=== PATIENT | female | born 1960 | race Caucasian/White ===

== ENCOUNTER 2016-06-18 14:47 | Inpatient (IN) ==
--- NOTE | 2016-06-18 15:17 | Emergency Department Note ---
Disposition Clinical Impression: Foot ulcer due to secondary DM, Hyperglycemia, Sepsis, Bandemia, Hypoxia, Dyspnea, Microcytic anemia Disposition: Admitted As Inpatient Condition: Fair General Adult HPI - General Chief complaint: ED Shortness of Breath/Dyspnea Stated complaint: JESSIE Time Seen by Provider: 06/18/16 15:01 Source: patient, family Limitations: physical limitation - History of Present Illness Pain Scale: 10 - Related Data Home Medications Medication Instructions Recorded Confirmed Insulin Glargine,Hum.rec.anlog 10/15/14 10/15/14 [Lantus Solostar] Insulin Glargine,Hum.rec.anlog 90 10/15/14 10/15/14 [Lantus Solostar] Medroxyprogesterone Acetate 10/15/14 10/15/14 [Depo-Provera] NovoLOG 10/15/14 10/15/14 Omeprazole [Prilosec] 10/15/14 10/15/14 Oxycodone HCl 5 mg PO 10/15/14 10/15/14 Sertraline [Zoloft] 100 mg PO DAILY 10/15/14 10/15/14 Allergies Allergy/AdvReac Type Severity Reaction Status Date / Time No Known Allergies Allergy Verified 06/18/16 14:55 Past Medical History - Past Medical History Medical history: Reports: diabetes, GERD, hyperlipidemia Surgical history: Reports: cholecystectomy Psychiatric history: Reports: anxiety [employer] history: Reports: no [employer] history - Social History Smoking Status: Never smoker Smokeless Tobacco Status: No Alcohol use: Reports: none Drug use: Reports: unknown Physical Exam - General Limitations: physical limitation General appearance: alert, in no apparent distress Course Vital Signs Temperature 98.0 F 06/18/16 14:55 Pulse Rate 111 06/18/16 14:55 Respiratory Rate 22 06/18/16 14:55 Blood Pressure 105/57 06/18/16 14:55 O2 Sat by Pulse Oximetry 94 06/18/16 14:55 Temperature 98.4 F 06/19/16 03:51 Pulse Rate 100 06/19/16 03:51 Respiratory Rate 16 06/19/16 03:51 Blood Pressure 99/54 06/19/16 03:51 O2 Sat by Pulse Oximetry 96 06/19/16 03:51 Oxygen Delivery Oxygen Delivery Room Air Medical Decision Making - Lab Data Result diagrams: 06/19/16 03:33 04/09/17 03:33 Lab Results 06/18/16 06/18/16 06/18/16 Range/Units 15:47 15:47 15:47 WBC 11.1 (4.3-11.1) K/mcL RBC 4.27 (3.82-4.97) M/mcL Hgb 10.3 L (11.5-15.4) g/dL Hct 33.4 L (35.3-44.9) % MCV 78.2 L (83.0-100.0) fL MCH 24.1 L (28.0-33.3) pg MCHC 30.8 L (31.6-35.5) g/dL RDW 15.9 H (11.5-14.5) % Plt Count 148 (140-400) K/mcL MPV 10.2 (9.4-12.4) fL Seg Neutrophils % 70.0 % Band Neutrophils % 20.0 H (0-4) % Lymphocytes % 2.0 % Monocytes % 6.0 % Metamyelocytes % 2.0 H (0) % Neutrophils # 10.0 H (1.6-8.9) K/mcL Lymphocytes # 0.2 L (0.6-4.6) K/mcL Monocytes # 0.7 (0.0-1.3) K/mcL Platelet Estimate Normal (Normal) Polychromasia 1+ A (Not Present) D-Dimer 6782 H (0-500) ng/mLFEU VBG pH (7.32-7.42) pH Units VBG pCO2 (41-51) mmHg VBG pO2 (25-40) mmHg VBG HCO3 (21-27) mEq/L Sodium 129 L (136-145) mEq/L Potassium 4.2 (3.5-4.5) mEq/L Chloride 94 L (98-109) mEq/L Carbon Dioxide 21 (19-29) mEq/L BUN 19 (7-20) mg/dL Creatinine 0.85 (0.57-1.11) mg/dL Est GFR ( Amer) > 60 (> 60) Est GFR (Non-Af Amer) > 60 (> 60) BUN/Creatinine Ratio 22 (6-26) Glucose 451 H (70-99) mg/dL Calculated Osmolality 290 (280-300) Lactic Acid (0.5-2.2) mmol/L Calcium 8.8 (8.6-10.8) mg/dL Total Bilirubin 1.3 H (0.2-1.2) mg/dL Direct Bilirubin 0.6 H (0.0-0.5) mg/dL Indirect Bilirubin 0.7 (0.0-1.2) mg/dL AST 9 (5-34) Units/L ALT 8 (0-55) Units/L Alkaline Phosphatase 86 (38-126) Units/L Troponin I (0-0.03) ng/mL B-Natriuretic Peptide (0-100) pg/mL Serum Total Protein 6.2 (6.0-8.3) g/dL Albumin 2.3 L (3.5-5.0) g/dL Globulin 3.9 H (2.4-3.5) g/dL Albumin/Globulin Ratio 0.6 L (1.1-2.2) Beta-Hydroxybutyric Acd > 2.00 H (0.02-0.27) mmol/L Urine Color (Yellow) Urine Clarity (Clear) Urine pH (5.0-8.0) pH Units Ur Specific [place] (1.010-1.025) Urine Protein (Neg-Trace) mg/dL Urine Glucose (UA) (Normal) mg/dL Urine Ketones (Negative) mg/dL Urine Blood (Negative) Urine Nitrite (Negative) Urine Bilirubin (Negative) Urine Urobilinogen (Normal) mg/dL Ur Leukocyte Esterase (Negative) Urine Microscopic RBC (0-3) per hpf Urine Microscopic WBC (0-3) per hpf Ur Squamous Epith Cells (None-Few) per lpf Urine Bacteria (None-Few) per hpf Hyaline Casts (None-Few) per lpf Ur Culture Indicated? (NO) 06/18/16 06/18/16 06/18/16 Range/Units 15:47 15:47 16:53 WBC (4.3-11.1) K/mcL RBC (3.82-4.97) M/mcL Hgb (11.5-15.4) g/dL Hct (35.3-44.9) % MCV (83.0-100.0) fL MCH (28.0-33.3) pg MCHC (31.6-35.5) g/dL RDW (11.5-14.5) % Plt Count (140-400) K/mcL MPV (9.4-12.4) fL Seg Neutrophils % % Band Neutrophils % (0-4) % Lymphocytes % % Monocytes % % Metamyelocytes % (0) % Neutrophils # (1.6-8.9) K/mcL Lymphocytes # (0.6-4.6) K/mcL Monocytes # (0.0-1.3) K/mcL Platelet Estimate (Normal) Polychromasia (Not Present) D-Dimer (0-500) ng/mLFEU VBG pH (7.32-7.42) pH Units VBG pCO2 (41-51) mmHg VBG pO2 (25-40) mmHg VBG HCO3 (21-27) mEq/L Sodium (136-145) mEq/L Potassium (3.5-4.5) mEq/L Chloride (98-109) mEq/L Carbon Dioxide (19-29) mEq/L BUN (7-20) mg/dL Creatinine (0.57-1.11) mg/dL Est GFR ( Amer) (> 60) Est GFR (Non-Af Amer) (> 60) BUN/Creatinine Ratio (6-26) Glucose (70-99) mg/dL Calculated Osmolality (280-300) Lactic Acid (0.5-2.2) mmol/L Calcium (8.6-10.8) mg/dL Total Bilirubin (0.2-1.2) mg/dL Direct Bilirubin (0.0-0.5) mg/dL Indirect Bilirubin (0.0-1.2) mg/dL AST (5-34) Units/L ALT (0-55) Units/L Alkaline Phosphatase (38-126) Units/L Troponin I 0.01 (0-0.03) ng/mL B-Natriuretic Peptide 193 H (0-100) pg/mL Serum Total Protein (6.0-8.3) g/dL Albumin (3.5-5.0) g/dL Globulin (2.4-3.5) g/dL Albumin/Globulin Ratio (1.1-2.2) Beta-Hydroxybutyric Acd (0.02-0.27) mmol/L Urine Color Yellow (Yellow) Urine Clarity Cloudy A (Clear) Urine pH 6.0 (5.0-8.0) pH Units Ur Specific [place] > 1.030 H (1.010-1.025) Urine Protein 30 H (Neg-Trace) mg/dL Urine Glucose (UA) >=1000 H (Normal) mg/dL Urine Ketones 40 H (Negative) mg/dL Urine Blood Trace H (Negative) Urine Nitrite Negative (Negative) Urine Bilirubin Moderate H (Negative) Urine Urobilinogen Normal (Normal) mg/dL Ur Leukocyte Esterase Negative (Negative) Urine Microscopic RBC 0-3 (0-3) per hpf Urine Microscopic WBC 15-30 H (0-3) per hpf Ur Squamous Epith Cells Many H (None-Few) per lpf Urine Bacteria Many H (None-Few) per hpf Hyaline Casts None Seen (None-Few) per lpf Ur Culture Indicated? YES A (NO) 06/18/16 06/18/16 Range/Units 17:53 17:53 WBC (4.3-11.1) K/mcL RBC (3.82-4.97) M/mcL Hgb (11.5-15.4) g/dL Hct (35.3-44.9) % MCV (83.0-100.0) fL MCH (28.0-33.3) pg MCHC (31.6-35.5) g/dL RDW (11.5-14.5) % Plt Count (140-400) K/mcL MPV (9.4-12.4) fL Seg Neutrophils % % Band Neutrophils % (0-4) % Lymphocytes % % Monocytes % % Metamyelocytes % (0) % Neutrophils # (1.6-8.9) K/mcL Lymphocytes # (0.6-4.6) K/mcL Monocytes # (0.0-1.3) K/mcL Platelet Estimate (Normal) Polychromasia (Not Present) D-Dimer (0-500) ng/mLFEU VBG pH 7.45 H (7.32-7.42) pH Units VBG pCO2 33 L (41-51) mmHg VBG pO2 89 H (25-40) mmHg VBG HCO3 22.9 (21-27) mEq/L Sodium (136-145) mEq/L Potassium (3.5-4.5) mEq/L Chloride (98-109) mEq/L Carbon Dioxide (19-29) mEq/L BUN (7-20) mg/dL Creatinine (0.57-1.11) mg/dL Est GFR ( Amer) (> 60) Est GFR (Non-Af Amer) (> 60) BUN/Creatinine Ratio (6-26) Glucose (70-99) mg/dL Calculated Osmolality (280-300) Lactic Acid 1.1 (0.5-2.2) mmol/L Calcium (8.6-10.8) mg/dL Total Bilirubin (0.2-1.2) mg/dL Direct Bilirubin (0.0-0.5) mg/dL Indirect Bilirubin (0.0-1.2) mg/dL AST (5-34) Units/L ALT (0-55) Units/L Alkaline Phosphatase (38-126) Units/L Troponin I (0-0.03) ng/mL B-Natriuretic Peptide (0-100) pg/mL Serum Total Protein (6.0-8.3) g/dL Albumin (3.5-5.0) g/dL Globulin (2.4-3.5) g/dL Albumin/Globulin Ratio (1.1-2.2) Beta-Hydroxybutyric Acd (0.02-0.27) mmol/L Urine Color (Yellow) Urine Clarity (Clear) Urine pH (5.0-8.0) pH Units Ur Specific [place] (1.010-1.025) Urine Protein (Neg-Trace) mg/dL Urine Glucose (UA) (Normal) mg/dL Urine Ketones (Negative) mg/dL Urine Blood (Negative) Urine Nitrite (Negative) Urine Bilirubin (Negative) Urine Urobilinogen (Normal) mg/dL Ur Leukocyte Esterase (Negative) Urine Microscopic RBC (0-3) per hpf Urine Microscopic WBC (0-3) per hpf Ur Squamous Epith Cells (None-Few) per lpf Urine Bacteria (None-Few) per hpf Hyaline Casts (None-Few) per lpf Ur Culture Indicated? (NO) Critical Care Time Critical Care Time: Yes Total Critical Care Time: 30 Attestation: SIRS criteria with sepsis protocol followed. IV fluids not given per weight based sepsis protocol due to chest x-ray findings and peripheral edema. Patient is not hypotensive. Broad spectrum antibiotics initiated Attestation Statement - Attestation Attestation: I examined this patient and my medical decision-making was reviewed with the IV TECHNICIAN/PA/Advanced Practice Nurse/Resident Physician. I agree with the documented findings, disposition and treatment plan as described except to the extent set forth below. Face to face time provided She presents with exertional dyspnea over the past several days. She recent saw her primary care provider who prescribed a diuretic. The patient voluntarily stopped taking it. On exam she is mildly tachypneic, tachycardic, hypoxic there is no evidence of increased work of breathing. She is smiling. The plan of care and management was discussed by me with the resident physician . 17:06: Patient has a left shift (bandemia). Etiology of infection in completely certain. She has a left diabetic foot ulcer. She is hyperglycemic. She has a macrocytic anemia. We will follow the sepsis protocol without getting the 30 mL per KG fluid bolus due to her peripheral edema and recent need for Lasix and chest x-ray findings suggestive of some congestive failure. She is not hypotensive.
--- NOTE | 2016-06-18 15:21 | Emergency Department Note ---
Disposition Clinical Impression: Foot ulcer due to secondary DM, Hyperglycemia, Bandemia, Hypoxia, Microcytic anemia Sepsis Qualifiers: Sepsis type: sepsis due to unspecified organism Qualified Code(s): A41.9 - Sepsis, unspecified organism Dyspnea Qualifiers: Dyspnea type: unspecified Qualified Code(s): R06.00 - Dyspnea, unspecified Disposition: Admitted As Inpatient Condition: Fair Referrals: Almas Ac DO [Primary Care Provider] - Forms: ED Satisfaction Letter Time of Disposition: 17:56 SOB HPI - General Chief Complaint: ED Shortness of Breath/Dyspnea Stated Complaint: JESSIE Time Seen by Provider: 06/18/16 15:01 Source: patient, family Mode of arrival: ambulatory Limitations: physical limitation Nursing Notes Reviewed: Yes Vital Signs Reviewed: Yes - History of Present Illness 55-year-old female history of insulin-dependent diabetes mellitus and liver hemangioma presents to the ED for difficulty breathing. This is been ongoing over the past 5 days. She reports noticing this on Monday while she is going to her family physicians office Dr. Almas Ac. As she was walking from her car into the office building she fell short of breath. She denies any chest pain, diaphoresis, nausea or vomiting. She was seen evaluated by her primary care physician and given diuretics. She voluntarily discontinued them on she was urinating more than usual and had 2 episodes of urinary functional incontinence due to her weakness and delay making it to the restroom. Denies any recent illness, fever, cough, chest pain. Denies any history of blood clots, recent long-distance travel, active cancer, hospitalization or major surgery. 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 Lenz for foot ulcers. History of cholecystectomy. She is a former smoker. Pt Subjective Complaint: shortness of breath - Related Data Home Medications Medication Instructions Recorded Confirmed Insulin Glargine,Hum.rec.anlog 10/15/14 10/15/14 [Lantus Solostar] Insulin Glargine,Hum.rec.anlog 90 10/15/14 10/15/14 [Lantus Solostar] Medroxyprogesterone Acetate 10/15/14 10/15/14 [Depo-Provera] NovoLOG 10/15/14 10/15/14 Omeprazole [Prilosec] 10/15/14 10/15/14 Oxycodone HCl 5 mg PO 10/15/14 10/15/14 Sertraline [Zoloft] 100 mg PO DAILY 10/15/14 10/15/14 Allergies Allergy/AdvReac Type Severity Reaction Status Date / Time No Known Allergies Allergy Verified 06/18/16 14:55 All systems ED: reviewed and negative except as stated. Constitutional: Denies: fever, chills Cardiovascular: Reports: dyspnea on exertion. Denies: chest pain Respiratory: Reports: dyspnea. Denies: cough, wheezes Gastrointestinal: Reports: vomiting. Denies: abdominal pain, nausea, diarrhea Genitourinary: Reports: frequency. Denies: urgency, dysuria, hematuria Musculoskeletal: Denies: back pain, neck pain Integumentary: Denies: rash Neurological: Denies: headache, weakness Endocrine: Reports: fatigue Past Medical History - Past Medical History Attestation: Yes The following information was validated with the patient. Source: patient Medical history: Reports: diabetes, GERD, hyperlipidemia Surgical history: Reports: cholecystectomy Psychiatric history: Reports: anxiety SCREEN MAKER history: Reports: no SCREEN MAKER history - Social History Smoking Status: Never smoker Smokeless Tobacco Status: No Alcohol use: Reports: none Drug use: Reports: unknown Physical Exam - General Limitations: physical limitation General appearance: alert, in no apparent distress - Head Head exam: atraumatic, normocephalic, normal inspection - Eye Eye exam: Present: normal appearance, PERRL, EOMI. Absent: scleral icterus - ENT ENT exam: normal exam, normal oropharynx, mucous membranes moist - Neck Neck exam: Present: normal inspection, full ROM, trachea midline - Chest Chest inspection: Present: normal inspection, symmetric chest wall rise. Absent : tenderness - Respiratory Respiratory exam: Present: normal lung sounds bilaterally, other (Low inspiratory effort, no crackles or rails). Absent: respiratory distress, wheezes - Cardiovascular Cardiovascular exam: Present: regular rate, normal rhythm, normal heart sounds - Abdominal Exam Abdominal exam: Present: soft, Non-Tender, normal bowel sounds, ascites. Absent : tenderness, distention, guarding, rebound, rigidity - Extremities Exam Extremities exam: Present: normal inspection, full ROM, normal capillary refill , pedal edema (+2). Absent: tenderness, calf tenderness - Neurological Exam Neurological exam: Present: alert, oriented X3, CN II-XII intact - Expanded Neurological Exam Patient oriented to: Present: person, place, time Speech: Present: fluid speech Cranial nerves: EOM function (II, III, IV, ): Normal, facial sensation (V): Normal, facial palsy (VII): Normal, gag reflex (IX): Normal, spinal accessory function (XI): Normal, tongue deviation (XII): Normal Cerebellar function: normal gait Motor strength - LUE: 5/5 Motor strength - RUE: 5/5 Motor strength - LLE: 5/5 Motor strength - RLE: 5/5 - Psychiatric Psychiatric exam: Present: normal affect, normal mood - Skin Skin exam: Present: warm, dry, intact, normal color Course Course Narrative: 55-year-old female presents to the ED for difficulty in breathing. She is afebrile, tachycardic, tachypneic and hypoxic. Does not appear in any respiratory distress. Speaks in full sentences. She is awake alert and oriented person place time. Heart is regular rate and rhythm. Lungs are clear auscultation bilaterally. She has +2 pitting edema bilaterally. She has an open left foot ulcer that is being addressed by her bike shop manager Dr. Lenz and recently debrided and placed on antibiotics. She has not started the antibiotics. Denies any history of cardiac ischemic disease or heart failure. We will get basic labs, troponin, BNP, CXR and EKG. She is low risk for PE and cannot be PERCed out, d-dimer ordered. Patient is in agreement with plan. - Reevaluation(s) Reevaluation #1: Patient has a bandemia along with tachycardia, SIRS criteria met. She is not hypotensive and CXR reveals moderate congestive heart failure. Due to recent treatment with Lasix for fluid overload and CXR findings will not initiate fluid resuscitation of 30 mL/kg. Unknown bandemia source possibly open wound left foot ulcer. She is hyperglycemic at 450 with false hyponatremia due to elevated glucose. 10U of regular insulin orderd. Lactate, serum ketones, VBG, and blood cultures ordered. Started on empiric broad spectrum antibiotics per sepsis order set Vanc and Zosyn. CTA pending with elevated d-dimer 6700. Will likely need admission for microcytic anemia, hyperglycemia, bandemia unknown source, SIRS, hypoxia, and dyspnea. Time: 17:03 Reevaluation #2: CT had the chest is not reveal any pulmonary embolism. There is atelectasis. Her serum ketones are elevated but she is not acidotic as her bicarb is 21. Her urine appears contaminated with many squamous cells as well as many bacteria , no leuk esterase or nitrites. Urine is cultured. Her pain is control at this moment. She is not actively nauseated or vomiting. She is has been initiated on broad spectrum antibiotics Zosyn and Vanc. Patient will be admitted for sepsis, bandemia, microcytic anemia, anemia, hyperglycemia, and foot ulcer. Time: 17:58 Reevaluation #3: Left foot x-ray shows soft tissue ulcer without evidence of osteomyelitis. Lactate 1.1. VBG shows slight alkalosis with 22 bicarb. O2 is 88. Time: 18:16 - Consultations Consultation #1: Spoke with on-call hospitalist sean Prado to admit for sepsis, bandemia, hypoxia, dyspnea, microcytic anemia, diabetic foot ulcer. No further orders at this time. Hospitalist made aware of pending lactate and left foot x-ray. History of Charcot foot and possible osteomyelitis. Time: 17:57 Vital Signs Temperature 98.0 F 06/18/16 14:55 Pulse Rate 111 06/18/16 14:55 Respiratory Rate 22 06/18/16 14:55 Blood Pressure 105/57 06/18/16 14:55 O2 Sat by Pulse Oximetry 94 06/18/16 14:55 Temperature 98.0 F 06/18/16 14:55 Pulse Rate 111 06/18/16 17:05 Respiratory Rate 20 06/18/16 17:05 Blood Pressure 102/45 06/18/16 17:05 O2 Sat by Pulse Oximetry 97 06/18/16 17:05 Oxygen Delivery Oxygen Delivery Nasal Cannula Shortness of Breath/Dyspnea - Medical Records Medical records reviewed: Yes I reviewed the patient's medical records. - Lab Data Lab results reviewed: Yes I reviewed the patient's lab results. Result diagrams: 06/18/16 15:47 06/18/16 15:47 Lab Results 06/18/16 06/18/16 06/18/16 Range/Units 15:47 15:47 15:47 WBC 11.1 (4.3-11.1) K/mcL RBC 4.27 (3.82-4.97) M/mcL Hgb 10.3 L (11.5-15.4) g/dL Hct 33.4 L (35.3-44.9) % MCV 78.2 L (83.0-100.0) fL MCH 24.1 L (28.0-33.3) pg MCHC 30.8 L (31.6-35.5) g/dL RDW 15.9 H (11.5-14.5) % Plt Count 148 (140-400) K/mcL MPV 10.2 (9.4-12.4) fL Seg Neutrophils % 70.0 % Band Neutrophils % 20.0 H (0-4) % Lymphocytes % 2.0 % Monocytes % 6.0 % Metamyelocytes % 2.0 H (0) % Neutrophils # 10.0 H (1.6-8.9) K/mcL Lymphocytes # 0.2 L (0.6-4.6) K/mcL Monocytes # 0.7 (0.0-1.3) K/mcL Platelet Estimate Normal (Normal) Polychromasia 1+ A (Not Present) D-Dimer 6782 H (0-500) ng/mLFEU VBG pH (7.32-7.42) pH Units VBG pCO2 (41-51) mmHg VBG pO2 (25-40) mmHg VBG HCO3 (21-27) mEq/L Sodium 129 L (136-145) mEq/L Potassium 4.2 (3.5-4.5) mEq/L Chloride 94 L (98-109) mEq/L Carbon Dioxide 21 (19-29) mEq/L BUN 19 (7-20) mg/dL Creatinine 0.85 (0.57-1.11) mg/dL Est GFR ( Amer) > 60 (> 60) Est GFR (Non-Af Amer) > 60 (> 60) BUN/Creatinine Ratio 22 (6-26) Glucose 451 H (70-99) mg/dL Calculated Osmolality 290 (280-300) Lactic Acid (0.5-2.2) mmol/L Calcium 8.8 (8.6-10.8) mg/dL Total Bilirubin 1.3 H (0.2-1.2) mg/dL Direct Bilirubin 0.6 H (0.0-0.5) mg/dL Indirect Bilirubin 0.7 (0.0-1.2) mg/dL AST 9 (5-34) Units/L ALT 8 (0-55) Units/L Alkaline Phosphatase 86 (38-126) Units/L Troponin I (0-0.03) ng/mL B-Natriuretic Peptide (0-100) pg/mL Serum Total Protein 6.2 (6.0-8.3) g/dL Albumin 2.3 L (3.5-5.0) g/dL Globulin 3.9 H (2.4-3.5) g/dL Albumin/Globulin Ratio 0.6 L (1.1-2.2) Beta-Hydroxybutyric Acd > 2.00 H (0.02-0.27) mmol/L Urine Color (Yellow) Urine Clarity (Clear) Urine pH (5.0-8.0) pH Units Ur Specific [place] (1.010-1.025) Urine Protein (Neg-Trace) mg/dL Urine Glucose (UA) (Normal) mg/dL Urine Ketones (Negative) mg/dL Urine Blood (Negative) Urine Nitrite (Negative) Urine Bilirubin (Negative) Urine Urobilinogen (Normal) mg/dL Ur Leukocyte Esterase (Negative) Urine Microscopic RBC (0-3) per hpf Urine Microscopic WBC (0-3) per hpf Ur Squamous Epith Cells (None-Few) per lpf Urine Bacteria (None-Few) per hpf Hyaline Casts (None-Few) per lpf Ur Culture Indicated? (NO) 06/18/16 06/18/16 06/18/16 Range/Units 15:47 15:47 16:53 WBC (4.3-11.1) K/mcL RBC (3.82-4.97) M/mcL Hgb (11.5-15.4) g/dL Hct (35.3-44.9) % MCV (83.0-100.0) fL MCH (28.0-33.3) pg MCHC (31.6-35.5) g/dL RDW (11.5-14.5) % Plt Count (140-400) K/mcL MPV (9.4-12.4) fL Seg Neutrophils % % Band Neutrophils % (0-4) % Lymphocytes % % Monocytes % % Metamyelocytes % (0) % Neutrophils # (1.6-8.9) K/mcL Lymphocytes # (0.6-4.6) K/mcL Monocytes # (0.0-1.3) K/mcL Platelet Estimate (Normal) Polychromasia (Not Present) D-Dimer (0-500) ng/mLFEU VBG pH (7.32-7.42) pH Units VBG pCO2 (41-51) mmHg VBG pO2 (25-40) mmHg VBG HCO3 (21-27) mEq/L Sodium (136-145) mEq/L Potassium (3.5-4.5) mEq/L Chloride (98-109) mEq/L Carbon Dioxide (19-29) mEq/L BUN (7-20) mg/dL Creatinine (0.57-1.11) mg/dL Est GFR ( Amer) (> 60) Est GFR (Non-Af Amer) (> 60) BUN/Creatinine Ratio (6-26) Glucose (70-99) mg/dL Calculated Osmolality (280-300) Lactic Acid (0.5-2.2) mmol/L Calcium (8.6-10.8) mg/dL Total Bilirubin (0.2-1.2) mg/dL Direct Bilirubin (0.0-0.5) mg/dL Indirect Bilirubin (0.0-1.2) mg/dL AST (5-34) Units/L ALT (0-55) Units/L Alkaline Phosphatase (38-126) Units/L Troponin I 0.01 (0-0.03) ng/mL B-Natriuretic Peptide 193 H (0-100) pg/mL Serum Total Protein (6.0-8.3) g/dL Albumin (3.5-5.0) g/dL Globulin (2.4-3.5) g/dL Albumin/Globulin Ratio (1.1-2.2) Beta-Hydroxybutyric Acd (0.02-0.27) mmol/L Urine Color Yellow (Yellow) Urine Clarity Cloudy A (Clear) Urine pH 6.0 (5.0-8.0) pH Units Ur Specific [place] > 1.030 H (1.010-1.025) Urine Protein 30 H (Neg-Trace) mg/dL Urine Glucose (UA) >=1000 H (Normal) mg/dL Urine Ketones 40 H (Negative) mg/dL Urine Blood Trace H (Negative) Urine Nitrite Negative (Negative) Urine Bilirubin Moderate H (Negative) Urine Urobilinogen Normal (Normal) mg/dL Ur Leukocyte Esterase Negative (Negative) Urine Microscopic RBC 0-3 (0-3) per hpf Urine Microscopic WBC 15-30 H (0-3) per hpf Ur Squamous Epith Cells Many H (None-Few) per lpf Urine Bacteria Many H (None-Few) per hpf Hyaline Casts None Seen (None-Few) per lpf Ur Culture Indicated? YES A (NO) 06/18/16 06/18/16 Range/Units 17:53 17:53 WBC (4.3-11.1) K/mcL RBC (3.82-4.97) M/mcL Hgb (11.5-15.4) g/dL Hct (35.3-44.9) % MCV (83.0-100.0) fL MCH (28.0-33.3) pg MCHC (31.6-35.5) g/dL RDW (11.5-14.5) % Plt Count (140-400) K/mcL MPV (9.4-12.4) fL Seg Neutrophils % % Band Neutrophils % (0-4) % Lymphocytes % % Monocytes % % Metamyelocytes % (0) % Neutrophils # (1.6-8.9) K/mcL Lymphocytes # (0.6-4.6) K/mcL Monocytes # (0.0-1.3) K/mcL Platelet Estimate (Normal) Polychromasia (Not Present) D-Dimer (0-500) ng/mLFEU VBG pH 7.45 H (7.32-7.42) pH Units VBG pCO2 33 L (41-51) mmHg VBG pO2 89 H (25-40) mmHg VBG HCO3 22.9 (21-27) mEq/L Sodium (136-145) mEq/L Potassium (3.5-4.5) mEq/L Chloride (98-109) mEq/L Carbon Dioxide (19-29) mEq/L BUN (7-20) mg/dL Creatinine (0.57-1.11) mg/dL Est GFR ( Amer) (> 60) Est GFR (Non-Af Amer) (> 60) BUN/Creatinine Ratio (6-26) Glucose (70-99) mg/dL Calculated Osmolality (280-300) Lactic Acid 1.1 (0.5-2.2) mmol/L Calcium (8.6-10.8) mg/dL Total Bilirubin (0.2-1.2) mg/dL Direct Bilirubin (0.0-0.5) mg/dL Indirect Bilirubin (0.0-1.2) mg/dL AST (5-34) Units/L ALT (0-55) Units/L Alkaline Phosphatase (38-126) Units/L Troponin I (0-0.03) ng/mL B-Natriuretic Peptide (0-100) pg/mL Serum Total Protein (6.0-8.3) g/dL Albumin (3.5-5.0) g/dL Globulin (2.4-3.5) g/dL Albumin/Globulin Ratio (1.1-2.2) Beta-Hydroxybutyric Acd (0.02-0.27) mmol/L Urine Color (Yellow) Urine Clarity (Clear) Urine pH (5.0-8.0) pH Units Ur Specific [place] (1.010-1.025) Urine Protein (Neg-Trace) mg/dL Urine Glucose (UA) (Normal) mg/dL Urine Ketones (Negative) mg/dL Urine Blood (Negative) Urine Nitrite (Negative) Urine Bilirubin (Negative) Urine Urobilinogen (Normal) mg/dL Ur Leukocyte Esterase (Negative) Urine Microscopic RBC (0-3) per hpf Urine Microscopic WBC (0-3) per hpf Ur Squamous Epith Cells (None-Few) per lpf Urine Bacteria (None-Few) per hpf Hyaline Casts (None-Few) per lpf Ur Culture Indicated? (NO) - Radiology Data Radiology results reviewed: Yes I reviewed the patient's radiology results. Foot X-Ray 06/18/16 17:32 IMPRESSION: 1. Soft tissue ulcer involving the plantar aspect of the foot at the level of the metatarsophalangeal joint. 2. No radiographic evidence for osteomyelitis. D/ / Ruslan Cardenas MD / Ruslan Cardenas MD Interpreting Provider: Ruslan Cardenas MD Chest X-Ray 06/18/16 15:19 IMPRESSION: Findings suggestive of mild congestive heart failure. Atelectasis or infiltrate cannot be excluded in the lung bases. Follow up to resolution is suggested. D/ / 06/18/2016 16:21:52 Amaris Hickman MD / shankar Interpreting Provider: Amaris Hickman MD Chest CTA 06/18/16 16:06 IMPRESSION: 1. No evidence of pulmonary embolism. 2. Small bilateral pleural effusions. Patchy bibasilar airspace opacities are present, which are favored to represent compressive atelectasis although a component of pneumonia cannot be entirely excluded radiographically. 3. Coronary atherosclerosis. 4. Partially visualized 9.1 x 15.2 cm mass within the right hepatic lobe, which contains fat, soft tissue, and calcifications. The differential includes hepatic adenoma, teratoma, angiomyolipoma, and hepatocellular carcinoma. A small amount of ascites is seen in the upper abdomen. Further evaluation with liver mass protocol CT is recommended. D/ : / 06/18/2016 17:39:54 Diego Romero MD / Albertina Carroll Interpreting Provider: Diego Romero MD - EKG Data EKG attestation: Yes I reviewed and interpreted this EKG. EKG results narrative: EKG performed 1530 sinus tachycardia 111 bpm, good R-R wave progression, mobile axis, there is moderate ST depressions in lateral leads <0.05, T-wave inversion in lead III seen on prior EKG. Intervals are within normal limits NV interval 134 QRS 93 QT QTC 325 391. Compared to old EKG performed 09/10/2014 shows consistent findings normal sinus rhythm with T wave inversion in lead III. No acute ischemic changes.
[2016-06-18] MEDS ORDERED: *HR* Morphine 2 MG/ML SYRINGE IV ONE (15:32)
[2016-06-18] MEDS ORDERED: Ondansetron 4 MG/2 ML VIAL IV ONE (15:32)
[2016-06-18 15:55] LABS: Hematocrit 33.4 % (35.3-44.9); Hemoglobin 10.3 g/dL (11.5-15.4); Mean Corpuscular HGB Conc 30.8 g/dL (31.6-35.5); Mean Corpuscular Hemoglobin 24.1 pg (28.0-33.3); Mean Corpuscular Volume 78.2 fL (83.0-100.0); Mean Platelet Volume 10.2 fL (9.4-12.4); Monocytes # 0.7 K/mcL (0.0-1.3); Platelet Count 148 K/mcL (140-400); Red Blood Count 4.27 M/mcL (3.82-4.97); Red Cell Distribution Width 15.9 % (11.5-14.5)
[2016-06-18 16:11] LABS: Alanine Aminotransferase 8 Units/L (0-55); Albumin 2.3 g/dL (3.5-5.0); Albumin/Globulin Ratio 0.6 (1.1-2.2); Alkaline Phosphatase 86 Units/L (38-126); Aspartate Amino Transferase 9 Units/L (5-34); BUN/Creatinine Ratio 22 (6-26); Bilirubin,Direct 0.6 mg/dL (0.0-0.5); Bilirubin,Indirect 0.7 mg/dL (0.0-1.2); Bilirubin,Total 1.3 mg/dL (0.2-1.2); Blood Urea Nitrogen 19 mg/dL (7-20); Calcium 8.8 mg/dL (8.6-10.8); Carbon Dioxide 21 mEq/L (19-29); Chloride 94 mEq/L (98-109); Globulin 3.9 g/dL (2.4-3.5); Glucose 451 mg/dL (70-99); Osmolality,Calculated 290 (280-300); Potassium 4.2 mEq/L (3.5-4.5); Sodium 129 mEq/L (136-145); Total Protein 6.2 g/dL (6.0-8.3); eGFR For African Americans > 60 (> 60); eGFR For Non-African Americans > 60 (> 60)
[2016-06-18 16:28] LABS: Lymphocytes # 0.2 K/mcL (0.6-4.6)
[2016-06-18 16:29] LABS: Platelet Estimate Normal (Normal); Polychromasia 1+ (Not Present)
[2016-06-18] MEDS ORDERED: Insulin Regular, Human 100 UNIT/ML SQ ONE (16:54)
[2016-06-18] MEDS ORDERED: Piperacillin/Tazobactam 3.375 GM in D5% in Water (Mini-Bag+) 100 ML IVPB ONE (17:06)
[2016-06-18] MEDS ORDERED: Vancomycin 1,250 MG in D5% in Water 250 ML IVPB ONE (17:06)
[2016-06-18 17:07] LABS: Bilirubin,Urine Moderate (Negative); Blood,Urine Trace (Negative); Clarity,Urine Cloudy (Clear); Color,Urine Yellow (Yellow); Glucose,Urine (UA) >=1000 mg/dL (Normal); Ketones,Urine 40 mg/dL (Negative); Leukocyte Esterase,Urine Negative (Negative); Nitrite,Urine Negative (Negative); Protein,Urine 30 mg/dL (Neg-Trace); Specific Gravity,Urine > 1.030 (1.010-1.025); Urobilinogen,Urine Normal (Normal)
[2016-06-18 17:10] LABS: Bacteria,Urine Many per hpf (None-Few); Hyaline Casts,Urine None Seen per lpf (None-Few); Squamous Epithelial Cell,Urine Many per lpf (None-Few); WBC,Urine 15-30 per hpf (0-3)
[2016-06-18 17:20] LABS: RBC,Urine 0-3 per hpf (0-3)
[2016-06-18 17:21] LABS: Beta-Hydroxybutyric Acid > 2.00 mmol/L (0.02-0.27)
[2016-06-18 18:01] LABS: VBG HCO3 22.9 mEq/L (21-27); VBG PH 7.45 pH Units (7.32-7.42)
[2016-06-18] MEDS ORDERED: Acetaminophen 325 MG TABLET PO PRN (20:14)
[2016-06-18] MEDS ORDERED: *HR* Morphine 2 MG/ML SYRINGE IVP PRN (20:14)
[2016-06-18] MEDS ORDERED: Naloxone 0.4 MG/ML INJ IVP PRN (20:14)
[2016-06-18] MEDS ORDERED: Ondansetron 4 MG/2 ML VIAL IVP PRN (20:14)
[2016-06-18] MEDS ORDERED: *HR* Dextrose 50 % in Water (Syg) 50 ML SYRINGE IVP PRN (20:29)
[2016-06-18] MEDS ORDERED: Dextrose Gel 15 GM PO PRN ×2 (20:29)
[2016-06-18] MEDS ORDERED: D5% in Water 1,000 ML IVC PRN (20:29)
--- NOTE | 2016-06-18 20:48 | Internal Med History&Physical ---
Date of Encounter: 06/18/16 Time of Encounter: 19:50 Assessment and Plan (1) Sepsis Current visit: Yes Status: Acute 1. I suspect foot ulcers are the source. 2. Will Bolus with IVF and continue MIV. 3. Blood cultures have been drawn. Foot/wound cultures reviewed (Group B Strep and MSSA) and will cater antibiotics to organisms identified. 4. Will monitor hemodynamics and treat accordingly. Qualifiers: Sepsis type: methicillin susceptible Staphylococcus aureus Qualified Code(s ): A41.01 - Sepsis due to Methicillin susceptible Staphylococcus aureus (2) Diabetic foot ulcer Current visit: Yes Status: Chronic 1. I reviewed wound culture results. 2. I consulted Dr. Lenz. 3. Antibiotics catered to organisms. Qualifiers: Diabetic foot ulcer location: midfoot Diabetes mellitus type: type 1 Laterality: unspecified laterality Non-pressure ulcer stage: limited to breakdown of skin Qualified Code(s): E10.621 - Type 1 diabetes mellitus with foot ulcer; L97.401 - Non-pressure chronic ulcer of unspecified heel and midfoot limited to breakdown of skin (3) Exertional dyspnea Current visit: Yes Status: Acute 1. Will cycle troponins and EKGs. 2. Will order ECHO to evaluate LVEF. 3. Clinically, I do not feel she is in CHF. Rather, I suspect she is septic, and I will treat accordingly and monitor closely. 4. Exertional dyspnea may be an anginal equivalent. (4) Hemangioma of liver Current visit: Yes Status: Chronic 1. Patient follows with Dr. Ch at [facility]. 2. Outpatient follow-up recommended. (5) Insulin dependent diabetes mellitus Current visit: Yes Status: Chronic 1. Will schedule basal insulin and add SSI. 2. Monitor glucose and adjust accordingly. 3. Check A1C and consult life skills educator. (6) DVT prophylaxis Current visit: Yes Status: Acute 1. Heparin SQ. Internal Medicine - H&P: HPI Chief complaint: foot infection; dyspnea on exertion Admitted From: Emergency Dept Plans for Post Hospital Care: Home History of present illness: Ms. Anthony Cook is a 55 year old female who presented to the ER [facility] with a several day history of fevers, chills, exertional dyspnea, and worsening pain in her feet. She also complains of increased swelling. Her family doctor placed her on Lasix, but she stopped it after a few days. She also had an antibiotic prescription from Dr. Lenz, but she has not taken the antibiotics just yet. She had a wound culture growing out group B streptococcus and Staph Aureus also. Over the last 24 hours, her symptoms progressively worsened point where she fell she needed to go to the emergency department. She therefore came to the ER where she was diagnosed with sepsis. Blood cultures were drawn and and antibiotics were initiated. She did not receive any fluid boluses, however, because of concerns for CHF. Upon my assessment of the patient, she appears to be intravascularly dry and she has dry mucous membranes. She does have some generalized edema, but I do not feel she is in CHF. Furthermore, she does not give any history of heart disease or CHF. I am more concerned about sepsis and will treat her as such along with a fluid bolus. She does complain of exertional dyspnea which may be an anginal equivalent. She has no chest pain. Her glucose control has been poor and averaging about 300-400. I called Dr. Lenz and ask him to see her in consultation. X-rays were done of the feet which did not reveal any bone involvement. Past Med Surg Social Fam HX - Past Medical History Attestation: Yes The following information was validated with the patient. Source: patient, old records reviewed Medical history: diabetes, GERD, hyperlipidemia, other (hemangioma of liver -- follows with Dr. Ch at [facility]) Psychiatric history: anxiety - Past Surgical History Surgical History: cholecystectomy, orthopedic, other (wound/foot surgery) - Social History Smoking Status: Never smoker Smokeless Tobacco Status: No Alcohol use: none Drug use: unknown Current living situation: Home, With Family Activity Level: Independent ambulation Recent Out of Country Travel Within the Last 8 Weeks: No - Family History Mother Living Status: Hx Family Endocrine Disorder: Yes Father Living Status: Hx Family Endocrine Disorder: Yes Internal Medicine - H&P: Meds Insulin Glargine,Hum.rec.anlog [Lantus Solostar] 10/15/14 [History] Insulin Glargine,Hum.rec.anlog [Lantus Solostar] 90 10/15/14 [History] Medroxyprogesterone Acetate [Depo-Provera] 10/15/14 [History] NovoLOG 10/15/14 [History] Omeprazole [Prilosec] 10/15/14 [History] Oxycodone HCl 5 mg PO 10/15/14 [History] Sertraline [Zoloft] 100 mg PO DAILY 10/15/14 [History] Allergies No Known Allergies Allergy (Verified 06/18/16 14:55) - Constitutional Constitutional: chills, fatigue, fever(s) - EENT Eyes: no blurry vision, no change in vision Ears: no ear pain, no tinnitus Nose, mouth and throat: no nasal congestion, no sinus pain, no sinus pressure, no sore throat - Cardiovascular Cardiovascular ROS IM: dyspnea, dyspnea on exertion, edema, no chest pain, no lightheadedness, no orthopnea, no palpitations, no paroxysmal nocturnal dyspnea , no syncope - Respiratory Respiratory: dyspnea, no cough, no hemoptysis, no wheezing, no chest congestion , no excessive phlegm production - Gastrointestinal Gastrointestinal: bloating, diarrhea, nausea, vomiting, no abdominal pain, no hematemesis, no hematochezia, no melena - Genitourinary Genitourinary: no dysuria, no flank pain, no hematuria - Musculoskeletal Musculoskeletal ROS IM: arthralgias (feet), deformity (left hand - congenital), no back pain - Integumentary Integumentary IM: skin ulcer (feet -- diabetic), no rash, no jaundice - Neurological Neurological ROS: no dizziness, no focal weakness, no frequent falls, no headache(s) - Psychiatric Psychiatric: no anxiety, no depression - Endocrine Endocrine IM: polydipsia, polyuria, no cold intolerance, no heat intolerance, no polyphagia - Hematologic/Lymphatic Hematologic/Lymphatic: no easy bruising, no lymphadenopathy - Allergic/Immunologic Allergic/Immunologic: no wheezing, no GI upset with certain foods - Constitutional Vitals: Temp Pulse Resp BP Pulse Ox 99.6 F 107 18 98/55 95 06/18/16 20:19 06/18/16 20:19 06/18/16 20:19 06/18/16 20:19 06/18/16 20:19 General appearance: Present: cooperative, mild distress, A&O X 3, pleasant, answers questions appropriately Exam: looks dry; dry mucous membranes; + skin tenting - Head Head exam: Present: atraumatic, normal inspection - Expanded Head Exam Head exam expanded: Absent: abrasion, contusion, general tenderness - Eye Eye exam: Present: EOMI, normal appearance, PERRL. Absent: scleral icterus Pupils: Present: normal accommodation Additional comments: eyes sunken - ENT ENT exam: Present: mucous membranes dry, normal exam, normal oropharynx - Neck Neck exam general surgery: Present: full ROM, supple. Absent: lymphadenopathy, tenderness, nuchal rigidity, thyromegaly - Expanded Neck Exam Neck exam: Absent: carotid bruit - Respiratory Respiratory exam: Present: CTAB. Absent: accessory muscle use, chest wall tenderness, rales, respiratory distress, rhonchi, wheezes - Cardiovascular Cardiovascular exam: Present: RRR, +S1, +S2, tachycardia. Absent: diastolic murmur, JVD, systolic murmur - GI/Abdominal GI/Abdominal exam: Present: distended, hepatomegaly, soft, no peritoneal signs. Absent: guarding, rebound, splenomegaly, tenderness - Extremities Exam Extremities exam: Present: full ROM, tenderness (feet), warm. Absent: calf tenderness, joint swelling Additional comments: ulcer noted on plantar aspect of left foot; ulcer on dorsum of right foot with serous drainage - Back Exam Back exam: Absent: CVA tenderness (L), CVA tenderness (R) - Neurological Exam Neurological exam: Present: alert, CN II-XII intact, motor sensory deficit ( decreased sensation in feet consistent with neuropathy), oriented X3 - Psychiatric Psychiatric exam: Present: normal affect, normal mood - Skin Skin exam: Present: dry, warm. Absent: rash Internal Med - H&P Results - Labs CBC & Chem 7: 06/18/16 15:47 06/18/16 15:47 - EKG Data -: EKG Interpreted by Myself EKG shows normal: sinus rhythm - EKG Data EKG comments: 06/18/16 21:44 Subtle lateral wall ischemia with ST-T depression - Diagnostic Studies Chest x-ray Status: image reviewed by me (Subtle pleural effusion; no appreciable infiltrate ; compared to chest CT as well)
[2016-06-18] MEDS ORDERED: Vancomycin (wt based) 1,000 MG VIAL IVPB SCH (21:00)
[2016-06-18 21:15] LABS: INR 1.5; Prothrombin Time 16.2 Seconds (9.4-12.1)
[2016-06-18 21:18] LABS: Activated Partial Thrombo Time 23.5 Seconds (26.0-36.0)
[2016-06-18] MEDS: 0.9 % Sodium Chloride 1,000 ML IVC SCH ×2 (22:08→23:50)
[2016-06-18] MEDS: 0.9 % Sodium Chloride w KCl 20 MEQ/1,000 ML MLS IVC SCH (22:10)
[2016-06-18] MEDS: *HR* Heparin 5,000 UNIT/ML VIAL SQ SCH (22:10)
[2016-06-18] MEDS: Insulin DETEMIR 100 UNIT/ML X5UNITS SQ SCH (22:10)
[2016-06-18] MEDS ORDERED: 0.9 % Sodium Chloride 1,000 ML ONE (23:48)
[2016-06-19 01:14] LABS: Hemoglobin A1C 12.6 %
[2016-06-19 04:49] LABS: Hematocrit 31.8 % (35.3-44.9); Hemoglobin 9.6 g/dL (11.5-15.4); Mean Corpuscular HGB Conc 30.2 g/dL (31.6-35.5); Mean Corpuscular Hemoglobin 23.8 pg (28.0-33.3); Mean Corpuscular Volume 78.9 fL (83.0-100.0); Monocytes # 0.6 K/mcL (0.0-1.3); Nucleated Red Blood Cells 0.2 /100 WBC (0); Platelet Count 142 K/mcL (140-400); Red Blood Count 4.03 M/mcL (3.82-4.97); Red Cell Distribution Width 16.2 % (11.5-14.5)
[2016-06-19 05:09] LABS: Albumin/Globulin Ratio 0.5 (1.1-2.2); Alkaline Phosphatase 77 Units/L (38-126); Aspartate Amino Transferase 11 Units/L (5-34); BUN/Creatinine Ratio 24 (6-26); Bilirubin,Total 0.9 mg/dL (0.2-1.2); Blood Urea Nitrogen 15 mg/dL (7-20); Calcium 8.4 mg/dL (8.6-10.8); Carbon Dioxide 23 mEq/L (19-29); Chloride 99 mEq/L (98-109); Chol/HDL Ratio 13.5 (0-4.9); Cholesterol 149 mg/dL (< 200); Globulin 3.5 g/dL (2.4-3.5); Glucose 237 mg/dL (70-99); HDL Cholesterol 11 mg/dL (40-59); LDL Cholesterol,Calculated 83 mg/dL (0-99); Magnesium 1.6 mg/dL (1.6-2.6); Osmolality,Calculated 283 (280-300); Potassium 3.8 mEq/L (3.5-4.5); Sodium 132 mEq/L (136-145); Total Protein 5.4 g/dL (6.0-8.3); Triglycerides 274 mg/dL (< 150); eGFR For African Americans > 60 (> 60); eGFR For Non-African Americans > 60 (> 60)
[2016-06-19 05:15] LABS: Alanine Aminotransferase < 6 Units/L (0-55); Albumin 1.9 g/dL (3.5-5.0)
[2016-06-19 05:28] LABS: Band Neutrophils % 23.6 % (0-4); Lymphocytes # 0.8 K/mcL (0.6-4.6); Lymphocytes % 9.1 %; Monocytes % 7.3 %; Platelet Estimate Normal (Normal); Reactive Lymphocytes Present (Not Present)
[2016-06-19] MEDS: 0.9 % Sodium Chloride w KCl 20 MEQ/1,000 ML MLS IVC SCH (06:25)
[2016-06-19] MEDS: *HR* Heparin 5,000 UNIT/ML VIAL SQ SCH ×3 (06:26→21:37)
[2016-06-19] MEDS: Insulin DETEMIR 100 UNIT/ML X5UNITS SQ SCH ×2 (08:49→21:32)
[2016-06-19] MEDS: Insulin LISPRO 300 UNITS/3 ML VIAL SQ SCH ×3 (08:49→16:59)
[2016-06-19] MEDS: Vancomycin 1,250 MG in D5% in Water 250 ML IVPB SCH ×2 (08:50→20:11)
[2016-06-19] MEDS: *HR* OxyCODONE/APAP 5/325 TABLET PO PRN ×3 (08:50→21:37)
--- NOTE | 2016-06-19 08:53 | Internal Med Progress Note ---
Date of Encounter: 06/19/16 Time of Encounter: 08:48 - Assessment and plan (1) Exertional dyspnea Current Visit: Yes Status: Acute Assessment and plan: CTA chest showed no e/o PE but possible Pneumonia; continue IV antibiotics and f /up blood cultures. F/up Echocardiogram to r/o- CHF as a cause for dyspnea; continue supplemental O2 and supportive care; (2) Sepsis Current Visit: Yes Status: Acute Assessment and plan: likely due to right leg cellulitis and left diabetic foot ulcer and Pneumonia; f /up blood and wound cultures and continue IV Vancomycin and Zosyn for now; wound cultures as outpatient from 06/14/16 grow MSSA and GBS; Qualifiers: Sepsis type: methicillin susceptible Staphylococcus aureus Qualified Code(s ): A41.01 - Sepsis due to Methicillin susceptible Staphylococcus aureus (3) Microcytic anemia Current Visit: Yes Status: Chronic (4) Diabetic foot ulcer Current Visit: Yes Status: Chronic Assessment and plan: Podiatry on board, recommend local wound care, special fit boots and pressure relief in B/L feet; right foot bulla has been drained with serosanguineous fluid ; f/up repeat wound cultures and continue IV antibiotics as above; Qualifiers: Diabetic foot ulcer location: unspecified part of foot Diabetes mellitus type: type 2 Laterality: left Non-pressure ulcer stage: limited to breakdown of skin Qualified Code(s): E11.621 - Type 2 diabetes mellitus with foot ulcer; L97.521 - Non-pressure chronic ulcer of other part of left foot limited to breakdown of skin (5) Hemangioma of liver Current Visit: Yes Status: Chronic (6) Insulin dependent diabetes mellitus Current Visit: Yes Status: Chronic Assessment and plan: HbA1C noted to be 12.6% but blood sugars in the hospital have been well- controlled and low normal; questionable compliance; will decrease dose of basal insulin and continue Accucheck blood glucose monitoring with basal bolus insulin regimen; diabetic diet; - Subjective Interval history: Reports pain in bilateral feet. Continues to have some exertional dyspnea. No chest pain, vomiting or diarrhea, does report nausea. - Constitutional Vitals: Temp Pulse Resp BP Pulse Ox 98.4 F 104 15 102/62 95 06/19/16 07:33 06/19/16 07:33 06/19/16 07:33 06/19/16 07:33 06/19/16 07:33 General appearance: Present: cooperative, A&O X 3, answers questions appropriately - Respiratory Respiratory exam: Present: rales (Bibasilar inspiratory crackles). Absent: accessory muscle use, rhonchi, wheezes - Cardiovascular Cardiovascular exam: Present: RRR, +S1, +S2. Absent: diastolic murmur, gallop, rubs, systolic murmur - GI/Abdominal GI/Abdominal exam: Present: normal bowel sounds, soft, no peritoneal signs. Absent: distended, tenderness - Extremities Exam Extremities exam: Present: pedal edema (2+ pitting B/L edema), warm, radial pulses palpable and symetrical. Absent: calf tenderness, cyanotic Additional comments: Right leg and foot with diffuse edema, warmth, tenderness with 2 blisters on right foot-dorsum and dorsolateral area Left plantar foot, under great toe- 3*4cm ulcer with yellowish exudate Internal Medicine: Result - Labs CBC & Chem 7: 06/23/16 05:20 06/23/16 04:43 Labs: Short CBC 06/19/16 Range/Units 03:33 WBC 8.4 (4.3-11.1) K/mcL Hgb 9.6 L (11.5-15.4) g/dL Hct 31.8 L (35.3-44.9) % Plt Count 142 (140-400) K/mcL Neutrophils # 7.0 (1.6-8.9) K/mcL BMP 06/19/16 03:33 Sodium 132 L Potassium 3.8 Chloride 99 Carbon Dioxide 23 BUN 15 Creatinine 0.63 Glucose 237 H Calcium 8.4 L Cardiac Enzymes 06/18/16 06/19/16 Range/Units 21:00 03:33 Troponin I 0.02 0.02 (0-0.03) ng/mL Liver Function 06/19/16 Range/Units 03:33 Total Bilirubin 0.9 (0.2-1.2) mg/dL AST 11 (5-34) Units/L ALT < 6 (0-55) Units/L Alkaline Phosphatase 77 (38-126) Units/L Albumin 1.9 L (3.5-5.0) g/dL - ABG Interpretation ABG results: PT/INR, D-dimer PT 16.2 Seconds (9.4-12.1) H 06/18/16 21:00 D-Dimer 6782 ng/mLFEU (0-500) H 06/18/16 15:47 Consult Discharge Plan - Plan Referrals: Almas Ac DO [Primary Care Provider] - 06/27/16 3:00 pm (Please follow up as schedule...)
[2016-06-19] MEDS: Piperacillin/Tazobactam 3.375 GM in D5% in Water (Mini-Bag+) 100 ML IVPB SCH ×2 (10:26→17:24)
--- NOTE | 2016-06-19 16:49 | ECHO - Doppler Report ---
Echocardiogram Name: Maggie Cook Date of Study: 06/19/2016 Date: 1960 Ht: 70.0 in Medical Record#: [id number] Age: 55 Wt: 175.0 lb Gender: Female BSA: 1.97 Order #: [id number] Location: [facility] Room #: 2A22 Reading Physician: Jam Gomez DO, NAM HUNTER Bi Lead: Melody Kowalski RDCS Ordering Physician: Antonio Eaton MD Primary Physician: Almas Ac DO Indications: Dyspnea on exertion Impressions: LVEF 55-60%. Normal LV chamber size, wall thickness and function. Moderate left ventricular diastolic dysfunction. Normal right ventricular structure and function. No significant valvular dysfunction. No evidence of pulmonary hypertension. Left Ventricular Wall Motion: Rest Echo Findings All wall segments showed normal motion. Findings: Study Quality * Technically adequate exam. ECG Findings * Sinus rhythm with PACs. Left Ventricle * LVEF 55-60%. * Normal LV chamber size, wall thickness and function. * Moderate left ventricular diastolic dysfunction. Right Ventricle * Normal right ventricular structure and function. Left Atrium * Moderately dilated left atrium. Right Atrium * Mildly dilated right atrium. Interatrial Septum * Interatrial septum not well evaluated. Aortic Valve * Trileaflet aortic valve with normal function. * No aortic regurgitation. * No aortic stenosis. Mitral Valve * Mildly thickened mitral valve leaflets. * Trace mitral regurgitation. * No mitral stenosis. Tricuspid Valve * Normal tricuspid valve structure and function. * Trace tricuspid regurgitation. * No evidence of pulmonary hypertension. Pulmonic Valve * Normal pulmonic valve structure and function. * No pulmonic regurgitation. Aorta * Normally sized aortic root. Pericardium * There is a trivial pericardial effusion present. IVC * Normal IVC dimensions and inspiratory collapse. Pulmonary Artery * Normal visualized portions of the main pulmonary artery. History Diabetes Hypercholesteremia Family History of CAD Measurements: BP: 99/ 54 2D Normal Values RVIDd: 3.40 cm <2.7 cm IVSd: 1.00 cm 0.6 - 1.0 cm LVIDd: 4.70 cm 3.7 - 5.6 cm LVPWd: 1.00 cm 0.6 - 1.1 cm LVIDs: 3.10 cm 1.5 - 3.6 cm AO: 2.60 cm < 4.0 cm LA: 4.20 cm 2.0 - 4.0cm %FS: 34.00 cm >25 % LVOT Diam: 2.00 cm LA volume: 69 Mitral Valve Peak E:1.01 m/sec Peak A:.76 m/sec E/A Ratio:1.3 Peak E' Lat Fuentes:9.07 cm/s Peak E' Med Fuentes:9.07 cm/s E/E' Lat Ratio:11.1 E/E' Med Ratio:11.1 Tricuspid Valve TV Regurg Peak Grad: 28.00mmHg TV Regurg Peak Fuentes: 2.64m/sec Updated by Jam Gomez DO, FACFelipa, NAM, ERICK on 06/19/2016 4:44:31 PM electronically signed on 06/19/2016 4:45:22 PM with status of Final Wall Motion Pascal: 1=Normal, 2=Hypokinesis, 3=Akinesis, 4=Dyskinesis, 5=Aneurysmal, 6=Hyperkinetic, X=Not Visualized (Blank)=Missing
--- NOTE | 2016-06-19 18:01 | Podiatry Consult Note ---
Date of Encounter: 06/19/16 Time of Encounter: 17:58 Assessment and Plan (1) Skin bulla Current visit: Yes Status: Acute Assessment: #1 bulla 2 right dorsal foot without, purulence or exudate. No penetration of the dermis. #2 edema graded 2/4 of the right lower extremity from toes to tibia #3 no clinical evidence to suggest we have neck and infection/abscess of the right foot because of the lack of skin compromise other than the bulla Plan: #1 spontaneous opening of the dorsal bulla with roof intact #2 bulla lateral aspect right foot with puncture aspiration/drainage with only serosanguineous drainage/exudate. #3 orders for local wound care. (2) Foot ulcer Current visit: No Status: Acute Assessment: #1 diabetic foot ulcer Reyna grade 2 without purulence cellulitis lymphangitis #2 multiple comorbidities as outlined in history Plan: #1 orders for local wound care #2 agree with present antibiotic therapy #3 will likely need a diabetic cast boot for the right foot #4 patient has custom inlays and shoes pending this coming Monday #5 we will follow during his hospitalization and closely post discharge Qualifiers: Laterality: left Non-pressure ulcer stage: with fat layer exposed Qualified Code(s): L97.522 - Non-pressure chronic ulcer of other part of left foot with fat layer exposed History of Present Illness Chief complaint: Diabetic foot ulcer left. Blistering superficial ulcer right foot HPI: Ms. Anthony Cook is a 55 year old female , who is seen by me approximately 5 days ago in clinic at which time she had a ongoing ulceration on the plantar aspect of her left foot. The wound was gently debrided of all nonviable tissue it was full-thickness at that time with no evidence of cellulitis lymphangitis tunneling sinus tract or undermining. No clinical evidence of infection. Regardless the wound was gently debrided irrigated properly with saline and cultures were taken for surveillance purposes. The patient was placed on empiric antibiotics because of her diabetes of unknown control and the resistance of the wound to heal. 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 Patient had no edema of either foot/leg that time. Patient was continue local wound care daily. She now presents with likely sepsis significant edema of the right lower extremity that presented over the last several days with significant edema which in turn likely cause the blistering on the dorsal aspect of her right foot. Left foot is unchanged. Past Med Surg Social Fam HX - Past Medical History Medical history: diabetes, GERD, hyperlipidemia Psychiatric history: anxiety - Past Surgical History Surgical History: cholecystectomy - Social History Smoking Status: Never smoker Smokeless Tobacco Status: No Alcohol use: none Drug use: unknown - Family History Mother Living Status: Age at : 71 Cause of : dementia Hx Family Cardiac Disorders: Yes Hx Family Respiratory Disorders: No Hx Family Cancer: Yes Hx Family GI Disorders: No Hx Family Genitourinary Disorders: No Hx Family Endocrine Disorder: No Hx Family Musculoskeletal Disorders: No Hx Family Neuromuscular Disorders: No Hx Family Neurologic Disorders: No Hx Family HEENT Disorders: No Hx Family Autoimmune Disorders: No Hx Family Reproductive Disorders: No Hx Family Psychosocial Disorders: No Hx Family Medical Disorders: Yes Father Living Status: Hx Family Endocrine Disorder: Yes Medications and Allergies Insulin ASPART [NovoLOG] 20 - 45 unit SQ TIDWM 10/15/14 [History] Medroxyprogesterone Acetate [Depo-Provera] 150 mg IJ [id number] 10/15/14 [History] Sertraline [Zoloft] 100 mg PO DAILY 10/15/14 [History] Doxycycline Hyclate [Vibramycin] 100 mg PO BID 06/19/16 [History] Furosemide [Lasix] 20 mg PO DAILY 06/19/16 [History] Omeprazole [PriLOSEC] 20 mg PO DAILY 06/19/16 [History] Oxycodone HCl/Acetaminophen [Percocet 5-325 mg Tablet] 1 each PO Q8H PRN [History] Allergies No Known Allergies Allergy (Verified 06/18/16 14:55) All Systems Reviewed: A 10-system review of systems was performed and is negative for pertinent findings except as documented above in the HPI. Physical Exam - Constitutional Vitals: Temp Pulse Resp BP Pulse Ox 98.4 F 94 16 92/53 91 06/19/16 16:01 06/19/16 16:01 06/19/16 16:01 06/19/16 16:01 06/19/16 16:01 - Expanded Lower Extremities Exam Neuro vascular tendon exam: Present: abnormal 2-point discrimination, decreased fine/light touch, sensory deficit - Skin Additional comments: We appreciate to large bulla on the dorsal/lateral, spect of her right foot and the, gross edema of the right lower extremity from the base of the toes to the tibial tubercle. Appreciate cellulitis of the right lower extremity as well. We have an ulceration of the plantar aspect of left first metatarsophalangeal joint measuring approximately 1.8 cm x 1.8 cm x 0.4 cm. Again no evidence of sinus tract, tunneling, or undermining. There is no evidence of odor fluctuance necrosis or ascending cellulitis or lymphangitis of the left foot. - Ankle & Foot Exam: Vascular exam pedal pulses are palpable left foot because of lack of edema. Pulses of the right foot are not really palpable secondary to the gross edema. Results - Labs Result Diagrams: 06/19/16 03:33 06/19/16 03:33 Labs: Abnormal lab results Hgb 9.6 g/dL (11.5-15.4) L 06/19/16 03:33 Hct 31.8 % (35.3-44.9) L 06/19/16 03:33 MCV 78.9 fL (83.0-100.0) L 06/19/16 03:33 MCH 23.8 pg (28.0-33.3) L 06/19/16 03:33 MCHC 30.2 g/dL (31.6-35.5) L 06/19/16 03:33 RDW 16.2 % (11.5-14.5) H 06/19/16 03:33 Band Neutrophils % 23.6 % (0-4) H 06/19/16 03:33 Metamyelocytes % 2.0 % (0) H 06/18/16 15:47 Nucleated RBCs/100 WBC 0.2 /100 WBC (0) H 06/19/16 03:33 Reactive Lymphocytes Present (Not Present) A 06/19/16 03:33 Polychromasia 1+ (Not Present) A 06/18/16 15:47 PT 16.2 Seconds (9.4-12.1) H 06/18/16 21:00 APTT 23.5 Seconds (26.0-36.0) L 06/18/16 21:00 D-Dimer 6782 ng/mLFEU (0-500) H 06/18/16 15:47 VBG pH 7.45 pH Units (7.32-7.42) H 06/18/16 17:53 VBG pCO2 33 mmHg (41-51) L 06/18/16 17:53 VBG pO2 89 mmHg (25-40) H 06/18/16 17:53 Sodium 132 mEq/L (136-145) L 06/19/16 03:33 Glucose 237 mg/dL (70-99) H 06/19/16 03:33 Hemoglobin A1c 12.6 % (-5.6) H 06/18/16 21:00 Calcium 8.4 mg/dL (8.6-10.8) L 06/19/16 03:33 Direct Bilirubin 0.6 mg/dL (0.0-0.5) H 06/18/16 15:47 B-Natriuretic Peptide 193 pg/mL (0-100) H 06/18/16 15:47 Serum Total Protein 5.4 g/dL (6.0-8.3) L 06/19/16 03:33 Albumin 1.9 g/dL (3.5-5.0) L 06/19/16 03:33 Albumin/Globulin Ratio 0.5 (1.1-2.2) L 06/19/16 03:33 Triglycerides 274 mg/dL (< 150) H 06/19/16 03:33 VLDL Cholesterol, Calc 55 mg/dL (< 31) H 06/19/16 03:33 HDL Cholesterol 11 mg/dL (40-59) L 06/19/16 03:33 Cholesterol/HDL Ratio 13.5 (0-4.9) H 06/19/16 03:33 Beta-Hydroxybutyric Acd > 2.00 mmol/L (0.02-0.27) H 06/18/16 15:47 Urine Clarity Cloudy (Clear) A 06/18/16 16:53 Ur Specific [place] > 1.030 (1.010-1.025) H 06/18/16 16:53 Urine Protein 30 mg/dL (Neg-Trace) H 06/18/16 16:53 Urine Glucose (UA) >=1000 mg/dL (Normal) H 06/18/16 16:53 Urine Ketones 40 mg/dL (Negative) H 06/18/16 16:53 Urine Blood Trace (Negative) H 06/18/16 16:53 Urine Bilirubin Moderate (Negative) H 06/18/16 16:53 Urine Microscopic WBC 15-30 per hpf (0-3) H 06/18/16 16:53 Ur Squamous Epith Cells Many per lpf (None-Few) H 06/18/16 16:53 Urine Bacteria Many per hpf (None-Few) H 06/18/16 16:53 Ur Culture Indicated? YES (NO) A 06/18/16 16:53 H & H 06/19/16 Range/Units 03:33 Hgb 9.6 L (11.5-15.4) g/dL Hct 31.8 L (35.3-44.9) % All other labs normal. Consult Discharge Plan - Plan Referrals: Almas Ac DO [Primary Care Provider] -
[2016-06-20] MEDS: Piperacillin/Tazobactam 3.375 GM in D5% in Water (Mini-Bag+) 100 ML IVPB SCH ×4 (00:18→23:32)
[2016-06-20] MEDS: *HR* Heparin 5,000 UNIT/ML VIAL SQ SCH ×3 (05:43→21:43)
[2016-06-20] MEDS: *HR* OxyCODONE/APAP 5/325 TABLET PO PRN ×4 (05:49→23:31)
[2016-06-20 05:52] LABS: Hematocrit 30.5 % (35.3-44.9); Hemoglobin 9.4 g/dL (11.5-15.4); Mean Corpuscular HGB Conc 30.8 g/dL (31.6-35.5); Mean Corpuscular Hemoglobin 24.3 pg (28.0-33.3); Mean Corpuscular Volume 78.8 fL (83.0-100.0); Mean Platelet Volume 10.6 fL (9.4-12.4); Platelet Count 141 K/mcL (140-400); Red Blood Count 3.87 M/mcL (3.82-4.97); Red Cell Distribution Width 16.4 % (11.5-14.5)
[2016-06-20 06:22] LABS: Lymphocytes # 1.3 K/mcL (0.6-4.6); Monocytes # 0.9 K/mcL (0.0-1.3); Neutrophils # 8.6 K/mcL (1.6-8.9); Platelet Estimate Normal (Normal)
[2016-06-20] MEDS: Insulin LISPRO 300 UNITS/3 ML VIAL SQ SCH ×4 (07:48→21:43)
[2016-06-20] MEDS: Vancomycin 1,250 MG in D5% in Water 250 ML IVPB SCH ×2 (08:05→19:28)
[2016-06-20] MEDS: Insulin DETEMIR 100 UNIT/ML X5UNITS SQ SCH (09:03)
--- NOTE | 2016-06-20 09:15 | Electrocardiograph Report ---
[address] [place], [place] [address] Test Date: 2016-06-18 Pat Name: Maggie Cook Department: 102 Room: 2A22 Gender: F Tin Assorter: : 1960 Requested By: Wes Madera Order Number: [id number] Reading MD: Satya Katz MD Measurements Intervals [place] Rate: 111 P: 47 CA: 134 QRS: 67 QRSD: 93 T: -19 QT: 325 QTc: 391 Interpretive Statements SINUS TACHYCARDIA Electronically Signed On 06-20-2016 9:13:39 EDT by Satya Katz MD
--- NOTE | 2016-06-20 11:55 | Internal Med Progress Note ---
Date of Encounter: 06/20/16 Time of Encounter: 11:52 - Assessment and plan (1) Exertional dyspnea Current Visit: Yes Status: Acute Assessment and plan: suspected Pneumonia per imaging studies; continue IV antibiotics, blood cultures so far negative; Echocardiogram shows preserved EF, moderate LV diastolic dysfunction; (2) Cellulitis Current Visit: Yes Status: Acute Assessment and plan: right lower extremity secondary to diabetic foot; normal WBC count with persistent bandemia; Podiatry on board- recommend local wound care along with special fit boots to avoid pressure ulcers. Continue IV antibiotics and lower extremity elevation and supportive care; pain control with PO Percocet; Outpatient wound culture grows MSSA and GBS; current wound gram stain shows GPC ; Qualifiers: Site of cellulitis: extremity Site of cellulitis of extremity: lower extremity Laterality: right Qualified Code(s): L03.115 - Cellulitis of right lower limb (3) Sepsis Current Visit: Yes Status: Acute Assessment and plan: bandemia with source of infection; plan as above; Qualifiers: Sepsis type: methicillin susceptible Staphylococcus aureus Qualified Code(s ): A41.01 - Sepsis due to Methicillin susceptible Staphylococcus aureus (4) Diabetic foot ulcer Current Visit: Yes Status: Chronic Qualifiers: Diabetic foot ulcer location: unspecified part of foot Diabetes mellitus type: type 2 Laterality: left Non-pressure ulcer stage: limited to breakdown of skin Qualified Code(s): E11.621 - Type 2 diabetes mellitus with foot ulcer; L97.521 - Non-pressure chronic ulcer of other part of left foot limited to breakdown of skin (5) Microcytic anemia Current Visit: Yes Status: Chronic (6) Hemangioma of liver Current Visit: Yes Status: Chronic (7) Insulin dependent diabetes mellitus Current Visit: Yes Status: Chronic Assessment and plan: noted to have low normal blood sugars with intermittent hyperglycemia; will start low dose basal insulin along with sliding scale insulin; diabetic diet; JbA1C is elevated s/o- uncontrolled DM; manager parking consult appreciated; - Subjective Interval history: Feels a lot better today. Improving pain in right foot. Seen by podiatry, on local wound care right now; - Constitutional Vitals: Temp Pulse Resp BP Pulse Ox 97.8 F 73 16 96/58 92 06/20/16 11:37 06/20/16 11:37 06/20/16 11:37 06/20/16 11:37 06/20/16 11:37 General appearance: Present: cooperative, A&O X 3, answers questions appropriately - Respiratory Respiratory exam: Present: CTAB. Absent: accessory muscle use, rales, rhonchi, wheezes - Cardiovascular Cardiovascular exam: Present: RRR, +S1, +S2. Absent: diastolic murmur, gallop, rubs, systolic murmur - Extremities Exam Extremities exam: Present: pedal edema, warm, radial pulses palpable and symetrical. Absent: calf tenderness, cyanotic Additional comments: Right lower extremity-improvement in diffuse edema and erythema but persistent warmth and some tenderness in right leg and foot. Feeble distal pedal pulses. Bulla over dorsal foot spontaneously ruptured, bulla on the lateral foot has been drained yesterday with serous sanguineous fluid, nonpurulent. Left foot plantar ulcer is dry with no foul-smelling discharge. Internal Medicine: Result - Labs CBC & Chem 7: 06/26/16 05:12 06/26/16 05:12 Labs: Short CBC 06/20/16 Range/Units 05:37 WBC 10.7 (4.3-11.1) K/mcL Hgb 9.4 L (11.5-15.4) g/dL Hct 30.5 L (35.3-44.9) % Plt Count 141 (140-400) K/mcL Neutrophils # 8.6 (1.6-8.9) K/mcL - ABG Interpretation ABG results: PT/INR, D-dimer PT 16.2 Seconds (9.4-12.1) H 06/18/16 21:00 D-Dimer 6782 ng/mLFEU (0-500) H 06/18/16 15:47 Consult Discharge Plan - Plan Referrals: Almas Ac DO [Primary Care Provider] - 06/27/16 3:00 pm (Please follow up as schedule...)
[2016-06-20] MEDS: Furosemide 20 MG TABLET PO SCH (12:11)
[2016-06-20] MEDS ORDERED: *HR* OxyCODONE/APAP 5/325 TABLET PO PRN (13:40)
--- NOTE | 2016-06-20 16:22 | Podiatry Progress Note ---
Date of Encounter: 06/20/16 Time of Encounter: 11:00 - Assessment and Plan (1) Foot ulcer due to secondary DM Current Visit: Yes Status: Acute No evidence of bacterial infection to ulceration of left foot. Continue wound care as ordered. Patient has custom inlays and shoes coming Monday. (2) Skin bulla Current Visit: Yes Status: Acute Continue wound care as ordered. Bracing to fit patient with diabetic cast boot to right foot. Agree with present antibiotic therapy Will continue to follow patient closely and upon discharge. Subjective Interval history: Patient is lying in bed with dressing intact to both feet. Moderate amount of serous drainage observed to dressing of right foot. Patient has custom inlays and shoes coming this Monday. Patient will need a diabetic cast boot for the right foot. No c/o fever, chills, cp, sob. Objective - Vital Signs Vital Signs: Vital Signs Temp Pulse Resp BP Pulse Ox 06/20/16 11:37 97.8 F 73 16 96/58 92 06/20/16 07:45 97.9 F 95 17 93/53 96 06/20/16 04:41 98.3 F 106 16 104/55 93 06/19/16 23:31 98.3 F 98 18 100/59 95 06/19/16 19:56 98.2 F 98 18 99/58 94 Intake and Output 06/20/16 06/20/16 06/20/16 07:59 15:59 23:59 Intake Total 100 / 100 350 / 350 Output Total 500 / 500 Balance 100 / 100 -150 / -150 Intake: IV Fluids 100 / 100 350 / 350 Zosyn 3.375 GM In 100 / 100 100 / 100 Dextrose 5% (Minibag+) 100 ML 100 ML @ 25 mls/hr IVPB Q8HR [facility] Rx#: [id number] Vancocin 1,250 MG In 250 / 250 Dextrose 5% 250 ML @ 166. 667 mls/hr IVPB Q12H [facility] Rx#:[id number] Output: Urine 500 / 500 Other: Weight 79.3 kg Blood Glucose* 71 117 Patient Weight 06/20/16 23:59 Weight 79.3 kg - Exam Exam: General appearance: alert awake oriented X 3. Calm and pleasant, no acute distress.. Vascular: Pedal pulses +1/4 DP/PT left, unable to palpate pulses of right foot secondary to edema, Edema graded at 1+/4 left, 2+/4 right, Skin Temperature warm , No calf pain with manual compression. capillary refill time is immediate to digits. 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 Integument: Two bulla to dorsum of right foot, spontanous rupture to proximal lesion, serous drainage observed to distal lesion with cellulitis. Partial thickness ulceration to the left foot at sub #1 metatarsal head left foot measuring 1.8 cm in length x 1.8 cm in width x 0.4 cm in depth. base of wound with 80% granulation tissue and 20% fibrous tissue, no bone, no odor, no pus, no periwound erytehma, no ascending cellulitis. - Lab Result Diagrams: 06/20/16 05:37 06/19/16 03:33 Labs: Abnormal lab results Hgb 9.4 g/dL (11.5-15.4) L 06/20/16 05:37 Hct 30.5 % (35.3-44.9) L 06/20/16 05:37 MCV 78.8 fL (83.0-100.0) L 06/20/16 05:37 MCH 24.3 pg (28.0-33.3) L 06/20/16 05:37 MCHC 30.8 g/dL (31.6-35.5) L 06/20/16 05:37 RDW 16.4 % (11.5-14.5) H 06/20/16 05:37 Band Neutrophils % 46.0 % (0-4) H 06/20/16 05:37 Metamyelocytes % 2.0 % (0) H 06/18/16 15:47 Nucleated RBCs/100 WBC 0.2 /100 WBC (0) H 06/19/16 03:33 Reactive Lymphocytes Present (Not Present) A 06/19/16 03:33 Polychromasia 1+ (Not Present) A 06/18/16 15:47 PT 16.2 Seconds (9.4-12.1) H 06/18/16 21:00 APTT 23.5 Seconds (26.0-36.0) L 06/18/16 21:00 D-Dimer 6782 ng/mLFEU (0-500) H 06/18/16 15:47 VBG pH 7.45 pH Units (7.32-7.42) H 06/18/16 17:53 VBG pCO2 33 mmHg (41-51) L 06/18/16 17:53 VBG pO2 89 mmHg (25-40) H 06/18/16 17:53 Sodium 132 mEq/L (136-145) L 06/19/16 03:33 Glucose 237 mg/dL (70-99) H 06/19/16 03:33 Hemoglobin A1c 12.6 % (-5.6) H 06/18/16 21:00 Calcium 8.4 mg/dL (8.6-10.8) L 06/19/16 03:33 Direct Bilirubin 0.6 mg/dL (0.0-0.5) H 06/18/16 15:47 B-Natriuretic Peptide 193 pg/mL (0-100) H 06/18/16 15:47 Serum Total Protein 5.4 g/dL (6.0-8.3) L 06/19/16 03:33 Albumin 1.9 g/dL (3.5-5.0) L 06/19/16 03:33 Albumin/Globulin Ratio 0.5 (1.1-2.2) L 06/19/16 03:33 Triglycerides 274 mg/dL (< 150) H 06/19/16 03:33 VLDL Cholesterol, Calc 55 mg/dL (< 31) H 06/19/16 03:33 HDL Cholesterol 11 mg/dL (40-59) L 06/19/16 03:33 Cholesterol/HDL Ratio 13.5 (0-4.9) H 06/19/16 03:33 Beta-Hydroxybutyric Acd > 2.00 mmol/L (0.02-0.27) H 06/18/16 15:47 Urine Clarity Cloudy (Clear) A 06/18/16 16:53 Ur Specific [place] > 1.030 (1.010-1.025) H 06/18/16 16:53 Urine Protein 30 mg/dL (Neg-Trace) H 06/18/16 16:53 Urine Glucose (UA) >=1000 mg/dL (Normal) H 06/18/16 16:53 Urine Ketones 40 mg/dL (Negative) H 06/18/16 16:53 Urine Blood Trace (Negative) H 06/18/16 16:53 Urine Bilirubin Moderate (Negative) H 06/18/16 16:53 Urine Microscopic WBC 15-30 per hpf (0-3) H 06/18/16 16:53 Ur Squamous Epith Cells Many per lpf (None-Few) H 06/18/16 16:53 Urine Bacteria Many per hpf (None-Few) H 06/18/16 16:53 Ur Culture Indicated? YES (NO) A 06/18/16 16:53 Vancomycin Trough 8.4 mcg/mL (10-20) L 06/20/16 05:37 Microbiology, Last 48 Hours 06/19/16 10:30 Wound Culture - Preliminary Left Foot Gram Positive Cocci Consult Discharge Plan - Plan Referrals: Almas Ac DO [Primary Care Provider] - 06/27/16 3:00 pm (Please follow up as schedule...)
[2016-06-20] MEDS ORDERED: Insulin DETEMIR 100 UNIT/ML X5UNITS SQ SCH (21:00)
[2016-06-21 04:42] LABS: Hematocrit 28.3 % (35.3-44.9); Hemoglobin 8.6 g/dL (11.5-15.4); Mean Corpuscular HGB Conc 30.4 g/dL (31.6-35.5); Mean Corpuscular Hemoglobin 23.8 pg (28.0-33.3); Mean Corpuscular Volume 78.4 fL (83.0-100.0); Mean Platelet Volume 10.6 fL (9.4-12.4); Platelet Count 167 K/mcL (140-400); Red Blood Count 3.61 M/mcL (3.82-4.97); Red Cell Distribution Width 16.6 % (11.5-14.5)
[2016-06-21 05:25] LABS: Eosinophils # 0.2 K/mcL (0.0-0.6); Lymphocytes # 1.9 K/mcL (0.6-4.6); Monocytes # 0.5 K/mcL (0.0-1.3); Neutrophils # 9.4 K/mcL (1.6-8.9); Platelet Estimate Normal (Normal)
[2016-06-21] MEDS: Vancomycin 1,250 MG in D5% in Water 250 ML IVPB SCH (06:29)
[2016-06-21] MEDS: *HR* Heparin 5,000 UNIT/ML VIAL SQ SCH ×3 (06:30→22:00)
[2016-06-21] MEDS: Furosemide 20 MG TABLET PO SCH (07:29)
[2016-06-21] MEDS: Insulin LISPRO 300 UNITS/3 ML VIAL SQ SCH ×4 (07:30→20:51)
[2016-06-21] MEDS: Piperacillin/Tazobactam 3.375 GM in D5% in Water (Mini-Bag+) 100 ML IVPB SCH (07:30)
[2016-06-21] MEDS ORDERED: Aminoglycoside Consult 1 EACH MC ONE (09:36)
[2016-06-21] MEDS ORDERED: Insulin DETEMIR 100 UNIT/ML X5UNITS SQ ONE (13:00)
[2016-06-21] MEDS: ceFAZolin 1,000 MG in D5% in Water (Mini-Bag+) 100 ML IVPB SCH ×2 (15:15→23:42)
--- NOTE | 2016-06-21 15:37 | Podiatry Progress Note ---
Date of Encounter: 06/21/16 Time of Encounter: 15:00 - Assessment and Plan (1) Foot ulcer due to secondary DM Current Visit: Yes Status: Acute Ulceration to left foot is healing with 80% granulation tissue to the wound bed. Wound cultures isolated Staph Aureus. No evidence of bacterial infection to ulceration of left foot. Continue wound care as ordered. Patient has custom inlays and shoes coming Monday. (2) Skin bulla Current Visit: Yes Status: Acute Right foot is mottled to the plantar aspect with dusky discoloration to the distal aspect of toe #4 right foot. JULIANA and TCPOs levels ordered. Consulted Vascular and spoke with Dr. Keating. Continue wound care as ordered to right foot. Continue use of diabetic cast boot. Agree with present antibiotic therapy Will continue to follow patient closely and upon discharge. Plan of care discussed with Dr. Lenz and agreeable. Subjective Interval history: Patient is lying in bed with dressing intact to both feet. Moderate amount of serous drainage observed to dressing of right foot. Patient has custom inlays and shoes coming this Monday. Patient was fitted for a diabetic cast boot of the right foot yesterday. Patient states her are feeling better. No c/o fever, chills, cp, overnight. Objective - Vital Signs Vital Signs: Vital Signs Temp Pulse Resp BP Pulse Ox 06/21/16 10:31 98.3 F 90 16 107/61 94 06/21/16 10:24 91 06/21/16 06:31 98.9 F 72 18 153/72 95 06/21/16 03:57 98.6 F 92 18 112/64 92 06/21/16 00:28 97.9 F 95 18 105/60 92 06/20/16 20:35 98.2 F 100 18 111/62 92 Intake and Output 06/20/16 06/21/16 06/21/16 23:59 07:59 15:59 Intake Total 350 / 350 100 / 100 470 / 470 Output Total 300 / 300 Balance 50 / 50 100 / 100 470 / 470 Intake: IV Fluids 350 / 350 100 / 100 350 / 350 Zosyn 3.375 GM In 100 / 100 100 / 100 100 / 100 Dextrose 5% (Minibag+) 100 ML 100 ML @ 25 mls/hr IVPB Q8HR [facility] Rx#: [id number] Vancocin 1,250 MG In 250 / 250 250 / 250 Dextrose 5% 250 ML @ 166. 667 mls/hr IVPB Q12H [facility] Rx#:[id number] Oral 120 / 120 Output: Urine 300 / 300 Other: Meal Breakfast Percent of Meal Consumed 25% Weight 90.322 kg Blood Glucose* 320 347 338 Patient Weight 06/21/16 23:59 Weight 90.322 kg - Exam Exam: General appearance: alert awake oriented X 3. Calm and pleasant, no acute distress.. Vascular: Pedal pulses +1/4 DP/PT left, +1/4 PT of right foot, unable to palpate DP secondary to edema, Edema graded at 1+/4 left, 2+/4 right, Skin Temperature warm, No calf pain with manual compression. capillary refill time is immediate to digits #1 through #5 left foot. Pallor to toes #2 through #4 right foot, mottled skin to plantar aspect of right foot. Dusky discoloration to the distal aspect of toe #4 right foot. Neurologic: Sensation diminished with light touch to both feet Musculoskeletal: Right foot: Stage II Eicholz Charcot arthropathy of the midfoot. Integument: Bulla to dorsum of right foot, spontanous rupture to proximal lesion, serous drainage observed to distal lesion with cellulitis. Partial thickness ulceration to the left foot at sub #1 metatarsal head left foot measuring 1.8 cm in length x 1.8 cm in width x 0.4 cm in depth. base of wound with 80% granulation tissue and 20% fibrous tissue, no bone, no odor, no pus, no periwound erytehma, no ascending cellulitis. Surrounding tissue is macerated. - Lab Result Diagrams: 06/21/16 03:52 06/19/16 03:33 Labs: Abnormal lab results WBC 12.1 K/mcL (4.3-11.1) H 06/21/16 03:52 RBC 3.61 M/mcL (3.82-4.97) L 06/21/16 03:52 Hgb 8.6 g/dL (11.5-15.4) L 06/21/16 03:52 Hct 28.3 % (35.3-44.9) L 06/21/16 03:52 MCV 78.4 fL (83.0-100.0) L 06/21/16 03:52 MCH 23.8 pg (28.0-33.3) L 06/21/16 03:52 MCHC 30.4 g/dL (31.6-35.5) L 06/21/16 03:52 RDW 16.6 % (11.5-14.5) H 06/21/16 03:52 Band Neutrophils % 10.0 % (0-4) H 06/21/16 03:52 Metamyelocytes % 2.0 % (0) H 06/18/16 15:47 Neutrophils # 9.4 K/mcL (1.6-8.9) H 06/21/16 03:52 Nucleated RBCs/100 WBC 0.2 /100 WBC (0) H 06/19/16 03:33 Reactive Lymphocytes Present (Not Present) A 06/19/16 03:33 Polychromasia 1+ (Not Present) A 06/18/16 15:47 PT 16.2 Seconds (9.4-12.1) H 06/18/16 21:00 APTT 23.5 Seconds (26.0-36.0) L 06/18/16 21:00 D-Dimer 6782 ng/mLFEU (0-500) H 06/18/16 15:47 VBG pH 7.45 pH Units (7.32-7.42) H 06/18/16 17:53 VBG pCO2 33 mmHg (41-51) L 06/18/16 17:53 VBG pO2 89 mmHg (25-40) H 06/18/16 17:53 Sodium 132 mEq/L (136-145) L 06/19/16 03:33 Glucose 237 mg/dL (70-99) H 06/19/16 03:33 POC Glucose 320 (58-89) H 06/20/16 20:41 Hemoglobin A1c 12.6 % (-5.6) H 06/18/16 21:00 Calcium 8.4 mg/dL (8.6-10.8) L 06/19/16 03:33 Direct Bilirubin 0.6 mg/dL (0.0-0.5) H 06/18/16 15:47 B-Natriuretic Peptide 193 pg/mL (0-100) H 06/18/16 15:47 Serum Total Protein 5.4 g/dL (6.0-8.3) L 06/19/16 03:33 Albumin 1.9 g/dL (3.5-5.0) L 06/19/16 03:33 Albumin/Globulin Ratio 0.5 (1.1-2.2) L 06/19/16 03:33 Triglycerides 274 mg/dL (< 150) H 06/19/16 03:33 VLDL Cholesterol, Calc 55 mg/dL (< 31) H 06/19/16 03:33 HDL Cholesterol 11 mg/dL (40-59) L 06/19/16 03:33 Cholesterol/HDL Ratio 13.5 (0-4.9) H 06/19/16 03:33 Beta-Hydroxybutyric Acd > 2.00 mmol/L (0.02-0.27) H 06/18/16 15:47 Urine Clarity Cloudy (Clear) A 06/18/16 16:53 Ur Specific [place] > 1.030 (1.010-1.025) H 06/18/16 16:53 Urine Protein 30 mg/dL (Neg-Trace) H 06/18/16 16:53 Urine Glucose (UA) >=1000 mg/dL (Normal) H 06/18/16 16:53 Urine Ketones 40 mg/dL (Negative) H 06/18/16 16:53 Urine Blood Trace (Negative) H 06/18/16 16:53 Urine Bilirubin Moderate (Negative) H 06/18/16 16:53 Urine Microscopic WBC 15-30 per hpf (0-3) H 06/18/16 16:53 Ur Squamous Epith Cells Many per lpf (None-Few) H 06/18/16 16:53 Urine Bacteria Many per hpf (None-Few) H 06/18/16 16:53 Ur Culture Indicated? YES (NO) A 06/18/16 16:53 Vancomycin Trough 8.4 mcg/mL (10-20) L 06/20/16 05:37 Microbiology, Last 48 Hours 06/19/16 10:30 Wound Culture - Final Left Foot Staphylococcus aureus Consult Discharge Plan - Plan Referrals: Almas Ac DO [Primary Care Provider] - 06/27/16 3:00 pm (Please follow up as schedule...)
--- NOTE | 2016-06-21 16:36 | Internal Med Progress Note ---
<AllenKiana Thaisotilio Robison - Last Filed: 06/21/16 17:38> Date of Encounter: 06/21/16 Time of Encounter: 12:45 - Assessment and plan (1) Sepsis Current Visit: Yes Status: Acute Assessment and plan: Patient with foot ulcer which cultured Staph aureus that is sensitive to Anceph UTI with urine culture positive for Klebsiella ozaenae that is pansensitive WBC 12.1 today, increased from 10.7 yesterday Will discontinue Zosyn and Vancomycin today Start Anceph today (day#1) Qualifiers: Sepsis type: methicillin susceptible Staphylococcus aureus Qualified Code(s ): A41.01 - Sepsis due to Methicillin susceptible Staphylococcus aureus (2) Cellulitis Current Visit: Yes Status: Acute Assessment and plan: Plan as above Qualifiers: Qualified Code(s): L03.115 - Cellulitis of right lower limb (3) Foot ulcer due to secondary DM Current Visit: Yes Status: Acute Assessment and plan: Continue wound care instructions per podiatry We appreciate recommendations (4) Microcytic anemia Current Visit: Yes Status: Acute Assessment and plan: Iron profile and ferritin, pending (5) Exertional dyspnea Current Visit: Yes Status: Acute Assessment and plan: ECHO demonstrated LVEF 55-60%, normal LV systolic and diastolic function, normal RV function, normal valvular function, no pulmonary HTN Patient not complaining of dyspnea at this time O2 requirement 2L Continue to monitor (6) Insulin dependent diabetes mellitus Current Visit: Yes Status: Chronic Assessment and plan: Levemir 30u BID low-dose SS ACHS (7) Hemangioma of liver Current Visit: Yes Status: Chronic Assessment and plan: CTA demonstrated partially visualized mass in liver 9.1x15.2cm containing fat, calcium, and soft tissue Small amount of ascites was visualized in upper abdomen (8) Hypomagnesemia Current Visit: Yes Status: Acute Assessment and plan: Repleted Continue to monitor (9) DVT prophylaxis Current Visit: Yes Status: Acute Assessment and plan: Heparin SQ - Time Spent With Patient 25 - 35 minutes (25 minutes including time with patient and coordinating care) - Subjective Interval history: Patient states that foot wound is much better today. She continues to complain of pain, but pain is decreased from initial presentation. Swelling in right foot decreased since initial presentation to hospital. Patient admits abdominal distension, which is a chronic problem for her due to the presence of a liver hemangioma. She denies dyspnea, chest pain, abdominal pain. Patient is afebrile and normotensive. - Constitutional Vitals: Temp Pulse Resp BP Pulse Ox 97.8 F 88 18 122/72 97 06/21/16 16:33 06/21/16 16:33 06/21/16 16:33 06/21/16 16:33 06/21/16 16:33 General appearance: Present: cooperative, A&O X 3, answers questions appropriately - Head Head exam: Present: atraumatic, normocephalic - Eye Eye exam: Present: PERRL, conjuntiva pink, sclera anicteric Pupils: Present: PERRL - Neck Neck exam general surgery: Present: supple, trachea midline. Absent: lymphadenopathy - Respiratory Respiratory exam: Present: CTAB. Absent: accessory muscle use, rales, rhonchi, wheezes - Cardiovascular Cardiovascular exam: Present: RRR, +S1, +S2. Absent: diastolic murmur, gallop, rubs, systolic murmur - GI/Abdominal GI/Abdominal exam: Present: distended, firm, hepatomegaly, normal bowel sounds. Absent: tenderness - Extremities Exam Extremities exam: Present: warm, radial pulses palpable and symetrical. Absent : calf tenderness, cyanotic, pedal edema Additional comments: Right foot clean, dry, and intact dressing in place Left foot with dressing in place Left hand with deformity - Neurological Exam Neurological exam: Present: CN II-XII intact, oriented X3, no focal deficits. Absent: pronater drift, facial droop, speech deficit - Skin Skin exam: Present: dry, intact Internal Medicine: Result - Labs CBC & Chem 7: 06/21/16 03:52 06/19/16 03:33 Labs: Short CBC 06/21/16 Range/Units 03:52 WBC 12.1 H (4.3-11.1) K/mcL Hgb 8.6 L (11.5-15.4) g/dL Hct 28.3 L (35.3-44.9) % Plt Count 167 (140-400) K/mcL Neutrophils # 9.4 H (1.6-8.9) K/mcL - ABG Interpretation ABG results: PT/INR, D-dimer PT 16.2 Seconds (9.4-12.1) H 06/18/16 21:00 D-Dimer 6782 ng/mLFEU (0-500) H 06/18/16 15:47 - Impressions Chest X-Ray 06/18/16 15:19 IMPRESSION: Findings suggestive of mild congestive heart failure. Atelectasis or infiltrate cannot be excluded in the lung bases. Follow up to resolution is suggested. D/ / 06/18/2016 16:21:52 Amaris Hickman MD / shankar Interpreting Provider: Amaris Hickman MD Chest CTA 06/18/16 16:06 IMPRESSION: 1. No evidence of pulmonary embolism. 2. Small bilateral pleural effusions. Patchy bibasilar airspace opacities are present, which are favored to represent compressive atelectasis although a component of pneumonia cannot be entirely excluded radiographically. 3. Coronary atherosclerosis. 4. Partially visualized 9.1 x 15.2 cm mass within the right hepatic lobe, which contains fat, soft tissue, and calcifications. The differential includes hepatic adenoma, teratoma, angiomyolipoma, and hepatocellular carcinoma. A small amount of ascites is seen in the upper abdomen. Further evaluation with liver mass protocol CT is recommended. D/ / 06/18/2016 17:39:54 Diego Romero MD / Albertina Carroll Interpreting Provider: Diego Romero MD Foot X-Ray 06/18/16 17:32 IMPRESSION: 1. Soft tissue ulcer involving the plantar aspect of the foot at the level of the metatarsophalangeal joint. 2. No radiographic evidence for osteomyelitis. D/ / Ruslan Cardenas MD / Ruslan Cardenas MD Interpreting Provider: Ruslan Cardenas MD Consult Discharge Plan - Plan Referrals: Almas Ac DO [Primary Care Provider] - 06/27/16 3:00 pm (Please follow up as schedule...) <Dilshad Kelly - Last Filed: 06/22/16 08:19> Date of Encounter: 06/22/16 - Constitutional Vitals: Temp Pulse Resp BP Pulse Ox 97.7 F 88 18 99/58 96 06/22/16 07:20 06/22/16 07:20 06/22/16 07:20 06/22/16 07:20 06/22/16 07:20 Internal Medicine: Result - Labs CBC & Chem 7: 06/22/16 03:34 06/22/16 03:34 Labs: Short CBC 06/22/16 Range/Units 03:34 WBC 14.3 H (4.3-11.1) K/mcL Hgb 8.6 L (11.5-15.4) g/dL Hct 28.2 L (35.3-44.9) % Plt Count 205 (140-400) K/mcL Neutrophils # 11.7 H (1.6-8.9) K/mcL BMP 06/22/16 03:34 Sodium 133 L Potassium 3.5 Chloride 101 Carbon Dioxide 23 BUN 22 H Creatinine 1.89 H Glucose 141 H Calcium 8.6 - ABG Interpretation ABG results: PT/INR, D-dimer PT 16.2 Seconds (9.4-12.1) H 06/18/16 21:00 D-Dimer 6782 ng/mLFEU (0-500) H 06/18/16 15:47 - Attending Attestation I examined this patient and my medical decision-making was reviewed with the LICENSED BONDSMAN/PA/Advanced Practice Nurse/Resident Physician. I agree with the documented findings, disposition and treatment plan as described except to the extent set forth below. Follow vascular surgery input. BMP and CBC requested.
--- NOTE | 2016-06-21 18:14 | Vascular/Endovasc Consult Note ---
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 Unfortunately the noninvasive testing has not yet been accomplished. I will check back tomorrow once these results are available. I discussed with the patient and her the importance of the vascular status and that further testing may be necessary pending the results of the noninvasive testing. - History of Present Illness Consult date: 06/21/16 Requesting physician: Stone Lenz Consult reason: Ischemic right foot Chief complaint: Patient was admitted for shortness of breath and increasing foot pain History of present illness: Ms. Anthony Cook is a 55 year old female With a long history of diabetes and podiatric concerns. The patient has a known Charcot joint of the right ankle. The patient had been under care by an outside hedis specialist with exacerbation of the right foot symptoms. She eventually transferred her care to Dr. Lenz. She was admitted a few days ago because of significant dyspnea and fevers as well as increasing pain in her feet. The patient denies any previous history of lower extremity arterial disease. She does not recall ever having previous noninvasive vascular testing. She does recall that both her father and her brother had lower extremity vascular disease and that her brother required bilateral lower extremity amputations. In addition the patient has a long history of diabetes and there is a strong history of diabetes in her patient's family. In addition the patient has a left for ulcer which is undergoing treatment though is relatively asymptomatic at this time. Of note the patient has a liver hemangioma. This is being followed every 2 years via the general surgeons at [facility]. At the time of this dictation the noninvasive studies that have been ordered have not yet been performed. 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.) - Social History Smoking Status: Never smoker Smokeless Tobacco Status: No Alcohol use: none Drug use: unknown - Family History Mother Living Status: Age at : 71 Cause of : dementia Hx Family Cardiac Disorders: Yes Hx Family Respiratory Disorders: No Hx Family Cancer: Yes Hx Family GI Disorders: No Hx Family Genitourinary Disorders: No Hx Family Endocrine Disorder: No Hx Family Musculoskeletal Disorders: No Hx Family Neuromuscular Disorders: No Hx Family Neurologic Disorders: No Hx Family HEENT Disorders: No Hx Family Autoimmune Disorders: No Hx Family Reproductive Disorders: No Hx Family Psychosocial Disorders: No Hx Family Medical Disorders: Yes Father Living Status: Hx Family Endocrine Disorder: Yes Medications and Allergies Insulin ASPART [NovoLOG] 20 - 45 unit SQ TIDWM 10/15/14 [History] Medroxyprogesterone Acetate [Depo-Provera] 150 mg IJ [id number] 10/15/14 [History] Sertraline [Zoloft] 100 mg PO DAILY 10/15/14 [History] Doxycycline Hyclate [Vibramycin] 100 mg PO BID 06/19/16 [History] Furosemide [Lasix] 20 mg PO DAILY 06/19/16 [History] Omeprazole [PriLOSEC] 20 mg PO DAILY 06/19/16 [History] Oxycodone HCl/Acetaminophen [Percocet 5-325 mg Tablet] 1 each PO Q8H PRN [History] Allergies No Known Allergies Allergy (Verified 06/18/16 14:55) All Systems Review: A 10-system review of systems was performed and is negative for pertinent findings except as documented above in the HPI. Exam Vital Signs, Last 4 Hours Temp Pulse Resp BP Pulse Ox 06/21/16 16:33 97.8 F 88 18 122/72 97 General: Present: Conversant, No Apparent Distress, Other (The patient is an ill -appearing white female. She has a very protuberant abdomen and muscle wasting of the face and neck. She has a icteric discoloration of her skin.) HEENT: Present: Atraumatic, Trachea midline Neck: Absent: JVD, Left Carotid bruit, Right Carotid bruit, Midline deformity, Tracheal deviation Cardiac: Present: Reg Rate and Rhythm, Normal S1 and S2 Lungs: Present: Normal Breath Sounds Neuro: Present: Alert and responsive Abdomen: Present: Soft, Hepatosplenomegaly, Other (Significant distention of abdomen. There are no abdominal bruits or venous call us over the liver.) Vascular: Present: Pulse, absent (Unable to palpate pulses at the right foot.), Pulse, normal (The patient has normal pulses in the left lower extremity. The patient has a palpable femoral and popliteal pulse on the right.), Color/ Temperature (The right toes are cold to the touch with a purplish waxy appearance involving all 5 toes. There is edema all the right calf. There is increased temperature and tenderness on manipulation of the calf.) Skin: Present: No rashes noted on visualized skin Consult Discharge Plan - Plan Referrals: Almas Ac DO [Primary Care Provider] - 06/27/16 3:00 pm (Please follow up as schedule...)
[2016-06-21] MEDS: Magnesium Oxide 400 MG TABLET PO SCH (20:24)
[2016-06-21] MEDS: *HR* OxyCODONE/APAP 5/325 TABLET PO PRN (20:24)
[2016-06-21] MEDS ORDERED: Saliva Stimulant 100ml BOTTLE PO PRN (20:45)
[2016-06-21] MEDS: Insulin DETEMIR 100 UNIT/ML X5UNITS SQ SCH (20:51)
[2016-06-22 04:51] LABS: Basophils % 0.1 %; Eosinophils # 0.1 K/mcL (0.0-0.6); Hematocrit 28.2 % (35.3-44.9); Hemoglobin 8.6 g/dL (11.5-15.4); Immature Granulocytes % 1.5 % (0-4); Lymphocytes # 1.5 K/mcL (0.6-4.6); Lymphocytes % 10.3 %; Mean Corpuscular HGB Conc 30.5 g/dL (31.6-35.5); Mean Corpuscular Hemoglobin 24.3 pg (28.0-33.3); Mean Corpuscular Volume 79.7 fL (83.0-100.0); Mean Platelet Volume 10.8 fL (9.4-12.4); Monocytes # 0.8 K/mcL (0.0-1.3); Monocytes % 5.7 %; Neutrophils # 11.7 K/mcL (1.6-8.9); Platelet Count 205 K/mcL (140-400); Red Blood Count 3.54 M/mcL (3.82-4.97); Red Cell Distribution Width 16.8 % (11.5-14.5); Segmented Neutrophils % 81.4 %
[2016-06-22 05:31] LABS: Calcium 8.6 mg/dL (8.6-10.8); Magnesium 1.8 mg/dL (1.6-2.6); Potassium 3.5 mEq/L (3.5-4.5)
[2016-06-22] MEDS: *HR* Heparin 5,000 UNIT/ML VIAL SQ SCH ×3 (06:02→23:55)
--- NOTE | 2016-06-22 06:55 | Arterial Study Report ---
LE Arterial Physiologic Study Patient Name:Maggie Miller Order Number:[id number] Procedure Date:06/21/2016 Date:1960ge:55 yrs Gender:Female Lt BP:117 / mmHg Rt.BP:123 / mmHgHeart Rate: Location:[facility] Room #: 2A22 Broadcast Operations Manager:Adriana Prakash Referring MD:Brandon Ramachandran MD professor of radiology:DO Luz Land MD:Heladio Howard MD Primary Indications:Mottled skin to right foot Impressions: The right JULIANA is normal. Right JULIANA 1.06. The left JULIANA is normal. Left JULIANA: 1.12. Recommendations: After imaging the patient returned to their room. Preliminary given to Dr Keating on 06/21/2016 at 18:55. Test completed on 06/21/2016 at 6:30:00 pm. Findings LE Arterial Physiologic Exam: Segmental Pressures: Right: The right posterior tibial pressure is 130 mmHg with an index of 1.06. The right dorsalis pedis pressure is 113 mmHg with an index of 0.92. Left: The left posterior tibial pressure is 138 mmHg with an index of 1.12. The left dorsalis pedis pressure is 133 mmHg with an index of 1.08. PVR: Right: The PVR waveforms are mildly diminished in the right ankle. Left: The PVR waveforms are normal in the left ankle. Prior Study: No prior study available for comparison. Segmental Pressures Side Location Pressure Index Result Right Posterior Tibial 130 1.06 Right Dorsalis Pedis 113 0.92 Left Posterior Tibial 138 1.12 Left Dorsalis Pedis 133 1.08 Ankle Brachial Index Right Systolic Diastolic JULIANA Brachial 123 1.06 Dorsalis Pedis 113 0.92 Posterior Tibial 130 1.06 Left Systolic Diastolic JULIANA Brachial 117 1.12 Dorsalis Pedis 133 1.08 Posterior Tibial 138 1.12 TCPO2 Right Left Proximal Thigh Mid Thigh Above Knee Below Knee Mid Calf Ankle 20 30 Foot 25 36 Updated by Heladio Howard MD on 06/22/2016 6:51:07 AM with Status of Final electronically signed on 06/22/2016 6:52:00 AM with status of Final
--- NOTE | 2016-06-22 06:59 | Arterial Study Report ---
LE Arterial Physiologic Study Patient Name:Maggie Miller Order Number:[id number] Procedure Date:06/21/2016 Date:1960ge:55 yrs Gender:Female Location:[facility] Room #: 2A22 Beef Specialist:Adriana Lewis MD:Brandon Ramachandran MD audio experience expert:DO Luz Land MD:Heladio Howard MD Primary Indications:mottled skin to right foot Impressions: The right lower extremity TCPO2 levels may not be consistent with healing. The left lower extremity TCPO2 levels are consistent with healing. Recommendations: After imaging the patient returned to their room. Vascular preliminary results given to Dr Keating on 06/21/2016 at 19:15. Test completed on 06/21/2016 at 7:10:00 pm. Findings Prior Study: No prior study available for comparison. TCPO2 Right Left Proximal Thigh Mid Thigh Above Knee Below Knee Mid Calf Ankle 20 30 Foot 25 36 Updated by Heladio Howard MD on 06/22/2016 6:53:50 AM with Status of Final electronically signed on 06/22/2016 6:54:23 AM with status of Final
[2016-06-22] MEDS: Insulin LISPRO 300 UNITS/3 ML VIAL SQ SCH ×4 (07:33→22:38)
[2016-06-22] MEDS: *HR* OxyCODONE/APAP 5/325 TABLET PO PRN ×3 (07:44→22:37)
[2016-06-22] MEDS: Magnesium Oxide 400 MG TABLET PO SCH ×2 (07:45→22:36)
[2016-06-22] MEDS: Insulin DETEMIR 100 UNIT/ML X5UNITS SQ SCH ×2 (07:45→22:36)
[2016-06-22] MEDS: Furosemide 20 MG TABLET PO SCH (07:45)
[2016-06-22] MEDS: ceFAZolin 1,000 MG in D5% in Water (Mini-Bag+) 100 ML IVPB SCH ×2 (07:45→17:32)
--- NOTE | 2016-06-22 08:38 | Vascular/Endovas Progress Note ---
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 Unfortunately the noninvasive testing has not yet been accomplished. I will check back tomorrow once these results are available. I discussed with the patient and her the importance of the vascular status and that further testing may be necessary pending the results of the noninvasive testing. Patient's physical status has not changed overnight. Therefore despite the noninvasive results which do not correlate with the patient's physical exam I will obtain a CT angiogram . - Subjective Interval history: The patient is a 55-year-old white female who was seen in consultation last night for color and skin and temperature changes to right foot. Patient has history of Charcot joint. Noninvasive testing was performed yesterday after my visit with the patient. This shows relatively normal ankle-brachial index in moderately diminished TC PO2 on the right. However this does not correlate with the physical findings. Vital Signs, Last 4 Hours Temp Pulse Resp BP Pulse Ox 06/22/16 07:20 97.7 F 88 18 99/58 96 06/22/16 04:53 98.2 F 89 18 108/56 97 - Physical Examination General: Present: Conversant, No Apparent Distress Abdomen: Present: Hepatosplenomegaly Skin: Present: Other (Right forefoot remains mottled and discolored and cool to cold. It demonstrates a significant difference in regards to color and temperature compared to the left foot.) Results 06/22/16 03:34 06/22/16 03:34 Lab Results, Last 24 hours 06/22/16 06/22/16 03:34 03:34 WBC 14.3 H Hgb 8.6 L Hct 28.2 L Plt Count 205 Sodium 133 L Potassium 3.5 Chloride 101 Carbon Dioxide 23 BUN 22 H Creatinine 1.89 H Glucose 141 H Calcium 8.6 Magnesium 1.8 - Imaging / Other Tests Non Invasive Vascular Testing: report reviewed Consult Discharge Plan - Plan Referrals: Almas Ac DO [Primary Care Provider] - 06/27/16 3:00 pm (Please follow up as schedule...)
[2016-06-22] MEDS: *HR* Acetylcysteine 20% 600 MG/3 ML ORAL SYRINGE PO SCH ×2 (09:44→22:37)
[2016-06-22] MEDS: 0.9 % Sodium Chloride 1,000 ML IVC SCH (11:38)
--- NOTE | 2016-06-22 12:17 | Podiatry Progress Note ---
Date of Encounter: 06/22/16 Time of Encounter: 11:30 - Assessment and Plan (1) Foot ulcer due to secondary DM Current Visit: Yes Status: Acute Ulceration to left foot is healing with 80% granulation tissue to the wound bed. WBC increased to 14.3, a febrile, will order MRI of left foot with out contrast for chronic ulceration. Wound cultures isolated Staph Aureus. No evidence of bacterial infection to ulceration of left foot. Continue wound care as ordered. Patient has custom inlays and shoes coming Monday. (2) Skin bulla Current Visit: Yes Status: Acute Right foot is mottled to the plantar aspect with dusky discoloration to the distal aspect of toe #4 right foot. Increased swelling noted today with fluctuance to the midfoot, concern for collectible fluid/ abscess. WBC increased to 14.3. MRI of the right foot and ankle ordered today. JULIANA and TCPO2 levels completed, ABIs were with in normal limits. TCPO2 level was moderately diminished on the right. Dr. Keating following patient. Patient just returned from CTA of the abdomen, pelvis and BLE. Continue wound care as ordered to right foot. Agree with present antibiotic therapy Will continue to follow patient closely and upon discharge. Plan of care discussed with Dr. Lenz and agreeable. Subjective Interval history: Patient is lying in bed with dressing intact to both feet. Moderate amount of serous drainage observed to dressing of right foot. Vascular was consulted yesterday due to discoloration of toes and mottled skin to the plantar aspect of the right foot. Patient was evaluated by Dr. Keating last night and this morning. Patient just returned from CT. Patient will be scheduled for an angiogram with Dr. Keating. Patient states her feet feeling better today. No c/ o fever, chills, cp, overnight. Objective - Vital Signs Vital Signs: Vital Signs Temp Pulse Resp BP Pulse Ox 06/22/16 11:33 97.9 F 88 17 99/57 96 06/22/16 07:20 97.7 F 88 18 99/58 96 06/22/16 04:53 98.2 F 89 18 108/56 97 06/22/16 00:51 97.9 F 89 19 101/56 97 06/21/16 20:54 97.9 F 90 18 112/66 96 06/21/16 16:33 97.8 F 88 18 122/72 97 Intake and Output 06/21/16 06/22/16 06/22/16 23:59 07:59 15:59 Intake Total 220 / 220 100 / 100 100 / 100 Output Total 150 / 150 800 / 800 Balance 70 / 70 -700 / -700 100 / 100 Intake: IV Fluids 100 / 100 100 / 100 100 / 100 Ancef 1,000 MG In 100 / 100 100 / 100 100 / 100 Dextrose 5% (Minibag+) 100 ML 100 ML @ 200 mls/ hr IVPB Q8HR [facility] Rx#: [id number] Oral 120 / 120 Output: Urine 150 / 150 800 / 800 Other: Meal Dinner Breakfast Percent of Meal Consumed 10% 0% Stool Size Moderate Stool Consistency loose Stool Color Brown # Voids 1 # Bowel Movements 1 Weight 90.41 kg Blood Glucose* 163 109 108 Patient Weight 06/22/16 23:59 Weight 90.41 kg - Exam Exam: General appearance: alert awake oriented X 3. Calm and pleasant, no acute distress.. Vascular: Pedal pulses +1/4 DP/PT left, +1/4 PT of right foot, unable to palpate DP secondary to edema, Edema graded at 1+/4 left, 2+/4 right, Skin Temperature warm, No calf pain with manual compression. capillary refill time is immediate to digits #1 through #5 left foot. Pallor to toes #2 through #4 right foot, mottled skin to plantar aspect of right foot. Dusky discoloration to the distal aspect of toe #4 right foot. Neurologic: Sensation diminished with light touch to both feet Musculoskeletal: Right foot: Stage II Eicholz Charcot arthropathy of the midfoot. Integument: Bulla to dorsum of right foot, spontanous rupture to proximal lesion, serous drainage observed to distal lesion with cellulitis. Right foot is gobally erythemtous and edematous. Fluctuance to dorsal medial aspect of right foot extending to the plantar aspect with a white lesion to the plantar aspect concerning for an abscess. Ascending cellulitis to RLE. Partial thickness ulceration to the left foot at sub #1 metatarsal head left foot measuring 1.8 cm in length x 1.8 cm in width x 0.4 cm in depth. base of wound with 80% granulation tissue and 20% fibrous tissue, no bone, no odor, no pus, no periwound erytehma, no ascending cellulitis. Surrounding tissue is macerated. - Lab Result Diagrams: 06/22/16 03:34 06/22/16 03:34 Labs: Abnormal lab results WBC 14.3 K/mcL (4.3-11.1) H 06/22/16 03:34 RBC 3.54 M/mcL (3.82-4.97) L 06/22/16 03:34 Hgb 8.6 g/dL (11.5-15.4) L 06/22/16 03:34 Hct 28.2 % (35.3-44.9) L 06/22/16 03:34 MCV 79.7 fL (83.0-100.0) L 06/22/16 03:34 MCH 24.3 pg (28.0-33.3) L 06/22/16 03:34 MCHC 30.5 g/dL (31.6-35.5) L 06/22/16 03:34 RDW 16.8 % (11.5-14.5) H 06/22/16 03:34 Band Neutrophils % 10.0 % (0-4) H 06/21/16 03:52 Metamyelocytes % 2.0 % (0) H 06/18/16 15:47 Neutrophils # 11.7 K/mcL (1.6-8.9) H 06/22/16 03:34 Nucleated RBCs/100 WBC 0.2 /100 WBC (0) H 06/19/16 03:33 Reactive Lymphocytes Present (Not Present) A 06/19/16 03:33 Polychromasia 1+ (Not Present) A 06/18/16 15:47 PT 16.2 Seconds (9.4-12.1) H 06/18/16 21:00 APTT 23.5 Seconds (26.0-36.0) L 06/18/16 21:00 D-Dimer 6782 ng/mLFEU (0-500) H 06/18/16 15:47 VBG pH 7.45 pH Units (7.32-7.42) H 06/18/16 17:53 VBG pCO2 33 mmHg (41-51) L 06/18/16 17:53 VBG pO2 89 mmHg (25-40) H 06/18/16 17:53 Sodium 133 mEq/L (136-145) L 06/22/16 03:34 BUN 22 mg/dL (7-20) H 06/22/16 03:34 Creatinine 1.89 mg/dL (0.57-1.11) H 06/22/16 03:34 Est GFR ( Amer) 34 (> 60) L 06/22/16 03:34 Est GFR (Non-Af Amer) 28 (> 60) L 06/22/16 03:34 Glucose 141 mg/dL (70-99) H 06/22/16 03:34 POC Glucose 108 (58-89) H 06/22/16 11:32 Hemoglobin A1c 12.6 % (-5.6) H 06/18/16 21:00 Iron 9 mcg/dL (50-170) L 06/22/16 03:34 % Saturation 6 % (15-50) L 06/22/16 03:34 Transferrin 111 mg/dL (180-382) L 06/22/16 03:34 Ferritin 1620 ng/ml (5-204) H 06/22/16 03:34 Direct Bilirubin 0.6 mg/dL (0.0-0.5) H 06/18/16 15:47 B-Natriuretic Peptide 193 pg/mL (0-100) H 06/18/16 15:47 Serum Total Protein 5.4 g/dL (6.0-8.3) L 06/19/16 03:33 Albumin 1.9 g/dL (3.5-5.0) L 06/19/16 03:33 Albumin/Globulin Ratio 0.5 (1.1-2.2) L 06/19/16 03:33 Triglycerides 274 mg/dL (< 150) H 06/19/16 03:33 VLDL Cholesterol, Calc 55 mg/dL (< 31) H 06/19/16 03:33 HDL Cholesterol 11 mg/dL (40-59) L 06/19/16 03:33 Cholesterol/HDL Ratio 13.5 (0-4.9) H 06/19/16 03:33 Beta-Hydroxybutyric Acd > 2.00 mmol/L (0.02-0.27) H 06/18/16 15:47 Urine Clarity Cloudy (Clear) A 06/18/16 16:53 Ur Specific [place] > 1.030 (1.010-1.025) H 06/18/16 16:53 Urine Protein 30 mg/dL (Neg-Trace) H 06/18/16 16:53 Urine Glucose (UA) >=1000 mg/dL (Normal) H 06/18/16 16:53 Urine Ketones 40 mg/dL (Negative) H 06/18/16 16:53 Urine Blood Trace (Negative) H 06/18/16 16:53 Urine Bilirubin Moderate (Negative) H 06/18/16 16:53 Urine Microscopic WBC 15-30 per hpf (0-3) H 06/18/16 16:53 Ur Squamous Epith Cells Many per lpf (None-Few) H 06/18/16 16:53 Urine Bacteria Many per hpf (None-Few) H 06/18/16 16:53 Ur Culture Indicated? YES (NO) A 06/18/16 16:53 Vancomycin Trough 8.4 mcg/mL (10-20) L 06/20/16 05:37 Microbiology, Last 48 Hours 06/19/16 10:30 Wound Culture - Final Left Foot Staphylococcus aureus Consult Discharge Plan - Plan Referrals: Almas Ac DO [Primary Care Provider] - 06/27/16 3:00 pm (Please follow up as schedule...)
--- NOTE | 2016-06-22 16:12 | Internal Med Progress Note ---
<AllenKiana Hernandezotilio Robison - Last Filed: 06/22/16 16:10> Date of Encounter: 06/22/16 Time of Encounter: 14:30 - Assessment and plan (1) Sepsis Current Visit: Yes Status: Acute Assessment and plan: Patient with foot ulcer which cultured Staph aureus that is sensitive to Anceph UTI with urine culture positive for Klebsiella ozaenae that is pansensitive WBC 14.3 today, increased from 12.1 yesterday Continue Anceph today (day#2) Patient being followed by podiatry for the bilateral wounds, we appreciate recommendations MRI right foot and ankle, pending Patient being followed by vascular surgery, we appreciate recommendations JULIANA relatively normal Diminished TC PO2 on right foot Will plan to discharge home with oral antibiotics Qualifiers: Sepsis type: methicillin susceptible Staphylococcus aureus Qualified Code(s ): A41.01 - Sepsis due to Methicillin susceptible Staphylococcus aureus (2) Cellulitis Current Visit: Yes Status: Acute Assessment and plan: Plan as above Qualifiers: Qualified Code(s): L03.115 - Cellulitis of right lower limb (3) Foot ulcer due to secondary DM Current Visit: Yes Status: Acute Assessment and plan: Continue wound care instructions per podiatry We appreciate recommendations (4) Microcytic anemia Current Visit: Yes Status: Acute Assessment and plan: Iron, percent saturation, and transferrin low Ferritin high, however may be elevated in the setting of sepsis due to diabetic ulcer Polychromasia present High RDW These studies are suggestive of anemia of chronic disease (5) Exertional dyspnea Current Visit: Yes Status: Acute Assessment and plan: ECHO demonstrated LVEF 55-60%, normal LV systolic and diastolic function, normal RV function, normal valvular function, no pulmonary HTN Patient not complaining of dyspnea at this time O2 requirement 2L Continue to monitor (6) Insulin dependent diabetes mellitus Current Visit: Yes Status: Chronic Assessment and plan: Levemir 30u BID low-dose SS ACHS (7) Hemangioma of liver Current Visit: Yes Status: Chronic Assessment and plan: CTA demonstrated partially visualized mass in liver 9.1x15.2cm containing fat, calcium, and soft tissue CTA abdomen demonstrated ascites Patient states that she follows with Dr. Ch at [facility] and has repeat imaging every 2 years to monitor (8) Hypomagnesemia Current Visit: Yes Status: Acute Assessment and plan: Repleted Continue to monitor (9) DVT prophylaxis Current Visit: Yes Status: Acute Assessment and plan: Heparin SQ - Subjective Interval history: Patient states that right foot wound is much better today. She continues to complain of right foot pain rated 7/10, but pain is decreased from initial presentation. Swelling in right foot/leg continues to improve. - Constitutional Vitals: Temp Pulse Resp BP Pulse Ox 97.9 F 88 17 99/57 96 06/22/16 11:33 06/22/16 11:33 06/22/16 11:33 06/22/16 11:33 06/22/16 11:33 General appearance: Present: cooperative, A&O X 3, answers questions appropriately - Head Head exam: Present: atraumatic, normocephalic - Eye Eye exam: Present: PERRL, sclera anicteric Pupils: Present: PERRL - Neck Neck exam general surgery: Present: supple, trachea midline. Absent: lymphadenopathy - Respiratory Respiratory exam: Present: CTAB. Absent: accessory muscle use, rales, rhonchi, wheezes - Cardiovascular Cardiovascular exam: Present: RRR, +S1, +S2. Absent: diastolic murmur, gallop, rubs, systolic murmur - GI/Abdominal GI/Abdominal exam: Present: distended, firm, normal bowel sounds, no peritoneal signs. Absent: tenderness - Extremities Exam Extremities exam: Present: cyanotic (cyanosis present to digits of right foot), pedal edema (2+ pitting edema and erythema to right lower extremity to level of knee increased from yesterday), warm, radial pulses palpable and symetrical. Absent: calf tenderness Additional comments: Right foot clean, dry, and intact dressing in place Left foot with ulcer to plantar surface Left hand with deformity - Neurological Exam Neurological exam: Present: CN II-XII intact, oriented X3, no focal deficits. Absent: pronater drift, facial droop, speech deficit - Skin Skin exam: Present: dry, intact Internal Medicine: Result - Labs CBC & Chem 7: 06/22/16 03:34 06/22/16 03:34 Labs: Short CBC 06/22/16 Range/Units 03:34 WBC 14.3 H (4.3-11.1) K/mcL Hgb 8.6 L (11.5-15.4) g/dL Hct 28.2 L (35.3-44.9) % Plt Count 205 (140-400) K/mcL Neutrophils # 11.7 H (1.6-8.9) K/mcL BMP 06/22/16 03:34 Sodium 133 L Potassium 3.5 Chloride 101 Carbon Dioxide 23 BUN 22 H Creatinine 1.89 H Glucose 141 H Calcium 8.6 - ABG Interpretation ABG results: PT/INR, D-dimer PT 16.2 Seconds (9.4-12.1) H 06/18/16 21:00 D-Dimer 6782 ng/mLFEU (0-500) H 06/18/16 15:47 - Impressions Impressions Aorta w/Runoff CTA 06/22/16 10:30 IMPRESSION: 1. No significant stenosis involving the aortoiliac system. 2. Moderate diffuse atherosclerotic disease involving the superficial femoral and popliteal arteries but no significant stenosis. 3. 2 vessel runoff as discussed above bilaterally. 4. Bilateral pleural effusions with lower lobe atelectasis. 5. Large mixed density mass in the right lobe of the liver with calcifications and fatty elements. Differential diagnosis does include teratoma, hepatocellular carcinoma, adenoma or liposarcoma. I would recommend MRI for further evaluation. 6. Ascites. D/ / Ruslan Cardenas MD / Ruslan Cardenas MD Interpreting Provider: Ruslan Cardenas MD Consult Discharge Plan - Plan Referrals: Almas Ac DO [Primary Care Provider] - 06/27/16 3:00 pm (Please follow up as schedule...) <Dilshad Kelly - Last Filed: 06/22/16 18:20> Date of Encounter: 06/22/16 - Constitutional Vitals: Temp Pulse Resp BP Pulse Ox 98.3 F 95 17 112/66 97 06/22/16 17:35 06/22/16 17:35 06/22/16 17:35 06/22/16 17:35 06/22/16 17:35 Internal Medicine: Result - Labs CBC & Chem 7: 06/22/16 03:34 06/22/16 03:34 Labs: Short CBC 06/22/16 Range/Units 03:34 WBC 14.3 H (4.3-11.1) K/mcL Hgb 8.6 L (11.5-15.4) g/dL Hct 28.2 L (35.3-44.9) % Plt Count 205 (140-400) K/mcL Neutrophils # 11.7 H (1.6-8.9) K/mcL BMP 06/22/16 03:34 Sodium 133 L Potassium 3.5 Chloride 101 Carbon Dioxide 23 BUN 22 H Creatinine 1.89 H Glucose 141 H Calcium 8.6 - ABG Interpretation ABG results: PT/INR, D-dimer PT 16.2 Seconds (9.4-12.1) H 06/18/16 21:00 D-Dimer 6782 ng/mLFEU (0-500) H 06/18/16 15:47 - Impressions Impressions Aorta w/Runoff CTA 06/22/16 10:30 IMPRESSION: 1. No significant stenosis involving the aortoiliac system. 2. Moderate diffuse atherosclerotic disease involving the superficial femoral and popliteal arteries but no significant stenosis. 3. 2 vessel runoff as discussed above bilaterally. 4. Bilateral pleural effusions with lower lobe atelectasis. 5. Large mixed density mass in the right lobe of the liver with calcifications and fatty elements. Differential diagnosis does include teratoma, hepatocellular carcinoma, adenoma or liposarcoma. I would recommend MRI for further evaluation. 6. Ascites. D/ / Ruslan Cradenas MD / Ruslan Cardenas MD Interpreting Provider: Ruslan Cardenas MD Ankle MRI 06/22/16 12:07 IMPRESSION: 1. Severe chronic midfoot destructive changes with widening of the Lisfranc joint space and overall disorganization compatible with Charcot arthropathy. Given the large midfoot joint effusions and clinical history of ulcerations which are not well visualized superimposed osteomyelitis is also suspected. This most likely involves the navicular, cuboid, cuneiform bones, and 2nd through metatarsals. The 1st metatarsal, talar head, and distal calcaneus may also be involved. 2. Plantar midfoot soft tissue fluid collection measuring approximately 2.4 x 1.1 x 3 cm contacting the plantar surface of the cuboid and likely communicating with the large midfoot joint effusions. 3. Fluid collections encasing the 1st through 5th metatarsal shafts most severely affecting the 3rd and 4th metatarsals. 4. Extensive soft tissue edema compatible with cellulitis. Multiple dorsal forefoot skin blisters. No well-defined soft tissue ulceration identified. 5. Chronic destructive changes of the 5th metatarsal head and 5th MTP degenerative changes. This may represent chronic septic arthritis/osteomyelitis. 6. Moderate to severe anterior tibial and extensor digitorum longus tenosynovitis in the midfoot. Mild posterior tibial and peroneal tenosynovitis. D/ / Jam Brunner MD / Jam Brunner MD Interpreting Provider: Jam Brunner MD Foot MRI 06/22/16 12:07 IMPRESSION: 1. Quality of the images degraded by patient motion artifact but the study remains grossly diagnostic. 2. No evidence of osteomyelitis. 3. Soft tissue ulceration plantar to the 1st MTP joint. Forefoot subcutaneous edema compatible cellulitis versus lymphedema. No drainable fluid collection. 4. Mild 1st MTP degenerative changes. D/ / Jam Brunner MD / Jam Brunner MD Interpreting Provider: Jam Brunner MD Foot MRI 06/22/16 12:07 IMPRESSION: 1. Severe chronic midfoot destructive changes with widening of the Lisfranc joint space and overall disorganization compatible with Charcot arthropathy. Given the large midfoot joint effusions and clinical history of ulcerations which are not well visualized superimposed osteomyelitis is also suspected. This most likely involves the navicular, cuboid, cuneiform bones, and 2nd through metatarsals. The 1st metatarsal, talar head, and distal calcaneus may also be involved. 2. Plantar midfoot soft tissue fluid collection measuring approximately 2.4 x 1.1 x 3 cm contacting the plantar surface of the cuboid and likely communicating with the large midfoot joint effusions. 3. Fluid collections encasing the 1st through 5th metatarsal shafts most severely affecting the 3rd and 4th metatarsals. 4. Extensive soft tissue edema compatible with cellulitis. Multiple dorsal forefoot skin blisters. No well-defined soft tissue ulceration identified. 5. Chronic destructive changes of the 5th metatarsal head and 5th MTP degenerative changes. This may represent chronic septic arthritis/osteomyelitis. 6. Moderate to severe anterior tibial and extensor digitorum longus tenosynovitis in the midfoot. Mild posterior tibial and peroneal tenosynovitis. D/ / Jam Brunner MD / Jam Brunner MD Interpreting Provider: Jam Brunner MD - Attending Attestation I examined this patient and my medical decision-making was reviewed with the CUSTOMER EXPERIENCE LEADER/PA/Advanced Practice Nurse/Resident Physician. I agree with the documented findings, disposition and treatment plan as described except to the extent set forth below. Acute kidney injury. Avoid nephrotoxic agents.
[2016-06-23] MEDS: ceFAZolin 1,000 MG in D5% in Water (Mini-Bag+) 100 ML IVPB SCH ×2 (03:41→09:56)
[2016-06-23] MEDS: 0.9 % Sodium Chloride 1,000 ML IVC SCH ×2 (03:42→22:00)
[2016-06-23 05:37] LABS: Hematocrit 29.3 % (35.3-44.9); Hemoglobin 8.7 g/dL (11.5-15.4); Mean Corpuscular HGB Conc 29.7 g/dL (31.6-35.5); Mean Corpuscular Hemoglobin 23.6 pg (28.0-33.3); Mean Corpuscular Volume 79.6 fL (83.0-100.0); Mean Platelet Volume 9.9 fL (9.4-12.4); Monocytes # 1.1 K/mcL (0.0-1.3); Platelet Count 267 K/mcL (140-400); Red Blood Count 3.68 M/mcL (3.82-4.97); Red Cell Distribution Width 16.8 % (11.5-14.5)
[2016-06-23 06:08] LABS: Calcium 8.9 mg/dL (8.6-10.8); Potassium 3.1 mEq/L (3.5-4.5)
[2016-06-23] MEDS: *HR* Heparin 5,000 UNIT/ML VIAL SQ SCH ×3 (06:12→22:02)
[2016-06-23 06:23] LABS: Anisocytosis 1+ (Not Present); Basophils # 0.3 K/mcL (0.0-0.2); Large Platelets Present (Not Present); Lymphocytes # 0.3 K/mcL (0.6-4.6); Microcytosis Present (Not Present); Neutrophils # 11.7 K/mcL (1.6-8.9); Platelet Estimate Normal (Normal); Polychromasia 1+ (Not Present)
[2016-06-23] MEDS: *HR* OxyCODONE/APAP 5/325 TABLET PO PRN ×3 (06:28→22:21)
[2016-06-23] MEDS: Magnesium Oxide 400 MG TABLET PO SCH (09:54)
[2016-06-23] MEDS: Insulin LISPRO 300 UNITS/3 ML VIAL SQ SCH ×3 (09:55→23:19)
[2016-06-23 11:49] LABS: Creatinine,Urine 35 mg/dL; Microalbum/Creatinine Ratio,Ur 80 (0-30); Microalbumin,Urine 28 mg/L
[2016-06-23] MEDS: *HR* Acetylcysteine 20% 600 MG/3 ML ORAL SYRINGE PO SCH ×2 (12:02→22:01)
--- NOTE | 2016-06-23 12:17 | Vascular/[facility] Progress Note ---
Date of Encounter: 06/23/16 Time of Encounter: 08:15 - Assessment and plan (1) PAD (peripheral artery disease) Current Visit: Yes Status: Chronic The patient had a CT angiogram performed yesterday. I reviewed these images and reviewed the results with the patient. They demonstrate mild superficial femoral and popliteal artery disease. The patient has 2 vessel runoff to the legs and ankle. The anatomy of the vessels in the feet are poorly visualized which is common with CT angiograms. The important point hetre is that there is no obvious obstructing, dissecting, or aneurysmal lesion of the right lower extremity. Therefore there is not a surgical approach to be utilized to reverse the ischemia of the right forefoot. 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 I marked the areas of discoloration and ischemia of the forefoot so that any improvement or further deterioration can be observed. I will be out of town until Monday of next week and I will speak with Dr. Lenz about these vascular findings today. The possibility of amputation was discussed with the patient and her sister today. - Subjective Interval history: The patient has had no complaints overnight. She states that she is able to sleep well. - Physical Examination General: Present: Conversant, No Apparent Distress HEENT: Present: Atraumatic Vascular: Present: Color/Temperature (The patient's right forefoot and toes remain cold and mottled. There is minimal capillary refill. Blebs are present on the dorsum of the foot. The right heel and ankle area are warm to hot to the touch with excellent capillary refill. She has a Charcot deformity of the right ankle. The right calf is warm to touch and mildly edematous) Results 06/23/16 05:20 06/23/16 04:43 Lab Results, Last 24 hours 06/23/16 06/23/16 04:43 05:20 WBC 13.3 H Hgb 8.7 L Hct 29.3 L Plt Count 267 Sodium 136 Potassium 3.1 L Chloride 103 Carbon Dioxide 20 BUN 25 H Creatinine 2.15 H Glucose 59 L Calcium 8.9 Magnesium 2.0 Consult Discharge Plan - Plan Referrals: Almas Ac DO [Primary Care Provider] - 06/27/16 3:00 pm (Please follow up as schedule...)
[2016-06-23] MEDS ORDERED: 0.9 % Sodium Chloride 1,000 ML IVC SCH (12:30)
--- NOTE | 2016-06-23 13:28 | Podiatry Progress Note ---
Date of Encounter: 06/23/16 Time of Encounter: 11:30 - Assessment and Plan (1) Foot ulcer due to secondary DM Current Visit: Yes Status: Acute Ulceration to left foot is healing with 80% granulation tissue to the wound bed. WBC increased to 14.3, a febrile, will order MRI of left foot with out contrast for chronic ulceration. Wound cultures isolated Staph Aureus. No evidence of bacterial infection to ulceration of left foot. Continue wound care as ordered. Patient has custom inlays and shoes coming Monday. (2) Skin bulla Current Visit: Yes Status: Acute Regression in clinical appearance of right foot. Right foot is mottled to the plantar aspect with dusky discoloration to toes #1 through #5 and the plantar aspect ascending to the midfoot. Toes #1 through #5 are cool. Increased swelling, new bullous lesions to the dorsum of the right foot. WBC: 13.3 Dr. Lenz evaluated patient and plans to take patient to OR today. MRI of the right foot, ankle and left foot completed yesterday. Dr. Lenz reviewed MRI of both feet and right ankle. Left foot MRI: negative for abscess or osteomyelitis. Right foot MRI: Plantar midfoot soft tissue fluid collection measuring approximately 2.4 x 1.1 x 3 cm contacting the plantar surface of the cuboid and likely communicating with the large midfoot joint effusions. Fluid collections encasing the 1st through 5th metatarsal shafts most severely affecting the 3rd and 4th metatarsals. After Dr. Lenz reviewed imaging, no osteomyelitis. Charcot arthropathy of the right foot. JULIANA and TCPO2 levels completed, ABIs were with in normal limits. TCPO2 level was moderately diminished on the right. Evaluated by Vascular. CT angiogram performed on 06/22/16: Mild superficial femoral and popliteal artery disease. Per Dr. Keating no obvious obstructing, dissecting, or aneurysmal lesion of the right lower extremity. Continue wound care as ordered to right foot. Will continue to follow patient closely and upon discharge. Subjective Interval history: Patient is lying in bed with dressing intact to both feet. Moderate amount of serous drainage observed to dressing of right foot. Vascular was consulted yesterday due to discoloration of toes and mottled skin to the plantar aspect of the right foot. Patient had a CT angiogram that demonstrated mild superficial femoral and popliteal artery disease. Patient states no change in her pain overnight and she states her feet are feeling better. Patient had an MRI of the right ankle, right foot and left foot yesterday. Increased swelling noted today with new bullous lesions to the dorsum of the right foot today. No c/o fever, chills, cp, overnight. Objective - Vital Signs Vital Signs: Vital Signs Temp Pulse Resp BP Pulse Ox 06/23/16 12:17 98.1 F 90 18 149/72 98 06/23/16 07:02 97.5 F L 84 18 102/61 97 06/23/16 04:55 97.9 F 84 18 115/64 97 06/23/16 01:11 97.9 F 85 18 104/57 97 06/22/16 20:12 98.0 F 90 18 121/66 98 06/22/16 17:35 98.3 F 95 17 112/66 97 Intake and Output 06/22/16 06/23/16 06/23/16 23:59 07:59 15:59 Intake Total 370 / 370 1300 / 1300 800 / 800 Output Total 600 / 600 1400 / 1400 Balance -230 / -230 1300 / 1300 -600 / -600 Intake: IV Fluids 100 / 100 1300 / 1300 200 / 200 0.9 % Sodium Chloride 1, 1200 / 1200 000 ML @ 75 mls/hr IVC . [id number] JULIEN Rx#: [id number] Ancef 1,000 MG In 100 / 100 100 / 100 100 / 100 Dextrose 5% (Minibag+) 100 ML 100 ML @ 200 mls/ hr IVPB Q8HR JULIEN Rx#: [id number] Potassium Chloride 10 mEq 100 / 100 /100mL 10 meq In 100 ml @ 100 mls/hr IVPB Q1H JULIEN Rx#:[id number] Oral 270 / 270 600 / 600 Output: Urine 600 / 600 900 / 900 Catheter 500 / 500 Other: # Voids 1 Weight 90.4 kg Blood Glucose* 110 81 75 Patient Weight 06/23/16 23:59 Weight 90.4 kg - Exam Exam: General appearance: alert awake oriented X 3. Calm and pleasant, no acute distress.. Vascular: Pedal pulses +1/4 DP/PT left, +1/4 PT of right foot, unable to palpate DP secondary to edema, Edema graded at 1+/4 left, 3+/4 right, Toes #1 through #5 right are cool and dusky, No calf pain with manual compression. capillary refill time is immediate to digits #1 through #5 left foot. Pallor to toes #1 through #5 right foot, mottled skin to plantar aspect of right foot ascending to midfoot. Neurologic: Sensation diminished with light touch to both feet Musculoskeletal: Right foot: Stage II Eicholz Charcot arthropathy of the midfoot. Integument: Scattered Bulla to dorsum of right foot, spontanous rupture to proximal lesion, serous drainage observed to distal lesion with cellulitis. Right foot is gobally erythemtous and edematous. Fluctuance to dorsal medial aspect of right foot extending to the plantar aspect with a white lesion to the plantar aspect. Ascending cellulitis to RLE. Partial thickness ulceration to the left foot at sub #1 metatarsal head left foot measuring 1.8 cm in length x 1.8 cm in width x 0.4 cm in depth. base of wound with 80% granulation tissue and 20% fibrous tissue, no bone, no odor, no pus, no periwound erytehma, no ascending cellulitis. Surrounding tissue is macerated. - Lab Result Diagrams: 06/23/16 05:20 06/23/16 04:43 Labs: Abnormal lab results WBC 13.3 K/mcL (4.3-11.1) H 06/23/16 05:20 RBC 3.68 M/mcL (3.82-4.97) L 06/23/16 05:20 Hgb 8.7 g/dL (11.5-15.4) L 06/23/16 05:20 Hct 29.3 % (35.3-44.9) L 06/23/16 05:20 MCV 79.6 fL (83.0-100.0) L 06/23/16 05:20 MCH 23.6 pg (28.0-33.3) L 06/23/16 05:20 MCHC 29.7 g/dL (31.6-35.5) L 06/23/16 05:20 RDW 16.8 % (11.5-14.5) H 06/23/16 05:20 Metamyelocytes % 2.0 % (0) H 06/18/16 15:47 Neutrophils # 11.7 K/mcL (1.6-8.9) H 06/23/16 05:20 Lymphocytes # 0.3 K/mcL (0.6-4.6) L 06/23/16 05:20 Basophils # 0.3 K/mcL (0.0-0.2) H 06/23/16 05:20 Nucleated RBCs/100 WBC 0.2 /100 WBC (0) H 06/19/16 03:33 Reactive Lymphocytes Present (Not Present) A 06/19/16 03:33 Large Platelets Present (Not Present) A 06/23/16 05:20 Polychromasia 1+ (Not Present) A 06/23/16 05:20 Anisocytosis 1+ (Not Present) A 06/23/16 05:20 Microcytosis Present (Not Present) A 06/23/16 05:20 PT 16.2 Seconds (9.4-12.1) H 06/18/16 21:00 APTT 23.5 Seconds (26.0-36.0) L 06/18/16 21:00 D-Dimer 6782 ng/mLFEU (0-500) H 06/18/16 15:47 VBG pH 7.45 pH Units (7.32-7.42) H 06/18/16 17:53 VBG pCO2 33 mmHg (41-51) L 06/18/16 17:53 VBG pO2 89 mmHg (25-40) H 06/18/16 17:53 Potassium 3.1 mEq/L (3.5-4.5) L 06/23/16 04:43 BUN 25 mg/dL (7-20) H 06/23/16 04:43 Creatinine 2.15 mg/dL (0.57-1.11) H 06/23/16 04:43 Est GFR ( Amer) 29 (> 60) L 06/23/16 04:43 Est GFR (Non-Af Amer) 24 (> 60) L 06/23/16 04:43 Glucose 59 mg/dL (70-99) L 06/23/16 04:43 POC Glucose 110 (58-89) H 06/22/16 21:24 Hemoglobin A1c 12.6 % (-5.6) H 06/18/16 21:00 Iron 9 mcg/dL (50-170) L 06/22/16 03:34 % Saturation 6 % (15-50) L 06/22/16 03:34 Transferrin 111 mg/dL (180-382) L 06/22/16 03:34 Ferritin 1620 ng/ml (5-204) H 06/22/16 03:34 Direct Bilirubin 0.6 mg/dL (0.0-0.5) H 06/18/16 15:47 B-Natriuretic Peptide 193 pg/mL (0-100) H 06/18/16 15:47 Serum Total Protein 5.4 g/dL (6.0-8.3) L 06/19/16 03:33 Albumin 1.9 g/dL (3.5-5.0) L 06/19/16 03:33 Albumin/Globulin Ratio 0.5 (1.1-2.2) L 06/19/16 03:33 Triglycerides 274 mg/dL (< 150) H 06/19/16 03:33 VLDL Cholesterol, Calc 55 mg/dL (< 31) H 06/19/16 03:33 HDL Cholesterol 11 mg/dL (40-59) L 06/19/16 03:33 Cholesterol/HDL Ratio 13.5 (0-4.9) H 06/19/16 03:33 Beta-Hydroxybutyric Acd > 2.00 mmol/L (0.02-0.27) H 06/18/16 15:47 Urine Clarity Cloudy (Clear) A 06/18/16 16:53 Ur Specific Rawlings > 1.030 (1.010-1.025) H 06/18/16 16:53 Urine Protein 30 mg/dL (Neg-Trace) H 06/18/16 16:53 Urine Glucose (UA) >=1000 mg/dL (Normal) H 06/18/16 16:53 Urine Ketones 40 mg/dL (Negative) H 06/18/16 16:53 Urine Blood Trace (Negative) H 06/18/16 16:53 Urine Bilirubin Moderate (Negative) H 06/18/16 16:53 Urine Microscopic WBC 15-30 per hpf (0-3) H 06/18/16 16:53 Ur Eosinophil Smear 4 % (None Seen) H 06/23/16 11:37 Ur Squamous Epith Cells Many per lpf (None-Few) H 06/18/16 16:53 Urine Bacteria Many per hpf (None-Few) H 06/18/16 16:53 Ur Culture Indicated? YES (NO) A 06/18/16 16:53 Microalb/Creat Ratio 80 (0-30) H 06/23/16 11:37 Vancomycin Trough 8.4 mcg/mL (10-20) L 06/20/16 05:37 Consult Discharge Plan - Plan Referrals: Almas Ac DO [Primary Care Provider] - 06/27/16 3:00 pm (Please follow up as schedule...)
--- NOTE | 2016-06-23 15:29 | Anesthesia Evaluation PreOp ---
Date of Encounter: 06/23/16 Time of Encounter: 15:27 - Past History Planned Operation: I&D R-foot Cardiac History: CHF (mild CHF), HTN (maintained on Lasix), Hyperlipidemia, Other (ECHO - LVEF 55-60% LV nl size, function, moderate LV diastolic dysfx. NO evidence of PulmHTn) Pulmonary History: Denies Any Significant HX MANAGER ASSET History: Other (Anxiety/Depression maintained on Zoloft) Other Medical History: Hepatic (Liver Hemangioma followed C2pluup by [facility]. Denies Hepatitis but does have large abdomen c/w Ascites), Diabetes Type II (Uncontrolled DM, HbA1c = 12.6/avg glucose = 315. Maintained on Insulin), GERD (maintained on Prilosec) Anesthesia History: No Prior Anesthetic Complications, Past Anesthesia (Melani, Amputations L-index & ring fingers) Alcohol Use: none Drug use: unknown Medications and Allergies Insulin ASPART [NovoLOG] 20 - 45 unit SQ TIDWM 10/15/14 [History] Medroxyprogesterone Acetate [Depo-Provera] 150 mg IJ [id number] 10/15/14 [History] Sertraline [Zoloft] 100 mg PO DAILY 10/15/14 [History] Doxycycline Hyclate [Vibramycin] 100 mg PO BID 06/19/16 [History] Furosemide [Lasix] 20 mg PO DAILY 06/19/16 [History] Omeprazole [PriLOSEC] 20 mg PO DAILY 06/19/16 [History] Oxycodone HCl/Acetaminophen [Percocet 5-325 mg Tablet] 1 each PO Q8H PRN [History] Allergies No Known Allergies Allergy (Verified 06/18/16 14:55) - Meds/Allergy Pre-op Review Medications Reviewed: Yes Allergies Reviewed: Yes Beta Blockers on Current Med List: No Anesthesia Results - Labs 06/23/16 05:20 06/23/16 04:43 Laboratory Results WBC 13.3 K/mcL (4.3-11.1) H 06/23/16 05:20 RBC 3.68 M/mcL (3.82-4.97) L 06/23/16 05:20 Hgb 8.7 g/dL (11.5-15.4) L 06/23/16 05:20 Hct 29.3 % (35.3-44.9) L 06/23/16 05:20 MCV 79.6 fL (83.0-100.0) L 06/23/16 05:20 MCH 23.6 pg (28.0-33.3) L 06/23/16 05:20 MCHC 29.7 g/dL (31.6-35.5) L 06/23/16 05:20 RDW 16.8 % (11.5-14.5) H 06/23/16 05:20 Plt Count 267 K/mcL (140-400) 06/23/16 05:20 MPV 9.9 fL (9.4-12.4) 06/23/16 05:20 Immature Gran % 1.5 % (0-4) 06/22/16 03:34 Seg Neutrophils % 86.0 % 06/23/16 05:20 Band Neutrophils % 2.0 % (0-4) 06/23/16 05:20 Lymphocytes % 2.0 % 06/23/16 05:20 Monocytes % 8.0 % 06/23/16 05:20 Eosinophils % 1.0 % 06/22/16 03:34 Basophils % 2.0 % 06/23/16 05:20 Metamyelocytes % 2.0 % (0) H 06/18/16 15:47 Neutrophils # 11.7 K/mcL (1.6-8.9) H 06/23/16 05:20 Lymphocytes # 0.3 K/mcL (0.6-4.6) L 06/23/16 05:20 Monocytes # 1.1 K/mcL (0.0-1.3) 06/23/16 05:20 Eosinophils # 0.1 K/mcL (0.0-0.6) 06/22/16 03:34 Basophils # 0.3 K/mcL (0.0-0.2) H 06/23/16 05:20 Nucleated RBCs/100 WBC 0.2 /100 WBC (0) H 06/19/16 03:33 Reactive Lymphocytes Present (Not Present) A 06/19/16 03:33 Platelet Estimate Normal (Normal) 06/23/16 05:20 Large Platelets Present (Not Present) A 06/23/16 05:20 Polychromasia 1+ (Not Present) A 06/23/16 05:20 Anisocytosis 1+ (Not Present) A 06/23/16 05:20 Microcytosis Present (Not Present) A 06/23/16 05:20 ESR 62 mm/hr (0-15) H 06/23/16 13:48 PT 16.2 Seconds (9.4-12.1) H 06/18/16 21:00 INR 1.5 06/18/16 21:00 APTT 23.5 Seconds (26.0-36.0) L 06/18/16 21:00 D-Dimer 6782 ng/mLFEU (0-500) H 06/18/16 15:47 VBG pH 7.45 pH Units (7.32-7.42) H 06/18/16 17:53 VBG pCO2 33 mmHg (41-51) L 06/18/16 17:53 VBG pO2 89 mmHg (25-40) H 06/18/16 17:53 VBG HCO3 22.9 mEq/L (21-27) 06/18/16 17:53 Sodium 136 mEq/L (136-145) 06/23/16 04:43 Potassium 3.1 mEq/L (3.5-4.5) L 06/23/16 04:43 Chloride 103 mEq/L (98-109) 06/23/16 04:43 Carbon Dioxide 20 mEq/L (19-29) 06/23/16 04:43 BUN 25 mg/dL (7-20) H 06/23/16 04:43 Creatinine 2.15 mg/dL (0.57-1.11) H 06/23/16 04:43 Est GFR ( Amer) 29 (> 60) L 06/23/16 04:43 Est GFR (Non-Af Amer) 24 (> 60) L 06/23/16 04:43 BUN/Creatinine Ratio 12 (6-26) 06/23/16 04:43 Glucose 59 mg/dL (70-99) L 06/23/16 04:43 POC Glucose 110 (58-89) H 06/22/16 21:24 Est Mean Plasma Glucose 315 mg/dl 06/18/16 21:00 Hemoglobin A1c 12.6 % (-5.6) H 06/18/16 21:00 Serum Osmolality 288 mOsm/kg (280-300) 06/23/16 08:46 Calculated Osmolality 284 (280-300) 06/23/16 04:43 Lactic Acid 1.2 mmol/L (0.5-2.2) 06/18/16 21:00 Calcium 8.9 mg/dL (8.6-10.8) 06/23/16 04:43 Magnesium 2.0 mg/dL (1.6-2.6) 06/23/16 04:43 Iron 9 mcg/dL (50-170) L 06/22/16 03:34 % Saturation 6 % (15-50) L 06/22/16 03:34 Transferrin 111 mg/dL (180-382) L 06/22/16 03:34 Ferritin 1620 ng/ml (5-204) H 06/22/16 03:34 Total Bilirubin 0.9 mg/dL (0.2-1.2) 06/19/16 03:33 Direct Bilirubin 0.6 mg/dL (0.0-0.5) H 06/18/16 15:47 Indirect Bilirubin 0.7 mg/dL (0.0-1.2) 06/18/16 15:47 AST 11 Units/L (5-34) 06/19/16 03:33 ALT < 6 Units/L (0-55) 06/19/16 03:33 Alkaline Phosphatase 77 Units/L (38-126) 06/19/16 03:33 Creatine Kinase 14 Units/L (29-168) L 06/23/16 13:48 Troponin I 0.02 ng/mL (0-0.03) 06/19/16 03:33 C-Reactive Protein 184 mg/L (Less than 5) H 06/23/16 13:48 B-Natriuretic Peptide 193 pg/mL (0-100) H 06/18/16 15:47 Serum Total Protein 5.4 g/dL (6.0-8.3) L 06/19/16 03:33 Albumin 1.9 g/dL (3.5-5.0) L 06/19/16 03:33 Globulin 3.5 g/dL (2.4-3.5) 06/19/16 03:33 Albumin/Globulin Ratio 0.5 (1.1-2.2) L 06/19/16 03:33 Triglycerides 274 mg/dL (< 150) H 06/19/16 03:33 Cholesterol 149 mg/dL (< 200) 06/19/16 03:33 LDL Cholesterol, Calc 83 mg/dL (0-99) 06/19/16 03:33 VLDL Cholesterol, Calc 55 mg/dL (< 31) H 06/19/16 03:33 HDL Cholesterol 11 mg/dL (40-59) L 06/19/16 03:33 Cholesterol/HDL Ratio 13.5 (0-4.9) H 06/19/16 03:33 Beta-Hydroxybutyric Acd > 2.00 mmol/L (0.02-0.27) H 06/18/16 15:47 Urine Color Yellow (Yellow) 06/18/16 16:53 Urine Clarity Cloudy (Clear) A 06/18/16 16:53 Urine pH 6.0 pH Units (5.0-8.0) 06/18/16 16:53 Ur Specific [place] > 1.030 (1.010-1.025) H 06/18/16 16:53 Urine Protein 30 mg/dL (Neg-Trace) H 06/18/16 16:53 Urine Glucose (UA) >=1000 mg/dL (Normal) H 06/18/16 16:53 Urine Ketones 40 mg/dL (Negative) H 06/18/16 16:53 Urine Blood Trace (Negative) H 06/18/16 16:53 Urine Nitrite Negative (Negative) 06/18/16 16:53 Urine Bilirubin Moderate (Negative) H 06/18/16 16:53 Urine Urobilinogen Normal mg/dL (Normal) 06/18/16 16:53 Ur Leukocyte Esterase Negative (Negative) 06/18/16 16:53 Urine Microscopic RBC 0-3 per hpf (0-3) 06/18/16 16:53 Urine Microscopic WBC 15-30 per hpf (0-3) H 06/18/16 16:53 Ur Eosinophil Smear 4 % (None Seen) H 06/23/16 11:37 Ur Squamous Epith Cells Many per lpf (None-Few) H 06/18/16 16:53 Urine Bacteria Many per hpf (None-Few) H 06/18/16 16:53 Hyaline Casts None Seen per lpf (None-Few) 06/18/16 16:53 Ur Culture Indicated? YES (NO) A 06/18/16 16:53 Urine Creatinine 35 mg/dL 06/23/16 11:37 Urine Microalbumin 28 mg/L 06/23/16 11:37 Microalb/Creat Ratio 80 (0-30) H 06/23/16 11:37 Vancomycin Trough 8.4 mcg/mL (10-20) L 06/20/16 05:37 Impressions Chest X-Ray 06/18/16 15:19 IMPRESSION: Findings suggestive of mild congestive heart failure. Atelectasis or infiltrate cannot be excluded in the lung bases. Follow up to resolution is suggested. D/ / 06/18/2016 16:21:52 Amaris Hickman MD / shankar Interpreting Provider: Amaris Hickman MD Chest CTA 06/18/16 16:06 IMPRESSION: 1. No evidence of pulmonary embolism. 2. Small bilateral pleural effusions. Patchy bibasilar airspace opacities are present, which are favored to represent compressive atelectasis although a component of pneumonia cannot be entirely excluded radiographically. 3. Coronary atherosclerosis. 4. Partially visualized 9.1 x 15.2 cm mass within the right hepatic lobe, which contains fat, soft tissue, and calcifications. The differential includes hepatic adenoma, teratoma, angiomyolipoma, and hepatocellular carcinoma. A small amount of ascites is seen in the upper abdomen. Further evaluation with liver mass protocol CT is recommended. D/ / 06/18/2016 17:39:54 Diego Romero MD / Albertina Carroll Interpreting Provider: Diego Romero MD Foot X-Ray 06/18/16 17:32 IMPRESSION: 1. Soft tissue ulcer involving the plantar aspect of the foot at the level of the metatarsophalangeal joint. 2. No radiographic evidence for osteomyelitis. D/ / Ruslan Cardenas MD / Ruslan Cardenas MD Interpreting Provider: Ruslan Cardenas MD Aorta w/Runoff CTA 06/22/16 10:30 IMPRESSION: 1. No significant stenosis involving the aortoiliac system. 2. Moderate diffuse atherosclerotic disease involving the superficial femoral and popliteal arteries but no significant stenosis. 3. 2 vessel runoff as discussed above bilaterally. 4. Bilateral pleural effusions with lower lobe atelectasis. 5. Large mixed density mass in the right lobe of the liver with calcifications and fatty elements. Differential diagnosis does include teratoma, hepatocellular carcinoma, adenoma or liposarcoma. I would recommend MRI for further evaluation. 6. Ascites. D/ / Ruslan Cardenas MD / Ruslan Cardenas MD Interpreting Provider: Ruslan Cardenas MD Ankle MRI 06/22/16 12:07 IMPRESSION: 1. Severe chronic midfoot destructive changes with widening of the Lisfranc joint space and overall disorganization compatible with Charcot arthropathy. Given the large midfoot joint effusions and clinical history of ulcerations which are not well visualized superimposed osteomyelitis is also suspected. This most likely involves the navicular, cuboid, cuneiform bones, and 2nd through metatarsals. The 1st metatarsal, talar head, and distal calcaneus may also be involved. 2. Plantar midfoot soft tissue fluid collection measuring approximately 2.4 x 1.1 x 3 cm contacting the plantar surface of the cuboid and likely communicating with the large midfoot joint effusions. 3. Fluid collections encasing the 1st through 5th metatarsal shafts most severely affecting the 3rd and 4th metatarsals. 4. Extensive soft tissue edema compatible with cellulitis. Multiple dorsal forefoot skin blisters. No well-defined soft tissue ulceration identified. 5. Chronic destructive changes of the 5th metatarsal head and 5th MTP degenerative changes. This may represent chronic septic arthritis/osteomyelitis. 6. Moderate to severe anterior tibial and extensor digitorum longus tenosynovitis in the midfoot. Mild posterior tibial and peroneal tenosynovitis. D/ / Jam Brunner MD / Jam Brunner MD Interpreting Provider: Jam Brunner MD Foot MRI 06/22/16 12:07 IMPRESSION: 1. Quality of the images degraded by patient motion artifact but the study remains grossly diagnostic. 2. No evidence of osteomyelitis. 3. Soft tissue ulceration plantar to the 1st MTP joint. Forefoot subcutaneous edema compatible cellulitis versus lymphedema. No drainable fluid collection. 4. Mild 1st MTP degenerative changes. D/ / Jam Brunner MD / Jam Brunner MD Interpreting Provider: Jam Brunner MD - Imaging EKG: image reviewed (111bpm STach) Anesthesia Exam Vital Signs Temp Pulse Resp BP Pulse Ox 06/23/16 12:17 98.1 F 90 18 149/72 98 06/23/16 07:02 97.5 F L 84 18 102/61 97 06/23/16 04:55 97.9 F 84 18 115/64 97 06/23/16 01:11 97.9 F 85 18 104/57 97 06/22/16 20:12 98.0 F 90 18 121/66 98 06/22/16 17:35 98.3 F 95 17 112/66 97 Intake and Output 06/22/16 06/23/16 06/23/16 23:59 07:59 15:59 Intake Total 370 / 370 1300 / 1300 800 / 800 Output Total 600 / 600 1650 / 1650 Balance -230 / -230 1300 / 1300 -850 / -850 Intake: IV Fluids 100 / 100 1300 / 1300 200 / 200 0.9 % Sodium Chloride 1, 1200 / 1200 000 ML @ 75 mls/hr IVC . [id number] JULIEN Rx#: [id number] Ancef 1,000 MG In 100 / 100 100 / 100 100 / 100 Dextrose 5% (Minibag+) 100 ML 100 ML @ 200 mls/ hr IVPB Q8HR JULIEN Rx#: [id number] Potassium Chloride 10 mEq 100 / 100 /100mL 10 meq In 100 ml @ 100 mls/hr IVPB Q1H JULIEN Rx#:[id number] Oral 270 / 270 600 / 600 Output: Urine 600 / 600 1150 / 1150 Catheter 500 / 500 Other: Stool Size Moderate Stool Consistency loose Stool Color Brown # Voids 1 # Bowel Movements 1 Weight 90.4 kg Blood Glucose* 110 81 75 Patient Weight 06/23/16 23:59 Weight 90.4 kg - HEENT Pupil (Motor): Pupils equal, EOMI Mallampati: II Teeth: Poor dentition Oral Opening: Greater than 3 - MANAGER ASSET LOC: Oriented MANAGER ASSET Motor: Normal RUE, Normal LUE, Normal LLE, Normal Face, Deficit RLE MANAGER ASSET Sensory: Normal: RUE, LUE, LLE, Face, Deficit: RLE - Cardiac Rhythm: Regular (+ gallop?) Murmur: None - Pulmonary Breath Sounds: bilateral Clear Respiratory Effort: Symmetrical Anesthesia Assess/Plan ASA Score: 3 (Uncontrolled DM, PVDz, HTN, Chol, CHF, Liver Hemangioma) Modified Cori Scale for Level of Consciousness: Cooperative, oriented, and tranquil Anesthetic Plan: General Monitoring Plan: Standard Monitors Recovery Plan: PACU Anes Supervising Prov Stmt: Pt seen/evaluated, R&B discussed, questions answered and consent obtained. Jean Carlos Mcclure MD
--- NOTE | 2016-06-23 15:32 | Internal Med Progress Note ---
<AllenKiana Thaisotilio Robison - Last Filed: 06/23/16 15:23> Date of Encounter: 06/23/16 Time of Encounter: 11:05 - Assessment and plan (1) Sepsis Current Visit: Yes Status: Acute Assessment and plan: Patient with foot ulcer which cultured Staph aureus that is sensitive to Anceph UTI with urine culture positive for Klebsiella ozaenae that is pansensitive WBC 14.3 today, increased from 12.1 yesterday Continue Anceph today (day#2) Patient being followed by podiatry for the bilateral wounds, we appreciate recommendations MRI right foot and ankle, pending Patient being followed by vascular surgery, we appreciate recommendations JULIANA relatively normal Diminished TC PO2 on right foot Will plan to discharge home with oral antibiotics 06/23/16 WBC 13.3 today with worsening of right foot swelling today concerning for compartment syndrome MRI of right foot suggests osteomyelitis Previously, left foot culture revealed Staph aureus However, right culture was not collected Given progression of disease, we will restart Vanc and Zosyn to expand antibiotic coverage Discontinue Aneph Dr. Lenz plans to take patient to surgery this afternoon for debridement Qualifiers: Sepsis type: methicillin susceptible Staphylococcus aureus Qualified Code(s ): A41.01 - Sepsis due to Methicillin susceptible Staphylococcus aureus (2) Cellulitis Current Visit: Yes Status: Acute Assessment and plan: Plan as above Qualifiers: Qualified Code(s): L03.115 - Cellulitis of right lower limb (3) Foot ulcer due to secondary DM Current Visit: Yes Status: Acute Assessment and plan: Continue wound care instructions per podiatry We appreciate recommendations (4) Microcytic anemia Current Visit: Yes Status: Acute Assessment and plan: Iron, percent saturation, and transferrin low Ferritin high, however may be elevated in the setting of sepsis due to diabetic ulcer Polychromasia present High RDW These studies are suggestive of anemia of chronic disease (5) Exertional dyspnea Current Visit: Yes Status: Acute Assessment and plan: ECHO demonstrated LVEF 55-60%, normal LV systolic and diastolic function, normal RV function, normal valvular function, no pulmonary HTN Patient not complaining of dyspnea at this time O2 requirement 2L Continue to monitor (6) Insulin dependent diabetes mellitus Current Visit: Yes Status: Chronic Assessment and plan: Levemir 30u BID low-dose SS ACHS (7) Hemangioma of liver Current Visit: Yes Status: Chronic Assessment and plan: CTA demonstrated partially visualized mass in liver 9.1x15.2cm containing fat, calcium, and soft tissue CTA abdomen demonstrated ascites Patient states that she follows with Dr. Ch at [facility] and has repeat imaging every 2 years to monitor (8) Hypomagnesemia Current Visit: Yes Status: Acute Assessment and plan: Repleted Continue to monitor (9) DVT prophylaxis Current Visit: Yes Status: Acute Assessment and plan: Heparin SQ - Time Spent With Patient 25 - 35 minutes (25 minutes including time with patient and coordinating care) - Subjective Interval history: Right right foot and leg have increased swelling today. Patient continues to have right foot pain. She is being evaluated by Dr. Lenz for Osteomyelitis. MRI of Right foot demonstrates large midfoot joint effusions and suspected osteomyelitis of navicular, cuboid, cuneiforms, and metatarsals. MRI also demonstrates soft tissue fluid collection in plantar midfoot and soft tissue edema compatible with cellulitis. - Constitutional Vitals: Temp Pulse Resp BP Pulse Ox 98.1 F 90 18 149/72 98 06/23/16 12:17 06/23/16 12:17 06/23/16 12:17 06/23/16 12:06/23/16 12:17 General appearance: Present: cooperative, A&O X 3, answers questions appropriately - Head Head exam: Present: atraumatic, normocephalic - Eye Eye exam: Present: PERRL, conjuntiva pink, sclera anicteric Pupils: Present: PERRL - Neck Neck exam general surgery: Present: supple, trachea midline. Absent: lymphadenopathy - Respiratory Respiratory exam: Present: CTAB. Absent: accessory muscle use, rales, rhonchi, wheezes - Cardiovascular Cardiovascular exam: Present: RRR, +S1, +S2. Absent: diastolic murmur, gallop, rubs, systolic murmur - GI/Abdominal GI/Abdominal exam: Present: distended (grossly distended), no peritoneal signs. Absent: normal bowel sounds (hyperresonant bowel sounds), tenderness - Extremities Exam Extremities exam: Present: cyanotic (Right foot with dusky-blue cast, bullae, erythema, and 2+ pitting edema), joint swelling (R foot), pedal edema (2+ pitting edema to right lower extremity and foot to level of the knee. this is worsened from yesterday. right thigh with trace non-pitting edema from level of knee to thigh. left leg and foot without pitting edema), warm, radial pulses palpable and symetrical. Absent: calf tenderness - Neurological Exam Neurological exam: Present: CN II-XII intact, oriented X3, no focal deficits. Absent: facial droop, speech deficit - Skin Skin exam: Present: dry, intact Internal Medicine: Result - Labs CBC & Chem 7: 06/23/16 05:20 06/23/16 04:43 Labs: Short CBC 06/23/16 Range/Units 05:20 WBC 13.3 H (4.3-11.1) K/mcL Hgb 8.7 L (11.5-15.4) g/dL Hct 29.3 L (35.3-44.9) % Plt Count 267 (140-400) K/mcL Neutrophils # 11.7 H (1.6-8.9) K/mcL BMP 06/23/16 04:43 Sodium 136 Potassium 3.1 L Chloride 103 Carbon Dioxide 20 BUN 25 H Creatinine 2.15 H Glucose 59 L Calcium 8.9 - ABG Interpretation ABG results: PT/INR, D-dimer PT 16.2 Seconds (9.4-12.1) H 06/18/16 21:00 D-Dimer 6782 ng/mLFEU (0-500) H 06/18/16 15:47 - Impressions Impressions Ankle MRI 06/22/16 12:07 IMPRESSION: 1. Severe chronic midfoot destructive changes with widening of the Lisfranc joint space and overall disorganization compatible with Charcot arthropathy. Given the large midfoot joint effusions and clinical history of ulcerations which are not well visualized superimposed osteomyelitis is also suspected. This most likely involves the navicular, cuboid, cuneiform bones, and 2nd through metatarsals. The 1st metatarsal, talar head, and distal calcaneus may also be involved. 2. Plantar midfoot soft tissue fluid collection measuring approximately 2.4 x 1.1 x 3 cm contacting the plantar surface of the cuboid and likely communicating with the large midfoot joint effusions. 3. Fluid collections encasing the 1st through 5th metatarsal shafts most severely affecting the 3rd and 4th metatarsals. 4. Extensive soft tissue edema compatible with cellulitis. Multiple dorsal forefoot skin blisters. No well-defined soft tissue ulceration identified. 5. Chronic destructive changes of the 5th metatarsal head and 5th MTP degenerative changes. This may represent chronic septic arthritis/osteomyelitis. 6. Moderate to severe anterior tibial and extensor digitorum longus tenosynovitis in the midfoot. Mild posterior tibial and peroneal tenosynovitis. D/ / Jam Brunner MD / Jam Brunner MD Interpreting Provider: Jam Brunner MD Foot MRI 06/22/16 12:07 IMPRESSION: 1. Quality of the images degraded by patient motion artifact but the study remains grossly diagnostic. 2. No evidence of osteomyelitis. 3. Soft tissue ulceration plantar to the 1st MTP joint. Forefoot subcutaneous edema compatible cellulitis versus lymphedema. No drainable fluid collection. 4. Mild 1st MTP degenerative changes. D/ / Jam Brunner MD / Jam Brunner MD Interpreting Provider: Jam Brunner MD Foot MRI 06/22/16 12:07 IMPRESSION: 1. Severe chronic midfoot destructive changes with widening of the Lisfranc joint space and overall disorganization compatible with Charcot arthropathy. Given the large midfoot joint effusions and clinical history of ulcerations which are not well visualized superimposed osteomyelitis is also suspected. This most likely involves the navicular, cuboid, cuneiform bones, and 2nd through metatarsals. The 1st metatarsal, talar head, and distal calcaneus may also be involved. 2. Plantar midfoot soft tissue fluid collection measuring approximately 2.4 x 1.1 x 3 cm contacting the plantar surface of the cuboid and likely communicating with the large midfoot joint effusions. 3. Fluid collections encasing the 1st through 5th metatarsal shafts most severely affecting the 3rd and 4th metatarsals. 4. Extensive soft tissue edema compatible with cellulitis. Multiple dorsal forefoot skin blisters. No well-defined soft tissue ulceration identified. 5. Chronic destructive changes of the 5th metatarsal head and 5th MTP degenerative changes. This may represent chronic septic arthritis/osteomyelitis. 6. Moderate to severe anterior tibial and extensor digitorum longus tenosynovitis in the midfoot. Mild posterior tibial and peroneal tenosynovitis. D/ / Jam Brunner MD / Jam Brunner MD Interpreting Provider: Jam Brunner MD Consult Discharge Plan - Plan Referrals: Almas Ac DO [Primary Care Provider] - 06/27/16 3:00 pm (Please follow up as schedule...) <Dilshad Kelly - Last Filed: 06/23/16 18:17> Date of Encounter: 06/23/16 - Constitutional Vitals: Temp Pulse Resp BP Pulse Ox 98.3 F 85 20 115/60 98 06/23/16 17:45 06/23/16 18:05 06/23/16 18:05 06/23/16 18:05 06/23/16 18:05 Internal Medicine: Result - Labs CBC & Chem 7: 06/23/16 05:20 06/23/16 04:43 Labs: Short CBC 06/23/16 Range/Units 05:20 WBC 13.3 H (4.3-11.1) K/mcL Hgb 8.7 L (11.5-15.4) g/dL Hct 29.3 L (35.3-44.9) % Plt Count 267 (140-400) K/mcL Neutrophils # 11.7 H (1.6-8.9) K/mcL BMP 06/23/16 04:43 Sodium 136 Potassium 3.1 L Chloride 103 Carbon Dioxide 20 BUN 25 H Creatinine 2.15 H Glucose 59 L Calcium 8.9 - ABG Interpretation ABG results: PT/INR, D-dimer PT 16.2 Seconds (9.4-12.1) H 06/18/16 21:00 D-Dimer 6782 ng/mLFEU (0-500) H 06/18/16 15:47 - Attending Attestation I examined this patient and my medical decision-making was reviewed with the INTAKE NURSE/PA/Advanced Practice Nurse/Resident Physician. I agree with the documented findings, disposition and treatment plan as described except to the extent set forth below. Agree with Dr. Villa, OM will go to OR today. Broad spectrum antibiotics. JULISSA, will give iv fluids.
[2016-06-23] MEDS ORDERED: Bupivacaine/Clonidine Syringe 1 EACH SYRINGE ONE (15:40)
[2016-06-23] MEDS ORDERED: Piperacillin/Tazobactam 3.375 GM in D5% in Water (Mini-Bag+) 100 ML IVPB SCH (16:00)
[2016-06-23] MEDS ORDERED: Vancomycin 1,000 MG in D5% in Water 250 ML IVPB ONE ×2 (16:04→19:01)
[2016-06-23] MEDS ORDERED: Famotidine 20 MG/2 ML VIAL ONE (16:08)
[2016-06-23] MEDS ORDERED: Metoclopramide 10 MG/2 ML VIAL ONE (16:08)
[2016-06-23] MEDS ORDERED: Propofol 500 MG/50 ML INFUS..BTL ONE (16:14)
[2016-06-23] MEDS ORDERED: Ondansetron 4 MG/2 ML VIAL IVP ONE ×2 (16:55→19:01)
[2016-06-23] MEDS ORDERED: *HR* HYDROmorphone (PF) 1 MG/ML SYRINGE IVP PRN ×2 (16:55→19:01)
[2016-06-23] MEDS ORDERED: Vancomycin 1 EACH in D5% in Water 250 ML IVPB PRN ×2 (17:00→19:01)
--- NOTE | 2016-06-23 17:15 | Orthopedic Operative Note ---
Date of procedure: 06/23/16 Pre-op diagnosis: Infection abscess right foot, multiple areas Post-op diagnosis: other (Osteomyelitis right midfoot) Procedure: 06/23/16 17:13 #1 incision and drainage of multiple areas #2 incision ball cortex for osteomyelitis cultures taken tissue and bone Implants: None Complications: None Anesthesia: MAC Local Anesthetics: Other (No local anesthetic used because the patient's profound loss of protective sensation) Surgeon: Stone Lenz Estimated blood loss (cc): 20 (20 mL of purulent exudate) Tourniquet Time (Minutes): 0 Specimen: Swab cultures 4. 2 of the medial foot 2 of the lateral foot, bone culture Condition: stable Disposition: PACU Procedure in Detail: 06/23/16 17:15 Details in summary of procedure: Patient was brought to the surgical suite. A sign in procedure was performed. Patient remained on transport bed. Patient was then placed properly safely securely on the bed and the right foot and leg was elevated on a foam block. No tourniquet was used. Monitored anesthesia care was begun the patient was then sedated. No anesthesia/local infiltration nerve block was performed because the patient's profound loss of protective sensation. Examining the foot appreciated a completely modeled discolored dusky forefoot and plantar forefoot as far proximal as the midfoot. We see 2 fluctuant areas on the dorsomedial and dorsolateral aspect of the right foot medial wound measured approximately 5 cm long 4 cm wide. Incision was made within the apex of the fluctuance immediate purulent exudate with a foul fetid odor was expressed and cultured immediately. Approximately 10 mL was expressed at minimum. The necrotic tissue was carefully debrided down to the anterior tibial tendon which was exposed to the abscess. We could readily palpate the first metatarsocuneiform joint without difficulty. There was palpated and visualized. All necrotic tissue was debrided thoroughly irrigated with saline. A lateral sinus tract was noted to track toward the fourth metatarsal cuneiform joint. Next area of fluctuance was on the lateral aspect of the foot overlying the fifth metatarsal incision was made over the apex of the fluctuance and was lengthened to 6 cm in length proximal 1 cm with it to track proximally and laterally and medially. Approximately 10 mL of purulent drainage was expressed from the lateral aspect of the foot and palpation of the tarsometatarsal joints was easily accessed with free palpable portions of bone fragments within the proximal portion of the wound. One was grasped with a hemostat and sent for culture. That wound too was also thoroughly debrided surgically as well as irrigated with copious amounts of sterile saline. The next area of fluctuance was on the dorsal aspect of the third metatarsal where a 5 cm incision was placed approximately 2 cm wide after debridement it too had approximately 3-5 mL of purulent drainage which was expressed as well there is no tracking or cyst tunneling with that particular abscess in the dorsal aspect. It too was sterilely debrided as well as irrigated. We also noted areas of abscess on the plantar aspect of the first metatarsocuneiform joint midfoot and over the lateral aspect of the base of the third metatarsal approximately 27 m in length 1 cm with open sinus tract down to the fascia and approximately 1-2 mL of purulent drainage was expressed from these areas as well. After thorough irrigation skin prep was applied to all areas of the dorsal and plantar foot wound VAC was applied to the 3 incisions on the dorsal aspect of the foot and dry sterile dressings were then applied to the plantar aspect as well as 4 x 4's and Kerlix to anchor the wound VAC was noted to function properly. Patient tolerated the procedure and was sent to PACU in good condition with vital signs stable cultures were taken of the dorsal and medial wounds aerobic and anaerobic as well as bone culture from the lateral incisional wound. After thorough investigation and in my estimation this foot is not salvageable the patient would best be served with a likely below-knee amputation given her comorbidities present infection it is fulminant nature and complete involvement of the midfoot including the osseous structures complicated by her Charcot arthropathy. This procedure is to prevent sepsis.
[2016-06-23] MEDS ORDERED: *HR* Dextrose 50 % in Water (Syg) 50 ML SYRINGE IVP PRN ×2 (17:23→19:01)
--- NOTE | 2016-06-23 18:13 | Anesthesia Evaluation Post Op ---
Date of Encounter: 06/23/16 Time of Encounter: 18:12 - Vital Signs Vital Signs: Vital Signs/O2 Sat, Most Current Temp Pulse Resp BP Pulse Ox 98.3 F 85 20 115/60 98 06/23/16 17:45 06/23/16 18:05 06/23/16 18:05 06/23/16 18:05 06/23/16 18:05 - Lungs Lungs: Clear Ascult./Percussion - Airway Airway: Non-obstructed - Cardiovascular Regular Rate - Mental Status Mental Status: Asleep with brisk response to light stimulation - Pain Pain Scale: 0 Pain Scale used: Numeric (1 - 10) - Nausea Vomiting Nausea Vomiting: Not Present - Hydration Hydration: Ice chips, Has not voided - Discharge PostOp Status: Transfer Patient to floor
[2016-06-23] MEDS ORDERED: Naloxone 0.4 MG/ML INJ IVP PRN (19:01)
[2016-06-23] MEDS ORDERED: Dextrose Gel 15 GM PO PRN ×2 (19:01)
[2016-06-23] MEDS ORDERED: Ondansetron 4 MG/2 ML VIAL IVP PRN (19:01)
[2016-06-23] MEDS ORDERED: Saliva Stimulant 100ml BOTTLE PO PRN (19:01)
[2016-06-23] MEDS ORDERED: D5% in Water 1,000 ML IVC PRN (19:01)
[2016-06-23 20:48] LABS: Chloride,Urine 60 mEq/L
[2016-06-23] MEDS ORDERED: Insulin DETEMIR 100 UNIT/ML X5UNITS SQ SCH (21:00)
[2016-06-24] MEDS ORDERED: Piperacillin/Tazobactam 3.375 GM in D5% in Water (Mini-Bag+) 100 ML IVPB SCH
[2016-06-24] MEDS: *HR* OxyCODONE/APAP 5/325 TABLET PO PRN ×3 (03:31→23:15)
[2016-06-24] MEDS: *HR* Heparin 5,000 UNIT/ML VIAL SQ SCH ×3 (06:00→21:34)
[2016-06-24 06:29] LABS: Basophils % 0.2 %; Eosinophils # 0.2 K/mcL (0.0-0.6); Eosinophils % 1.2 %; Hematocrit 27.9 % (35.3-44.9); Hemoglobin 8.3 g/dL (11.5-15.4); Immature Granulocytes % 4.8 % (0-4); Lymphocytes # 1.6 K/mcL (0.6-4.6); Mean Corpuscular HGB Conc 29.7 g/dL (31.6-35.5); Mean Corpuscular Volume 80.6 fL (83.0-100.0); Monocytes # 1.1 K/mcL (0.0-1.3); Monocytes % 8.7 %; Neutrophils # 8.7 K/mcL (1.6-8.9); Platelet Count 305 K/mcL (140-400); Red Blood Count 3.46 M/mcL (3.82-4.97); Red Cell Distribution Width 17.1 % (11.5-14.5); Segmented Neutrophils % 72.1 %
[2016-06-24 06:46] LABS: Calcium 8.7 mg/dL (8.6-10.8)
[2016-06-24 06:55] LABS: Creatine Kinase 7 Units/L (29-168)
[2016-06-24 06:59] LABS: C-Reactive Protein 215 mg/L (Less than 5)
[2016-06-24] MEDS: Insulin LISPRO 300 UNITS/3 ML VIAL SQ SCH ×4 (08:06→21:36)
[2016-06-24] MEDS: 0.9 % Sodium Chloride 1,000 ML IVC SCH ×3 (08:08→23:25)
[2016-06-24] MEDS ORDERED: Vancomycin 500 MG in D5% in Water (Mini-Bag+) 100 ML IVPB ONE ×2 (09:00→18:00)
--- NOTE | 2016-06-24 10:08 | Nephrology Consult Note ---
Date of Encounter: 06/24/16 Time of Encounter: 09:55 Assessment and Plan (1) Acute kidney injury Current Visit: Yes Status: Acute Patient developed an JULISSA shortly after admission at [facility]. She presented with normal kidney function with no know history of kidney disease. Her kidney function remained normal for the first couple days, but she was found to have an JULISSA with check of blood chemistry on 06/22/16. This was watched for 2 days where her SCr went from 1.89 -> 2.15 -> 1.87. During her admission there have been several factors that have contributed to her JULISSA. She received IV contrast dye for a CTA on 06/18/16 and again on 06/22/16. She has been on vancomycin during her hospitalization for suspected osteomyelitis. She also has been septic during her admission with occasion SBP in the 90s and extensive edema that could be causing some 3rd spacing of intravascular volume. Her renal function is seemingly rebounding currently with continued fluid repletion. With the improvement seen, her JULISSA could be due to the CT contrast and not necessarily the vancomycin, but will follow renal function Continue IVF, continue to monitor volume status in order to avoid fluid overload Will obtain renal U/S Can continue Vancomycin for now given improvement seen in patient renal functions can consider changing vancomycin to linezolid Continue to watch renal function for further improvement Avoid nephrotoxic agents if possible (2) Cellulitis Current Visit: Yes Status: Acute Patient being treated for cellulitis and suspected osteomyelitis with Zosyn and Vancomycin. Patient had received both Vanco and Zosyn on 06/18-06/19, but it had been stopped before being resumed again on 06/22. Plan as above Qualifiers: Site of cellulitis: extremity Site of cellulitis of extremity: lower extremity Laterality: right Qualified Code(s): L03.115 - Cellulitis of right lower limb (3) Microcytic anemia Current Visit: Yes Status: Chronic Due to iron deficiency Continue to monitor with daily CBC Care per primary team (4) Insulin dependent diabetes mellitus Current Visit: Yes Status: Chronic Blood glucose control per primary team (5) Hemangioma of liver Current Visit: Yes Status: Chronic Chronic issue for which she follows up at [facility] periodically History of Present Illness - Reason for Consult Consult date: 06/24/16 Acute Kidney Injury Requesting physician: Kiana Villa - Chief Complaint Right foot wound - History of Present Illness Mrs. Anthony Cook is a 55 year old woman with prior medical history of DM II, GERD, hld, and a hepatic hemangioma who presented to [facility] on 06/18/16 due to several days of fever, chills, exertional dyspnea, and worsening foot pain. She was found to be septic from a suspected source from her chronic diabetic foot ulcers. She was admitted and had been receiving antibiotics because of her infection. After acute respiratory pathology was ruled out she was seen by podiatry for further care of her right foot ulcers. During this time, she was evaluated by Vascular surgery because of the concerns for lower extremity ischemia. Though she was found to have adequate blood flow to her extremity, her problems persisted and she underwent a foot MRI to further evaluate. This showed Charcot arthropathy, ulcerations, and was suspicious for osteomyelitis. She was taken by podiatry for debridement and biopsy of her right foot, from which we are waiting for culture results. She had initially received Zosyn and Vancomycin for the first 2 days she was here, but this was replaced with Unasyn after initial culture suggested sensitivity to this antibiotic. Unfortunately, after osteomyelitis was suspected she was started on the vancomycin and zosyn. There were no blood chemistry results for a couple days, and when rechecked her renal function had worsened. This was found after she had undergone [address] scans and had received several days of vancomycin. On top of this she also has been septic with evidence of fluid in the intravascular space suggesting third spacing. All of these could be contributory to her JULISSA. She appears comfortable when seen. She denies any problems with shortness of breath, urinating, back pain, dysuruia, hematuria, chest pain, or diarrhea. She does report that she has had continued pain in her right foot however. 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.) - Social History Smoking Status: Never smoker Smokeless Tobacco Status: No Alcohol use: none Drug use: unknown - Family History Mother Living Status: Age at : 71 Cause of : dementia Hx Family Cardiac Disorders: Yes Hx Family Respiratory Disorders: No Hx Family Cancer: Yes Hx Family GI Disorders: No Hx Family Genitourinary Disorders: No Hx Family Endocrine Disorder: No Hx Family Musculoskeletal Disorders: No Hx Family Neuromuscular Disorders: No Hx Family Neurologic Disorders: No Hx Family HEENT Disorders: No Hx Family Autoimmune Disorders: No Hx Family Reproductive Disorders: No Hx Family Psychosocial Disorders: No Hx Family Medical Disorders: Yes Father Living Status: Hx Family Endocrine Disorder: Yes Medications and Allergies Insulin ASPART [NovoLOG] 20 - 45 unit SQ TIDWM 10/15/14 [History] Medroxyprogesterone Acetate [Depo-Provera] 150 mg IJ [id number] 10/15/14 [History] Sertraline [Zoloft] 100 mg PO DAILY 10/15/14 [History] Doxycycline Hyclate [Vibramycin] 100 mg PO BID 06/19/16 [History] Furosemide [Lasix] 20 mg PO DAILY 06/19/16 [History] Omeprazole [PriLOSEC] 20 mg PO DAILY 06/19/16 [History] Oxycodone HCl/Acetaminophen [Percocet 5-325 mg Tablet] 1 each PO Q8H PRN [History] Allergies No Known Allergies Allergy (Verified 06/18/16 14:55) Review of Systems Constitutional: no chills, no excessive sweating, no fatigue, no fever(s), no weakness, no weight loss Nose, mouth and throat: no dizziness, no headache(s) Cardiovascular: pedal edema, no chest pain, no dyspnea, no dyspnea on exertion, no edema, no palpitations Respiratory: no cough, no dyspnea Gastrointestinal: no abdominal pain, no change in bowel habits, no hematemesis, no hematochezia, no melena, no nausea, no vomiting Musculoskeletal: numbness, tingling, other (pain in her r foot), no muscle weakness Integumentary: erythema, non-healing lesions, rash, skin ulcer, sores, wounds, no pruritus Neurological: numbness, tingling, no headache(s), no weakness Psychiatric: no confusion, no depression Exam - Vital Signs Vital signs: Initial Vital Signs Temp Pulse Resp BP Pulse Ox 98.0 F 111 22 105/57 94 06/18/16 14:55 06/18/16 14:55 06/18/16 14:55 06/18/16 14:55 06/18/16 14:55 Vital Signs - Last 8 Hours Temp Pulse Resp BP Pulse Ox 06/24/16 07:22 97.7 F 82 14 121/67 97 06/24/16 04:00 98.2 F 82 18 108/60 99 Intake and Output 06/23/16 06/24/16 06/24/16 23:59 07:59 15:59 Intake Total 250 / 250 1100 / 1100 600 / 600 Output Total 220 / 220 60 / 60 150 / 150 Balance 30 / 30 1040 / 1040 450 / 450 Intake: IV Fluids 250 / 250 1100 / 1100 0.9 % Sodium Chloride 1, 1000 / 1000 000 ML @ 125 mls/hr IVC . Q8H [facility] Rx#:[id number] Zosyn 3.375 GM In 100 / 100 Dextrose 5% (Minibag+) 100 ML 100 ML @ 25 mls/hr IVPB Q12H [facility] Rx#: [id number] Vancocin 1,000 MG In 250 / 250 Dextrose 5% 250 ML @ 167 mls/hr IVPB ONCE ONE Rx#: [id number] Oral 0 / 0 600 / 600 Output: Urine 200 / 200 150 / 150 Estimated Blood Loss 20 / 20 Wound Drainage 60 / 60 Right Foot 60 / 60 Other: Meal Breakfast Percent of Meal Consumed 100% Weight 90 kg Blood Glucose* 75 204 Patient Weight 06/24/16 23:59 Weight 90 kg - General Appearance General appearance: well-developed, well-nourished, appears started age EENT: ATNC, PERRL, mucous membranes dry, hearing intact, vision intact Neck: no JVD, supple Respiratory: no kyphosis, rales (b/l L>R) Cardiology: no murmurs, no rub, no gallops, edema (1+ pitted edema present in b/ l LE to patient waist), regular rate, regular rhythm, normal S1, normal S2 Gastrointestinal: normoactive bowel sounds, no tenderness, no guarding, no organomegaly, no masses, obese, distended Neurologic: no focal deficit, no asterixis, alert and oriented x3 Musculoskeletal: deformities, erythema, cyanosis, no clubbing Additional Comments: Patient has had 3 fingers of L hand surgically removed R foot appears cyanotic and cold bandage over wounds in place in right and left LE Psychiatric: mood/affect appropriate, cooperative Results - Lab Results 06/24/16 06:07 06/24/16 06:07 Most recent lab results Calcium 8.7 mg/dL (8.6-10.8) 06/24/16 06:07 Magnesium 1.9 mg/dL (1.6-2.6) 06/24/16 06:07 Urine Creatinine 35 mg/dL 06/23/16 11:37 Consult Discharge Plan - Plan Referrals: Almas Ac DO [Primary Care Provider] - 06/27/16 3:00 pm (Please follow up as schedule...)
[2016-06-24] MEDS: *HR* Acetylcysteine 20% 600 MG/3 ML ORAL SYRINGE PO SCH (11:31)
[2016-06-24] MEDS: Piperacillin/Tazobactam 3.375 GM in D5% in Water (Mini-Bag+) 100 ML IVPB SCH ×3 (11:38→23:15)
--- NOTE | 2016-06-24 11:47 | Internal Med Progress Note ---
<AllenKianacathy Robison - Last Filed: 06/24/16 13:01> Date of Encounter: 06/24/16 Time of Encounter: 10:30 - Assessment and plan (1) Sepsis Current Visit: Yes Status: Acute Assessment and plan: 06/22/16 Patient with foot ulcer which cultured Staph aureus that is sensitive to Anceph UTI with urine culture positive for Klebsiella ozaenae that is pansensitive WBC 14.3 today, increased from 12.1 yesterday Continue Anceph today (day#2) Patient being followed by podiatry for the bilateral wounds, we appreciate recommendations MRI right foot and ankle, pending Patient being followed by vascular surgery, we appreciate recommendations JULIANA relatively normal Diminished TC PO2 on right foot Will plan to discharge home with oral antibiotics 06/23/16 WBC 13.3 today with worsening of right foot swelling today concerning for compartment syndrome MRI of right foot suggests osteomyelitis Previously, left foot culture revealed Staph aureus However, right culture was not collected Given progression of disease, we will restart Vanc and Zosyn to expand antibiotic coverage Discontinue Aneph Dr. Lenz plans to take patient to surgery this afternoon for debridement 06/24/16 Patient is s/p day#1 incision and drainage of right foot with cultures per Dr. Delfin Lenz believes foot is not salvageable and recommends below knee amputation WBC 12.1 today, trending down Surgical biopsies cultures of bone and tissue are pending Continue Vanc (day# ) and Zosyn (day# ) Qualifiers: Sepsis type: methicillin susceptible Staphylococcus aureus Qualified Code(s ): A41.01 - Sepsis due to Methicillin susceptible Staphylococcus aureus (2) Cellulitis Current Visit: Yes Status: Acute Assessment and plan: Plan as above Qualifiers: Site of cellulitis: extremity Site of cellulitis of extremity: lower extremity Laterality: right Qualified Code(s): L03.115 - Cellulitis of right lower limb (3) Foot ulcer due to secondary DM Current Visit: Yes Status: Chronic Assessment and plan: Continue wound care instructions per podiatry We appreciate recommendations (4) Acute kidney injury Current Visit: Yes Status: Acute Assessment and plan: Cr 1.87 today, down from 2.15 yesterday Suspect injury is secondary to sepsis, vancomycin, and contrast-induced nephropathy Nephrology consult in place Appreciate recommendations (5) Microcytic anemia Current Visit: Yes Status: Chronic Assessment and plan: Iron, percent saturation, and transferrin low Ferritin high, however may be elevated in the setting of sepsis due to diabetic ulcer Polychromasia present High RDW These studies are suggestive of anemia of chronic disease (6) Exertional dyspnea Current Visit: Yes Status: Acute Assessment and plan: CTA chest showed no PE However, CT did demonstrate bilateral pleural effusions, with patchy bibasilar airspace opacities Suspect dyspnea likely secondary to sepsis CHF cannot be excluded Continue supplemental O2 and supportive care (7) Insulin dependent diabetes mellitus Current Visit: Yes Status: Chronic Assessment and plan: HbA1C noted to be 12.6% Levemir 30u BID low-dose SS ACHS Diabetic diet (8) Hemangioma of liver Current Visit: Yes Status: Chronic Assessment and plan: CTA demonstrated partially visualized mass in liver 9.1x15.2cm containing fat, calcium, and soft tissue CTA abdomen demonstrated ascites Patient states that she follows with Dr. Ch at [facility] and has repeat imaging every 2 years to monitor (9) Hypomagnesemia Current Visit: Yes Status: Resolved Assessment and plan: Repleted Continue to monitor (10) DVT prophylaxis Current Visit: Yes Status: Acute Assessment and plan: Heparin SQ - Time Spent With Patient 25 - 35 minutes (30 minutes including time with patient and time coordinating care) - Subjective Interval history: Patient is s/p day #1 incision and drainage of multiple sites to right foot with incision of ball cortex for cultures of tissue and bone per Dr. Lenz. Patient states that right foot and leg have decreased swelling and pain today. Dr. Lenz recommends below the knee amputation due to foot not being salvageable. Patient adamant that she does not want to loose her foot. - Constitutional Vitals: Temp Pulse Resp BP Pulse Ox 97.7 F 82 14 121/67 97 06/24/16 07:22 06/24/16 07:22 06/24/16 07:22 06/24/16 07:22 06/24/16 07:22 General appearance: Present: cooperative, A&O X 3, answers questions appropriately - Head Head exam: Present: atraumatic, normocephalic - Eye Eye exam: Present: PERRL, conjuntiva pink, sclera anicteric Pupils: Present: PERRL - Neck Neck exam general surgery: Present: supple, trachea midline. Absent: lymphadenopathy - Respiratory Respiratory exam: Present: rales (bilateral). Absent: accessory muscle use, rhonchi, wheezes - Cardiovascular Cardiovascular exam: Present: RRR, +S1, +S2. Absent: diastolic murmur, gallop, rubs, systolic murmur - GI/Abdominal GI/Abdominal exam: Present: distended, firm, normal bowel sounds, soft Additional comments: No TTP. No fluid wave appreciated. However, dullness to percussion. No caput medusae. - Extremities Exam Extremities exam: Present: cyanotic (Right foot), pedal edema, warm, radial pulses palpable and symetrical. Absent: calf tenderness Additional comments: Right foot with dusky-blue cast, cold to touch, erythema Right lower leg 2+ pitting edema to level of right knee, edema improved from yesterday Right upper leg with 1+ pitting edema from level of knee to thigh Left lower leg 1+ pitting edema to level of knee Left upper leg with 1+ pitting edema from level of knee to thigh - Neurological Exam Neurological exam: Present: CN II-XII intact, oriented X3, no focal deficits. Absent: facial droop, speech deficit - Skin Skin exam: Present: dry, intact Internal Medicine: Result - Labs CBC & Chem 7: 06/24/16 06:07 06/24/16 06:07 Labs: Short CBC 06/24/16 Range/Units 06:07 WBC 12.1 H (4.3-11.1) K/mcL Hgb 8.3 L (11.5-15.4) g/dL Hct 27.9 L (35.3-44.9) % Plt Count 305 (140-400) K/mcL Neutrophils # 8.7 (1.6-8.9) K/mcL BMP 06/24/16 06:07 Sodium 135 L Potassium 4.0 Chloride 104 Carbon Dioxide 23 BUN 23 H Creatinine 1.87 H Glucose 177 H Calcium 8.7 - ABG Interpretation ABG results: PT/INR, D-dimer PT 16.2 Seconds (9.4-12.1) H 06/18/16 21:00 D-Dimer 6782 ng/mLFEU (0-500) H 06/18/16 15:47 - Impressions Chest X-Ray 06/18/16 15:19 IMPRESSION: Findings suggestive of mild congestive heart failure. Atelectasis or infiltrate cannot be excluded in the lung bases. Follow up to resolution is suggested. D/ / 06/18/2016 16:21:52 Amaris Hickman MD / shankar Interpreting Provider: Amaris Hickman MD Chest CTA 06/18/16 16:06 IMPRESSION: 1. No evidence of pulmonary embolism. 2. Small bilateral pleural effusions. Patchy bibasilar airspace opacities are present, which are favored to represent compressive atelectasis although a component of pneumonia cannot be entirely excluded radiographically. 3. Coronary atherosclerosis. 4. Partially visualized 9.1 x 15.2 cm mass within the right hepatic lobe, which contains fat, soft tissue, and calcifications. The differential includes hepatic adenoma, teratoma, angiomyolipoma, and hepatocellular carcinoma. A small amount of ascites is seen in the upper abdomen. Further evaluation with liver mass protocol CT is recommended. D/ / 06/18/2016 17:39:54 Diego Romero MD / Albertina Carroll Interpreting Provider: Diego Romero MD Foot X-Ray 06/18/16 17:32 IMPRESSION: 1. Soft tissue ulcer involving the plantar aspect of the foot at the level of the metatarsophalangeal joint. 2. No radiographic evidence for osteomyelitis. D/ / Ruslan Cardenas MD / Ruslan Cardenas MD Interpreting Provider: Ruslan Cardenas MD Aorta w/Runoff CTA 06/22/16 10:30 IMPRESSION: 1. No significant stenosis involving the aortoiliac system. 2. Moderate diffuse atherosclerotic disease involving the superficial femoral and popliteal arteries but no significant stenosis. 3. 2 vessel runoff as discussed above bilaterally. 4. Bilateral pleural effusions with lower lobe atelectasis. 5. Large mixed density mass in the right lobe of the liver with calcifications and fatty elements. Differential diagnosis does include teratoma, hepatocellular carcinoma, adenoma or liposarcoma. I would recommend MRI for further evaluation. 6. Ascites. D/ / Ruslan Cardenas MD / Ruslan Cardenas MD Interpreting Provider: Ruslan Cardenas MD Ankle MRI 06/22/16 12:07 IMPRESSION: 1. Severe chronic midfoot destructive changes with widening of the Lisfranc joint space and overall disorganization compatible with Charcot arthropathy. Given the large midfoot joint effusions and clinical history of ulcerations which are not well visualized superimposed osteomyelitis is also suspected. This most likely involves the navicular, cuboid, cuneiform bones, and 2nd through metatarsals. The 1st metatarsal, talar head, and distal calcaneus may also be involved. 2. Plantar midfoot soft tissue fluid collection measuring approximately 2.4 x 1.1 x 3 cm contacting the plantar surface of the cuboid and likely communicating with the large midfoot joint effusions. 3. Fluid collections encasing the 1st through 5th metatarsal shafts most severely affecting the 3rd and 4th metatarsals. 4. Extensive soft tissue edema compatible with cellulitis. Multiple dorsal forefoot skin blisters. No well-defined soft tissue ulceration identified. 5. Chronic destructive changes of the 5th metatarsal head and 5th MTP degenerative changes. This may represent chronic septic arthritis/osteomyelitis. 6. Moderate to severe anterior tibial and extensor digitorum longus tenosynovitis in the midfoot. Mild posterior tibial and peroneal tenosynovitis. D/ / Jam Brunner MD / Jam Brunner MD Interpreting Provider: Jam Brunner MD Foot MRI 06/22/16 12:07 IMPRESSION: 1. Quality of the images degraded by patient motion artifact but the study remains grossly diagnostic. 2. No evidence of osteomyelitis. 3. Soft tissue ulceration plantar to the 1st MTP joint. Forefoot subcutaneous edema compatible cellulitis versus lymphedema. No drainable fluid collection. 4. Mild 1st MTP degenerative changes. D/ / Jam Brunner MD / aJm Brunner MD Interpreting Provider: Jam Brunner MD Consult Discharge Plan - Plan Referrals: Almas Ac DO [Primary Care Provider] - 06/27/16 3:00 pm (Please follow up as schedule...) <Dilshad Kelly - Last Filed: 06/24/16 17:54> Date of Encounter: 06/24/16 - Constitutional Vitals: Temp Pulse Resp BP Pulse Ox 97.9 F 85 14 121/65 98 06/24/16 15:17 06/24/16 15:17 06/24/16 15:17 06/24/16 15:17 06/24/16 15:17 Internal Medicine: Result - Labs CBC & Chem 7: 06/24/16 06:07 06/24/16 06:07 Labs: Short CBC 06/24/16 Range/Units 06:07 WBC 12.1 H (4.3-11.1) K/mcL Hgb 8.3 L (11.5-15.4) g/dL Hct 27.9 L (35.3-44.9) % Plt Count 305 (140-400) K/mcL Neutrophils # 8.7 (1.6-8.9) K/mcL BMP 06/24/16 06:07 Sodium 135 L Potassium 4.0 Chloride 104 Carbon Dioxide 23 BUN 23 H Creatinine 1.87 H Glucose 177 H Calcium 8.7 - ABG Interpretation ABG results: PT/INR, D-dimer PT 16.2 Seconds (9.4-12.1) H 06/18/16 21:00 D-Dimer 6782 ng/mLFEU (0-500) H 06/18/16 15:47 - Attending Attestation I examined this patient and my medical decision-making was reviewed with the NURSE PRACTITIONER HOME ASSESSMENTS/PA/Advanced Practice Nurse/Resident Physician. I agree with the documented findings, disposition and treatment plan as described except to the extent set forth below. IV antibiotics, ID eval, pdiatry input. D/W patient.
--- NOTE | 2016-06-24 11:50 | Infectious Disease Consult ---
Date of Encounter: 06/24/16 Time of Encounter: 11:45 Assessment and Plan (1) Sepsis Status: Acute Assessment and plan: The patient initially had tachycardia, tachypnea, and bandemia. She subsequently developed leukocytosis with neutrophilic predominance. Likely secondary to right foot infection. Improved. Tachycardia, tachypnea, and bandemia have resolved. WBC is trending down, 12.1 today with normal differential. Blood cultures drawn 06/18/16 are negative x 2 sets. Qualifiers: Sepsis type: methicillin susceptible Staphylococcus aureus Qualified Code(s ): A41.01 - Sepsis due to Methicillin susceptible Staphylococcus aureus (2) Right foot infection Status: Acute Assessment and plan: Causative organism unclear. Intra-operative bone and tissue cultures are pending. MRI of the right foot and ankle showed findings consistent with Charcot arthropathy, possible OM, and fluid collections in the soft tissue of the plantar midfoot and encasing the 1st-5th metatarsal shafts. Status post I & D of multiple areas of the right foot and incision of ball cortex 06/23/[address] Lenz. Operative report reviewed. No evidence of bone abnormality, but infection quite extensive. According to the operative note, she may eventually require amputation of the foot. ESR and CRP elevated, 62 and 184 respectively. Etiology unclear as there were no ulcers noted to the foot except for the superficial bullous lesions. Continue wound care as outlined by the Podiatry team. Continue Vancomycin IV. Pharmacy to dose. Goal trough approximately 15. Most recent VT 20.8. Continue Zosyn 3.375 grams IV Q8H. Will de-escalate based on cultures. Duration of treatment depends on the clinical picture. The patient will likely require IV antibiotics after discharge. Monitor renal function and for drug toxicity and dose-adjust antibiotics. Consult social work associate for discharge planning. (3) Cellulitis Status: Acute Assessment and plan: Location: Right foot and lower extremity. Improved. Causative organism unclear. Continue antibiotics as outlined above. Qualifiers: Site of cellulitis: unspecified site Qualified Code(s): L03.90 - Cellulitis , unspecified (4) Acute kidney injury Status: Acute Assessment and plan: Likely multifactorial --> nephrotoxic agents + CT contrast +/- underlying diabetic nephropathy. Serum creatinine peaked at 2.15. Improved to 1.87 today. Nephrology consulted. Await their recommendations. Dose-adjust antibiotics based on creatinine clearance. Avoid nephrotoxins as much as possible. (5) Skin bulla Status: Acute Assessment and plan: Etiology unclear. Status post puncture aspiration at the bedside 06/19/[address] Lenz. Status post OR I & D 06/22/16. Wound care as outlined by the primary team. (6) Exertional dyspnea Status: Acute Assessment and plan: Likely secondary to sepsis, but the patient's CXR did show mild CHF. Additionally, the CT of the chest revealed small bilateral pleural effusions. Appears improved. Patient denies shortness of breath at this time. Currently on RA. Management per the primary team. (7) Foot ulcer due to secondary DM Status: Chronic Assessment and plan: Location: Plantar aspect of the left foot overlying the 1st MTP joint. Wound culture obtained - + MSSA --> the wound does not appear clinically infected. Likely a contaminant from the skin. The patient is already on antibiotics for the right foot infection, which will cover the MSSA in the event that this is a true infection. Continue wound care as outlined by the podiatry team. (8) Hemangioma of liver Status: Chronic Assessment and plan: Follows with general surgery at [facility]. (9) PAD (peripheral artery disease) Status: Chronic Assessment and plan: Vascular surgery team consulted. JULIANA normal bilaterally. Right TCPO2 diminished. CTA Aorta with runoff showed moderate diffuse artherosclerotic disease of the SFA and popliteal arteries. No surgical intervention required at this time. Likely contributing to the duskiness of the patient's foot and will likely impair the patient's ability to clear the foot infection and heal the wounds. (10) Charcot's arthropathy Status: Chronic (11) Insulin dependent diabetes mellitus Status: Chronic Assessment and plan: Uncontrolled. HgA1C 12.6. Recommend aggressive glucose monitoring and control to promote wound healing and prevent re-infection. Infectious Disease HPI - Data of Consult Patient: new to practice Consult date: 06/24/16 Requesting Physician: Dilshad Kelly Primary Care Provider: Almas Ac - Consult Narrative Reason for consult: Right foot infection History of present illness: Ms. Anthony Cook is a 55 year old female with a past medical history of uncontrolled diabetes, GERD, hyperlipidemia, liver hemangioma for which she follows at [facility], right ankle Charcot arthropathy, and anxiety. The patient was admitted to the hospital June 18 for sepsis and shortness of breath. We are consulted June 24 for further recommendations regarding her right foot infection. Briefly, the patient's a 55-year-old female with past medical history as stated above. The patient was originally admitted to the hospital when she came to the emergency department complaining of a 5 day history of shortness of breath. Upon arrival, patient was afebrile, but she was tachycardic and tachypneic. Her white blood cell count was normal, but she did have a left shift. Laboratory studies were significant for an elevated glucose as well as elevated D dimer at 6000. Urinalysis was obtained and was positive for pyuria, but also had many epithelial cells. Chest x-ray was completed that showed findings significant for mild CHF. CTA of the chest showed small bilateral pleural effusions and the right liver hemangioma. A left foot x-ray was completed that showed a soft tissue ulcer on the plantar aspect at the MTP joint, but no osteomyelitis. Blood cultures were obtained 2 sets and came back negative. Antibiotics were initiated in the emergency department including vancomycin and Zosyn. The patient was admitted for further evaluation and treatment. Since admission, the podiatry service has been consulted. They obtained a culture from the left foot wound that grew out MSSA, although the wound does not appear grossly infected. It was also noted that the patient had severe swelling of the right lower extremity and bullous lesions noted to the right dorsal foot. Dr. Lenz performed a puncture aspiration/drainage of the bullous lesion to the lateral aspect and got a small amount of serosanguineous drainage. No culture was obtained on this fluid. As the patient remained in hospital, there was noted to be increasing duskiness that started with the toe and slowly progressed to the plantar and dorsal aspects of the forefoot. Vascular surgery was consulted. TCPO was moderately diminished on the RLE. ABIs were normal. MRI of the right foot and ankle showed findings consistent with Charcot arthropathy as well as large midfoot joint effusions that were questionable for an underlying osteomyelitis. There was also a soft tissue fluid collection in the plantar aspect of the midfoot that communicated with a large mid joint effusions. There are also fluid collections encasing the first through fifth metatarsal shafts, most severely affecting the third and fourth metatarsals. There is also noted to be extensive soft tissue edema compatible cellulitis and multiple dorsal forefoot skin blisters. Additionally, there are chronic destructive changes to the fifth metatarsal head and fifth MTP degenerative changes, possibly representing chronic septic arthritis/osteomyelitis. MRI of the left foot was also completed that was essentially negative for any acute findings including osteo-myelitis or abscess. The patient was taken to the operating room yesterday by Dr. Lenz and underwent an I&D of multiple areas of the right foot and incision of the cortex for osteomyelitis. Tissue and bone was sent for culture currently pending. Review of the patient's labs revealed that the patient's white blood cell count did go up to 14,000, but has improved to 12.1 today. Her bandemia has resolved. Patient reports that she feels better and there is less pain in the foot. The patient was noted to have an acute kidney injury and nephrology is been consulted. Currently, the patient is on IV vancomycin and Zosyn. We've been asked to evaluate and make further recommendations. During my exam today, the patient endorses a history as stated above. She denies any fevers or rigors, but does report some chills prior to admission. She denies any headache or neck pain or dizziness. She had a congestion, earache , or sore throat. She denies any chest pain, did report some shortness of breath , worse with exertion. She denied any cough. She denies having any nausea, vomiting, or constipation. She does report some diarrhea prior to admission. She stated that she has chronic intermittent pain in both feet, but the right foot pain had gotten a lot worse. She reported that there are severe swelling and redness that went up to the middle of her adorno and calf. 10 point review of systems complete and is otherwise negative except as mentioned above. CC: Dilshad Kelly Past Med Surg Social Fam HX - Past Medical History Attestation: Yes The following information was validated with the patient. 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.) - Social History Smoking Status: Never smoker Smokeless Tobacco Status: No Alcohol use: none Drug use: unknown Occupational status: disabled Current living situation: Home, With Family Activity Level: Independent ambulation Recent Out of Country Travel Within the Last 8 Weeks: No Exposure or Possible Exposure to Illness During Travel: No - Family History Mother Living Status: Age at : 71 Cause of : dementia Hx Family Cardiac Disorders: Yes Hx Family Respiratory Disorders: No Hx Family Cancer: Yes Hx Family GI Disorders: No Hx Family Genitourinary Disorders: No Hx Family Endocrine Disorder: No Hx Family Musculoskeletal Disorders: No Hx Family Neuromuscular Disorders: No Hx Family Neurologic Disorders: No Hx Family HEENT Disorders: No Hx Family Autoimmune Disorders: No Hx Family Reproductive Disorders: No Hx Family Psychosocial Disorders: No Hx Family Medical Disorders: Yes Father Living Status: Hx Family Endocrine Disorder: Yes Infectious Disease-CN:Meds Insulin ASPART [NovoLOG] 20 - 45 unit SQ TIDWM 10/15/14 [History] Medroxyprogesterone Acetate [Depo-Provera] 150 mg IJ [id number] 10/15/14 [History] Sertraline [Zoloft] 100 mg PO DAILY 10/15/14 [History] Doxycycline Hyclate [Vibramycin] 100 mg PO BID 06/19/16 [History] Furosemide [Lasix] 20 mg PO DAILY 06/19/16 [History] Omeprazole [PriLOSEC] 20 mg PO DAILY 06/19/16 [History] Oxycodone HCl/Acetaminophen [Percocet 5-325 mg Tablet] 1 each PO Q8H PRN [History] Allergies No Known Allergies Allergy (Verified 06/18/16 14:55) All systems: reviewed and no additional remarkable complaints except as stated Exam - Constitutional Vitals: Temp Pulse Resp BP Pulse Ox 97.7 F 82 14 121/67 97 06/24/16 07:22 06/24/16 07:22 06/24/16 07:22 06/24/16 07:22 06/24/16 07:22 General appearance: average body habitus, cooperative, no acute distress - Head Head exam: Present: atraumatic, normal inspection, normocephalic - Eye Eye exam: Present: EOMI, normal appearance, PERRL Pupils: Present: normal accommodation - ENT ENT exam: Present: mucous membranes dry - Neck Neck exam: Present: normal inspection - Respiratory Respiratory exam: Present: CTAB. Absent: rales, respiratory distress, rhonchi, wheezes - Cardiovascular Cardiovascular exam: Present: RRR, +S1, +S2 - GI/Abdominal GI/Abdominal exam: Present: distended, firm, normal bowel sounds. Absent: tenderness - Extremities Exam Extremities exam: Present: pedal edema (Trace RLE). Absent: joint swelling, tenderness Additional comments: DFU noted to the medial aspect of the plantar aspect of the left foot. No darlene purulence or foul odor noted. No erythema. Non-tender. Right foot surgical site with wound VAC intact at 125mm Hg continuous suction. Dressing intact. Small amount of serosanguinous drainage noted in the wound VAC canister. Distal forefoot at the MTP joint and spreading distally to the toes dusky and cool to touch. I & D surgical site noted to the plantar aspect of the right foot without any active drainage noted at this time. Area of duskiness previously marked and does not extend beyond previous markings. 1+ PT pulse palpable. DP non-palpable. - Neurological Exam Neurological exam: Present: alert, oriented X3, no focal deficits - Psychiatric Psychiatric exam: Present: normal affect, normal mood - Skin Skin exam: Present: dry, intact, normal color, warm Infectious Disease CN: Results - Labs CBC & Chem 7: 06/24/16 06:07 06/24/16 06:07 Cultures: Cultures 06/23/16 16:45 Surgical Biopsy Culture - Preliminary Right Foot 06/19/16 10:30 Wound Culture - Final Left Foot Staphylococcus aureus Serology: Serology 06/24/16 06/23/16 06/23/16 Range/Units 06:07 11:37 11:37 Ur Eosinophil Smear 4 H (None Seen) % Urine Creatinine 35 mg/dL Urine Microalbumin 28 mg/L Microalb/Creat Ratio 80 H (0-30) Urine Chloride mEq/L Urine Calcium mg/dL HIV Ag/Ab Combo Qual Nonreactive (Nonreactive) 06/23/16 Range/Units 08:24 Ur Eosinophil Smear (None Seen) % Urine Creatinine mg/dL Urine Microalbumin mg/L Microalb/Creat Ratio (0-30) Urine Chloride 60 mEq/L Urine Calcium < 2.0 mg/dL HIV Ag/Ab Combo Qual (Nonreactive) Consult Discharge Plan - Plan Referrals: Almas Ac DO [Primary Care Provider] - 06/27/16 3:00 pm (Please follow up as schedule...)
--- NOTE | 2016-06-24 17:00 | Podiatry Progress Note ---
Date of Encounter: 06/24/16 Time of Encounter: 12:00 - Assessment and Plan (1) Foot ulcer due to secondary DM Current Visit: Yes Status: Chronic Left foot ulceration debrided using #15 blade- patient tolerated well. No complications Tolerated well Adaptic and dry dressing reapplied. To change daily (2) Insulin dependent diabetes mellitus Current Visit: Yes Status: Chronic (3) Charcot's arthropathy Current Visit: Yes Status: Chronic (4) Right foot infection Current Visit: Yes Status: Acute s/p #1 incision and drainage of multiple areas #2 incision ball cortex for osteomyelitis cultures taken tissue and bone Toes assessed, remain cyanotic, will continue to monitor, possible BKA will be needed Wound vac intact and running without issue Patient will have powerglide placed and will need senior living antibiotic therapy Awaiting cultures to determine length and coverage Explained to patient at bedside per ID Call with any issues Wound vac will be MWF change starting this upcoming monday dry dressing change to plantar wounds daily. Subjective Interval history: Patient s/p #1 incision and drainage of multiple areas #2 incision ball cortex for osteomyelitis cultures taken tissue and bone per Dr Lenz on 06/23. Patient resting comfortably on arrival to room. States she is feeling much better today. Patient denies any pain or issues at this time. Patient denies any fevers chills or calf pain. Wound vac intact and running without issue at this time. Objective - Vital Signs Vital Signs: Vital Signs Temp Pulse Resp BP Pulse Ox 06/24/16 15:17 97.9 F 85 14 121/65 98 06/24/16 12:05 97.8 F 90 16 128/61 100 06/24/16 07:22 97.7 F 82 14 121/67 97 06/24/16 04:00 98.2 F 82 18 108/60 99 06/24/16 00:05 98.4 F 88 18 94/55 94 06/23/16 19:25 98.8 F 92 18 111/64 98 06/23/16 18:15 98.1 F 86 20 118/57 97 06/23/16 18:05 85 20 115/60 98 06/23/16 17:55 84 20 115/59 98 06/23/16 17:45 98.3 F 82 20 117/58 98 06/23/16 17:35 82 20 117/68 97 06/23/16 17:25 84 20 107/59 98 06/23/16 17:15 97.5 F L 84 20 94/51 94 Intake and Output 06/24/16 06/24/16 06/24/16 07:59 15:59 23:59 Intake Total 1100 / 1100 600 / 600 1000 / 1000 Output Total 60 / 60 350 / 350 Balance 1040 / 1040 250 / 250 1000 / 1000 Intake: IV Fluids 1100 / 1100 1000 / 1000 0.9 % Sodium Chloride 1, 1000 / 1000 1000 / 1000 000 ML @ 125 mls/hr IVC . Q8H JULIEN Rx#:[id number] Zosyn 3.375 GM In 100 / 100 Dextrose 5% (Minibag+) 100 ML 100 ML @ 25 mls/hr IVPB Q12H JULIEN Rx#: [id number] Oral 600 / 600 Output: Urine 350 / 350 Wound Drainage 60 / 60 Right Foot 60 / 60 Other: Meal Lunch Percent of Meal Consumed 100% Stool Size Small Stool Consistency loose liquid # Voids 1 Weight 90 kg Blood Glucose* 204 166 260 Patient Weight 06/24/16 23:59 Weight 90 kg - Exam Exam: General Examination: CONSTITUTIONAL: Alert, oriented, in no acute distress, non-toxic. EXTREMITIES: Cap refill immediate to left foot. No cap refill distal to midfoot area of right foot. Right foot warmth noted to MP joints of toes, toes cool to touch. Toes cyanotic. SKIN: Skin with decreased turgor, decreased subcutaneous tissue, skin thin and shiny with trophic changes associated with comorbidities as described in history.. NEUROLOGIC: Patient states she has minimal sensation with moderate touch bilaterally Right foot dressing removed, wound vac intact, skin assessed. 2 small incision areas noted to plantar aspect of foot, cleansed with saline, no issues or drainage to these areas noted at this time. Serosang drainage to wound vac cannister. Patient tolerated well. Left foot ulceration to plantar aspect of foot [id number]. Debridement of callused skin surrounding wound conducted at bedside to expose healthy tissue. Patient tolerated well. - Lab Result Diagrams: 06/24/16 06:07 06/24/16 06:07 Labs: Abnormal lab results WBC 12.1 K/mcL (4.3-11.1) H 06/24/16 06:07 RBC 3.46 M/mcL (3.82-4.97) L 06/24/16 06:07 Hgb 8.3 g/dL (11.5-15.4) L 06/24/16 06:07 Hct 27.9 % (35.3-44.9) L 06/24/16 06:07 MCV 80.6 fL (83.0-100.0) L 06/24/16 06:07 MCH 24.0 pg (28.0-33.3) L 06/24/16 06:07 MCHC 29.7 g/dL (31.6-35.5) L 06/24/16 06:07 RDW 17.1 % (11.5-14.5) H 06/24/16 06:07 Immature Gran % 4.8 % (0-4) H 06/24/16 06:07 Metamyelocytes % 2.0 % (0) H 06/18/16 15:47 Nucleated RBCs/100 WBC 0.2 /100 WBC (0) H 06/19/16 03:33 Reactive Lymphocytes Present (Not Present) A 06/19/16 03:33 Large Platelets Present (Not Present) A 06/23/16 05:20 Polychromasia 1+ (Not Present) A 06/23/16 05:20 Anisocytosis 1+ (Not Present) A 06/23/16 05:20 Microcytosis Present (Not Present) A 06/23/16 05:20 ESR 62 mm/hr (0-15) H 06/23/16 13:48 PT 16.2 Seconds (9.4-12.1) H 06/18/16 21:00 APTT 23.5 Seconds (26.0-36.0) L 06/18/16 21:00 D-Dimer 6782 ng/mLFEU (0-500) H 06/18/16 15:47 VBG pH 7.45 pH Units (7.32-7.42) H 06/18/16 17:53 VBG pCO2 33 mmHg (41-51) L 06/18/16 17:53 VBG pO2 89 mmHg (25-40) H 06/18/16 17:53 Sodium 135 mEq/L (136-145) L 06/24/16 06:07 BUN 23 mg/dL (7-20) H 06/24/16 06:07 Creatinine 1.87 mg/dL (0.57-1.11) H 06/24/16 06:07 Est GFR ( Amer) 34 (> 60) L 06/24/16 06:07 Est GFR (Non-Af Amer) 28 (> 60) L 06/24/16 06:07 Glucose 177 mg/dL (70-99) H 06/24/16 06:07 POC Glucose 260 (58-89) H 06/24/16 16:09 Hemoglobin A1c 12.6 % (-5.6) H 06/18/16 21:00 Iron 9 mcg/dL (50-170) L 06/22/16 03:34 % Saturation 6 % (15-50) L 06/22/16 03:34 Transferrin 111 mg/dL (180-382) L 06/22/16 03:34 Ferritin 1620 ng/ml (5-204) H 06/22/16 03:34 Direct Bilirubin 0.6 mg/dL (0.0-0.5) H 06/18/16 15:47 Creatine Kinase 7 Units/L (29-168) L 06/24/16 06:07 C-Reactive Protein 215 mg/L (Less than 5) H 06/24/16 06:07 B-Natriuretic Peptide 193 pg/mL (0-100) H 06/18/16 15:47 Serum Total Protein 5.4 g/dL (6.0-8.3) L 06/19/16 03:33 Albumin 1.9 g/dL (3.5-5.0) L 06/19/16 03:33 Albumin/Globulin Ratio 0.5 (1.1-2.2) L 06/19/16 03:33 Triglycerides 274 mg/dL (< 150) H 06/19/16 03:33 VLDL Cholesterol, Calc 55 mg/dL (< 31) H 06/19/16 03:33 HDL Cholesterol 11 mg/dL (40-59) L 06/19/16 03:33 Cholesterol/HDL Ratio 13.5 (0-4.9) H 06/19/16 03:33 Beta-Hydroxybutyric Acd > 2.00 mmol/L (0.02-0.27) H 06/18/16 15:47 Urine Clarity Cloudy (Clear) A 06/18/16 16:53 Ur Specific [place] > 1.030 (1.010-1.025) H 06/18/16 16:53 Urine Protein 30 mg/dL (Neg-Trace) H 06/18/16 16:53 Urine Glucose (UA) >=1000 mg/dL (Normal) H 06/18/16 16:53 Urine Ketones 40 mg/dL (Negative) H 06/18/16 16:53 Urine Blood Trace (Negative) H 06/18/16 16:53 Urine Bilirubin Moderate (Negative) H 06/18/16 16:53 Urine Microscopic WBC 15-30 per hpf (0-3) H 06/18/16 16:53 Ur Eosinophil Smear 4 % (None Seen) H 06/23/16 11:37 Ur Squamous Epith Cells Many per lpf (None-Few) H 06/18/16 16:53 Urine Bacteria Many per hpf (None-Few) H 06/18/16 16:53 Ur Culture Indicated? YES (NO) A 06/18/16 16:53 Microalb/Creat Ratio 80 (0-30) H 06/23/16 11:37 Vancomycin Trough 20.8 mcg/mL (10-20) H* 06/24/16 06:07 Microbiology, Last 48 Hours 06/23/16 16:45 Surgical Biopsy Culture - Preliminary Right Foot Consult Discharge Plan - Plan Referrals: Almas Ac DO [Primary Care Provider] - 06/27/16 3:00 pm (Please follow up as schedule...)
[2016-06-24] MEDS: Lactulose Oral Soln 20 GM/30 ML UDC PO SCH (21:34)
[2016-06-25 05:53] LABS: Hematocrit 28.6 % (35.3-44.9); Hemoglobin 8.5 g/dL (11.5-15.4); Lymphocytes # 1.6 K/mcL (0.6-4.6); Mean Corpuscular HGB Conc 29.7 g/dL (31.6-35.5); Mean Corpuscular Hemoglobin 24.4 pg (28.0-33.3); Mean Corpuscular Volume 81.9 fL (83.0-100.0); Mean Platelet Volume 9.9 fL (9.4-12.4); Monocytes # 0.7 K/mcL (0.0-1.3); Platelet Count 361 K/mcL (140-400); Red Blood Count 3.49 M/mcL (3.82-4.97); Red Cell Distribution Width 17.2 % (11.5-14.5)
[2016-06-25 06:04] LABS: Calcium 8.4 mg/dL (8.6-10.8); Potassium 4.4 mEq/L (3.5-4.5)
[2016-06-25 06:11] LABS: Eosinophils # 0.2 K/mcL (0.0-0.6); Neutrophils # 9.1 K/mcL (1.6-8.9); Platelet Estimate Normal (Normal)
[2016-06-25] MEDS: *HR* Heparin 5,000 UNIT/ML VIAL SQ SCH ×3 (06:28→21:14)
[2016-06-25] MEDS: Piperacillin/Tazobactam 3.375 GM in D5% in Water (Mini-Bag+) 100 ML IVPB SCH ×2 (08:21→16:28)
[2016-06-25] MEDS: Lactulose Oral Soln 20 GM/30 ML UDC PO SCH (08:21)
[2016-06-25] MEDS: Insulin LISPRO 300 UNITS/3 ML VIAL SQ SCH ×5 (08:23→20:57)
[2016-06-25] MEDS: *HR* OxyCODONE/APAP 5/325 TABLET PO PRN ×3 (08:29→21:14)
--- NOTE | 2016-06-25 09:44 | Nephrology Progress Note ---
Date of Encounter: 06/25/16 Time of Encounter: 09:42 - Assessment and Plan (1) Acute kidney injury Current Visit: Yes Status: Acute Multifactorial JULISSA with mild improvement in her renal function. Continue current management. No emergent need for dialysis. (2) Cellulitis Current Visit: Yes Status: Acute Continue antibiotics per primary team and ID. Qualifiers: Site of cellulitis: extremity Site of cellulitis of extremity: lower extremity Laterality: right Qualified Code(s): L03.115 - Cellulitis of right lower limb (3) Insulin dependent diabetes mellitus Current Visit: Yes Status: Chronic Per primary team. (4) Microcytic anemia Current Visit: Yes Status: Chronic Monitor for bleeding. Subjective Principal diagnosis: JULISSA Interval history: Patient asleep. Resting comfortably. Objective - Vital Signs Vital signs: Vital Signs Temp Pulse Resp BP Pulse Ox 06/25/16 07:13 98.5 F 85 17 152/70 91 06/25/16 04:00 98.1 F 84 16 117/63 93 06/24/16 23:44 98.0 F 86 16 118/68 94 06/24/16 20:23 98.1 F 90 16 119/67 91 06/24/16 15:17 97.9 F 85 14 121/65 98 06/24/16 12:05 97.8 F 90 16 128/61 100 Intake and Output 06/24/16 06/25/16 06/25/16 23:59 07:59 15:59 Intake Total 1340 / 1340 100 / 100 Output Total 650 / 650 Balance 690 / 690 100 / 100 Intake: IV Fluids 1100 / 1100 100 / 100 0.9 % Sodium Chloride 1, 1000 / 1000 000 ML @ 125 mls/hr IVC . Q8H JULIEN Rx#:[id number] Zosyn 3.375 GM In 100 / 100 100 / 100 Dextrose 5% (Minibag+) 100 ML 100 ML @ 25 mls/hr IVPB Q8HR JULIEN Rx#: [id number] Oral 240 / 240 Output: Urine 650 / 650 Other: Meal Dinner Percent of Meal Consumed 10% Stool Size Small Stool Consistency loose Stool Color Green # Bowel Movements 1 Weight 72.6 kg Blood Glucose* 217 307 Patient Weight 06/25/16 23:59 Weight 72.6 kg - General Appearance General appearance: Present: well-developed, well-nourished, chronically ill Neck: Present: supple Additional Comments: respirations are unlabored. Cardiology: Present: regular rate Additional Comments: asleep. spontaneous breathing noted. - Lab 06/25/16 05:06 06/25/16 05:06 Most recent lab results Calcium 8.4 mg/dL (8.6-10.8) L 06/25/16 05:06 Magnesium 1.9 mg/dL (1.6-2.6) 06/24/16 06:07 Urine Creatinine 35 mg/dL 06/23/16 11:37 Consult Discharge Plan - Plan Referrals: Almas Ac DO [Primary Care Provider] - 06/27/16 3:00 pm (Please follow up as schedule...)
--- NOTE | 2016-06-25 14:43 | Internal Med Progress Note ---
<Heladio Chavez - Last Filed: 06/25/16 14:41> Date of Encounter: 06/25/16 Time of Encounter: 10:35 - Assessment and plan (1) Sepsis Current Visit: Yes Status: Acute Assessment and plan: Etiology is likely secondary to the lower wound infections. Patient is status post I&D of the right foot. Toes of the foot are black. The cyanotic. Most likely she will need some form of amputation. Possibly BKA. We will defer to podiatry and infectious disease. Currently she is on vancomycin and Zosyn. Cultures of the lower extremities revealed Klebsiella, staph, and group B strep. Awaiting sensitivities. She did have a bone biopsy results which are pending. Appreciate the input of infectious disease and podiatry. (2) Osteomyelitis Current Visit: Yes Status: Acute Assessment and plan: Suspected. Awaiting biopsy of the bone. If in fact she does have osteomyelitis will possibly be able to taper antibiotics to sensitivity. (3) Diabetic foot ulcer Current Visit: Yes Status: Acute Assessment and plan: Continue wound care. Appreciate podiatry. (4) Diabetes Current Visit: Yes Status: Acute Assessment and plan: Currently she is above goal. I have increased her sliding scale to medium dose. We will continue to follow. (5) Liver mass Current Visit: Yes Status: Acute Assessment and plan: Possibly a hemangioma with review of CT of the abdomen is quite large. Takes of a significant portion of her liver. Does appear to have prominent vasculature in the diet from a CT runoff of the abdomen and pelvis. She is reportedly followed by general surgery at [facility]. However she is having significant ascites. May also possibly have concurrent cirrhosis. It may be worth having our GI specialists coming see her on Monday. Will also plan for paracentesis on Monday. If she becomes unstable or if she develops tense ascites will go ahead and get this weekend. However would like to get an INR prior to doing this procedure have ordered one for the morning. (6) Ascites Current Visit: Yes Status: Acute Assessment and plan: As stated above General plan on calculating a saag (7) Acute kidney injury Current Visit: Yes Status: Acute Assessment and plan: Multifactorial. This is a patient that has had sepsis. Also has had multiple scans with IV contrast. Additionally she has had eosinophils in the urine. Appreciate nephrology following along and will follow their recommendations. We did stop omeprazole and she had urine eosinophilia. (8) Peripheral artery disease Current Visit: Yes Status: Acute Assessment and plan: No need for surgical correction at this time she did have a normal JULIANA. 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 (11) Anemia Current Visit: Yes Status: Acute Assessment and plan: Microcytic anemia. She does have the elevated ferritin but this is likely falsely elevated in the presence of inflammation and infection. Does have a very low percent saturation. This most likely indicates iron deficiency. 10 give oral supplementation. I would not give IV iron at this time the setting of acute infection. We will also check B12 and folic acid. Hemoglobin is stable and she is asymptomatic. (12) Leukocytosis Current Visit: Yes Status: Acute Assessment and plan: Trending down. This is secondary to infection. (13) DVT prophylaxis Current Visit: Yes Status: Acute Assessment and plan: Subcutaneous heparin - Subjective Interval history: No major events overnight. Patient states that she is feeling better this AM. She denies any pain or discomfort at this time. She does admit to abdominal fullness but denies pain. She denies any breathing difficulties or chest pain. She denies any nausea vomiting or diarrhea. She has no further complaints or concerns. She does state that she was quite depressed about her medical conditions yesterday. However she states that she is in higher spirits today. - Constitutional Vitals: Temp Pulse Resp BP Pulse Ox 98.6 F 80 18 144/72 91 06/25/16 11:35 06/25/16 11:35 06/25/16 11:35 06/25/16 11:35 06/25/16 11:35 Exam: General: This is a well-developed well nourished 55-year-old female who is currently alert and orientated person place time and situation. Lying in bed appears to be comfortable in no acute distress at this time. HEENT: Head is normocephalic and atraumatic. Pupils equally round reactive to light and accommodation. Moist mucous membranes, dentition intact but poor. Neck is supple without mass or thyromegaly. There is no cervical submandibular or supraclavicular lymphadenopathy palpable on exam. Heart: Regular rate and rhythm without murmurs rubs or gallops. Lungs: Clear to auscultation bilaterally. She does have a normal effort of breathing and speaks in full sentences. Abdomen: The abdomen is obese, distended, sounds are positive in all quadrants. Her abdomen is quite protuberant. There is a fluid wave. No caput medusa. Musculoskeletal: She does have a deformity of the left hand appears to be ectrodactyly. Otherwise no acute deformities noted. Extremities: Her lower extremities are well wrapped. The right foot does have a wound VAC attached. The toes are dark purple and somewhat blackened. From medical record this appears to be unchanged from yesterday. There is no pain with palpation of the foot. Toes are warm. The leg is mildly erythematous there is some wrinkling of the skin there is no pain with palpation of the calf. The left leg is well wrapped without any shadowing. Integument: No rashes or lesions noted other than stated above. Psych: Does have somewhat of a depressed affect. She is alert and orientated. She does cooperate with history and physical. Internal Medicine: Result - Labs CBC & Chem 7: 06/25/16 05:06 06/25/16 05:06 Labs: Short CBC 06/25/16 Range/Units 05:06 WBC 11.6 H (4.3-11.1) K/mcL Hgb 8.5 L (11.5-15.4) g/dL Hct 28.6 L (35.3-44.9) % Plt Count 361 (140-400) K/mcL Neutrophils # 9.1 H (1.6-8.9) K/mcL BMP 06/25/16 05:06 Sodium 138 Potassium 4.4 Chloride 107 Carbon Dioxide 22 BUN 23 H Creatinine 1.86 H Glucose 282 H Calcium 8.4 L - ABG Interpretation ABG results: PT/INR, D-dimer PT 16.2 Seconds (9.4-12.1) H 06/18/16 21:00 D-Dimer 6782 ng/mLFEU (0-500) H 06/18/16 15:47 Consult Discharge Plan - Plan Referrals: Almas cA DO [Primary Care Provider] - 06/27/16 3:00 pm (Please follow up as schedule...) <Dilshad Kelly Last Filed: 06/25/16 17:47> Date of Encounter: 06/25/16 - Constitutional Vitals: Temp Pulse Resp BP Pulse Ox 98.1 F 82 18 156/74 91 06/25/16 16:46 06/25/16 16:46 06/25/16 16:46 06/25/16 16:46 06/25/16 16:46 Internal Medicine: Result - Labs CBC & Chem 7: 06/25/16 05:06 06/25/16 05:06 Labs: Short CBC 06/25/16 Range/Units 05:06 WBC 11.6 H (4.3-11.1) K/mcL Hgb 8.5 L (11.5-15.4) g/dL Hct 28.6 L (35.3-44.9) % Plt Count 361 (140-400) K/mcL Neutrophils # 9.1 H (1.6-8.9) K/mcL BMP 06/25/16 05:06 Sodium 138 Potassium 4.4 Chloride 107 Carbon Dioxide 22 BUN 23 H Creatinine 1.86 H Glucose 282 H Calcium 8.4 L - ABG Interpretation ABG results: PT/INR, D-dimer PT 16.2 Seconds (9.4-12.1) H 06/18/16 21:00 D-Dimer 6782 ng/mLFEU (0-500) H 06/18/16 15:47 - Attending Attestation I examined this patient and my medical decision-making was reviewed with the BODY SANDER/PA/Advanced Practice Nurse/Resident Physician. I agree with the documented findings, disposition and treatment plan as described except to the extent set forth below. IV antibiotics, POdiatry and ID following. Agree with DR. Chavez. C diff testing. Check inr.
[2016-06-25] MEDS: 0.9 % Sodium Chloride 1,000 ML IVC SCH (14:57)
[2016-06-25] MEDS ORDERED: Vancomycin 500 MG in D5% in Water (Mini-Bag+) 100 ML IVPB ONE (15:00)
[2016-06-25] MEDS: Vancomycin 500 MG in D5% in Water (Mini-Bag+) 100 ML IVPB ONE ×2 (15:15→15:20)
[2016-06-26] MEDS: Piperacillin/Tazobactam 3.375 GM in D5% in Water (Mini-Bag+) 100 ML IVPB SCH ×4 (00:35→23:41)
[2016-06-26] MEDS: *HR* OxyCODONE/APAP 5/325 TABLET PO PRN ×3 (05:39→23:42)
[2016-06-26] MEDS: *HR* Heparin 5,000 UNIT/ML VIAL SQ SCH ×3 (05:40→22:01)
[2016-06-26 05:53] LABS: Hematocrit 29.1 % (35.3-44.9); Hemoglobin 8.5 g/dL (11.5-15.4); Mean Corpuscular HGB Conc 29.2 g/dL (31.6-35.5); Mean Corpuscular Hemoglobin 24.1 pg (28.0-33.3); Mean Corpuscular Volume 82.4 fL (83.0-100.0); Mean Platelet Volume 9.8 fL (9.4-12.4); Platelet Count 385 K/mcL (140-400); Red Blood Count 3.53 M/mcL (3.82-4.97); Red Cell Distribution Width 17.2 % (11.5-14.5)
[2016-06-26 05:56] LABS: INR 1.3; Prothrombin Time 14.6 Seconds (9.4-12.1)
[2016-06-26 06:12] LABS: Albumin/Globulin Ratio 0.4 (1.1-2.2); Alkaline Phosphatase 108 Units/L (38-126); Aspartate Amino Transferase 7 Units/L (5-34); BUN/Creatinine Ratio 13 (6-26); Bilirubin,Direct 0.2 mg/dL (0.0-0.5); Bilirubin,Indirect 0.2 mg/dL (0.0-1.2); Bilirubin,Total 0.4 mg/dL (0.2-1.2); Blood Urea Nitrogen 22 mg/dL (7-20); Calcium 8.2 mg/dL (8.6-10.8); Carbon Dioxide 20 mEq/L (19-29); Chloride 107 mEq/L (98-109); Globulin 4.1 g/dL (2.4-3.5); Glucose 310 mg/dL (70-99); Osmolality,Calculated 299 (280-300); Potassium 4.4 mEq/L (3.5-4.5); Sodium 137 mEq/L (136-145); Total Protein 5.8 g/dL (6.0-8.3); eGFR For African Americans 36 (> 60); eGFR For Non-African Americans 30 (> 60)
[2016-06-26 06:19] LABS: Alanine Aminotransferase < 6 Units/L (0-55); Albumin 1.7 g/dL (3.5-5.0)
[2016-06-26 06:26] LABS: Lymphocytes # 2.6 K/mcL (0.6-4.6); Monocytes # 0.5 K/mcL (0.0-1.3); Neutrophils # 8.3 K/mcL (1.6-8.9); Platelet Estimate Normal (Normal)
[2016-06-26 06:27] LABS: Anisocytosis 1+ (Not Present)
[2016-06-26 06:39] LABS: Folate 7.7 ng/mL (7.0-31.4)
[2016-06-26] MEDS: Insulin LISPRO 300 UNITS/3 ML VIAL SQ SCH ×4 (08:08→21:30)
--- NOTE | 2016-06-26 08:17 | Internal Med Progress Note ---
<Heladio Chavez - Last Filed: 06/26/16 08:26> Date of Encounter: 06/26/16 Time of Encounter: 08:15 - Assessment and plan (1) Sepsis Current Visit: Yes Status: Acute Assessment and plan: Etiology is likely secondary to the lower wound infections. Patient is status post I&D of the right foot. Toes of the foot are black cold and cyanotic. I think she will require at least an amputation of the toes and Possibly a BKA. We will defer to podiatry. Currently she is on vancomycin and Zosyn. Cultures of the lower extremities revealed Klebsiella, staph, and group B strep. Awaiting sensitivities. She did have a bone biopsy results which are pending. currently she has a non toxic appearance and is hemodynamically stable. Appreciate the input of infectious disease and podiatry. Qualifiers: Qualified Code(s): A41.9 - Sepsis, unspecified organism (2) Osteomyelitis Current Visit: Yes Status: Suspected Assessment and plan: Suspected. Awaiting biopsy of the bone. If in fact she does have osteomyelitis will possibly be able to taper antibiotics to sensitivity. Qualifiers: Qualified Code(s): M86.9 - Osteomyelitis, unspecified (3) Diabetic foot ulcer Current Visit: Yes Status: Acute Assessment and plan: Continue wound care. Appreciate podiatry. Qualifiers: Qualified Code(s): E11.621 - Type 2 diabetes mellitus with foot ulcer; L97.509 - Non-pressure chronic ulcer of other part of unspecified foot with unspecified severity (4) Diabetes Current Visit: Yes Status: Acute Assessment and plan: Nataly needs glycemic control to help with wound healing and prevent recurring infections. . currently she is above goal. I will increase her sliding scale to high dose. May need to add some basal insulin as well. Will hold off in case she goes to surgery today or in the AM. Qualifiers: Qualified Code(s): E11.9 - Type 2 diabetes mellitus without complications (5) Liver mass Current Visit: Yes Status: Acute Assessment and plan: Possibly a hemangioma with review of CT of the abdomen is quite large. Takes of a significant portion of her liver. Does appear to have prominent vasculature when viewing the CT runoff of the abdomen and pelvis. She is reportedly followed by general surgery at [facility]. However she is having significant ascites. May also possibly have concurrent cirrhosis. It may be worth having our GI specialists coming see her on Monday. Will also plan for paracentesis tomorrow. If she becomes unstable or if she develops tense ascites will go ahead and perform today. (6) Ascites Current Visit: Yes Status: Acute Assessment and plan: As stated above We will also check a hepatitis panel. Qualifiers: Qualified Code(s): R18.8 - Other ascites (7) Acute kidney injury Current Visit: Yes Status: Acute Assessment and plan: Multifactorial. This is a patient that has had sepsis. Also has had multiple scans with IV contrast. Additionally she has had eosinophils in the urine. Appreciate nephrology following along and will follow their recommendations. We did stop omeprazole and she had urine eosinophilia. improving. (8) Peripheral artery disease Current Visit: Yes Status: Acute Assessment and plan: No need for surgical correction at this time she did have a normal JULIANA. 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 (11) Anemia Current Visit: Yes Status: Acute Assessment and plan: Microcytic anemia. She does have the elevated ferritin but this is likely falsely elevated in the presence of inflammation and infection. Does have a very low percent saturation. This most likely indicates iron deficiency. continue to give oral supplementation. I would not give IV iron at this time the setting of acute infection. B12 and folic acid pending . Hemoglobin is stable and she is asymptomatic. Qualifiers: Qualified Code(s): D64.9 - Anemia, unspecified (12) Leukocytosis Current Visit: Yes Status: Acute Assessment and plan: Trending down. This is secondary to infection. Qualifiers: Qualified Code(s): D72.829 - Elevated white blood cell count, unspecified (13) DVT prophylaxis Current Visit: Yes Status: Acute Assessment and plan: Subcutaneous heparin - Subjective Interval history: No major events overnight. She did have a dressing change this AM. She states that her pain is well controlled. she states that she is in better spirits this morning. she denies abdominal pain N/V/D but dose admit to abdominal fullness. She denies any chest pain, syncope or presyncope. She has no further complaints or concerns at this time. - Constitutional Vitals: Temp Pulse Resp BP Pulse Ox 98.1 F 85 17 125/66 95 06/26/16 06:59 06/26/16 06:59 06/26/16 06:59 06/26/16 06:59 06/26/16 06:59 General appearance: Present: cooperative, A&O X 3, answers questions appropriately - Head Head exam: Present: atraumatic, normocephalic - Eye Eye exam: Present: PERRL, conjuntiva pink, sclera anicteric Pupils: Present: PERRL - Neck Neck exam general surgery: Present: supple, trachea midline. Absent: lymphadenopathy - Respiratory Respiratory exam: Absent: accessory muscle use, rales, rhonchi, wheezes Additional comments: Mild crackles at the bases - Cardiovascular Cardiovascular exam: Present: RRR, +S1, +S2. Absent: diastolic murmur, gallop, rubs, systolic murmur - GI/Abdominal GI/Abdominal exam: Present: distended, normal bowel sounds, soft, no peritoneal signs. Absent: diminished bowel sounds, tenderness Additional comments: ascites with fluid splash present. - Extremities Exam Extremities exam: Present: pedal edema Additional comments: the feet are clean and well dressed without shadowing. She has bilateral edema. erythema of the right leg is improving. Internal Medicine: Result - Labs CBC & Chem 7: 06/26/16 05:12 06/26/16 05:12 Labs: Short CBC 06/26/16 Range/Units 05:12 WBC 11.9 H (4.3-11.1) K/mcL Hgb 8.5 L (11.5-15.4) g/dL Hct 29.1 L (35.3-44.9) % Plt Count 385 (140-400) K/mcL Neutrophils # 8.3 (1.6-8.9) K/mcL BMP 06/26/16 05:12 Sodium 137 Potassium 4.4 Chloride 107 Carbon Dioxide 20 BUN 22 H Creatinine 1.76 H Glucose 310 H Calcium 8.2 L Liver Function 06/26/16 Range/Units 05:12 Total Bilirubin 0.4 (0.2-1.2) mg/dL Direct Bilirubin 0.2 (0.0-0.5) mg/dL AST 7 (5-34) Units/L ALT < 6 (0-55) Units/L Alkaline Phosphatase 108 (38-126) Units/L Albumin 1.7 L (3.5-5.0) g/dL - ABG Interpretation ABG results: PT/INR, D-dimer PT 14.6 Seconds (9.4-12.1) H 06/26/16 05:12 D-Dimer 6782 ng/mLFEU (0-500) H 06/18/16 15:47 Consult Discharge Plan - Plan Referrals: Almas Ac DO [Primary Care Provider] - 06/27/16 3:00 pm (Please follow up as schedule...) <Dilshad Kelly - Last Filed: 06/26/16 11:05> Date of Encounter: 06/26/16 - Constitutional Vitals: Temp Pulse Resp BP Pulse Ox 98.1 F 85 17 125/66 95 06/26/16 06:59 06/26/16 06:59 06/26/16 06:59 06/26/16 06:59 06/26/16 06:59 Internal Medicine: Result - Labs CBC & Chem 7: 06/26/16 05:12 06/26/16 05:12 Labs: Short CBC 06/26/16 Range/Units 05:12 WBC 11.9 H (4.3-11.1) K/mcL Hgb 8.5 L (11.5-15.4) g/dL Hct 29.1 L (35.3-44.9) % Plt Count 385 (140-400) K/mcL Neutrophils # 8.3 (1.6-8.9) K/mcL BMP 06/26/16 05:12 Sodium 137 Potassium 4.4 Chloride 107 Carbon Dioxide 20 BUN 22 H Creatinine 1.76 H Glucose 310 H Calcium 8.2 L Liver Function 06/26/16 Range/Units 05:12 Total Bilirubin 0.4 (0.2-1.2) mg/dL Direct Bilirubin 0.2 (0.0-0.5) mg/dL AST 7 (5-34) Units/L ALT < 6 (0-55) Units/L Alkaline Phosphatase 108 (38-126) Units/L Albumin 1.7 L (3.5-5.0) g/dL - ABG Interpretation ABG results: PT/INR, D-dimer PT 14.6 Seconds (9.4-12.1) H 06/26/16 05:12 D-Dimer 6782 ng/mLFEU (0-500) H 06/18/16 15:47 - Attending Attestation I examined this patient and my medical decision-making was reviewed with the SERVICE CREW LEADER/PA/Advanced Practice Nurse/Resident Physician. I agree with the documented findings, disposition and treatment plan as described except to the extent set forth below. IV antibiotics, id and podiatry following.
--- NOTE | 2016-06-26 12:16 | Nephrology Progress Note ---
Date of Encounter: 06/26/16 Time of Encounter: 12:14 - Assessment and Plan (1) Acute kidney injury Current Visit: Yes Status: Acute Multifactorial JULISSA with mild improvement in her renal function. Continue current management. No emergent need for dialysis. I anticipate recovery. (2) Cellulitis Current Visit: Yes Status: Acute Continue antibiotics per primary team and ID. Qualifiers: Site of cellulitis: extremity Site of cellulitis of extremity: lower extremity Laterality: right Qualified Code(s): L03.115 - Cellulitis of right lower limb (3) Insulin dependent diabetes mellitus Current Visit: Yes Status: Chronic Per primary team. (4) Microcytic anemia Current Visit: Yes Status: Chronic Monitor for bleeding. Iron saturation is low, but ferritin is extremely high. Will hold off on adding iron. Subjective Principal diagnosis: JULISSA Interval history: Patient awake. No new complaints. She denies pain. Objective - Vital Signs Vital signs: Vital Signs Temp Pulse Resp BP Pulse Ox 06/26/16 06:59 98.1 F 85 17 125/66 95 06/26/16 04:17 97.9 F 87 16 127/65 98 06/26/16 00:05 98.0 F 85 16 115/61 99 06/25/16 20:47 93 06/25/16 20:22 97.9 F 87 16 114/60 93 06/25/16 16:46 98.1 F 82 18 156/74 91 Intake and Output 06/25/16 06/26/16 06/26/16 23:59 07:59 15:59 Intake Total 0 / 0 100 / 100 Output Total 60 / 60 0 / 0 Balance -60 / -60 100 / 100 Intake: IV Fluids 0 / 0 100 / 100 Zosyn 3.375 GM In 0 / 0 100 / 100 Dextrose 5% (Minibag+) 100 ML 100 ML @ 25 mls/hr IVPB Q8HR [facility] Rx#: [id number] Oral 0 / 0 0 / 0 Output: Urine 0 / 0 0 / 0 Wound Drainage 60 / 60 Right Foot 60 / 60 Other: Stool Size Small Stool Consistency loose Stool Color Brown Yellow # Voids 1 # Bowel Movements 1 # Bowel Movement Diapers 1 Weight 98.3 kg Blood Glucose* 169 311 273 Patient Weight 06/26/16 23:59 Weight 98.3 kg - General Appearance General appearance: Present: well-developed, well-nourished EENT: Present: ATNC Neck: Present: supple Cardiology: Present: edema, regular rate Gastrointestinal: Present: no tenderness Integumentary: Present: warm and dry Neurologic: Present: alert and oriented x3 Psychiatric: Present: mood/affect appropriate - Lab 06/26/16 05:12 06/26/16 05:12 Most recent lab results Calcium 8.2 mg/dL (8.6-10.8) L 06/26/16 05:12 Magnesium 1.9 mg/dL (1.6-2.6) 06/24/16 06:07 Urine Creatinine 35 mg/dL 06/23/16 11:37 Consult Discharge Plan - Plan Referrals: Almas Ac DO [Primary Care Provider] - 06/27/16 3:00 pm (Please follow up as schedule...)
[2016-06-26] MEDS ORDERED: Vancomycin 750 MG in D5% in Water 250 ML IVPB SCH (17:00)
--- NOTE | 2016-06-26 21:51 | Podiatry Progress Note ---
Date of Encounter: 06/25/16 Time of Encounter: 11:49 - Assessment and Plan (1) Foot ulcer Current Visit: No Status: Acute At this time we will continue the wound VAC. We will monitor the foot for any new changes. Qualifiers: Laterality: right Non-pressure ulcer stage: with fat layer exposed Qualified Code(s): L97.512 - Non-pressure chronic ulcer of other part of right foot with fat layer exposed Subjective Principal diagnosis: JULISSA Interval history: Patient relates little changes to her feet. Patient denies any new pedal complaints. Patient relates that overall the swelling and pain has gone down in her right foot. Objective - Vital Signs Vital Signs: Vital Signs Temp Pulse Resp BP Pulse Ox 06/26/16 18:38 98.1 F 86 18 132/61 98 06/26/16 16:21 98.2 F 88 18 124/70 96 06/26/16 06:59 98.1 F 85 17 125/66 95 06/26/16 04: 97.9 F 87 16 127/65 98 06/26/16 00:05 98.0 F 85 16 115/61 99 Intake and Output 06/26/16 06/26/16 06/26/16 07:59 15:59 23:59 Intake Total 100 / 100 100 / 100 Output Total 0 / 0 Balance 100 / 100 100 / 100 Intake: IV Fluids 100 / 100 100 / 100 Zosyn 3.375 GM In 100 / 100 100 / 100 Dextrose 5% (Minibag+) 100 ML 100 ML @ 25 mls/hr IVPB Q8HR [facility] Rx#: [id number] Oral 0 / 0 Output: Urine 0 / 0 Other: Stool Size Small Stool Consistency loose Stool Color Brown Yellow # Voids 1 # Bowel Movements 1 # Bowel Movement Diapers 1 Weight 98.3 kg Blood Glucose* 311 273 155 Patient Weight 06/26/16 23:59 Weight 98.3 kg - Exam Exam: Wound VAC is intact to the right foot. Capillary fill time intact to the left foot. No capillary fill time intact to the right foot. The right foot appears to be ischemic. No new proximally ascending erythema. Sensation decreased to bilateral lower extremities consistent with peripheral neuropathy. - Lab Result Diagrams: 06/26/16 05:12 06/26/16 05:12 Labs: Abnormal lab results WBC 11.9 K/mcL (4.3-11.1) H 06/26/16 05:12 RBC 3.53 M/mcL (3.82-4.97) L 06/26/16 05:12 Hgb 8.5 g/dL (11.5-15.4) L 06/26/16 05:12 Hct 29.1 % (35.3-44.9) L 06/26/16 05:12 MCV 82.4 fL (83.0-100.0) L 06/26/16 05:12 MCH 24.1 pg (28.0-33.3) L 06/26/16 05:12 MCHC 29.2 g/dL (31.6-35.5) L 06/26/16 05:12 RDW 17.2 % (11.5-14.5) H 06/26/16 05:12 Immature Gran % 4.8 % (0-4) H 06/24/16 06:07 Band Neutrophils % 8.0 % (0-4) H 06/25/16 05:06 Metamyelocytes % 2.0 % (0) H 06/18/16 15:47 Myelocytes % 2.0 % (0) H 06/26/16 05:12 Promyelocytes % 2.0 % (0) H 06/26/16 05:12 Nucleated RBCs/100 WBC 0.2 /100 WBC (0) H 06/19/16 03:33 Reactive Lymphocytes Present (Not Present) A 06/19/16 03:33 Large Platelets Present (Not Present) A 06/23/16 05:20 Polychromasia 1+ (Not Present) A 06/23/16 05:20 Anisocytosis 1+ (Not Present) A 06/26/16 05:12 Microcytosis Present (Not Present) A 06/23/16 05:20 ESR 62 mm/hr (0-15) H 06/23/16 13:48 PT 14.6 Seconds (9.4-12.1) H 06/26/16 05:12 APTT 23.5 Seconds (26.0-36.0) L 06/18/16 21:00 D-Dimer 6782 ng/mLFEU (0-500) H 06/18/16 15:47 VBG pH 7.45 pH Units (7.32-7.42) H 06/18/16 17:53 VBG pCO2 33 mmHg (41-51) L 06/18/16 17:53 VBG pO2 89 mmHg (25-40) H 06/18/16 17:53 BUN 22 mg/dL (7-20) H 06/26/16 05:12 Creatinine 1.76 mg/dL (0.57-1.11) H 06/26/16 05:12 Est GFR ( Amer) 36 (> 60) L 06/26/16 05:12 Est GFR (Non-Af Amer) 30 (> 60) L 06/26/16 05:12 Glucose 310 mg/dL (70-99) H 06/26/16 05:12 POC Glucose 311 (58-89) H 06/26/16 07:33 Hemoglobin A1c 12.6 % (-5.6) H 06/18/16 21:00 Calcium 8.2 mg/dL (8.6-10.8) L 06/26/16 05:12 Iron 9 mcg/dL (50-170) L 06/22/16 03:34 % Saturation 6 % (15-50) L 06/22/16 03:34 Transferrin 111 mg/dL (180-382) L 06/22/16 03:34 Ferritin 1620 ng/ml (5-204) H 06/22/16 03:34 Creatine Kinase 7 Units/L (29-168) L 06/24/16 06:07 C-Reactive Protein 215 mg/L (Less than 5) H 06/24/16 06:07 B-Natriuretic Peptide 193 pg/mL (0-100) H 06/18/16 15:47 Serum Total Protein 5.8 g/dL (6.0-8.3) L 06/26/16 05:12 Albumin 1.7 g/dL (3.5-5.0) L 06/26/16 05:12 Globulin 4.1 g/dL (2.4-3.5) H 06/26/16 05:12 Albumin/Globulin Ratio 0.4 (1.1-2.2) L 06/26/16 05:12 Triglycerides 274 mg/dL (< 150) H 06/19/16 03:33 VLDL Cholesterol, Calc 55 mg/dL (< 31) H 06/19/16 03:33 HDL Cholesterol 11 mg/dL (40-59) L 06/19/16 03:33 Cholesterol/HDL Ratio 13.5 (0-4.9) H 06/19/16 03:33 Beta-Hydroxybutyric Acd > 2.00 mmol/L (0.02-0.27) H 06/18/16 15:47 Urine Clarity Cloudy (Clear) A 06/18/16 16:53 Ur Specific [place] > 1.030 (1.010-1.025) H 06/18/16 16:53 Urine Protein 30 mg/dL (Neg-Trace) H 06/18/16 16:53 Urine Glucose (UA) >=1000 mg/dL (Normal) H 06/18/16 16:53 Urine Ketones 40 mg/dL (Negative) H 06/18/16 16:53 Urine Blood Trace (Negative) H 06/18/16 16:53 Urine Bilirubin Moderate (Negative) H 06/18/16 16:53 Urine Microscopic WBC 15-30 per hpf (0-3) H 06/18/16 16:53 Ur Eosinophil Smear 4 % (None Seen) H 06/23/16 11:37 Ur Squamous Epith Cells Many per lpf (None-Few) H 06/18/16 16:53 Urine Bacteria Many per hpf (None-Few) H 06/18/16 16:53 Ur Culture Indicated? YES (NO) A 06/18/16 16:53 Microalb/Creat Ratio 80 (0-30) H 06/23/16 11:37 Microbiology, Last 48 Hours 06/23/16 16:45 Surgical Biopsy Culture - Preliminary Right Foot 06/23/16 16:35 Wound Culture - Final Right Foot Strep agalactiae - (Group B) 06/23/16 16:40 Wound Culture - Final Right Foot Strep agalactiae - (Group B) Consult Discharge Plan - Plan Referrals: Almas Ac DO [Primary Care Provider] - 06/27/16 3:00 pm (Please follow up as schedule...)
--- NOTE | 2016-06-26 21:53 | Podiatry Progress Note ---
Date of Encounter: 06/26/16 Time of Encounter: 21:52 - Assessment and Plan (1) Foot ulcer Current Visit: No Status: Acute At this time we will continue the wound VAC. We will monitor the foot for any new changes. Monday we will consider advancing the plan as needed per Dr. Lenz /Bridget. Qualifiers: Laterality: right Non-pressure ulcer stage: with fat layer exposed Qualified Code(s): L97.512 - Non-pressure chronic ulcer of other part of right foot with fat layer exposed Subjective Principal diagnosis: JULISSA Interval history: Patient relates little changes to her feet. Patient denies any new pedal complaints. Patient relates that overall the swelling and pain has gone down in her right foot. Patient relates that she thinks her right foot may be getting better but states that it may be just decreased pain that makes her feel better. Objective - Vital Signs Vital Signs: Vital Signs Temp Pulse Resp BP Pulse Ox 06/26/16 18:38 98.1 F 86 18 132/61 98 06/26/16 16:21 98.2 F 88 18 124/70 96 06/26/16 06:59 98.1 F 85 17 125/66 95 06/26/16 04:17 97.9 F 87 16 127/65 98 06/26/16 00:05 98.0 F 85 16 115/61 99 Intake and Output 06/26/16 06/26/16 06/26/16 07:59 15:59 23:59 Intake Total 100 / 100 100 / 100 Output Total 0 / 0 Balance 100 / 100 100 / 100 Intake: IV Fluids 100 / 100 100 / 100 Zosyn 3.375 GM In 100 / 100 100 / 100 Dextrose 5% (Minibag+) 100 ML 100 ML @ 25 mls/hr IVPB Q8HR [facility] Rx#: [id number] Oral 0 / 0 Output: Urine 0 / 0 Other: Stool Size Small Stool Consistency loose Stool Color Brown Yellow # Voids 1 # Bowel Movements 1 # Bowel Movement Diapers 1 Weight 98.3 kg Blood Glucose* 311 273 155 Patient Weight 06/26/16 23:59 Weight 98.3 kg - Exam Exam: Wound VAC is still intact. No new open lesions, abrasions, or ulcerations. No approximately ascending lymphangitis or erythema. Capillary fill time not intact to the right foot. Sensations significantly diminished consistent with peripheral neuropathy. - Lab Result Diagrams: 06/26/16 05:12 06/26/16 05:12 Labs: Abnormal lab results WBC 11.9 K/mcL (4.3-11.1) H 06/26/16 05:12 RBC 3.53 M/mcL (3.82-4.97) L 06/26/16 05:12 Hgb 8.5 g/dL (11.5-15.4) L 06/26/16 05:12 Hct 29.1 % (35.3-44.9) L 06/26/16 05:12 MCV 82.4 fL (83.0-100.0) L 06/26/16 05:12 MCH 24.1 pg (28.0-33.3) L 06/26/16 05:12 MCHC 29.2 g/dL (31.6-35.5) L 06/26/16 05:12 RDW 17.2 % (11.5-14.5) H 06/26/16 05:12 Immature Gran % 4.8 % (0-4) H 06/24/16 06:07 Band Neutrophils % 8.0 % (0-4) H 06/25/16 05:06 Metamyelocytes % 2.0 % (0) H 06/18/16 15:47 Myelocytes % 2.0 % (0) H 06/26/16 05:12 Promyelocytes % 2.0 % (0) H 06/26/16 05:12 Nucleated RBCs/100 WBC 0.2 /100 WBC (0) H 06/19/16 03:33 Reactive Lymphocytes Present (Not Present) A 06/19/16 03:33 Large Platelets Present (Not Present) A 06/23/16 05:20 Polychromasia 1+ (Not Present) A 06/23/16 05:20 Anisocytosis 1+ (Not Present) A 06/26/16 05:12 Microcytosis Present (Not Present) A 06/23/16 05:20 ESR 62 mm/hr (0-15) H 06/23/16 13:48 PT 14.6 Seconds (9.4-12.1) H 06/26/16 05:12 APTT 23.5 Seconds (26.0-36.0) L 06/18/16 21:00 D-Dimer 6782 ng/mLFEU (0-500) H 06/18/16 15:47 VBG pH 7.45 pH Units (7.32-7.42) H 06/18/16 17:53 VBG pCO2 33 mmHg (41-51) L 06/18/16 17:53 VBG pO2 89 mmHg (25-40) H 06/18/16 17:53 BUN 22 mg/dL (7-20) H 06/26/16 05:12 Creatinine 1.76 mg/dL (0.57-1.11) H 06/26/16 05:12 Est GFR ( Amer) 36 (> 60) L 06/26/16 05:12 Est GFR (Non-Af Amer) 30 (> 60) L 06/26/16 05:12 Glucose 310 mg/dL (70-99) H 06/26/16 05:12 POC Glucose 311 (58-89) H 06/26/16 07:33 Hemoglobin A1c 12.6 % (-5.6) H 06/18/16 21:00 Calcium 8.2 mg/dL (8.6-10.8) L 06/26/16 05:12 Iron 9 mcg/dL (50-170) L 06/22/16 03:34 % Saturation 6 % (15-50) L 06/22/16 03:34 Transferrin 111 mg/dL (180-382) L 06/22/16 03:34 Ferritin 1620 ng/ml (5-204) H 06/22/16 03:34 Creatine Kinase 7 Units/L (29-168) L 06/24/16 06:07 C-Reactive Protein 215 mg/L (Less than 5) H 06/24/16 06:07 B-Natriuretic Peptide 193 pg/mL (0-100) H 06/18/16 15:47 Serum Total Protein 5.8 g/dL (6.0-8.3) L 06/26/16 05:12 Albumin 1.7 g/dL (3.5-5.0) L 06/26/16 05:12 Globulin 4.1 g/dL (2.4-3.5) H 06/26/16 05:12 Albumin/Globulin Ratio 0.4 (1.1-2.2) L 06/26/16 05:12 Triglycerides 274 mg/dL (< 150) H 06/19/16 03:33 VLDL Cholesterol, Calc 55 mg/dL (< 31) H 06/19/16 03:33 HDL Cholesterol 11 mg/dL (40-59) L 06/19/16 03:33 Cholesterol/HDL Ratio 13.5 (0-4.9) H 06/19/16 03:33 Beta-Hydroxybutyric Acd > 2.00 mmol/L (0.02-0.27) H 06/18/16 15:47 Urine Clarity Cloudy (Clear) A 06/18/16 16:53 Ur Specific Junction > 1.030 (1.010-1.025) H 06/18/16 16:53 Urine Protein 30 mg/dL (Neg-Trace) H 06/18/16 16:53 Urine Glucose (UA) >=1000 mg/dL (Normal) H 06/18/16 16:53 Urine Ketones 40 mg/dL (Negative) H 06/18/16 16:53 Urine Blood Trace (Negative) H 06/18/16 16:53 Urine Bilirubin Moderate (Negative) H 06/18/16 16:53 Urine Microscopic WBC 15-30 per hpf (0-3) H 06/18/16 16:53 Ur Eosinophil Smear 4 % (None Seen) H 06/23/16 11:37 Ur Squamous Epith Cells Many per lpf (None-Few) H 06/18/16 16:53 Urine Bacteria Many per hpf (None-Few) H 06/18/16 16:53 Ur Culture Indicated? YES (NO) A 06/18/16 16:53 Microalb/Creat Ratio 80 (0-30) H 06/23/16 11:37 Microbiology, Last 48 Hours 06/23/16 16:45 Surgical Biopsy Culture - Preliminary Right Foot 06/23/16 16:35 Wound Culture - Final Right Foot Strep agalactiae - (Group B) 06/23/16 16:40 Wound Culture - Final Right Foot Strep agalactiae - (Group B) Consult Discharge Plan - Plan Referrals: Almas Ac DO [Primary Care Provider] - 06/27/16 3:00 pm (Please follow up as schedule...)
[2016-06-27] MEDS: *HR* Heparin 5,000 UNIT/ML VIAL SQ SCH ×3 (05:31→20:45)
[2016-06-27] MEDS: Piperacillin/Tazobactam 3.375 GM in D5% in Water (Mini-Bag+) 100 ML IVPB SCH (07:55)
[2016-06-27] MEDS: Insulin LISPRO 300 UNITS/3 ML VIAL SQ SCH ×4 (07:56→20:46)
[2016-06-27] MEDS: *HR* OxyCODONE/APAP 5/325 TABLET PO PRN ×2 (08:01→16:30)
[2016-06-27 09:25] LABS: Hematocrit 28.3 % (35.3-44.9); Hemoglobin 8.4 g/dL (11.5-15.4); Mean Corpuscular HGB Conc 29.7 g/dL (31.6-35.5); Mean Corpuscular Hemoglobin 24.3 pg (28.0-33.3); Mean Corpuscular Volume 81.8 fL (83.0-100.0); Mean Platelet Volume 9.3 fL (9.4-12.4); Platelet Count 387 K/mcL (140-400); Red Blood Count 3.46 M/mcL (3.82-4.97); Red Cell Distribution Width 17.1 % (11.5-14.5)
[2016-06-27] MEDS ORDERED: Aminoglycoside Consult 1 EACH MC ONE (09:34)
[2016-06-27 09:40] LABS: Albumin/Globulin Ratio 0.4 (1.1-2.2); Alkaline Phosphatase 108 Units/L (38-126); Aspartate Amino Transferase 6 Units/L (5-34); BUN/Creatinine Ratio 13 (6-26); Bilirubin,Total 0.5 mg/dL (0.2-1.2); Blood Urea Nitrogen 22 mg/dL (7-20); Calcium 8.5 mg/dL (8.6-10.8); Carbon Dioxide 20 mEq/L (19-29); Chloride 108 mEq/L (98-109); Globulin 4.1 g/dL (2.4-3.5); Glucose 324 mg/dL (70-99); Osmolality,Calculated 304 (280-300); Sodium 139 mEq/L (136-145); Total Protein 5.7 g/dL (6.0-8.3); eGFR For African Americans 40 (> 60); eGFR For Non-African Americans 33 (> 60)
[2016-06-27 09:41] LABS: Alanine Aminotransferase < 6 Units/L (0-55); Albumin 1.6 g/dL (3.5-5.0); Creatine Kinase < 7 Units/L (29-168)
[2016-06-27 09:43] LABS: Anisocytosis 1+ (Not Present); Lymphocytes # 1.2 K/mcL (0.6-4.6); Monocytes # 0.3 K/mcL (0.0-1.3); Neutrophils # 10.9 K/mcL (1.6-8.9); Poikilocytosis 1+ (Not Present)
[2016-06-27 09:44] LABS: Platelet Estimate Normal (Normal)
[2016-06-27 10:18] LABS: Hepatitis A Antibody IgM Nonreactive (Nonreactive); Hepatitis B Core IgM Nonreactive (Nonreactive); Hepatitis B Surface Antigen Nonreactive (Nonreactive); Hepatitis C Virus Antibody Nonreactive (Nonreactive)
--- NOTE | 2016-06-27 10:22 | Internal Med Progress Note ---
<VillaKiana Ricki - Last Filed: 06/27/16 19:07> Date of Encounter: 06/27/16 Time of Encounter: 10:00 - Assessment and plan (1) Sepsis Current Visit: Yes Status: Acute Assessment and plan: Patient hemodynamically stable WBC plateau at 11.9 today Cultures of the right foot positive for group B strep Infectious disease discontinued vancomycin and zosyn, started Rocephin Continue Rocephin Planning below knee amputation of right foot tomorrow Qualifiers: Sepsis type: Streptococcus group B Qualified Code(s): A40.1 - Sepsis due to streptococcus, group B (2) Osteomyelitis Current Visit: Yes Status: Suspected Assessment and plan: Forefoot necrosis Toes are black, cold, and cyanotic Plan is for below knee amputation of right lower leg tomorrow Qualifiers: Qualified Code(s): M86.9 - Osteomyelitis, unspecified (3) Foot ulcer due to secondary DM Current Visit: Yes Status: Chronic Assessment and plan: Left foot ulcer Continue wound care instructions per podiatry We appreciate recommendations (4) Insulin dependent diabetes mellitus Current Visit: Yes Status: Chronic Assessment and plan: Patient requires better glycemic control to help with wound healing and recurrent infections A1C 12.5 Continue with SS-high dose correction Start 5u Levemir BID for basal insulin (5) Peripheral artery disease Current Visit: Yes Status: Acute Assessment and plan: No need for surgical correction at this time she did have a normal JULIANA. Appreciate vascular surgery (6) Hemangioma of liver Current Visit: Yes Status: Chronic Assessment and plan: CTA demonstrated partially visualized mass in liver 9.1x15.2cm containing fat, calcium, and soft tissue CT abdomen demonstrated possible hemangioma that takes up a large portion of liver Patient states that she follows with Dr. Ch at [facility] and has repeat imaging every 2 years to monitor Plan for paracentesis with studies of ascitic fluid today (7) Ascites Current Visit: Yes Status: Acute Assessment and plan: Plan as above Qualifiers: Qualified Code(s): R18.8 - Other ascites (8) Acute kidney injury Current Visit: Yes Status: Acute Assessment and plan: Improving Suspect injury is secondary to sepsis, vancomycin, and contrast-induced nephropathy Nephrology consult in place Appreciate recommendations (9) Microcytic anemia Current Visit: Yes Status: Chronic Assessment and plan: Iron, percent saturation, and transferrin low Ferritin high, however may be elevated in the setting of sepsis due to diabetic ulcer Polychromasia present High RDW Vitamin B12 and Folate are normal These studies are suggestive of anemia of chronic disease We will hold off on iron transfusion given underlying sepsis (10) Exertional dyspnea Current Visit: Yes Status: Resolved Assessment and plan: Suspected Pneumonia per imaging studies; continue IV antibiotics, blood cultures so far negative; Echocardiogram shows preserved EF, moderate LV diastolic dysfunction; (11) Hypomagnesemia Current Visit: Yes Status: Resolved Assessment and plan: Repleted Continue to monitor (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 She have very little sensation to right foot. As previously mentioned, Dr. Lenz recommends below the knee amputation due to foot not being salvageable. Patient does not want to loose her foot. - Constitutional Vitals: Temp Pulse Resp BP Pulse Ox 97.8 F 90 16 135/67 95 06/27/16 07:32 06/27/16 07:32 06/27/16 07:32 06/27/16 07:32 06/27/16 08:05 General appearance: Present: cooperative, A&O X 3, answers questions appropriately - Head Head exam: Present: atraumatic, normocephalic - Eye Eye exam: Present: EOMI, sclera anicteric - Neck Neck exam general surgery: Present: supple, trachea midline. Absent: lymphadenopathy - Respiratory Respiratory exam: Present: decreased breath sounds, CTAB. Absent: accessory muscle use, rales, rhonchi, wheezes - Cardiovascular Cardiovascular exam: Present: RRR, +S1, +S2. Absent: diastolic murmur, gallop, rubs, systolic murmur - GI/Abdominal GI/Abdominal exam: Present: distended (Grossly distended. Worsened from previous. Dullness to percussion.), normal bowel sounds, soft, no peritoneal signs. Absent: tenderness - Extremities Exam Extremities exam: Present: calf tenderness, cyanotic (right foot and toes), pedal edema (2+ pedal edema of right foot and right lower leg to level of knee, left foot and lower leg with trace pitting edema, right foot blue/black and cold to touch, patient able to move toes of right foot), warm, radial pulses palpable and symetrical - Neurological Exam Neurological exam: Present: CN II-XII intact, oriented X3, no focal deficits. Absent: facial droop, speech deficit - Skin Skin exam: Present: dry, intact Internal Medicine: Result - Labs CBC & Chem 7: 06/27/16 09:09 06/27/16 09:09 Labs: Short CBC 06/27/16 Range/Units 09:09 WBC 12.4 H (4.3-11.1) K/mcL Hgb 8.4 L (11.5-15.4) g/dL Hct 28.3 L (35.3-44.9) % Plt Count 387 (140-400) K/mcL Neutrophils # 10.9 H (1.6-8.9) K/mcL BMP 06/27/16 09:09 Sodium 139 Potassium 4.0 Chloride 108 Carbon Dioxide 20 BUN 22 H Creatinine 1.63 H Glucose 324 H Calcium 8.5 L Liver Function 06/27/16 Range/Units 09:09 Total Bilirubin 0.5 (0.2-1.2) mg/dL AST 6 (5-34) Units/L ALT < 6 (0-55) Units/L Alkaline Phosphatase 108 (38-126) Units/L Albumin 1.6 L (3.5-5.0) g/dL - ABG Interpretation ABG results: PT/INR, D-dimer PT 14.6 Seconds (9.4-12.1) H 06/26/16 05:12 D-Dimer 6782 ng/mLFEU (0-500) H 06/18/16 15:47 Consult Discharge Plan - Plan Referrals: Almas Ac DO [Primary Care Provider] - 07/08/16 1:40 pm (Please follow up as schedule...) <Dilshad Kelly - Last Filed: 06/28/16 07:54> Date of Encounter: 06/28/16 - Constitutional Vitals: Temp Pulse Resp BP Pulse Ox 98.1 F 82 17 141/66 98 06/28/16 07:47 06/28/16 07:47 06/28/16 07:47 06/28/16 07:47 06/28/16 07:47 Internal Medicine: Result - Labs CBC & Chem 7: 06/28/16 03:35 06/28/16 03:35 Labs: Short CBC 06/27/16 06/28/16 Range/Units 09:09 03:35 WBC 12.4 H 13.3 H (4.3-11.1) K/mcL Hgb 8.4 L 8.6 L (11.5-15.4) g/dL Hct 28.3 L 28.6 L (35.3-44.9) % Plt Count 387 395 (140-400) K/mcL Neutrophils # 10.9 H 9.8 H (1.6-8.9) K/mcL BMP 06/27/16 06/28/16 09:09 03:35 Sodium 139 140 Potassium 4.0 3.8 Chloride 108 109 Carbon Dioxide 20 23 BUN 22 H 19 Creatinine 1.63 H 1.26 H Glucose 324 H 177 H Calcium 8.5 L 8.6 Liver Function 06/27/16 06/28/16 Range/Units 09:09 03:35 Total Bilirubin 0.5 0.4 (0.2-1.2) mg/dL AST 6 6 (5-34) Units/L ALT < 6 < 6 (0-55) Units/L Alkaline Phosphatase 108 100 (38-126) Units/L Albumin 1.6 L 1.7 L (3.5-5.0) g/dL - ABG Interpretation ABG results: PT/INR, D-dimer PT 14.6 Seconds (9.4-12.1) H 06/26/16 05:12 D-Dimer 6782 ng/mLFEU (0-500) H 06/18/16 15:47 - Impressions Impressions Foot X-Ray 06/27/16 17:50 IMPRESSION: 1. Increase right foot soft tissue swelling with new areas of subcutaneous gas, specially at the plantar aspect, suspicious for worsening soft tissue infection. 2. Redemonstration of marked destructive and hypertrophic changes of the midfoot as above, likely sequela of both Charcot arthropathy and osteomyelitis. 3. Stable chronic osteopenia and destruction of the 5th MTP joint, likely sequela of chronic osteomyelitis. D/ / Arcadio Ortiz MD / Arcadio Ortiz MD Interpreting Provider: Arcadio Ortiz MD - Attending Attestation I examined this patient and my medical decision-making was reviewed with the [employer]/PA/Advanced Practice Nurse/Resident Physician. I agree with the documented findings, disposition and treatment plan as described except to the extent set forth below. IV antibiotics. Possible BKA. D/W patient.
--- NOTE | 2016-06-27 12:06 | Infectious Disease Progress No ---
Date of Encounter: 06/27/16 Time of Encounter: 12:04 - Assessment and Plan (1) Sepsis Current Visit: Yes Status: Acute The patient initially had tachycardia, tachypnea, and bandemia. She subsequently developed leukocytosis with neutrophilic predominance. She continues to have leukocytosis with bandemia today. Likely secondary to right foot infection. Improved. Tachycardia and tachypnea have resolved. WBC is hovering around 12, she has bandemia today. Blood cultures drawn 06/18/16 are negative x 2 sets. Qualifiers: Sepsis type: methicillin susceptible Staphylococcus aureus Qualified Code(s ): A41.01 - Sepsis due to Methicillin susceptible Staphylococcus aureus (2) Right foot infection Current Visit: Yes Status: Acute Causative organism GBS per intra-operative cultures. Bone culture was negative. MRI of the right foot and ankle showed findings consistent with Charcot arthropathy, possible OM, and fluid collections in the soft tissue of the plantar midfoot and encasing the 1st-5th metatarsal shafts. Status post I & D of multiple areas of the right foot and incision of ball cortex 06/23/[address] Lenz. Operative report reviewed. No evidence of bone abnormality, but infection quite extensive. According to the operative note, she may eventually require amputation of the foot. Given the patient's persistent leukocytosis and the duskiness/cyanosis of the toes, there may be a source control issue contributing to the patient's persistent leukocytosis and bandemia. Await podiatry recommendations. ESR and CRP elevated, 62 and 184 respectively. Etiology unclear as there were no ulcers noted to the foot except for the superficial bullous lesions. Continue wound care as outlined by the Podiatry team. Discontinue Vancomycin and Zosyn. Start Rocephin 2 grams IV daily. Duration of treatment depends on the clinical picture. The patient will likely require IV antibiotics after discharge. Monitor renal function and for drug toxicity and dose-adjust antibiotics. Consult social worker clinical for discharge planning. (3) Cellulitis Current Visit: Yes Status: Acute Location: Right foot and lower extremity. Improved. Causative organism likely GBS. Continue antibiotics as outlined above. Qualifiers: Site of cellulitis: extremity Site of cellulitis of extremity: lower extremity Laterality: right Qualified Code(s): L03.115 - Cellulitis of right lower limb (4) Acute kidney injury Current Visit: Yes Status: Acute Likely multifactorial --> nephrotoxic agents + CT contrast +/- underlying diabetic nephropathy. Serum creatinine peaked at 2.15. Improved. Nephrology consulted. Dose-adjust antibiotics based on creatinine clearance. Avoid nephrotoxins as much as possible. (5) Skin bulla Current Visit: Yes Status: Acute Etiology unclear. Status post puncture aspiration at the bedside 06/19/[address] Lenz. Status post OR I & D 06/22/16. Wound care as outlined by the primary team. (6) Exertional dyspnea Current Visit: Yes Status: Resolved Likely secondary to sepsis, but the patient's CXR did show mild CHF. Additionally, the CT of the chest revealed small bilateral pleural effusions. Appears improved. Patient denies shortness of breath at this time. Currently on RA. Management per the primary team. (7) Foot ulcer due to secondary DM Current Visit: Yes Status: Chronic Location: Plantar aspect of the left foot overlying the 1st MTP joint. Wound culture obtained - + MSSA --> the wound does not appear clinically infected. Likely a contaminant from the skin. Continue wound care as outlined by the podiatry team. (8) Hemangioma of liver Current Visit: Yes Status: Chronic Follows with general surgery at [facility]. (9) PAD (peripheral artery disease) Current Visit: Yes Status: Chronic Vascular surgery team consulted. JULIANA normal bilaterally. Right TCPO2 diminished. CTA Aorta with runoff showed moderate diffuse artherosclerotic disease of the SFA and popliteal arteries. No surgical intervention required at this time. Likely contributing to the duskiness of the patient's foot and will likely impair the patient's ability to clear the foot infection and heal the wounds. (10) Charcot's arthropathy Current Visit: Yes Status: Chronic (11) Insulin dependent diabetes mellitus Current Visit: Yes Status: Chronic Uncontrolled. HgA1C 12.6. Recommend aggressive glucose monitoring and control to promote wound healing and prevent re-infection. - Subjective Interval history: Patient seen and examined. Weekend notes reviewed. No acute events noted. Patient lying in bed. States the pain in her foot continues to improve and she thinks her foot looks a little better. Denies fevers or chills. Denies chest pain, shortness of breath, or cough. Denies nausea, vomiting, or constipation. Reports two loose stools per day. Denies abdominal pain, but states her appetite is not very good. Denies urinary complaints. Denies oral thrush or skin lesions. Awaiting further recommendations from podiatry. Infect Dis PN-Objective Data - Labs CBC & Chem 7: 06/27/16 09:09 06/27/16 09:09 Labs: Laboratory Results - last 24 hr 06/24/16 06/25/16 06/26/16 19:53 07:21 05:12 WBC RBC Hgb Hct MCV MCH MCHC RDW Plt Count MPV Seg Neutrophils % Band Neutrophils % Lymphocytes % Monocytes % Neutrophils # Lymphocytes # Monocytes # Platelet Estimate Poikilocytosis Anisocytosis Sodium Potassium Chloride Carbon Dioxide BUN Creatinine Est GFR ( Amer) Est GFR (Non-Af Amer) BUN/Creatinine Ratio Glucose POC Glucose 217 H 307 H Calculated Osmolality Calcium Total Bilirubin AST ALT Alkaline Phosphatase Creatine Kinase Serum Total Protein Albumin Globulin Albumin/Globulin Ratio Vancomycin Trough Hepatitis A IgM Ab Nonreactive Hep Bs Antigen Nonreactive Hep B Core IgM Ab Nonreactive Hepatitis C Ab Screen Nonreactive 06/26/16 06/26/16 06/26/16 11:57 12:11 16:02 WBC RBC Hgb Hct MCV MCH MCHC RDW Plt Count MPV Seg Neutrophils % Band Neutrophils % Lymphocytes % Monocytes % Neutrophils # Lymphocytes # Monocytes # Platelet Estimate Poikilocytosis Anisocytosis Sodium Potassium Chloride Carbon Dioxide BUN Creatinine Est GFR ( Amer) Est GFR (Non-Af Amer) BUN/Creatinine Ratio Glucose POC Glucose 273 H 147 H Calculated Osmolality Calcium Total Bilirubin AST ALT Alkaline Phosphatase Creatine Kinase Serum Total Protein Albumin Globulin Albumin/Globulin Ratio Vancomycin Trough 15.2 Hepatitis A IgM Ab Hep Bs Antigen Hep B Core IgM Ab Hepatitis C Ab Screen 06/26/16 06/27/16 06/27/16 20:55 09:09 09:09 WBC 12.4 H RBC 3.46 L Hgb 8.4 L Hct 28.3 L MCV 81.8 L MCH 24.3 L MCHC 29.7 L RDW 17.1 H Plt Count 387 MPV 9.3 L Seg Neutrophils % 80.0 Band Neutrophils % 8.0 H Lymphocytes % 10.0 Monocytes % 2.0 Neutrophils # 10.9 H Lymphocytes # 1.2 Monocytes # 0.3 Platelet Estimate Normal Poikilocytosis 1+ A Anisocytosis 1+ A Sodium 139 Potassium 4.0 Chloride 108 Carbon Dioxide 20 BUN 22 H Creatinine 1.63 H Est GFR ( Amer) 40 L Est GFR (Non-Af Amer) 33 L BUN/Creatinine Ratio 13 Glucose 324 H POC Glucose 155 H Calculated Osmolality 304 H Calcium 8.5 L Total Bilirubin 0.5 AST 6 ALT < 6 Alkaline Phosphatase 108 Creatine Kinase < 7 L Serum Total Protein 5.7 L Albumin 1.6 L Globulin 4.1 H Albumin/Globulin Ratio 0.4 L Vancomycin Trough Hepatitis A IgM Ab Hep Bs Antigen Hep B Core IgM Ab Hepatitis C Ab Screen Cultures: Cultures 06/23/16 16:35 Wound Culture - Preliminary Right Foot Strep agalactiae - (Group B) 06/23/16 16:35 Anaerobic Culture - Preliminary Right Foot At this time, no anaerobic growth is present. The culture will be finalized after 5 days of incubation. 06/23/16 16:45 Anaerobic Culture - Preliminary Right Foot At this time, no anaerobic growth is present. The culture will be finalized after 5 days of incubation. 06/23/16 16:40 Anaerobic Culture - Preliminary Right Foot At this time, no anaerobic growth is present. The culture will be finalized after 5 days of incubation. 06/23/16 16:45 Surgical Biopsy Culture - Final Right Foot 06/23/16 16:40 Wound Culture - Final Right Foot Strep agalactiae - (Group B) 06/19/16 10:30 Wound Culture - Final Left Foot Staphylococcus aureus Serology 06/26/16 06/26/16 06/24/16 Range/Units 05:12 00:01 06:07 Ur Eosinophil Smear (None Seen) % Urine Creatinine mg/dL Urine Microalbumin mg/L Microalb/Creat Ratio (0-30) Urine Chloride mEq/L Urine Calcium mg/dL Stl C. diff Tox B Gene Negative (Negative) Hepatitis A IgM Ab Nonreactive (Nonreactive) Hep Bs Antigen Nonreactive (Nonreactive) Hep B Core IgM Ab Nonreactive (Nonreactive) Hepatitis C Ab Screen Nonreactive (Nonreactive) HIV Ag/Ab Combo Qual Nonreactive (Nonreactive) 06/23/16 06/23/16 06/23/16 Range/Units 11:37 11:37 08:24 Ur Eosinophil Smear 4 H (None Seen) % Urine Creatinine 35 mg/dL Urine Microalbumin 28 mg/L Microalb/Creat Ratio 80 H (0-30) Urine Chloride 60 mEq/L Urine Calcium < 2.0 mg/dL Stl C. diff Tox B Gene (Negative) Hepatitis A IgM Ab (Nonreactive) Hep Bs Antigen (Nonreactive) Hep B Core IgM Ab (Nonreactive) Hepatitis C Ab Screen (Nonreactive) HIV Ag/Ab Combo Qual (Nonreactive) Exam - Constitutional Vitals: Temp Pulse Resp BP Pulse Ox 98.2 F 89 16 154/71 100 06/27/16 11:20 06/27/16 11:20 06/27/16 11:20 06/27/16 11:20 06/27/16 11:20 General appearance: average body habitus, cooperative, no acute distress - Head Head exam: Present: atraumatic, normal inspection, normocephalic - Eye Eye exam: Present: EOMI, normal appearance, PERRL Pupils: Present: normal accommodation - ENT ENT exam: Present: mucous membranes moist - Neck Neck exam: Present: normal inspection - Respiratory Respiratory exam: Present: CTAB. Absent: rales, respiratory distress, rhonchi, wheezes - Cardiovascular Cardiovascular exam: Present: RRR, +S1, +S2 - GI/Abdominal GI/Abdominal exam: Present: distended (markedly distended with fluid wave noted. ), normal bowel sounds, soft. Absent: tenderness - Extremities Exam Extremities exam: Present: pedal edema (1+ BLE). Absent: joint swelling, tenderness Additional comments: Right foot with wound VAC dressing on with overlying Kerlix dressing C/D/I. Large amount of dark sanguinous drainage noted in the wound VAC canister. Continuous suction at 125mm Hg. Right foot toes are cyanotic, dusky, and cool to touch. +M/S to toes x 5. - Neurological Exam Neurological exam: Present: alert, oriented X3, no focal deficits - Psychiatric Psychiatric exam: Present: normal affect, normal mood - Skin Skin exam: Present: dry, intact, normal color, warm Consult Discharge Plan - Plan Referrals: Almas Ac DO [Primary Care Provider] - 07/08/16 1:40 pm (Please follow up as schedule...)
[2016-06-27] MEDS: Insulin DETEMIR 100 UNIT/ML X5UNITS SQ SCH ×2 (12:35→20:45)
--- NOTE | 2016-06-27 13:20 | Nephrology Progress Note ---
<Felice Ingram - Last Filed: 06/27/16 13:59> Date of Encounter: 06/27/16 Time of Encounter: 08:30 - Assessment and Plan (1) Acute kidney injury Status: Acute Patient acute kidney injury likely multifactorial from patient sepsis at presentation, multiple contrast-enhanced imaging, and uses of potentially nephrotoxic medications (vancomycin). Patient renal function slowly improving and recommended continuing with current management. We will continue to monitor renal function Avoid nephrotoxic agents (2) Cellulitis Status: Acute Infection of right foot with potential osteomyelitis as well as left foot MSSA. Continue treatment per primary team, ID, and podiatry Qualifiers: Site of cellulitis: extremity Site of cellulitis of extremity: lower extremity Laterality: right Qualified Code(s): L03.115 - Cellulitis of right lower limb (3) Microcytic anemia Status: Chronic Patient irons saturation is low which could be contributing to her microcytic anemia. Patient ferritin is highly elevated, possibly due to being an acute phase reaction in the setting of potential osteomyelitis. We will reassess with resolution the patient infection(s) (4) Insulin dependent diabetes mellitus Status: Chronic Per primary team (5) Hemangioma of liver Status: Chronic Subjective Principal diagnosis: JULISSA Interval history: Patient comfortable at this time, does not report any pain currently. She denies nausea, abdominal pain, shortness of breath. Objective - Vital Signs Vital signs: Vital Signs Temp Pulse Resp BP Pulse Ox 06/27/16 11:20 98.2 F 89 16 154/71 100 06/27/16 08:05 95 06/27/16 07:32 97.8 F 90 16 135/67 95 06/27/16 03:28 98.3 F 90 18 136/70 98 06/26/16 23:49 98.5 F 90 18 156/72 97 06/26/16 18:38 98.1 F 86 18 132/61 98 06/26/16 16:21 98.2 F 88 18 124/70 96 Intake and Output 06/26/16 06/27/16 06/27/16 23:59 07:59 15:59 Intake Total 100 / 100 100 / 100 200 / 200 Output Total 200 / 200 0 / 0 Balance -100 / -100 100 / 100 200 / 200 Intake: IV Fluids 100 / 100 100 / 100 200 / 200 Rocephin 2,000 MG In 100 / 100 Dextrose 5% (Minibag+) 100 ML 100 ML @ 200 mls/ hr IVPB Q24H [facility] Rx#: [id number] Zosyn 3.375 GM In 100 / 100 100 / 100 100 / 100 Dextrose 5% (Minibag+) 100 ML 100 ML @ 25 mls/hr IVPB Q8HR [facility] Rx#: [id number] Oral 0 / 0 0 / 0 0 / 0 Output: Urine 200 / 200 0 / 0 Other: Stool Size Small Stool Consistency loose Stool Color Brown # Voids 1 # Bowel Movements 1 Weight 95 kg Blood Glucose* 155 341 274 Patient Weight 06/27/16 23:59 Weight 95 kg - General Appearance General appearance: Present: well-developed, well-nourished, appears started age EENT: Present: ATNC, PERRL, mucous membranes moist, hearing intact Respiratory: Present: clear. Absent: wheezing, rales, rhonchi Cardiology: Present: no murmurs (+ edema in RLE), no rub, no gallops, edema (1) , regular rate, regular rhythm, normal S1, normal S2 Gastrointestinal: Present: normoactive bowel sounds, no tenderness, no guarding , no organomegaly Integumentary: Present: no rash, cool/clammy (cool in right foot) Additional Comments: Dressing in place in bilateral feet, toes of right foot cool, cyanotic, black Neurologic: Present: no focal deficit, alert and oriented x3 Musculoskeletal: Present: deformities (Patient missing 3 digits on left hand), erythema, cyanosis, no clubbing Psychiatric: Present: mood/affect appropriate, cooperative - Lab 06/27/16 09:09 06/27/16 09:09 Most recent lab results Calcium 8.5 mg/dL (8.6-10.8) L 06/27/16 09:09 Magnesium 1.9 mg/dL (1.6-2.6) 06/24/16 06:07 Urine Creatinine 35 mg/dL 06/23/16 11:37 Consult Discharge Plan - Plan Additional Instructions: Daily dressing changes for right BKA with dry to dry dressing and Chago wrap. May use soap and water to wash and clean the right BKA. Areas to be patted dry beginning on postoperative day #5. Referrals: Almas Ac DO [Primary Care Provider] - 07/08/16 1:40 pm (Please follow up as schedule...) Stone Lenz DPM [Partnered Physician] - 07/13/16 11:30 am Florentin Keating MD [Partnered Physician] - 08/10/16 10:30 am (Follow-up with Dr. Keating for right BKA staple removal.) Prescriptions: OxyCODONE/APAP 10/325 [Percocet 10/325 MG] 1 each PO Q6HR PRN #20 tablet PRN Reason: Severe Pain (7-10) <Constantino Loera - Last Filed: 07/14/16 15:55> Date of Encounter: 06/27/16 Objective - Lab 07/04/16 04:23 06/30/16 04:24 Most recent lab results Calcium 8.3 mg/dL (8.6-10.8) L 06/30/16 04:24 Magnesium 1.6 mg/dL (1.6-2.6) 06/29/16 04:25 Urine Creatinine 56 mg/dL 06/30/16 00:05 Urine Sodium 28.0 mEq/L 06/30/16 23:50 - Attending Attestation I examined this patient and my medical decision-making was reviewed with the CERTIFIED SURGICAL FIRST ASSISTANT/PA/Advanced Practice Nurse/Resident Physician. I agree with the documented findings, disposition and treatment plan as described except to the extent set forth below. Pt seen and examined SCr slowly improving and currently at 1.63. Continue to avoid nephrotoxins if possible. Continue adequate fluid intake. No LAWYER indicated
--- NOTE | 2016-06-27 16:59 | Event Note ---
Date of Encounter: 06/27/16 Time of Encounter: 15:00 Paracentesis Date: 06/27/2016 Time: 1510 Indication: Large effusion Resident: Jim Duffy DO Attending: Dr. Kelly A time-out was completed verifying correct patient, procedure, site, positioning , and special equipment if applicable. The patients leftside was prepped and draped in a sterile manner after the appropriate infiltration level was confirmed by ultrasound. 1% lidocaine was used anesthetize the surrounding skin. A 10-blade scalpel used to make the incision. The paracentesis catheter was then threaded without difficulty. The patient had 15ml of clear yellow fluid removed with gentle aspiration. Upon further attempts to aspirate the effusion, there was no success. No further attempts were made and a consultation was placed to interventional radiology. Dr. Kelly was present for the entire procedure. Estimated Blood Loss: 0ml The patient tolerated the procedure well and there were no complications.
--- NOTE | 2016-06-27 17:55 | Podiatry Progress Note ---
Date of Encounter: 06/27/16 Time of Encounter: 17:53 - Assessment and Plan (1) Skin bulla Current Visit: Yes Status: Acute Assessment: #1 bulla 2 right dorsal foot without, purulence or exudate. No penetration of the dermis. #2 edema graded 2/4 of the right lower extremity from toes to tibia #3 no clinical evidence to suggest we have neck and infection/abscess of the right foot because of the lack of skin compromise other than the bulla Plan: #1 spontaneous opening of the dorsal bulla with roof intact #2 bulla lateral aspect right foot with puncture aspiration/drainage with only serosanguineous drainage/exudate. #3 orders for local wound care. Dictation for 06/27/2016: Assessment: #1 Postop day #4 we now visualize significant forefoot necrosis/ischemia with active infection. right foot streptococcal infection. Charcot arthropathy with osteomyelitis. #2 foot is demarcated likely unsalvageable. We will obtain an opinion from vascular surgery as to level of amputation recommended. #3 remove wound VAC today and begin saline wet-to-dry dressings on the right foot continue Santyl dressings the left foot. #4 await vascular surgery opinion and recommendations (2) Foot ulcer Current Visit: No Status: Acute Assessment: #1 diabetic foot ulcer Reyna grade 2 without purulence cellulitis lymphangitis #2 multiple comorbidities as outlined in history Plan: #1 orders for local wound care #2 agree with present antibiotic therapy #3 will likely need a diabetic cast boot for the right foot #4 patient has custom inlays and shoes pending this coming Monday #5 we will follow during his hospitalization and closely post discharge Qualifiers: Laterality: right Non-pressure ulcer stage: with fat layer exposed Qualified Code(s): L97.512 - Non-pressure chronic ulcer of other part of right foot with fat layer exposed Subjective Principal diagnosis: I&D/Right foot abscess/gangrene Interval history: Postop day #4: Patient underwent I&D with drainage of at least 30 mL of purulent exudate. Right forefoot/midfoot, cold with pregangrenous and gangrenous changes. No complaints of pain. No fever no chills no vomiting no chest pain no shortness of breath. Wound VAC intact. Left foot ulcer/wound unremarkable continues to heal, uneventfully without complication. Objective - Vital Signs Vital Signs: Vital Signs Temp Pulse Resp BP Pulse Ox 06/27/16 16:28 97.9 F 85 16 158/74 99 06/27/16 11:20 98.2 F 89 16 154/71 100 06/27/16 08:05 95 06/27/16 07:32 97.8 F 90 16 135/67 95 06/27/16 03:28 98.3 F 90 18 136/70 98 06/26/16 23:49 98.5 F 90 18 156/72 97 06/26/16 18:38 98.1 F 86 18 132/61 98 Intake and Output 06/27/16 06/27/16 06/27/16 07:59 15:59 23:59 Intake Total 100 / 100 200 / 200 0 / 0 Output Total 0 / 0 260 / 260 Balance 100 / 100 200 / 200 -260 / -260 Intake: IV Fluids 100 / 100 200 / 200 Rocephin 2,000 MG In 100 / 100 Dextrose 5% (Minibag+) 100 ML 100 ML @ 200 mls/ hr IVPB Q24H [facility] Rx#: [id number] Zosyn 3.375 GM In 100 / 100 100 / 100 Dextrose 5% (Minibag+) 100 ML 100 ML @ 25 mls/hr IVPB Q8HR [facility] Rx#: [id number] Oral 0 / 0 0 / 0 0 / 0 Output: Urine 0 / 0 0 / 0 Wound Drainage 260 / 260 Right Foot 260 / 260 Other: Stool Size Moderate Stool Consistency loose liquid Stool Color Green # Voids 1 # Bowel Movements 1 Weight 95 kg Blood Glucose* 341 274 196 Patient Weight 06/27/16 23:59 Weight 95 kg - Exam Exam: Left foot wound continues to close uneventfully with 90% granulation tissue 10% fibrin no tunneling or undermining no sinus tract no periwound erythema no cellulitis no lymphangitis noted no purulence. Incision: Present: draining, red, swollen Capillary Refill: none (Right foot) - Lab Result Diagrams: 06/27/16 09:09 06/27/16 09:09 Labs: Abnormal lab results WBC 12.4 K/mcL (4.3-11.1) H 06/27/16 09:09 RBC 3.46 M/mcL (3.82-4.97) L 06/27/16 09:09 Hgb 8.4 g/dL (11.5-15.4) L 06/27/16 09:09 Hct 28.3 % (35.3-44.9) L 06/27/16 09:09 MCV 81.8 fL (83.0-100.0) L 06/27/16 09:09 MCH 24.3 pg (28.0-33.3) L 06/27/16 09:09 MCHC 29.7 g/dL (31.6-35.5) L 06/27/16 09:09 RDW 17.1 % (11.5-14.5) H 06/27/16 09:09 MPV 9.3 fL (9.4-12.4) L 06/27/16 09:09 Immature Gran % 4.8 % (0-4) H 06/24/16 06:07 Band Neutrophils % 8.0 % (0-4) H 06/27/16 09:09 Metamyelocytes % 2.0 % (0) H 06/18/16 15:47 Myelocytes % 2.0 % (0) H 06/26/16 05:12 Promyelocytes % 2.0 % (0) H 06/26/16 05:12 Neutrophils # 10.9 K/mcL (1.6-8.9) H 06/27/16 09:09 Nucleated RBCs/100 WBC 0.2 /100 WBC (0) H 06/19/16 03:33 Reactive Lymphocytes Present (Not Present) A 06/19/16 03:33 Large Platelets Present (Not Present) A 06/23/16 05:20 Polychromasia 1+ (Not Present) A 06/23/16 05:20 Poikilocytosis 1+ (Not Present) A 06/27/16 09:09 Anisocytosis 1+ (Not Present) A 06/27/16 09:09 Microcytosis Present (Not Present) A 06/23/16 05:20 ESR 62 mm/hr (0-15) H 06/23/16 13:48 PT 14.6 Seconds (9.4-12.1) H 06/26/16 05:12 APTT 23.5 Seconds (26.0-36.0) L 06/18/16 21:00 D-Dimer 6782 ng/mLFEU (0-500) H 06/18/16 15:47 VBG pH 7.45 pH Units (7.32-7.42) H 06/18/16 17:53 VBG pCO2 33 mmHg (41-51) L 06/18/16 17:53 VBG pO2 89 mmHg (25-40) H 06/18/16 17:53 BUN 22 mg/dL (7-20) H 06/27/16 09:09 Creatinine 1.63 mg/dL (0.57-1.11) H 06/27/16 09:09 Est GFR ( Amer) 40 (> 60) L 06/27/16 09:09 Est GFR (Non-Af Amer) 33 (> 60) L 06/27/16 09:09 Glucose 324 mg/dL (70-99) H 06/27/16 09:09 POC Glucose 155 (58-89) H 06/26/16 20:55 Hemoglobin A1c 12.6 % (-5.6) H 06/18/16 21:00 Calculated Osmolality 304 (280-300) H 06/27/16 09:09 Calcium 8.5 mg/dL (8.6-10.8) L 06/27/16 09:09 Iron 9 mcg/dL (50-170) L 06/22/16 03:34 % Saturation 6 % (15-50) L 06/22/16 03:34 Transferrin 111 mg/dL (180-382) L 06/22/16 03:34 Ferritin 1620 ng/ml (5-204) H 06/22/16 03:34 Creatine Kinase < 7 Units/L (29-168) L 06/27/16 09:09 C-Reactive Protein 215 mg/L (Less than 5) H 06/24/16 06:07 B-Natriuretic Peptide 193 pg/mL (0-100) H 06/18/16 15:47 Serum Total Protein 5.7 g/dL (6.0-8.3) L 06/27/16 09:09 Albumin 1.6 g/dL (3.5-5.0) L 06/27/16 09:09 Globulin 4.1 g/dL (2.4-3.5) H 06/27/16 09:09 Albumin/Globulin Ratio 0.4 (1.1-2.2) L 06/27/16 09:09 Triglycerides 274 mg/dL (< 150) H 06/19/16 03:33 VLDL Cholesterol, Calc 55 mg/dL (< 31) H 06/19/16 03:33 HDL Cholesterol 11 mg/dL (40-59) L 06/19/16 03:33 Cholesterol/HDL Ratio 13.5 (0-4.9) H 06/19/16 03:33 Beta-Hydroxybutyric Acd > 2.00 mmol/L (0.02-0.27) H 06/18/16 15:47 Urine Clarity Cloudy (Clear) A 06/18/16 16:53 Ur Specific Regina > 1.030 (1.010-1.025) H 06/18/16 16:53 Urine Protein 30 mg/dL (Neg-Trace) H 06/18/16 16:53 Urine Glucose (UA) >=1000 mg/dL (Normal) H 06/18/16 16:53 Urine Ketones 40 mg/dL (Negative) H 06/18/16 16:53 Urine Blood Trace (Negative) H 06/18/16 16:53 Urine Bilirubin Moderate (Negative) H 06/18/16 16:53 Urine Microscopic WBC 15-30 per hpf (0-3) H 06/18/16 16:53 Ur Eosinophil Smear 4 % (None Seen) H 06/23/16 11:37 Ur Squamous Epith Cells Many per lpf (None-Few) H 06/18/16 16:53 Urine Bacteria Many per hpf (None-Few) H 06/18/16 16:53 Ur Culture Indicated? YES (NO) A 06/18/16 16:53 Microalb/Creat Ratio 80 (0-30) H 06/23/16 11:37 Microbiology, Last 48 Hours 06/23/16 16:35 Wound Culture - Preliminary Right Foot Strep agalactiae - (Group B) 06/23/16 16:35 Anaerobic Culture - Preliminary Right Foot At this time, no anaerobic growth is present. The culture will be finalized after 5 days of incubation. 06/23/16 16:45 Anaerobic Culture - Preliminary Right Foot At this time, no anaerobic growth is present. The culture will be finalized after 5 days of incubation. 06/23/16 16:40 Anaerobic Culture - Preliminary Right Foot At this time, no anaerobic growth is present. The culture will be finalized after 5 days of incubation. 06/23/16 16:45 Surgical Biopsy Culture - Final Right Foot Consult Discharge Plan - Plan Referrals: Almas Ac DO [Primary Care Provider] - 07/08/16 1:40 pm (Please follow up as schedule...)
--- NOTE | 2016-06-27 19:06 | Internal Med Progress Note ---
Date of Encounter: 06/27/16 - Assessment and plan (1) Sepsis Current Visit: Yes Status: Acute Qualifiers: Sepsis type: methicillin susceptible Staphylococcus aureus Qualified Code(s ): A41.01 - Sepsis due to Methicillin susceptible Staphylococcus aureus (2) Cellulitis Current Visit: Yes Status: Acute Qualifiers: Site of cellulitis: extremity Site of cellulitis of extremity: lower extremity Laterality: right Qualified Code(s): L03.115 - Cellulitis of right lower limb (3) Foot ulcer due to secondary DM Current Visit: Yes Status: Chronic (4) Acute kidney injury Current Visit: Yes Status: Acute (5) Microcytic anemia Current Visit: Yes Status: Chronic (6) Exertional dyspnea Current Visit: Yes Status: Resolved (7) Insulin dependent diabetes mellitus Current Visit: Yes Status: Chronic (8) Hemangioma of liver Current Visit: Yes Status: Chronic (9) Hypomagnesemia Current Visit: Yes Status: Resolved (10) DVT prophylaxis Current Visit: Yes Status: Acute - Subjective Interval history: Patient is s/p day #1 incision and drainage of multiple sites to right foot with incision of ball cortex for cultures of tissue and bone per Dr. Lenz. Patient states that right foot and leg have decreased swelling and pain today. Dr. Lenz recommends below the knee amputation due to foot not being salvageable. Patient adamant that she does not want to loose her foot. - Constitutional Vitals: Temp Pulse Resp BP Pulse Ox 97.9 F 85 16 158/74 99 06/27/16 16:28 06/27/16 16:28 06/27/16 16:28 06/27/16 16:28 06/27/16 16:28 General appearance: Present: cooperative, A&O X 3, answers questions appropriately Internal Medicine: Result - Labs CBC & Chem 7: 06/27/16 09:09 06/27/16 09:09 Labs: Short CBC 06/27/16 Range/Units 09:09 WBC 12.4 H (4.3-11.1) K/mcL Hgb 8.4 L (11.5-15.4) g/dL Hct 28.3 L (35.3-44.9) % Plt Count 387 (140-400) K/mcL Neutrophils # 10.9 H (1.6-8.9) K/mcL BMP 06/27/16 09:09 Sodium 139 Potassium 4.0 Chloride 108 Carbon Dioxide 20 BUN 22 H Creatinine 1.63 H Glucose 324 H Calcium 8.5 L Liver Function 06/27/16 Range/Units 09:09 Total Bilirubin 0.5 (0.2-1.2) mg/dL AST 6 (5-34) Units/L ALT < 6 (0-55) Units/L Alkaline Phosphatase 108 (38-126) Units/L Albumin 1.6 L (3.5-5.0) g/dL - ABG Interpretation ABG results: PT/INR, D-dimer PT 14.6 Seconds (9.4-12.1) H 06/26/16 05:12 D-Dimer 6782 ng/mLFEU (0-500) H 06/18/16 15:47 Consult Discharge Plan - Plan Referrals: Almas Ac DO [Primary Care Provider] - 07/08/16 1:40 pm (Please follow up as schedule...)
[2016-06-28 04:04] LABS: Hematocrit 28.6 % (35.3-44.9); Hemoglobin 8.6 g/dL (11.5-15.4); Mean Corpuscular HGB Conc 30.1 g/dL (31.6-35.5); Mean Corpuscular Hemoglobin 24.3 pg (28.0-33.3); Mean Corpuscular Volume 80.8 fL (83.0-100.0); Mean Platelet Volume 9.4 fL (9.4-12.4); Platelet Count 395 K/mcL (140-400); Red Blood Count 3.54 M/mcL (3.82-4.97); Red Cell Distribution Width 17.1 % (11.5-14.5)
[2016-06-28 04:20] LABS: Albumin/Globulin Ratio 0.4 (1.1-2.2); Alkaline Phosphatase 100 Units/L (38-126); Aspartate Amino Transferase 6 Units/L (5-34); BUN/Creatinine Ratio 15 (6-26); Bilirubin,Total 0.4 mg/dL (0.2-1.2); Blood Urea Nitrogen 19 mg/dL (7-20); Calcium 8.6 mg/dL (8.6-10.8); Carbon Dioxide 23 mEq/L (19-29); Chloride 109 mEq/L (98-109); Globulin 4.1 g/dL (2.4-3.5); Glucose 177 mg/dL (70-99); Magnesium 1.6 mg/dL (1.6-2.6); Osmolality,Calculated 297 (280-300); Potassium 3.8 mEq/L (3.5-4.5); Sodium 140 mEq/L (136-145); Total Protein 5.8 g/dL (6.0-8.3); eGFR For African Americans 54 (> 60); eGFR For Non-African Americans 44 (> 60)
[2016-06-28 04:21] LABS: Alanine Aminotransferase < 6 Units/L (0-55); Albumin 1.7 g/dL (3.5-5.0)
[2016-06-28 04:44] LABS: Eosinophils # 0.3 K/mcL (0.0-0.6); Lymphocytes # 2.4 K/mcL (0.6-4.6); Monocytes # 0.8 K/mcL (0.0-1.3); Neutrophils # 9.8 K/mcL (1.6-8.9)
[2016-06-28] MEDS: *HR* OxyCODONE/APAP 5/325 TABLET PO PRN ×2 (04:44→19:43)
[2016-06-28] MEDS: *HR* Heparin 5,000 UNIT/ML VIAL SQ SCH ×3 (04:44→23:41)
[2016-06-28 04:45] LABS: Anisocytosis 1+ (Not Present); Large Platelets Present (Not Present); Platelet Estimate Normal (Normal); Toxic Granulation Present (Not Present)
[2016-06-28] MEDS: Insulin LISPRO 300 UNITS/3 ML VIAL SQ SCH ×5 (08:31→16:09)
[2016-06-28] MEDS: Insulin DETEMIR 100 UNIT/ML X5UNITS SQ SCH ×2 (08:31→21:02)
--- NOTE | 2016-06-28 10:08 | Internal Med Progress Note ---
Date of Encounter: 06/28/16 Time of Encounter: 10:08 - Assessment and plan (1) Sepsis Current Visit: Yes Status: Acute Assessment and plan: Secondary to infected right foot ulcer, with gangrene and OM Causative organism GBS per intra-operative cultures. Bone culture was negative. MRI of the right foot and ankle showed findings consistent with Charcot arthropathy, possible OM, and fluid collections in the soft tissue of the plantar midfoot and encasing the 1st-5th metatarsal shafts. Status post I & D of multiple areas of the right foot and incision of ball cortex 06/23/[address] Lenz. Operative report reviewed. No evidence of bone abnormality, but infection quite extensive. Patient may require BKA Leukocytosis remains persistent Foot xray from 06/27 noted for persistent gangrene ESR and CRP elevated, 62 and 184 respectively. Continue Rocephin 2 grams IV daily for now. Blood cultures drawn 06/18/16 are negative x 2 sets. Follow left foot cultures final report Rest of management per podiatry ID eval appreciated Qualifiers: Sepsis type: Streptococcus group B Qualified Code(s): A40.1 - Sepsis due to streptococcus, group B (2) Diabetic foot ulcer Current Visit: Yes Status: Chronic Assessment and plan: Podiatry on board, recommend local wound care, special fit boots and pressure relief in B/L feet; right foot bulla has been drained with serosanguineous fluid ; f/up repeat wound cultures and continue IV antibiotics as above; Qualifiers: Diabetic foot ulcer location: unspecified part of foot Diabetes mellitus type: type 2 Laterality: left Non-pressure ulcer stage: limited to breakdown of skin Qualified Code(s): E11.621 - Type 2 diabetes mellitus with foot ulcer; L97.521 - Non-pressure chronic ulcer of other part of left foot limited to breakdown of skin (3) Hemangioma of liver Current Visit: Yes Status: Chronic Assessment and plan: CTA demonstrated partially visualized mass in liver 9.1x15.2cm containing fat, calcium, and soft tissue CT abdomen demonstrated possible hemangioma that takes up a large portion of liver Patient states that she follows with Dr. Ch at [facility] and has repeat imaging every 2 years to monitor s/p 2.6 L fluid removed by IR Continue to monitor (4) Insulin dependent diabetes mellitus Current Visit: Yes Status: Chronic Assessment and plan: A1C 12.5 Increase levemir, added prandial insulin, continue correctional dose ADA diet Continue to monitor FS (5) Cellulitis Current Visit: Yes Status: Acute Assessment and plan: As in sepsis Qualifiers: Site of cellulitis: extremity Site of cellulitis of extremity: lower extremity Laterality: right Qualified Code(s): L03.115 - Cellulitis of right lower limb (6) Hypomagnesemia Current Visit: Yes Status: Resolved Assessment and plan: Repleted Continue to monitor (7) PAD (peripheral artery disease) Current Visit: Yes Status: Chronic Assessment and plan: Follow vascular (8) Charcot's arthropathy Current Visit: Yes Status: Chronic (9) Acute kidney injury Current Visit: Yes Status: Acute Assessment and plan: Improving Suspect injury is secondary to sepsis, vancomycin, and contrast-induced nephropathy Nephrology consult in place Appreciate recommendations (10) Osteomyelitis Current Visit: Yes Status: Suspected Assessment and plan: Forefoot necrosis Toes are black, cold, and cyanotic Plan is for below knee amputation of right lower leg eventually by podiatry Follow recommendations Qualifiers: Qualified Code(s): M86.9 - Osteomyelitis, unspecified (11) Anemia Current Visit: Yes Status: Acute Assessment and plan: Anemia of chronic disease and superimposed iron deficiency Vit B12 and folate WNL Qualifiers: Anemia type: unspecified type Qualified Code(s): D64.9 - Anemia, unspecified - Subjective Interval history: Patient seen at bedside She is being managed for sepsis secondary to Right foot gangrene and osteomyelitis, L infected wound, Vancomycin and contrast induced JULISSA, Infected LE ulcers and R foot gangrene, hepatic hemangioma with cirrhosis She denies new complains Foot Xray done yesterday shows gas gangrene, charcot arthropathy and OM Creatinine is improving Leukocytosis is persistent Microbiology with Strep agalactiae in right foot wound, MSSA in left foot wound and Klebsiella ozaenae in the urine She has been afebrile since admission - Constitutional Vitals: Temp Pulse Resp BP Pulse Ox 98.1 F 82 17 141/66 100 06/28/16 07:47 06/28/16 07:47 06/28/16 07:47 06/28/16 07:47 06/28/16 08:35 General appearance: Present: cooperative, A&O X 3, pleasant, no acute distress, answers questions appropriately Exam: Chronically ill-looking, pale, not in distress - Head Head exam: Present: atraumatic - Eye Eye exam: Present: sclera anicteric - Neck Neck exam general surgery: Present: supple, trachea midline. Absent: lymphadenopathy - Respiratory Respiratory exam: Present: CTAB. Absent: accessory muscle use, rales, rhonchi, wheezes - Cardiovascular Cardiovascular exam: Present: RRR, +S1, +S2. Absent: diastolic murmur, gallop, rubs, systolic murmur - GI/Abdominal GI/Abdominal exam: Present: distended, normal bowel sounds, soft, no peritoneal signs. Absent: tenderness - Extremities Exam Additional comments: Left foot plantar surface wound dressing clean, wound is punched out with purulent discharge Right foot is cyanotic and black, cold, wound dressing intact, not removed She has bilateral pitting pedal edema, Right leg is warm and not tender - Neurological Exam Neurological exam: Present: alert, CN II-XII intact, oriented X3, no focal deficits. Absent: pronater drift, facial droop, speech deficit - Skin Skin exam: Present: dry, intact, pallor Internal Medicine: Result - Labs CBC & Chem 7: 06/28/16 03:35 06/28/16 03:35 Labs: Short CBC 06/28/16 Range/Units 03:35 WBC 13.3 H (4.3-11.1) K/mcL Hgb 8.6 L (11.5-15.4) g/dL Hct 28.6 L (35.3-44.9) % Plt Count 395 (140-400) K/mcL Neutrophils # 9.8 H (1.6-8.9) K/mcL BMP 06/28/16 03:35 Sodium 140 Potassium 3.8 Chloride 109 Carbon Dioxide 23 BUN 19 Creatinine 1.26 H Glucose 177 H Calcium 8.6 Liver Function 06/28/16 Range/Units 03:35 Total Bilirubin 0.4 (0.2-1.2) mg/dL AST 6 (5-34) Units/L ALT < 6 (0-55) Units/L Alkaline Phosphatase 100 (38-126) Units/L Albumin 1.7 L (3.5-5.0) g/dL - ABG Interpretation ABG results: PT/INR, D-dimer PT 14.6 Seconds (9.4-12.1) H 04/16/17 05:12 D-Dimer 6782 ng/mLFEU (0-500) H 06/18/16 15:47 - Impressions Impressions Foot X-Ray 06/27/16 17:50 IMPRESSION: 1. Increase right foot soft tissue swelling with new areas of subcutaneous gas, specially at the plantar aspect, suspicious for worsening soft tissue infection. 2. Redemonstration of marked destructive and hypertrophic changes of the midfoot as above, likely sequela of both Charcot arthropathy and osteomyelitis. 3. Stable chronic osteopenia and destruction of the 5th MTP joint, likely sequela of chronic osteomyelitis. D/ / Arcadio Ortiz MD / Arcadio Ortiz MD Interpreting Provider: Arcadio Ortiz MD Consult Discharge Plan - Plan Referrals: Almas Ac DO [Primary Care Provider] - 07/08/16 1:40 pm (Please follow up as schedule...)
[2016-06-28] MEDS ORDERED: Insulin DETEMIR 100 UNIT/ML X5UNITS SQ SCH (10:36)
--- NOTE | 2016-06-28 13:00 | Infectious Disease Progress No ---
Date of Encounter: 06/28/16 Time of Encounter: 12:56 - Assessment and Plan (1) Sepsis Current Visit: Yes Status: Acute The patient initially had tachycardia, tachypnea, and bandemia. She subsequently developed leukocytosis with neutrophilic predominance. She continues to have leukocytosis. Likely secondary to right foot infection. Improved. Tachycardia and tachypnea have resolved. WBC is hovering around 12. Blood cultures drawn 06/18/16 are negative x 2 sets. Qualifiers: Sepsis type: Streptococcus group B Qualified Code(s): A40.1 - Sepsis due to streptococcus, group B (2) Right foot infection Current Visit: Yes Status: Acute Causative organism GBS per intra-operative cultures. Bone culture was negative. MRI of the right foot and ankle showed findings consistent with Charcot arthropathy, possible OM, and fluid collections in the soft tissue of the plantar midfoot and encasing the 1st-5th metatarsal shafts. Status post I & D of multiple areas of the right foot and incision of ball cortex 06/23/[address] Lenz. Operative report reviewed. No evidence of bone abnormality, but infection quite extensive. According to the operative note, she may eventually require amputation of the foot. Given the patient's persistent leukocytosis and the duskiness/cyanosis of the toes, there may be a source control issue contributing to the patient's persistent leukocytosis. Repeat x-ray showed gas in the soft tissue. Not sure if this is from the previous surgical procedure or not. CK level normal. Await podiatry recommendations. ESR and CRP elevated, 62 and 184 respectively. Etiology unclear as there were no ulcers noted to the foot except for the superficial bullous lesions. Continue wound care as outlined by the Podiatry team. Continue Rocephin 2 grams IV daily for now. Duration of treatment depends on the clinical picture. The patient will likely require IV antibiotics after discharge if the foot is saved. Monitor renal function and for drug toxicity and dose-adjust antibiotics. Case management following. Discussed with Amaris Nurse Range Mechanic. (3) Cellulitis Current Visit: Yes Status: Acute Location: Right foot and lower extremity. Improved. Causative organism likely GBS. Continue antibiotics as outlined above. Qualifiers: Site of cellulitis: extremity Site of cellulitis of extremity: lower extremity Laterality: right Qualified Code(s): L03.115 - Cellulitis of right lower limb (4) Acute kidney injury Current Visit: Yes Status: Acute Likely multifactorial --> nephrotoxic agents + CT contrast +/- underlying diabetic nephropathy. Serum creatinine peaked at 2.15. Improved. Nephrology consulted. Dose-adjust antibiotics based on creatinine clearance. Avoid nephrotoxins as much as possible. (5) Skin bulla Current Visit: Yes Status: Acute Etiology unclear. Status post puncture aspiration at the bedside 06/19/[address] Lenz. Status post OR I & D 06/22/16. Wound care as outlined by the primary team. (6) Exertional dyspnea Current Visit: Yes Status: Resolved Likely secondary to sepsis, but the patient's CXR did show mild CHF. Additionally, the CT of the chest revealed small bilateral pleural effusions. Appears improved. Patient denies shortness of breath at this time. Currently on RA. Management per the primary team. (7) Foot ulcer due to secondary DM Current Visit: Yes Status: Chronic Location: Plantar aspect of the left foot overlying the 1st MTP joint. Wound culture obtained - + MSSA --> the wound does not appear clinically infected. Likely a contaminant from the skin. Continue wound care as outlined by the podiatry team. (8) Hemangioma of liver Current Visit: Yes Status: Chronic Follows with general surgery at [facility]. (9) PAD (peripheral artery disease) Current Visit: Yes Status: Chronic Vascular surgery team consulted. JULIANA normal bilaterally. Right TCPO2 diminished. CTA Aorta with runoff showed moderate diffuse artherosclerotic disease of the SFA and popliteal arteries. No surgical intervention required at this time. Likely contributing to the duskiness of the patient's foot and will likely impair the patient's ability to clear the foot infection and heal the wounds. (10) Charcot's arthropathy Current Visit: Yes Status: Chronic (11) Insulin dependent diabetes mellitus Current Visit: Yes Status: Chronic Uncontrolled. HgA1C 12.6. Recommend aggressive glucose monitoring and control to promote wound healing and prevent re-infection. (12) Ascites Current Visit: Yes Status: Acute Status post attempted bedside paracentesis by the hospitalist team. Approx 15ml of fluid removed. IR consulted for possible repeat paracentesis. Management per the primary team. Qualifiers: Ascites type: other type Qualified Code(s): R18.8 - Other ascites - Subjective Interval history: Patient seen and examined. No acute events noted overnight. Patient lying in bed with family at bedside. States the pain in her foot continues to improve and she thinks her foot looks a little better today. Denies fevers or chills. Denies chest pain, shortness of breath, or cough. Denies nausea, vomiting, or constipation. States the diarrhea is better and reports no BMs today. Denies abdominal pain, but states her appetite is not very good. She is currently NPO. Denies urinary complaints. Denies oral thrush or skin lesions. Awaiting further recommendations from podiatry and vascular. Infect Dis PN-Objective Data - Labs CBC & Chem 7: 06/28/16 03:35 06/28/16 03:35 Labs: Laboratory Results - last 24 hr 06/27/16 06/28/16 06/28/16 20:41 03:35 03:35 WBC 13.3 H RBC 3.54 L Hgb 8.6 L Hct 28.6 L MCV 80.8 L MCH 24.3 L MCHC 30.1 L RDW 17.1 H Plt Count 395 MPV 9.4 Seg Neutrophils % 74.0 Lymphocytes % 18.0 Monocytes % 6.0 Eosinophils % 2.0 Neutrophils # 9.8 H Lymphocytes # 2.4 Monocytes # 0.8 Eosinophils # 0.3 Toxic Granulation Present A Platelet Estimate Normal Large Platelets Present A Anisocytosis 1+ A Sodium 140 Potassium 3.8 Chloride 109 Carbon Dioxide 23 BUN 19 Creatinine 1.26 H Est GFR ( Amer) 54 L Est GFR (Non-Af Amer) 44 L BUN/Creatinine Ratio 15 Glucose 177 H POC Glucose 212 H Calculated Osmolality 297 Calcium 8.6 Magnesium 1.6 Total Bilirubin 0.4 AST 6 ALT < 6 Alkaline Phosphatase 100 Serum Total Protein 5.8 L Albumin 1.7 L Globulin 4.1 H Albumin/Globulin Ratio 0.4 L 06/28/16 07:36 WBC RBC Hgb Hct MCV MCH MCHC RDW Plt Count MPV Seg Neutrophils % Lymphocytes % Monocytes % Eosinophils % Neutrophils # Lymphocytes # Monocytes # Eosinophils # Toxic Granulation Platelet Estimate Large Platelets Anisocytosis Sodium Potassium Chloride Carbon Dioxide BUN Creatinine Est GFR ( Amer) Est GFR (Non-Af Amer) BUN/Creatinine Ratio Glucose POC Glucose 217 H Calculated Osmolality Calcium Magnesium Total Bilirubin AST ALT Alkaline Phosphatase Serum Total Protein Albumin Globulin Albumin/Globulin Ratio Cultures: Cultures 06/23/16 16:35 Anaerobic Culture - Final Right Foot No anaerobes were recovered. 06/23/16 16:45 Anaerobic Culture - Final Right Foot No anaerobes were recovered. 06/23/16 16:40 Anaerobic Culture - Final Right Foot No anaerobes were recovered. 06/23/16 16:35 Wound Culture - Preliminary Right Foot Strep agalactiae - (Group B) 06/23/16 16:45 Surgical Biopsy Culture - Final Right Foot 06/23/16 16:40 Wound Culture - Final Right Foot Strep agalactiae - (Group B) 06/19/16 10:30 Wound Culture - Final Left Foot Staphylococcus aureus Serology 06/26/16 06/26/16 06/24/16 Range/Units 05:12 00:01 06:07 Ur Eosinophil Smear (None Seen) % Urine Creatinine mg/dL Urine Microalbumin mg/L Microalb/Creat Ratio (0-30) Urine Chloride mEq/L Urine Calcium mg/dL Stl C. diff Tox B Gene Negative (Negative) Hepatitis A IgM Ab Nonreactive (Nonreactive) Hep Bs Antigen Nonreactive (Nonreactive) Hep B Core IgM Ab Nonreactive (Nonreactive) Hepatitis C Ab Screen Nonreactive (Nonreactive) HIV Ag/Ab Combo Qual Nonreactive (Nonreactive) 06/23/16 06/23/16 06/23/16 Range/Units 11:37 11:37 08:24 Ur Eosinophil Smear 4 H (None Seen) % Urine Creatinine 35 mg/dL Urine Microalbumin 28 mg/L Microalb/Creat Ratio 80 H (0-30) Urine Chloride 60 mEq/L Urine Calcium < 2.0 mg/dL Stl C. diff Tox B Gene (Negative) Hepatitis A IgM Ab (Nonreactive) Hep Bs Antigen (Nonreactive) Hep B Core IgM Ab (Nonreactive) Hepatitis C Ab Screen (Nonreactive) HIV Ag/Ab Combo Qual (Nonreactive) - Impressions Impressions Foot X-Ray 06/27/16 17:50 IMPRESSION: 1. Increase right foot soft tissue swelling with new areas of subcutaneous gas, specially at the plantar aspect, suspicious for worsening soft tissue infection. 2. Redemonstration of marked destructive and hypertrophic changes of the midfoot as above, likely sequela of both Charcot arthropathy and osteomyelitis. 3. Stable chronic osteopenia and destruction of the 5th MTP joint, likely sequela of chronic osteomyelitis. D/ / Arcadio Otriz MD / Arcadio Ortiz MD Interpreting Provider: Arcadio Ortiz MD Exam - Constitutional Vitals: Temp Pulse Resp BP Pulse Ox 98.1 F 82 17 141/66 100 06/28/16 07:47 06/28/16 07:47 06/28/16 07:47 06/28/16 07:47 06/28/16 08:35 General appearance: average body habitus, cooperative, no acute distress - Head Head exam: Present: atraumatic, normal inspection, normocephalic - Eye Eye exam: Present: EOMI, normal appearance, PERRL Pupils: Present: normal accommodation - ENT ENT exam: Present: mucous membranes moist - Neck Neck exam: Present: normal inspection - Respiratory Respiratory exam: Present: CTAB. Absent: rales, respiratory distress, rhonchi, wheezes - Cardiovascular Cardiovascular exam: Present: RRR, +S1, +S2 - GI/Abdominal GI/Abdominal exam: Present: distended, firm, normal bowel sounds. Absent: tenderness - Extremities Exam Extremities exam: Present: pedal edema (1+ BLE), tenderness (Right foot) Additional comments: Right foot remains cool and cyanotic to the toes and forefoot. Wound vac has been removed and wet to dry dressing in place with a moderate amount of sero- sanguinous drainage noted. No foul odor noted. Erythema noted to the lower portion of the RLE extending up to the mid-calf/adorno, but improved since yesterday. - Neurological Exam Neurological exam: Present: alert, oriented X3, no focal deficits - Psychiatric Psychiatric exam: Present: normal affect, normal mood - Skin Skin exam: Present: dry, intact, normal color, warm Consult Discharge Plan - Plan Referrals: Almas Ac DO [Primary Care Provider] - 07/08/16 1:40 pm (Please follow up as schedule...)
--- NOTE | 2016-06-28 13:11 | Nephrology Progress Note ---
<Felice Ingram - Last Filed: 06/28/16 13:35> Date of Encounter: 06/28/16 Time of Encounter: 08:25 - Assessment and Plan (1) Acute kidney injury Status: Acute Patient acute kidney injury likely multifactorial from patient sepsis at presentation, multiple contrast-enhanced imaging, and uses of potentially nephrotoxic medications (vancomycin). Patient renal function slowly improving and recommended continuing with current management. Culture results show Streptococcus, patient started on ceftriaxone and vancomycin was stopped. Improvement patient acute kidney injury seen, current serum creatinine of 1.26 with estimated GFR 44. Patient normal at baseline. We will continue to monitor renal function Avoid nephrotoxic agents (2) Cellulitis Status: Acute Right foot wound culture shows Streptococcus agalactiae. Patient started on ceftriaxone with discontinuation of vancomycin. Continue treatment per primary team, ID, and podiatry Qualifiers: Site of cellulitis: extremity Site of cellulitis of extremity: lower extremity Laterality: right Qualified Code(s): L03.115 - Cellulitis of right lower limb (3) Microcytic anemia Status: Chronic Patient irons saturation is low which could be contributing to her microcytic anemia. Patient ferritin is highly elevated, possibly due to being an acute phase reaction in the setting of potential osteomyelitis. We will reassess with resolution the patient infection(s) (4) Insulin dependent diabetes mellitus Status: Chronic Per primary team (5) Hemangioma of liver Status: Chronic Subjective Principal diagnosis: I&D/Right foot abscess/gangrene Interval history: Patient comfortable at this time, does not report any pain currently. She states the right foot is numb, is breathing well without problem. Objective - Vital Signs Vital signs: Vital Signs Temp Pulse Resp BP Pulse Ox 06/28/16 08:35 100 06/28/16 07:47 98.1 F 82 17 141/66 98 06/28/16 04:39 97.9 F 84 18 148/70 100 06/28/16 00:23 97.8 F 84 18 146/65 100 06/27/16 19:24 98.4 F 86 18 138/68 100 06/27/16 16:28 97.9 F 85 16 158/74 99 Intake and Output 06/27/16 06/28/16 06/28/16 23:59 07:59 15:59 Intake Total 120 / 120 Output Total 260 / 260 Balance -140 / -140 Intake: Oral 120 / 120 Output: Urine 0 / 0 Wound Drainage 260 / 260 Right Foot 260 / 260 Other: Meal Dinner Percent of Meal Consumed 75% # Voids 1 Weight 93 kg Blood Glucose* 212 217 152 Patient Weight 06/28/16 23:59 Weight 93 kg - General Appearance Exam: General: Cooperative, pleasant, no acute distress, alert and oriented 3, answers questions appropriately Head: Normocephalic, atraumatic Eye: Conjunctiva pink, sclera anicteric, EOMI Neck: Supple, trachea midline Respiratory: No accessory muscle usage, clear to auscultation bilaterally, no wheezes/rhonchi/rales appreciated Cardiovascular: Regular rate and rhythm, S1 and S2 present, no murmurs/rubs/ gallops/clicks appreciated GI/abdominal: distended, nontender, soft, normal bowel sounds, no peritoneal signs Extremities: No calf tenderness, right foot cyanosis and necrosis, right foot cool, right calf warm to touch with erythema, +1 pitting edema on right foot, also present right foot, no palpable pulse in left foot Neurological: Alert and oriented 3, no facial droop, no focal deficits Skin: Dry, intact - Lab 06/28/16 03:35 06/28/16 03:35 Most recent lab results Calcium 8.6 mg/dL (8.6-10.8) 06/28/16 03:35 Magnesium 1.6 mg/dL (1.6-2.6) 06/28/16 03:35 Urine Creatinine 35 mg/dL 06/23/16 11:37 Consult Discharge Plan - Plan Additional Instructions: Daily dressing changes for right BKA with dry to dry dressing and Chago wrap. May use soap and water to wash and clean the right BKA. Areas to be patted dry beginning on postoperative day #5. Referrals: Almas Ac DO [Primary Care Provider] - 07/08/16 1:40 pm (Please follow up as schedule...) Stone Lenz DPM [Partnered Physician] - 07/13/16 11:30 am Florentin Keating MD [Partnered Physician] - 08/10/16 10:30 am (Follow-up with Dr. Keating for right BKA staple removal.) Prescriptions: OxyCODONE/APAP 10/325 [Percocet 10/325 MG] 1 each PO Q6HR PRN #20 tablet PRN Reason: Severe Pain (7-10) <Constantino Loera - Last Filed: 07/14/16 15:56> Date of Encounter: 06/28/16 Objective - Lab 07/04/16 04:23 06/30/16 04:24 Most recent lab results Calcium 8.3 mg/dL (8.6-10.8) L 06/30/16 04:24 Magnesium 1.6 mg/dL (1.6-2.6) 06/29/16 04:25 Urine Creatinine 56 mg/dL 06/30/16 00:05 Urine Sodium 28.0 mEq/L 06/30/16 23:50 - Attending Attestation I examined this patient and my medical decision-making was reviewed with the NURSING HOME AIDE/PA/Advanced Practice Nurse/Resident Physician. I agree with the documented findings, disposition and treatment plan as described except to the extent set forth below. Pt seen and examined with SCr almost back to normal at 1.26, GFR 44. Continue to monitor and avoid nephrotoxins.
--- NOTE | 2016-06-28 15:22 | IR Procedure Note ---
Date of procedure: 06/28/16 Consent Obtained: Verbal consent, Written consent Timeout: Correct patient and procedure verified, Correct site verified, Time out performed, Skin prep completed Local anesthetic: Lidocaine 1% Indications: ascites Procedure Performed: paracentesis Site/Technique: RLQ Results/Findings: 2.6 L aspirated Estimated blood loss (cc): 1 Complications: None; Tolerated procedure well Post Procedure Treatment Plan: usual care
--- NOTE | 2016-06-28 18:41 | Vascular/[facility] Progress Note ---
Date of Encounter: 06/28/16 Time of Encounter: 18:38 - Assessment and plan (1) PAD (peripheral artery disease) Current Visit: Yes Status: Chronic Progressive ischemia of right foot in light of infection and Charcot joint. I agree with Dr. Lenz's assessment that this is not a salvageable foot and ankle. The patient requires a right below the knee amputation. We will make plans for the right [id number] amputation for . This plan was discussed with the patient and her sisters. - Subjective Interval history: Since I last seen the patient this past she went on to have a formal I& D of the right ankle. This demonstrated gross pus. She also has had progressive ischemic changes of the right toes and forefoot. Because of her Charcot joint and progressive ischemia with infection mask her surgery is asked to see the patient again for amputation. Vital Signs, Last 4 Hours Temp Pulse Resp BP Pulse Ox 06/28/16 15:49 97.7 F 84 17 137/61 91 - Physical Examination General: Present: Conversant, No Apparent Distress HEENT: Present: Atraumatic Vascular: Present: Color/Temperature (Right forefoot and toes are cold to the touch. There is fixed mottling with necrotic tissue present. The right calf is soft and nontender.) Results 06/28/16 03:35 06/28/16 03:35 Lab Results, Last 24 hours 06/28/16 06/28/16 03:35 03:35 WBC 13.3 H Hgb 8.6 L Hct 28.6 L Plt Count 395 Sodium 140 Potassium 3.8 Chloride 109 Carbon Dioxide 23 BUN 19 Creatinine 1.26 H Glucose 177 H Calcium 8.6 Magnesium 1.6 Total Bilirubin 0.4 AST 6 ALT < 6 Alkaline Phosphatase 100 Consult Discharge Plan - Plan Referrals: Almas Ac DO [Primary Care Provider] - 07/08/16 1:40 pm (Please follow up as schedule...)
[2016-06-29] MEDS: Insulin LISPRO 300 UNITS/3 ML VIAL SQ SCH ×8 (01:21→21:20)
[2016-06-29 05:17] LABS: Basophils % 0.2 %; Eosinophils # 0.1 K/mcL (0.0-0.6); Eosinophils % 0.8 %; Hematocrit 29.1 % (35.3-44.9); Hemoglobin 8.6 g/dL (11.5-15.4); Immature Granulocytes % 3.9 % (0-4); Lymphocytes # 1.6 K/mcL (0.6-4.6); Lymphocytes % 13.7 %; Mean Corpuscular HGB Conc 29.6 g/dL (31.6-35.5); Mean Corpuscular Hemoglobin 23.7 pg (28.0-33.3); Mean Corpuscular Volume 80.2 fL (83.0-100.0); Mean Platelet Volume 9.1 fL (9.4-12.4); Monocytes # 0.6 K/mcL (0.0-1.3); Monocytes % 4.8 %; Neutrophils # 9.1 K/mcL (1.6-8.9); Platelet Count 372 K/mcL (140-400); Red Blood Count 3.63 M/mcL (3.82-4.97); Red Cell Distribution Width 16.8 % (11.5-14.5); Segmented Neutrophils % 76.6 %
[2016-06-29 05:32] LABS: Albumin/Globulin Ratio 0.4 (1.1-2.2); Alkaline Phosphatase 92 Units/L (38-126); Aspartate Amino Transferase 7 Units/L (5-34); BUN/Creatinine Ratio 16 (6-26); Bilirubin,Total 0.4 mg/dL (0.2-1.2); Blood Urea Nitrogen 17 mg/dL (7-20); Calcium 8.4 mg/dL (8.6-10.8); Carbon Dioxide 25 mEq/L (19-29); Chloride 109 mEq/L (98-109); Globulin 3.9 g/dL (2.4-3.5); Glucose 175 mg/dL (70-99); Magnesium 1.6 mg/dL (1.6-2.6); Osmolality,Calculated 296 (280-300); Potassium 3.7 mEq/L (3.5-4.5); Sodium 140 mEq/L (136-145); Total Protein 5.6 g/dL (6.0-8.3); eGFR For African Americans > 60 (> 60); eGFR For Non-African Americans 52 (> 60)
[2016-06-29 05:33] LABS: Alanine Aminotransferase < 6 Units/L (0-55); Albumin 1.7 g/dL (3.5-5.0)
[2016-06-29] MEDS: *HR* Heparin 5,000 UNIT/ML VIAL SQ SCH ×3 (06:26→21:18)
[2016-06-29] MEDS: Insulin DETEMIR 100 UNIT/ML X5UNITS SQ SCH ×2 (08:17→21:18)
[2016-06-29] MEDS: *HR* OxyCODONE/APAP 5/325 TABLET PO PRN ×2 (08:21→21:17)
--- NOTE | 2016-06-29 08:30 | Nephrology Progress Note ---
<Felice Ingram - Last Filed: 06/29/16 08:37> Date of Encounter: 06/29/16 Time of Encounter: 08:10 - Assessment and Plan (1) Acute kidney injury Status: Acute Patient acute kidney injury likely multifactorial from patient sepsis at presentation, multiple contrast-enhanced imaging, and uses of potentially nephrotoxic medications (vancomycin). Patient renal function slowly improving and recommended continuing with current management. Culture results show Streptococcus, patient started on ceftriaxone and vancomycin was stopped. Improvement patient acute kidney injury seen, current serum creatinine of 1.09 with estimated GFR 52. Continued improvement in patient kidney function seen. Patient normal at baseline. We will continue to monitor renal function Avoid nephrotoxic agents (2) Cellulitis Status: Acute Right foot wound culture shows Streptococcus agalactiae. Patient started on ceftriaxone with discontinuation of vancomycin. Continue treatment per primary team, ID, and podiatry Qualifiers: Site of cellulitis: extremity Site of cellulitis of extremity: lower extremity Laterality: right Qualified Code(s): L03.115 - Cellulitis of right lower limb (3) Microcytic anemia Status: Chronic Patient irons saturation is low which could be contributing to her microcytic anemia. Patient ferritin is highly elevated, possibly due to being an acute phase reaction in the setting of potential osteomyelitis. We will reassess with resolution the patient infection(s) (4) Insulin dependent diabetes mellitus Status: Chronic Per primary team (5) Hemangioma of liver Status: Chronic Subjective Principal diagnosis: I&D/Right foot abscess/gangrene Interval history: Patient has no concerns/complaints today. She states that she feels her foot is improving. She does have some continued discomfort in her right lower extremity. She feels improvement in her abdomen after her paracentesis yesterday. Objective - Vital Signs Vital signs: Vital Signs Temp Pulse Resp BP Pulse Ox 06/29/16 07:35 97.8 F 84 17 151/74 98 06/29/16 05:28 97.7 F 83 154/75 06/28/16 23:35 97.9 F 82 18 151/72 98 06/28/16 19:43 98.6 F 92 18 158/69 94 06/28/16 15:49 97.7 F 84 17 137/61 91 06/28/16 08:35 100 Intake and Output 04/18/17 04/19/17 04/19/17 23:59 07:59 15:59 Intake Total 0 / 0 Output Total 400 / 400 Balance -400 / -400 Intake: Oral 0 / 0 Output: Urine 400 / 400 Other: Stool Size Moderate Stool Consistency loose Stool Color Green # Bowel Movements 1 Weight 93 kg Blood Glucose* 180 Patient Weight 06/29/16 23:59 Weight 93 kg - General Appearance Exam: General: Cooperative, pleasant, no acute distress, alert and oriented 3, answers questions appropriately Head: Normocephalic, atraumatic Eye: Conjunctiva pink, sclera anicteric Neck: Supple, trachea midline Respiratory: No accessory muscle usage, clear to auscultation bilaterally, no wheezes/rhonchi/rales appreciated Cardiovascular: Regular rate and rhythm, S1 and S2 present, no murmurs/rubs/ gallops/clicks appreciated GI/abdominal: Distended, nontender, soft, normal bowel sounds, no peritoneal signs Extremities: No calf tenderness, right foot cyanosis and necrosis, erythema up to midcalf on right leg, warmth on palpation to right knee, warm, pulses present in left foot, no pulse palpable on right foot, 1+ pedal edema bilaterally, 2 fingers on left hand Neurological: Alert and oriented 3, no facial droop, no focal deficits Skin: Dry, intact, normal color - Lab 06/29/16 04:25 06/29/16 04:25 Most recent lab results Calcium 8.4 mg/dL (8.6-10.8) L 06/29/16 04:25 Magnesium 1.6 mg/dL (1.6-2.6) 06/29/16 04:25 Urine Creatinine 35 mg/dL 06/23/16 11:37 Consult Discharge Plan - Plan Additional Instructions: Daily dressing changes for right BKA with dry to dry dressing and Chago wrap. May use soap and water to wash and clean the right BKA. Areas to be patted dry beginning on postoperative day #5. Referrals: Almas Ac DO [Primary Care Provider] - 07/08/16 1:40 pm (Please follow up as schedule...) Stone Lenz DPM [Partnered Physician] - 07/13/16 11:30 am Florentin Keating MD [Partnered Physician] - 08/10/16 10:30 am (Follow-up with Dr. Keating for right BKA staple removal.) Prescriptions: OxyCODONE/APAP 10/325 [Percocet 10/325 MG] 1 each PO Q6HR PRN #20 tablet PRN Reason: Severe Pain (7-10) <Constantino Loera Dipti - Last Filed: 07/14/16 15:58> Date of Encounter: 06/29/16 Objective - Lab 07/04/16 04:23 06/30/16 04:24 Most recent lab results Calcium 8.3 mg/dL (8.6-10.8) L 06/30/16 04:24 Magnesium 1.6 mg/dL (1.6-2.6) 06/29/16 04:25 Urine Creatinine 56 mg/dL 06/30/16 00:05 Urine Sodium 28.0 mEq/L 06/30/16 23:50 - Attending Attestation I examined this patient and my medical decision-making was reviewed with the IRRIGATION SYSTEM OPERATOR/PA/Advanced Practice Nurse/Resident Physician. I agree with the documented findings, disposition and treatment plan as described except to the extent set forth below. Pt seen and examined with SCr at 1.09, GFR 52 which is almost normal. Will sign off, please reconsult prn. Continue to avoid nephrotoxins if possible.
--- NOTE | 2016-06-29 10:35 | Internal Med Progress Note ---
Date of Encounter: 06/29/16 Time of Encounter: 10:33 - Assessment and plan (1) Sepsis Current Visit: Yes Status: Acute Assessment and plan: Secondary to infected right foot ulcer, with gangrene and OM Causative organism Strep.agalctiae R foot, Left foot MSSA, UTI Klebisiella ozae MRI of the right foot and ankle showed findings consistent with Charcot arthropathy, possible OM, and fluid collections in the soft tissue of the plantar midfoot and encasing the 1st-5th metatarsal shafts. Status post I & D of multiple areas of the right foot and incision of ball cortex 06/23/[address] Lenz. Operative report reviewed. No evidence of bone abnormality, but infection quite extensive. Leukocytosis slightly improved today Foot xray from 06/27 noted for persistent gangrene/OM ESR and CRP elevated, 62 and 184 respectively. Continue Rocephin 2 grams IV daily for now. Blood cultures drawn 06/18/16 are negative x 2 sets. ID eval appreciated vascular eval appreciated, for BKA a.m Patient will need PT/OT eval afterwards and will possibly need in-patient rehab Qualifiers: Sepsis type: Streptococcus group B Qualified Code(s): A40.1 - Sepsis due to streptococcus, group B (2) Diabetic foot ulcer Current Visit: Yes Status: Chronic Assessment and plan: As above Qualifiers: Diabetic foot ulcer location: unspecified part of foot Diabetes mellitus type: type 2 Laterality: left Non-pressure ulcer stage: limited to breakdown of skin Qualified Code(s): E11.621 - Type 2 diabetes mellitus with foot ulcer; L97.521 - Non-pressure chronic ulcer of other part of left foot limited to breakdown of skin (3) Hemangioma of liver Current Visit: Yes Status: Chronic Assessment and plan: CT abdomen demonstrated possible hemangioma that takes up a large portion of liver Patient states that she follows with Dr. Ch at [facility] and has repeat imaging every 2 years to monitor s/p 2.6 L ascitic fluid removed by IR Continue to monitor (4) Insulin dependent diabetes mellitus Current Visit: Yes Status: Chronic Assessment and plan: A1C 12.5, FS improving on current regimen Continue levemir, prandial insulin, continue correctional dose ADA diet Continue to monitor FS (5) Cellulitis Current Visit: Yes Status: Acute Assessment and plan: As in sepsis Qualifiers: Site of cellulitis: extremity Site of cellulitis of extremity: lower extremity Laterality: right Qualified Code(s): L03.115 - Cellulitis of right lower limb (6) Hypomagnesemia Current Visit: Yes Status: Resolved Assessment and plan: Repleted Continue to monitor (7) PAD (peripheral artery disease) Current Visit: Yes Status: Chronic Assessment and plan: Vascular eval noted and appreciated (8) Charcot's arthropathy Current Visit: Yes Status: Chronic (9) Acute kidney injury Current Visit: Yes Status: Acute Assessment and plan: Resolved Suspect injury is secondary to sepsis, vancomycin, and contrast-induced nephropathy Nephrology following (10) Osteomyelitis Current Visit: Yes Status: Suspected Assessment and plan: Forefoot necrosis Toes are black, cold, and cyanotic Plan is for below knee amputation of right lower leg a.m Qualifiers: Osteomyelitis type: chronic multifocal Osteomyelitis location: foot Laterality: right Qualified Code(s): M86.371 - Chronic multifocal osteomyelitis, right ankle and foot (11) Anemia Current Visit: Yes Status: Chronic Assessment and plan: Anemia of chronic disease and superimposed iron deficiency Vit B12 and folate WNL Hb us stable, continue to monitor Qualifiers: Anemia type: unspecified type Qualified Code(s): D64.9 - Anemia, unspecified - Subjective Interval history: Patient seen at bedside She is being managed for sepsis secondary to Right foot gangrene and osteomyelitis, L infected wound, Vancomycin and contrast induced JULISSA, Infected LE ulcers and R foot gangrene, hepatic hemangioma with cirrhosis Foot Xray done 06/27 shows gas gangrene, charcot arthropathy and OM Creatinine is improving vascular consult noted, agree with plan Scheduled for BKA 06/30 Leukocytosis is stable at 11 Microbiology with Strep agalactiae in right foot wound, MSSA in left foot wound and Klebsiella ozaenae in the urine, gilliam sensitive She has been afebrile since admission She denies new complains She is sad about the loss of her right leg, but she denies being depressed, she denies suicidal ideation - Constitutional Vitals: Temp Pulse Resp BP Pulse Ox 97.8 F 84 17 151/74 98 06/29/16 07:35 06/29/16 07:35 06/29/16 07:35 06/29/16 07:35 06/29/16 08:30 General appearance: Present: cooperative, A&O X 3, pleasant, no acute distress, answers questions appropriately Exam: Chronically ill-looking, pale, not in distress - Head Head exam: Present: atraumatic, normocephalic - Eye Eye exam: Present: PERRL, conjuntiva pink, sclera anicteric Pupils: Present: PERRL - Neck Neck exam general surgery: Present: supple, trachea midline. Absent: lymphadenopathy - Respiratory Respiratory exam: Present: CTAB. Absent: accessory muscle use, rales, rhonchi, wheezes - Cardiovascular Cardiovascular exam: Present: RRR, +S1, +S2. Absent: diastolic murmur, gallop, rubs, systolic murmur - GI/Abdominal GI/Abdominal exam: Present: normal bowel sounds, soft, no peritoneal signs. Absent: distended, tenderness - Extremities Exam Additional comments: Left foot plantar surface wound dressing clean, wound is punched out with purulent discharge Right foot is cyanotic and black, cold, wound dressing intact, not removed She has bilateral pitting pedal edema, Right leg is warm and not tender - Neurological Exam Neurological exam: Present: alert, CN II-XII intact, oriented X3, no focal deficits. Absent: pronater drift, facial droop, speech deficit - Skin Skin exam: Present: dry, intact Internal Medicine: Result - Labs CBC & Chem 7: 06/29/16 04:25 06/29/16 04:25 Labs: Short CBC 06/29/16 Range/Units 04:25 WBC 11.8 H (4.3-11.1) K/mcL Hgb 8.6 L (11.5-15.4) g/dL Hct 29.1 L (35.3-44.9) % Plt Count 372 (140-400) K/mcL Neutrophils # 9.1 H (1.6-8.9) K/mcL BMP 06/29/16 04:25 Sodium 140 Potassium 3.7 Chloride 109 Carbon Dioxide 25 BUN 17 Creatinine 1.09 Glucose 175 H Calcium 8.4 L Liver Function 06/29/16 Range/Units 04:25 Total Bilirubin 0.4 (0.2-1.2) mg/dL AST 7 (5-34) Units/L ALT < 6 (0-55) Units/L Alkaline Phosphatase 92 (38-126) Units/L Albumin 1.7 L (3.5-5.0) g/dL - ABG Interpretation ABG results: PT/INR, D-dimer PT 14.6 Seconds (9.4-12.1) H 06/26/16 05:12 D-Dimer 6782 ng/mLFEU (0-500) H 06/18/16 15:47 - Impressions Impressions Paracentesis Ultrasound 06/28/16 00:00 IMPRESSION: Successful ultrasound guided paracentesis. D/ / Diego Romero MD / Diego Romero MD Interpreting Provider: Diego Romero MD Consult Discharge Plan - Plan Referrals: Almas Ac DO [Primary Care Provider] - 07/08/16 1:40 pm (Please follow up as schedule...)
--- NOTE | 2016-06-29 13:37 | Infectious Disease Progress No ---
Date of Encounter: 06/29/16 Time of Encounter: 13:34 - Assessment and Plan (1) Sepsis Current Visit: Yes Status: Acute The patient initially had tachycardia, tachypnea, and bandemia. She subsequently developed leukocytosis with neutrophilic predominance. She continues to have leukocytosis, but it is better today. Likely secondary to right foot infection. Improved. Tachycardia and tachypnea have resolved. WBC is hovering around 12. Blood cultures drawn 06/18/16 are negative x 2 sets. Qualifiers: Sepsis type: Streptococcus group B Qualified Code(s): A40.1 - Sepsis due to streptococcus, group B (2) Right foot infection Current Visit: Yes Status: Acute Causative organism GBS per intra-operative cultures. Bone culture was negative. MRI of the right foot and ankle showed findings consistent with Charcot arthropathy, possible OM, and fluid collections in the soft tissue of the plantar midfoot and encasing the 1st-5th metatarsal shafts. Status post I & D of multiple areas of the right foot and incision of ball cortex 06/23/[address] Lenz. Operative report reviewed. No evidence of bone abnormality, but infection quite extensive. Given the patient's persistent leukocytosis and the duskiness/cyanosis of the toes, there may be a source control issue contributing to the patient's persistent leukocytosis. Repeat x-ray showed gas in the soft tissue. Not sure if this is from the previous surgical procedure or not. CK level normal. ESR and CRP elevated, 62 and 184 respectively. Etiology unclear as there were no ulcers noted to the foot except for the superficial bullous lesions. Podiatry and vascular have opted to proceed with right BKA tomorrow morning. Continue wound care as outlined by the Podiatry team. Continue Rocephin 2 grams IV daily for now. Will continue antibiotics for 24 hours post-op, then discontinue. Monitor renal function and for drug toxicity and dose-adjust antibiotics. (3) Cellulitis Current Visit: Yes Status: Acute Location: Right foot and lower extremity. Improved. Causative organism likely GBS. Continue antibiotics as outlined above. Qualifiers: Site of cellulitis: extremity Site of cellulitis of extremity: lower extremity Laterality: right Qualified Code(s): L03.115 - Cellulitis of right lower limb (4) Acute kidney injury Current Visit: Yes Status: Acute Likely multifactorial --> nephrotoxic agents + CT contrast +/- underlying diabetic nephropathy. Serum creatinine peaked at 2.15. Improved. Nephrology consulted. Dose-adjust antibiotics based on creatinine clearance. Avoid nephrotoxins as much as possible. (5) Skin bulla Current Visit: Yes Status: Acute Etiology unclear. Status post puncture aspiration at the bedside 06/19/[address] Lenz. Status post OR I & D 06/22/16. Wound care as outlined by the primary team. (6) Exertional dyspnea Current Visit: Yes Status: Resolved Likely secondary to sepsis, but the patient's CXR did show mild CHF. Additionally, the CT of the chest revealed small bilateral pleural effusions. Resolved. Management per the primary team. (7) Foot ulcer due to secondary DM Current Visit: Yes Status: Chronic Location: Plantar aspect of the left foot overlying the 1st MTP joint. Wound culture obtained - + MSSA --> the wound does not appear clinically infected. Likely a contaminant from the skin. Continue wound care as outlined by the podiatry team. (8) Hemangioma of liver Current Visit: Yes Status: Chronic Follows with general surgery at [facility]. (9) PAD (peripheral artery disease) Current Visit: Yes Status: Chronic Vascular surgery team consulted. JULIANA normal bilaterally. Right TCPO2 diminished. (10) Charcot's arthropathy Current Visit: Yes Status: Chronic (11) Insulin dependent diabetes mellitus Current Visit: Yes Status: Chronic Uncontrolled. HgA1C 12.6. Recommend aggressive glucose monitoring and control to promote wound healing and prevent re-infection. (12) Ascites Current Visit: Yes Status: Acute Status post attempted bedside paracentesis by the hospitalist team. Approx 15ml of fluid removed. IR consulted for possible repeat paracentesis. Status post CT guided paracentesis by Interventional Radiology. 2.5 liters removed. Management per the primary team. Qualifiers: Ascites type: other type Qualified Code(s): R18.8 - Other ascites - Subjective Interval history: Patient seen and examined. No acute events noted overnight. Patient lying in bed. Denies pain in her foot at this time and states she was told that they are planning to amputate the foot tomorrow morning. Denies fevers or chills. Denies chest pain, shortness of breath, or cough. Denies nausea, vomiting, or constipation. States the diarrhea is better and reports a loose BM this morning. Denies abdominal pain and states her appetite is better. Denies urinary complaints. Denies oral thrush or skin lesions. Infect Dis PN-Objective Data - Labs CBC & Chem 7: 06/29/16 04:25 06/29/16 04:25 Labs: Laboratory Results - last 24 hr 06/27/16 06/27/16 06/27/16 07:34 11:19 16:31 WBC RBC Hgb Hct MCV MCH MCHC RDW Plt Count MPV Immature Gran % Seg Neutrophils % Lymphocytes % Monocytes % Eosinophils % Basophils % Neutrophils # Lymphocytes # Monocytes # Eosinophils # Basophils # Sodium Potassium Chloride Carbon Dioxide BUN Creatinine Est GFR ( Amer) Est GFR (Non-Af Amer) BUN/Creatinine Ratio Glucose POC Glucose 341 H 274 H 196 H Calculated Osmolality Calcium Magnesium Total Bilirubin AST ALT Alkaline Phosphatase Serum Total Protein Albumin Globulin Albumin/Globulin Ratio Blood Type Antibody Screen 06/28/16 06/28/16 06/28/16 11:14 16:07 21:01 WBC RBC Hgb Hct MCV MCH MCHC RDW Plt Count MPV Immature Gran % Seg Neutrophils % Lymphocytes % Monocytes % Eosinophils % Basophils % Neutrophils # Lymphocytes # Monocytes # Eosinophils # Basophils # Sodium Potassium Chloride Carbon Dioxide BUN Creatinine Est GFR ( Amer) Est GFR (Non-Af Amer) BUN/Creatinine Ratio Glucose POC Glucose 152 H 69 180 H Calculated Osmolality Calcium Magnesium Total Bilirubin AST ALT Alkaline Phosphatase Serum Total Protein Albumin Globulin Albumin/Globulin Ratio Blood Type Antibody Screen 06/29/16 06/29/16 06/29/16 04:25 04:25 08:15 WBC 11.8 H RBC 3.63 L Hgb 8.6 L Hct 29.1 L MCV 80.2 L MCH 23.7 L MCHC 29.6 L RDW 16.8 H Plt Count 372 MPV 9.1 L Immature Gran % 3.9 Seg Neutrophils % 76.6 Lymphocytes % 13.7 Monocytes % 4.8 Eosinophils % 0.8 Basophils % 0.2 Neutrophils # 9.1 H Lymphocytes # 1.6 Monocytes # 0.6 Eosinophils # 0.1 Basophils # 0.0 Sodium 140 Potassium 3.7 Chloride 109 Carbon Dioxide 25 BUN 17 Creatinine 1.09 Est GFR ( Amer) > 60 Est GFR (Non-Af Amer) 52 L BUN/Creatinine Ratio 16 Glucose 175 H POC Glucose 228 H Calculated Osmolality 296 Calcium 8.4 L Magnesium 1.6 Total Bilirubin 0.4 AST 7 ALT < 6 Alkaline Phosphatase 92 Serum Total Protein 5.6 L Albumin 1.7 L Globulin 3.9 H Albumin/Globulin Ratio 0.4 L Blood Type Antibody Screen 06/29/16 09:08 WBC RBC Hgb Hct MCV MCH MCHC RDW Plt Count MPV Immature Gran % Seg Neutrophils % Lymphocytes % Monocytes % Eosinophils % Basophils % Neutrophils # Lymphocytes # Monocytes # Eosinophils # Basophils # Sodium Potassium Chloride Carbon Dioxide BUN Creatinine Est GFR ( Amer) Est GFR (Non-Af Amer) BUN/Creatinine Ratio Glucose POC Glucose Calculated Osmolality Calcium Magnesium Total Bilirubin AST ALT Alkaline Phosphatase Serum Total Protein Albumin Globulin Albumin/Globulin Ratio Blood Type A NEGATIVE Antibody Screen NEGATIVE Cultures: Cultures 06/23/16 16:35 Wound Culture - Final Right Foot Strep agalactiae - (Group B) Strep agalactiae - (Group B)#2 06/23/16 16:35 Anaerobic Culture - Final Right Foot No anaerobes were recovered. 06/23/16 16:45 Anaerobic Culture - Final Right Foot No anaerobes were recovered. 06/23/16 16:40 Anaerobic Culture - Final Right Foot No anaerobes were recovered. 06/23/16 16:45 Surgical Biopsy Culture - Final Right Foot 06/23/16 16:40 Wound Culture - Final Right Foot Strep agalactiae - (Group B) 06/19/16 10:30 Wound Culture - Final Left Foot Staphylococcus aureus Serology 06/26/16 06/26/16 06/24/16 Range/Units 05:12 00:01 06:07 Ur Eosinophil Smear (None Seen) % Urine Creatinine mg/dL Urine Microalbumin mg/L Microalb/Creat Ratio (0-30) Urine Chloride mEq/L Urine Calcium mg/dL Stl C. diff Tox B Gene Negative (Negative) Hepatitis A IgM Ab Nonreactive (Nonreactive) Hep Bs Antigen Nonreactive (Nonreactive) Hep B Core IgM Ab Nonreactive (Nonreactive) Hepatitis C Ab Screen Nonreactive (Nonreactive) HIV Ag/Ab Combo Qual Nonreactive (Nonreactive) 06/23/16 06/23/16 06/23/16 Range/Units 11:37 11:37 08:24 Ur Eosinophil Smear 4 H (None Seen) % Urine Creatinine 35 mg/dL Urine Microalbumin 28 mg/L Microalb/Creat Ratio 80 H (0-30) Urine Chloride 60 mEq/L Urine Calcium < 2.0 mg/dL Stl C. diff Tox B Gene (Negative) Hepatitis A IgM Ab (Nonreactive) Hep Bs Antigen (Nonreactive) Hep B Core IgM Ab (Nonreactive) Hepatitis C Ab Screen (Nonreactive) HIV Ag/Ab Combo Qual (Nonreactive) - Impressions Impressions Paracentesis Ultrasound 06/28/16 00:00 IMPRESSION: Successful ultrasound guided paracentesis. D/ / Diego Romero MD / Diego Romero MD Interpreting Provider: Diego Romero MD Exam - Constitutional Vitals: Temp Pulse Resp BP Pulse Ox 98.2 F 84 18 148/69 98 06/29/16 11:47 06/29/16 11:47 06/29/16 11:47 06/29/16 11:47 06/29/16 11:47 General appearance: average body habitus, cooperative, no acute distress - Head Head exam: Present: atraumatic, normal inspection, normocephalic - Eye Eye exam: Present: EOMI, normal appearance, PERRL Pupils: Present: normal accommodation - ENT ENT exam: Present: mucous membranes moist - Neck Neck exam: Present: normal inspection - Respiratory Respiratory exam: Present: CTAB. Absent: rales, respiratory distress, rhonchi, wheezes - Cardiovascular Cardiovascular exam: Present: RRR, +S1, +S2 - GI/Abdominal GI/Abdominal exam: Present: distended (improved), normal bowel sounds, soft. Absent: tenderness Additional comments: Dressings to the bilateral lower quadrants are C/D/I. - Extremities Exam Extremities exam: Present: pedal edema (1+ BLE). Absent: joint swelling, tenderness Additional comments: Right foot dressing C/D/I without odor. Toes remain dusky and cyanotic. No tenderness noted on exam. Dressing to the left foot remains C/D/I. - Neurological Exam Neurological exam: Present: alert, oriented X3, no focal deficits - Psychiatric Psychiatric exam: Present: normal affect, normal mood - Skin Skin exam: Present: dry, intact, normal color, warm Consult Discharge Plan - Plan Referrals: Almas Ac DO [Primary Care Provider] - 07/08/16 1:40 pm (Please follow up as schedule...)
--- NOTE | 2016-06-29 23:53 | Anesthesia Evaluation PreOp ---
Date of Encounter: 06/29/16 Time of Encounter: 19:00 - Past History Planned Operation: Below Knee Amputation Cardiac History: CHF (hx mild), HTN, Hyperlipidemia, Other (Chronic Anemia superimposed over Iron Def Anemia, PAD) Pulmonary History: Denies Any Significant HX RECREATIONAL RESORT MANAGER History: Denies Any Significant HX Other Medical History: Hepatic (Hemangioma Liver), Diabetes Type I (Poorly Controlled), GERD, Other (Charcot's Arthropathy...Depression/Anxiety) Anesthesia History: No Prior Anesthetic Complications : No Alcohol Use: none Drug use: unknown Medications and Allergies Insulin ASPART [NovoLOG] 20 - 45 unit SQ TIDWM 10/15/14 [History] Medroxyprogesterone Acetate [Depo-Provera] 150 mg IJ [id number] 10/15/14 [History] Sertraline [Zoloft] 100 mg PO DAILY 10/15/14 [History] Doxycycline Hyclate [Vibramycin] 100 mg PO BID 06/19/16 [History] Furosemide [Lasix] 20 mg PO DAILY 06/19/16 [History] Omeprazole [PriLOSEC] 20 mg PO DAILY 06/19/16 [History] Oxycodone HCl/Acetaminophen [Percocet 5-325 mg Tablet] 1 each PO Q8H PRN [History] Allergies No Known Allergies Allergy (Verified 06/18/16 14:55) - Meds/Allergy Pre-op Review Medications Reviewed: Yes Allergies Reviewed: Yes Beta Blockers on Current Med List: No Anesthesia Results - Labs 06/29/16 04:25 06/29/16 04:25 Laboratory Tests 06/18/16 06/26/16 06/29/16 21:00 05:12 04:25 Hgb 8.6 L Hct 29.1 L Plt Count 372 PT 14.6 H INR 1.3 APTT 23.5 L Sodium Potassium BUN Creatinine 06/29/16 04:25 Hgb Hct Plt Count PT INR APTT Sodium 140 Potassium 3.7 BUN 17 Creatinine 1.09 - Imaging EKG: report reviewed (Sinus Tachycardia) Additional studies: LVEF 55-60%, mod diastolic dysfunction Anesthesia Exam Vital Signs/O2 Sat/Glucose, Most Current Temp Pulse Resp BP Pulse Ox 06/29/16 20:26 98.2 F 87 16 153/64 97 Height: 5'10 Weight: 205 lbs NPO (# of Hours): MN Pain Scale: 3 - HEENT Pupil (Motor): Pupils equal, EOMI Mallampati: III Teeth: Normal Oral Opening: Less than or equal to 3 - RECREATIONAL RESORT MANAGER LOC: Oriented RECREATIONAL RESORT MANAGER Motor: Normal RUE, Normal RLE, Normal LLE, Normal Face, Deficit LUE ( Charcot Arthropathy hands) RECREATIONAL RESORT MANAGER Sensory: Normal: RUE, RLE, LLE, Face, Deficit: LUE - Cardiac Rhythm: Regular Murmur: None JVD: No Carotid Bruit: No - Pulmonary Breath Sounds: bilateral Clear Respiratory Effort: Symmetrical Anesthesia Assess/Plan ASA Score: 3 (HTN DM Anemia PAD) Modified Chambers Scale for Level of Consciousness: Cooperative, oriented, and tranquil Anesthetic Plan: General Monitoring Plan: Standard Monitors Recovery Plan: PACU (Discussed GA, agrees to proceed)
[2016-06-30 05:33] LABS: Basophils % 0.3 %; Eosinophils # 0.1 K/mcL (0.0-0.6); Eosinophils % 0.9 %; Hematocrit 29.2 % (35.3-44.9); Hemoglobin 8.6 g/dL (11.5-15.4); Immature Granulocytes % 4.5 % (0-4); Lymphocytes # 1.8 K/mcL (0.6-4.6); Lymphocytes % 16.7 %; Mean Corpuscular HGB Conc 29.5 g/dL (31.6-35.5); Mean Corpuscular Hemoglobin 23.6 pg (28.0-33.3); Mean Corpuscular Volume 80.2 fL (83.0-100.0); Mean Platelet Volume 9.4 fL (9.4-12.4); Monocytes # 0.6 K/mcL (0.0-1.3); Monocytes % 5.3 %; Neutrophils # 7.8 K/mcL (1.6-8.9); Platelet Count 326 K/mcL (140-400); Red Blood Count 3.64 M/mcL (3.82-4.97); Red Cell Distribution Width 16.9 % (11.5-14.5); Segmented Neutrophils % 72.3 %
[2016-06-30] MEDS: *HR* Heparin 5,000 UNIT/ML VIAL SQ SCH ×2 (05:37→15:24)
[2016-06-30 05:51] LABS: Albumin/Globulin Ratio 0.4 (1.1-2.2); Alkaline Phosphatase 86 Units/L (38-126); Aspartate Amino Transferase 7 Units/L (5-34); BUN/Creatinine Ratio 14 (6-26); Bilirubin,Total 0.4 mg/dL (0.2-1.2); Blood Urea Nitrogen 14 mg/dL (7-20); Calcium 8.3 mg/dL (8.6-10.8); Carbon Dioxide 25 mEq/L (19-29); Chloride 108 mEq/L (98-109); Globulin 3.8 g/dL (2.4-3.5); Glucose 145 mg/dL (70-99); Osmolality,Calculated 293 (280-300); Potassium 3.6 mEq/L (3.5-4.5); Sodium 140 mEq/L (136-145); Total Protein 5.5 g/dL (6.0-8.3); eGFR For African Americans > 60 (> 60); eGFR For Non-African Americans 60 (> 60)
[2016-06-30 05:52] LABS: Alanine Aminotransferase < 6 Units/L (0-55); Albumin 1.7 g/dL (3.5-5.0)
[2016-06-30] MEDS: Insulin LISPRO 300 UNITS/3 ML VIAL SQ SCH ×7 (08:08→20:51)
[2016-06-30] MEDS: Insulin DETEMIR 100 UNIT/ML X5UNITS SQ SCH ×2 (08:11→20:51)
[2016-06-30] MEDS ORDERED: Insulin DETEMIR 100 UNIT/ML X5UNITS SQ ONE (08:12)
--- NOTE | 2016-06-30 08:54 | Infectious Disease Progress No ---
Date of Encounter: 06/30/16 Time of Encounter: 08:50 - Assessment and Plan (1) Sepsis Current Visit: Yes Status: Acute The patient initially had tachycardia, tachypnea, and bandemia. She subsequently developed leukocytosis with neutrophilic predominance. Likely secondary to right foot infection. Improved. Tachycardia and tachypnea have resolved. WBC has normalized. Blood cultures drawn 06/18/16 are negative x 2 sets. Qualifiers: Sepsis type: Streptococcus group B Qualified Code(s): A40.1 - Sepsis due to streptococcus, group B (2) Right foot infection Current Visit: Yes Status: Acute Causative organism GBS per intra-operative cultures. Bone culture was negative. MRI of the right foot and ankle showed findings consistent with Charcot arthropathy, possible OM, and fluid collections in the soft tissue of the plantar midfoot and encasing the 1st-5th metatarsal shafts. Status post I & D of multiple areas of the right foot and incision of ball cortex 06/23/[address] Lenz. Operative report reviewed. No evidence of bone abnormality, but infection quite extensive. Repeat x-ray showed gas in the soft tissue. Not sure if this is from the previous surgical procedure or not. CK level normal. ESR and CRP elevated, 62 and 184 respectively. Etiology unclear as there were no ulcers noted to the foot except for the superficial bullous lesions. Podiatry and vascular have opted to proceed with right BKA this morning. Continue wound care as outlined by the Podiatry team. Continue Rocephin 2 grams IV daily for now. Will continue antibiotics for 24 hours post-op, then discontinue. Monitor renal function and for drug toxicity and dose-adjust antibiotics. (3) Cellulitis Current Visit: Yes Status: Acute Location: Right foot and lower extremity. Improved. Causative organism likely GBS. Continue antibiotics as outlined above. Qualifiers: Site of cellulitis: extremity Site of cellulitis of extremity: lower extremity Laterality: right Qualified Code(s): L03.115 - Cellulitis of right lower limb (4) Acute kidney injury Current Visit: Yes Status: Resolved Likely multifactorial --> nephrotoxic agents + CT contrast Serum creatinine peaked at 2.15. Resolved. Nephrology consulted. Dose-adjust antibiotics based on creatinine clearance. Avoid nephrotoxins as much as possible. (5) Skin bulla Current Visit: Yes Status: Acute Etiology unclear. Status post puncture aspiration at the bedside 06/19/[address] Lenz. Status post OR I & D 06/22/16. Wound care as outlined by the primary team. (6) Exertional dyspnea Current Visit: Yes Status: Resolved Likely secondary to sepsis, but the patient's CXR did show mild CHF. Additionally, the CT of the chest revealed small bilateral pleural effusions. Resolved. Management per the primary team. (7) Foot ulcer due to secondary DM Current Visit: Yes Status: Chronic Location: Plantar aspect of the left foot overlying the 1st MTP joint. Wound culture obtained - + MSSA --> the wound does not appear clinically infected. Likely a contaminant from the skin. Continue wound care as outlined by the podiatry team. (8) Hemangioma of liver Current Visit: Yes Status: Chronic Follows with general surgery at [facility]. (9) PAD (peripheral artery disease) Current Visit: Yes Status: Chronic Vascular surgery team consulted. JULIANA normal bilaterally. Right TCPO2 diminished. (10) Charcot's arthropathy Current Visit: Yes Status: Chronic (11) Insulin dependent diabetes mellitus Current Visit: Yes Status: Chronic Uncontrolled. HgA1C 12.6. Recommend aggressive glucose monitoring and control to promote wound healing and prevent re-infection. (12) Ascites Current Visit: Yes Status: Acute Status post attempted bedside paracentesis by the hospitalist team. Approx 15ml of fluid removed. IR consulted for possible repeat paracentesis. Status post CT guided paracentesis by Interventional Radiology. 2.5 liters removed. Management per the primary team. Qualifiers: Ascites type: other type Qualified Code(s): R18.8 - Other ascites - Subjective Interval history: Patient seen and examined. No acute events noted overnight. Patient lying in bed with her at the bedside. Denies pain in her foot at this time. States she was able to get a good amount of sleep last night. Denies fevers or chills. Denies chest pain, shortness of breath, or cough. Denies nausea, vomiting, or constipation. States the diarrhea is better and reports one loose BM yesterday. Denies abdominal pain and states her appetite is better. She is currently NPO for her surgery today. Denies urinary complaints. Denies oral thrush or skin lesions. Infect Dis PN-Objective Data - Labs CBC & Chem 7: 06/30/16 04:24 06/30/16 04:24 Labs: Laboratory Results - last 24 hr 06/29/16 06/29/16 06/29/16 09:08 11:47 15:30 WBC RBC Hgb Hct MCV MCH MCHC RDW Plt Count MPV Immature Gran % Seg Neutrophils % Lymphocytes % Monocytes % Eosinophils % Basophils % Neutrophils # Lymphocytes # Monocytes # Eosinophils # Basophils # Sodium Potassium Chloride Carbon Dioxide BUN Creatinine Est GFR ( Amer) Est GFR (Non-Af Amer) BUN/Creatinine Ratio Glucose POC Glucose 102 H 197 H Calculated Osmolality Calcium Total Bilirubin AST ALT Alkaline Phosphatase Serum Total Protein Albumin Globulin Albumin/Globulin Ratio Urine Creatinine Blood Type A NEGATIVE Antibody Screen NEGATIVE 06/29/16 06/30/16 06/30/16 20:15 00:05 04:24 WBC 10.8 RBC 3.64 L Hgb 8.6 L Hct 29.2 L MCV 80.2 L MCH 23.6 L MCHC 29.5 L RDW 16.9 H Plt Count 326 MPV 9.4 Immature Gran % 4.5 H Seg Neutrophils % 72.3 Lymphocytes % 16.7 Monocytes % 5.3 Eosinophils % 0.9 Basophils % 0.3 Neutrophils # 7.8 Lymphocytes # 1.8 Monocytes # 0.6 Eosinophils # 0.1 Basophils # 0.0 Sodium Potassium Chloride Carbon Dioxide BUN Creatinine Est GFR ( Amer) Est GFR (Non-Af Amer) BUN/Creatinine Ratio Glucose POC Glucose 170 H Calculated Osmolality Calcium Total Bilirubin AST ALT Alkaline Phosphatase Serum Total Protein Albumin Globulin Albumin/Globulin Ratio Urine Creatinine 56 Blood Type Antibody Screen 06/30/16 06/30/16 04:24 08:00 WBC RBC Hgb Hct MCV MCH MCHC RDW Plt Count MPV Immature Gran % Seg Neutrophils % Lymphocytes % Monocytes % Eosinophils % Basophils % Neutrophils # Lymphocytes # Monocytes # Eosinophils # Basophils # Sodium 140 Potassium 3.6 Chloride 108 Carbon Dioxide 25 BUN 14 Creatinine 0.97 Est GFR ( Amer) > 60 Est GFR (Non-Af Amer) 60 BUN/Creatinine Ratio 14 Glucose 145 H POC Glucose 208 H Calculated Osmolality 293 Calcium 8.3 L Total Bilirubin 0.4 AST 7 ALT < 6 Alkaline Phosphatase 86 Serum Total Protein 5.5 L Albumin 1.7 L Globulin 3.8 H Albumin/Globulin Ratio 0.4 L Urine Creatinine Blood Type Antibody Screen Cultures: Cultures 06/23/16 16:35 Wound Culture - Final Right Foot Strep agalactiae - (Group B) Strep agalactiae - (Group B)#2 06/23/16 16:35 Anaerobic Culture - Final Right Foot No anaerobes were recovered. 06/23/16 16:45 Anaerobic Culture - Final Right Foot No anaerobes were recovered. 06/23/16 16:40 Anaerobic Culture - Final Right Foot No anaerobes were recovered. 06/23/16 16:45 Surgical Biopsy Culture - Final Right Foot 06/23/16 16:40 Wound Culture - Final Right Foot Strep agalactiae - (Group B) 06/19/16 10:30 Wound Culture - Final Left Foot Staphylococcus aureus Serology 06/30/16 06/26/16 06/26/16 Range/Units 00:05 05:12 00:01 Ur Eosinophil Smear (None Seen) % Urine Creatinine 56 mg/dL Urine Microalbumin mg/L Microalb/Creat Ratio (0-30) Urine Chloride mEq/L Urine Calcium mg/dL Stl C. diff Tox B Gene Negative (Negative) Hepatitis A IgM Ab Nonreactive (Nonreactive) Hep Bs Antigen Nonreactive (Nonreactive) Hep B Core IgM Ab Nonreactive (Nonreactive) Hepatitis C Ab Screen Nonreactive (Nonreactive) HIV Ag/Ab Combo Qual (Nonreactive) 06/24/16 06/23/16 06/23/16 Range/Units 06:07 11:37 11:37 Ur Eosinophil Smear 4 H (None Seen) % Urine Creatinine 35 mg/dL Urine Microalbumin 28 mg/L Microalb/Creat Ratio 80 H (0-30) Urine Chloride mEq/L Urine Calcium mg/dL Stl C. diff Tox B Gene (Negative) Hepatitis A IgM Ab (Nonreactive) Hep Bs Antigen (Nonreactive) Hep B Core IgM Ab (Nonreactive) Hepatitis C Ab Screen (Nonreactive) HIV Ag/Ab Combo Qual Nonreactive (Nonreactive) 06/23/16 Range/Units 08:24 Ur Eosinophil Smear (None Seen) % Urine Creatinine mg/dL Urine Microalbumin mg/L Microalb/Creat Ratio (0-30) Urine Chloride 60 mEq/L Urine Calcium < 2.0 mg/dL Stl C. diff Tox B Gene (Negative) Hepatitis A IgM Ab (Nonreactive) Hep Bs Antigen (Nonreactive) Hep B Core IgM Ab (Nonreactive) Hepatitis C Ab Screen (Nonreactive) HIV Ag/Ab Combo Qual (Nonreactive) Exam - Constitutional Vitals: Temp Pulse Resp BP Pulse Ox 98.0 F 84 16 154/73 98 06/30/16 08:01 06/30/16 08:01 06/30/16 08:01 06/30/16 08:01 06/30/16 08:01 General appearance: average body habitus, cooperative, no acute distress - Head Head exam: Present: atraumatic, normal inspection, normocephalic - Eye Eye exam: Present: EOMI, normal appearance, PERRL Pupils: Present: normal accommodation - ENT ENT exam: Present: mucous membranes moist - Neck Neck exam: Present: normal inspection - Respiratory Respiratory exam: Present: CTAB. Absent: rales, respiratory distress, rhonchi, wheezes - Cardiovascular Cardiovascular exam: Present: RRR, +S1, +S2 - GI/Abdominal GI/Abdominal exam: Present: distended, normal bowel sounds, soft. Absent: tenderness - Extremities Exam Extremities exam: Present: pedal edema (1+ BLE). Absent: joint swelling, tenderness Additional comments: Right foot guaze dressing with small amount of ser-sanguinous drainage noted on the plantar aspect. Toes remain dusky and cyanotic, although appear somewhat improved to the 3rd, 4th, and 5th toes. Left foot without erythema or edema. DFU to the plantar-medial aspect with wound bed moist and light yellow/white. No purulent drainage or foul odor noted. - Neurological Exam Neurological exam: Present: alert, oriented X3, no focal deficits - Psychiatric Psychiatric exam: Present: normal affect, normal mood - Skin Skin exam: Present: dry, intact, normal color, warm Consult Discharge Plan - Plan Referrals: Almas Ac DO [Primary Care Provider] - 07/08/16 1:40 pm (Please follow up as schedule...)
[2016-06-30] MEDS ORDERED: amLODIPine 5 MG TABLET PO SCH (09:00)
--- NOTE | 2016-06-30 09:02 | Vascular/Endovas Progress Note ---
Date of Encounter: 06/29/16 Time of Encounter: 08:30 - Assessment and plan (1) PAD (peripheral artery disease) Current Visit: Yes Status: Chronic Progressive ischemia of right foot in light of infection and Charcot joint. I agree with Dr. Lenz's assessment that this is not a salvageable foot and ankle. The patient requires a right below the knee amputation. We will make plans for the right [id number] amputation for . This plan was discussed with the patient and her sisters. Progressive ischemia of right forefoot and toes. Plan right below the knee amputation tomorrow. Potential risks and benefits as well as Paced and alternatives were discussed with the patient. She agrees to proceed. - Subjective Interval history: Since I last seen the patient this past she went on to have a formal I& D of the right ankle. This demonstrated gross pus. She also has had progressive ischemic changes of the right toes and forefoot. Because of her Charcot joint and progressive ischemia with infection mask her surgery is asked to see the patient again for amputation. Vital Signs, Last 4 Hours Temp Pulse Resp BP Pulse Ox 06/30/16 08:01 98.0 F 84 16 154/73 98 - Physical Examination General: Present: Conversant, No Apparent Distress Vascular: Present: Pulse, absent, Color/Temperature (The patient has a purple to black-colored right forefoot and all 5 toes. The toes and forefoot are cold.) Results 06/30/16 04:24 06/30/16 04:24 Lab Results, Last 24 hours 06/30/16 06/30/16 04:24 04:24 WBC 10.8 Hgb 8.6 L Hct 29.2 L Plt Count 326 Sodium 140 Potassium 3.6 Chloride 108 Carbon Dioxide 25 BUN 14 Creatinine 0.97 Glucose 145 H Calcium 8.3 L Total Bilirubin 0.4 AST 7 ALT < 6 Alkaline Phosphatase 86 Consult Discharge Plan - Plan Referrals: Almas Ac DO [Primary Care Provider] - 07/08/16 1:40 pm (Please follow up as schedule...)
--- NOTE | 2016-06-30 09:59 | Internal Med Progress Note ---
Date of Encounter: 06/30/16 Time of Encounter: 09:57 - Assessment and plan (1) Sepsis Current Visit: Yes Status: Acute Assessment and plan: Secondary to infected right foot ulcer, with gangrene and OM Causative organism Strep.agalctiae R foot, Left foot MSSA, UTI Klebisiella ozae MRI of the right foot and ankle showed findings consistent with Charcot arthropathy, possible OM, and fluid collections in the soft tissue of the plantar midfoot and encasing the 1st-5th metatarsal shafts. Status post I & D of multiple areas of the right foot and incision of ball cortex 06/23/[address] Lenz. Operative report reviewed. No evidence of bone abnormality, but infection quite extensive. Leukocytosis resolved Foot xray from 06/27 noted for persistent gangrene/OM ESR and CRP elevated, 62 and 184 respectively. Continue Rocephin 2 grams IV daily for now. Blood cultures drawn 06/18/16 are negative x 2 sets. ID eval appreciated For BKA today, and PT/OT eval a.m Qualifiers: Sepsis type: Streptococcus group B Qualified Code(s): A40.1 - Sepsis due to streptococcus, group B (2) Diabetic foot ulcer Current Visit: Yes Status: Chronic Assessment and plan: As above Qualifiers: Diabetic foot ulcer location: unspecified part of foot Diabetes mellitus type: type 2 Laterality: left Non-pressure ulcer stage: limited to breakdown of skin Qualified Code(s): E11.621 - Type 2 diabetes mellitus with foot ulcer; L97.521 - Non-pressure chronic ulcer of other part of left foot limited to breakdown of skin (3) Hemangioma of liver Current Visit: Yes Status: Chronic Assessment and plan: CT abdomen demonstrated possible hemangioma that takes up a large portion of liver Patient states that she follows with Dr. Ch at [facility] and has repeat imaging every 2 years to monitor s/p 2.6 L ascitic fluid removed by IR Continue to monitor (4) Insulin dependent diabetes mellitus Current Visit: Yes Status: Chronic Assessment and plan: A1C 12.5, FS improving on current regimen Continue levemir, prandial insulin, continue correctional dose ADA diet Continue to monitor FS (5) Cellulitis Current Visit: Yes Status: Acute Assessment and plan: As in sepsis Qualifiers: Site of cellulitis: extremity Site of cellulitis of extremity: lower extremity Laterality: right Qualified Code(s): L03.115 - Cellulitis of right lower limb (6) Hypomagnesemia Current Visit: Yes Status: Resolved Assessment and plan: Repleted Continue to monitor (7) PAD (peripheral artery disease) Current Visit: Yes Status: Chronic Assessment and plan: Vascular eval noted and appreciated (8) Charcot's arthropathy Current Visit: Yes Status: Chronic (9) Acute kidney injury Current Visit: Yes Status: Resolved Assessment and plan: Resolved Suspect injury is secondary to sepsis, vancomycin, and contrast-induced nephropathy (10) Osteomyelitis Current Visit: Yes Status: Suspected Assessment and plan: Forefoot necrosis Toes are black, cold, and cyanotic Plan is for below knee amputation of right lower leg a.m Qualifiers: Osteomyelitis type: chronic multifocal Osteomyelitis location: foot Laterality: right Qualified Code(s): M86.371 - Chronic multifocal osteomyelitis, right ankle and foot (11) Anemia Current Visit: Yes Status: Chronic Assessment and plan: Anemia of chronic disease and superimposed iron deficiency Vit B12 and folate WNL Hb is stable, continue to monitor Qualifiers: Anemia type: unspecified type Qualified Code(s): D64.9 - Anemia, unspecified (12) Hypertension Current Visit: Yes Status: Chronic Assessment and plan: Newly diagnosed as BP is persistently high in this admission Start on Norvasc 5mg daily Qualifiers: Hypertension type: essential hypertension Qualified Code(s): I10 - Essential (primary) hypertension - Subjective Interval history: Patient seen at bedside with spouse She is being managed for sepsis secondary to Right foot gangrene and osteomyelitis, L infected wound, Vancomycin and contrast induced JULISSA, Infected LE ulcers and R foot gangrene, hepatic hemangioma with cirrhosis Foot Xray done 06/27 shows gas gangrene, charcot arthropathy and OM Creatinine is improving vascular consult noted, agree with plan Scheduled for BKA today BP noted to be persistently high Leukocytosis has resolved Microbiology with Strep agalactiae in right foot wound, MSSA in left foot wound and Klebsiella ozaenae in the urine, gilliam sensitive She has been afebrile since admission She denies new complains and looking forward to her surgery patient is high risk today because she is going for an elective major surgery - Constitutional Vitals: Temp Pulse Resp BP Pulse Ox 98.0 F 84 16 154/73 98 06/30/16 08:01 06/30/16 08:01 06/30/16 08:01 06/30/16 08:01 06/30/16 08:01 General appearance: Present: cooperative, A&O X 3, pleasant, no acute distress, answers questions appropriately Exam: Chronically ill-looking - Head Head exam: Present: atraumatic, normocephalic - Eye Eye exam: Present: PERRL, conjuntiva pink, sclera anicteric Pupils: Present: PERRL - Neck Neck exam general surgery: Present: supple, trachea midline. Absent: lymphadenopathy - Respiratory Respiratory exam: Present: CTAB. Absent: accessory muscle use, rales, rhonchi, wheezes - Cardiovascular Cardiovascular exam: Present: RRR, +S1, +S2. Absent: diastolic murmur, gallop, rubs, systolic murmur - GI/Abdominal GI/Abdominal exam: Present: distended, normal bowel sounds, soft, no peritoneal signs. Absent: tenderness - Extremities Exam Extremities exam: Present: cyanotic, mottling. Absent: pedal edema Additional comments: Left foot plantar surface wound dressing clean, wound is punched out with purulent discharge Right foot is cyanotic and black, cold, wound dressing intact, not removed She has bilateral pitting pedal edema, Right leg is warm and not tender - Neurological Exam Neurological exam: Present: alert, CN II-XII intact, oriented X3, no focal deficits. Absent: pronater drift, facial droop, speech deficit - Skin Skin exam: Present: dry, intact Internal Medicine: Result - Labs CBC & Chem 7: 06/30/16 04:24 06/30/16 04:24 Labs: Short CBC 06/30/16 Range/Units 04:24 WBC 10.8 (4.3-11.1) K/mcL Hgb 8.6 L (11.5-15.4) g/dL Hct 29.2 L (35.3-44.9) % Plt Count 326 (140-400) K/mcL Neutrophils # 7.8 (1.6-8.9) K/mcL BMP 06/30/16 04:24 Sodium 140 Potassium 3.6 Chloride 108 Carbon Dioxide 25 BUN 14 Creatinine 0.97 Glucose 145 H Calcium 8.3 L Liver Function 06/30/16 Range/Units 04:24 Total Bilirubin 0.4 (0.2-1.2) mg/dL AST 7 (5-34) Units/L ALT < 6 (0-55) Units/L Alkaline Phosphatase 86 (38-126) Units/L Albumin 1.7 L (3.5-5.0) g/dL - ABG Interpretation ABG results: PT/INR, D-dimer PT 14.6 Seconds (9.4-12.1) H 06/26/16 05:12 D-Dimer 6782 ng/mLFEU (0-500) H 06/18/16 15:47 Consult Discharge Plan - Plan Referrals: Almas Ac DO [Primary Care Provider] - 07/08/16 1:40 pm (Please follow up as schedule...) Florentin Keating MD [Partnered Physician] - 07/18/16 10:30 am
[2016-06-30] MEDS ORDERED: ceFAZolin 2,000 MG in D5% in Water 100 ML IVPB ONE (10:30)
[2016-06-30] MEDS ORDERED: *HR* FentaNYL (PF) 100 MCG/2 ML VIAL ONE (10:33)
[2016-06-30] MEDS ORDERED: *HR* Midazolam HCl 2 MG/2 ML VIAL ONE (10:33)
[2016-06-30] MEDS ORDERED: *HR* Propofol 200 MG/20 ML VIAL IVP ONE (10:33)
[2016-06-30] MEDS ORDERED: *HR* Phenylephrine 10 MG/ML VIAL ONE (11:21)
[2016-06-30] MEDS ORDERED: *HR* Succinylcholine 200 MG/10 ML VIAL IVP ONE (11:25)
[2016-06-30] MEDS ORDERED: Dexamethasone 4 MG/ML VIAL ONE (11:28)
[2016-06-30] MEDS ORDERED: Ondansetron 4 MG/2 ML VIAL ONE (11:28)
[2016-06-30] MEDS ORDERED: Ondansetron 4 MG/2 ML VIAL IVP PRN (12:02)
[2016-06-30] MEDS ORDERED: *HR* HYDROmorphone 2 MG/ML SYRINGE ONE (13:27)
--- NOTE | 2016-06-30 13:35 | Operative Note ---
Date of procedure: 06/30/16 Pre-op diagnosis: ischemic/infected right foot Post-op diagnosis: same Procedure: right BKA Complications: none Anesthesia: ZAYDAA Surgeon: Florentin Keating Estimated blood loss (cc): 400 Specimen: right BKA Condition: stable Disposition: PACU Procedure in Detail: Dulce Maria Cook is a 55-year-old white female who was originally seen in consultation last week for his coloration of the right toes and forefoot. This ischemic process progressed over the next number of days. A CT angiogram demonstrated no definitive lesion suggesting that this was an embolic event or a distal occlusive event. Revascularization was not possible. The tissue went on to become increasingly necrotic. She has a known Charcot joint. An MRI had suggested fluid accumulation and Dr. Lenz took the patient to surgery and drained out darlene pus. As the patient had a Charcot joint at the ankle and gross infection there was no feasibility for performing a forefoot amputation. Therefore the patient required an [id number] amputation and she comes to the operating room today for that process. Procedure After informed consent was obtained the patient was taken the operating room. General endotracheal anesthesia was established. The right lower extremity was sterilely prepped and draped. A timeout protocol was observed. A posterior based flap incision was then made on the right calf. Dissection was carried circumferentially down to and through the fascia. Then the individual muscle compartments were divided. There was excellent perfusion of the tissue and the muscles. The arteries were individually identified and then ligated and divided. The periosteum of the bones was then elevated. The bones were then divided. The edges of the tibia were rasped smooth. Copious amount of irrigation was used to remove any residual fragments. The area was then closed using interrupted 2-0 Vicryl suture. Nhan were used for the skin. Dry sterile dressing was then applied which was secured with Chago wraps and Kerlix rolls. The patient was extubated in the operating room and taken to the recovery room in stable condition.
[2016-06-30] MEDS: *HR* HYDROmorphone (PF) 1 MG/ML SYRINGE IVP PRN ×2 (14:01→14:09)
--- NOTE | 2016-06-30 14:38 | Anesthesia Evaluation Post Op ---
Date of Encounter: 06/30/16 Time of Encounter: 14:35 - Vital Signs Vital Signs: vss - Lungs Lungs: Clear Ascult./Percussion - Airway Airway: Non-obstructed - Cardiovascular Regular Rate, Baseline Rhythm - Mental Status Mental Status: Alert & Oriented, Answers Appropriately - Pain Pain Scale: 2 Pain Scale used: Numeric (1 - 10) - Nausea Vomiting Nausea Vomiting: Not Present - Hydration Hydration: NPO, Has not voided - Discharge PostOp Status: Transfer Patient to floor
[2016-06-30] MEDS ORDERED: *HR* Morphine 2 MG/ML SYRINGE IVP PRN (14:42)
[2016-06-30] MEDS ORDERED: *HR* OxyCODONE/APAP 10/325 TABLET PO PRN (14:55)
[2016-06-30] MEDS ORDERED: Dextrose Gel 15 GM PO PRN ×2 (14:57)
[2016-06-30] MEDS ORDERED: *HR* Dextrose 50 % in Water (Syg) 50 ML SYRINGE IVP PRN (14:57)
[2016-06-30] MEDS ORDERED: D5% in Water 1,000 ML IVC PRN (14:57)
[2016-06-30] MEDS: ceFAZolin 2,000 MG in D5% in Water 100 ML IVPB SCH ×2 (16:46→23:57)
[2016-06-30] MEDS: *HR* OxyCODONE/APAP 5/325 TABLET PO PRN ×2 (17:10→23:57)
[2016-06-30] MEDS: *HR* Morphine 2 MG/ML SYRINGE IVP PRN (20:52)
[2016-07-01 00:05] LABS: Potassium,Urine < 10.0 mEq/L
[2016-07-01 00:25] LABS: Osmolality,Urine 277 mOsm/kg (300-1090)
[2016-07-01] MEDS: *HR* Morphine 2 MG/ML SYRINGE IVP PRN ×6 (00:52→21:31)
[2016-07-01] MEDS: *HR* OxyCODONE/APAP 5/325 TABLET PO PRN ×3 (08:03→20:01)
[2016-07-01] MEDS: amLODIPine 5 MG TABLET PO SCH (08:04)
[2016-07-01] MEDS: ceFAZolin 2,000 MG in D5% in Water 100 ML IVPB SCH (08:05)
[2016-07-01] MEDS: Insulin DETEMIR 100 UNIT/ML X5UNITS SQ SCH ×2 (08:13→21:29)
[2016-07-01] MEDS: Insulin LISPRO 300 UNITS/3 ML VIAL SQ SCH ×7 (08:13→21:29)
[2016-07-01] MEDS: *HR* Heparin 5,000 UNIT/ML VIAL SQ SCH ×3 (08:14→21:31)
--- NOTE | 2016-07-01 10:35 | Vascular/Endovas Progress Note ---
Date of Encounter: 07/01/16 Time of Encounter: 08:15 - Assessment and plan (1) PAD (peripheral artery disease) Current Visit: Yes Status: Chronic Patient is status post right below the knee amputation. She is postoperative day #1. She had an uneventful night. The patient will initiate physical therapy. Dressing change will be performed over the weekend. Patient will be transferred to a rehabilitation center upon discharge from the hospital. The patient will return to see me in my clinic in 6 weeks for staple removal and evaluation for prosthetic referral. - Subjective Interval history: Patient is postoperative day #1 from a right [id number] amputation. She has no complaints. Her pain is able to be controlled with oral medication. - Physical Examination General: Present: Conversant, No Apparent Distress HEENT: Present: Atraumatic Vascular: Present: Amputation(s) (Right below the knee amputation dressing is dry and intact. There is no swelling or discomfort in the right thigh proximal to the area of surgery.) - VTE Documentation of Mechanical Device: Intermittent pneumatic compression device Results 07/01/16 08:23 06/30/16 04:24 Lab Results, Last 24 hours 07/01/16 08:23 Hgb 7.9 L Consult Discharge Plan - Plan Referrals: Almas Ac DO [Primary Care Provider] - 07/08/16 1:40 pm (Please follow up as schedule...) Florentin Keating MD [Partnered Physician] - (Follow-up with Dr. Keating in 6 weeks for right BKA staple removal.)
--- NOTE | 2016-07-01 11:22 | Infectious Disease Progress No ---
Date of Encounter: 07/01/16 Time of Encounter: 11:20 - Assessment and Plan (1) Sepsis Current Visit: Yes Status: Resolved The patient initially had tachycardia, tachypnea, and bandemia. She subsequently developed leukocytosis with neutrophilic predominance. Likely secondary to right foot infection. Improved. Tachycardia and tachypnea have resolved. WBC has normalized. Blood cultures drawn 06/18/16 are negative x 2 sets. Qualifiers: Sepsis type: Streptococcus group B Qualified Code(s): A40.1 - Sepsis due to streptococcus, group B (2) Right foot infection Current Visit: Yes Status: Acute Causative organism GBS per intra-operative cultures. Bone culture was negative. MRI of the right foot and ankle showed findings consistent with Charcot arthropathy, possible OM, and fluid collections in the soft tissue of the plantar midfoot and encasing the 1st-5th metatarsal shafts. Status post I & D of multiple areas of the right foot and incision of ball cortex 06/23/[address] Lenz. Operative report reviewed. No evidence of bone abnormality, but infection quite extensive. Repeat x-ray showed gas in the soft tissue. After collaboration with the Vascular team, it was determined that the foot was likely unsalvageable and the patient underwent a right BKA 06/30/[address] Keating. All infected tissue and bone was removed. Operative report reviewed. Etiology unclear as there were no ulcers noted to the foot except for the superficial bullous lesions. Continue wound care as outlined by the Vascular team. Patient received a dose of IV Rocephin this morning. Due to the patient having a right BKA, all infected tissue and bone has been removed. Recommend discontinuing IV antibiotics at this time. (3) Cellulitis Current Visit: Yes Status: Resolved Location: Right foot and lower extremity. Resolved. Causative organism likely GBS. Qualifiers: Site of cellulitis: extremity Site of cellulitis of extremity: lower extremity Laterality: right Qualified Code(s): L03.115 - Cellulitis of right lower limb (4) Acute kidney injury Current Visit: Yes Status: Resolved Likely multifactorial --> nephrotoxic agents + CT contrast Serum creatinine peaked at 2.15. Resolved. Nephrology consulted. Dose-adjust antibiotics based on creatinine clearance. Avoid nephrotoxins as much as possible. (5) Skin bulla Current Visit: Yes Status: Resolved . (6) Exertional dyspnea Current Visit: Yes Status: Resolved Likely secondary to sepsis, but the patient's CXR did show mild CHF. Additionally, the CT of the chest revealed small bilateral pleural effusions. Resolved. Management per the primary team. (7) Foot ulcer due to secondary DM Current Visit: Yes Status: Chronic Location: Plantar aspect of the left foot overlying the 1st MTP joint. Wound culture obtained - + MSSA --> the wound does not appear clinically infected. Likely a contaminant from the skin. Continue wound care as outlined by the podiatry team. (8) Hemangioma of liver Current Visit: Yes Status: Chronic Follows with general surgery at [facility]. (9) PAD (peripheral artery disease) Current Visit: Yes Status: Chronic Vascular surgery team consulted. JULIANA normal bilaterally. Right TCPO2 diminished. Status post right BKA 06/30/[address] Keating. (10) Charcot's arthropathy Current Visit: Yes Status: Resolved (11) Insulin dependent diabetes mellitus Current Visit: Yes Status: Chronic Uncontrolled. HgA1C 12.6. Recommend aggressive glucose monitoring and control to promote wound healing and prevent re-infection. (12) Ascites Current Visit: Yes Status: Acute Status post attempted bedside paracentesis by the hospitalist team. Approx 15ml of fluid removed. IR consulted for possible repeat paracentesis. Status post CT guided paracentesis by Interventional Radiology. 2.5 liters removed. Management per the primary team. Qualifiers: Ascites type: other type Qualified Code(s): R18.8 - Other ascites - Subjective Interval history: Patient seen and examined. No acute events noted overnight. Patient lying in bed. Status post right BKA 06/30/16. Operative note reviewed and appears that the surgery went well and as expected. Complains of pain at the surgical site at this time. Denies fevers or chills. Denies chest pain, shortness of breath, or cough. Denies nausea, vomiting, or constipation. Denies diarrhea. Denies abdominal pain and states her appetite is better. Denies urinary complaints. Denies oral thrush or skin lesions. Infect Dis PN-Objective Data - Labs CBC & Chem 7: 07/01/16 08:23 06/30/16 04:24 Labs: Laboratory Results - last 24 hr 06/30/16 06/30/16 06/30/16 13:41 14:51 14:55 Hgb POC Glucose 234 H 356 H 296 H Urine Osmolality Urine Sodium Urine Potassium Urine Phosphorus 06/30/16 06/30/16 06/30/16 16:31 20:43 23:49 Hgb POC Glucose 328 H 256 H Urine Osmolality Urine Sodium Urine Potassium Urine Phosphorus 53.3 06/30/16 07/01/16 23:50 08:23 Hgb 7.9 L POC Glucose Urine Osmolality 277 L Urine Sodium 28.0 Urine Potassium < 10.0 Urine Phosphorus Cultures: Cultures 06/23/16 16:35 Wound Culture - Final Right Foot Strep agalactiae - (Group B) Strep agalactiae - (Group B)#2 06/23/16 16:35 Anaerobic Culture - Final Right Foot No anaerobes were recovered. 06/23/16 16:45 Anaerobic Culture - Final Right Foot No anaerobes were recovered. 06/23/16 16:40 Anaerobic Culture - Final Right Foot No anaerobes were recovered. 06/23/16 16:45 Surgical Biopsy Culture - Final Right Foot 06/23/16 16:40 Wound Culture - Final Right Foot Strep agalactiae - (Group B) 06/19/16 10:30 Wound Culture - Final Left Foot Staphylococcus aureus Serology 06/30/16 06/30/16 06/30/16 Range/Units 23:50 23:49 00:05 Ur Eosinophil Smear (None Seen) % Urine Osmolality 277 L (300-1090) mOsm/kg Urine Creatinine 56 mg/dL Urine Microalbumin mg/L Microalb/Creat Ratio (0-30) Urine Sodium 28.0 mEq/L Urine Potassium < 10.0 mEq/L Urine Chloride mEq/L Urine Phosphorus 53.3 mg/dL Urine Calcium mg/dL Stl C. diff Tox B Gene (Negative) Hepatitis A IgM Ab (Nonreactive) Hep Bs Antigen (Nonreactive) Hep B Core IgM Ab (Nonreactive) Hepatitis C Ab Screen (Nonreactive) HIV Ag/Ab Combo Qual (Nonreactive) 06/26/16 06/26/16 06/24/16 Range/Units 05:12 00:01 06:07 Ur Eosinophil Smear (None Seen) % Urine Osmolality (300-1090) mOsm/kg Urine Creatinine mg/dL Urine Microalbumin mg/L Microalb/Creat Ratio (0-30) Urine Sodium mEq/L Urine Potassium mEq/L Urine Chloride mEq/L Urine Phosphorus mg/dL Urine Calcium mg/dL Stl C. diff Tox B Gene Negative (Negative) Hepatitis A IgM Ab Nonreactive (Nonreactive) Hep Bs Antigen Nonreactive (Nonreactive) Hep B Core IgM Ab Nonreactive (Nonreactive) Hepatitis C Ab Screen Nonreactive (Nonreactive) HIV Ag/Ab Combo Qual Nonreactive (Nonreactive) 06/23/16 06/23/16 06/23/16 Range/Units 11:37 11:37 08:24 Ur Eosinophil Smear 4 H (None Seen) % Urine Osmolality (300-1090) mOsm/kg Urine Creatinine 35 mg/dL Urine Microalbumin 28 mg/L Microalb/Creat Ratio 80 H (0-30) Urine Sodium mEq/L Urine Potassium mEq/L Urine Chloride 60 mEq/L Urine Phosphorus mg/dL Urine Calcium < 2.0 mg/dL Stl C. diff Tox B Gene (Negative) Hepatitis A IgM Ab (Nonreactive) Hep Bs Antigen (Nonreactive) Hep B Core IgM Ab (Nonreactive) Hepatitis C Ab Screen (Nonreactive) HIV Ag/Ab Combo Qual (Nonreactive) Exam - Constitutional Vitals: Temp Pulse Resp BP Pulse Ox 98 F 90 18 147/72 98 07/01/16 04:25 07/01/16 04:25 07/01/16 04:25 07/01/16 04:25 07/01/16 04:25 General appearance: average body habitus, cooperative, no acute distress - Head Head exam: Present: atraumatic, normal inspection, normocephalic - Eye Eye exam: Present: EOMI, normal appearance, PERRL Pupils: Present: normal accommodation - ENT ENT exam: Present: mucous membranes moist - Neck Neck exam: Present: normal inspection - Respiratory Respiratory exam: Present: CTAB. Absent: rales, respiratory distress, rhonchi, wheezes - Cardiovascular Cardiovascular exam: Present: RRR, +S1, +S2 - GI/Abdominal GI/Abdominal exam: Present: distended (improved), normal bowel sounds, soft. Absent: tenderness - Extremities Exam Extremities exam: Present: pedal edema (1+ BLE), tenderness (right BKA stump) Additional comments: Right BKA stump dressing C/D/I. - Neurological Exam Neurological exam: Present: alert, oriented X3, no focal deficits - Psychiatric Psychiatric exam: Present: normal affect, normal mood - Skin Skin exam: Present: dry, intact, normal color, warm - VTE Documentation of Mechanical Device: Intermittent pneumatic compression device Consult Discharge Plan - Plan Referrals: Almas Ac DO [Primary Care Provider] - 07/08/16 1:40 pm (Please follow up as schedule...) Florentin Keating MD [Partnered Physician] - (Follow-up with Dr. Keating in 6 weeks for right BKA staple removal.)
--- NOTE | 2016-07-01 11:40 | Internal Med Progress Note ---
Date of Encounter: 07/01/16 Time of Encounter: 11:40 - Assessment and plan (1) Sepsis Current Visit: Yes Status: Resolved Assessment and plan: Resolved Qualifiers: Sepsis type: Streptococcus group B Qualified Code(s): A40.1 - Sepsis due to streptococcus, group B (2) Diabetic foot ulcer Current Visit: Yes Status: Chronic Assessment and plan: L foot wound from MSSA, Right foot Causative organism GBS per intra-operative cultures. Bone culture was negative. MRI of the right foot and ankle showed findings consistent with Charcot arthropathy, possible OM, and fluid collections in the soft tissue of the plantar midfoot and encasing the 1st-5th metatarsal shafts. s/p BKA of right LE Continue LLE wound dressing Qualifiers: Diabetic foot ulcer location: unspecified part of foot Diabetes mellitus type: type 2 Laterality: left Non-pressure ulcer stage: limited to breakdown of skin Qualified Code(s): E11.621 - Type 2 diabetes mellitus with foot ulcer; L97.521 - Non-pressure chronic ulcer of other part of left foot limited to breakdown of skin (3) Hemangioma of liver Current Visit: Yes Status: Chronic Assessment and plan: CT abdomen demonstrated possible hemangioma that takes up a large portion of liver Patient states that she follows with Dr. Ch at [facility] and has repeat imaging every 2 years to monitor s/p 2.6 L ascitic fluid removed by IR Will request additional therapeutic drainage prior to discharge (4) Insulin dependent diabetes mellitus Current Visit: Yes Status: Chronic Assessment and plan: A1C 12.5, FS improving on current regimen Continue levemir, prandial insulin, continue correctional dose ADA diet Continue to monitor FS (5) Cellulitis Current Visit: Yes Status: Resolved Assessment and plan: As in sepsis Qualifiers: Site of cellulitis: extremity Site of cellulitis of extremity: lower extremity Laterality: right Qualified Code(s): L03.115 - Cellulitis of right lower limb (6) Hypomagnesemia Current Visit: Yes Status: Resolved Assessment and plan: Repleted Continue to monitor (7) PAD (peripheral artery disease) Current Visit: Yes Status: Chronic Assessment and plan: Vascular eval noted and appreciated (8) Charcot's arthropathy Current Visit: Yes Status: Resolved (9) Acute kidney injury Current Visit: Yes Status: Resolved Assessment and plan: Resolved Suspect injury is secondary to sepsis, vancomycin, and contrast-induced nephropathy (10) Osteomyelitis Current Visit: Yes Status: Suspected Assessment and plan: s/p R BKA, hemodynamically stable Qualifiers: Osteomyelitis type: chronic multifocal Osteomyelitis location: foot Laterality: right Qualified Code(s): M86.371 - Chronic multifocal osteomyelitis, right ankle and foot (11) Anemia Current Visit: Yes Status: Chronic Assessment and plan: Anemia of chronic disease and superimposed iron deficiency Slightly worse Hb today 7.9 due to post-surgery Vit B12 and folate WNL Type and screen is done Hemodynamically stable Continue to monitor Will transfuse prn Hb <7, or symptoms Qualifiers: Anemia type: unspecified type Qualified Code(s): D64.9 - Anemia, unspecified (12) Hypertension Current Visit: Yes Status: Chronic Assessment and plan: Continue Norvasc 5mg daily Qualifiers: Hypertension type: essential hypertension Qualified Code(s): I10 - Essential (primary) hypertension - Subjective Interval history: Patient seen at bedside She is being managed for sepsis secondary to Right foot gangrene and osteomyelitis, L infected wound, Vancomycin and contrast induced JULISSA, Infected LE ulcers and R foot gangrene, hepatic hemangioma with cirrhosis POD 1 S/P Right BKA, doing well, pain is well controlled She has received >10 days of antibiotics, will discontinue especially since the source of infection has been removed and her sepsis has resolved - Constitutional Vitals: Temp Pulse Resp BP Pulse Ox 98 F 90 18 147/72 98 07/01/16 04:25 07/01/16 04:25 07/01/16 04:25 07/01/16 04:25 07/01/16 04:25 General appearance: Present: cooperative, A&O X 3, pleasant, no acute distress, answers questions appropriately - Head Head exam: Present: atraumatic, normocephalic - Eye Eye exam: Present: PERRL, conjuntiva pink, sclera anicteric Pupils: Present: PERRL - ENT ENT exam: Present: mucous membranes moist - Neck Neck exam general surgery: Present: supple, trachea midline. Absent: lymphadenopathy - Respiratory Respiratory exam: Present: CTAB - Cardiovascular Cardiovascular exam: Present: RRR, +S1, +S2. Absent: diastolic murmur, gallop, rubs, systolic murmur - GI/Abdominal GI/Abdominal exam: Present: distended (ascites), normal bowel sounds, no peritoneal signs. Absent: mass, tenderness - Extremities Exam Additional comments: s/p R BKA, dressing clean and dry, Left plantar surface dressing clean and dry - Neurological Exam Neurological exam: Present: alert, CN II-XII intact, oriented X3, no focal deficits. Absent: pronater drift, facial droop, speech deficit - Skin Skin exam: Present: dry Internal Medicine: Result - Labs CBC & Chem 7: 07/01/16 08:23 06/30/16 04:24 Labs: Short CBC 07/01/16 Range/Units 08:23 Hgb 7.9 L (11.5-15.4) g/dL - ABG Interpretation ABG results: PT/INR, D-dimer PT 14.6 Seconds (9.4-12.1) H 06/26/16 05:12 D-Dimer 6782 ng/mLFEU (0-500) H 06/18/16 15:47 - VTE Documentation of Mechanical Device: Intermittent pneumatic compression device Consult Discharge Plan - Plan Referrals: Almas Ac DO [Primary Care Provider] - 07/08/16 1:40 pm (Please follow up as schedule...) Florentin Keating MD [Partnered Physician] - (Follow-up with Dr. Keating in 6 weeks for right BKA staple removal.)
[2016-07-02 04:52] LABS: Basophils % 0.1 %; Eosinophils # 0.1 K/mcL (0.0-0.6); Eosinophils % 1.1 %; Hematocrit 23.9 % (35.3-44.9); Hemoglobin 7.1 g/dL (11.5-15.4); Immature Granulocytes % 2.1 % (0-4); Lymphocytes # 1.8 K/mcL (0.6-4.6); Mean Corpuscular HGB Conc 29.7 g/dL (31.6-35.5); Mean Corpuscular Hemoglobin 24.2 pg (28.0-33.3); Mean Corpuscular Volume 81.6 fL (83.0-100.0); Mean Platelet Volume 9.5 fL (9.4-12.4); Monocytes # 0.4 K/mcL (0.0-1.3); Monocytes % 4.2 %; Neutrophils # 6.8 K/mcL (1.6-8.9); Platelet Count 251 K/mcL (140-400); Red Blood Count 2.93 M/mcL (3.82-4.97); Red Cell Distribution Width 17.1 % (11.5-14.5); Segmented Neutrophils % 73.5 %
[2016-07-02] MEDS: *HR* OxyCODONE/APAP 5/325 TABLET PO PRN ×3 (05:41→22:49)
[2016-07-02] MEDS: *HR* Heparin 5,000 UNIT/ML VIAL SQ SCH ×3 (05:41→22:44)
[2016-07-02] MEDS: Insulin LISPRO 300 UNITS/3 ML VIAL SQ SCH ×7 (07:55→22:47)
[2016-07-02] MEDS: Insulin DETEMIR 100 UNIT/ML X5UNITS SQ SCH ×2 (07:55→22:46)
[2016-07-02] MEDS: amLODIPine 5 MG TABLET PO SCH (07:58)
[2016-07-02] MEDS: *HR* Morphine 2 MG/ML SYRINGE IVP PRN ×2 (08:07→17:30)
--- NOTE | 2016-07-02 10:01 | Internal Med Progress Note ---
Date of Encounter: 07/02/16 Time of Encounter: 10:01 - Assessment and plan (1) Sepsis Current Visit: Yes Status: Resolved Assessment and plan: Resolved Qualifiers: Sepsis type: Streptococcus group B Qualified Code(s): A40.1 - Sepsis due to streptococcus, group B (2) Diabetic foot ulcer Current Visit: Yes Status: Chronic Assessment and plan: L foot wound from MSSA, Right foot Causative organism GBS per intra-operative cultures. Bone culture was negative. MRI of the right foot and ankle showed findings consistent with Charcot arthropathy, possible OM, and fluid collections in the soft tissue of the plantar midfoot and encasing the 1st-5th metatarsal shafts. s/p BKA of right LE Continue LLE wound dressing Qualifiers: Diabetic foot ulcer location: unspecified part of foot Diabetes mellitus type: type 2 Laterality: left Non-pressure ulcer stage: limited to breakdown of skin Qualified Code(s): E11.621 - Type 2 diabetes mellitus with foot ulcer; L97.521 - Non-pressure chronic ulcer of other part of left foot limited to breakdown of skin (3) Hemangioma of liver Current Visit: Yes Status: Chronic Assessment and plan: CT abdomen demonstrated possible hemangioma that takes up a large portion of liver Patient states that she follows with Dr. Ch at [facility] and has repeat imaging every 2 years to monitor s/p 2.6 L ascitic fluid removed by IR IR consulted for therapeutic drainage today (4) Insulin dependent diabetes mellitus Current Visit: Yes Status: Chronic Assessment and plan: A1C 12.5, FS improving on current regimen Continue levemir, prandial insulin, continue correctional dose ADA diet Continue to monitor FS (5) Cellulitis Current Visit: Yes Status: Resolved Assessment and plan: As in sepsis Qualifiers: Site of cellulitis: extremity Site of cellulitis of extremity: lower extremity Laterality: right Qualified Code(s): L03.115 - Cellulitis of right lower limb (6) Hypomagnesemia Current Visit: Yes Status: Resolved Assessment and plan: Repleted Continue to monitor (7) PAD (peripheral artery disease) Current Visit: Yes Status: Chronic Assessment and plan: Vascular eval noted and appreciated (8) Charcot's arthropathy Current Visit: Yes Status: Resolved (9) Acute kidney injury Current Visit: Yes Status: Resolved Assessment and plan: Resolved Suspect injury is secondary to sepsis, vancomycin, and contrast-induced nephropathy (10) Osteomyelitis Current Visit: Yes Status: Suspected Assessment and plan: s/p R BKA, hemodynamically stable Qualifiers: Osteomyelitis type: chronic multifocal Osteomyelitis location: foot Laterality: right Qualified Code(s): M86.371 - Chronic multifocal osteomyelitis, right ankle and foot (11) Anemia Current Visit: Yes Status: Chronic Assessment and plan: Anemia of chronic disease and superimposed iron deficiency Slightly worse Hb today 7.1 due to post-surgery Vit B12 and folate WNL Type and screen is done Transfuse with 1 unit RBC Hemodynamically stable Rpt Hb a.m Qualifiers: Anemia type: unspecified type Qualified Code(s): D64.9 - Anemia, unspecified (12) Hypertension Current Visit: Yes Status: Chronic Assessment and plan: Continue Norvasc 5mg daily Qualifiers: Hypertension type: essential hypertension Qualified Code(s): I10 - Essential (primary) hypertension - Subjective Interval history: Patient seen at bedside She is being managed for sepsis secondary to Right foot gangrene and osteomyelitis, L infected wound, Vancomycin and contrast induced JULISSA, Infected LE ulcers and R foot gangrene, hepatic hemangioma with cirrhosis POD 2 S/P Right BKA, doing well, pain is well controlled She has received >10 days of antibiotics, antibiotics discontinued especially since the source of infection has been removed and her sepsis has resolved Hemoglobin and is monitoring has again dropped to 7.1 Patient seen at bedside complains of restlessness denies dizziness she is occasionally tachycardic. Will transfuse with 1 unit RBC FS uncontrolled, will adjust insulin - Constitutional Vitals: Temp Pulse Resp BP Pulse Ox 98 F 92 16 124/59 95 07/02/16 06:57 07/02/16 06:57 07/02/16 06:57 07/02/16 06:57 07/02/16 06:57 General appearance: Present: cooperative, A&O X 3, pleasant, no acute distress, answers questions appropriately - Head Head exam: Present: atraumatic, normocephalic - Eye Eye exam: Present: PERRL, conjuntiva pink, sclera anicteric Pupils: Present: PERRL - Neck Neck exam general surgery: Present: supple, trachea midline. Absent: lymphadenopathy - Respiratory Respiratory exam: Present: CTAB. Absent: accessory muscle use, rales, rhonchi, wheezes - Cardiovascular Cardiovascular exam: Present: RRR, +S1, +S2. Absent: diastolic murmur, gallop, rubs, systolic murmur - GI/Abdominal GI/Abdominal exam: Present: distended, normal bowel sounds, soft, no peritoneal signs. Absent: tenderness - Extremities Exam Extremities exam: Present: warm, radial pulses palpable and symetrical. Absent : calf tenderness, cyanotic, pedal edema Additional comments: s/p R BKA, dressing clean and dry, Left plantar surface dressing clean and dry - Neurological Exam Neurological exam: Present: alert, CN II-XII intact, oriented X3, no focal deficits. Absent: pronater drift, facial droop, speech deficit - Skin Skin exam: Present: dry, intact Internal Medicine: Result - Labs CBC & Chem 7: 07/02/16 03:56 06/30/16 04:24 Labs: Short CBC 07/02/16 Range/Units 03:56 WBC 9.3 (4.3-11.1) K/mcL Hgb 7.1 L (11.5-15.4) g/dL Hct 23.9 L (35.3-44.9) % Plt Count 251 (140-400) K/mcL Neutrophils # 6.8 (1.6-8.9) K/mcL - ABG Interpretation ABG results: PT/INR, D-dimer PT 14.6 Seconds (9.4-12.1) H 06/26/16 05:12 D-Dimer [id number] ng/mLFEU (0-500) H 06/18/16 15:47 - VTE Documentation of Mechanical Device: Intermittent pneumatic compression device Consult Discharge Plan - Plan Referrals: Almas Ac DO [Primary Care Provider] - 07/08/16 1:40 pm (Please follow up as schedule...) Florentin Keating MD [Partnered Physician] - (Follow-up with Dr. Keating in 6 weeks for right BKA staple removal.)
[2016-07-02] MEDS ORDERED: 0.9 % Sodium Chloride 250 ML ONE (11:43)
[2016-07-03] MEDS: *HR* Morphine 2 MG/ML SYRINGE IVP PRN ×5 (02:27→22:37)
[2016-07-03 04:50] LABS: Basophils % 0.2 %; Eosinophils # 0.1 K/mcL (0.0-0.6); Eosinophils % 1.3 %; Hematocrit 26.1 % (35.3-44.9); Hemoglobin 7.9 g/dL (11.5-15.4); Immature Granulocytes % 1.7 % (0-4); Lymphocytes # 1.8 K/mcL (0.6-4.6); Lymphocytes % 21.1 %; Mean Corpuscular HGB Conc 30.3 g/dL (31.6-35.5); Mean Corpuscular Hemoglobin 24.5 pg (28.0-33.3); Mean Corpuscular Volume 80.8 fL (83.0-100.0); Mean Platelet Volume 9.4 fL (9.4-12.4); Monocytes # 0.4 K/mcL (0.0-1.3); Monocytes % 4.6 %; Neutrophils # 6.2 K/mcL (1.6-8.9); Platelet Count 251 K/mcL (140-400); Red Blood Count 3.23 M/mcL (3.82-4.97); Red Cell Distribution Width 16.6 % (11.5-14.5); Segmented Neutrophils % 71.1 %
[2016-07-03] MEDS: *HR* Heparin 5,000 UNIT/ML VIAL SQ SCH ×3 (06:51→22:53)
[2016-07-03] MEDS: Insulin DETEMIR 100 UNIT/ML X5UNITS SQ SCH ×2 (08:20→22:54)
[2016-07-03] MEDS: Insulin LISPRO 300 UNITS/3 ML VIAL SQ SCH ×7 (08:21→22:54)
[2016-07-03] MEDS: amLODIPine 5 MG TABLET PO SCH (08:21)
[2016-07-03] MEDS ORDERED: Acetaminophen 325 MG TABLET PO PRN (11:42)
--- NOTE | 2016-07-03 11:43 | Internal Med Progress Note ---
Date of Encounter: 07/03/16 Time of Encounter: 11:43 - Assessment and plan (1) Sepsis Current Visit: Yes Status: Resolved Assessment and plan: Resolved Qualifiers: Sepsis type: Streptococcus group B Qualified Code(s): A40.1 - Sepsis due to streptococcus, group B (2) Diabetic foot ulcer Current Visit: Yes Status: Chronic Assessment and plan: L foot wound from MSSA, Right foot Causative organism GBS per intra-operative cultures. Bone culture was negative. MRI of the right foot and ankle showed findings consistent with Charcot arthropathy, possible OM, and fluid collections in the soft tissue of the plantar midfoot and encasing the 1st-5th metatarsal shafts. s/p BKA of right LE. POD 3 Continue LLE wound dressing Qualifiers: Diabetic foot ulcer location: unspecified part of foot Diabetes mellitus type: type 2 Laterality: left Non-pressure ulcer stage: limited to breakdown of skin Qualified Code(s): E11.621 - Type 2 diabetes mellitus with foot ulcer; L97.521 - Non-pressure chronic ulcer of other part of left foot limited to breakdown of skin (3) Hemangioma of liver Current Visit: Yes Status: Chronic Assessment and plan: CT abdomen demonstrated possible hemangioma that takes up a large portion of liver Patient states that she follows with Dr. Ch at [facility] and has repeat imaging every 2 years to monitor s/p 2.6 L ascitic fluid removed by IR IR consulted for therapeutic drainage prior to discharge (4) Insulin dependent diabetes mellitus Current Visit: Yes Status: Chronic Assessment and plan: A1C 12.5, FS improving on current regimen Continue levemir, prandial insulin, continue correctional dose ADA diet Continue to monitor FS (5) Cellulitis Current Visit: Yes Status: Resolved Assessment and plan: As in sepsis Qualifiers: Site of cellulitis: extremity Site of cellulitis of extremity: lower extremity Laterality: right Qualified Code(s): L03.115 - Cellulitis of right lower limb (6) Hypomagnesemia Current Visit: Yes Status: Resolved Assessment and plan: Repleted Continue to monitor (7) PAD (peripheral artery disease) Current Visit: Yes Status: Chronic Assessment and plan: Vascular eval noted and appreciated (8) Charcot's arthropathy Current Visit: Yes Status: Resolved (9) Acute kidney injury Current Visit: Yes Status: Resolved Assessment and plan: Resolved Suspect injury is secondary to sepsis, vancomycin, and contrast-induced nephropathy (10) Osteomyelitis Current Visit: Yes Status: Suspected Assessment and plan: s/p R BKA, hemodynamically stable Qualifiers: Osteomyelitis type: chronic multifocal Osteomyelitis location: foot Laterality: right Qualified Code(s): M86.371 - Chronic multifocal osteomyelitis, right ankle and foot (11) Anemia Current Visit: Yes Status: Chronic Assessment and plan: Anemia of chronic disease and superimposed iron deficiency Slightly worse Hb 4.22 7.1 due to post-surgery Vit B12 and folate WNL s/p 1 unit RBC, HB 7.9 this a.m Hemodynamically stable Rpt Hb a.m Qualifiers: Anemia type: unspecified type Qualified Code(s): D64.9 - Anemia, unspecified (12) Hypertension Current Visit: Yes Status: Chronic Assessment and plan: Increase Norvasc to 10mg daily Qualifiers: Hypertension type: essential hypertension Qualified Code(s): I10 - Essential (primary) hypertension - Subjective Interval history: Patient seen at bedside She is being managed for sepsis secondary to Right foot gangrene and osteomyelitis, L infected wound, Vancomycin and contrast induced JULISSA, Infected LE ulcers and R foot gangrene, hepatic hemangioma with cirrhosis POD 3 S/P Right BKA, doing well, pain is well controlled She has received >10 days of antibiotics, antibiotics discontinued especially since the source of infection has been removed and her sepsis has resolved Hemoglobin yday 7l.1, s/p 1 unit RBC, Hb today 7.9 Patient seen at bedside denies new complains - Constitutional Vitals: Temp Pulse Resp BP Pulse Ox 98.1 F 98 16 157/72 97 07/03/16 10:37 07/03/16 10:37 07/03/16 10:37 07/03/16 10:37 07/03/16 10:37 General appearance: Present: cooperative, A&O X 3, pleasant, no acute distress, answers questions appropriately - Head Head exam: Present: atraumatic, normocephalic - Eye Eye exam: Present: PERRL, conjuntiva pink, sclera anicteric Pupils: Present: PERRL - Neck Neck exam general surgery: Present: supple, trachea midline. Absent: lymphadenopathy - Respiratory Respiratory exam: Present: CTAB. Absent: accessory muscle use, rales, rhonchi, wheezes - Cardiovascular Cardiovascular exam: Present: RRR, +S1, +S2. Absent: diastolic murmur, gallop, rubs, systolic murmur - GI/Abdominal GI/Abdominal exam: Present: distended (ascitic fluid draining and soaking dressing), normal bowel sounds, soft, no peritoneal signs. Absent: tenderness - Extremities Exam Extremities exam: Present: warm, radial pulses palpable and symetrical. Absent : calf tenderness, cyanotic, pedal edema Additional comments: s/p R BKA Wound inspected, well apposed, sutures intact, no erythema Left foot dressing clean and dry - Neurological Exam Neurological exam: Present: alert, CN II-XII intact, oriented X3, no focal deficits. Absent: pronater drift, facial droop, speech deficit - Skin Skin exam: Present: dry Internal Medicine: Result - Labs CBC & Chem 7: 07/03/16 04:34 06/30/16 04:24 Labs: Short CBC 07/03/16 Range/Units 04:34 WBC 8.7 (4.3-11.1) K/mcL Hgb 7.9 L (11.5-15.4) g/dL Hct 26.1 L (35.3-44.9) % Plt Count 251 (140-400) K/mcL Neutrophils # 6.2 (1.6-8.9) K/mcL - ABG Interpretation ABG results: PT/INR, D-dimer PT 14.6 Seconds (9.4-12.1) H 06/26/16 05:12 D-Dimer 6782 ng/mLFEU (0-500) H 06/18/16 15:47 - VTE Documentation of Mechanical Device: Intermittent pneumatic compression device Consult Discharge Plan - Plan Referrals: Almas Ac DO [Primary Care Provider] - 07/08/16 1:40 pm (Please follow up as schedule...) Florentin Keating MD [Partnered Physician] - (Follow-up with Dr. Keating in 6 weeks for right BKA staple removal.)
--- NOTE | 2016-07-03 12:21 | Vascular/Endovas Progress Note ---
Date of Encounter: 07/03/16 Time of Encounter: 12:00 - Subjective Procedure(s) Performed: Right BKA Interval history: Very little pain. No shakes,chills,or fever. I took down the dressing. The flap is perfect with very little swelling lizet intact Vital Signs, Last 4 Hours Temp Pulse Resp BP Pulse Ox 07/03/16 10:37 98.1 F 98 16 157/72 97 07/03/16 08:35 98 - Physical Examination General: Present: No Apparent Distress Cardiac: Present: Reg Rate and Rhythm, Normal S1 and S2, No Murmur Lungs: Present: Normal Breath Sounds, No Wheeze, Rales, Rhonchi Abdomen: Present: Soft, Non-tender Other: R BKA flap is perfect. Very little swelling and no drainage - VTE Documentation of Mechanical Device: Intermittent pneumatic compression device Results 07/03/16 04:34 06/30/16 04:24 Lab Results, Last 24 hours 07/03/16 04:34 WBC 8.7 Hgb 7.9 L Hct 26.1 L Plt Count 251 Consult Discharge Plan - Plan Referrals: Almas Ac DO [Primary Care Provider] - 07/08/16 1:40 pm (Please follow up as schedule...) Florentin Keating MD [Partnered Physician] - (Follow-up with Dr. Keating in 6 weeks for right BKA staple removal.)
[2016-07-04] MEDS: *HR* OxyCODONE/APAP 5/325 TABLET PO PRN ×2 (02:35→08:30)
[2016-07-04 05:18] LABS: Basophils % 0.2 %; Eosinophils # 0.1 K/mcL (0.0-0.6); Eosinophils % 1.4 %; Hematocrit 26.2 % (35.3-44.9); Hemoglobin 7.7 g/dL (11.5-15.4); Immature Granulocytes % 1.6 % (0-4); Lymphocytes # 1.8 K/mcL (0.6-4.6); Lymphocytes % 20.2 %; Mean Corpuscular HGB Conc 29.4 g/dL (31.6-35.5); Mean Corpuscular Hemoglobin 24.2 pg (28.0-33.3); Mean Corpuscular Volume 82.4 fL (83.0-100.0); Mean Platelet Volume 9.4 fL (9.4-12.4); Monocytes # 0.4 K/mcL (0.0-1.3); Monocytes % 4.4 %; Neutrophils # 6.2 K/mcL (1.6-8.9); Platelet Count 254 K/mcL (140-400); Red Blood Count 3.18 M/mcL (3.82-4.97); Red Cell Distribution Width 16.8 % (11.5-14.5); Segmented Neutrophils % 72.2 %
[2016-07-04] MEDS: *HR* Heparin 5,000 UNIT/ML VIAL SQ SCH ×2 (06:19→13:51)
[2016-07-04] MEDS: Insulin DETEMIR 100 UNIT/ML X5UNITS SQ SCH (08:24)
[2016-07-04] MEDS: Insulin LISPRO 300 UNITS/3 ML VIAL SQ SCH ×4 (08:24→11:53)
[2016-07-04] MEDS ORDERED: *HR* OxyCODONE/APAP 10/325 TABLET PO PRN ×2 (08:41→09:48)
[2016-07-04] MEDS ORDERED: amLODIPine 5 MG TABLET PO SCH (09:00)
--- NOTE | 2016-07-04 09:47 | Internal Med Progress Note ---
Date of Encounter: 07/04/16 Time of Encounter: 09:46 - Assessment and plan (1) Sepsis Current Visit: Yes Status: Resolved Qualifiers: Sepsis type: Streptococcus group B Qualified Code(s): A40.1 - Sepsis due to streptococcus, group B (2) Diabetic foot ulcer Current Visit: Yes Status: Chronic Qualifiers: Diabetic foot ulcer location: unspecified part of foot Diabetes mellitus type: type 2 Laterality: left Non-pressure ulcer stage: limited to breakdown of skin Qualified Code(s): E11.621 - Type 2 diabetes mellitus with foot ulcer; L97.521 - Non-pressure chronic ulcer of other part of left foot limited to breakdown of skin (3) Hemangioma of liver Current Visit: Yes Status: Chronic (4) Insulin dependent diabetes mellitus Current Visit: Yes Status: Chronic (5) Cellulitis Current Visit: Yes Status: Resolved Qualifiers: Site of cellulitis: extremity Site of cellulitis of extremity: lower extremity Laterality: right Qualified Code(s): L03.115 - Cellulitis of right lower limb (6) Hypomagnesemia Current Visit: Yes Status: Resolved (7) PAD (peripheral artery disease) Current Visit: Yes Status: Chronic (8) Charcot's arthropathy Current Visit: Yes Status: Resolved (9) Acute kidney injury Current Visit: Yes Status: Resolved (10) Osteomyelitis Current Visit: Yes Status: Suspected Qualifiers: Osteomyelitis type: chronic multifocal Osteomyelitis location: foot Laterality: right Qualified Code(s): M86.371 - Chronic multifocal osteomyelitis, right ankle and foot (11) Anemia Current Visit: Yes Status: Chronic Qualifiers: Anemia type: unspecified type Qualified Code(s): D64.9 - Anemia, unspecified (12) Hypertension Current Visit: Yes Status: Chronic Qualifiers: Hypertension type: essential hypertension Qualified Code(s): I10 - Essential (primary) hypertension - Subjective Interval history: Patient seen at bedside She is being managed for sepsis secondary to Right foot gangrene and osteomyelitis, L infected wound, Vancomycin and contrast induced JULISSA, Infected LE ulcers and R foot gangrene, hepatic hemangioma with cirrhosis POD 4 S/P Right BKA, doing well, pain is well controlled She has received >10 days of antibiotics, antibiotics discontinued especially since the source of infection has been removed and her sepsis has resolved HB is stable For therapeutic paracentesis today SW consulted for placement Change IV pain meds to po - Constitutional Vitals: Temp Pulse Resp BP Pulse Ox 97.8 F 90 18 151/72 96 07/04/16 07:44 07/04/16 07:44 07/04/16 07:44 07/04/16 07:44 07/04/16 08:33 General appearance: Present: cooperative, A&O X 3, pleasant, no acute distress, answers questions appropriately - Head Head exam: Present: atraumatic, normocephalic - Eye Eye exam: Present: PERRL, conjuntiva pink, sclera anicteric Pupils: Present: PERRL - Neck Neck exam general surgery: Present: supple, trachea midline. Absent: lymphadenopathy - Respiratory Respiratory exam: Present: CTAB. Absent: accessory muscle use, rales, rhonchi, wheezes - Cardiovascular Cardiovascular exam: Present: RRR, +S1, +S2. Absent: diastolic murmur, gallop, rubs, systolic murmur - GI/Abdominal GI/Abdominal exam: Present: distended, normal bowel sounds, soft, no peritoneal signs. Absent: tenderness - Extremities Exam Extremities exam: Present: warm, radial pulses palpable and symetrical. Absent : calf tenderness, cyanotic, pedal edema Additional comments: s/p R BKA Wound inspected, well apposed, sutures intact, no erythema Left foot dressing clean and dry - Neurological Exam Neurological exam: Present: alert, CN II-XII intact, oriented X3, no focal deficits. Absent: pronater drift, facial droop, speech deficit - Skin Skin exam: Present: dry, intact Internal Medicine: Result - Labs CBC & Chem 7: 07/04/16 04:23 06/30/16 04:24 Labs: Short CBC 07/04/16 Range/Units 04:23 WBC 8.7 (4.3-11.1) K/mcL Hgb 7.7 L (11.5-15.4) g/dL Hct 26.2 L (35.3-44.9) % Plt Count 254 (140-400) K/mcL Neutrophils # 6.2 (1.6-8.9) K/mcL - ABG Interpretation ABG results: PT/INR, D-dimer PT 14.6 Seconds (9.4-12.1) H 06/26/16 05:12 D-Dimer 6782 ng/mLFEU (0-500) H 06/18/16 15:47 - VTE Documentation of Mechanical Device: Intermittent pneumatic compression device Consult Discharge Plan - Plan Referrals: Almas Ac DO [Primary Care Provider] - 07/08/16 1:40 pm (Please follow up as schedule...) Florentin Keating MD [Partnered Physician] - (Follow-up with Dr. Keating in 6 weeks for right BKA staple removal.)
[2016-07-04] MEDS ORDERED: Acetaminophen 325 MG TABLET PO PRN (09:49)
--- NOTE | 2016-07-04 11:40 | Infectious Disease Progress No ---
Date of Encounter: 07/04/16 Time of Encounter: 11:38 - Assessment and Plan (1) Sepsis Current Visit: Yes Status: Resolved The patient initially had tachycardia, tachypnea, and bandemia. She subsequently developed leukocytosis with neutrophilic predominance. Likely secondary to right foot infection. Resolved. Tachycardia and tachypnea have resolved. WBC has normalized. Blood cultures drawn 06/18/16 are negative x 2 sets. Qualifiers: Sepsis type: Streptococcus group B Qualified Code(s): A40.1 - Sepsis due to streptococcus, group B (2) Right foot infection Current Visit: Yes Status: Acute Causative organism GBS per intra-operative cultures. Bone culture was negative. MRI of the right foot and ankle showed findings consistent with Charcot arthropathy, possible OM, and fluid collections in the soft tissue of the plantar midfoot and encasing the 1st-5th metatarsal shafts. Status post I & D of multiple areas of the right foot and incision of ball cortex 06/23/[address] Lenz. Operative report reviewed. No evidence of bone abnormality, but infection quite extensive. Repeat x-ray showed gas in the soft tissue. After collaboration with the Vascular team, it was determined that the foot was likely unsalvageable and the patient underwent a right BKA 06/30/[address] Keating. All infected tissue and bone was removed. Operative report reviewed. Etiology unclear as there were no ulcers noted to the foot except for the superficial bullous lesions. Continue wound care as outlined by the Vascular team. Patient has completed IV antibiotic therapy and all infected tissue has been removed. No further indication for antibiotics. No further recommendations from the ID team. Will sign off. Please re-consult if needed. (3) Cellulitis Current Visit: Yes Status: Resolved Location: Right foot and lower extremity. Resolved. Causative organism likely GBS. Qualifiers: Site of cellulitis: extremity Site of cellulitis of extremity: lower extremity Laterality: right Qualified Code(s): L03.115 - Cellulitis of right lower limb (4) Acute kidney injury Current Visit: Yes Status: Resolved Likely multifactorial --> nephrotoxic agents + CT contrast Resolved. (5) Skin bulla Current Visit: Yes Status: Resolved (6) Exertional dyspnea Current Visit: Yes Status: Resolved Likely secondary to sepsis, but the patient's CXR did show mild CHF. Additionally, the CT of the chest revealed small bilateral pleural effusions. Resolved. Management per the primary team. (7) Foot ulcer due to secondary DM Current Visit: Yes Status: Chronic Location: Plantar aspect of the left foot overlying the 1st MTP joint. Wound culture obtained - + MSSA --> the wound does not appear clinically infected. Likely a contaminant from the skin. Continue wound care as outlined by the podiatry team. (8) Hemangioma of liver Current Visit: Yes Status: Chronic Follows with general surgery at [facility]. (9) PAD (peripheral artery disease) Current Visit: Yes Status: Chronic Vascular surgery team consulted. JULIANA normal bilaterally. Right TCPO2 diminished. Status post right BKA 06/30/[address] Keating. (10) Charcot's arthropathy Current Visit: Yes Status: Resolved (11) Insulin dependent diabetes mellitus Current Visit: Yes Status: Chronic Uncontrolled. HgA1C 12.6. Recommend aggressive glucose monitoring and control to promote wound healing and prevent re-infection. (12) Ascites Current Visit: Yes Status: Acute Status post attempted bedside paracentesis by the hospitalist team. Approx 15ml of fluid removed. IR consulted for possible repeat paracentesis. Status post CT guided paracentesis by Interventional Radiology. 2.5 liters removed. Management per the primary team. Qualifiers: Ascites type: other type Qualified Code(s): R18.8 - Other ascites - Subjective Interval history: Patient seen and examined. Weekend notes reviewed. No acute events noted. Patient lying in bed with family and nursing at bedside. Status post right BKA . Operative note reviewed and appears that the surgery went well and as expected. Complains of pain at the surgical site at this time, 10/20, improved with oral pain medications. Denies fevers or chills. Denies chest pain, shortness of breath, or cough. Denies nausea, vomiting, or constipation. Denies diarrhea. Denies abdominal pain and states her appetite is better. Denies urinary complaints and has a edward catheter in place draining clear yellow urine. Denies oral thrush or skin lesions. Infect Dis PN-Objective Data - Labs CBC & Chem 7: 07/04/16 04:23 06/30/16 04:24 Labs: Laboratory Results - last 24 hr 07/03/16 07/04/16 07/04/16 16:38 04:23 07:46 WBC 8.7 RBC 3.18 L Hgb 7.7 L Hct 26.2 L MCV 82.4 L MCH 24.2 L MCHC 29.4 L RDW 16.8 H Plt Count 254 MPV 9.4 Immature Gran % 1.6 Seg Neutrophils % 72.2 Lymphocytes % 20.2 Monocytes % 4.4 Eosinophils % 1.4 Basophils % 0.2 Neutrophils # 6.2 Lymphocytes # 1.8 Monocytes # 0.4 Eosinophils # 0.1 Basophils # 0.0 POC Glucose 129 H 320 H Cultures: Cultures 06/23/16 16:35 Wound Culture - Final Right Foot Strep agalactiae - (Group B) Strep agalactiae - (Group B)#2 06/23/16 16:35 Anaerobic Culture - Final Right Foot No anaerobes were recovered. 06/23/16 16:45 Anaerobic Culture - Final Right Foot No anaerobes were recovered. 06/23/16 16:40 Anaerobic Culture - Final Right Foot No anaerobes were recovered. 06/23/16 16:45 Surgical Biopsy Culture - Final Right Foot 06/23/16 16:40 Wound Culture - Final Right Foot Strep agalactiae - (Group B) 06/19/16 10:30 Wound Culture - Final Left Foot Staphylococcus aureus Serology 06/30/16 06/30/16 06/30/16 Range/Units 23:50 23:49 00:05 Ur Eosinophil Smear (None Seen) % Urine Osmolality 277 L (300-1090) mOsm/kg Urine Creatinine 56 mg/dL Urine Microalbumin mg/L Microalb/Creat Ratio (0-30) Urine Sodium 28.0 mEq/L Urine Potassium < 10.0 mEq/L Urine Chloride mEq/L Urine Phosphorus 53.3 mg/dL Urine Calcium mg/dL Stl C. diff Tox B Gene (Negative) Hepatitis A IgM Ab (Nonreactive) Hep Bs Antigen (Nonreactive) Hep B Core IgM Ab (Nonreactive) Hepatitis C Ab Screen (Nonreactive) HIV Ag/Ab Combo Qual (Nonreactive) 06/26/16 06/26/16 06/24/16 Range/Units 05:12 00:01 06:07 Ur Eosinophil Smear (None Seen) % Urine Osmolality (300-1090) mOsm/kg Urine Creatinine mg/dL Urine Microalbumin mg/L Microalb/Creat Ratio (0-30) Urine Sodium mEq/L Urine Potassium mEq/L Urine Chloride mEq/L Urine Phosphorus mg/dL Urine Calcium mg/dL Stl C. diff Tox B Gene Negative (Negative) Hepatitis A IgM Ab Nonreactive (Nonreactive) Hep Bs Antigen Nonreactive (Nonreactive) Hep B Core IgM Ab Nonreactive (Nonreactive) Hepatitis C Ab Screen Nonreactive (Nonreactive) HIV Ag/Ab Combo Qual Nonreactive (Nonreactive) 06/23/16 06/23/16 06/23/16 Range/Units 11:37 11:37 08:24 Ur Eosinophil Smear 4 H (None Seen) % Urine Osmolality (300-1090) mOsm/kg Urine Creatinine 35 mg/dL Urine Microalbumin 28 mg/L Microalb/Creat Ratio 80 H (0-30) Urine Sodium mEq/L Urine Potassium mEq/L Urine Chloride 60 mEq/L Urine Phosphorus mg/dL Urine Calcium < 2.0 mg/dL Stl C. diff Tox B Gene (Negative) Hepatitis A IgM Ab (Nonreactive) Hep Bs Antigen (Nonreactive) Hep B Core IgM Ab (Nonreactive) Hepatitis C Ab Screen (Nonreactive) HIV Ag/Ab Combo Qual (Nonreactive) Exam - Constitutional Vitals: Temp Pulse Resp BP Pulse Ox 97.8 F 90 18 151/72 96 07/04/16 07:44 07/04/16 07:44 07/04/16 07:44 07/04/16 07:44 07/04/16 08:33 General appearance: average body habitus, cooperative, no acute distress - Head Head exam: Present: atraumatic, normal inspection, normocephalic - Eye Eye exam: Present: EOMI, normal appearance, PERRL Pupils: Present: normal accommodation - ENT ENT exam: Present: mucous membranes moist - Neck Neck exam: Present: normal inspection - Respiratory Respiratory exam: Present: CTAB. Absent: rales, respiratory distress, rhonchi, wheezes - Cardiovascular Cardiovascular exam: Present: RRR, +S1, +S2 - GI/Abdominal GI/Abdominal exam: Present: distended, normal bowel sounds, soft. Absent: tenderness Additional comments: Edward catheter noted to be draining clear yellow urine. - Extremities Exam Extremities exam: Present: pedal edema (1+ BLE), tenderness (right BKA stump) Additional comments: Right BKA stump C/D/I. Left foot dressing C/D/I. - Neurological Exam Neurological exam: Present: alert, oriented X3, no focal deficits - Psychiatric Psychiatric exam: Present: normal affect, normal mood - Skin Skin exam: Present: dry, intact, normal color, warm - VTE Documentation of Mechanical Device: Intermittent pneumatic compression device Consult Discharge Plan - Plan Referrals: Almas Ac DO [Primary Care Provider] - 07/08/16 1:40 pm (Please follow up as schedule...) Florentin Keating MD [Partnered Physician] - (Follow-up with Dr. Keating in 6 weeks for right BKA staple removal.)
[2016-07-04 11:50] VITALS: BP 139/69
--- NOTE | 2016-07-04 11:50 | IR Procedure Note ---
Date of procedure: 07/04/16 Consent Obtained: Written consent Timeout: Correct patient and procedure verified, Correct site verified, Time out performed, Skin prep completed Indications: ascites Procedure Performed: paracentesis Site/Technique: left abdomen Results/Findings: 750cc Estimated blood loss (cc): 0 Complications: None; Tolerated procedure well Post Procedure Treatment Plan: recovery
--- NOTE | 2016-07-04 12:41 | Vascular/Endovas Progress Note ---
Date of Encounter: 07/04/16 Time of Encounter: 12:15 - Assessment and plan (1) PAD (peripheral artery disease) Current Visit: Yes Status: Acute Patient is status post right below the knee amputation. She is postoperative day #4. She had an uneventful night/weekend. The patient will return to see me in my clinic in 6 weeks for staple removal and evaluation for prosthetic referral. - Subjective Interval history: Patient is postoperative day #4 from a right [id number] amputation. She has no complaints. She is status post repeat paracentesis earlier today. The patient is receiving regular physical therapy treatments and is awaiting transfer to rehabilitation facility for right BKA. Vital Signs, Last 4 Hours Temp Pulse Resp BP Pulse Ox 07/04/16 11:45 98.3 F 86 18 139/69 94 - Physical Examination General: Present: Conversant, No Apparent Distress HEENT: Present: Atraumatic Vascular: Present: Amputation(s) (Right BKA site is clean and dry. It is healing well. There is no signs of infections or hematoma or discoloration. The flaps are intact and warm.) - VTE Documentation of Mechanical Device: Intermittent pneumatic compression device Results 07/04/16 04:23 06/30/16 04:24 Lab Results, Last 24 hours 07/04/16 04:23 WBC 8.7 Hgb 7.7 L Hct 26.2 L Plt Count 254 Consult Discharge Plan - Plan Additional Instructions: Daily dressing changes for right BKA with dry to dry dressing and Chago wrap. May use soap and water to wash and clean the right BKA. Areas to be patted dry beginning on postoperative day #5. Referrals: Almas Ac DO [Primary Care Provider] - 07/08/16 1:40 pm (Please follow up as schedule...) Florentin Keating MD [Partnered Physician] - (Follow-up with Dr. Keating in 6 weeks for right BKA staple removal.)
--- NOTE | 2016-07-04 13:09 | Physician Discharge Referral ---
ExtendedCare Referral Info Transfer To: [facility] Provider in Charge: Dr. Lei Provider in Charge after Transfer: PCP Institutional Level of Care: Skilled - Diagnosis (1) Sepsis Priority: Primary Status: Resolved (2) Diabetic foot ulcer Priority: Primary Status: Chronic (3) Hemangioma of liver Priority: Secondary Status: Chronic (4) Insulin dependent diabetes mellitus Priority: Secondary Status: Chronic (5) Cellulitis Priority: Primary Status: Resolved (6) Hypomagnesemia Priority: Secondary Status: Resolved (7) PAD (peripheral artery disease) Priority: Secondary Status: Chronic (8) Charcot's arthropathy Priority: Secondary Status: Resolved (9) Acute kidney injury Priority: Primary Status: Resolved (10) Osteomyelitis Priority: Primary Status: Resolved (11) Anemia Priority: Secondary Status: Chronic (12) Hypertension Priority: Secondary Status: Chronic Prognosis: Fair Aware of Diagnosis: Patient Aware of Prognosis: Patient - Transfer Medications Home Medications: Medroxyprogesterone Acetate [Depo-Provera] 150 mg IJ [id number] 10/15/14 [History] Sertraline [Zoloft] 100 mg PO DAILY 10/15/14 [History] Furosemide [Lasix] 20 mg PO DAILY 06/19/16 [History] Omeprazole [PriLOSEC] 20 mg PO DAILY 06/19/16 [History] Acetaminophen [Tylenol] 650 mg PO Q6HR PRN #0 tablet 07/04/16 [Rx] Amlodipine [Norvasc] 10 mg PO DAILY tablet 07/04/16 [Rx] Collagenase Oint [Santyl] 1 appl TP BID tube 07/04/16 [Rx] Insulin DETEMIR [Levemir] 10 unit SQ BID [id number] 07/04/16 [Rx] Insulin LISPRO [HumaLOG] 8 units SQ TIDWM vial 07/04/16 [Rx] OxyCODONE/APAP 10/325 [Percocet 10/325 MG] 1 each PO Q6HR PRN #20 tablet [Rx] Allergies/Adverse Reactions: Allergies No Known Allergies Allergy (Verified 06/18/16 14:55) - Respiratory Orders Smoking Cessation: Smoking cessation has been advised. For more information, call the [employer] Tobacco Quit Line at 5-973-DWPP-NOW. - Advance Directives Code Status: Full Code - Mobility Orders Other (As per Physical Therapy) - Rehabiliation Orders Rehab Potential: Fair Rehab Orders: Evaluation for Physical Therapy - Treatments List/Other: Daily dressing changes for right BKA with dry to dry dressing and Chago wrap. May use soap and water to wash and clean the right BKA. Areas to be patted dry beginning on postoperative day #5. - Diet Orders No Concentrated Sweets, Cardiac CERTIFICATION: I certify that the transfer of the above named patient to an Extended Care Facility is necessary for the continuing treatment of the diagnosis listed. The above information is true and accurate reflection of patient's current condition. Confidential - Redisclosure prohibited without a patient's written consent.
[2016-07-04] MEDS ORDERED: Ascorbic Acid 500 MG TABLET PO SCH (13:15)
--- NOTE | 2016-07-04 13:17 | Discharge Summary ---
Date of Encounter: 07/04/16 Time of Encounter: 13:13 - Discharge Diagnosis (1) Sepsis Priority: Primary Status: Resolved Qualifiers: Sepsis type: Streptococcus group B Qualified Code(s): A40.1 - Sepsis due to streptococcus, group B (2) Diabetic foot ulcer Priority: Secondary Status: Chronic Qualifiers: Diabetic foot ulcer location: unspecified part of foot Diabetes mellitus type: type 2 Laterality: left Non-pressure ulcer stage: limited to breakdown of skin Qualified Code(s): E11.621 - Type 2 diabetes mellitus with foot ulcer; L97.521 - Non-pressure chronic ulcer of other part of left foot limited to breakdown of skin (3) Hemangioma of liver Priority: Secondary Status: Chronic (4) Insulin dependent diabetes mellitus Priority: Secondary Status: Chronic (5) Cellulitis Priority: Secondary Status: Resolved Qualifiers: Site of cellulitis: extremity Site of cellulitis of extremity: lower extremity Laterality: right Qualified Code(s): L03.115 - Cellulitis of right lower limb (6) Hypomagnesemia Priority: Secondary Status: Resolved (7) PAD (peripheral artery disease) Priority: Secondary Status: Chronic (8) Charcot's arthropathy Priority: Secondary Status: Resolved (9) Acute kidney injury Priority: Primary Status: Resolved (10) Osteomyelitis Priority: Primary Status: Resolved Qualifiers: Osteomyelitis type: chronic multifocal Osteomyelitis location: foot Laterality: right Qualified Code(s): M86.371 - Chronic multifocal osteomyelitis, right ankle and foot (11) Anemia Priority: Secondary Status: Chronic Qualifiers: Anemia type: unspecified type Qualified Code(s): D64.9 - Anemia, unspecified (12) Hypertension Priority: Secondary Status: Chronic Qualifiers: Hypertension type: essential hypertension Qualified Code(s): I10 - Essential (primary) hypertension - Discharge Medications Prescriptions: OxyCODONE/APAP 10/325 [Percocet 10/325 MG] 1 each PO Q6HR PRN #20 tablet PRN Reason: Severe Pain (7-10) Home Medications: Medroxyprogesterone Acetate [Depo-Provera] 150 mg IJ [id number] 10/15/14 [History] Sertraline [Zoloft] 100 mg PO DAILY 10/15/14 [History] Furosemide [Lasix] 20 mg PO DAILY 06/19/16 [History] Omeprazole [PriLOSEC] 20 mg PO DAILY 06/19/16 [History] Acetaminophen [Tylenol] 650 mg PO Q6HR PRN #0 tablet 07/04/16 [Rx] Amlodipine [Norvasc] 10 mg PO DAILY tablet 07/04/16 [Rx] Ascorbic Acid [Vitamin C] 500 mg PO DAILY tablet 07/04/16 [Rx] Collagenase Oint [Santyl] 1 appl TP BID tube 07/04/16 [Rx] Docusate [Colace] 100 mg PO BID capsule 07/04/16 [Rx] Ferrous Sulfate 325 mg PO BIDWM tablet 07/04/16 [Rx] Insulin DETEMIR [Levemir] 10 unit SQ BID [id number] 07/04/16 [Rx] Insulin LISPRO [HumaLOG] 8 units SQ TIDWM vial 07/04/16 [Rx] OxyCODONE/APAP 10/325 [Percocet 10/325 MG] 1 each PO Q6HR PRN #20 tablet [Rx] Allergies/Adverse Reactions: Allergies No Known Allergies Allergy (Verified 06/18/16 14:55) Procedures/tests Complete & Pending: Procedures Performed prior 72 hours Category Date Time Status IR paracentesis ultrasound [IR] Routine IR 07/04/16 Taken Date of admission: 06/18/16 20:15 Primary care physician: Almas Ac Consults: 06/30/16 14:42 Consult to Physical Therapy [CONS] Routine Comment: Evaluate, develop and implement POC Consult to [employer] [CONS] Routine Reason for SW Consult: post op amputation 06/30/16 19:15 Consult to Occupational Therapy [CONS] Routine Comment: Evaluate, develop and implement POC 07/02/16 09:59 Consult to Interventional Radiology [CONS] Routine Consulting Provider: Radiology Interventional Cols Reason for Consult: Therapeutic ascites drainage Call Completed: No 07/04/16 08:43 Consult to [employer] [CONS] Routine Reason for SW Consult: Inpatient rehab placement, patient is stable for discharge Discharging clinician: Wellington Lei Anticipated date of discharge: 07/04/16 - Patient Status Disposition: Transfer Inpatient Rehab Fac Condition: Fair Functional capacity at discharge: bed bound Overall status at discharge: patient is progressing back to baseline - Discharge Instructions Follow Up With: Almas Ac DO [Primary Care Provider] - 07/08/16 1:40 pm (Please follow up as schedule...) Florentin Keating MD [Partnered Physician] - (Follow-up with Dr. Keating in 6 weeks for right BKA staple removal.) Additional Instructions: Daily dressing changes for right BKA with dry to dry dressing and Chago wrap. May use soap and water to wash and clean the right BKA. Areas to be patted dry beginning on postoperative day #5. - Diet and Activity Activity: as per physical therapy Diet: diabetic diet, low fat, low cholesterol, low salt diet Interval History: Ms. Anthony Cook is a 55 year old female who [facility] with a several days history of fevers, chills, exertional dyspnea, and worsening pain in her feet. She also complained of increased swelling. Her family doctor placed her on Lasix, but she stopped it after a few days. She also had an antibiotic prescription from Dr. Lenz, but she has not taken the antibiotics just yet. She had a wound culture growing out group B streptococcus and Staph Aureus also. Over the last 24 hours, her symptoms progressively worsened point where she fell she needed to go to the emergency department. She therefore came to the ER where she was diagnosed with sepsis likely due to right leg cellulitis and left diabetic foot ulcer and Pneumonia, JULISSA and ascites. Blood cultures were drawn and and antibiotics were initiated. Labs and Imaging in this admission Leukocytosis with left shift Chronic iron deficiency anemia, baseline Hb around 8PLT WL A1C 12.6 Vit B12 and folate WNL Iron level 9 Left foot ulcer with MSSA Right foot culture with Strep agalactiae UTI with urine culture positive for Klebsiella ozaenae that is gilliam-sensitive ECHO demonstrated LVEF 55-60%, normal LV systolic and diastolic function, normal RV function, normal valvular function, no pulmonary HTN MRI of the right foot and ankle showed findings consistent with Charcot arthropathy, possible OM, and fluid collections in the soft tissue of the plantar midfoot and encasing the 1st-5th metatars[address] shafts. CT abdomen demonstrated possible hemangioma that takes up a large portion of liver Management/Recommendations She was started on antibiotics-broad spectrum which were later tailored to specific bacteria She initially received I & D of multiple areas of the right foot and incision of ball cortex 06/23/[address] Lenz. However, patient's right foot with evidence of gangrene and repeat x-ray showed gas in the soft tissue. After collaboration with the Vascular team, it was determined that the foot was likely unsalvageable and the patient underwent a right BKA 06/30/[address] Keating. All infected tissue and bone was removed. 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 Anthony Cook is a 55 year old female Time spent discussing smoking cessation with patient: 3 to 10 minutes (4 minutes spent on tobacco cessation) - Time Spent with Patient Total time spent providing and/or coordinating discharge services: Greater than 30 minutes (45 minutes spent on chart review, patient encounter, medication reconciliation and prescription and documentation, as well as co- ordination of discharge with SW) - Constitutional Vitals: Temp Pulse Resp BP Pulse Ox 98.3 F 86 18 139/69 94 07/04/16 11:45 07/04/16 11:45 07/04/16 11:45 07/04/16 11:45 07/04/16 11:45 General appearance: Present: cooperative, A&O X 3, pleasant, no acute distress, answers questions appropriately - Head Head exam: Present: atraumatic, normocephalic - Eye Eye exam: Present: PERRL, conjuntiva pink, sclera anicteric Pupils: Present: PERRL - Neck Neck exam general surgery: Present: supple, trachea midline. Absent: lymphadenopathy - Respiratory Respiratory exam: Present: CTAB. Absent: accessory muscle use, rales, rhonchi, wheezes - Cardiovascular Cardiovascular exam: Present: RRR, +S1, +S2. Absent: diastolic murmur, gallop, rubs, systolic murmur - GI/Abdominal GI/Abdominal exam: Present: distended, normal bowel sounds, soft, no peritoneal signs. Absent: tenderness - Extremities Exam Extremities exam: Present: warm, radial pulses palpable and symetrical. Absent : calf tenderness, cyanotic, pedal edema Additional comments: s/p R BKA, stump clean and dry Left foot wound on plantar surface with clean dressing - Neurological Exam Neurological exam: Present: alert, CN II-XII intact, oriented X3, no focal deficits. Absent: pronater drift, facial droop, speech deficit - Skin Skin exam: Present: dry, intact - VTE Documentation of Mechanical Device: Intermittent pneumatic compression device
--- NOTE | 2016-07-04 13:27 | Podiatry Progress Note ---
Date of Encounter: 07/05/16 Time of Encounter: 12:30 - Assessment and Plan (1) Foot ulcer due to secondary DM Status: Chronic Ulceration to left foot is healing. No evidence of bacterial infection to ulceration of left foot. Continue wound care as ordered. Patient set up for custom inlay and shoe. Patient will need to f/u with Dr. Lenz in wound care on 07/13/16. (2) Skin bulla Status: Resolved S/p right BKA by Dr. Keating on 06/30/16. Dressing dry and intact. Subjective Principal diagnosis: I&D/Right foot abscess/gangrene Interval history: Patient is sitting up in bed with dressing intact to left foot and right stump. Patient is s/p Right BKA by Dr. Keating on 06/30/16. Patient states she thinks she is going to an ECF tomorrow. Patient states no pain to left foot. No c/o fever, chills, cp, overnight. Objective - Vital Signs Vital Signs: Vital Signs Temp Pulse Resp BP Pulse Ox 07/04/16 11:45 98.3 F 86 18 139/69 94 07/04/16 08:33 96 07/04/16 07:44 97.8 F 90 18 151/72 90 07/04/16 04:15 97.6 F 79 16 129/62 95 07/03/16 22:40 98.5 F 87 16 152/65 97 07/03/16 15:16 98.2 F 87 16 129/58 97 Intake and Output 07/03/16 07/04/16 07/04/16 23:59 07:59 15:59 Intake Total 240 / 240 240 / 240 720 / 720 Output Total 475 / 475 1400 / 1400 600 / 600 Balance -235 / -235 -1160 / -1160 120 / 120 Intake: Oral 240 / 240 240 / 240 720 / 720 Output: Peracentesis 100 / 100 Catheter 475 / 475 1300 / 1300 600 / 600 Other: Meal Dinner Lunch Percent of Meal Consumed 95% 100% Weight 89.3 kg Blood Glucose* 267 320 228 Patient Weight 07/04/16 23:59 Weight 89.3 kg - Exam Exam: General appearance: alert awake oriented X 3. Calm and pleasant, no acute distress.. Vascular: Pedal pulses +1/4 DP/PT left,Edema graded at 1+/4 left, No calf pain with manual compression. capillary refill time is immediate to digits #1 through #5 left foot. Neurologic: Sensation diminished with light touch to both feet Musculoskeletal: s/p right BKA. Integument: Partial thickness ulceration to the left foot at sub #1 metatarsal head left foot measuring 1 cm in length x 1 cm in width x 0.4 cm in depth. base of wound with 80% granulation tissue and 20% fibrous tissue, no bone, no odor, no pus, no periwound erytehma, no ascending cellulitis. - Lab Result Diagrams: 07/04/16 04:23 06/30/16 04:24 Labs: Abnormal lab results RBC 3.18 M/mcL (3.82-4.97) L 07/04/16 04:23 Hgb 7.7 g/dL (11.5-15.4) L 07/04/16 04:23 Hct 26.2 % (35.3-44.9) L 07/04/16 04:23 MCV 82.4 fL (83.0-100.0) L 07/04/16 04:23 MCH 24.2 pg (28.0-33.3) L 07/04/16 04:23 MCHC 29.4 g/dL (31.6-35.5) L 07/04/16 04:23 RDW 16.8 % (11.5-14.5) H 07/04/16 04:23 Band Neutrophils % 8.0 % (0-4) H 06/27/16 09:09 Metamyelocytes % 2.0 % (0) H 06/18/16 15:47 Myelocytes % 2.0 % (0) H 06/26/16 05:12 Promyelocytes % 2.0 % (0) H 06/26/16 05:12 Nucleated RBCs/100 WBC 0.2 /100 WBC (0) H 06/19/16 03:33 Reactive Lymphocytes Present (Not Present) A 06/19/16 03:33 Toxic Granulation Present (Not Present) A 06/28/16 03:35 Large Platelets Present (Not Present) A 06/28/16 03:35 Polychromasia 1+ (Not Present) A 06/23/16 05:20 Poikilocytosis 1+ (Not Present) A 06/27/16 09:09 Anisocytosis 1+ (Not Present) A 06/28/16 03:35 Microcytosis Present (Not Present) A 06/23/16 05:20 ESR 62 mm/hr (0-15) H 06/23/16 13:48 PT 14.6 Seconds (9.4-12.1) H 06/26/16 05:12 APTT 23.5 Seconds (26.0-36.0) L 06/18/16 21:00 D-Dimer 6782 ng/mLFEU (0-500) H 06/18/16 15:47 VBG pH 7.45 pH Units (7.32-7.42) H 06/18/16 17:53 VBG pCO2 33 mmHg (41-51) L 06/18/16 17:53 VBG pO2 89 mmHg (25-40) H 06/18/16 17:53 Glucose 145 mg/dL (70-99) H 06/30/16 04:24 POC Glucose 228 (58-89) H 07/04/16 11:47 Hemoglobin A1c 12.6 % (-5.6) H 06/18/16 21:00 Calcium 8.3 mg/dL (8.6-10.8) L 06/30/16 04:24 Iron 9 mcg/dL (50-170) L 06/22/16 03:34 % Saturation 6 % (15-50) L 06/22/16 03:34 Transferrin 111 mg/dL (180-382) L 06/22/16 03:34 Ferritin 1620 ng/ml (5-204) H 06/22/16 03:34 Creatine Kinase < 7 Units/L (29-168) L 06/27/16 09:09 C-Reactive Protein 215 mg/L (Less than 5) H 06/24/16 06:07 B-Natriuretic Peptide 193 pg/mL (0-100) H 06/18/16 15:47 Serum Total Protein 5.5 g/dL (6.0-8.3) L 06/30/16 04:24 Albumin 1.7 g/dL (3.5-5.0) L 06/30/16 04:24 Globulin 3.8 g/dL (2.4-3.5) H 06/30/16 04:24 Albumin/Globulin Ratio 0.4 (1.1-2.2) L 06/30/16 04:24 Triglycerides 274 mg/dL (< 150) H 06/19/16 03:33 VLDL Cholesterol, Calc 55 mg/dL (< 31) H 06/19/16 03:33 HDL Cholesterol 11 mg/dL (40-59) L 06/19/16 03:33 Cholesterol/HDL Ratio 13.5 (0-4.9) H 06/19/16 03:33 Beta-Hydroxybutyric Acd > 2.00 mmol/L (0.02-0.27) H 06/18/16 15:47 Urine Clarity Cloudy (Clear) A 06/18/16 16:53 Ur Specific [place] > 1.030 (1.010-1.025) H 06/18/16 16:53 Urine Protein 30 mg/dL (Neg-Trace) H 06/18/16 16:53 Urine Glucose (UA) >=1000 mg/dL (Normal) H 06/18/16 16:53 Urine Ketones 40 mg/dL (Negative) H 06/18/16 16:53 Urine Blood Trace (Negative) H 06/18/16 16:53 Urine Bilirubin Moderate (Negative) H 06/18/16 16:53 Urine Microscopic WBC 15-30 per hpf (0-3) H 06/18/16 16:53 Ur Eosinophil Smear 4 % (None Seen) H 06/23/16 11:37 Ur Squamous Epith Cells Many per lpf (None-Few) H 06/18/16 16:53 Urine Bacteria Many per hpf (None-Few) H 06/18/16 16:53 Ur Culture Indicated? YES (NO) A 06/18/16 16:53 Urine Osmolality 277 mOsm/kg (300-1090) L 06/30/16 23:50 Microalb/Creat Ratio 80 (0-30) H 06/23/16 11:37 - VTE Documentation of Mechanical Device: Intermittent pneumatic compression device Consult Discharge Plan - Plan Additional Instructions: Daily dressing changes for right BKA with dry to dry dressing and Chago wrap. May use soap and water to wash and clean the right BKA. Areas to be patted dry beginning on postoperative day #5. Referrals: Almas Ac DO [Primary Care Provider] - 07/08/16 1:40 pm (Please follow up as schedule...) Stone Lenz DPM [Partnered Physician] - 07/13/16 11:30 am Florentin Keating MD [Partnered Physician] - 08/10/16 10:30 am (Follow-up with Dr. Keating for right BKA staple removal.) Prescriptions: OxyCODONE/APAP 10/325 [Percocet 10/325 MG] 1 each PO Q6HR PRN #20 tablet PRN Reason: Severe Pain (7-10)
[2016-07-04] MEDS ORDERED: dimenhyDRINATE 50 MG TABLET PO ONE (16:00)
== END 2016-07-04 16:33 | DRG 853 ==
LOC: EMEROO 14:47 → 2ANU 14:47 → SUATTDRO 20:15
PROVIDERS: ADMIT Nurse Practitioner Family; ATTEND Internal Medicine

== ENCOUNTER 2016-07-25 20:46 | Inpatient (IN) ==
[2016-07-25] MEDS ORDERED: *HR* Dextrose 50 % in Water (Syg) 50 ML SYRINGE IVP ONE (20:57)
[2016-07-25] MEDS ORDERED: D5% in 0.45% NACL 1,000 ML IVC SCH (21:00)
--- NOTE | 2016-07-25 21:00 | Emergency Department Note ---
Disposition Clinical Impression: C. difficile colitis, Hypothermia, Sepsis, Diabetes mellitus, Hypokalemia, Diabetes, Hypoglycemia, Altered mental status, Abnormal urinalysis, Diabetic foot ulcer, Recent surgical procedure on lower extremity Disposition: Admitted As Inpatient Referrals: NO,PCP [Primary Care Provider] - Forms: ED Satisfaction Letter General Adult HPI - General Chief complaint: ED Altered Mental Status Stated complaint: AMS/Weakness Time Seen by Provider: 07/25/16 20:55 - History of Present Illness HPI Narrative: 55-year-old female reports emergency department via EMS. She was doing well about 4 PM per family members, however they noticed some garbled speech, EMS arrived and noticed the patient's blood sugar was in the 40s, they gave her some by mouth glucose. They rechecked her sugar and route and it was 56. There is no history of lateralizing defect, no numbness or weakness of the arms or legs or facial drooping. There is no history of headache neck stiffness or rash no fever chest pain shortness of breath or abdominal pain. 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 The patient is known to be diabetic. There is no history of vomiting, the patient has had consistent nonbloody diarrhea over the last several days. There is no history of fall or trauma. The patient is able to answer questions and describes no other acute complaints or concerns. - Related Data Home Medications Medication Instructions Recorded Confirmed Medroxyprogesterone Acetate 150 mg IJ [id number] 10/15/14 07/04/16 [Depo-Provera] Sertraline [Zoloft] 100 mg PO DAILY 10/15/14 07/04/16 Omeprazole [PriLOSEC] 20 mg PO DAILY 06/19/16 07/04/16 Previous Rx's Medication Instructions Recorded Acetaminophen [Tylenol] 650 mg PO Q6HR PRN #0 tablet 07/04/16 Collagenase Oint [Santyl] 1 appl TP BID tube 07/04/16 Docusate [Colace] 100 mg PO BID capsule 07/04/16 Insulin DETEMIR [Levemir] 10 unit SQ BID [id number] 07/04/16 Insulin LISPRO [HumaLOG] 8 units SQ TIDWM vial 07/04/16 OxyCODONE/APAP 10/325 [Percocet 1 each PO Q6HR PRN #20 tablet 07/04/16 10/325 MG] Ascorbic Acid [Vitamin C] 500 mg PO DAILY #30 tablet 07/20/16 Bumetanide [Bumex] 2 mg PO DAILY #60 tablet 07/20/16 Ferrous Sulfate 325 mg PO DAILY #30 tablet 07/20/16 Magnesium Oxide [Mag-Ox] 400 mg PO DAILY #30 tablet 07/20/16 Potassium Chloride 20 meq PO DAILY #30 tab.er.prt 07/20/16 Spironolactone [Aldactone] 12.5 mg PO DAILY #15 tablet 07/20/16 Allergies Allergy/AdvReac Type Severity Reaction Status Date / Time No Known Allergies Allergy Verified 06/18/16 14:55 All systems ED: reviewed and negative except as stated. 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 Absent : tenderness - Respiratory Respiratory exam: Present: normal lung sounds bilaterally. Absent: respiratory distress, wheezes, accessory muscle use, prolonged expiratory phase - Cardiovascular Cardiovascular exam: Present: regular rate, normal rhythm, normal heart sounds - Abdominal Exam Abdominal exam: Present: soft, Non-Tender, normal bowel sounds. 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 All 4 chambers are warm and well perfused without cyanosis. Full range of motion of the wrist elbow shoulders hips and knees and left ankle. There is no evidence of acute neurovascular or neuromuscular compromise.). Absent: tenderness, pedal edema, joint swelling, calf tenderness - Back Exam Back exam: Present: normal inspection, full ROM. Absent: tenderness, CVA tenderness (R), CVA tenderness (L), vertebral tenderness - Neurological Exam Neurological exam: Present: alert, oriented X3, CN II-XII intact. Absent: motor sensory deficit - Psychiatric Psychiatric exam: Present: normal affect, normal mood - Skin Skin exam: Present: warm, dry, intact, normal color. Absent: rash, cyanosis, diaphoresis, erythema, pallor, mottled Course Vital Signs Temperature 93.3 F L 07/25/16 20:49 Pulse Rate 103 07/25/16 20:49 Respiratory Rate 20 07/25/16 20:49 Blood Pressure 127/104 07/25/16 20:49 O2 Sat by Pulse Oximetry 100 07/25/16 20:49 Temperature 98.6 F 07/25/16 23:36 Pulse Rate 93 07/25/16 23:15 Respiratory Rate 18 07/25/16 23:15 Blood Pressure 103/53 07/25/16 23:15 O2 Sat by Pulse Oximetry 96 07/25/16 23:15 Oxygen Delivery Oxygen Delivery Room Air Medical Decision Making - [facility] Narrative Medical decision making narrative: The patient's testing is suggestive of C. difficile colitis. She was initially hypothermic and hypoglycemic. She was given an amp of D50 and her blood glucose went into the 200 range and she became much more alert. IV fluid was given. Flagyl IV and Vanco by mouth. Blood cultures were sent. Urinalysis abnormal but not suggestive of serious infection. Chest x-ray negative. CT head negative. No lateralizing defects noted. The patient appears to be stabilizing with the temperature of 98.6 after warming blanket and infusion of warm fluids. She is alert and oriented. Based on her hypoglycemia, marked leukocytosis in association with positive C. difficile colitis hyperthermia apparent sepsis comorbidities including diabetes and recent leg surgery, I thought the patient should be admitted to the hospital. I discussed the case with the hospitalist who has accepted the patient to their care. - Lab Data Lab results reviewed: Yes I reviewed the patient's lab results. Result diagrams: 07/25/16 21:10 07/25/16 21:10 Lab Results 07/25/16 07/25/16 07/25/16 Range/Units 21:10 21:10 21:10 WBC 27.1 H (4.3-11.1) K/mcL RBC 4.88 (3.82-4.97) M/mcL Hgb 11.9 (11.5-15.4) g/dL Hct 38.4 (35.3-44.9) % MCV 78.7 L (83.0-100.0) fL MCH 24.4 L (28.0-33.3) pg MCHC 31.0 L (31.6-35.5) g/dL RDW 16.7 H (11.5-14.5) % Plt Count 377 (140-400) K/mcL MPV 9.5 (9.4-12.4) fL Seg Neutrophils % 76.0 % Band Neutrophils % 6.0 H (0-4) % Lymphocytes % 12.0 % Monocytes % 6.0 % Neutrophils # 22.2 H (1.6-8.9) K/mcL Lymphocytes # 3.3 (0.6-4.6) K/mcL Monocytes # 1.6 H (0.0-1.3) K/mcL Platelet Estimate Normal (Normal) PT 13.0 H (9.4-12.1) Seconds INR 1.2 APTT 29.3 (26.0-36.0) Seconds Sodium 141 (136-145) mEq/L Potassium 3.1 L (3.5-4.5) mEq/L Chloride 106 (98-109) mEq/L Carbon Dioxide 23 (19-29) mEq/L BUN 17 (7-20) mg/dL Creatinine 0.65 (0.57-1.11) mg/dL Est GFR ( Amer) > 60 (> 60) Est GFR (Non-Af Amer) > 60 (> 60) BUN/Creatinine Ratio 26 (6-26) Glucose 64 L (70-99) mg/dL POC Glucose (58-89) Calculated Osmolality 292 (280-300) Lactic Acid (0.5-2.2) mmol/L Calcium 9.6 (8.6-10.8) mg/dL Total Bilirubin 0.6 (0.2-1.2) mg/dL Direct Bilirubin 0.3 (0.0-0.5) mg/dL Indirect Bilirubin 0.3 (0.0-1.2) mg/dL AST 12 (5-34) Units/L ALT 8 (0-55) Units/L Alkaline Phosphatase 154 H (38-126) Units/L Troponin I (0-0.03) ng/mL C-Reactive Protein 82 H (Less than 5) mg/L Serum Total Protein 8.0 (6.0-8.3) g/dL Albumin 3.2 L (3.5-5.0) g/dL Globulin 4.8 H (2.4-3.5) g/dL Albumin/Globulin Ratio 0.7 L (1.1-2.2) Urine Color (Yellow) Urine Clarity (Clear) Urine pH (5.0-8.0) pH Units Ur Specific [place] (1.010-1.025) Urine Protein (Neg-Trace) mg/dL Urine Glucose (UA) (Normal) mg/dL Urine Ketones (Negative) mg/dL Urine Blood (Negative) Urine Nitrite (Negative) Urine Bilirubin (Negative) Urine Urobilinogen (Normal) mg/dL Ur Leukocyte Esterase (Negative) Urine Microscopic RBC Urine Microscopic WBC (0-3) per hpf Ur Squamous Epith Cells (None-Few) per lpf Urine Bacteria (None-Few) per hpf Hyaline Casts (None-Few) per lpf Urine Yeast (None Seen) per hpf Ur Culture Indicated? (NO) Stl C. diff Tox B Gene (Negative) Urine Opiates Screen (Xftkhq=629) ng/mL Ur Barbiturates Screen (Yrxcao=517) ng/mL Ur Phencyclidine Scrn (Cutoff=25) ng/mL Ur Amphetamines Screen (Bzyidx=6248) ng/mL U Benzodiazepines Scrn (Ohzetq=978) ng/mL Urine Cocaine Screen (Cutoff= 300) ng/mL U Marijuana (THC) Screen (Cutoff = 50) ng/mL 07/25/16 07/25/16 07/25/16 Range/Units 21:10 21:10 21:43 WBC (4.3-11.1) K/mcL RBC (3.82-4.97) M/mcL Hgb (11.5-15.4) g/dL Hct (35.3-44.9) % MCV (83.0-100.0) fL MCH (28.0-33.3) pg MCHC (31.6-35.5) g/dL RDW (11.5-14.5) % Plt Count (140-400) K/mcL MPV (9.4-12.4) fL Seg Neutrophils % % Band Neutrophils % (0-4) % Lymphocytes % % Monocytes % % Neutrophils # (1.6-8.9) K/mcL Lymphocytes # (0.6-4.6) K/mcL Monocytes # (0.0-1.3) K/mcL Platelet Estimate (Normal) PT (9.4-12.1) Seconds INR APTT (26.0-36.0) Seconds Sodium (136-145) mEq/L Potassium (3.5-4.5) mEq/L Chloride (98-109) mEq/L Carbon Dioxide (19-29) mEq/L BUN (7-20) mg/dL Creatinine (0.57-1.11) mg/dL Est GFR ( Amer) (> 60) Est GFR (Non-Af Amer) (> 60) BUN/Creatinine Ratio (6-26) Glucose (70-99) mg/dL POC Glucose (58-89) Calculated Osmolality (280-300) Lactic Acid 0.9 (0.5-2.2) mmol/L Calcium (8.6-10.8) mg/dL Total Bilirubin (0.2-1.2) mg/dL Direct Bilirubin (0.0-0.5) mg/dL Indirect Bilirubin (0.0-1.2) mg/dL AST (5-34) Units/L ALT (0-55) Units/L Alkaline Phosphatase (38-126) Units/L Troponin I 0.01 (0-0.03) ng/mL C-Reactive Protein (Less than 5) mg/L Serum Total Protein (6.0-8.3) g/dL Albumin (3.5-5.0) g/dL Globulin (2.4-3.5) g/dL Albumin/Globulin Ratio (1.1-2.2) Urine Color Yellow (Yellow) Urine Clarity Cloudy A (Clear) Urine pH 6.0 (5.0-8.0) pH Units Ur Specific [place] 1.018 (1.010-1.025) Urine Protein 30 H (Neg-Trace) mg/dL Urine Glucose (UA) Normal (Normal) mg/dL Urine Ketones Negative (Negative) mg/dL Urine Blood Negative (Negative) Urine Nitrite Negative (Negative) Urine Bilirubin Negative (Negative) Urine Urobilinogen Normal (Normal) mg/dL Ur Leukocyte Esterase Small H (Negative) Urine Microscopic RBC Test Not Performed Urine Microscopic WBC 5-15 H (0-3) per hpf Ur Squamous Epith Cells Many H (None-Few) per lpf Urine Bacteria None Seen (None-Few) per hpf Hyaline Casts Few (None-Few) per lpf Urine Yeast Many H (None Seen) per hpf Ur Culture Indicated? YES A (NO) Stl C. diff Tox B Gene (Negative) Urine Opiates Screen (Bgsvbb=328) ng/mL Ur Barbiturates Screen (Jbppyz=365) ng/mL Ur Phencyclidine Scrn (Cutoff=25) ng/mL Ur Amphetamines Screen (Kqsqez=7057) ng/mL U Benzodiazepines Scrn (Mszgrc=273) ng/mL Urine Cocaine Screen (Cutoff= 300) ng/mL U Marijuana (THC) Screen (Cutoff = 50) ng/mL 07/25/16 07/25/16 07/25/16 Range/Units 21:56 22:17 22:46 WBC (4.3-11.1) K/mcL RBC (3.82-4.97) M/mcL Hgb (11.5-15.4) g/dL Hct (35.3-44.9) % MCV (83.0-100.0) fL MCH (28.0-33.3) pg MCHC (31.6-35.5) g/dL RDW (11.5-14.5) % Plt Count (140-400) K/mcL MPV (9.4-12.4) fL Seg Neutrophils % % Band Neutrophils % (0-4) % Lymphocytes % % Monocytes % % Neutrophils # (1.6-8.9) K/mcL Lymphocytes # (0.6-4.6) K/mcL Monocytes # (0.0-1.3) K/mcL Platelet Estimate (Normal) PT (9.4-12.1) Seconds INR APTT (26.0-36.0) Seconds Sodium (136-145) mEq/L Potassium (3.5-4.5) mEq/L Chloride (98-109) mEq/L Carbon Dioxide (19-29) mEq/L BUN (7-20) mg/dL Creatinine (0.57-1.11) mg/dL Est GFR ( Amer) (> 60) Est GFR (Non-Af Amer) (> 60) BUN/Creatinine Ratio (6-26) Glucose (70-99) mg/dL POC Glucose 208 H (58-89) Calculated Osmolality (280-300) Lactic Acid (0.5-2.2) mmol/L Calcium (8.6-10.8) mg/dL Total Bilirubin (0.2-1.2) mg/dL Direct Bilirubin (0.0-0.5) mg/dL Indirect Bilirubin (0.0-1.2) mg/dL AST (5-34) Units/L ALT (0-55) Units/L Alkaline Phosphatase (38-126) Units/L Troponin I (0-0.03) ng/mL C-Reactive Protein (Less than 5) mg/L Serum Total Protein (6.0-8.3) g/dL Albumin (3.5-5.0) g/dL Globulin (2.4-3.5) g/dL Albumin/Globulin Ratio (1.1-2.2) Urine Color (Yellow) Urine Clarity (Clear) Urine pH (5.0-8.0) pH Units Ur Specific [place] (1.010-1.025) Urine Protein (Neg-Trace) mg/dL Urine Glucose (UA) (Normal) mg/dL Urine Ketones (Negative) mg/dL Urine Blood (Negative) Urine Nitrite (Negative) Urine Bilirubin (Negative) Urine Urobilinogen (Normal) mg/dL Ur Leukocyte Esterase (Negative) Urine Microscopic RBC Urine Microscopic WBC (0-3) per hpf Ur Squamous Epith Cells (None-Few) per lpf Urine Bacteria (None-Few) per hpf Hyaline Casts (None-Few) per lpf Urine Yeast (None Seen) per hpf Ur Culture Indicated? (NO) Stl C. diff Tox B Gene Positive (Negative) Urine Opiates Screen Negative (Wndlem=701) ng/mL Ur Barbiturates Screen Negative (Xgopsh=179) ng/mL Ur Phencyclidine Scrn Negative (Cutoff=25) ng/mL Ur Amphetamines Screen Negative (Cpczpn=6636) ng/mL U Benzodiazepines Scrn Negative (Oseegx=235) ng/mL Urine Cocaine Screen Negative (Cutoff= 300) ng/mL U Marijuana (THC) Screen Negative (Cutoff = 50) ng/mL - Radiology Data Radiology results reviewed: Yes I reviewed the patient's radiology results.
[2016-07-25 21:21] LABS: Hematocrit 38.4 % (35.3-44.9); Hemoglobin 11.9 g/dL (11.5-15.4); Mean Corpuscular Hemoglobin 24.4 pg (28.0-33.3); Mean Corpuscular Volume 78.7 fL (83.0-100.0); Mean Platelet Volume 9.5 fL (9.4-12.4); Platelet Count 377 K/mcL (140-400); Red Blood Count 4.88 M/mcL (3.82-4.97); Red Cell Distribution Width 16.7 % (11.5-14.5)
[2016-07-25 21:26] LABS: INR 1.2
[2016-07-25 21:29] LABS: Activated Partial Thrombo Time 29.3 Seconds (26.0-36.0)
[2016-07-25 21:35] LABS: Alanine Aminotransferase 8 Units/L (0-55); Albumin 3.2 g/dL (3.5-5.0); Albumin/Globulin Ratio 0.7 (1.1-2.2); Alkaline Phosphatase 154 Units/L (38-126); Aspartate Amino Transferase 12 Units/L (5-34); BUN/Creatinine Ratio 26 (6-26); Bilirubin,Direct 0.3 mg/dL (0.0-0.5); Bilirubin,Indirect 0.3 mg/dL (0.0-1.2); Bilirubin,Total 0.6 mg/dL (0.2-1.2); Blood Urea Nitrogen 17 mg/dL (7-20); C-Reactive Protein 82 mg/L (Less than 5); Calcium 9.6 mg/dL (8.6-10.8); Carbon Dioxide 23 mEq/L (19-29); Chloride 106 mEq/L (98-109); Globulin 4.8 g/dL (2.4-3.5); Glucose 64 mg/dL (70-99); Osmolality,Calculated 292 (280-300); Potassium 3.1 mEq/L (3.5-4.5); Sodium 141 mEq/L (136-145); eGFR For African Americans > 60 (> 60); eGFR For Non-African Americans > 60 (> 60)
[2016-07-25 21:55] LABS: Lymphocytes # 3.3 K/mcL (0.6-4.6); Monocytes # 1.6 K/mcL (0.0-1.3); Neutrophils # 22.2 K/mcL (1.6-8.9); Platelet Estimate Normal (Normal)
[2016-07-25] MEDS ORDERED: 0.9 % Sodium Chloride 1,000 ML IVC ONE (22:01)
[2016-07-25 22:03] LABS: Bilirubin,Urine Negative (Negative); Blood,Urine Negative (Negative); Clarity,Urine Cloudy (Clear); Color,Urine Yellow (Yellow); Glucose,Urine (UA) Normal (Normal); Ketones,Urine Negative (Negative); Leukocyte Esterase,Urine Small (Negative); Nitrite,Urine Negative (Negative); Protein,Urine 30 mg/dL (Neg-Trace); Specific Gravity,Urine 1.018 (1.010-1.025); Urobilinogen,Urine Normal (Normal)
[2016-07-25 22:05] LABS: Bacteria,Urine None Seen per hpf (None-Few); Hyaline Casts,Urine Few per lpf (None-Few); Squamous Epithelial Cell,Urine Many per lpf (None-Few)
[2016-07-25 22:08] LABS: Amphetamine Screen,Urine Negative ng/mL (Cutoff=1000); Barbiturate Screen,Urine Negative ng/mL (Cutoff=200); Benzodiazepines Screen,Urine Negative ng/mL (Cutoff=200); Cannabinoid Screen,Urine Negative ng/mL (Cutoff = 50); Cocaine Screen,Urine Negative ng/mL (Cutoff= 300); Opiate Screen,Urine Negative ng/mL (Cutoff=300); Phencyclidine Screen,Urine Negative ng/mL (Cutoff=25)
[2016-07-25 22:15] LABS: Yeast,Urine Many per hpf (None Seen)
[2016-07-25] MEDS ORDERED: MetroNIDAZOLE 500 MG/100 ML 500 MG/100 ML BAG IVPB ONE (23:22)
[2016-07-25] MEDS ORDERED: Vancomycin Oral Soln 250 MG/2.5 ML UDC PO ONE (23:35)
[2016-07-26] MEDS ORDERED: Naloxone 0.4 MG/ML INJ IVP PRN (01:55)
[2016-07-26] MEDS ORDERED: 0.9 % Sodium Chloride 1,000 ML IVC SCH (02:00)
--- NOTE | 2016-07-26 02:01 | Internal Med History&Physical ---
Date of Encounter: 07/26/16 Time of Encounter: 01:30 Assessment and Plan (1) C. difficile diarrhea Current visit: Yes Status: Acute Pt was recently initiated with the prior spectrum antibiotics. Pt is started on probiotics and metronidazole. If not improving, consider adding oral vancomycin (2) Atrial fibrillation Current visit: Yes Status: Acute Possibly paroxysmal. EKG showed atrial fibrillation but the metal mockup maker showed sinus rhythm. Echocardiogram in 06/2016 showed LVEF of 55-605 and moderate diastolic dysfunction. CHADS2 score of 2 and CHADS VASc socre of 3. Consider cardiology consult and check TSH. Qualifiers: Atrial fibrillation type: paroxysmal Qualified Code(s): I48.0 - Paroxysmal atrial fibrillation (3) Diabetes mellitus Current visit: Yes Status: Chronic Start sliding scale insulin Qualifiers: Diabetes mellitus type: type 2 Diabetes mellitus complication status: with neurologic complications Diabetes mellitus complication detail: with unspecified neuropathy Diabetes mellitus senior living insulin use: with manager terminal use Qualified Code(s): E11.40 - Type 2 diabetes mellitus with diabetic neuropathy, unspecified; Z79.4 - intermediate (current) use of insulin (4) Hypoglycemia Current visit: Yes Status: Acute Monitor and start sliding scale insulin (5) Hypothermia Current visit: Yes Status: Acute Likely due to infection / sepsis. Improved. Check TSH Qualifiers: Encounter type: initial encounter Qualified Code(s): T68.XXXA - Hypothermia , initial encounter (6) Sepsis Current visit: Yes Status: Acute Likely due to c diff infection. Continue metronidazole and IV fluids. Lactic acid is 0.9. Qualifiers: Sepsis type: sepsis due to unspecified organism Qualified Code(s): A41.9 - Sepsis, unspecified organism (7) Abnormal urinalysis Current visit: Yes Status: Acute Urine culture pending. Hold antibiotics until cultures are available, (avoid broad spectrum / emperic antibiotics, due to c diff infection) Internal Medicine - H&P: HPI Chief complaint: Diarrhea Admitted From: Emergency Dept Plans for Post Hospital Care: Home History of present illness: Ms. Anthony Cook is a 55 year old female With Past medical history significant for diabetes mellitus, peripheral neuropathy, hypertension, hemangioma of liver. She was admitted to this hospital in June 2016, with sepsis, diabetic foot ulcer, pneumonia, UTI and was treated with broad-spectrum antibiotics. She had right BKA and was discharged to SNF. She reports multiple episodes of diarrhea started over a week ago while she was in the longterm and continued after discharge. She reports watery diarrhea about once every hour. She denies hematochezia, abdominal pain, nausea, vomiting, fever, chills, chest pain, shortness of breath. She has good apetite. She apparently was hypoglycemic just prior to this presentation and was confused. When EMS evaluate her, Blood glucose was apparently in the 40s. She was given D5W in the ER. Workup in the ER showed that her stool was positive for c.diff. she was given metronidazole and oral vancomycin. She is admitted to the hospitalist service for further management. Past Med Surg Social Fam HX - Past Medical History Medical history: diabetes, GERD, hyperlipidemia Psychiatric history: anxiety, depression - Past Surgical History Surgical History: cholecystectomy, other - Social History Smoking Status: Former smoker Smokeless Tobacco Status: No Alcohol use: none Drug use: unknown - Family History Mother Living Status: Hx Family Cardiac Disorders: Yes Hx Family Respiratory Disorders: No Hx Family Cancer: Yes Hx Family GI Disorders: No Hx Family Endocrine Disorder: No Hx Family Neuromuscular Disorders: No Hx Family Neurologic Disorders: No Hx Family HEENT Disorders: No Hx Family Autoimmune Disorders: No Father Living Status: Hx Family Endocrine Disorder: Yes Internal Medicine - H&P: Meds Medroxyprogesterone Acetate [Depo-Provera] 150 mg IJ [id number] 10/15/14 [History] Sertraline [Zoloft] 100 mg PO DAILY 10/15/14 [History] Omeprazole [PriLOSEC] 20 mg PO DAILY 06/19/16 [History] Acetaminophen [Tylenol] 650 mg PO Q6HR PRN #0 tablet 07/04/16 [Rx] Collagenase Oint [Santyl] 1 appl TP BID tube 07/04/16 [Rx] Docusate [Colace] 100 mg PO BID capsule 07/04/16 [Rx] Insulin DETEMIR [Levemir] 10 unit SQ BID [id number] 07/04/16 [Rx] Insulin LISPRO [HumaLOG] 8 units SQ TIDWM vial 07/04/16 [Rx] OxyCODONE/APAP 10/325 [Percocet 10/325 MG] 1 each PO Q6HR PRN #20 tablet [Rx] Ascorbic Acid [Vitamin C] 500 mg PO DAILY #30 tablet 07/20/16 [Rx] Bumetanide [Bumex] 2 mg PO DAILY #60 tablet 07/20/16 [Rx] Ferrous Sulfate 325 mg PO DAILY #30 tablet 07/20/16 [Rx] Magnesium Oxide [Mag-Ox] 400 mg PO DAILY #30 tablet 07/20/16 [Rx] Potassium Chloride 20 meq PO DAILY #30 tab.er.prt 07/20/16 [Rx] Spironolactone [Aldactone] 12.5 mg PO DAILY #15 tablet 07/20/16 [Rx] Allergies No Known Allergies Allergy (Verified 06/18/16 14:55) All Systems PM: A 10-system review of systems was performed and is negative for pertinent findings except as documented above in the HPI. - Constitutional Vitals: Temp Pulse Resp BP Pulse Ox 98.9 F 97 17 111/52 98 07/26/16 00:53 07/26/16 00:53 07/26/16 00:53 07/26/16 00:53 07/26/16 00:53 Exam: General: Not in acute distress at the time of my evaluation HEENT: Oral mucosa is dry. No conjunctival palor or scleral icterus Neck: No obvious neck swellings Lungs: Clear to auscultation Cardiac: Regular rate and rhythm. No significant murmurs Abdomen: Soft, non tender. Bowel sounds present Genitourinary: Woodson catheter Neurological: Alert and oriented. No gross localizing deficits Psych: Not aggressive or agitated Extremities: no significant leg edema Skin: No generalized rash Internal Med - H&P Results - Labs CBC & Chem 7: 07/26/16 03:32 07/25/16 21:10 - EKG Data -: EKG Interpreted by Myself - EKG Data EKG comments: Atrial fibrillation with heart rate of 102, QTC of 443 ms. However the metal mockup maker showed sinus rhythm. 07/26/16 08:05 07/26/16 08:06 - Impressions ITS Impressions Chest X-Ray 07/25/16 20:56 IMPRESSION: No acute cardiopulmonary disease. D/ / Bebeto Byrnes MD / Bebeto Byrnes MD Interpreting Provider: Bebeto Byrnes MD Head CT 07/25/16 20:56 IMPRESSION: No acute intracranial abnormality. D/ / Heladio Back MD / Heladio Back MD Interpreting Provider: Heladio Back MD
[2016-07-26] MEDS: *HR* OxyCODONE/APAP 10/325 TABLET PO PRN ×3 (04:03→20:26)
[2016-07-26 05:00] LABS: Basophils # 0.1 K/mcL (0.0-0.2); Basophils % 0.3 %; Eosinophils # 0.1 K/mcL (0.0-0.6); Eosinophils % 0.5 %; Hematocrit 32.4 % (35.3-44.9); Hemoglobin 9.7 g/dL (11.5-15.4); Immature Platelets 5.7 % (1.1-6.1); Lymphocytes # 2.5 K/mcL (0.6-4.6); Lymphocytes % 12.2 %; Magnesium 1.7 mg/dL (1.6-2.6); Mean Corpuscular HGB Conc 29.9 g/dL (31.6-35.5); Mean Corpuscular Hemoglobin 24.1 pg (28.0-33.3); Mean Corpuscular Volume 80.4 fL (83.0-100.0); Mean Platelet Volume 10.8 fL (9.4-12.4); Monocytes # 1.3 K/mcL (0.0-1.3); Monocytes % 6.6 %; Neutrophils # 15.7 K/mcL (1.6-8.9); Phosphorous 2.8 mg/dL (2.3-4.7); Platelet Count 292 K/mcL (140-400); Red Blood Count 4.03 M/mcL (3.82-4.97); Red Cell Distribution Width 16.8 % (11.5-14.5); Segmented Neutrophils % 77.4 %
[2016-07-26 05:18] LABS: Platelet Estimate Normal (Normal)
[2016-07-26] MEDS: *HR* Enoxaparin 40 MG/0.4 ML SYRINGE SQ SCH (06:29)
[2016-07-26] MEDS ORDERED: *HR* Dextrose 50 % in Water (Syg) 50 ML SYRINGE IVP PRN (06:43)
[2016-07-26] MEDS ORDERED: D5% in Water 1,000 ML IVC PRN (06:43)
[2016-07-26] MEDS ORDERED: Dextrose Gel 15 GM PO PRN ×2 (06:43)
[2016-07-26] MEDS ORDERED: MetroNIDAZOLE 500 MG/100 ML 500 MG/100 ML BAG IVPB SCH (08:00)
[2016-07-26] MEDS ORDERED: D5% in 0.45% NACL 1,000 ML IVC SCH (08:30)
[2016-07-26] MEDS: Insulin LISPRO 300 UNITS/3 ML VIAL SQ SCH ×4 (09:40→21:49)
[2016-07-26] MEDS: Lactobacillus 1 EACH CAP.SPRINK PO SCH ×2 (09:54→20:26)
[2016-07-26] MEDS: Vancomycin Oral Soln 250 MG/2.5 ML UDC PO SCH ×4 (09:54→20:26)
[2016-07-26 14:03] LABS: Acinetobacter baumannii by PCR Not Detected (Not Detect); Candida albicans by PCR Not Detected (Not Detect); Candida glabrata by PCR Not Detected (Not Detect); Candida krusei by PCR Not Detected (Not Detect); Candida parapsilosis by PCR Not Detected (Not Detect); Candida tropicalis by PCR Not Detected (Not Detect); Enterococcus by PCR ***DETECTED*** (Not Detect); Escherichia coli by PCR Not Detected (Not Detect); Klebsiella oxytoca by PCR Not Detected (Not Detect); Klebsiella pneumoniae by PCR Not Detected (Not Detect); Pseudomonas aeruginosa by PCR Not Detected (Not Detect); Serratia marcescens by PCR Not Detected (Not Detect); Staphylococcus aureus by PCR Not Detected (Not Detect); Streptococcus agalactiae(B)PCR Not Detected (Not Detect); Streptococcus by PCR Not Detected (Not Detect); Streptococcus pneumoniae PCR Not Detected (Not Detect); Streptococcus pyogenes (A) PCR Not Detected (Not Detect); blaKPC Carbapenem-Resist Gene Not Detected (Not Detect); mecA Methicillin-Resist Gene Not Detected (Not Detect); vanA/B Vancomycin-Resist Genes Not Detected (Not Detect)
[2016-07-26 15:15] LABS: Acinetobacter baumannii by PCR Not Detected (Not Detect); Candida albicans by PCR Not Detected (Not Detect); Candida glabrata by PCR Not Detected (Not Detect); Candida krusei by PCR Not Detected (Not Detect); Candida parapsilosis by PCR Not Detected (Not Detect); Candida tropicalis by PCR Not Detected (Not Detect); Enterococcus by PCR Not Detected (Not Detect); Escherichia coli by PCR Not Detected (Not Detect); Klebsiella oxytoca by PCR Not Detected (Not Detect); Klebsiella pneumoniae by PCR Not Detected (Not Detect); Pseudomonas aeruginosa by PCR Not Detected (Not Detect); Serratia marcescens by PCR Not Detected (Not Detect); Staphylococcus aureus by PCR ***DETECTED*** (Not Detect); Streptococcus agalactiae(B)PCR Not Detected (Not Detect); Streptococcus by PCR Not Detected (Not Detect); Streptococcus pneumoniae PCR Not Detected (Not Detect); Streptococcus pyogenes (A) PCR Not Detected (Not Detect); blaKPC Carbapenem-Resist Gene Not Detected (Not Detect); mecA Methicillin-Resist Gene ***DETECTED*** (Not Detect); vanA/B Vancomycin-Resist Genes Not Detected (Not Detect)
--- NOTE | 2016-07-26 15:36 | Infectious Disease Consult ---
Date of Encounter: 07/26/16 Time of Encounter: 15:34 Assessment and Plan (1) MRSA bacteremia Status: Acute Assessment and plan: source not clear I was concerned that the patient's source is the stump of the stump appears to be clean. Patient has no central lines. no endocarditis stigmata on the exam. Will need an echocardiogram prior to discharge.At this point the MRSA bacteremia appears to be non-complicated Repeat blood cultures 2 and 48 hours Start vancomycin with goal vancomycin trough 15-20 Monitor labs and for drug toxicity Discussed with Dr. Broussard, microbiology, and Abel from pharmacy (2) C. difficile colitis Status: Acute Assessment and plan: likely to recent antibiotics use. Patient started on oral vancomycin agree with current regimen Aggressive hydration (3) Diabetes mellitus Status: Chronic Qualifiers: Diabetes mellitus type: type 2 Diabetes mellitus complication status: with neurologic complications Diabetes mellitus complication detail: with unspecified neuropathy Diabetes mellitus assisted insulin use: with assisted use Qualified Code(s): E11.40 - Type 2 diabetes mellitus with diabetic neuropathy, unspecified; Z79.4 - halfway (current) use of insulin (4) Recent surgical procedure on lower extremity Status: Acute (5) C. difficile diarrhea Status: Acute (6) Sepsis Status: Acute Qualifiers: Sepsis type: methicillin susceptible Staphylococcus aureus Qualified Code(s ): A41.01 - Sepsis due to Methicillin susceptible Staphylococcus aureus Infectious Disease HPI - Data of Consult Patient: known to practice within the last 3 years Consult date: 07/26/16 Requesting Physician: Sarahy Singh Primary Care Provider: Almas Ac - Consult Narrative Reason for consult: sepsis History of present illness: Ms. Anthony Cook is a 55 year old female Was admitted back in June to [facility] with sepsis and diabetic foot ulcer pneumonia and UTI. Patient was evaluated and had an amputation below knee of the right lower extremity. Patient comes back today with severe diarrhea that started about a week ago and has been getting progressively worse. Patient denies any fevers or chills at home denies any nausea or vomiting. Patient states that he is having 6-10 bowel movements are watery at home. Patient denies any severe abdominal pain. Since admission, patient has been afebrile with a MAXIMUM TEMPERATURE of 99.4. Patient was tachycardic with a heart rate of 103. Her presenting lab revealed WBC of 27,000 with neutrophilic predominance of 76% with bands of 6%. Patients chemistry also revealed significant dehydration. Ill pus was elevated at 154. A urine culture was obtained and revealed some proteinuria small leukocyte esterase and WBC of 5-15 with many squamous epithelial cells suggesting contaminated specimen. C. difficile was checked and the patient came back positive. Cultures were obtained on 07/25/16 and the culture was positive for enterococcus species which does not appear to be VRE. Repeat culture was done 15 minutes later which was caught for gram-positive cocci on the culture and a PCR pickling grader MRSA. I spoke with microbiology and confirmed the findings. Patient denies any headache no neck stiffness no back pain no visual changes no rash. On further questioning patient has no hardware and interbody no pacemaker no nails are place or screws were anything to that extent. Patient tells me that her stump wound has healed beautifully and there is no dehiscence no drainage no erythema or no pain. CC: Sarahy Singh Past Med Surg Social Fam HX - Past Medical History Medical history: diabetes, GERD, hyperlipidemia Psychiatric history: anxiety, depression - Past Surgical History Surgical History: cholecystectomy, other - Social History Smoking Status: Former smoker Smokeless Tobacco Status: No Alcohol use: none Drug use: unknown - Family History Mother Living Status: Hx Family Cardiac Disorders: Yes Hx Family Respiratory Disorders: No Hx Family Cancer: Yes Hx Family GI Disorders: No Hx Family Endocrine Disorder: No Hx Family Neuromuscular Disorders: No Hx Family Neurologic Disorders: No Hx Family HEENT Disorders: No Hx Family Autoimmune Disorders: No Father Living Status: Hx Family Endocrine Disorder: Yes Infectious Disease-CN:Meds Medroxyprogesterone Acetate [Depo-Provera] 150 mg IJ [id number] 10/15/14 [History] Sertraline [Zoloft] 100 mg PO DAILY 10/15/14 [History] Omeprazole [PriLOSEC] 20 mg PO DAILY 06/19/16 [History] Acetaminophen [Tylenol] 650 mg PO Q6HR PRN #0 tablet 07/04/16 [Rx] Docusate [Colace] 100 mg PO BID capsule 07/04/16 [Rx] Insulin DETEMIR [Levemir] 10 unit SQ BID [id number] 07/04/16 [Rx] Insulin LISPRO [HumaLOG] 8 units SQ TIDWM vial 07/04/16 [Rx] Ascorbic Acid [Vitamin C] 500 mg PO DAILY #30 tablet 07/20/16 [Rx] Bumetanide [Bumex] 2 mg PO DAILY #60 tablet 07/20/16 [Rx] Ferrous Sulfate 325 mg PO DAILY #30 tablet 07/20/16 [Rx] Magnesium Oxide [Mag-Ox] 400 mg PO DAILY #30 tablet 07/20/16 [Rx] Potassium Chloride 20 meq PO DAILY #30 tab.er.prt 07/20/16 [Rx] Spironolactone [Aldactone] 12.5 mg PO DAILY #15 tablet 07/20/16 [Rx] Oxycodone HCl/Acetaminophen [Percocet 5-325 mg Tablet] 1 each PO Q6H PRN [History] Allergies No Known Allergies Allergy (Verified 07/26/16 10:32) Review of systems: 10 point review of systems done, negative other for what is mentioned in history of present illness. Exam - Constitutional Vitals: Temp Pulse Resp BP Pulse Ox 98.0 F 88 18 93/48 95 07/26/16 11:47 07/26/16 12:01 07/26/16 11:47 07/26/16 11:47 07/26/16 11:47 General appearance: disheveled, no acute distress, no febrile - Head Head exam: Present: atraumatic, normocephalic - Eye Eye exam: Present: EOMI, PERRL, sclera anicteric Additional comments: no conjunctival hemorrhage - Neck Neck exam: Present: full ROM. Absent: meningismus - Respiratory Respiratory exam: Present: CTAB. Absent: stridor, wheezes - Cardiovascular Cardiovascular exam: Present: RRR, +S1, +S2 Additional comments: no murmur audible - GI/Abdominal GI/Abdominal exam: Present: hyperactive bowel sounds, soft, tenderness - Extremities Exam Additional comments: left hand congenital deformity Right below knee amputation with clean stump no signs of wound infection - Back Exam Back exam: Present: normal inspection. Absent: CVA tenderness (L), CVA tenderness (R), vertebral tenderness - Neurological Exam Neurological exam: Present: alert, oriented X3, no focal deficits - Psychiatric Psychiatric exam: Present: normal affect, normal mood - Skin Additional comments: no rash, no endocarditis stigmata Infectious Disease CN: Results - Labs CBC & Chem 7: 07/26/16 03:32 07/25/16 21:10 Consult Discharge Plan - Plan Referrals: Almas Ac DO [Primary Care Provider] -
[2016-07-26] MEDS: Vancomycin 1,250 MG in D5% in Water 250 ML IVPB SCH (16:19)
[2016-07-27] MEDS: Vancomycin 1,250 MG in D5% in Water 250 ML IVPB SCH ×2 (03:42→17:48)
[2016-07-27 04:40] LABS: BUN/Creatinine Ratio 13 (6-26); Blood Urea Nitrogen 8 mg/dL (7-20); Calcium 8.4 mg/dL (8.6-10.8); Carbon Dioxide 21 mEq/L (19-29); Chloride 111 mEq/L (98-109); Glucose 191 mg/dL (70-99); Hematocrit 30.1 % (35.3-44.9); Hemoglobin 9.2 g/dL (11.5-15.4); Magnesium 1.6 mg/dL (1.6-2.6); Mean Corpuscular HGB Conc 30.6 g/dL (31.6-35.5); Mean Corpuscular Hemoglobin 24.1 pg (28.0-33.3); Mean Corpuscular Volume 78.8 fL (83.0-100.0); Mean Platelet Volume 10.2 fL (9.4-12.4); Osmolality,Calculated 293 (280-300); Platelet Count 269 K/mcL (140-400); Potassium 3.2 mEq/L (3.5-4.5); Red Blood Count 3.82 M/mcL (3.82-4.97); Red Cell Distribution Width 16.8 % (11.5-14.5); Sodium 140 mEq/L (136-145); eGFR For African Americans > 60 (> 60); eGFR For Non-African Americans > 60 (> 60)
[2016-07-27 05:27] LABS: Eosinophils # 0.4 K/mcL (0.0-0.6); Lymphocytes # 4.4 K/mcL (0.6-4.6); Monocytes # 0.5 K/mcL (0.0-1.3); Neutrophils # 7.5 K/mcL (1.6-8.9); Platelet Estimate Normal (Normal)
[2016-07-27] MEDS: *HR* Enoxaparin 40 MG/0.4 ML SYRINGE SQ SCH (06:35)
[2016-07-27] MEDS: Vancomycin Oral Soln 250 MG/2.5 ML UDC PO SCH ×3 (08:20→17:53)
[2016-07-27] MEDS: Lactobacillus 1 EACH CAP.SPRINK PO SCH ×2 (08:20→21:40)
[2016-07-27] MEDS: *HR* OxyCODONE/APAP 10/325 TABLET PO PRN ×2 (08:23→17:52)
[2016-07-27] MEDS: Insulin LISPRO 300 UNITS/3 ML VIAL SQ SCH ×4 (08:27→21:45)
--- NOTE | 2016-07-27 13:54 | Infectious Disease Progress No ---
Date of Encounter: 07/27/16 Time of Encounter: 13:53 - Assessment and Plan (1) Sepsis Current Visit: Yes Status: Acute The patient had hypothermia, tachycardia, and leukocytosis with bandemia on admission. Likely secondary to bacteremia and C. diff colitis. Improved. Tachycardia and hypothermia have resolved. WBC is trending down. Blood cultures drawn 07/25/16 are positive: 1 set positive for MRSA and 1 set is positive for Enterococcus, final ID and sensitivity are pending. Qualifiers: Sepsis type: methicillin susceptible Staphylococcus aureus Qualified Code(s ): A41.01 - Sepsis due to Methicillin susceptible Staphylococcus aureus (2) Bacteremia Current Visit: Yes Status: Acute Causative organism MRSA and Enterococcus species, final ID and sensitivity are pending. Uncomplicated. Blood cultures drawn 07/25/16 are positive: 1 set for MRSA and 1 set for Enterococcus species. Source unclear. No endocarditis stigmata noted on exam. The patient does not have any chronic indwelling lines or edward. The patient's right BKA surgical wound does not appear infected. The patient has one minor Modified King's Criteria. Get TTE. If negative, will likely need REBEKAH. Continue Vancomycin IV. Pharmacy to dose. Goal trough approximately 15. Repeat blood cultures x 2 sets in the AM. Duration of treatment depends on the clinical picture. Monitor renal function and dose-adjust antibiotics. (3) C. difficile diarrhea Current Visit: Yes Status: Acute Likely secondary to recent antibiotics use vs. picked up during recent ECF stay. Clinically, the patient appears improved. The patient reports 1 loose stool early this morning, but none since. Mild/Moderate. Continue oral vancomycin, but change dose to 125mg PO QID. Maintain contact/C. diff precautions. Duration of treatment depends on the clinical picture, but would recommend continuing at least 5-7 days past when antibiotics are discontinued. (4) Altered mental status Current Visit: Yes Status: Resolved Likely secondary to hypoglycemia and sepsis. Resolved. Qualifiers: Altered mental status type: unspecified Qualified Code(s): R41.82 - Altered mental status, unspecified (5) Hypokalemia Current Visit: No Status: Acute Likely secondary to GI loss. Management per the primary team. (6) Complete below knee amputation of right lower extremity Current Visit: No Status: Resolved Status post right BKA 06/30/[address] Keating. Clinically, the stump does not appear infected. Continue wound care as outline by the vascular team. Qualifiers: Encounter type: initial encounter Qualified Code(s): S88.111A - Complete traumatic amputation at level between knee and ankle, right lower leg, initial encounter (7) Diabetes mellitus Current Visit: Yes Status: Chronic Recommend aggressive glucose control and monitoring to promote wound healing and prevent re-infection. Management per the primary team. 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 No acute events noted overnight. Patient sitting up on the side the bed. She states she feels better today. States she's not had a bowel movement since early this morning. She denies any fevers or chills or rigors. She denies chest pain or shortness of breath. She denies any nausea, vomiting, or constipation. She denies any abdominal pain and states her appetite is okay. She does report that her blood sugars have been labile. She denies any oral thrush or skin lesions. She states that she is having some family pain from her prior right BKA. She states the wound looks good and there is been no drainage or redness at the surgical site. Infect Dis PN-Objective Data - Labs CBC & Chem 7: 07/28/16 03:58 07/28/16 03:58 Labs: Laboratory Results - last 24 hr 07/26/16 07/26/16 07/26/16 07:42 07:45 08:32 WBC RBC Hgb Hct MCV MCH MCHC RDW Plt Count MPV Seg Neutrophils % Band Neutrophils % Lymphocytes % Monocytes % Eosinophils % Metamyelocytes % Myelocytes % Neutrophils # Lymphocytes # Monocytes # Eosinophils # Platelet Estimate Sodium Potassium Chloride Carbon Dioxide BUN Creatinine Est GFR ( Amer) Est GFR (Non-Af Amer) BUN/Creatinine Ratio Glucose POC Glucose 45 L* 43 L* 51 L Calculated Osmolality Calcium Magnesium TSH 07/26/16 07/26/16 07/26/16 10:38 11:41 16:14 WBC RBC Hgb Hct MCV MCH MCHC RDW Plt Count MPV Seg Neutrophils % Band Neutrophils % Lymphocytes % Monocytes % Eosinophils % Metamyelocytes % Myelocytes % Neutrophils # Lymphocytes # Monocytes # Eosinophils # Platelet Estimate Sodium Potassium Chloride Carbon Dioxide BUN Creatinine Est GFR ( Amer) Est GFR (Non-Af Amer) BUN/Creatinine Ratio Glucose POC Glucose 241 H 245 H 343 H Calculated Osmolality Calcium Magnesium TSH 07/26/16 07/27/16 07/27/16 21:24 03:31 03:31 WBC 13.2 H RBC 3.82 Hgb 9.2 L Hct 30.1 L MCV 78.8 L MCH 24.1 L MCHC 30.6 L RDW 16.8 H Plt Count 269 MPV 10.2 Seg Neutrophils % 48.0 Band Neutrophils % 9.0 H Lymphocytes % 33.0 Monocytes % 4.0 Eosinophils % 3.0 Metamyelocytes % 1.0 H Myelocytes % 2.0 H Neutrophils # 7.5 Lymphocytes # 4.4 Monocytes # 0.5 Eosinophils # 0.4 Platelet Estimate Normal Sodium 140 Potassium 3.2 L Chloride 111 H Carbon Dioxide 21 BUN 8 Creatinine 0.61 Est GFR ( Amer) > 60 Est GFR (Non-Af Amer) > 60 BUN/Creatinine Ratio 13 Glucose 191 H POC Glucose 203 H Calculated Osmolality 293 Calcium 8.4 L Magnesium 1.6 TSH 07/27/16 03:31 WBC RBC Hgb Hct MCV MCH MCHC RDW Plt Count MPV Seg Neutrophils % Band Neutrophils % Lymphocytes % Monocytes % Eosinophils % Metamyelocytes % Myelocytes % Neutrophils # Lymphocytes # Monocytes # Eosinophils # Platelet Estimate Sodium Potassium Chloride Carbon Dioxide BUN Creatinine Est GFR ( Amer) Est GFR (Non-Af Amer) BUN/Creatinine Ratio Glucose POC Glucose Calculated Osmolality Calcium Magnesium TSH 2.122 Cultures: Cultures 07/25/16 21:43 Urine Culture - Final Urine,Clean Catch No pathogens isolated. 07/25/16 21:10 Blood Culture - Preliminary Peripheral Venipuncture Gram Positive Cocci 07/25/16 21:19 Blood Culture - Preliminary Peripheral Venipuncture Gram Positive Cocci Exam - Constitutional Vitals: Temp Pulse Resp BP Pulse Ox 98.2 F 85 18 127/63 97 07/27/16 12:01 07/27/16 12:01 07/27/16 12:01 07/27/16 12:01 07/27/16 12:01 General appearance: average body habitus, cooperative, no acute distress - Head Head exam: Present: atraumatic, normal inspection, normocephalic - Eye Eye exam: Present: EOMI, normal appearance, PERRL Pupils: Present: normal accommodation Additional comments: No subconjunctival hemorrhage noted. - ENT ENT exam: Present: mucous membranes moist - Neck Neck exam: Present: normal inspection - Respiratory Respiratory exam: Present: CTAB. Absent: rales, respiratory distress, rhonchi, wheezes - Cardiovascular Cardiovascular exam: Present: RRR, +S1, +S2 - GI/Abdominal GI/Abdominal exam: Present: normal bowel sounds, soft. Absent: distended, tenderness - Extremities Exam Extremities exam: Absent: joint swelling, pedal edema, tenderness Additional comments: Right BKA site dressing clean, dry, and intact. No surrounding erythema or tenderness noted. No endocarditis stigmata noted. - Back Exam Back exam: Present: normal inspection. Absent: paraspinal tenderness, vertebral tenderness - Neurological Exam Neurological exam: Present: alert, oriented X3, no focal deficits - Psychiatric Psychiatric exam: Present: normal affect, normal mood - Skin Skin exam: Present: dry, intact, normal color, warm Consult Discharge Plan - Plan Referrals: Almas Ac DO [Primary Care Provider] - (PATIENT IS FROM [facility], NO PCP APPOINTMENT NEEDED) - Attending Attestation I examined this patient and my medical decision-making was reviewed with the LAUNDRY MACHINE OPERATOR/PA/Advanced Practice Nurse/Resident Physician. I agree with the documented findings, disposition and treatment plan as described except to the extent set forth below.
--- NOTE | 2016-07-27 16:48 | Internal Med Progress Note ---
Date of Encounter: 07/27/16 Time of Encounter: 09:30 - Assessment and plan (1) Sepsis Current Visit: Yes Status: Acute Assessment and plan: Secondary to GPC bacteremia and C. difficile colitis. Patient did not present with IV lines. Anterior source of bacteremia. Could be secondary to left foot ulcer. 07/25: Blood cultures growing GPC 2/2 bottles. Urine culture negative. Chest x-rays showed no acute process. Appreciate ID team input. Continue IV vancomycin and oral vancomycin. Repeat blood cultures. Follow up final results of blood cultures. Qualifiers: Sepsis type: methicillin susceptible Staphylococcus aureus Qualified Code(s ): A41.01 - Sepsis due to Methicillin susceptible Staphylococcus aureus (2) Bacteremia Current Visit: Yes Status: Acute Assessment and plan: GPC bacteremia. Plan as above. (3) C. difficile colitis Current Visit: Yes Status: Acute Assessment and plan: Secondary to recent use of antibiotics. Continue oral vancomycin. Slowly improving. Patient reports less bowel movement today. (4) Diabetes mellitus Current Visit: Yes Status: Chronic Assessment and plan: Fasting glucose is 307. Patient takes 10 units of Levemir twice a day. Will resume home dose of Levemir. Continue insulin sliding scale and diabetic diet. Qualifiers: Diabetes mellitus type: type 2 Diabetes mellitus complication status: with neurologic complications Diabetes mellitus complication detail: with unspecified neuropathy Diabetes mellitus detention insulin use: with detention use Qualified Code(s): E11.40 - Type 2 diabetes mellitus with diabetic neuropathy, unspecified; Z79.4 - jail (current) use of insulin (5) Diabetic foot ulcer Current Visit: Yes Status: Acute Assessment and plan: Wound care consult. Qualifiers: Diabetic foot ulcer location: midfoot Diabetes mellitus type: type 2 Laterality: left Non-pressure ulcer stage: limited to breakdown of skin Qualified Code(s): E11.621 - Type 2 diabetes mellitus with foot ulcer; L97.421 - Non-pressure chronic ulcer of left heel and midfoot limited to breakdown of skin (6) Hypertension Current Visit: No Status: Chronic Assessment and plan: well controlled BP. Qualifiers: Hypertension type: essential hypertension Qualified Code(s): I10 - Essential (primary) hypertension (7) Hemangioma of liver Current Visit: No Status: Chronic (8) Peripheral artery disease Current Visit: No Status: Chronic - Subjective Interval history: Patient reports to lose bowel movements this morning. No abdominal pain. - Constitutional Vitals: Temp Pulse Resp BP Pulse Ox 98 F 83 18 119/62 97 07/27/16 15:00 07/27/16 15:00 07/27/16 15:00 07/27/16 15:00 07/27/16 15:00 General appearance: Present: cooperative, A&O X 3, pleasant, no acute distress, answers questions appropriately - Neck Neck exam general surgery: Present: supple, trachea midline. Absent: lymphadenopathy - Respiratory Respiratory exam: Present: CTAB - Cardiovascular Cardiovascular exam: Present: RRR - GI/Abdominal GI/Abdominal exam: Present: normal bowel sounds, soft. Absent: distended, tenderness - Extremities Exam Additional comments: Right below amputation, stump has no signs of infection. Left hand: Patient has amputation of 3 fingers. - Neurological Exam Neurological exam: Present: alert, oriented X3, no focal deficits, strengths equal and symetr throughout. Absent: facial droop, speech deficit - Skin Skin exam: Absent: rash Internal Medicine: Result - Labs CBC & Chem 7: 07/27/16 03:31 07/27/16 03:31 Labs: Short CBC 07/27/16 Range/Units 03:31 WBC 13.2 H (4.3-11.1) K/mcL Hgb 9.2 L (11.5-15.4) g/dL Hct 30.1 L (35.3-44.9) % Plt Count 269 (140-400) K/mcL Neutrophils # 7.5 (1.6-8.9) K/mcL BMP 07/27/16 03:31 Sodium 140 Potassium 3.2 L Chloride 111 H Carbon Dioxide 21 BUN 8 Creatinine 0.61 Glucose 191 H Calcium 8.4 L - ABG Interpretation ABG results: PT/INR, D-dimer PT 13.0 Seconds (9.4-12.1) H 07/25/16 21:10 Consult Discharge Plan - Plan Referrals: Almas Ac DO [Primary Care Provider] - (PATIENT IS FROM [facility], NO PCP APPOINTMENT NEEDED)
[2016-07-27] MEDS ORDERED: Insulin DETEMIR 100 UNIT/ML X5UNITS SQ SCH (17:00)
[2016-07-27] MEDS: Insulin DETEMIR 100 UNIT/ML X5UNITS SQ SCH (22:51)
[2016-07-28 04:18] LABS: Basophils # 0.1 K/mcL (0.0-0.2); Basophils % 0.6 %; Eosinophils # 0.2 K/mcL (0.0-0.6); Eosinophils % 1.6 %; Hematocrit 30.1 % (35.3-44.9); Hemoglobin 9.2 g/dL (11.5-15.4); Immature Granulocytes % 8.2 % (0-4); Lymphocytes % 26.8 %; Mean Corpuscular HGB Conc 30.6 g/dL (31.6-35.5); Mean Corpuscular Volume 78.4 fL (83.0-100.0); Mean Platelet Volume 9.7 fL (9.4-12.4); Monocytes # 0.7 K/mcL (0.0-1.3); Neutrophils # 6.3 K/mcL (1.6-8.9); Platelet Count 206 K/mcL (140-400); Red Blood Count 3.84 M/mcL (3.82-4.97); Red Cell Distribution Width 16.6 % (11.5-14.5); Segmented Neutrophils % 56.8 %
[2016-07-28] MEDS: Vancomycin 1,250 MG in D5% in Water 250 ML IVPB SCH ×2 (05:34→16:26)
[2016-07-28] MEDS: *HR* OxyCODONE/APAP 10/325 TABLET PO PRN ×3 (05:36→23:43)
[2016-07-28] MEDS: *HR* Enoxaparin 40 MG/0.4 ML SYRINGE SQ SCH (05:36)
[2016-07-28 05:39] LABS: BUN/Creatinine Ratio 11 (6-26); Blood Urea Nitrogen 8 mg/dL (7-20); Calcium 8.5 mg/dL (8.6-10.8); Carbon Dioxide 20 mEq/L (19-29); Chloride 108 mEq/L (98-109); Glucose 334 mg/dL (70-99); Magnesium 1.8 mg/dL (1.6-2.6); Osmolality,Calculated 297 (280-300); Potassium 3.5 mEq/L (3.5-4.5); Sodium 138 mEq/L (136-145); eGFR For African Americans > 60 (> 60); eGFR For Non-African Americans > 60 (> 60)
[2016-07-28] MEDS: Vancomycin Oral Soln 250 MG/2.5 ML UDC PO SCH ×5 (05:46→20:03)
[2016-07-28 06:15] LABS: Platelet Estimate Normal (Normal)
[2016-07-28] MEDS: Insulin LISPRO 300 UNITS/3 ML VIAL SQ SCH ×4 (08:09→21:40)
[2016-07-28] MEDS: Insulin DETEMIR 100 UNIT/ML X5UNITS SQ SCH ×3 (08:09→20:03)
[2016-07-28] MEDS: Lactobacillus 1 EACH CAP.SPRINK PO SCH ×2 (08:09→20:02)
--- NOTE | 2016-07-28 10:36 | Infectious Disease Progress No ---
Date of Encounter: 07/28/16 Time of Encounter: 10:34 - Assessment and Plan (1) Sepsis Current Visit: Yes Status: Acute The patient had hypothermia, tachycardia, and leukocytosis with bandemia on admission. Likely secondary to bacteremia and C. diff colitis. Improved. Tachycardia and hypothermia have resolved. WBC has normalized. Blood cultures drawn 07/25/16 are positive: 1 set positive for mecA gene Staph aureus that the oxacillin sensitive and 1 set is positive for Enterococcus, final ID and sensitivity are pending. Qualifiers: Sepsis type: methicillin susceptible Staphylococcus aureus Qualified Code(s ): A41.01 - Sepsis due to Methicillin susceptible Staphylococcus aureus (2) Bacteremia Current Visit: Yes Status: Acute Causative organism MRSA and Enterococcus species, final ID and sensitivity are pending. Uncomplicated. Blood cultures drawn 07/25/16 are positive: 1 set for mecA gene Staph aureus that is oxacillin sensitive and 1 set for Enterococcus species. Source unclear. No endocarditis stigmata noted on exam. The patient does not have any chronic indwelling lines or edward. The patient's right BKA surgical wound does not appear infected. The patient has one minor Modified King's Criteria. Get TTE (patient said this was done last night, but no reading is available). If negative, will likely need REBEKAH. Continue Vancomycin IV. Pharmacy to dose. Goal trough approximately 15. Repeat blood cultures x 2 sets drawn this morning are pending. Duration of treatment depends on the clinical picture. Monitor renal function and dose-adjust antibiotics. (3) C. difficile diarrhea Current Visit: Yes Status: Acute Likely secondary to recent antibiotics use vs. picked up during recent ECF stay. Clinically, the patient appears improved. She states her stools are still loose , but are less frequent. Mild/Moderate. Continue oral vancomycin 125mg PO QID. Maintain contact/C. diff precautions. Duration of treatment depends on the clinical picture, but would recommend continuing at least 5-7 days past when antibiotics are discontinued. (4) Altered mental status Current Visit: Yes Status: Resolved Likely secondary to hypoglycemia and sepsis. Resolved. Qualifiers: Altered mental status type: unspecified Qualified Code(s): R41.82 - Altered mental status, unspecified (5) Hypokalemia Current Visit: No Status: Acute Likely secondary to GI loss. Management per the primary team. (6) Complete below knee amputation of right lower extremity Current Visit: No Status: Resolved Status post right BKA 06/30/[address] Keating. Clinically, the stump does not appear infected. Continue wound care as outline by the vascular team. Qualifiers: Encounter type: initial encounter Qualified Code(s): S88.111A - Complete traumatic amputation at level between knee and ankle, right lower leg, initial encounter (7) Diabetes mellitus Current Visit: Yes Status: Chronic Recommend aggressive glucose control and monitoring to promote wound healing and prevent re-infection. Management per the primary team. 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 No acute events noted overnight. Patient lying in bed during exam. She states she feels better today. States she's not had a bowel movement since early this morning. She denies any fevers or chills or rigors. She denies chest pain or shortness of breath. She denies any nausea, vomiting, or constipation. She denies any abdominal pain and states her appetite is okay. She denies any oral thrush or skin lesions. She states that she is having some phantom limb pain from her prior right BKA. She states the wound looks good and there is been no drainage or redness at the surgical site. She reports she is still having loose stools, but they are less frequent and she has not had a BM today. Infect Dis PN-Objective Data - Labs CBC & Chem 7: 07/28/16 03:58 07/28/16 03:58 Labs: Laboratory Results - last 24 hr 07/27/16 07/27/16 07/27/16 07:48 11:52 16:51 WBC RBC Hgb Hct MCV MCH MCHC RDW Plt Count MPV Immature Gran % Seg Neutrophils % Lymphocytes % Monocytes % Eosinophils % Basophils % Neutrophils # Lymphocytes # Monocytes # Eosinophils # Basophils # Platelet Estimate Sodium Potassium Chloride Carbon Dioxide BUN Creatinine Est GFR ( Amer) Est GFR (Non-Af Amer) BUN/Creatinine Ratio Glucose POC Glucose 307 H 286 H 339 H Calculated Osmolality Calcium Phosphorus Magnesium Vancomycin Trough 07/27/16 07/28/16 07/28/16 20:34 03:58 03:58 WBC 11.1 RBC 3.84 Hgb 9.2 L Hct 30.1 L MCV 78.4 L MCH 24.0 L MCHC 30.6 L RDW 16.6 H Plt Count 206 MPV 9.7 Immature Gran % 8.2 H Seg Neutrophils % 56.8 Lymphocytes % 26.8 Monocytes % 6.0 Eosinophils % 1.6 Basophils % 0.6 Neutrophils # 6.3 Lymphocytes # 3.0 Monocytes # 0.7 Eosinophils # 0.2 Basophils # 0.1 Platelet Estimate Normal Sodium Potassium Chloride Carbon Dioxide BUN Creatinine Est GFR ( Amer) Est GFR (Non-Af Amer) BUN/Creatinine Ratio Glucose POC Glucose 378 H Calculated Osmolality Calcium Phosphorus Magnesium Vancomycin Trough 18.7 07/28/16 03:58 WBC RBC Hgb Hct MCV MCH MCHC RDW Plt Count MPV Immature Gran % Seg Neutrophils % Lymphocytes % Monocytes % Eosinophils % Basophils % Neutrophils # Lymphocytes # Monocytes # Eosinophils # Basophils # Platelet Estimate Sodium 138 Potassium 3.5 Chloride 108 Carbon Dioxide 20 BUN 8 Creatinine 0.74 Est GFR ( Amer) > 60 Est GFR (Non-Af Amer) > 60 BUN/Creatinine Ratio 11 Glucose 334 H POC Glucose Calculated Osmolality 297 Calcium 8.5 L Phosphorus 3.0 Magnesium 1.8 Vancomycin Trough Exam - Constitutional Vitals: Temp Pulse Resp BP Pulse Ox 97.8 F 79 15 122/80 94 07/28/16 07:47 07/28/16 07:47 07/28/16 07:47 07/28/16 07:47 07/28/16 07:47 General appearance: average body habitus, cooperative, no acute distress - Head Head exam: Present: atraumatic, normal inspection, normocephalic - Eye Eye exam: Present: EOMI, normal appearance, PERRL Pupils: Present: normal accommodation Additional comments: No subconjunctival hemorrhage noted. - ENT ENT exam: Present: mucous membranes moist - Neck Neck exam: Present: normal inspection - Respiratory Respiratory exam: Present: CTAB. Absent: rales, respiratory distress, rhonchi, wheezes - Cardiovascular Cardiovascular exam: Present: RRR, +S1, +S2 - GI/Abdominal GI/Abdominal exam: Present: normal bowel sounds, soft. Absent: distended, tenderness - Extremities Exam Extremities exam: Present: normal inspection. Absent: joint swelling, pedal edema, tenderness Additional comments: Right BKA stump dressing C/D/I. No erythema or edema noted. No endocarditis stigmata noted. - Back Exam Back exam: Present: normal inspection. Absent: paraspinal tenderness, vertebral tenderness - Neurological Exam Neurological exam: Present: alert, oriented X3, no focal deficits - Psychiatric Psychiatric exam: Present: normal affect, normal mood - Skin Skin exam: Present: dry, intact, normal color, warm Consult Discharge Plan - Plan Referrals: Almas Ac DO [Primary Care Provider] - (PATIENT IS FROM [facility], [facility], NO PCP APPOINTMENT NEEDED) - Attending Attestation I examined this patient and my medical decision-making was reviewed with the PORCELAIN WAXER/PA/Advanced Practice Nurse/Resident Physician. I agree with the documented findings, disposition and treatment plan as described except to the extent set forth below.
--- NOTE | 2016-07-28 10:58 | ECHO - Doppler Report ---
Echocardiogram Name: Maggie Cook Date of Study: 07/27/2016 Date: 1960 Ht: 70.0 in Medical Record#: [id number] Age: 55 Wt: 148.0 lb Gender: Female BSA: 1.84 Order #: [id number] Location: [facility] Room #: [id number] Reading Physician: Janee Quesada DO Dispersion Mixer: Adriana Prakash Ordering Physician: Sarahy Singh MD Primary Physician: Almas Ac DO Indications: gpc Bacteremia, suspected MRSA Impressions: LVEF 55%. Normal left ventricular size and systolic function. Normal right ventricular size and function. Mild mitral regurgitation. Mild tricuspid regurgitation. Probable borderline pulmonary hypertension. TR gradient 32 mmHg. IVC not well visualized to estimate RVSP. No evidence for valve vegetation on this study. Left Ventricular Wall Motion: Rest Echo Findings All wall segments showed normal motion. Findings: Study Quality * Technically adequate exam. ECG Findings * Normal sinus rhythm. Left Ventricle * Normal LV chamber size, wall thickness and function. * Indeterminate diastolic function. * LVEF 55%. Aorta * Normally sized aortic root. Mitral Valve * Normal mitral valve structure. * No mitral stenosis. * Mild mitral regurgitation. Aortic Valve * Aortic valve not well visualized. * No aortic stenosis. * Trace aortic regurgitation. Tricuspid Valve * Normal tricuspid valve structure. * Mild tricuspid regurgitation. Pulmonic Valve * Pulmonic valve is not well visualized. * No pulmonic stenosis. * No pulmonic regurgitation. Pulmonary Artery * Pulmonary artery not well visualized. Right Ventricle * Normal right ventricular structure and function. Right Atrium * Normal right atrial size. Pericardium * There is no pericardial effusion present. Left Atrium * Moderately dilated left atrium. Interatrial Septum * No evidence of PFO by color Doppler. IVC * The IVC is not well evaluated. History Diabetes Family History of CAD 06/19/2016 a Previous Echo was performed. Measurements: BP: 119/ 62 2D Normal Values RVIDd: 3.10 cm <2.7 cm IVSd: .90 cm 0.6 - 1.0 cm LVIDd: 4.90 cm 3.7 - 5.6 cm LVPWd: .90 cm 0.6 - 1.1 cm LVIDs: 3.40 cm 1.5 - 3.6 cm AO: 2.40 cm < 4.0 cm LA: 4.30 cm 2.0 - 4.0cm %FS: 30.60 cm >25 % LA volume: 82 Mitral Valve Peak E:.97 m/sec Peak A:.66 m/sec E/A Ratio:1.5 Tricuspid Valve TV Regurg Peak Grad: 32.00mmHg TV Regurg Peak Fuentes: 2.82m/sec Updated by Janee Quesada on 07/28/2016 10:54:19 AM electronically signed on 07/28/2016 10:54:58 AM with status of Final Wall Motion Pascal: 1=Normal, 2=Hypokinesis, 3=Akinesis, 4=Dyskinesis, 5=Aneurysmal, 6=Hyperkinetic, X=Not Visualized (Blank)=Missing
[2016-07-28] MEDS ORDERED: Insulin DETEMIR 100 UNIT/ML X5UNITS SQ ONE (16:11)
--- NOTE | 2016-07-28 16:22 | Internal Med Progress Note ---
Date of Encounter: 07/28/16 Time of Encounter: 13:00 - Assessment and plan (1) Sepsis Current Visit: Yes Status: Acute Assessment and plan: resolved. Secondary to MRSA/enterococcus bacteremia and C. difficile colitis. Patient did not present with IV lines. Unclear source of bacteremia. Could be secondary to left foot ulcer. 07/25: Blood cultures growing GPC 2/2 bottles. Urine culture negative. 07/28: repeat blood cultures pending results Chest x-rays showed no acute process. Appreciate ID team input. Continue IV vancomycin and oral vancomycin. Follow up final results of blood cultures. Qualifiers: Sepsis type: methicillin susceptible Staphylococcus aureus Qualified Code(s ): A41.01 - Sepsis due to Methicillin susceptible Staphylococcus aureus (2) Bacteremia Current Visit: Yes Status: Acute Assessment and plan: MRSA and enterococcus bacteremia. Plan as above. (3) C. difficile colitis Current Visit: Yes Status: Acute Assessment and plan: Secondary to recent use of antibiotics. Continue oral vancomycin. Slowly improving. Patient reports less watery bowel movement today. (4) Diabetes mellitus Current Visit: Yes Status: Chronic Assessment and plan: Fasting glucose still in the 200-300s. Patient takes 10 units of Levemir twice a day. Increase Levemir to 20 units bid. Continue insulin sliding scale and diabetic diet. Qualifiers: Diabetes mellitus type: type 2 Diabetes mellitus complication status: with neurologic complications Diabetes mellitus complication detail: with unspecified neuropathy Diabetes mellitus utility assembler insulin use: with snf use Qualified Code(s): E11.40 - Type 2 diabetes mellitus with diabetic neuropathy, unspecified; Z79.4 - continuous process coffee roaster (current) use of insulin (5) Diabetic foot ulcer Current Visit: Yes Status: Acute Assessment and plan: Wound care consult. Qualifiers: Diabetic foot ulcer location: midfoot Diabetes mellitus type: type 2 Laterality: left Non-pressure ulcer stage: limited to breakdown of skin Qualified Code(s): E11.621 - Type 2 diabetes mellitus with foot ulcer; L97.421 - Non-pressure chronic ulcer of left heel and midfoot limited to breakdown of skin (6) Hypertension Current Visit: No Status: Chronic Assessment and plan: well controlled BP. Holding home dose of aldactone and Bumex. Qualifiers: Hypertension type: essential hypertension Qualified Code(s): I10 - Essential (primary) hypertension (7) Hemangioma of liver Current Visit: No Status: Chronic (8) Peripheral artery disease Current Visit: No Status: Chronic - Subjective Interval history: Patient reports improvement of her symptoms, she denies any abdominal pain. Her bowel movements are becoming less watery. - Constitutional Vitals: Temp Pulse Resp BP Pulse Ox 97.9 F 79 15 124/57 94 07/28/16 11:32 07/28/16 11:32 07/28/16 11:32 07/28/16 11:32 07/28/16 11:32 General appearance: Present: cooperative, A&O X 3, pleasant, no acute distress, answers questions appropriately - Neck Neck exam general surgery: Present: supple, trachea midline. Absent: lymphadenopathy - Respiratory Respiratory exam: Present: CTAB - Cardiovascular Cardiovascular exam: Present: RRR - GI/Abdominal GI/Abdominal exam: Present: normal bowel sounds, soft. Absent: distended, tenderness - Extremities Exam Extremities exam: Absent: pedal edema - Back Exam Back exam: Absent: CVA tenderness (L), CVA tenderness (R) - Neurological Exam Neurological exam: Present: alert, oriented X3, no focal deficits, strengths equal and symetr throughout. Absent: facial droop, speech deficit - Skin Skin exam: Absent: rash Internal Medicine: Result - Labs CBC & Chem 7: 07/28/16 03:58 07/28/16 03:58 Labs: Short CBC 07/28/16 Range/Units 03:58 WBC 11.1 (4.3-11.1) K/mcL Hgb 9.2 L (11.5-15.4) g/dL Hct 30.1 L (35.3-44.9) % Plt Count 206 (140-400) K/mcL Neutrophils # 6.3 (1.6-8.9) K/mcL BMP 07/28/16 03:58 Sodium 138 Potassium 3.5 Chloride 108 Carbon Dioxide 20 BUN 8 Creatinine 0.74 Glucose 334 H Calcium 8.5 L - ABG Interpretation ABG results: PT/INR, D-dimer PT 13.0 Seconds (9.4-12.1) H 07/25/16 21:10 Consult Discharge Plan - Plan Referrals: Almas Ac DO [Primary Care Provider] - (PATIENT IS FROM [facility], NO PCP APPOINTMENT NEEDED)
[2016-07-29 05:07] LABS: Basophils # 0.1 K/mcL (0.0-0.2); Basophils % 0.6 %; Eosinophils # 0.2 K/mcL (0.0-0.6); Eosinophils % 1.8 %; Hematocrit 28.1 % (35.3-44.9); Hemoglobin 8.7 g/dL (11.5-15.4); Immature Granulocytes % 11.1 % (0-4); Lymphocytes # 3.2 K/mcL (0.6-4.6); Lymphocytes % 25.7 %; Mean Corpuscular Hemoglobin 24.4 pg (28.0-33.3); Mean Corpuscular Volume 78.7 fL (83.0-100.0); Mean Platelet Volume 10.1 fL (9.4-12.4); Monocytes # 0.7 K/mcL (0.0-1.3); Monocytes % 5.4 %; Neutrophils # 6.8 K/mcL (1.6-8.9); Platelet Count 204 K/mcL (140-400); Red Blood Count 3.57 M/mcL (3.82-4.97); Red Cell Distribution Width 16.5 % (11.5-14.5); Segmented Neutrophils % 55.4 %
[2016-07-29] MEDS: Vancomycin 1,250 MG in D5% in Water 250 ML IVPB SCH ×2 (05:18→16:26)
[2016-07-29] MEDS: *HR* Enoxaparin 40 MG/0.4 ML SYRINGE SQ SCH (05:18)
[2016-07-29 05:20] LABS: BUN/Creatinine Ratio 9 (6-26); Calcium 8.4 mg/dL (8.6-10.8); Carbon Dioxide 21 mEq/L (19-29); Chloride 112 mEq/L (98-109); Glucose 108 mg/dL (70-99); Magnesium 1.5 mg/dL (1.6-2.6); Osmolality,Calculated 292 (280-300); Sodium 142 mEq/L (136-145); eGFR For African Americans > 60 (> 60); eGFR For Non-African Americans > 60 (> 60)
[2016-07-29 05:21] LABS: Blood Urea Nitrogen 5 mg/dL (7-20)
[2016-07-29 06:05] LABS: Anisocytosis 1+ (Not Present); Platelet Estimate Normal (Normal); Polychromasia 1+ (Not Present)
[2016-07-29] MEDS: *HR* OxyCODONE/APAP 10/325 TABLET PO PRN ×3 (07:55→22:53)
[2016-07-29] MEDS: Lactobacillus 1 EACH CAP.SPRINK PO SCH ×2 (07:56→21:44)
[2016-07-29] MEDS: Vancomycin Oral Soln 250 MG/2.5 ML UDC PO SCH ×4 (07:56→21:46)
[2016-07-29] MEDS: Insulin DETEMIR 100 UNIT/ML X5UNITS SQ SCH ×2 (07:56→21:45)
[2016-07-29] MEDS: Insulin LISPRO 300 UNITS/3 ML VIAL SQ SCH ×4 (07:57→21:47)
[2016-07-29] MEDS ORDERED: Potassium Chloride 40 MEQ, Lidocaine 1% 2 ML in D5% in Water 500 ML IVPB ONE (11:03)
[2016-07-29] MEDS ORDERED: Magnesium Sulfate 1 GM in D5% in Water 100 ML IVPB ONE (11:03)
[2016-07-29] MEDS ORDERED: Lidocaine -MPF 1% 5 ML AMPUL INFILT ONE (12:55)
--- NOTE | 2016-07-29 18:21 | Internal Med Progress Note ---
Date of Encounter: 07/29/16 Time of Encounter: 11:00 - Assessment and plan (1) Sepsis Current Visit: Yes Status: Acute Assessment and plan: resolved. Secondary to MRSA/enterococcus bacteremia and C. difficile colitis. Patient did not present with IV lines. Unclear source of bacteremia. Could be secondary to left foot ulcer. 07/25: Blood cultures growing GPC 2/2 bottles. Urine culture negative. 07/28: repeat blood cultures are negative so far. Chest x-rays showed no acute process. Appreciate ID team input. Continue IV vancomycin and oral vancomycin. Follow up final results of blood cultures. Qualifiers: Sepsis type: methicillin susceptible Staphylococcus aureus Qualified Code(s ): A41.01 - Sepsis due to Methicillin susceptible Staphylococcus aureus (2) Bacteremia Current Visit: Yes Status: Acute Assessment and plan: MRSA and enterococcus bacteremia. Plan as above. (3) C. difficile colitis Current Visit: Yes Status: Acute Assessment and plan: Secondary to recent use of antibiotics. Continue oral vancomycin. Slowly improving. Patient reports bowel movements almost back to normal. (4) Diabetes mellitus Current Visit: Yes Status: Chronic Assessment and plan: Fasting glucose still in the 200-300s. Patient takes 10 units of Levemir twice a day. fasting 1119. Levemir to 20 units bid. Continue insulin sliding scale and diabetic diet. Qualifiers: Diabetes mellitus type: type 2 Diabetes mellitus complication status: with neurologic complications Diabetes mellitus complication detail: with unspecified neuropathy Diabetes mellitus termite technician insulin use: with longterm use Qualified Code(s): E11.40 - Type 2 diabetes mellitus with diabetic neuropathy, unspecified; Z79.4 - superintendent terminal (current) use of insulin (5) Diabetic foot ulcer Current Visit: Yes Status: Acute Assessment and plan: Wound care consulted. 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 Holding home dose of aldactone and Bumex. Qualifiers: Hypertension type: essential hypertension Qualified Code(s): I10 - Essential (primary) hypertension (7) Hemangioma of liver Current Visit: No Status: Chronic (8) Peripheral artery disease Current Visit: No Status: Chronic - Subjective Interval history: Patient reports her bowel movements are almost back to her normal. no abdominal pain. - Constitutional Vitals: Temp Pulse Resp BP Pulse Ox 98.1 F 80 15 145/66 97 07/29/16 16:03 07/29/16 16:03 07/29/16 16:03 07/29/16 16:03 07/29/16 16:03 General appearance: Present: cooperative, A&O X 3, pleasant, no acute distress, answers questions appropriately - Respiratory Respiratory exam: Present: CTAB - Cardiovascular Cardiovascular exam: Present: RRR - GI/Abdominal GI/Abdominal exam: Present: hyperactive bowel sounds, soft. Absent: distended, tenderness - Extremities Exam Extremities exam: Absent: pedal edema Additional comments: Right below amputation, stump has no signs of infection. left hand congenital deformity - Back Exam Back exam: Absent: CVA tenderness (L), CVA tenderness (R) - Neurological Exam Neurological exam: Present: alert, oriented X3. Absent: facial droop, speech deficit - Skin Skin exam: Absent: rash Internal Medicine: Result - Labs CBC & Chem 7: 07/29/16 04:33 07/29/16 04:33 Labs: Short CBC 07/29/16 Range/Units 04:33 WBC 12.3 H (4.3-11.1) K/mcL Hgb 8.7 L (11.5-15.4) g/dL Hct 28.1 L (35.3-44.9) % Plt Count 204 (140-400) K/mcL Neutrophils # 6.8 (1.6-8.9) K/mcL BMP 07/29/16 04:33 Sodium 142 Potassium 3.0 L Chloride 112 H Carbon Dioxide 21 BUN 5 L Creatinine 0.54 L Glucose 108 H Calcium 8.4 L - ABG Interpretation ABG results: PT/INR, D-dimer PT 13.0 Seconds (9.4-12.1) H 07/25/16 21:10 Consult Discharge Plan - Plan Instructions: Vancomycin (Injection), Atrial Fibrillation (DC), Acute Kidney Injury (DC), Acute Kidney Injury (GEN), Diabetes Mellitus Type 2 in Adults (DC) , Peripheral Vascular Disorders (DC), Sepsis (DC), Clostridium Difficile Infection (DC), Chronic Hypertension (DC), Anemia (GEN), Acute Kidney Injury, Software Maintenance Engineer (GEN) Referrals: Almas Ac DO [Primary Care Provider] - (PATIENT IS FROM [facility], NO PCP APPOINTMENT NEEDED) Prescriptions: Vancomycin [Vancocin] 1,250 mg IV Q12HR #35 vial
[2016-07-30] MEDS: Vancomycin 1,250 MG in D5% in Water 250 ML IVPB SCH ×2 (04:40→16:30)
[2016-07-30 04:56] LABS: Eosinophils # 0.2 K/mcL (0.0-0.6); Hemoglobin 8.3 g/dL (11.5-15.4); Mean Corpuscular HGB Conc 30.7 g/dL (31.6-35.5); Mean Corpuscular Hemoglobin 24.3 pg (28.0-33.3); Mean Corpuscular Volume 78.9 fL (83.0-100.0); Mean Platelet Volume 9.7 fL (9.4-12.4); Platelet Count 160 K/mcL (140-400); Red Blood Count 3.42 M/mcL (3.82-4.97); Red Cell Distribution Width 16.4 % (11.5-14.5)
[2016-07-30 05:01] LABS: BUN/Creatinine Ratio 9 (6-26); Calcium 8.5 mg/dL (8.6-10.8); Carbon Dioxide 25 mEq/L (19-29); Chloride 109 mEq/L (98-109); Glucose 207 mg/dL (70-99); Magnesium 1.5 mg/dL (1.6-2.6); Osmolality,Calculated 293 (280-300); Potassium 3.6 mEq/L (3.5-4.5); Sodium 140 mEq/L (136-145); eGFR For African Americans > 60 (> 60); eGFR For Non-African Americans > 60 (> 60)
[2016-07-30 05:02] LABS: Blood Urea Nitrogen 5 mg/dL (7-20)
[2016-07-30 05:32] LABS: Large Platelets Present (Not Present); Lymphocytes # 3.8 K/mcL (0.6-4.6); Monocytes # 0.4 K/mcL (0.0-1.3); Neutrophils # 5.6 K/mcL (1.6-8.9); Platelet Estimate Normal (Normal)
[2016-07-30 05:33] LABS: Reactive Lymphocytes Present (Not Present)
[2016-07-30] MEDS: *HR* OxyCODONE/APAP 10/325 TABLET PO PRN ×3 (06:35→21:38)
[2016-07-30] MEDS: *HR* Enoxaparin 40 MG/0.4 ML SYRINGE SQ SCH (06:35)
[2016-07-30] MEDS: Lactobacillus 1 EACH CAP.SPRINK PO SCH ×2 (09:35→21:39)
[2016-07-30] MEDS: Magnesium Oxide 400 MG TABLET PO SCH ×2 (09:35→21:39)
[2016-07-30] MEDS: Insulin LISPRO 300 UNITS/3 ML VIAL SQ SCH ×4 (09:35→21:37)
[2016-07-30] MEDS: Vancomycin Oral Soln 250 MG/2.5 ML UDC PO SCH ×4 (09:40→21:39)
[2016-07-30] MEDS: Insulin DETEMIR 100 UNIT/ML X5UNITS SQ SCH ×2 (11:30→21:38)
--- NOTE | 2016-07-30 11:50 | Internal Med Progress Note ---
Date of Encounter: 07/30/16 Time of Encounter: 10:30 - Assessment and plan (1) Sepsis Current Visit: Yes Status: Acute Assessment and plan: resolved. Secondary to MRSA/enterococcus bacteremia and C. difficile colitis. Patient did not present with IV lines. Unclear source of bacteremia. Could be secondary to left foot ulcer. 07/25: Blood cultures growing MRSA on bottle and pansensitive Enterococus faecalis the other bottle. Urine culture negative. 07/28: repeat blood cultures are negative so far. Chest x-rays showed no acute process. Appreciate ID team input. Continue IV vancomycin and oral vancomycin. human services professional helping with medications for discharge. patient will need IV vancomycin 1250 mg bid for a total of 14 days (stop date August 11) Qualifiers: Sepsis type: methicillin susceptible Staphylococcus aureus Qualified Code(s ): A41.01 - Sepsis due to Methicillin susceptible Staphylococcus aureus (2) Bacteremia Current Visit: Yes Status: Acute Assessment and plan: MRSA and pansensitive enterococcus faecalis bacteremia. Plan as above. (3) C. difficile colitis Current Visit: Yes Status: Acute Assessment and plan: Secondary to recent use of antibiotics. improved. Continue oral vancomycin. Patient reports bowel movements are back to normal. (4) Diabetes mellitus Current Visit: Yes Status: Chronic Assessment and plan: Fasting glucose still in the 200-300s. Patient takes 10 units of Levemir twice a day. fasting 168. Continue Levemir 20 units bid, insulin sliding scale and diabetic diet. Qualifiers: Diabetes mellitus type: type 2 Diabetes mellitus complication status: with neurologic complications Diabetes mellitus complication detail: with unspecified neuropathy Diabetes mellitus terminal manager insulin use: with prison use Qualified Code(s): E11.40 - Type 2 diabetes mellitus with diabetic neuropathy, unspecified; Z79.4 - alf (current) use of insulin (5) Diabetic foot ulcer Current Visit: Yes Status: Acute Assessment and plan: Wound care consulted. 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 Holding home dose of aldactone and Bumex. Qualifiers: Hypertension type: essential hypertension Qualified Code(s): I10 - Essential (primary) hypertension (7) Hemangioma of liver Current Visit: No Status: Chronic (8) Peripheral artery disease Current Visit: No Status: Chronic - Subjective Interval history: Patient reports her bowel movements are back to her normal. no abdominal pain. - Constitutional Vitals: Temp Pulse Resp BP Pulse Ox 97.8 F 86 18 148/67 96 07/30/16 08:20 07/30/16 08:20 07/30/16 08:20 07/30/16 08:20 07/30/16 08:20 General appearance: Present: cooperative, A&O X 3, pleasant, no acute distress, answers questions appropriately - Neck Neck exam general surgery: Present: supple, trachea midline. Absent: lymphadenopathy - Respiratory Respiratory exam: Present: CTAB - Cardiovascular Cardiovascular exam: Present: RRR - GI/Abdominal GI/Abdominal exam: Present: normal bowel sounds, soft. Absent: tenderness - Extremities Exam Additional comments: Right below amputation, stump has no signs of infection. left hand congenital deformity - Back Exam Back exam: Absent: CVA tenderness (L), CVA tenderness (R) - Neurological Exam Neurological exam: Present: alert, oriented X3, no focal deficits, strengths equal and symetr throughout. Absent: facial droop, speech deficit - Skin Skin exam: Absent: intact (there is a small ulcer at her left heel with no signs of infection.) Internal Medicine: Result - Labs CBC & Chem 7: 07/30/16 04:38 07/30/16 04:38 Labs: Short CBC 07/30/16 Range/Units 04:38 WBC 10.0 (4.3-11.1) K/mcL Hgb 8.3 L (11.5-15.4) g/dL Hct 27.0 L (35.3-44.9) % Plt Count 160 (140-400) K/mcL Neutrophils # 5.6 (1.6-8.9) K/mcL BMP 07/30/16 04:38 Sodium 140 Potassium 3.6 Chloride 109 Carbon Dioxide 25 BUN 5 L Creatinine 0.58 Glucose 207 H Calcium 8.5 L - ABG Interpretation ABG results: PT/INR, D-dimer PT 13.0 Seconds (9.4-12.1) H 07/25/16 21:10 Consult Discharge Plan - Plan Instructions: Vancomycin (Injection), Atrial Fibrillation (DC), Acute Kidney Injury (DC), Acute Kidney Injury (GEN), Diabetes Mellitus Type 2 in Adults (DC) , Peripheral Vascular Disorders (DC), Sepsis (DC), Clostridium Difficile Infection (DC), Chronic Hypertension (DC), Anemia (GEN), Acute Kidney Injury, 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
[2016-07-31] MEDS: Vancomycin 1,250 MG in D5% in Water 250 ML IVPB SCH ×2 (04:57→17:34)
[2016-07-31] MEDS: *HR* OxyCODONE/APAP 10/325 TABLET PO PRN ×3 (04:57→22:53)
[2016-07-31] MEDS: *HR* Enoxaparin 40 MG/0.4 ML SYRINGE SQ SCH (04:58)
[2016-07-31 05:11] LABS: Eosinophils # 0.2 K/mcL (0.0-0.6); Hematocrit 26.6 % (35.3-44.9); Hemoglobin 8.3 g/dL (11.5-15.4); Mean Corpuscular HGB Conc 31.2 g/dL (31.6-35.5); Mean Corpuscular Hemoglobin 24.7 pg (28.0-33.3); Mean Corpuscular Volume 79.2 fL (83.0-100.0); Mean Platelet Volume 10.3 fL (9.4-12.4); Platelet Count 159 K/mcL (140-400); Red Blood Count 3.36 M/mcL (3.82-4.97); Red Cell Distribution Width 16.7 % (11.5-14.5)
[2016-07-31 05:23] LABS: BUN/Creatinine Ratio 10 (6-26); Blood Urea Nitrogen 7 mg/dL (7-20); Calcium 8.5 mg/dL (8.6-10.8); Carbon Dioxide 27 mEq/L (19-29); Chloride 106 mEq/L (98-109); Glucose 317 mg/dL (70-99); Magnesium 1.6 mg/dL (1.6-2.6); Osmolality,Calculated 300 (280-300); Potassium 3.5 mEq/L (3.5-4.5); Sodium 140 mEq/L (136-145); eGFR For African Americans > 60 (> 60); eGFR For Non-African Americans > 60 (> 60)
[2016-07-31 05:41] LABS: Lymphocytes # 1.6 K/mcL (0.6-4.6); Monocytes # 0.4 K/mcL (0.0-1.3); Neutrophils # 7.1 K/mcL (1.6-8.9)
[2016-07-31 05:42] LABS: Platelet Estimate Normal (Normal)
[2016-07-31 05:43] LABS: Anisocytosis 1+ (Not Present)
[2016-07-31] MEDS: Vancomycin Oral Soln 250 MG/2.5 ML UDC PO SCH ×4 (09:08→22:10)
[2016-07-31] MEDS: Lactobacillus 1 EACH CAP.SPRINK PO SCH ×2 (09:09→22:10)
[2016-07-31] MEDS: Magnesium Oxide 400 MG TABLET PO SCH ×2 (09:09→22:10)
[2016-07-31] MEDS: Insulin LISPRO 300 UNITS/3 ML VIAL SQ SCH ×4 (09:09→22:17)
[2016-07-31] MEDS: Insulin DETEMIR 100 UNIT/ML X5UNITS SQ SCH ×2 (09:09→22:17)
--- NOTE | 2016-07-31 15:58 | Internal Med Progress Note ---
Date of Encounter: 07/31/16 Time of Encounter: 10:00 - Assessment and plan (1) Sepsis Current Visit: Yes Status: Acute Assessment and plan: resolved. Secondary to MRSA/enterococcus bacteremia and C. difficile colitis. Patient did not present with IV lines. Unclear source of bacteremia. Point of entry could be left foot ulcer. Qualifiers: Sepsis type: methicillin susceptible Staphylococcus aureus Qualified Code(s ): A41.01 - Sepsis due to Methicillin susceptible Staphylococcus aureus (2) Bacteremia Current Visit: Yes Status: Acute Assessment and plan: MRSA and pansensitive enterococcus faecalis bacteremia. 07/25: Blood cultures growing MRSA on bottle and pansensitive Enterococus faecalis the other bottle. Urine culture negative. 07/28: repeat blood cultures are negative so far. Chest x-rays showed no acute process. Appreciate ID team input. slowly improving. Continue IV vancomycin. access services librarian helping with medications for discharge. patient will need IV vancomycin 1250 mg bid for a total of 14 days (stop date August 11). (3) C. difficile colitis Current Visit: Yes Status: Acute Assessment and plan: Secondary to recent use of antibiotics. Improved. Continue oral Vancomycin. (4) Diabetes mellitus Current Visit: Yes Status: Chronic Assessment and plan: Fasting glucose still in the 200-300s. Patient takes 10 units of Levemir twice a day. accuchecks in the 300s likely due to dietary indiscretion. Continue Levemir 20 units bid, insulin sliding scale and diabetic diet. Qualifiers: Diabetes mellitus type: type 2 Diabetes mellitus complication status: with neurologic complications Diabetes mellitus complication detail: with unspecified neuropathy Diabetes mellitus fdc insulin use: with fdc use Qualified Code(s): E11.40 - Type 2 diabetes mellitus with diabetic neuropathy, unspecified; Z79.4 - long-term (current) use of insulin (5) Diabetic foot ulcer Current Visit: Yes Status: Acute Assessment and plan: Wound care consulted. 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 Holding home dose of aldactone and Bumex. Qualifiers: Hypertension type: essential hypertension Qualified Code(s): I10 - Essential (primary) hypertension (7) Hemangioma of liver Current Visit: No Status: Chronic (8) Peripheral artery disease Current Visit: No Status: Chronic - Subjective Interval history: Patient has no abdominal pain and no diarrhea. - Constitutional Vitals: Temp Pulse Resp BP Pulse Ox 97.6 F 94 16 124/72 95 07/31/16 07:59 07/31/16 07:59 07/31/16 07:59 07/31/16 07:59 07/31/16 07:59 General appearance: Present: cooperative, A&O X 3, pleasant, no acute distress, answers questions appropriately - Respiratory Respiratory exam: Present: CTAB - Cardiovascular Cardiovascular exam: Present: RRR - GI/Abdominal GI/Abdominal exam: Present: normal bowel sounds, soft. Absent: distended, tenderness - Extremities Exam Additional comments: R BKA - Back Exam Back exam: Absent: CVA tenderness (L), CVA tenderness (R) - Neurological Exam Neurological exam: Present: alert, oriented X3, no focal deficits, strengths equal and symetr throughout. Absent: facial droop, speech deficit - Skin Skin exam: Absent: rash Internal Medicine: Result - Labs CBC & Chem 7: 07/31/16 04:59 07/31/16 04:59 Labs: Short CBC 07/31/16 Range/Units 04:59 WBC 9.9 (4.3-11.1) K/mcL Hgb 8.3 L (11.5-15.4) g/dL Hct 26.6 L (35.3-44.9) % Plt Count 159 (140-400) K/mcL Neutrophils # 7.1 (1.6-8.9) K/mcL BMP 07/31/16 04:59 Sodium 140 Potassium 3.5 Chloride 106 Carbon Dioxide 27 BUN 7 Creatinine 0.68 Glucose 317 H Calcium 8.5 L - ABG Interpretation ABG results: PT/INR, D-dimer PT 13.0 Seconds (9.4-12.1) H 07/25/16 21:10 Consult Discharge Plan - Plan Instructions: Vancomycin (Injection), Atrial Fibrillation (DC), Acute Kidney Injury (DC), Acute Kidney Injury (GEN), Diabetes Mellitus Type 2 in Adults (DC) , Peripheral Vascular Disorders (DC), Sepsis (DC), Clostridium Difficile Infection (DC), Chronic Hypertension (DC), Anemia (GEN), Acute Kidney Injury, 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
[2016-08-01] MEDS: *HR* Enoxaparin 40 MG/0.4 ML SYRINGE SQ SCH (04:28)
[2016-08-01] MEDS: Vancomycin 1,250 MG in D5% in Water 250 ML IVPB SCH ×2 (04:28→16:03)
[2016-08-01 04:52] LABS: Hematocrit 26.4 % (35.3-44.9); Hemoglobin 8.2 g/dL (11.5-15.4); Mean Corpuscular HGB Conc 31.1 g/dL (31.6-35.5); Mean Corpuscular Hemoglobin 24.5 pg (28.0-33.3); Mean Corpuscular Volume 78.8 fL (83.0-100.0); Mean Platelet Volume 10.4 fL (9.4-12.4); Platelet Count 162 K/mcL (140-400); Red Blood Count 3.35 M/mcL (3.82-4.97); Red Cell Distribution Width 16.4 % (11.5-14.5)
[2016-08-01 04:56] LABS: BUN/Creatinine Ratio 15 (6-26); Blood Urea Nitrogen 9 mg/dL (7-20); Calcium 8.8 mg/dL (8.6-10.8); Carbon Dioxide 29 mEq/L (19-29); Chloride 103 mEq/L (98-109); Glucose 244 mg/dL (70-99); Osmolality,Calculated 293 (280-300); Potassium 3.6 mEq/L (3.5-4.5); Sodium 138 mEq/L (136-145); eGFR For African Americans > 60 (> 60); eGFR For Non-African Americans > 60 (> 60)
[2016-08-01] MEDS: *HR* OxyCODONE/APAP 10/325 TABLET PO PRN ×2 (04:56→12:14)
[2016-08-01 05:51] LABS: Eosinophils # 0.4 K/mcL (0.0-0.6); Lymphocytes # 3.1 K/mcL (0.6-4.6); Monocytes # 0.4 K/mcL (0.0-1.3); Platelet Estimate Normal (Normal)
[2016-08-01] MEDS: Vancomycin Oral Soln 250 MG/2.5 ML UDC PO SCH ×3 (09:30→16:03)
[2016-08-01] MEDS: Insulin LISPRO 300 UNITS/3 ML VIAL SQ SCH ×3 (09:30→16:21)
[2016-08-01] MEDS: Magnesium Oxide 400 MG TABLET PO SCH (09:30)
[2016-08-01] MEDS: Lactobacillus 1 EACH CAP.SPRINK PO SCH (09:30)
[2016-08-01] MEDS: Insulin DETEMIR 100 UNIT/ML X5UNITS SQ SCH (09:30)
--- NOTE | 2016-08-01 13:05 | Infectious Disease Progress No ---
Date of Encounter: 08/01/16 Time of Encounter: 13:03 - Assessment and Plan (1) Sepsis Current Visit: Yes Status: Acute The patient had hypothermia, tachycardia, and leukocytosis with bandemia on admission. Likely secondary to bacteremia and C. diff colitis. Resolved.9Tachycardia and hypothermia have resolved. WBC has normalized. Blood cultures drawn 07/25/16 are positive: 1 set positive for mecA gene Staph aureus that the oxacillin sensitive and 1 set is positive for Enterococcus faecalis, ampicillin and vanc sensitive. Repeat blood cultures drawn 07/28/16 x 2 sets are NGTD. Qualifiers: Sepsis type: methicillin susceptible Staphylococcus aureus Qualified Code(s ): A41.01 - Sepsis due to Methicillin susceptible Staphylococcus aureus (2) Bacteremia Current Visit: Yes Status: Acute Causative organism MRSA and Enterococcus faecalis. Blood cultures drawn 07/25/16 are positive: 1 set for mecA gene Staph aureus that is oxacillin sensitive and 1 set for Enterococcus faecalis. Source unclear. E. faecalis source ? GI d/t the patient's C. diff. No endocarditis stigmata noted on exam. The patient does not have any chronic indwelling lines or edward. The patient's right BKA surgical wound does not appear infected. The patient has one minor Modified King's Criteria. TTE negative for vegetations. Recommend REBEKAH to rule out IE. Continue Vancomycin IV. Pharmacy to dose. Goal trough approximately 15. Repeat blood cultures x 2 sets drawn 07/28/16 are NGTD. Duration of treatment depends on the clinical picture, but likely 2 weeks from the first set of negative blood cultures if REBEKAH negative. Monitor renal function and dose-adjust antibiotics. Social work consulted and following. Notes reviewed. (3) C. difficile diarrhea Current Visit: Yes Status: Acute Likely secondary to recent antibiotics use vs. picked up during recent ECF stay. Clinically, the patient appears markedly improved. Mild/Moderate. Continue oral vancomycin 125mg PO QID. Maintain contact/C. diff precautions. Duration of treatment depends on the clinical picture, but would recommend continuing at least 5-7 days past when antibiotics are discontinued. (4) Altered mental status Current Visit: Yes Status: Resolved Likely secondary to hypoglycemia and sepsis. Resolved. Qualifiers: Altered mental status type: unspecified Qualified Code(s): R41.82 - Altered mental status, unspecified (5) Hypokalemia Current Visit: No Status: Acute Likely secondary to GI loss. Management per the primary team. (6) Complete below knee amputation of right lower extremity Current Visit: No Status: Resolved Status post right BKA 06/30/[address] Keating. Clinically, the stump does not appear infected. Continue wound care as outline by the vascular team. Qualifiers: Encounter type: initial encounter Qualified Code(s): S88.111A - Complete traumatic amputation at level between knee and ankle, right lower leg, initial encounter (7) Diabetes mellitus Current Visit: Yes Status: Chronic Recommend aggressive glucose control and monitoring to promote wound healing and prevent re-infection. Management per the primary team. 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 We can noted to reviewed. No acute events noted overnight. Patient lying in bed during exam. She states she feels much better today. States her stools are still loose, but appear back to baseline. She reports one loose stool yesterday and none so far today. She denies any fevers or chills or rigors. She denies chest pain or shortness of breath. She denies any nausea, vomiting, or constipation. She denies any abdominal pain and states her appetite is okay. She denies any oral thrush or skin lesions. She states that she is having some phantom limb pain from her prior right BKA and left lower extremity pain that is chronic. She states the right BKA wound looks good and there is been no drainage or redness at the surgical site. Infect Dis PN-Objective Data - Labs CBC & Chem 7: 08/01/16 04:20 08/01/16 04:20 Labs: Laboratory Results - last 24 hr 07/31/16 07/31/16 07/31/16 07:56 11:21 15:12 WBC RBC Hgb Hct MCV MCH MCHC RDW Plt Count MPV Seg Neutrophils % Band Neutrophils % Lymphocytes % Monocytes % Eosinophils % Neutrophils # Lymphocytes # Monocytes # Eosinophils # Platelet Estimate Sodium Potassium Chloride Carbon Dioxide BUN Creatinine Est GFR ( Amer) Est GFR (Non-Af Amer) BUN/Creatinine Ratio Glucose POC Glucose 303 H 250 H Calculated Osmolality Calcium Vancomycin Trough 15.8 07/31/16 07/31/16 08/01/16 16:58 20:24 04:20 WBC 11.0 RBC 3.35 L Hgb 8.2 L Hct 26.4 L MCV 78.8 L MCH 24.5 L MCHC 31.1 L RDW 16.4 H Plt Count 162 MPV 10.4 Seg Neutrophils % 60.0 Band Neutrophils % 4.0 Lymphocytes % 28.0 Monocytes % 4.0 Eosinophils % 4.0 Neutrophils # 7.0 Lymphocytes # 3.1 Monocytes # 0.4 Eosinophils # 0.4 Platelet Estimate Normal Sodium Potassium Chloride Carbon Dioxide BUN Creatinine Est GFR ( Amer) Est GFR (Non-Af Amer) BUN/Creatinine Ratio Glucose POC Glucose 201 H 320 H Calculated Osmolality Calcium Vancomycin Trough 08/01/16 08/01/16 04:20 07:47 WBC RBC Hgb Hct MCV MCH MCHC RDW Plt Count MPV Seg Neutrophils % Band Neutrophils % Lymphocytes % Monocytes % Eosinophils % Neutrophils # Lymphocytes # Monocytes # Eosinophils # Platelet Estimate Sodium 138 Potassium 3.6 Chloride 103 Carbon Dioxide 29 BUN 9 Creatinine 0.60 Est GFR ( Amer) > 60 Est GFR (Non-Af Amer) > 60 BUN/Creatinine Ratio 15 Glucose 244 H POC Glucose 249 H Calculated Osmolality 293 Calcium 8.8 Vancomycin Trough Cultures: Cultures 07/28/16 11:34 Blood Culture - Preliminary Peripheral Venipuncture No growth. 07/28/16 03:58 Blood Culture - Preliminary Peripheral Venipuncture No growth. Exam - Constitutional Vitals: Temp Pulse Resp BP Pulse Ox 98.1 F 80 18 142/68 98 08/01/16 11:28 08/01/16 11:28 08/01/16 11:28 08/01/16 11:28 08/01/16 11:28 General appearance: average body habitus, cooperative, no acute distress - Head Head exam: Present: atraumatic, normal inspection, normocephalic - Eye Eye exam: Present: EOMI, normal appearance, PERRL Pupils: Present: normal accommodation Additional comments: No subsequent conjunctival hemorrhage noted. - ENT ENT exam: Present: mucous membranes moist - Neck Neck exam: Present: normal inspection - Respiratory Respiratory exam: Present: CTAB. Absent: rales, respiratory distress, rhonchi, wheezes - Cardiovascular Cardiovascular exam: Present: RRR, +S1, +S2 - GI/Abdominal GI/Abdominal exam: Present: normal bowel sounds, soft. Absent: distended, tenderness - Extremities Exam Extremities exam: Absent: joint swelling, pedal edema, tenderness Additional comments: Right BKA stump dressing clean, dry, and intact. Dressing noted to the medial aspect of the left first metatarsal head is clean, dry, and intact as well. No endocarditis stigmata noted. - Back Exam Back exam: Present: normal inspection. Absent: paraspinal tenderness, vertebral tenderness - Neurological Exam Neurological exam: Present: alert, oriented X3, no focal deficits - Psychiatric Psychiatric exam: Present: normal affect, normal mood - Skin Skin exam: Present: dry, intact, normal color, warm Consult Discharge Plan - Plan Instructions: Vancomycin (Injection), Atrial Fibrillation (DC), Acute Kidney Injury (DC), Acute Kidney Injury (GEN), Diabetes Mellitus Type 2 in Adults (DC) , Peripheral Vascular Disorders (DC), Sepsis (DC), Clostridium Difficile Infection (DC), Chronic Hypertension (DC), Anemia (GEN), Acute Kidney Injury, 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 I agree with the documented findings, disposition and treatment plan as described except to the extent set forth below.
[2016-08-01 16:29] VITALS: BP 129/64
--- NOTE | 2016-08-01 16:43 | Discharge Summary ---
Date of Encounter: 08/01/16 Time of Encounter: 16:41 - Discharge Diagnosis (1) Sepsis Priority: Primary Status: Acute Qualifiers: Sepsis type: methicillin susceptible Staphylococcus aureus Qualified Code(s ): A41.01 - Sepsis due to Methicillin susceptible Staphylococcus aureus (2) Bacteremia Priority: Primary Status: Acute (3) C. difficile colitis Priority: Primary Status: Acute (4) Diabetes mellitus Priority: Primary Status: Chronic Qualifiers: Diabetes mellitus type: type 2 Diabetes mellitus complication status: with neurologic complications Diabetes mellitus complication detail: with unspecified neuropathy Diabetes mellitus assisted insulin use: with long term care administrator use Qualified Code(s): E11.40 - Type 2 diabetes mellitus with diabetic neuropathy, unspecified; Z79.4 - keno terminal operator (current) use of insulin (5) Diabetic foot ulcer Priority: Primary Status: Chronic Qualifiers: Diabetic foot ulcer location: midfoot Diabetes mellitus type: type 2 Laterality: left Non-pressure ulcer stage: limited to breakdown of skin Qualified Code(s): E11.621 - Type 2 diabetes mellitus with foot ulcer; L97.421 - Non-pressure chronic ulcer of left heel and midfoot limited to breakdown of skin (6) Hypertension Priority: Secondary Status: Chronic Qualifiers: Hypertension type: essential hypertension Qualified Code(s): I10 - Essential (primary) hypertension (7) Hemangioma of liver Priority: Secondary Status: Chronic (8) Peripheral artery disease Priority: Secondary Status: Chronic - Discharge Medications Prescriptions: Vancomycin [Vancocin] 1,250 mg IV Q12HR #35 vial OxyCODONE/APAP 10/325 [Percocet 10/325 MG] 1 each PO TID PRN #20 tablet PRN Reason: Severe Pain (7-10) Home Medications: Medroxyprogesterone Acetate [Depo-Provera] 150 mg IJ [id number] 10/15/14 [History] Sertraline [Zoloft] 100 mg PO DAILY 10/15/14 [History] Omeprazole [PriLOSEC] 20 mg PO DAILY 06/19/16 [History] Acetaminophen [Tylenol] 650 mg PO Q6HR PRN #0 tablet 07/04/16 [Rx] Docusate [Colace] 100 mg PO BID capsule 07/04/16 [Rx] Insulin LISPRO [HumaLOG] 8 units SQ TIDWM vial 07/04/16 [Rx] Ascorbic Acid [Vitamin C] 500 mg PO DAILY #30 tablet 07/20/16 [Rx] Ferrous Sulfate 325 mg PO DAILY #30 tablet 07/20/16 [Rx] Spironolactone [Aldactone] 12.5 mg PO DAILY #15 tablet 07/20/16 [Rx] Vancomycin [Vancocin] 1,250 mg IV Q12HR #35 vial 07/29/16 [Rx] Collagenase Oint [Santyl] 1 appl TP DAILY tube 08/01/16 [Rx] Insulin DETEMIR [Levemir] 20 unit SQ BID #0 [id number] 08/01/16 [Rx] Lactobacillus [Culturelle] 1 each PO BID cap.sprink 08/01/16 [Rx] Magnesium Oxide [Mag-Ox] 400 mg PO BIDWM #30 tablet 08/01/16 [Rx] OxyCODONE/APAP 10/325 [Percocet 10/325 MG] 1 each PO TID PRN #20 tablet [Rx] Vancomycin Oral Soln [Vancocin] 125 mg PO QID #0 udc 08/01/16 [Rx] Allergies/Adverse Reactions: Allergies No Known Allergies Allergy (Verified 07/26/16 10:32) Date of admission: 07/26/16 01:55 Primary care physician: Almas Ac Consults: 07/26/16 15:07 Consult to Infectious Diseases [CONS] Routine Consulting Provider: Infect[facility] [place] Reason for Consult: Blood Cultures Call Completed: Yes 07/27/16 09:13 Consult to Wound Care [CONS] Routine Reason for Consult: decubitus ulcer Call Completed: No 07/29/16 12:53 Consult to Invasive Line Access Team [CONS] Routine Reason for Consult: home atb Line Type: PICC 07/29/16 12:55 Consult to Invasive Line Access Team [CONS] Routine Reason for Consult: Picc Line Insertion Line Type: PICC 07/29/16 13:58 Consult to Obstetrics Tech [CONS] Routine Reason for SW Consult: IV antibiotics for 2 weeks. Vancomycin - Patient Status Disposition: Transfer SNF Condition: Good Functional capacity at discharge: wheelchair bound Overall status at discharge: patient is progressing back to baseline - Ambulatory Orders Ambulatory Orders: EV REBEKAH transesophageal echo Time Frame: 1 Week, Facility: 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 Appt needs to be made after REBEKAH scheduled so Infectious disease has results before f/u appt.) - Diet and Activity Activity: as per physical therapy, resume usual activities as tolerated Diet: diabetic diet Interval History: Patient has no complains. no diarrhea. she is eating well. Hospital course: Ms. Anthony Cook is a 55 year old female with past medical history of DM, diabetic foot ulcer, and R BKA who presented with diarrhea. C diff test was positive and she was started on oral Vancomycin. Also, Blood cultures grew MRSA and sensitive enterococcus. She received IV Vancomycin with negative repeat blood cultures. Her diarrhea resolved and she remained hemodynamically stable. Her levemir was adjusted for her glucose levels. PLAN: REBEKAH in 1 week. follow up in the ID clinic in 2 weeks. continue IV vancomycin until August 11 and oral vancomycin until August 18. - Time Spent with Patient Total time spent providing and/or coordinating discharge services: - Constitutional Vitals: Temp Pulse Resp BP Pulse Ox 97.6 F 83 17 129/64 97 08/01/16 16:27 08/01/16 16:27 08/01/16 16:27 08/01/16 16:27 08/01/16 16:27 General appearance: Present: cooperative, A&O X 3, pleasant, no acute distress, answers questions appropriately - Respiratory Respiratory exam: Present: CTAB - Cardiovascular Cardiovascular exam: Present: RRR - GI/Abdominal GI/Abdominal exam: Present: normal bowel sounds, soft. Absent: distended, tenderness - Neurological Exam Neurological exam: Present: alert, oriented X3, no focal deficits. Absent: facial droop, speech deficit - Skin Skin exam: Absent: rash
--- NOTE | 2016-08-01 16:51 | Physician Discharge Referral ---
ExtendedCare Referral Info Transfer To: [facility] Provider in Charge: MANAS Provider in Charge after Transfer: PCP Institutional Level of Care: Skilled - Diagnosis (1) Sepsis Status: Acute (2) Bacteremia Status: Acute (3) C. difficile colitis Status: Acute (4) Diabetes mellitus Status: Chronic (5) Diabetic foot ulcer Status: Acute (6) Hypertension Status: Chronic (7) Hemangioma of liver Status: Chronic (8) Peripheral artery disease Status: Chronic - Transfer Medications Prescriptions: Vancomycin [Vancocin] 1,250 mg IV Q12HR #35 vial OxyCODONE/APAP 10/325 [Percocet 10/325 MG] 1 each PO TID PRN #20 tablet PRN Reason: Severe Pain (7-10) Home Medications: Medroxyprogesterone Acetate [Depo-Provera] 150 mg IJ [id number] 10/15/14 [History] Sertraline [Zoloft] 100 mg PO DAILY 10/15/14 [History] Omeprazole [PriLOSEC] 20 mg PO DAILY 06/19/16 [History] Acetaminophen [Tylenol] 650 mg PO Q6HR PRN #0 tablet 07/04/16 [Rx] Docusate [Colace] 100 mg PO BID capsule 07/04/16 [Rx] Insulin LISPRO [HumaLOG] 8 units SQ TIDWM vial 07/04/16 [Rx] Ascorbic Acid [Vitamin C] 500 mg PO DAILY #30 tablet 07/20/16 [Rx] Ferrous Sulfate 325 mg PO DAILY #30 tablet 07/20/16 [Rx] Spironolactone [Aldactone] 12.5 mg PO DAILY #15 tablet 07/20/16 [Rx] Vancomycin [Vancocin] 1,250 mg IV Q12HR #35 vial 07/29/16 [Rx] Collagenase Oint [Santyl] 1 appl TP DAILY tube 08/01/16 [Rx] Insulin DETEMIR [Levemir] 20 unit SQ BID #0 [id number] 08/01/16 [Rx] Lactobacillus [Culturelle] 1 each PO BID cap.sprink 08/01/16 [Rx] Magnesium Oxide [Mag-Ox] 400 mg PO BIDWM #30 tablet 08/01/16 [Rx] OxyCODONE/APAP 10/325 [Percocet 10/325 MG] 1 each PO TID PRN #20 tablet [Rx] Vancomycin Oral Soln [Vancocin] 125 mg PO QID #0 udc 08/01/16 [Rx] Allergies/Adverse Reactions: Allergies No Known Allergies Allergy (Verified 07/26/16 10:32) - Respiratory Orders Smoking Cessation: Smoking cessation has been advised. For more information, call the [place] Tobacco Quit Line at 8-429-PIFK-NOW. - Lab Orders Lab Orders: Other (include drug levels w/frequency) (MAGNESIUM AND POTASSIUM ON 08/05/16) - Advance Directives Code Status: Full Code - Mobility Orders Chair - Rehabiliation Orders Rehab Potential: Fair Rehab Orders: Evaluation for Physical Therapy, Evaluation for Occupational Therapy - Treatments List/Other: WOUND CARE CONSULT. LEFT HEEL ULCER: cleanse with soap and water, covered with adaptic gauze and a DSD. apply santyl daily. - Diet Orders No Concentrated Sweets CERTIFICATION: I certify that the transfer of the above named patient to an Extended Care Facility is necessary for the continuing treatment of the diagnosis listed. The above information is true and accurate reflection of patient's current condition. Confidential - Redisclosure prohibited without a patient's written consent.
[2016-08-01] MEDS ORDERED: Aminoglycoside Consult 1 EACH MC ONE (19:29)
== END 2016-08-01 19:30 | DRG 872 ==
LOC: 2NNU 20:46 → EMEROO 20:46 → 2NNU 07-26 00:31 → 2NENU 07-27 14:45
PROVIDERS: ADMIT Pediatrics; ATTEND Internal Medicine

== ENCOUNTER 2017-08-03 16:44 | Inpatient (IN) ==
[2017-08-03 17:31] LABS: Basophils # 0.1 K/mcL (0.0-0.2); Basophils % 0.4 %; Eosinophils # 0.2 K/mcL (0.0-0.6); Eosinophils % 1.3 %; Hematocrit 38.9 % (35.3-44.9); Hemoglobin 11.9 g/dL (11.5-15.4); Immature Granulocytes % 1.4 % (0-4); Lymphocytes # 2.4 K/mcL (0.6-4.6); Lymphocytes % 20.8 %; Mean Corpuscular HGB Conc 30.6 g/dL (31.6-35.5); Mean Corpuscular Hemoglobin 23.9 pg (28.0-33.3); Mean Corpuscular Volume 78.3 fL (83.0-100.0); Mean Platelet Volume 10.1 fL (9.4-12.4); Monocytes # 0.7 K/mcL (0.0-1.3); Monocytes % 6.4 %; Neutrophils # 7.9 K/mcL (1.6-8.9); Platelet Count 298 K/mcL (140-400); Red Blood Count 4.97 M/mcL (3.82-4.97); Red Cell Distribution Width 15.3 % (11.5-14.5); Segmented Neutrophils % 69.7 %
[2017-08-03 18:01] LABS: Troponin I 0.03 ng/mL (< 0.04)
[2017-08-03 18:04] LABS: Alanine Aminotransferase 7 Units/L (7-52); Albumin 3.7 g/dL (3.5-5.7); Albumin/Globulin Ratio 1.4 (1.1-2.2); Alkaline Phosphatase 100 Units/L (34-104); Amylase 15 Units/L (29-103); Aspartate Amino Transferase 8 Units/L (13-39); BUN/Creatinine Ratio 40 (6-26); Bilirubin,Total 0.6 mg/dL (0.3-1.0); Blood Urea Nitrogen 21 mg/dL (6-20); Carbon Dioxide 25 mEq/L (23-29); Chloride 107 mEq/L (98-107); Globulin 2.6 g/dL (2.4-3.5); Glucose 140 mg/dL (70-105); Lipase < 3 Units/L (11-82); Osmolality,Calculated 297 (280-300); Potassium 4.1 mEq/L (3.5-5.1); Sodium 141 mEq/L (136-145); Total Protein 6.3 g/dL (6.4-8.9); eGFR For African Americans > 60 (> 60); eGFR For Non-African Americans > 60 (> 60)
[2017-08-03] MEDS ORDERED: Isovue-370 500 ML INFUS..BTL IV ONE (19:15)
[2017-08-03 19:43] LABS: INR 1.3; Prothrombin Time 14.6 Seconds (9.4-12.1)
[2017-08-03 20:13] LABS: Clarity,Urine Clear (Clear); Color,Urine Yellow (Yellow); Glucose,Urine (UA) Normal (Normal)
[2017-08-03 20:14] LABS: Bilirubin,Urine Negative (Negative); Blood,Urine Negative (Negative); Ketones,Urine Negative (Negative); Leukocyte Esterase,Urine Negative (Negative); Nitrite,Urine Negative (Negative); Protein,Urine Trace mg/dL (Neg-Trace); Urobilinogen,Urine Normal (Normal)
--- NOTE | 2017-08-03 20:33 | Emergency Department Note ---
Disposition Clinical Impression: Ascites Qualifiers: Ascites type: other type Qualified Code(s): R18.8 - Other ascites Disposition: Admitted As Inpatient Referrals: Almas Ac DO [Primary Care Provider] - General Adult HPI - General Chief complaint: ED Shortness of Breath/Dyspnea Stated complaint: "fluid retention", JESSIE Time Seen by Provider: 08/03/17 18:55 Source: patient Limitations: no limitations - History of Present Illness Pain Scale: 10 - Related Data Home Medications Medication Instructions Recorded Confirmed Medroxyprogesterone Acetate 150 mg IJ [id number] 10/15/14 07/26/16 [Depo-Provera] Sertraline [Zoloft] 100 mg PO DAILY 10/15/14 07/26/16 Omeprazole [PriLOSEC] 20 mg PO DAILY 06/19/16 07/26/16 Previous Rx's Medication Instructions Recorded Acetaminophen [Tylenol] 650 mg PO Q6HR PRN #0 tablet 07/04/16 Docusate [Colace] 100 mg PO BID capsule 07/04/16 Insulin LISPRO [HumaLOG] 8 units SQ TIDWM vial 07/04/16 Ascorbic Acid [Vitamin C] 500 mg PO DAILY #30 tablet 07/20/16 Ferrous Sulfate 325 mg PO DAILY #30 tablet 07/20/16 Spironolactone [Aldactone] 12.5 mg PO DAILY #15 tablet 07/20/16 Vancomycin [Vancocin] 1,250 mg IV Q12HR #35 vial 07/29/16 Collagenase Oint [Santyl] 1 appl TP DAILY tube 08/01/16 Insulin DETEMIR [Levemir] 20 unit SQ BID #0 [id number] 08/01/16 Lactobacillus [Culturelle] 1 each PO BID cap.sprink 08/01/16 Magnesium Oxide [Mag-Ox] 400 mg PO BIDWM #30 tablet 08/01/16 OxyCODONE/APAP 10/325 [Percocet 1 each PO TID PRN #20 tablet 08/01/16 10/325 MG] Vancomycin Oral Soln [Vancocin] 125 mg PO QID #0 udc 08/01/16 Allergies Allergy/AdvReac Type Severity Reaction Status Date / Time No Known Allergies Allergy Verified 08/03/17 16:55 Past Medical History - Past Medical History Medical history: Reports: diabetes, GERD, hyperlipidemia Surgical history: Reports: cholecystectomy, other Psychiatric history: Reports: anxiety, depression 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 HEALTH 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: Reports: no BEHAVIORAL HEALTH 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 - Social History Smoking Status: Former smoker Smokeless Tobacco Status: No Alcohol use: Reports: none Drug use: Reports: none Physical Exam - General Limitations: no limitations General appearance: alert Course Vital Signs Temperature 98.2 F 08/03/17 16:55 Pulse Rate 95 08/03/17 16:55 Respiratory Rate 20 08/03/17 16:55 Blood Pressure 146/84 08/03/17 16:55 O2 Sat by Pulse Oximetry 92 08/03/17 16:55 Temperature 98.2 F 08/03/17 16:55 Pulse Rate 96 08/03/17 19:36 Respiratory Rate 18 08/03/17 19:36 Blood Pressure 151/83 08/03/17 19:36 O2 Sat by Pulse Oximetry 91 08/03/17 19:36 Oxygen Delivery Oxygen Delivery Room Air Medical Decision Making - Lab Data Result diagrams: 08/03/17 17:09 08/03/17 17:09 Lab Results 08/03/17 08/03/17 08/03/17 Range/Units 17:09 17:09 17:10 WBC 11.3 H (4.3-11.1) K/mcL RBC 4.97 (3.82-4.97) M/mcL Hgb 11.9 (11.5-15.4) g/dL Hct 38.9 (35.3-44.9) % MCV 78.3 L (83.0-100.0) fL MCH 23.9 L (28.0-33.3) pg MCHC 30.6 L (31.6-35.5) g/dL RDW 15.3 H (11.5-14.5) % Plt Count 298 (140-400) K/mcL MPV 10.1 (9.4-12.4) fL Immature Gran % 1.4 (0-4) % Seg Neutrophils % 69.7 % Lymphocytes % 20.8 % Monocytes % 6.4 % Eosinophils % 1.3 % Basophils % 0.4 % Neutrophils # 7.9 (1.6-8.9) K/mcL Lymphocytes # 2.4 (0.6-4.6) K/mcL Monocytes # 0.7 (0.0-1.3) K/mcL Eosinophils # 0.2 (0.0-0.6) K/mcL Basophils # 0.1 (0.0-0.2) K/mcL PT 14.6 H (9.4-12.1) Seconds INR 1.3 Sodium 141 (136-145) mEq/L Potassium 4.1 (3.5-5.1) mEq/L Chloride 107 (98-107) mEq/L Carbon Dioxide 25 (23-29) mEq/L BUN 21 H (6-20) mg/dL Creatinine 0.52 L (0.60-1.20) mg/dL Est GFR ( Amer) > 60 (> 60) Est GFR (Non-Af Amer) > 60 (> 60) BUN/Creatinine Ratio 40 H (6-26) Glucose 140 H (70-105) mg/dL Calculated Osmolality 297 (280-300) Calcium 9.0 (8.6-10.3) mg/dL Total Bilirubin 0.6 (0.3-1.0) mg/dL AST 8 L (13-39) Units/L ALT 7 (7-52) Units/L Alkaline Phosphatase 100 (34-104) Units/L Troponin I 0.03 (< 0.04) ng/mL B-Natriuretic Peptide (Less than 100) pg/mL Serum Total Protein 6.3 L (6.4-8.9) g/dL Albumin 3.7 (3.5-5.7) g/dL Globulin 2.6 (2.4-3.5) g/dL Albumin/Globulin Ratio 1.4 (1.1-2.2) Amylase 15 L (29-103) Units/L Lipase < 3 L (11-82) Units/L Urine Color (Yellow) Urine Clarity (Clear) Urine pH (5.0-8.0) pH Units Ur Specific Gore (1.010-1.025) Urine Protein (Neg-Trace) mg/dL Urine Glucose (UA) (Normal) mg/dL Urine Ketones (Negative) mg/dL Urine Blood (Negative) Urine Nitrite (Negative) Urine Bilirubin (Negative) Urine Urobilinogen (Normal) mg/dL Ur Leukocyte Esterase (Negative) Ur Culture Indicated? (NO) 08/03/17 08/03/17 Range/Units 18:56 19:24 WBC (4.3-11.1) K/mcL RBC (3.82-4.97) M/mcL Hgb (11.5-15.4) g/dL Hct (35.3-44.9) % MCV (83.0-100.0) fL MCH (28.0-33.3) pg MCHC (31.6-35.5) g/dL RDW (11.5-14.5) % Plt Count (140-400) K/mcL MPV (9.4-12.4) fL Immature Gran % (0-4) % Seg Neutrophils % % Lymphocytes % % Monocytes % % Eosinophils % % Basophils % % Neutrophils # (1.6-8.9) K/mcL Lymphocytes # (0.6-4.6) K/mcL Monocytes # (0.0-1.3) K/mcL Eosinophils # (0.0-0.6) K/mcL Basophils # (0.0-0.2) K/mcL PT (9.4-12.1) Seconds INR Sodium (136-145) mEq/L Potassium (3.5-5.1) mEq/L Chloride (98-107) mEq/L Carbon Dioxide (23-29) mEq/L BUN (6-20) mg/dL Creatinine (0.60-1.20) mg/dL Est GFR ( Amer) (> 60) Est GFR (Non-Af Amer) (> 60) BUN/Creatinine Ratio (6-26) Glucose (70-105) mg/dL Calculated Osmolality (280-300) Calcium (8.6-10.3) mg/dL Total Bilirubin (0.3-1.0) mg/dL AST (13-39) Units/L ALT (7-52) Units/L Alkaline Phosphatase (34-104) Units/L Troponin I (< 0.04) ng/mL B-Natriuretic Peptide 312 H (Less than 100) pg/mL Serum Total Protein (6.4-8.9) g/dL Albumin (3.5-5.7) g/dL Globulin (2.4-3.5) g/dL Albumin/Globulin Ratio (1.1-2.2) Amylase (29-103) Units/L Lipase (11-82) Units/L Urine Color Yellow (Yellow) Urine Clarity Clear (Clear) Urine pH 6.0 (5.0-8.0) pH Units Ur Specific Gore 1.020 (1.010-1.025) Urine Protein Trace (Neg-Trace) mg/dL Urine Glucose (UA) Normal (Normal) mg/dL Urine Ketones Negative (Negative) mg/dL Urine Blood Negative (Negative) Urine Nitrite Negative (Negative) Urine Bilirubin Negative (Negative) Urine Urobilinogen Normal (Normal) mg/dL Ur Leukocyte Esterase Negative (Negative) Ur Culture Indicated? NO (NO) Attestation Statement - Attestation Attestation: I examined this patient and my medical decision-making was reviewed with the Resident Physician. I agree with the documented findings, disposition and treatment plan as described except to the extent set forth below. 56 year old do presents to the ED with complaints of fluid retention and difficiulty in breathing. It appears she has new pleural effusion and chronic abdominal ascitse and woudl likley benefit form thoracocentesis and paracentesis. WE valente ladmit to medicine.
--- NOTE | 2017-08-03 20:35 | Emergency Department Note ---
Disposition Clinical Impression: Pleural effusion Ascitic fluid Qualifiers: Ascites type: other type Qualified Code(s): R18.8 - Other ascites Disposition: Admitted As Inpatient Condition: Good Referrals: Almas Ac DO [Primary Care Provider] - Forms: ED Satisfaction Letter General Adult HPI - General Chief complaint: ED Shortness of Breath/Dyspnea Stated complaint: "fluid retention", JESSIE Time Seen by Provider: 08/03/17 18:55 Source: patient Limitations: no limitations Nursing Notes Reviewed: Yes Vital Signs Reviewed: Yes - History of Present Illness HPI Narrative: Patient presents today for evaluation of shortness of breath and increased swelling. She states that been going on for approximately 1 week. She has a history of a hemangioma within the liver. She said that this is large and has been monitored every couple of years at [facility]. She states no history of hepatitis or alcohol abuse. No history of liver failure. She states that she was admitted in June of last year for an amputation of the leg and subsequently developed ascites fluid that required paracentesis. Patient has otherwise not required any paracentesis is not had any fluid buildup since then. She states that the swelling has gotten to the point that she has had some shortness of breath. Patient does not have abdominal pain or tenderness at this point. Pain Scale: 10 - Related Data Home Medications Medication Instructions Recorded Confirmed Sertraline [Zoloft] 100 mg PO DAILY 10/15/14 08/03/17 Omeprazole [PriLOSEC] 20 mg PO DAILY 06/19/16 08/03/17 Insulin Aspart Prot/Insuln Asp 80 unit SQ BID 08/03/17 08/03/17 [Novolog Mix 70-30 Vial] OxyCODONE/APAP 5/325 [Percocet 1 tab PO TID 08/03/17 08/03/17 5/325 MG] Allergies Allergy/AdvReac Type Severity Reaction Status Date / Time No Known Allergies Allergy Verified 08/03/17 21:31 Review of Systems: CONSTITUTIONAL: No weight loss, fever, chills, weakness or fatigue. HEENT: Eyes: No visual changes. Ears, Nose, Throat: No hearing loss, difficulty talking or unable to swallow. SKIN: No rash or itching. CARDIOVASCULAR: No chest pain, chest pressure or chest discomfort. No palpitations or edema. RESPIRATORY: Shortness of breath. GASTROINTESTINAL: Abdominal swelling No anorexia, nausea, vomiting or diarrhea. No abdominal pain or blood. GENITOURINARY: No burning on urination or hematuria. NEUROLOGICAL: No headache, dizziness, syncope, paralysis, ataxia, numbness or tingling in the extremities. No change in bowel or bladder control. MUSCULOSKELETAL: No muscle pain, back pain, joint pain or stiffness. Past Medical History - Past Medical History Medical history: Reports: diabetes, GERD, hyperlipidemia Surgical history: Reports: cholecystectomy, other Psychiatric history: Reports: anxiety, depression [employer]PER[employer] history: Reports: no [employer] SUPER[employer]OR history - Social History Smoking Status: Former smoker Smokeless Tobacco Status: No Alcohol use: Reports: none Drug use: Reports: none Physical Exam General: Well appearing, nontoxic, no acute distress Head: Normocephalic Atraumatic Eyes: PERRL, EOMI ENT: Airway patent, no stridor Neck: supple, no meningismus Chest: Rales to the bases bilaterally Cardiac: Regular rate and rhythm, no murmurs, rubs or gallops Abdomen: Distention with fluid wave and bedside ultrasound showing some ascites fluid soft, nontender, no guarding, rebound, or tenderness to percussion Musculoskeletal: Calves symmetric, nontender, no palpable cord Skin: No rash, normal skin tone Neuro: Alert and Oriented to person, place, and time; No focal deficit, CN 2-12 symmetric and intact - General Limitations: no limitations General appearance: alert Course - Reevaluation(s) Reevaluation #1: Patient will receive CT scan to further evaluate liver. Liver with hemangioma ascites fluid. Patient has pleural effusion which she has never had in the past. Patient be given Lasix and admitted for further workup. Patient resting in bed. Patient did have a nasal cannula placed on her by the nurse. Patient not in respiratory distress. - Consultations Consultation #1: Discussed with hospitalist. Patient accepted for admission. Vital Signs Temperature 98.2 F 08/03/17 16:55 Pulse Rate 95 08/03/17 16:55 Respiratory Rate 20 08/03/17 16:55 Blood Pressure 146/84 08/03/17 16:55 O2 Sat by Pulse Oximetry 92 08/03/17 16:55 Temperature 98.2 F 08/03/17 16:55 Pulse Rate 92 08/03/17 21:38 Respiratory Rate 20 08/03/17 21:38 Blood Pressure 134/62 08/03/17 21:38 O2 Sat by Pulse Oximetry 96 08/03/17 21:38 Oxygen Delivery Oxygen Delivery Nasal Cannula Medical Decision Making - Medical Records Medical records reviewed: Yes I reviewed the patient's medical records. - Lab Data Lab results reviewed: Yes I reviewed the patient's lab results. Result diagrams: 08/03/17 17:09 08/03/17 17:09 Lab Results 08/03/17 08/03/17 08/03/17 Range/Units 17:09 17:09 17:10 WBC 11.3 H (4.3-11.1) K/mcL RBC 4.97 (3.82-4.97) M/mcL Hgb 11.9 (11.5-15.4) g/dL Hct 38.9 (35.3-44.9) % MCV 78.3 L (83.0-100.0) fL MCH 23.9 L (28.0-33.3) pg MCHC 30.6 L (31.6-35.5) g/dL RDW 15.3 H (11.5-14.5) % Plt Count 298 (140-400) K/mcL MPV 10.1 (9.4-12.4) fL Immature Gran % 1.4 (0-4) % Seg Neutrophils % 69.7 % Lymphocytes % 20.8 % Monocytes % 6.4 % Eosinophils % 1.3 % Basophils % 0.4 % Neutrophils # 7.9 (1.6-8.9) K/mcL Lymphocytes # 2.4 (0.6-4.6) K/mcL Monocytes # 0.7 (0.0-1.3) K/mcL Eosinophils # 0.2 (0.0-0.6) K/mcL Basophils # 0.1 (0.0-0.2) K/mcL PT 14.6 H (9.4-12.1) Seconds INR 1.3 Sodium 141 (136-145) mEq/L Potassium 4.1 (3.5-5.1) mEq/L Chloride 107 (98-107) mEq/L Carbon Dioxide 25 (23-29) mEq/L BUN 21 H (6-20) mg/dL Creatinine 0.52 L (0.60-1.20) mg/dL Est GFR ( Amer) > 60 (> 60) Est GFR (Non-Af Amer) > 60 (> 60) BUN/Creatinine Ratio 40 H (6-26) Glucose 140 H (70-105) mg/dL Calculated Osmolality 297 (280-300) Calcium 9.0 (8.6-10.3) mg/dL Total Bilirubin 0.6 (0.3-1.0) mg/dL AST 8 L (13-39) Units/L ALT 7 (7-52) Units/L Alkaline Phosphatase 100 (34-104) Units/L Troponin I 0.03 (< 0.04) ng/mL B-Natriuretic Peptide (Less than 100) pg/mL Serum Total Protein 6.3 L (6.4-8.9) g/dL Albumin 3.7 (3.5-5.7) g/dL Globulin 2.6 (2.4-3.5) g/dL Albumin/Globulin Ratio 1.4 (1.1-2.2) Amylase 15 L (29-103) Units/L Lipase < 3 L (11-82) Units/L Urine Color (Yellow) Urine Clarity (Clear) Urine pH (5.0-8.0) pH Units Ur Specific [place] (1.010-1.025) Urine Protein (Neg-Trace) mg/dL Urine Glucose (UA) (Normal) mg/dL Urine Ketones (Negative) mg/dL Urine Blood (Negative) Urine Nitrite (Negative) Urine Bilirubin (Negative) Urine Urobilinogen (Normal) mg/dL Ur Leukocyte Esterase (Negative) Ur Culture Indicated? (NO) 08/03/17 08/03/17 Range/Units 18:56 19:24 WBC (4.3-11.1) K/mcL RBC (3.82-4.97) M/mcL Hgb (11.5-15.4) g/dL Hct (35.3-44.9) % MCV (83.0-100.0) fL MCH (28.0-33.3) pg MCHC (31.6-35.5) g/dL RDW (11.5-14.5) % Plt Count (140-400) K/mcL MPV (9.4-12.4) fL Immature Gran % (0-4) % Seg Neutrophils % % Lymphocytes % % Monocytes % % Eosinophils % % Basophils % % Neutrophils # (1.6-8.9) K/mcL Lymphocytes # (0.6-4.6) K/mcL Monocytes # (0.0-1.3) K/mcL Eosinophils # (0.0-0.6) K/mcL Basophils # (0.0-0.2) K/mcL PT (9.4-12.1) Seconds INR Sodium (136-145) mEq/L Potassium (3.5-5.1) mEq/L Chloride (98-107) mEq/L Carbon Dioxide (23-29) mEq/L BUN (6-20) mg/dL Creatinine (0.60-1.20) mg/dL Est GFR ( Amer) (> 60) Est GFR (Non-Af Amer) (> 60) BUN/Creatinine Ratio (6-26) Glucose (70-105) mg/dL Calculated Osmolality (280-300) Calcium (8.6-10.3) mg/dL Total Bilirubin (0.3-1.0) mg/dL AST (13-39) Units/L ALT (7-52) Units/L Alkaline Phosphatase (34-104) Units/L Troponin I (< 0.04) ng/mL B-Natriuretic Peptide 312 H (Less than 100) pg/mL Serum Total Protein (6.4-8.9) g/dL Albumin (3.5-5.7) g/dL Globulin (2.4-3.5) g/dL Albumin/Globulin Ratio (1.1-2.2) Amylase (29-103) Units/L Lipase (11-82) Units/L Urine Color Yellow (Yellow) Urine Clarity Clear (Clear) Urine pH 6.0 (5.0-8.0) pH Units Ur Specific [place] 1.020 (1.010-1.025) Urine Protein Trace (Neg-Trace) mg/dL Urine Glucose (UA) Normal (Normal) mg/dL Urine Ketones Negative (Negative) mg/dL Urine Blood Negative (Negative) Urine Nitrite Negative (Negative) Urine Bilirubin Negative (Negative) Urine Urobilinogen Normal (Normal) mg/dL Ur Leukocyte Esterase Negative (Negative) Ur Culture Indicated? NO (NO) - Radiology Data Radiology results reviewed: Yes I reviewed the patient's radiology results. - EKG Data EKG #1 EKG attestation: Yes I reviewed and interpreted this EKG. EKG results narrative: EKG shows sinus rhythm with ventricular rate of 96. SD interval 150. QRS 93. QTC was 02. No significant ST elevation or depression.
[2017-08-03] MEDS ORDERED: Furosemide 20 MG/2 ML VIAL IVP ONE (21:07)
[2017-08-03] MEDS ORDERED: *HR* OxyCODONE Immed Rel 5 MG TABLET PO ONE (21:15)
[2017-08-03] MEDS ORDERED: Acetaminophen 325 MG TABLET PO PRN (22:30)
[2017-08-03] MEDS ORDERED: Naloxone 0.4 MG/ML INJ IVP PRN (22:30)
[2017-08-03] MEDS ORDERED: Dextrose Gel 15 GM/37.5 ML TUBE PO PRN ×2 (22:33)
[2017-08-03] MEDS ORDERED: *HR* Dextrose 50 % in Water (Syg) 50 ML SYRINGE IVP PRN (22:33)
[2017-08-03] MEDS ORDERED: D5% in Water 1,000 ML IVC PRN (22:33)
--- NOTE | 2017-08-03 22:58 | Internal Med History&Physical ---
<AbbottTito - Last Filed: 08/03/17 23:11> Date of Encounter: 08/03/17 Time of Encounter: 22:00 Internal Medicine - H&P: HPI Chief complaint: SOB Admitted From: Long-term Nursing Facility Plans for Post Hospital Care: Home History of present illness: Ms. Anthony Cook is a 56 year old female PMHx microcytic anemia, C. 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 She informs that fluid accumulation has been ocurring for the last 6 months, but she is currently not on lasix. SOB and swelling has been worsening for the last week and she finally decided to go to ED. Patient reports history of hemangioma in the liver and that she is following up with [facility] since her discharge. She denied [place], vision changes, CP, palpitaitons, abdominal pain, cough, sputum production, f/c/n/v/diarrhea/constipation. Confirms no known allergies. She is compliant with medications. Denies history of liver failure, hepatitis, alcohol abuse. She had similar episode of SOB and swelling last year s/p right DKA 2/2 gangrene. No further acute complaints. Past Med Surg Social Fam HX - Past Medical History Medical history: diabetes, GERD, hyperlipidemia Psychiatric history: anxiety, depression - Past Surgical History Surgical History: cholecystectomy, other - Social History Smoking Status: Former smoker Smokeless Tobacco Status: No Alcohol use: none Drug use: none - Family History Mother Living Status: Hx Family Cardiac Disorders: Yes Hx Family Respiratory Disorders: No Hx Family Cancer: Yes Hx Family GI Disorders: No Hx Family Endocrine Disorder: No Hx Family Neuromuscular Disorders: No Hx Family Neurologic Disorders: No Hx Family HEENT Disorders: No Hx Family Autoimmune Disorders: No Father Living Status: Hx Family Endocrine Disorder: Yes Internal Medicine - H&P: Meds Sertraline [Zoloft] 100 mg PO DAILY 10/15/14 [History] Omeprazole [PriLOSEC] 20 mg PO DAILY 06/19/16 [History] Insulin Aspart Prot/Insuln Asp [Novolog Mix 70-30 Vial] 80 unit SQ BID 08/03/17 [History] OxyCODONE/APAP 5/325 [Percocet 5/325 MG] 1 tab PO TID 08/03/17 [History] 3 Allergy/AdvReac Type Severity Reaction Status Date / Time No Known Allergies Allergy Verified 08/03/17 21:31 All Systems PM: A 10-system review of systems was performed and is negative for pertinent findings except as documented above in the HPI. - Constitutional Constitutional: no chills, no fever(s), no night sweats - EENT Eyes: no change in vision, no discharge, no pain, no photophobia Ears: no ear discharge, no ear pain, no tinnitus Nose, mouth and throat: no dysphagia, no nasal discharge, no neck pain, no sore throat - Cardiovascular Cardiovascular ROS IM: no chest pain, no diaphoresis, no dyspnea, no lightheadedness, no palpitations, no syncope - Respiratory Respiratory: dyspnea, no cough, no wheezing, no excessive phlegm production - Gastrointestinal Gastrointestinal: no abdominal pain, no diarrhea, no hematemesis, no hematochezia, no melena, no nausea, no vomiting Additional comments: Abdominal distention - Genitourinary Genitourinary: no change in urinary stream, no dysuria, no flank pain, no hematuria - Musculoskeletal Musculoskeletal ROS IM: no numbness, no tingling - Integumentary Integumentary IM: no rash, no unusual bruising - Neurological Neurological ROS: no confusion, no convulsions, no focal weakness, no numbness, no tingling, no tremor(s) - Hematologic/Lymphatic Hematologic/Lymphatic: no easy bruising - Constitutional Vitals: Temp Pulse Resp BP Pulse Ox 98.2 F 92 20 134/62 96 08/03/17 16:55 08/03/17 21:38 08/03/17 21:38 08/03/17 21:38 08/03/17 21:38 General appearance: Present: A&O X 3, no acute distress, answers questions appropriately - Head Head exam: Present: atraumatic, normocephalic - Eye Eye exam: Present: normal appearance, conjuntiva pink, sclera anicteric - Neck Neck exam general surgery: Present: supple, trachea midline. Absent: lymphadenopathy - Respiratory Respiratory exam: Present: CTAB. Absent: accessory muscle use, rales, rhonchi, wheezes - Cardiovascular Cardiovascular exam: Present: RRR, +S1, +S2. Absent: diastolic murmur, gallop, rubs, systolic murmur - GI/Abdominal GI/Abdominal exam: Present: normal bowel sounds, soft, no peritoneal signs. Absent: distended, tenderness - Extremities Exam Extremities exam: Present: warm, radial pulses palpable and symmetrical. Absent : calf tenderness, cyanotic, pedal edema Additional comments: left upper extremity disfigurement. RIght BKA noted. No signs of infection. - Neurological Exam Neurological exam: Present: alert, oriented X3, no focal deficits, strengths equal and symetr throughout. Absent: pronater drift, facial droop, speech deficit - Skin Skin exam: Present: dry, intact Internal Med - H&P Results - Labs CBC & Chem 7: 08/03/17 17:09 08/03/17 17:09 Labs: Short CBC 08/03/17 Range/Units 17:09 WBC 11.3 H (4.3-11.1) K/mcL Hgb 11.9 (11.5-15.4) g/dL Hct 38.9 (35.3-44.9) % Plt Count 298 (140-400) K/mcL Neutrophils # 7.9 (1.6-8.9) K/mcL BMP 08/03/17 17:09 Sodium 141 Potassium 4.1 Chloride 107 Carbon Dioxide 25 BUN 21 H Creatinine 0.52 L Glucose 140 H Calcium 9.0 Cardiac Enzymes 08/03/17 Range/Units 17:09 Troponin I 0.03 (< 0.04) ng/mL Liver Function 08/03/17 Range/Units 17:09 Total Bilirubin 0.6 (0.3-1.0) mg/dL AST 8 L (13-39) Units/L ALT 7 (7-52) Units/L Alkaline Phosphatase 100 (34-104) Units/L Albumin 3.7 (3.5-5.7) g/dL Urine 08/03/17 Range/Units 19:24 Urine Color Yellow (Yellow) Urine Clarity Clear (Clear) Urine pH 6.0 (5.0-8.0) pH Units Ur Specific [place] 1.020 (1.010-1.025) Urine Protein Trace (Neg-Trace) mg/dL Urine Glucose (UA) Normal (Normal) mg/dL - Impressions ITS Impressions Chest X-Ray 08/03/17 16:58 IMPRESSION: Large right and small left pleural effusions. Right basilar opacities favored to reflect atelectasis although superimposed infectious airspace disease could be present in the appropriate clinical context. D/ / Arcadio Love / Arcadio Love Interpreting Provider: Arcadio Love Abdomen/Pelvis CT 08/03/17 19:15 IMPRESSION: 1. Moderate-sized right pleural with right lower lobe atelectasis. 2. Moderate amount of simple ascites in the abdomen and pelvis. 3. Indeterminate right hepatic lobe 15 cm mass with areas of fat and calcifications. Patient reports a history of a hemangioma although the CT findings are not definitive. Unless the patient has a definitive history or previous workup of the lesion, nonemergent MRI could be used to fully characterize. Malignant etiologies are not excluded. 4. No other acute abnormality in the abdomen or pelvis. D/ / 08/03/2017 20:40:49 Fred Matthews MD / shankar Interpreting Provider: Fred Matthews MD - Assessment and plan (1) Ascites Current Visit: Yes Status: Acute Assessment and plan: Patient with worsening SOB for the last week and fluid overload. CXR = BL pleural effusions CT abd/ Pelvis = moderate-sized right pleura, moderate amount of ascites, right hepatic lobe with 15cm mass with fat/calcifications. Last echo 07/2016 EF 55%, mild MR/TR, borderline PHTN, no valve vegetation, normal wall segment abnormalities. BMP = 312, repeat echocardiogram IR consulted for diagnostic paracentesis, thoracentesis. Recommendations appreciated. Keep patient NPO after midnight. Continue lasix 40 mg daily. Qualifiers: Ascites type: other type Qualified Code(s): R18.8 - Other ascites (2) Dyspnea Current Visit: No Status: Acute Assessment and plan: likely secondary to fluid overload. treat per above. Qualifiers: Dyspnea type: unspecified Qualified Code(s): R06.00 - Dyspnea, unspecified (3) Pleural effusion Current Visit: Yes Status: Acute Assessment and plan: IR consulted for possible diagnostic thoracentesis tomorrow. (4) History of Clostridium difficile colitis Current Visit: Yes Status: Acute Assessment and plan: contact precautions (5) Hemangioma of liver Current Visit: No Status: Chronic Assessment and plan: Patient states that she has history of hemangioma of liver and following up with [facility]. AFT pending. No further acute intervention at this time. Consider MRI if AFP abnormal (6) Insulin dependent diabetes mellitus Current Visit: No Status: Chronic Assessment and plan: NPO after midnight Low dose SSI (7) Recent surgical procedure on lower extremity Current Visit: No Status: Acute Assessment and plan: history of Right BKA in 06/2016. No signs of infection or bleed. (8) DVT prophylaxis Current Visit: Yes Status: Acute Assessment and plan: subq Hep - Time Spent With Patient Total time spent is greater than 50% in coordination of care (as documented) at patient's floor/unit and/or counseling patient: Greater than 35 minutes <Tiffany Han - Last Filed: 08/04/17 03:12> Date of Encounter: 08/04/17 Internal Medicine - H&P: HPI History of present illness: Ms. Atnhony Cook is a 56 year old female All Systems PM: A 10-system review of systems was performed and is negative for pertinent findings except as documented above in the HPI. - Constitutional Vitals: Temp Pulse Resp BP Pulse Ox 97.6 F 98 18 151/71 93 08/03/17 22:52 08/03/17 22:52 08/03/17 22:52 08/03/17 22:52 08/03/17 22:52 Internal Med - H&P Results - Labs CBC & Chem 7: 08/03/17 17:09 08/03/17 17:09 - Attending Attestation I have seen and examined this patient independently. I have discussed with resident physician Dr. Abbott regarding the management plan. Agree with the documentation. Patient presented with shortness of breath and pleural infusion and ascites. Etiology is undetermined. Patient feels better after Lasix. Need to rule out CHF. Will order echo and continue Lasix. Consult IR for diagnostic and therapeutic paracentesis and thoracentesis. Patient was found a tumor on CT Abd , she reports history of hemangioma. Her CTA of lung on 06/18/[address] on 06/27/16 also showed similar lesion on liver. Will hold further testing at this point and let patient follow-up as outpatient with her [facility] physician. - Assessment and plan (1) Dyspnea Current Visit: No Status: Acute Qualifiers: Dyspnea type: unspecified Qualified Code(s): R06.00 - Dyspnea, unspecified (2) Hemangioma of liver Current Visit: No Status: Chronic (3) Insulin dependent diabetes mellitus Current Visit: No Status: Chronic (4) Ascites Current Visit: Yes Status: Acute Qualifiers: Ascites type: other type Qualified Code(s): R18.8 - Other ascites (5) Recent surgical procedure on lower extremity Current Visit: No Status: Acute (6) Pleural effusion Current Visit: Yes Status: Acute (7) History of Clostridium difficile colitis Current Visit: Yes Status: Acute (8) DVT prophylaxis Current Visit: Yes Status: Acute - Time Spent With Patient Total time spent is greater than 50% in coordination of care (as documented) at patient's floor/unit and/or counseling patient:
[2017-08-04] MEDS ORDERED: *HR* Heparin 5,000 UNIT/ML VIAL SQ SCH (06:00)
[2017-08-04 06:23] LABS: Basophils % 0.3 %; Eosinophils # 0.2 K/mcL (0.0-0.6); Eosinophils % 1.7 %; Hematocrit 36.5 % (35.3-44.9); Hemoglobin 11.1 g/dL (11.5-15.4); Lymphocytes # 2.5 K/mcL (0.6-4.6); Lymphocytes % 24.5 %; Mean Corpuscular HGB Conc 30.4 g/dL (31.6-35.5); Mean Corpuscular Hemoglobin 23.6 pg (28.0-33.3); Mean Corpuscular Volume 77.5 fL (83.0-100.0); Mean Platelet Volume 10.6 fL (9.4-12.4); Monocytes # 0.8 K/mcL (0.0-1.3); Monocytes % 7.5 %; Neutrophils # 6.7 K/mcL (1.6-8.9); Platelet Count 297 K/mcL (140-400); Red Blood Count 4.71 M/mcL (3.82-4.97); Red Cell Distribution Width 15.1 % (11.5-14.5)
[2017-08-04 06:35] LABS: Lactate Dehydrogenase 132 Units/L (140-271)
[2017-08-04 06:37] LABS: Alanine Aminotransferase 7 Units/L (7-52); Albumin 3.8 g/dL (3.5-5.7); Albumin/Globulin Ratio 1.6 (1.1-2.2); Alkaline Phosphatase 98 Units/L (34-104); Aspartate Amino Transferase 9 Units/L (13-39); BUN/Creatinine Ratio 49 (6-26); Bilirubin,Total 0.7 mg/dL (0.3-1.0); Blood Urea Nitrogen 18 mg/dL (6-20); Carbon Dioxide 27 mEq/L (23-29); Chloride 105 mEq/L (98-107); Globulin 2.4 g/dL (2.4-3.5); Glucose 79 mg/dL (70-105); Osmolality,Calculated 289 (280-300); Potassium 3.6 mEq/L (3.5-5.1); Sodium 139 mEq/L (136-145); Total Protein 6.2 g/dL (6.4-8.9); eGFR For African Americans > 60 (> 60); eGFR For Non-African Americans > 60 (> 60)
[2017-08-04] MEDS ORDERED: *HR* OxyCODONE/APAP 5/325 TABLET PO SCH (09:00)
[2017-08-04] MEDS ORDERED: Furosemide 40 MG TABLET PO SCH (09:00)
[2017-08-04] MEDS ORDERED: Insulin DETEMIR 100 UNIT/ML X5UNITS SQ SCH (09:00)
--- NOTE | 2017-08-04 09:15 | Internal Med Progress Note ---
<Sergei Garcia - Last Filed: 08/04/17 13:23> Date of Encounter: 08/04/17 Time of Encounter: 10:20 - Assessment and plan (1) Ascites Current Visit: Yes Status: Acute Assessment and plan: Patient with worsening SOB for the last week and fluid overload. CXR = BL pleural effusions CT abd/ Pelvis = moderate-sized right pleura, moderate amount of ascites, right hepatic lobe with 15cm mass with fat/calcifications. Last echo 07/2016 EF 55%, mild MR/TR, borderline PHTN, no valve vegetation, normal wall segment abnormalities. BNP = 312, repeat echocardiogram We will attempt thoracentesis and paracentesis as permitted by patient Increase lasix to 20mg IVP BID Qualifiers: Ascites type: other type Qualified Code(s): R18.8 - Other ascites (2) Dyspnea Current Visit: Yes Status: Acute Assessment and plan: likely secondary to fluid overload. treat per above. Qualifiers: Dyspnea type: unspecified Qualified Code(s): R06.00 - Dyspnea, unspecified (3) Hemangioma of liver Current Visit: No Status: Chronic Assessment and plan: Patient states that she has history of hemangioma of liver and following up with [facility]. AFT pending. No further acute intervention at this time. Consider MRI if AFP abnormal (4) Insulin dependent diabetes mellitus Current Visit: No Status: Chronic Assessment and plan: Low dose SSI (5) Pleural effusion Current Visit: Yes Status: Acute Assessment and plan: B/L Pleural effusions on CXR, consitent with clinical findings We will consider thoracentesis today Continue aggressive diuresis (6) History of Clostridium difficile colitis Current Visit: Yes Status: Acute Assessment and plan: contact precautions (7) DVT prophylaxis Current Visit: Yes Status: Acute Assessment and plan: subq Hep - Time Spent With Patient Total time spent is greater than 50% in coordination of care (as documented) at patient's floor/unit and/or counseling patient: - Subjective Interval history: The patient seen and examined at bedside. She has no acute complaints this morning, says that she is feeling significantly better than she was previously. - Constitutional Vitals: Temp Pulse Resp BP Pulse Ox 97.9 F 86 18 130/70 96 08/04/17 07:19 08/04/17 07:19 08/04/17 07:19 08/04/17 07:19 08/04/17 07:19 General appearance: Present: A&O X 3, no acute distress, answers questions appropriately Exam: Gen.: Vitals noted. No acute distress. HEENT: Normocephalic, atraumatic Neck: Supple. No adenopathy. Cardiac: RRR, no murmur, +S1/S2 Pulmonary: Diminished b/l with rales Abdomen: soft, nontender, BS noted, no guarding MSK: ROM intact, no joint swelling noted Extremities: L. upper hand first and 5th phalanges present. R leg s/p BKA, L LE 2+ edema, nontender calf, darkened skin suggestive of chronic vascular disease. Neuro: A&Ox3, moves all extremities, no focal deficits Psych: Appropriate mood and behavior Internal Medicine: Result - Labs CBC & Chem 7: 08/04/17 05:27 08/04/17 05:27 Labs: Short CBC 08/04/17 Range/Units 05:27 WBC 10.3 (4.3-11.1) K/mcL Hgb 11.1 L (11.5-15.4) g/dL Hct 36.5 (35.3-44.9) % Plt Count 297 (140-400) K/mcL Neutrophils # 6.7 (1.6-8.9) K/mcL BMP 08/04/17 05:27 Sodium 139 Potassium 3.6 Chloride 105 Carbon Dioxide 27 BUN 18 Creatinine 0.37 L Glucose 79 Calcium 9.0 Liver Function 08/04/17 Range/Units 05:27 Total Bilirubin 0.7 (0.3-1.0) mg/dL AST 9 L (13-39) Units/L ALT 7 (7-52) Units/L Alkaline Phosphatase 98 (34-104) Units/L Albumin 3.8 (3.5-5.7) g/dL - ABG Interpretation ABG results: PT/INR, D-dimer PT 14.6 Seconds (9.4-12.1) H 08/03/17 17:10 Consult Discharge Plan - Plan Referrals: Almas Ac DO [Primary Care Provider] - <Alphonso Manuel H - Last Filed: 08/04/17 13:41> Date of Encounter: 08/04/17 - Assessment and plan (1) Dyspnea Current Visit: Yes Status: Acute Qualifiers: Dyspnea type: unspecified Qualified Code(s): R06.00 - Dyspnea, unspecified (2) Hemangioma of liver Current Visit: No Status: Chronic (3) Insulin dependent diabetes mellitus Current Visit: No Status: Chronic (4) Ascites Current Visit: Yes Status: Acute Qualifiers: Ascites type: other type Qualified Code(s): R18.8 - Other ascites (5) Pleural effusion Current Visit: Yes Status: Acute (6) History of Clostridium difficile colitis Current Visit: Yes Status: Acute (7) DVT prophylaxis Current Visit: Yes Status: Acute - Time Spent With Patient Total time spent is greater than 50% in coordination of care (as documented) at patient's floor/unit and/or counseling patient: - Constitutional Vitals: Temp Pulse Resp BP Pulse Ox 97.6 F 91 18 138/71 93 08/04/17 10:40 08/04/17 10:40 08/04/17 10:40 08/04/17 10:40 08/04/17 11:29 Internal Medicine: Result - Labs CBC & Chem 7: 08/04/17 05:27 08/04/17 05:27 Labs: Short CBC 08/04/17 Range/Units 05:27 WBC 10.3 (4.3-11.1) K/mcL Hgb 11.1 L (11.5-15.4) g/dL Hct 36.5 (35.3-44.9) % Plt Count 297 (140-400) K/mcL Neutrophils # 6.7 (1.6-8.9) K/mcL BMP 08/04/17 05:27 Sodium 139 Potassium 3.6 Chloride 105 Carbon Dioxide 27 BUN 18 Creatinine 0.37 L Glucose 79 Calcium 9.0 Liver Function 08/04/17 Range/Units 05:27 Total Bilirubin 0.7 (0.3-1.0) mg/dL AST 9 L (13-39) Units/L ALT 7 (7-52) Units/L Alkaline Phosphatase 98 (34-104) Units/L Albumin 3.8 (3.5-5.7) g/dL - ABG Interpretation ABG results: PT/INR, D-dimer PT 14.6 Seconds (9.4-12.1) H 08/03/17 17:10 - Attending Attestation Moderate to large sized right pleural effusion causing respiratory distress along with ascites Consider thoracenteses, not able to perform paracenteses due to risk of perforation Continue Lasix IV I examined this patient and my medical decision-making was reviewed with the Resident Physician. I agree with the documented findings, disposition and treatment plan as described except to the extent set forth below.
[2017-08-04 09:26] LABS: % Iron Saturation 6 % (15-50); Ferritin 118 ng/ml (10-120); Iron 19 mcg/dL (50-170); Transferrin 215 mg/dL (203-362)
[2017-08-04] MEDS: Insulin LISPRO 300 UNITS/3 ML VIAL SQ SCH ×4 (10:22→22:15)
[2017-08-04] MEDS: Furosemide 20 MG/2 ML VIAL IVP SCH ×2 (10:24→16:52)
[2017-08-04] MEDS: Ondansetron 4 MG/2 ML VIAL IVP PRN (11:17)
--- NOTE | 2017-08-04 16:04 | Procedure Note ---
Date of procedure: 08/04/17 Pre-op diagnosis: Pleural effusion Post-op diagnosis: same Procedure: Date: 08/04/17 Time: 1520 Indictation: Right pleural effusion with dyspnea Piece Worker: Sergei Garcia DO Labeler: Young Bryan DO Timeout was completed verifying correct patient, procedure, site, positioning, as special equipment if applicable. The patient's right side was prepped and draped in a sterile manner after the appropriate infiltration level was confirmed by ultrasound and marked. 1% lidocaine was used to NSI and the surrounding skin. A finder needle was then used to locate the fluid and sanguinous yellow fluid was obtained. An 11 blade scalpel was used to make the incision. The thoracentesis catheter was initially unable to be threaded. The catheter was removed, and a new kit was opened. The area was examined again under ultrasound, and was again prepped with sterile technique. The thoracentesis catheter was again inserted and advanced without difficulty into the pleural space. The patient had approximately 1300mL serous appearing fluid removed. The supervising resident, Young Bryan, was present for the entire procedure. A postprocedure chest x-ray was ordered. Estimated blood loss: Minimal. The patient tolerated the procedure well and there were no consultations. Anesthesia: local Surgeon: Sergei Garcia Was there an assistant corporation counsel present: Yes Labeler: Young Bryan Estimated blood loss (cc): 2 Specimen: Pleural fluid Pathology: other (Sent for cytology, culture and gram stain, cell count, and fluid analysis) Condition: stable Disposition: floor
[2017-08-04] MEDS: *HR* OxyCODONE/APAP 5/325 TABLET PO PRN ×2 (16:52→22:13)
[2017-08-04 17:41] LABS: RBC,Pleural Fluid 0.017 M/mcL
[2017-08-04 17:48] LABS: Lactate Dehydrogenase 134 Units/L (140-271); Total Protein 6.6 g/dL (6.4-8.9)
[2017-08-04 17:54] LABS: Glucose,Pleural Fluid 178 mg/dL (No Ref Range); Total Protein,Pleural Fluid 3.8 g/dL (No Ref Range)
[2017-08-04 18:04] LABS: Appearance of Pleural Fl Cloudy (Clear)
[2017-08-04 23:13] LABS: Lymphocytes,Pleural Fluid 38 %; Monocytes,Pleural Fluid 5 %
[2017-08-05 06:31] LABS: Basophils % 0.3 %; Eosinophils # 0.2 K/mcL (0.0-0.6); Eosinophils % 1.8 %; Hematocrit 35.2 % (35.3-44.9); Hemoglobin 10.9 g/dL (11.5-15.4); Immature Granulocytes % 0.9 % (0-4); Lymphocytes # 2.3 K/mcL (0.6-4.6); Mean Corpuscular Hemoglobin 24.3 pg (28.0-33.3); Mean Corpuscular Volume 78.4 fL (83.0-100.0); Mean Platelet Volume 10.2 fL (9.4-12.4); Monocytes # 0.6 K/mcL (0.0-1.3); Monocytes % 6.5 %; Neutrophils # 6.4 K/mcL (1.6-8.9); Platelet Count 256 K/mcL (140-400); Red Blood Count 4.49 M/mcL (3.82-4.97); Red Cell Distribution Width 14.9 % (11.5-14.5); Segmented Neutrophils % 66.5 %
[2017-08-05 06:50] LABS: Alanine Aminotransferase 7 Units/L (7-52); Albumin 3.6 g/dL (3.5-5.7); Albumin/Globulin Ratio 1.4 (1.1-2.2); Alkaline Phosphatase 101 Units/L (34-104); Aspartate Amino Transferase 7 Units/L (13-39); BUN/Creatinine Ratio 40 (6-26); Blood Urea Nitrogen 17 mg/dL (6-20); Calcium 8.6 mg/dL (8.6-10.3); Carbon Dioxide 29 mEq/L (23-29); Chloride 100 mEq/L (98-107); Globulin 2.6 g/dL (2.4-3.5); Glucose 309 mg/dL (70-105); Osmolality,Calculated 297 (280-300); Potassium 4.1 mEq/L (3.5-5.1); Sodium 137 mEq/L (136-145); Total Protein 6.2 g/dL (6.4-8.9); eGFR For African Americans > 60 (> 60); eGFR For Non-African Americans > 60 (> 60)
--- NOTE | 2017-08-05 08:19 | Electrocardiograph Report ---
[address] [address] Test Date: 2017-08-03 Pat Name: Maggie Cook Department: 102 Room: 2N3 Gender: F [employer] Tender: : 1960 Requested By: Pamela See Order Number: [id number] Reading MD: Jam Gomez Measurements Intervals [place] Rate: 96 P: 44 [place]: 150 QRS: 113 QRSD: 93 T: 12 QT: 349 QTc: 402 Interpretive Statements SINUS RHYTHM Electronically Signed On 08-05-2017 8:17:46 EDT by Jam Gomez
[2017-08-05] MEDS: Furosemide 20 MG/2 ML VIAL IVP SCH ×2 (08:58→17:05)
[2017-08-05] MEDS: Insulin LISPRO 300 UNITS/3 ML VIAL SQ SCH ×4 (08:58→20:41)
[2017-08-05] MEDS: *HR* OxyCODONE/APAP 5/325 TABLET PO PRN ×2 (09:01→20:47)
--- NOTE | 2017-08-05 10:06 | Discharge Summary ---
<Sergei Garcia - Last Filed: 08/06/17 12:53> - NOTES TO OUTPATIENT PROVIDER Notes to Outpatient Provider: The patient was admitted with fluid overload in the setting of diastolic CHF. She demonstrated fluid retention in her abdominal cavity as well as b/l pleural effusions. She did undergo thoracentesis, at which time 1.3L serous appearing fluid was drained and sent for analysis, and it showed exudative effusion. CT showed substantial pneumonia burden, and there was concern for mass. Gave patient option to stay and have further workup, but she would rather follow-up outpatient with repeat CT in 4-6wks. Several tests are not yet resulted including AFBs, cytology, TTE. May wish to request records to get these results. Orders not resulted at time of discharge: Pending orders 08/04/17 15:45 Cytology [PTH] Routine 08/04/17 16:40 Culture,Body Fluid [RM] Routine Date of Encounter: 08/06/17 Time of Encounter: 08:25 - Discharge Diagnosis (1) Congestive heart failure Priority: Primary Status: Acute Assessment and Plan: Acute on chronic diastolic congestive heart failure The patient demonstrates fluid overload on clinical exam There is evidence of ascites and pleural effusions, likely related to combined CHF and Liver disease She underwent successful thoracentesis to remove fluid, however she will need diuresis at time of discharge We will send out on daily lasix, fluid restriction Follow-up with PCP Qualifiers: Heart failure type: diastolic Heart failure chronicity: acute on chronic Qualified Code(s): I50.33 - Acute on chronic diastolic (congestive) heart failure (2) Pleural effusion Priority: Secondary Status: Acute Assessment and Plan: B/L Pleural effusions on CXR, consistent with clinical findings Underwent Right thoracentesis yesterday, no complications, removed 1.3L Fluid analysis demonstrates exudative effusion with [id number] cells with 12 neutrophils Gram stain + Culture pending. We will add AFB culture We will check CT Chest for possible mass (3) Dyspnea Priority: Secondary Status: Acute Assessment and Plan: likely secondary to fluid overload + Pneumonia . treat per above. Qualifiers: Dyspnea type: unspecified Qualified Code(s): R06.00 - Dyspnea, unspecified (4) Ascites Priority: Secondary Status: Acute Assessment and Plan: Patient with worsening SOB for the last week and fluid overload. CXR = BL pleural effusions CT abd/ Pelvis = moderate-sized right pleura, moderate amount of ascites, right hepatic lobe with 15cm mass with fat/calcifications. Last echo 07/2016 EF 55%, mild MR/TR, borderline PHTN, no valve vegetation, normal wall segment abnormalities. We will attempt thoracentesis and paracentesis as permitted by patient Increase lasix to 20mg IVP BID Update 08/06 Abdomen remains taught, however this is standard for the patient She will required continued diuresis, however she does not currently have sufficient fluid for paracentesis Qualifiers: Ascites type: other type Qualified Code(s): R18.8 - Other ascites (5) Hemangioma of liver Priority: Secondary Status: Chronic Assessment and Plan: Patient states that she has history of hemangioma of liver and following up with [facility]. (6) Insulin dependent diabetes mellitus Priority: Secondary Status: Chronic Assessment and Plan: Resume home regimen (7) Pneumonia Priority: Secondary Status: Acute Assessment and Plan: Multifocal right pneumonia demonstrated on CT Chest Blood and sputum cultures pending Gave azithromycin and Rocephin I will discharge the patient with one additional dose of Azithromycin for 3 days total, and 7 days of Cefdinir She will require 4-6wk follow-up CT, may require bronchoscopy with biopsy Qualifiers: Pneumonia type: due to unspecified organism Laterality: right Lung location: lower lobe of lung Qualified Code(s): J18.1 - Lobar pneumonia, unspecified organism Hospital course: Ms. Anthony Cook is a 56 year old female with history of anemia, c. diff, IDDM2 and recent R. BKA who presented to the ED with SOB and abdominal swelling for the past week. She says that she has had fluid accumulation for several months but it seems to be getting worse. She does not take any Lasix at home. Chest x -ray did demonstrate bilateral pleural effusions, and CT of the abdomen demonstrated ascites. She was admitted and received right-sided thoracentesis which showed exudative effusion. She did receive a CT of her chest which demonstrated a substantial right-sided pneumonia, but which was also suspicious for mass or consolidation. We offered for the patient to have pulmonary consult for bronchoscopy, and she would prefer to follow up as outpatient. For more detailed hospital course and discharge plan, please refer to individual assessments. Discharge discussed with: patient, nurse - Time Spent with Patient Total time spent providing and/or coordinating discharge services: Greater than 30 minutes - Discharge Medications Prescriptions: amLODIPine [Norvasc] 5 mg PO DAILY #30 tablet Azithromycin 250 mg PO ONCE #2 tablet Cefdinir [Omnicef] 300 mg PO BID 7 Days #14 capsule Ferrous Sulfate 325 mg PO Q2D@0800 #30 tablet Furosemide [Lasix] 10 mg PO DAILY #30 tablet Home Medications: Sertraline [Zoloft] 100 mg PO DAILY 10/15/14 [History] Omeprazole [PriLOSEC] 20 mg PO DAILY 06/19/16 [History] Insulin Aspart Prot/Insuln Asp [Novolog Mix 70-30 Vial] 80 unit SQ BID 08/03/17 [History] OxyCODONE/APAP 5/325 [Percocet 5/325 MG] 1 tab PO TID 08/03/17 [History] Azithromycin 250 mg PO ONCE #2 tablet 08/06/17 [Rx] Cefdinir [Omnicef] 300 mg PO BID 7 Days #14 capsule 08/06/17 [Rx] Ferrous Sulfate 325 mg PO Q2D@0800 #30 tablet 08/06/17 [Rx] Furosemide [Lasix] 10 mg PO DAILY #30 tablet 08/06/17 [Rx] amLODIPine [Norvasc] 5 mg PO DAILY #30 tablet 08/06/17 [Rx] Allergies/Adverse Reactions: 3 Allergy/AdvReac Type Severity Reaction Status Date / Time No Known Allergies Allergy Verified 08/03/17 21:31 Date of admission: 08/04/17 03:12 Primary care physician: Almas Ac Discharging clinician: Sergei Garcia Anticipated date of discharge: 08/05/17 - Constitutional Vitals: Temp Pulse Resp BP Pulse Ox 97.6 F 86 16 150/75 97 08/05/17 07:13 08/05/17 07:13 08/05/17 07:13 08/05/17 07:13 08/05/17 07:13 General appearance: Present: A&O X 3, no acute distress, answers questions appropriately Exam: Gen: Vitals noted. No acute distress. HEENT: Normocephalic, atraumatic Neck: Supple. No adenopathy. Cardiac: RRR, no murmur, +S1/S2 Pulmonary: Diminished b/l with rales, R>L Abdomen: soft, nontender, BS noted, no guarding MSK: ROM intact, no joint swelling noted Extremities: L. upper hand first and 5th phalanges present. R leg s/p BKA, L LE 2+ edema, nontender calf, darkened skin suggestive of chronic vascular disease. Neuro: A&Ox3, moves all extremities, no focal deficits Psych: Appropriate mood and behavior - Patient Status Disposition: Home, Self-Care Condition: Fair Functional capacity at discharge: independent ambulation Overall status at discharge: patient is back to baseline - Discharge Instructions Follow Up With: Almas Ac DO [Primary Care Provider] - Additional Instructions: Follow-up with primary care at scheduled appointment on Monday Will require follow-up Chest CT in 4-6 weeks as outpatient May benefit from outpatient bronchoscopy for biopsy if no improvement Maybe labs/tests have not yet been results. You should call [facility] in 1-2 weeks and ask records to be sent to PCP who is out of network. Continue antibiotics Azithromycin and Cefdinir as directed Continue to take 20mg Lasix PO for shortness of breath and swelling, call PCP if you're concerned about dosing questions. Return to the ED for recurrent symptoms, high fever, difficulty breathing, or chest pains. - Diet and Activity Activity: increase activity as tolerated Diet: diabetic diet, low salt diet - VTE Documentation of Mechanical Device: Intermittent pneumatic compression device <Alphonso Manuel H - Last Filed: 08/06/17 14:16> Orders not resulted at time of discharge: Pending orders 08/04/17 15:45 Cytology [PTH] Routine 08/04/17 16:40 Culture,Body Fluid [RM] Routine 08/05/17 10:12 AFB Culture, Body Fluid [TB] Stat 08/05/17 13:06 AFB Culture, Respiratory [TB] Routine Culture,Sputum with Gram Stain [RM] Routine QuantiFERON-TB Gold In-Tube Routine 08/05/17 16:16 Culture,Blood [BC] Stat 08/06/17 03:18 Procalcitonin AM 0400 Date of Encounter: 08/06/17 - Discharge Diagnosis (1) Dyspnea Status: Acute Qualifiers: Dyspnea type: unspecified Qualified Code(s): R06.00 - Dyspnea, unspecified (2) Hemangioma of liver Status: Chronic (3) Insulin dependent diabetes mellitus Status: Chronic (4) Ascites Status: Acute Qualifiers: Ascites type: other type Qualified Code(s): R18.8 - Other ascites (5) Pleural effusion Status: Acute (6) Congestive heart failure Status: Acute Qualifiers: Heart failure type: diastolic Heart failure chronicity: acute on chronic Qualified Code(s): I50.33 - Acute on chronic diastolic (congestive) heart failure (7) Pneumonia Status: Acute Qualifiers: Pneumonia type: due to unspecified organism Laterality: right Lung location: lower lobe of lung Qualified Code(s): J18.1 - Lobar pneumonia, unspecified organism Hospital course: Ms. Anthony Cook is a 56 year old female - Time Spent with Patient Total time spent providing and/or coordinating discharge services: Date of admission: 08/04/17 03:12 Primary care physician: Almas Ac Consults: 08/05/17 16:35 Consult to Pulmonology [CONS] Routine Consulting Provider: [facility] Reason for Consult: R. Pleural effusion, concern for mass Call Completed: No - Constitutional Vitals: Temp Pulse Resp BP Pulse Ox 97.6 F 78 16 130/77 97 08/06/17 07:00 08/06/17 07:00 08/06/17 07:00 08/06/17 07:00 08/06/17 07:00 - Attending Attestation Moderate to large sized right pleural effusion possibly related to Community acquired pneumonia, consider possible neoplastic etiology if opacities did not improve within the next 4-6 weeks Thoracenteses performed on 08/04/17 showed 4265 cells LDH was 84, will add serum LDH to compare cytology pending Improved on Ceftriazone and azithromycin, continue cefdinir and one more dose of azithromycin as outpatient Not able to perform paracenteses due to risk of perforation Continue Lasix 20 mg daily Correction, resume iron once infection is controlled Time spent 40 minutes Follow-up with pulmonary services within the next 7 days to consider bronchoscopy at some point versus CT scan The patient was given the option to stay another day but she prefers to go home due to a long holiday. Risks explained CT chest showed: 1. Multifocal ground-glass and masslike consolidative opacities throughout the right lung most likely represent multifocal pneumonia. However, intrapulmonary N/C is not excluded. Suggest clinical correlation, consider formal pulmonary consultation and possible bronchoscopy and biopsy to further evaluate the right lung opacities. 2. Bilateral pleural effusions with dependent consolidative opacity within bilateral lower lobes, likely passive atelectasis. 3. Stable borderline enlarged mediastinal lymphadenopathy is unchanged from multiple prior studies, and likely benign given its stability. 4. Stable large heterogeneous mass within the right hepatic lobe, similar in comparison with prior studies, possibly a hemangioma. However, further evaluation of this abnormality as advised on the study of 08/03/2017, is recommended. 5. Mild amount of upper abdominal ascites. I examined this patient and my medical decision-making was reviewed with the Resident Physician. I agree with the documented findings, disposition and treatment plan as described except to the extent set forth below.
[2017-08-05] MEDS: amLODIPine 5 MG TABLET PO SCH (12:49)
[2017-08-05] MEDS: Ondansetron 4 MG/2 ML VIAL IVP PRN ×2 (12:50→20:41)
[2017-08-05] MEDS ORDERED: cefTRIAXone 1,000 MG in 0.9 % Sodium Chloride Mini Bag 100 ML IVPB SCH (14:00)
[2017-08-05] MEDS ORDERED: Azithromycin 500 MG in D5% in Water 250 ML IVPB SCH (14:00)
--- NOTE | 2017-08-05 14:24 | Internal Med Progress Note ---
<Sergei Garcia - Last Filed: 08/05/17 14:20> Date of Encounter: 08/05/17 Time of Encounter: 09:15 - Assessment and plan (1) Congestive heart failure Current Visit: Yes Status: Acute Assessment and plan: Acute on chronic diastolic congestive heart failure The patient demonstrates fluid overload on clinical exam There is evidence of ascites and pleural effusions, likely related to combined CHF and Liver disease She underwent successful thoracentesis to remove fluid, however she will need diuresis at time of discharge Daily lasix at time of discharge Qualifiers: Heart failure type: diastolic Heart failure chronicity: acute on chronic Qualified Code(s): I50.33 - Acute on chronic diastolic (congestive) heart failure (2) Pleural effusion Current Visit: Yes Status: Acute Assessment and plan: B/L Pleural effusions on CXR, consistent with clinical findings, Secondary to CHf vs. Parapneumonic Vs. Malignancy Underwent Right thoracentesis yesterday, no complications, removed 1.3L Fluid analysis demonstrates exudative effusion with [id number] cells with 12 neutrophils Gram stain + Culture pending. We will add AFB culture We will check CT Chest for possible mass Update 08/05 Pleural fluid analysis demonstrates exudative fluid Initial culture gram stain is negative for bacteria at 24 hr AFB smear of pleural fluid and Sputum AFB pending (3) Dyspnea Current Visit: Yes Status: Acute Assessment and plan: likely secondary to fluid overload vs pneumonia . treat per above. Qualifiers: Dyspnea type: unspecified Qualified Code(s): R06.00 - Dyspnea, unspecified (4) Ascites Current Visit: Yes Status: Acute Assessment and plan: Patient with worsening SOB for the last week and fluid overload. CXR = BL pleural effusions CT abd/ Pelvis = moderate-sized right pleura, moderate amount of ascites, right hepatic lobe with 15cm mass with fat/calcifications. Last echo 07/2016 EF 55%, mild MR/TR, borderline PHTN, no valve vegetation, normal wall segment abnormalities. We will attempt thoracentesis and paracentesis as permitted by patient Increase lasix to 20mg IVP BID Update 08/05 Abdomen remains taught, however this is standard for the patient She will required continued diuresis, however she does not currently have sufficient fluid for paracentesis Qualifiers: Ascites type: other type Qualified Code(s): R18.8 - Other ascites (5) Hemangioma of liver Current Visit: No Status: Chronic Assessment and plan: Patient states that she has history of hemangioma of liver and following up with [facility]. (6) Insulin dependent diabetes mellitus Current Visit: No Status: Chronic Assessment and plan: Low dose SSI (7) History of Clostridium difficile colitis Current Visit: Yes Status: Acute Assessment and plan: contact precautions as needed Starting antibiotics, monitor for clinical status (8) Pneumonia Current Visit: Yes Status: Acute Assessment and plan: Multifocal right pneumonia demonstrated on CT Chest Blood and sputum cultures pending Start Azithromycin + Rocephin Monitor clinical status Consider pulmonology consult in the morning Qualifiers: Pneumonia type: due to unspecified organism Laterality: right Lung location: lower lobe of lung Qualified Code(s): J18.1 - Lobar pneumonia, unspecified organism - Time Spent With Patient Total time spent is greater than 50% in coordination of care (as documented) at patient's floor/unit and/or counseling patient: - Subjective Interval history: The patient seen and examined at bedside. She has no acute complaints this morning, says that she is feeling significantly better than she was previously. - Constitutional Vitals: Temp Pulse Resp BP Pulse Ox 97.6 F 86 16 150/75 97 08/05/17 07:13 08/05/17 07:13 08/05/17 07:13 08/05/17 07:13 08/05/17 07:13 General appearance: Present: A&O X 3, no acute distress, answers questions appropriately Exam: Gen: Vitals noted. No acute distress. HEENT: Normocephalic, atraumatic Neck: Supple. No adenopathy. Cardiac: RRR, no murmur, +S1/S2 Pulmonary: Diminished b/l with rales, improved from previous Abdomen: soft, nontender, BS noted, no guarding MSK: ROM intact, no joint swelling noted Extremities: L. upper hand first and 5th phalanges present. R leg s/p BKA, L LE 2+ edema, nontender calf, darkened skin suggestive of chronic vascular disease. Neuro: A&Ox3, moves all extremities, no focal deficits Psych: Appropriate mood and behavior Internal Medicine: Result - Labs CBC & Chem 7: 08/05/17 06:00 08/05/17 06:00 Labs: Short CBC 08/05/17 Range/Units 06:00 WBC 9.6 (4.3-11.1) K/mcL Hgb 10.9 L (11.5-15.4) g/dL Hct 35.2 L (35.3-44.9) % Plt Count 256 (140-400) K/mcL Neutrophils # 6.4 (1.6-8.9) K/mcL BMP 08/05/17 06:00 Sodium 137 Potassium 4.1 Chloride 100 Carbon Dioxide 29 BUN 17 Creatinine 0.43 L Glucose 309 H Calcium 8.6 Liver Function 08/05/17 Range/Units 06:00 Total Bilirubin 1.0 (0.3-1.0) mg/dL AST 7 L (13-39) Units/L ALT 7 (7-52) Units/L Alkaline Phosphatase 101 (34-104) Units/L Albumin 3.6 (3.5-5.7) g/dL - ABG Interpretation ABG results: PT/INR, D-dimer PT 14.6 Seconds (9.4-12.1) H 08/03/17 17:10 - Impressions Impressions Chest X-Ray 08/04/17 15:48 IMPRESSION: 1. Persistent though decreased small to moderate right pleural effusion status post thoracentesis. No evident right pneumothorax. 2. Decreased right basilar airspace opacity potentially representing atelectasis and/or pneumonia. 3. Minimal left basilar atelectasis. 4. Pulmonary vascular congestion and mild cardiomegaly. D/ / Sergei Bhatti MD / Sergei Bhatti MD Interpreting Provider: Sergei Bhatti MD Echocardiogram 08/04/17 23:07 Impressions: LVEF 50-55%. Normal LV chamber size, wall thickness and function. Indeterminate diastolic function. Normal right ventricular structure and function. No evidence of a PFO with agitated saline contrast. Mild tricuspid regurgitation. Moderate pulmonary hypertension. Left Ventricular Wall Motion: Rest Echo Findings All wall segments showed normal motion. Findings: Study Quality * Technically adequate exam. ECG Findings * Normal sinus rhythm. Left Ventricle * LVEF 50-55%. * Normal LV chamber size, wall thickness and function. * Indeterminate diastolic function. Right Ventricle * Normal right ventricular structure and function. Left Atrium * Mildly dilated left atrium. Right Atrium * Mildly dilated right atrium. Interatrial Septum * No evidence of a PFO with agitated saline contrast. Aortic Valve * Trileaflet aortic valve with normal function. * No aortic regurgitation. * No aortic stenosis. Mitral Valve * Normal mitral valve structure and function. * No mitral stenosis. * No mitral regurgitation. Tricuspid Valve * Normal tricuspid valve structure. * Mild tricuspid regurgitation. * Moderate pulmonary hypertension. Pulmonic Valve * Normal pulmonic valve structure and function. * Trace pulmonic regurgitation. Aorta * Normally sized aortic root. Pericardium * The pericardium appears normal. IVC * Normal IVC dimensions and inspiratory collapse. Pulmonary Artery * Normal visualized portions of the main pulmonary artery. Chest CT 08/05/17 10:26 IMPRESSION: 1. Multifocal ground-glass and masslike consolidative opacities throughout the right lung most likely represent multifocal pneumonia. However, intrapulmonary N/C is not excluded. Suggest clinical correlation, consider formal pulmonary consultation and possible bronchoscopy and biopsy to further evaluate the right lung opacities. 2. Bilateral pleural effusions with dependent consolidative opacity within bilateral lower lobes, likely passive atelectasis. 3. Stable borderline enlarged mediastinal lymphadenopathy is unchanged from multiple prior studies, and likely benign given its stability. 4. Stable large heterogeneous mass within the right hepatic lobe, similar in comparison with prior studies, possibly a hemangioma. However, further evaluation of this abnormality as advised on the study of 08/03/2017, is recommended. 5. Mild amount of upper abdominal ascites. D/ : / 08/05/2017 13:04:55 Faizan Malcolm MD / bcarter Interpreting Provider: Faizan Malcolm MD - VTE Documentation of Mechanical Device: Intermittent pneumatic compression device Consult Discharge Plan - Plan Referrals: Almas Ac DO [Primary Care Provider] - <Alphonso Manuel - Last Filed: 08/05/17 14:40> Date of Encounter: 08/05/17 - Assessment and plan (1) Dyspnea Current Visit: Yes Status: Acute Qualifiers: Dyspnea type: unspecified Qualified Code(s): R06.00 - Dyspnea, unspecified (2) Hemangioma of liver Current Visit: No Status: Chronic (3) Insulin dependent diabetes mellitus Current Visit: No Status: Chronic (4) Ascites Current Visit: Yes Status: Acute Qualifiers: Ascites type: other type Qualified Code(s): R18.8 - Other ascites (5) Pleural effusion Current Visit: Yes Status: Acute (6) History of Clostridium difficile colitis Current Visit: Yes Status: Acute (7) Congestive heart failure Current Visit: Yes Status: Acute Qualifiers: Heart failure type: diastolic Heart failure chronicity: acute on chronic Qualified Code(s): I50.33 - Acute on chronic diastolic (congestive) heart failure (8) Pneumonia Current Visit: Yes Status: Acute Qualifiers: Pneumonia type: due to unspecified organism Laterality: right Lung location: lower lobe of lung Qualified Code(s): J18.1 - Lobar pneumonia, unspecified organism - Time Spent With Patient Total time spent is greater than 50% in coordination of care (as documented) at patient's floor/unit and/or counseling patient: - Constitutional Vitals: Temp Pulse Resp BP Pulse Ox 97.6 F 86 16 150/75 97 08/05/17 07:13 08/05/17 07:13 08/05/17 07:13 08/05/17 07:13 08/05/17 07:13 Internal Medicine: Result - Labs CBC & Chem 7: 08/05/17 06:00 08/05/17 06:00 Labs: Short CBC 08/05/17 Range/Units 06:00 WBC 9.6 (4.3-11.1) K/mcL Hgb 10.9 L (11.5-15.4) g/dL Hct 35.2 L (35.3-44.9) % Plt Count 256 (140-400) K/mcL Neutrophils # 6.4 (1.6-8.9) K/mcL BMP 08/05/17 06:00 Sodium 137 Potassium 4.1 Chloride 100 Carbon Dioxide 29 BUN 17 Creatinine 0.43 L Glucose 309 H Calcium 8.6 Liver Function 08/05/17 Range/Units 06:00 Total Bilirubin 1.0 (0.3-1.0) mg/dL AST 7 L (13-39) Units/L ALT 7 (7-52) Units/L Alkaline Phosphatase 101 (34-104) Units/L Albumin 3.6 (3.5-5.7) g/dL - ABG Interpretation ABG results: PT/INR, D-dimer PT 14.6 Seconds (9.4-12.1) H 08/03/17 17:10 - Impressions Impressions Chest X-Ray 08/04/17 15:48 IMPRESSION: 1. Persistent though decreased small to moderate right pleural effusion status post thoracentesis. No evident right pneumothorax. 2. Decreased right basilar airspace opacity potentially representing atelectasis and/or pneumonia. 3. Minimal left basilar atelectasis. 4. Pulmonary vascular congestion and mild cardiomegaly. D/ / Sergei Bhatti MD / Sergei Bhatti MD Interpreting Provider: Sergei Bhatti MD Echocardiogram 08/04/17 23:07 Impressions: LVEF 50-55%. Normal LV chamber size, wall thickness and function. Indeterminate diastolic function. Normal right ventricular structure and function. No evidence of a PFO with agitated saline contrast. Mild tricuspid regurgitation. Moderate pulmonary hypertension. Left Ventricular Wall Motion: Rest Echo Findings All wall segments showed normal motion. Findings: Study Quality * Technically adequate exam. ECG Findings * Normal sinus rhythm. Left Ventricle * LVEF 50-55%. * Normal LV chamber size, wall thickness and function. * Indeterminate diastolic function. Right Ventricle * Normal right ventricular structure and function. Left Atrium * Mildly dilated left atrium. Right Atrium * Mildly dilated right atrium. Interatrial Septum * No evidence of a PFO with agitated saline contrast. Aortic Valve * Trileaflet aortic valve with normal function. * No aortic regurgitation. * No aortic stenosis. Mitral Valve * Normal mitral valve structure and function. * No mitral stenosis. * No mitral regurgitation. Tricuspid Valve * Normal tricuspid valve structure. * Mild tricuspid regurgitation. * Moderate pulmonary hypertension. Pulmonic Valve * Normal pulmonic valve structure and function. * Trace pulmonic regurgitation. Aorta * Normally sized aortic root. Pericardium * The pericardium appears normal. IVC * Normal IVC dimensions and inspiratory collapse. Pulmonary Artery * Normal visualized portions of the main pulmonary artery. Chest CT 08/05/17 10:26 IMPRESSION: 1. Multifocal ground-glass and masslike consolidative opacities throughout the right lung most likely represent multifocal pneumonia. However, intrapulmonary N/C is not excluded. Suggest clinical correlation, consider formal pulmonary consultation and possible bronchoscopy and biopsy to further evaluate the right lung opacities. 2. Bilateral pleural effusions with dependent consolidative opacity within bilateral lower lobes, likely passive atelectasis. 3. Stable borderline enlarged mediastinal lymphadenopathy is unchanged from multiple prior studies, and likely benign given its stability. 4. Stable large heterogeneous mass within the right hepatic lobe, similar in comparison with prior studies, possibly a hemangioma. However, further evaluation of this abnormality as advised on the study of 08/03/2017, is recommended. 5. Mild amount of upper abdominal ascites. D/ / 08/05/2017 13:04:55 Faizan Malcolm MD / bcarter Interpreting Provider: Faizan Malcolm MD - Attending Attestation Moderate to large sized right pleural effusion possibly related to Community acquired pneumonia, consider possible malignancy Thoracenteses performed on 08/04/17 showed 4265 cells LDH was 84, will add serum LDH to compare cytology pending Pulmonary consult Start Ceftriazone and azithromycin Not able to perform paracenteses due to risk of perforation Continue Lasix CT chest showed: 1. Multifocal ground-glass and masslike consolidative opacities throughout the right lung most likely represent multifocal pneumonia. However, intrapulmonary N/C is not excluded. Suggest clinical correlation, consider formal pulmonary consultation and possible bronchoscopy and biopsy to further evaluate the right lung opacities. 2. Bilateral pleural effusions with dependent consolidative opacity within bilateral lower lobes, likely passive atelectasis. 3. Stable borderline enlarged mediastinal lymphadenopathy is unchanged from multiple prior studies, and likely benign given its stability. 4. Stable large heterogeneous mass within the right hepatic lobe, similar in comparison with prior studies, possibly a hemangioma. However, further evaluation of this abnormality as advised on the study of 08/03/2017, is recommended. 5. Mild amount of upper abdominal ascites. I examined this patient and my medical decision-making was reviewed with the Resident Physician. I agree with the documented findings, disposition and treatment plan as described except to the extent set forth below.
[2017-08-06 04:02] LABS: Basophils % 0.2 %; Eosinophils # 0.2 K/mcL (0.0-0.6); Eosinophils % 1.5 %; Hematocrit 36.5 % (35.3-44.9); Hemoglobin 11.2 g/dL (11.5-15.4); Immature Granulocytes % 0.7 % (0-4); Lymphocytes # 2.4 K/mcL (0.6-4.6); Lymphocytes % 23.3 %; Mean Corpuscular HGB Conc 30.7 g/dL (31.6-35.5); Mean Corpuscular Hemoglobin 23.6 pg (28.0-33.3); Mean Platelet Volume 10.6 fL (9.4-12.4); Monocytes # 0.6 K/mcL (0.0-1.3); Monocytes % 5.6 %; Platelet Count 264 K/mcL (140-400); Red Blood Count 4.74 M/mcL (3.82-4.97); Red Cell Distribution Width 14.6 % (11.5-14.5); Segmented Neutrophils % 68.7 %
[2017-08-06 04:23] LABS: Alanine Aminotransferase 6 Units/L (7-52); Albumin 3.9 g/dL (3.5-5.7); Albumin/Globulin Ratio 1.6 (1.1-2.2); Alkaline Phosphatase 102 Units/L (34-104); Aspartate Amino Transferase 7 Units/L (13-39); BUN/Creatinine Ratio 39 (6-26); Bilirubin,Total 0.8 mg/dL (0.3-1.0); Blood Urea Nitrogen 20 mg/dL (6-20); Calcium 8.6 mg/dL (8.6-10.3); Carbon Dioxide 29 mEq/L (23-29); Chloride 97 mEq/L (98-107); Globulin 2.4 g/dL (2.4-3.5); Glucose 391 mg/dL (70-105); Osmolality,Calculated 297 (280-300); Potassium 4.2 mEq/L (3.5-5.1); Sodium 134 mEq/L (136-145); Total Protein 6.3 g/dL (6.4-8.9); eGFR For African Americans > 60 (> 60); eGFR For Non-African Americans > 60 (> 60)
[2017-08-06 07:35] VITALS: BP 130/77
[2017-08-06] MEDS ORDERED: Insulin LISPRO 300 UNITS/3 ML VIAL SQ SCH ×2 (07:59)
[2017-08-06] MEDS ORDERED: Insulin DETEMIR 100 UNIT/ML X5UNITS SQ ONE (08:01)
[2017-08-06] MEDS: amLODIPine 5 MG TABLET PO SCH (09:00)
[2017-08-06] MEDS: Furosemide 20 MG/2 ML VIAL IVP SCH (09:00)
[2017-08-10 00:19] LABS: QuantiFERON Mitogen minus NIL >10.00 IU/mL; QuantiFERON-TB minus NIL 0.01 IU/mL (0.00-0.34)
[2017-08-10 09:28] LABS: QuantiFERON NIL 0.02 IU/mL; QuantiFERON-TB Gold In-Tube NEGATIVE (Negative)
== END 2017-08-06 16:01 | disposition home or self-care (01) | DRG 291 ==
LOC: EMEROO 16:44 → 2NENU 16:44
PROVIDERS: ADMIT Internal Medicine; ATTEND Internal Medicine

== ENCOUNTER 2018-01-22 17:00 | Inpatient (IN) ==
[2018-01-22] MEDS ORDERED: Levofloxacin 750 MG/150 ML 750 MG/150 ML BAG IVPB ONE (18:43)
--- NOTE | 2018-01-22 18:58 | Emergency Department Note ---
Disposition Clinical Impression: Pulmonary edema Qualifiers: Chronicity: acute Qualified Code(s): J81.0 - Acute pulmonary edema Ulcer of left foot Qualifiers: Non-pressure ulcer stage: limited to breakdown of skin Qualified Code(s): L97.521 - Non-pressure chronic ulcer of other part of left foot limited to breakdown of skin Disposition: Admitted As Inpatient Condition: Fair General Adult HPI - General Chief complaint: ED Wound/Laceration Stated complaint: left foot wound Time Seen by Provider: 01/22/18 18:27 Source: patient, family Mode of arrival: private vehicle Limitations: no limitations Nursing Notes Reviewed: Yes Vital Signs Reviewed: Yes - History of Present Illness HPI Narrative: Patient with history of insulin-dependent diabetes and 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 She states that the wound on her foot is from an insert in her shoe and it has been present for several weeks. Her family convinced her to come to the ER today for evaluation. Pt Subjective Complaint: Wound on foot, fluid in lungs and abdomen, cough and ABURTO Onset (ago): week(s) (3) Location: left, lower extremity (foot) Radiation: non-radiation Pain Severity: mild Pain Scale: 2 Quality: dull Consistency: intermittent Improves with: nothing Worsens with: other (weight bearing) Associated symptoms: Reports: cough, malaise, shortness of breath (ABURTO - mild), other (ascites). Denies: confusion, chest pain, diaphoresis, fever/chills, headaches, loss of appetite, nausea/vomiting, rash, seizure, syncope, weakness - Related Data Home Medications Medication Instructions Recorded Confirmed RX: Sertraline [Zoloft] 100 mg PO DAILY 10/15/14 01/22/18 RX: Omeprazole [PriLOSEC] 20 mg PO DAILY 06/19/16 01/22/18 RX: Insulin Aspart Prot/Insuln Asp 80 unit SQ BID 08/03/17 01/22/18 [Novolog Mix 70-30 Vial] RX: OxyCODONE/APAP 5/325 [Percocet 1 tab PO TID 08/03/17 01/22/18 5/325 MG] Allergies Allergy/AdvReac Type Severity Reaction Status Date / Time No Known Allergies Allergy Verified 08/03/17 21:31 All systems ED: reviewed and negative except as stated. Review of Systems: As Per HPI Constitutional: Denies: fever, chills, weakness Cardiovascular: Reports: dyspnea on exertion, edema ("abdomen"). Denies: chest pain, palpitations, orthopnea, syncope, paroxysmal nocturnal dyspnea Respiratory: Reports: as per HPI, cough. Denies: dyspnea, wheezes, hemoptysis, stridor, sputum production Gastrointestinal: Denies: abdominal pain, nausea, vomiting, diarrhea, constipation Genitourinary: Denies: urgency, dysuria, frequency, hematuria Musculoskeletal: Denies: back pain, neck pain, joint swelling, arthralgia Integumentary: Reports: lesions (left plantar first MTP). Denies: rash Neurological: Denies: headache, weakness, numbness, paresthesias, confusion, vertigo Endocrine: Denies: fatigue Hematological/Lymphatic: Denies: easy bleeding, easy bruising, lymphadenopathy Past Medical History - Past Medical History Attestation: Yes The following information was validated with the patient. 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 Absent: scleral icterus, conjunctival injection, periorbital swelling - ENT ENT exam: mucous membranes moist - Neck Neck exam: Present: normal inspection, full ROM, trachea midline. Absent: meningismus - Chest Chest inspection: Present: normal inspection - Respiratory Respiratory exam: Present: other. Absent: respiratory distress, wheezes, stridor, accessory muscle use, prolonged expiratory phase - Expanded Respiratory Exam Location: rales: Left, Right, Upper, Lower, decreased breath sounds: Left, Right, Lower - Cardiovascular Cardiovascular exam: Present: regular rate, normal rhythm, normal heart sounds. Absent: systolic murmur, diastolic murmur - Abdominal Exam Abdominal exam: Present: soft, Non-Tender, distention, ascites. Absent: guarding, rebound, rigidity, mass, pulsatile mass - Extremities Exam Extremities exam: Present: normal inspection, tenderness, normal capillary refill. Absent: pedal edema - Expanded Lower Extremity Exam Hip/Pelvis exam: Present: full ROM Knee exam: Present: full ROM Lower leg exam: Present: normal inspection (left), Achilles tendon intact. Absent: tenderness, swelling, ecchymosis, crepitus, erythema, Homans' sign Ankle exam: Present: normal inspection, full ROM. Absent: tenderness, swelling Foot/toe exam: Present: full ROM, tenderness. Absent: swelling, ecchymosis, deformity, crepitus, erythema, calcaneal tenderness, tenderness at base of 5th metatarsal 1 - callus with possible fluid collection and central dark area Neurovascular/Tendon exam: Present: normal capillary refill, normal fine/light touch. Absent: pulse deficit, motor deficit, sensory deficit, tendon deficit, extremity cold to touch, pallor, foot drop, significant pain with passive ROM of distal joint Gait: antalgic - Back Exam Back exam: Present: normal inspection. Absent: CVA tenderness (R), CVA tenderness (L) - Neurological Exam Neurological exam: Present: alert, oriented X3, CN II-XII intact, normal gait - Psychiatric Psychiatric exam: Present: normal affect, normal mood - Skin Skin exam: Present: warm, dry, intact, normal color Course Course Narrative: Insulin dependent vasculopath with hx of CHF, pneumonia and pleural effusions (requiring thorocentesis in July), right BKA and ascites of "unknown cause" presents for eval of ABURTO and cough, increased ascites, and a wound on the left foot x several weeks. No fever, chills, nausea, vomiting, peripheral edema, hemoptysis. Patient examined, EKG, labs, xrays ordered. Vitals normal, but crackles and diminished breath sounds bilat. Concerned for pnemonia. Foot wound present for several weeks, has central dark area. Also concerned for possible wound infection. Blood cultures and Levaquin ordered. Patient's labs actually look pretty good. EKG unchanged c/w previous - no ST changes. CXR shows bilat effusions and pulmonary edema. Foot xray shows no bone involvement. Patient has no O2 requirement at this time, but has hx of pleural effusions that required removal of almost 2L of fluid about 6 months ago. Case discussed with Dr. Fairchild. He has had face to face time with the patient and agrees with the assessment. He recommends admission. Consulted with Dr. Mtz - [facility] Assistant Navigator. He will see the patient tomorrow. No intervention requested. Hospitalist has accepted the patient. Vital Signs Temperature 97.6 F 01/22/18 17:02 Pulse Rate 98 01/22/18 17:02 Respiratory Rate 15 01/22/18 17:02 Blood Pressure 158/82 01/22/18 17:02 O2 Sat by Pulse Oximetry 98 01/22/18 17:02 Temperature 98 F 01/23/18 05:23 Pulse Rate 87 01/23/18 05:23 Respiratory Rate 16 01/23/18 05:23 Blood Pressure 106/65 01/23/18 05:23 O2 Sat by Pulse Oximetry 92 01/23/18 05:23 Oxygen Delivery Oxygen Delivery Room Air Medical Decision Making - Medical Records Medical records reviewed: Yes I reviewed the patient's medical records. - Lab Data Lab results reviewed: Yes I reviewed the patient's lab results. Lab results narrative: Laboratory Last Values WBC 10.5 K/mcL (4.3-11.1) 01/22/18 19:06 RBC 6.38 M/mcL (3.82-4.97) H 01/22/18 19:06 Hgb 15.2 g/dL (11.5-15.4) 01/22/18 19:06 Hct 49.1 % (35.3-44.9) H 01/22/18 19:06 MCV 77.0 fL (83.0-100.0) L 01/22/18 19:06 MCH 23.8 pg (28.0-33.3) L 01/22/18 19:06 MCHC 31.0 g/dL (31.6-35.5) L 01/22/18 19:06 RDW 16.6 % (11.5-14.5) H 01/22/18 19:06 Plt Count 263 K/mcL (140-400) 01/22/18 19:06 MPV 9.9 fL (9.4-12.4) 01/22/18 19:06 Immature Gran % 1.1 % (0-4) 01/22/18 19:06 Seg Neutrophils % 72.6 % 01/22/18 19:06 Lymphocytes % 20.6 % 01/22/18 19:06 Monocytes % 4.4 % 01/22/18 19:06 Eosinophils % 0.9 % 01/22/18 19:06 Basophils % 0.4 % 01/22/18 19:06 Neutrophils # 7.7 K/mcL (1.6-8.9) 01/22/18 19:06 Lymphocytes # 2.2 K/mcL (0.6-4.6) 01/22/18 19:06 Monocytes # 0.5 K/mcL (0.0-1.3) 01/22/18 19:06 Eosinophils # 0.1 K/mcL (0.0-0.6) 01/22/18 19:06 Basophils # 0.0 K/mcL (0.0-0.2) 01/22/18 19:06 Sodium 134 mEq/L (136-145) L 01/22/18 19:06 Potassium 4.5 mEq/L (3.5-5.1) 01/22/18 19:06 Chloride 96 mEq/L (98-107) L 01/22/18 19:06 Carbon Dioxide 29 mEq/L (23-29) 01/22/18 19:06 BUN 20 mg/dL (6-20) 01/22/18 19:06 Creatinine 0.71 mg/dL (0.60-1.20) 01/22/18 19:06 Est GFR ( Amer) > 60 (> 60) 01/22/18 19:06 Est GFR (Non-Af Amer) > 60 (> 60) 01/22/18 19:06 BUN/Creatinine Ratio 28 (6-26) H 01/22/18 19:06 Glucose 260 mg/dL (70-105) H 01/22/18 19:06 Calculated Osmolality 290 (280-300) 01/22/18 19:06 Lactic Acid 1.2 mmol/L (0.5-2.2) 01/22/18 18:59 Calcium 10.3 mg/dL (8.6-10.3) 01/22/18 19:06 Total Bilirubin 0.7 mg/dL (0.3-1.0) 01/22/18 19:06 Direct Bilirubin 0.2 mg/dL (0.0-0.2) 01/22/18 19:06 Indirect Bilirubin 0.5 mg/dL (0.0-1.2) 01/22/18 19:06 AST 18 Units/L (13-39) 01/22/18 19:06 ALT 14 Units/L (7-52) 01/22/18 19:06 Alkaline Phosphatase 169 Units/L (34-104) H 01/22/18 19:06 B-Natriuretic Peptide 88 pg/mL (Less than 100) 01/22/18 19:06 Serum Total Protein 8.3 g/dL (6.4-8.9) 01/22/18 19:06 Albumin 4.7 g/dL (3.5-5.7) 01/22/18 19:06 Globulin 3.6 g/dL (2.4-3.5) H 01/22/18 19:06 Albumin/Globulin Ratio 1.3 (1.1-2.2) 01/22/18 19:06 Result diagrams: 01/23/18 05:40 01/22/18 19:06 Lab Results 01/22/18 01/22/18 01/22/18 Range/Units 18:59 19:06 19:06 WBC 10.5 (4.3-11.1) K/mcL RBC 6.38 H (3.82-4.97) M/mcL Hgb 15.2 (11.5-15.4) g/dL Hct 49.1 H (35.3-44.9) % MCV 77.0 L (83.0-100.0) fL MCH 23.8 L (28.0-33.3) pg MCHC 31.0 L (31.6-35.5) g/dL RDW 16.6 H (11.5-14.5) % Plt Count 263 (140-400) K/mcL MPV 9.9 (9.4-12.4) fL Immature Gran % 1.1 (0-4) % Seg Neutrophils % 72.6 % Lymphocytes % 20.6 % Monocytes % 4.4 % Eosinophils % 0.9 % Basophils % 0.4 % Neutrophils # 7.7 (1.6-8.9) K/mcL Lymphocytes # 2.2 (0.6-4.6) K/mcL Monocytes # 0.5 (0.0-1.3) K/mcL Eosinophils # 0.1 (0.0-0.6) K/mcL Basophils # 0.0 (0.0-0.2) K/mcL Sodium 134 L (136-145) mEq/L Potassium 4.5 (3.5-5.1) mEq/L Chloride 96 L (98-107) mEq/L Carbon Dioxide 29 (23-29) mEq/L BUN 20 (6-20) mg/dL Creatinine 0.71 (0.60-1.20) mg/dL Est GFR ( Amer) > 60 (> 60) Est GFR (Non-Af Amer) > 60 (> 60) BUN/Creatinine Ratio 28 H (6-26) Glucose 260 H (70-105) mg/dL Calculated Osmolality 290 (280-300) Lactic Acid 1.2 (0.5-2.2) mmol/L Calcium 10.3 (8.6-10.3) mg/dL Total Bilirubin 0.7 (0.3-1.0) mg/dL Direct Bilirubin 0.2 (0.0-0.2) mg/dL Indirect Bilirubin 0.5 (0.0-1.2) mg/dL AST 18 (13-39) Units/L ALT 14 (7-52) Units/L Alkaline Phosphatase 169 H (34-104) Units/L Troponin I < 0.03 (< 0.04) ng/mL B-Natriuretic Peptide (Less than 100) pg/mL Serum Total Protein 8.3 (6.4-8.9) g/dL Albumin 4.7 (3.5-5.7) g/dL Globulin 3.6 H (2.4-3.5) g/dL Albumin/Globulin Ratio 1.3 (1.1-2.2) 01/22/18 Range/Units 19:06 WBC (4.3-11.1) K/mcL RBC (3.82-4.97) M/mcL Hgb (11.5-15.4) g/dL Hct (35.3-44.9) % MCV (83.0-100.0) fL MCH (28.0-33.3) pg MCHC (31.6-35.5) g/dL RDW (11.5-14.5) % Plt Count (140-400) K/mcL MPV (9.4-12.4) fL Immature Gran % (0-4) % Seg Neutrophils % % Lymphocytes % % Monocytes % % Eosinophils % % Basophils % % Neutrophils # (1.6-8.9) K/mcL Lymphocytes # (0.6-4.6) K/mcL Monocytes # (0.0-1.3) K/mcL Eosinophils # (0.0-0.6) K/mcL Basophils # (0.0-0.2) K/mcL Sodium (136-145) mEq/L Potassium (3.5-5.1) mEq/L Chloride (98-107) mEq/L Carbon Dioxide (23-29) mEq/L BUN (6-20) mg/dL Creatinine (0.60-1.20) mg/dL Est GFR ( Amer) (> 60) Est GFR (Non-Af Amer) (> 60) BUN/Creatinine Ratio (6-26) Glucose (70-105) mg/dL Calculated Osmolality (280-300) Lactic Acid (0.5-2.2) mmol/L Calcium (8.6-10.3) mg/dL Total Bilirubin (0.3-1.0) mg/dL Direct Bilirubin (0.0-0.2) mg/dL Indirect Bilirubin (0.0-1.2) mg/dL AST (13-39) Units/L ALT (7-52) Units/L Alkaline Phosphatase (34-104) Units/L Troponin I (< 0.04) ng/mL B-Natriuretic Peptide 88 (Less than 100) pg/mL Serum Total Protein (6.4-8.9) g/dL Albumin (3.5-5.7) g/dL Globulin (2.4-3.5) g/dL Albumin/Globulin Ratio (1.1-2.2) - Radiology Data Radiology results reviewed: Yes I reviewed the patient's radiology results. Chest X-Ray 01/22/18 18:45 IMPRESSION: Findings suggest pulmonary edema, including bilateral pleural effusions. D/ / 01/22/2018 20:44:36 Tameka White MD / florentin Interpreting Provider: Tameka White MD Foot X-Ray 01/22/18 19:56 IMPRESSION: Soft tissue swelling and gas medial to the first MTP joint, consistent with known open wound. No radiographic evidence of osteomyelitis. D/ / 01/22/2018 20:45:49 Tameka White MD / florentin Interpreting Provider: Tameka White MD Attestation Statement - Attestation Attestation: I examined this patient and my medical decision-making was reviewed with the Resident Physician. I agree with the documented findings, disposition and treatment plan as described except to the extent set forth below. Findings consistent with lower extremity edema as well as ascites. The patient does have evidence of pleural effusions. There is also a 1 on the left foot. We will consult podiatry, antibiotics were initiated, admission for cardiac consultation and possible pulmonary consultation.
[2018-01-22 19:23] LABS: Basophils % 0.4 %; Eosinophils # 0.1 K/mcL (0.0-0.6); Eosinophils % 0.9 %; Hematocrit 49.1 % (35.3-44.9); Hemoglobin 15.2 g/dL (11.5-15.4); Immature Granulocytes % 1.1 % (0-4); Lymphocytes # 2.2 K/mcL (0.6-4.6); Lymphocytes % 20.6 %; Mean Corpuscular Hemoglobin 23.8 pg (28.0-33.3); Mean Platelet Volume 9.9 fL (9.4-12.4); Monocytes # 0.5 K/mcL (0.0-1.3); Monocytes % 4.4 %; Neutrophils # 7.7 K/mcL (1.6-8.9); Platelet Count 263 K/mcL (140-400); Red Blood Count 6.38 M/mcL (3.82-4.97); Red Cell Distribution Width 16.6 % (11.5-14.5); Segmented Neutrophils % 72.6 %
[2018-01-22 19:43] LABS: Alanine Aminotransferase 14 Units/L (7-52); Albumin 4.7 g/dL (3.5-5.7); Albumin/Globulin Ratio 1.3 (1.1-2.2); Alkaline Phosphatase 169 Units/L (34-104); Aspartate Amino Transferase 18 Units/L (13-39); BUN/Creatinine Ratio 28 (6-26); Bilirubin,Direct 0.2 mg/dL (0.0-0.2); Bilirubin,Indirect 0.5 mg/dL (0.0-1.2); Bilirubin,Total 0.7 mg/dL (0.3-1.0); Blood Urea Nitrogen 20 mg/dL (6-20); Calcium 10.3 mg/dL (8.6-10.3); Carbon Dioxide 29 mEq/L (23-29); Chloride 96 mEq/L (98-107); Globulin 3.6 g/dL (2.4-3.5); Glucose 260 mg/dL (70-105); Osmolality,Calculated 290 (280-300); Potassium 4.5 mEq/L (3.5-5.1); Sodium 134 mEq/L (136-145); Total Protein 8.3 g/dL (6.4-8.9); eGFR For Non-African Americans > 60 (> 60)
[2018-01-22 21:19] LABS: Troponin I < 0.03 ng/mL (< 0.04)
[2018-01-22] MEDS ORDERED: Furosemide 40 MG/4 ML VIAL IVP ONE (21:44)
--- NOTE | 2018-01-22 22:20 | Internal Med History&Physical ---
<Vero Tavares Jeffery - Last Filed: 01/22/18 23:32> Date of Encounter: 01/22/18 Internal Medicine - H&P: HPI History of present illness: Ms. Anthony Cook is a 57 year old female Internal Medicine - H&P: Meds Sertraline [Zoloft] 100 mg PO DAILY 10/15/14 [History] Omeprazole [PriLOSEC] 20 mg PO DAILY 06/19/16 [History] Insulin Aspart Prot/Insuln Asp [Novolog Mix 70-30 Vial] 80 unit SQ BID 08/03/17 [History] OxyCODONE/APAP 5/325 [Percocet 5/325 MG] 1 tab PO TID 08/03/17 [History] Allergy/AdvReac Type Severity Reaction Status Date / Time No Known Allergies Allergy Verified 08/03/17 21:31 All Systems PM: A 10-system review of systems was performed and is negative for pertinent findings except as documented above in the HPI. - Constitutional Vitals: Temp Pulse Resp BP Pulse Ox 98.4 F 91 16 120/65 95 01/22/18 22:43 01/22/18 22:43 01/22/18 22:43 01/22/18 22:43 01/22/18 23:02 Internal Med - H&P Results - Labs CBC & Chem 7: 01/22/18 19:06 01/22/18 19:06 Labs: Short CBC 01/22/18 Range/Units 19:06 WBC 10.5 (4.3-11.1) K/mcL Hgb 15.2 (11.5-15.4) g/dL Hct 49.1 H (35.3-44.9) % Plt Count 263 (140-400) K/mcL Neutrophils # 7.7 (1.6-8.9) K/mcL BMP 01/22/18 19:06 Sodium 134 L Potassium 4.5 Chloride 96 L Carbon Dioxide 29 BUN 20 Creatinine 0.71 Glucose 260 H Calcium 10.3 Cardiac Enzymes 01/22/18 Range/Units 19:06 Troponin I < 0.03 (< 0.04) ng/mL Liver Function 01/22/18 Range/Units 19:06 Total Bilirubin 0.7 (0.3-1.0) mg/dL Direct Bilirubin 0.2 (0.0-0.2) mg/dL AST 18 (13-39) Units/L ALT 14 (7-52) Units/L Alkaline Phosphatase 169 H (34-104) Units/L Albumin 4.7 (3.5-5.7) g/dL - Impressions ITS Impressions Chest X-Ray 01/22/18 18:45 IMPRESSION: Findings suggest pulmonary edema, including bilateral pleural effusions. D/ / 01/22/2018 20:44:36 Tameka White MD / florentin Interpreting Provider: Tameka White MD Foot X-Ray 01/22/18 19:56 IMPRESSION: Soft tissue swelling and gas medial to the first MTP joint, consistent with known open wound. No radiographic evidence of osteomyelitis. D/ /22/2018 20:45:49 Tameka White MD / florentin Interpreting Provider: Tameka White MD - Time Spent With Patient Total time spent is greater than 50% in coordination of care (as documented) at patient's floor/unit and/or counseling patient: - Attending Attestation I performed a history and physical examination of the patient and discussed her management with the resident. I reviewed the resident's note and agree with the documented findings and plan of care. 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 Patient states she checks her foot periodically and has noted a developing lesion on the plantar aspect just proximal to the big toe. She became concerned because of a previous infection involving the right lower extremity resulting in amputation. Patient otherwise denies any fever or chills. Examination of the foot does show a 1 cm x 0.5 cm callus lesion with with a central darkening area on the plantar aspect of the left foot, nonerythematous without any evidence of purulent discharge. In the ED there was some concern for shortness of breath and a chest x-ray was performed which showed bilateral effusions and pulmonary edema. Faint crackles were appreciated the bilateral bases. She was given 1 dose of Lasix in the ED. Patient denies any shortness of breath nor does she endorse any recent shortness of breath prior to arrival. Her abdomen does appear to be distended but states that she has not noticed any increase in abdominal girth. Patient does not have previous history of ascites. Plan: Podiatry has been consult and will see patient in the morning. Patient received 1 dose of levofloxacin due to concern for a pneumonia. Patient does not have any white count nor does she endorse a fever or cough. We will hold off further antibiotics for now and follow blood cultures. We will obtain echocardiogram to reassess cardiac function. We will obtain CT scan of the abdomen to evaluate for ascites. <Yogi Vuong - Last Filed: 01/23/18 02:13> Date of Encounter: 01/23/18 Time of Encounter: 22:17 Internal Medicine - H&P: HPI Chief complaint: Shortness of breath History of present illness: Ms. Anthony Cook is a 57 year old female with a PMH of DM, HLD, GERD, BKA on the right from osteomyelitis presented to [facility] ED on 01/22/18 for cough and increased abdominal fluid. Patient also complained of a foot wound that has been there for one month. Patient reported that she is concerned that she has pneumonia again. She attributes the wound on her foot from an insert in her shoe. Upon arrival to the emergency department, patients vital signs were as follows: Temperature 97.6, HR 98, RR 15, BP 158/82, O2 sat 98. CXR demonstrated findings suggestive of pulmonary edema, including bilateral pleural effusions. Foot x-ray demonstrated soft tissue swelling and gas medial to the first MTP joint consistent with known open wound. No radiographic evidence of osteomyelitis. Laboratory analysis was significant for an elevated glucose at 260, and an elevated alkaline phosphatase at 169. In the ED, patient was given a one-time dose of Levaquin. Blood cultures were ordered 2. Podiatry was consulted from the ED. Patient was seen and examined at bedside. Reports feeling well overall. Stated that the main reason she came into the hospital was because of her foot. She denies any pain, numbness, tingling, or paresthesia in her foot. Also denies fever, chills, nausea, vomiting, diarrhea, shortness of breath, chest pain, or increased sputum production. No further complaints at this time. Past Med Surg Social Fam HX - Past Medical History Medical history: diabetes, GERD, hyperlipidemia, other (BKA right due to osteomyelitis of right foot from a wound) Additional medical history: hemangioma on liver. Psychiatric history: anxiety, depression - Past Surgical History Surgical History: cholecystectomy, other Additional surgical history: Right BKA - Social History Smoking Status: Former smoker Smokeless Tobacco Status: No Alcohol use: none Drug use: none - Family History Mother Living Status: Hx Family Cardiac Disorders: Yes Hx Family Respiratory Disorders: No Hx Family Cancer: Yes Hx Family GI Disorders: No Hx Family Endocrine Disorder: No Hx Family Neuromuscular Disorders: No Hx Family Neurologic Disorders: No Hx Family HEENT Disorders: No Hx Family Autoimmune Disorders: No Father Living Status: Hx Family Endocrine Disorder: Yes All Systems PM: A 10-system review of systems was performed and is negative for pertinent findings except as documented above in the HPI. - Constitutional Constitutional: no chills, no fever(s), no night sweats - EENT Eyes: no change in vision, no discharge, no pain, no photophobia Ears: no ear discharge, no ear pain, no tinnitus Nose, mouth and throat: no dysphagia, no nasal discharge, no neck pain, no sore throat - Cardiovascular Cardiovascular ROS IM: no chest pain, no diaphoresis, no dyspnea, no lightheadedness, no palpitations, no syncope - Respiratory Respiratory: cough, dyspnea, dyspnea on exertion, no wheezing, no excessive phlegm production - Gastrointestinal Gastrointestinal: no abdominal pain, no diarrhea, no hematemesis, no hematochezia, no melena, no nausea, no vomiting - Genitourinary Genitourinary: no change in urinary stream, no dysuria, no flank pain, no hematuria - Musculoskeletal Musculoskeletal ROS IM: no numbness, no tingling - Integumentary Integumentary IM: no rash, no unusual bruising - Neurological Neurological ROS: no confusion, no convulsions, no focal weakness, no numbness, no tingling, no tremor(s) - Hematologic/Lymphatic Hematologic/Lymphatic: no easy bruising - Constitutional Vitals: Temp Pulse Resp BP Pulse Ox 97.6 F 95 18 140/70 97 01/22/18 19:30 01/22/18 21:19 01/22/18 21:19 01/22/18 21:19 01/22/18 21:19 Exam: General: A&O X3, conversant, no acute distress Head: atraumatic, normocephalic Eye: PERRL, EOMI, conjuntiva pink, sclera anicteric Neck: Supple, trachea midline; No lymphadenopathy Respiratory: Decreased breath sounds bilaterally, prolonged expiratory phase, bibasilar crackles Cardiovascular: RRR, +S1, +S2; no murmurs, rubs, gallops Abdomen: Soft, nontender, ascites Extremities: Patient has a below the knee amputation on the right; left plantar first MTP lesion Neurological: CN II-XII intact Psychiatric: Normal affect, normal mood Skin: Dry, intact Internal Med - H&P Results - Labs CBC & Chem 7: 01/22/18 19:06 01/22/18 19:06 Labs: Short CBC 01/22/18 Range/Units 19:06 WBC 10.5 (4.3-11.1) K/mcL Hgb 15.2 (11.5-15.4) g/dL Hct 49.1 H (35.3-44.9) % Plt Count 263 (140-400) K/mcL Neutrophils # 7.7 (1.6-8.9) K/mcL BMP 01/22/18 19:06 Sodium 134 L Potassium 4.5 Chloride 96 L Carbon Dioxide 29 BUN 20 Creatinine 0.71 Glucose 260 H Calcium 10.3 Cardiac Enzymes 01/22/18 Range/Units 19:06 Troponin I < 0.03 (< 0.04) ng/mL Liver Function 01/22/18 Range/Units 19:06 Total Bilirubin 0.7 (0.3-1.0) mg/dL Direct Bilirubin 0.2 (0.0-0.2) mg/dL AST 18 (13-39) Units/L ALT 14 (7-52) Units/L Alkaline Phosphatase 169 H (34-104) Units/L Albumin 4.7 (3.5-5.7) g/dL - Impressions ITS Impressions Chest X-Ray 01/22/18 18:45 IMPRESSION: Findings suggest pulmonary edema, including bilateral pleural effusions. D/ / 01/22/2018 20:44:36 Tameka White MD / florentin Interpreting Provider: Tameka White MD Foot X-Ray 01/22/18 19:56 IMPRESSION: Soft tissue swelling and gas medial to the first MTP joint, consistent with known open wound. No radiographic evidence of osteomyelitis. D/ /22/2018 20:45:49 Tameka White MD / florentin Interpreting Provider: Tameka White MD - Assessment and plan (1) Cough Current Visit: Yes Status: Acute Assessment and plan: Presented with cough x 1 month; Unknown etiology at this time; secondary to PNA versus pulmonary edema secondary to CHF - CXR demonstrated findings suggestive of pulmonary edema with bilateral pleural effusions - TTE from 08/04/17 demonstrated the following: LVEF 50-55%, normal LV chamber s ize and function, indeterminant diastolic function, mild tricuspid regurgitation, moderate pulmonary HTN - Patient was given a one-time dose of Levaquin in the ED for suspected PNA - Blood cultures pending 2 Plan: - Strep and Legionella antigen - O2 support as necessary, DuoNeb's - Repeat TTE - Low suspicion for PNA at this time; will not continue antibiotics (2) Wound of left foot Current Visit: Yes Status: Acute Assessment and plan: Patient presented with a foot wound of one month's duration - X-ray of foot demonstrates no signs of osteomyelitis - Patient does have a known history of osteomyelitis on the right with a BKA - Laboratory analysis is unremarkable - Patient attributes her wound to a heel insert in her shoe Plan: - Podiatry has been consulted, awaiting recommendations - ESR, CRP (3) Insulin dependent diabetes mellitus Current Visit: No Status: Chronic Assessment and plan: Patient has a known history of diabetes mellitus - Presented with an elevated glucose of 260 - SSI, diabetic diet (4) Ascites Current Visit: No Status: Acute Assessment and plan: Patient presented with increased abdominal swelling - Will order CT abd/pelv Qualifiers: - Time Spent With Patient Total time spent is greater than 50% in coordination of care (as documented) at patient's floor/unit and/or counseling patient: 25 - 35 minutes
[2018-01-22] MEDS ORDERED: Naloxone 0.4 MG/ML INJ IVP PRN (22:22)
[2018-01-22] MEDS ORDERED: 0.9 % Sodium Chloride 1,000 ML IVC SCH (22:30)
[2018-01-22] MEDS ORDERED: *HR* OxyCODONE/APAP 5/325 TABLET PO ONE (23:26)
[2018-01-23] MEDS ORDERED: *HR* Dextrose 50 % in Water (Syg) 50 ML SYRINGE IVP PRN ×2 (00:56→12:24)
[2018-01-23] MEDS ORDERED: D5% in Water 1,000 ML IVC PRN ×2 (00:56→12:24)
[2018-01-23] MEDS ORDERED: Dextrose Gel 15 GM/37.5 ML TUBE PO PRN ×4 (00:56→12:24)
[2018-01-23] MEDS: Ondansetron 4 MG/2 ML VIAL IVP PRN ×3 (02:42→16:10)
[2018-01-23] MEDS: *HR* Heparin 5,000 UNIT/ML VIAL SQ SCH ×3 (05:30→22:02)
[2018-01-23 05:52] LABS: Basophils % 0.4 %; Eosinophils # 0.1 K/mcL (0.0-0.6); Eosinophils % 1.3 %; Hematocrit 42.9 % (35.3-44.9); Immature Granulocytes % 0.7 % (0-4); Lymphocytes # 2.8 K/mcL (0.6-4.6); Lymphocytes % 25.5 %; Mean Corpuscular HGB Conc 31.2 g/dL (31.6-35.5); Mean Corpuscular Hemoglobin 24.1 pg (28.0-33.3); Mean Corpuscular Volume 77.3 fL (83.0-100.0); Monocytes # 0.7 K/mcL (0.0-1.3); Monocytes % 6.1 %; Neutrophils # 7.2 K/mcL (1.6-8.9); Platelet Count 222 K/mcL (140-400); Red Blood Count 5.55 M/mcL (3.82-4.97); Red Cell Distribution Width 16.5 % (11.5-14.5)
[2018-01-23 05:53] LABS: Hemoglobin 13.4 g/dL (11.5-15.4)
[2018-01-23 05:58] LABS: INR 1.3; Prothrombin Time 14.2 Seconds (9.4-12.1)
[2018-01-23 06:48] LABS: BUN/Creatinine Ratio 37 (6-26); Blood Urea Nitrogen 22 mg/dL (6-20); Calcium 9.2 mg/dL (8.6-10.3); Carbon Dioxide 24 mEq/L (23-29); Chloride 97 mEq/L (98-107); Chol/HDL Ratio 7.1 (0-4.9); Cholesterol 255 mg/dL (< 200); Glucose 383 mg/dL (70-105); HDL Cholesterol 36 mg/dL (40-59); LDL Cholesterol,Calculated 142 mg/dL (0-99); Osmolality,Calculated 295 (280-300); Potassium 5.1 mEq/L (3.5-5.1); Sodium 133 mEq/L (136-145); Triglycerides 385 mg/dL (< 150); eGFR For Non-African Americans > 60 (> 60)
[2018-01-23] MEDS: Insulin LISPRO 300 UNITS/3 ML VIAL SQ SCH ×4 (07:55→22:01)
[2018-01-23] MEDS ORDERED: *HR* OxyCODONE/APAP 5/325 TABLET PO SCH (09:00)
--- NOTE | 2018-01-23 12:21 | Internal Med Progress Note ---
Hospitalist Progress Note - Encounter Date of Encounter: 01/23/18 Time of Encounter: 08:00 - Subjective Interval History: 57 y/o F with history of ascites in the setting of a liver hemangioma which is being followed closely at [facility] who presents due to concern of a developing infection in her left foot. she has has noted a developing lesion on the plantar aspect just proximal to the big toe. she is unsure if tehre was trauma to the LLE, she denies fever, chills, N/V/D. currently tolerating diet. denies SOB, cough, Chest pain, orthopnea or PND - Exam Vitals: Temp Pulse Resp BP Pulse Ox 97.8 F 87 16 109/67 93 01/23/18 10:59 01/23/18 10:59 01/23/18 10:59 01/23/18 10:59 01/23/18 10:59 Exam: General: Patient is alert, oriented, no acute distress, Head: atraumatic, normocephalic, Eye: normal appearance, PERRL, no scleral icterus, no conjunctival injection ENT: mucous membranes moist, normal external ear exam Neck: normal inspection, trachea midline, full ROM, no carotid bruits Chest: normal inspection, symmetric chest rise Respiratory: Good respiratory effort. Bilateral breath sounds are clear without wheezing, crackles, or rhonchi. Cardiovascular: Regular rate and rhythm. s1 and s2 No clicks, rubs, gallops, or murmors. Abdomen: Bowel sounds present normoactive x-4 quadrants. Abdomen is soft, distended. no Epigastric tenderness. No guarding or rebound. No organomegaly noted, obese musculoskeletal: Spontaneously moving all extremities. has right sided BKA no edema, no calf tenderness Skin: warm, dry, intact. has 1 cm x 0.5 cm callus lesion with with a central darkening area on the plantar aspect of the left foot, nonerythematous without any evidence of purulent discharge. Neuro: Alert and oriented x4. Sensation light touch intact. Cranial nerves 2- 12 is intact. no focal deficit Psych: Patient's affect is normal - Assessment and Plan (1) Diabetic foot ulcer Current Visit: No Status: Chronic Assessment and Plan: LLE ulcer ESR 89, CRP 42 lactic acid 1.2 JULIANA A1c in AM podiatry consulted will follow recommendations MRI of the LLE as per podiatry pain control Vancomycin and Zosyn IV (2) Bilateral pleural effusion Current Visit: Yes Status: Acute Assessment and Plan: was given lasix 40 mg IV - will continue with 20mg daily Echocardiogram no WBC count or fever will hold off of Abx for now (3) IDDM (insulin dependent diabetes mellitus) Current Visit: Yes Status: Acute Assessment and Plan: starte dher on long acting insulin 12 units qhS along with high dose sliding scale strict glucose control follow A1c in AM (4) Hyperlipidemia Current Visit: Yes Status: Acute Assessment and Plan: was counseled on diet for PCP to follow lipid panel and consider starting statins. (5) DVT prophylaxis Current Visit: No Status: Acute Assessment and Plan: heparin sc - Time Spent with Patient Total time spent is greater than 50% in coordination of care (as documented) at patient's floor/unit and/or counseling patient: Internal Medicine: Result - Labs CBC & Chem 7: 01/23/18 05:40 01/23/18 05:40 Labs: Short CBC 01/22/18 01/23/18 Range/Units 19:06 05:40 WBC 10.5 10.9 (4.3-11.1) K/mcL Hgb 15.2 13.4 D (11.5-15.4) g/dL Hct 49.1 H 42.9 (35.3-44.9) % Plt Count 263 222 (140-400) K/mcL Neutrophils # 7.7 7.2 (1.6-8.9) K/mcL BMP 01/22/18 01/23/18 19:06 05:40 Sodium 134 L 133 L Potassium 4.5 5.1 Chloride 96 L 97 L Carbon Dioxide 29 24 BUN 20 22 H Creatinine 0.71 0.59 L Glucose 260 H 383 H Calcium 10.3 9.2 Cardiac Enzymes 01/22/18 Range/Units 19:06 Troponin I < 0.03 (< 0.04) ng/mL Liver Function 01/22/18 Range/Units 19:06 Total Bilirubin 0.7 (0.3-1.0) mg/dL Direct Bilirubin 0.2 (0.0-0.2) mg/dL AST 18 (13-39) Units/L ALT 14 (7-52) Units/L Alkaline Phosphatase 169 H (34-104) Units/L Albumin 4.7 (3.5-5.7) g/dL - ABG Interpretation ABG results: PT/INR, D-dimer PT 14.2 Seconds (9.4-12.1) H 01/23/18 05:40 - Impressions Impressions Chest X-Ray 01/22/18 18:45 IMPRESSION: Findings suggest pulmonary edema, including bilateral pleural effusions. D/ / 01/22/2018 20:44:36 Tameka White MD / florentin Interpreting Provider: Tameka White MD Foot X-Ray 01/22/18 19:56 IMPRESSION: Soft tissue swelling and gas medial to the first MTP joint, consistent with known open wound. No radiographic evidence of osteomyelitis. D/ : / 01/22/2018 20:45:49 Tameka White MD / florentin Interpreting Provider: Tameka White MD Abdomen/Pelvis CT 01/23/18 23:51 IMPRESSION: 1. There is trace free fluid in the pelvis. No other ascites. 2. Diverticulosis without scan evidence for diverticulitis. 3. Grossly stable heterogeneous mass in the liver. 4. Small right pleural effusion. D/ / Ronald Hearn MD / Ronald Hearn MD Interpreting Provider: Ronald Hearn MD Consult Discharge Plan - Plan Referrals: Almas Ac DO [Primary Care Provider] - (1) Diabetic foot ulcer Qualifiers: Diabetic foot ulcer location: midfoot Diabetes mellitus type: type 2 Laterality: left Non-pressure ulcer stage: limited to breakdown of skin Qualified Code(s): E11.621 - Type 2 diabetes mellitus with foot ulcer; L97.421 - Non-pressure chronic ulcer of left heel and midfoot limited to breakdown of skin (4) Hyperlipidemia Qualifiers: Hyperlipidemia type: mixed hyperlipidemia Qualified Code(s): E78.2 - Mixed hyperlipidemia
--- NOTE | 2018-01-23 14:27 | Podiatry Consult Note ---
Date of Encounter: 01/24/18 Time of Encounter: 12:00 Assessment and Plan (1) IDDM (insulin dependent diabetes mellitus) Current visit: Yes Status: Acute (2) Ulcer of left foot Current visit: Yes Status: Acute Assessment: Hyperkeratosis with associated blood filled bullous lesion noted to left foot Plan: Does not appear infectious in appearance Wound was debrided at bedside, hematoma evacuated- There is an underlying ulceration, castro stage II into the subQ tissue but without probe to bone, 0.8cmx0.5cm0.3cm, fibrous macerated tissue to base and surrounding ulceration. no drainage, no odor, no sinus tracts or undermining Cultures were obtained Minimal indication for MRI at this time as wound does not appear infected Patient will need to offload as much as possible, bulk dressing applied, weight bearing to heel, protection of foot limited related to patient having right BKA- Will need post operative shoe prior to discharge- patient states she cannot ambulate with weight of CAM or diabetic boot JULIANA's have been ordered- Xray negative for osteomyelitis Blood cultures have been obtained Patient current on vanc and zosyn WBC 10.5, ESR 89, CRP 42. Will continue to monitor betadine painted to wound and dry bulk dressing placed to wound for tonight to dry maceration- will change tomorrow - will place dressing orders based on appearance of wound. Qualifiers: Non-pressure ulcer stage: limited to breakdown of skin Qualified Code(s): L97.521 - Non-pressure chronic ulcer of other part of left foot limited to callum akdown of skin History of Present Illness HPI: Ms. Anthony Cook is a 57 year old female with a medical history of IDDM and PAD with right BKA completed on 06/30/2016 related to progressive ischemia and ulceration with charcot of the right foot. Patient presented to hospital related to ulceration of the left foot. States ulceration has been present x1 month. Denies any known drainage. Notes wound is black. Patient relates that she has had nausea x2 days and is vomiting upon entering room. Patient was admitted for evaluation of foot wound. She was also noted to have pleural effusions. WBC 10.5, ESR 89, CRP 42 xray negative for osteomyelitis. Past Med Surg Social Fam HX - Past Medical History Medical history: diabetes, GERD, hyperlipidemia, other (BKA right due to osteomyelitis of right foot from a wound) Additional medical history: hemangioma on liver. Psychiatric history: anxiety, depression - Past Surgical History Surgical History: cholecystectomy, other Additional surgical history: Right BKA - Social History Smoking Status: Former smoker Smokeless Tobacco Status: No Alcohol use: none Drug use: none - Family History Mother Living Status: Hx Family Cardiac Disorders: Yes Hx Family Respiratory Disorders: No Hx Family Cancer: Yes Hx Family GI Disorders: No Hx Family Endocrine Disorder: No Hx Family Neuromuscular Disorders: No Hx Family Neurologic Disorders: No Hx Family HEENT Disorders: No Hx Family Autoimmune Disorders: No Father Living Status: Hx Family Cardiac Disorders: Yes (MS) Hx Family Endocrine Disorder: Yes Medications and Allergies Sertraline [Zoloft] 100 mg PO DAILY 10/15/14 [History] Omeprazole [PriLOSEC] 20 mg PO DAILY 06/19/16 [History] Insulin Aspart Prot/Insuln Asp [Novolog Mix 70-30 Vial] 80 unit SQ BID 08/03/17 [History] OxyCODONE/APAP 5/325 [Percocet 5/325 MG] 1 tab PO TID PRN 08/03/17 [History] Allergy/AdvReac Type Severity Reaction Status Date / Time No Known Allergies Allergy Verified 08/03/17 21:31 All Systems Reviewed: as per HPI Physical Exam - Constitutional Vitals: Temp Pulse Resp BP Pulse Ox 97.8 F 87 16 109/67 93 01/23/18 10:59 01/23/18 10:59 01/23/18 10:59 01/23/18 10:59 01/23/18 10:59 Exam: Awake alert and oriented DP/PT pulses per signal Warm toes to tibia No edema noted Minimal sensation to light or moderate touch related to neuropathy Movement intact Cap refill <3 seconds to all toes No calf pain with manual compression There is hyperkeratosis noted sub mt head #1 left with associated sub dermal hematoma. There is associated bullous lesion extending to medial aspect of mt head and distally extending between webspaces of toes #1 and #1. There is fluctuant dark blood noted within bullous lesion. There is no associated warmth, erythema or edema. There is no noted drainage. Will debride at bedside for further assessment. Results - Labs Result Diagrams: 01/24/18 05:47 01/24/18 05:47 Labs: Abnormal lab results RBC 5.55 M/mcL (3.82-4.97) H 01/23/18 05:40 MCV 77.3 fL (83.0-100.0) L 01/23/18 05:40 MCH 24.1 pg (28.0-33.3) L 01/23/18 05:40 MCHC 31.2 g/dL (31.6-35.5) L 01/23/18 05:40 RDW 16.5 % (11.5-14.5) H 01/23/18 05:40 ESR 89 mm/hr (0-15) H 01/23/18 05:40 PT 14.2 Seconds (9.4-12.1) H 01/23/18 05:40 Sodium 133 mEq/L (136-145) L 01/23/18 05:40 Chloride 97 mEq/L (98-107) L 01/23/18 05:40 BUN 22 mg/dL (6-20) H 01/23/18 05:40 Creatinine 0.59 mg/dL (0.60-1.20) L 01/23/18 05:40 BUN/Creatinine Ratio 37 (6-26) H 01/23/18 05:40 Glucose 383 mg/dL (70-105) H 01/23/18 05:40 POC Glucose 364 mg/dL (70-99) H 01/23/18 11:29 Alkaline Phosphatase 169 Units/L (34-104) H 01/22/18 19:06 C-Reactive Protein 42 mg/L (Less than 10) H 01/23/18 05:40 Globulin 3.6 g/dL (2.4-3.5) H 01/22/18 19:06 Triglycerides 385 mg/dL (< 150) H 01/23/18 05:40 Cholesterol 255 mg/dL (< 200) H 01/23/18 05:40 LDL Cholesterol, Calc 142 mg/dL (0-99) H 01/23/18 05:40 VLDL Cholesterol, Calc 77 mg/dL (< 31) H 01/23/18 05:40 HDL Cholesterol 36 mg/dL (40-59) L 01/23/18 05:40 Cholesterol/HDL Ratio 7.1 (0-4.9) H 01/23/18 05:40 H & H 01/22/18 01/23/18 Range/Units 19:06 05:40 Hgb 15.2 13.4 D (11.5-15.4) g/dL Hct 49.1 H 42.9 (35.3-44.9) % All other labs normal. Consult Discharge Plan - Plan Referrals: Almas Ac DO [Primary Care Provider] - 01/31/18 2:00 pm (Please follow up as schedule...)
[2018-01-23] MEDS: Piperacillin/Tazobactam 3.375 GM in 0.9 % Sodium Chloride Mini Bag 100 ML IVPB SCH (16:10)
[2018-01-23] MEDS ORDERED: Perflutren Lipid Microsphere 1.3 ML in 0.9 % Sodium Chloride 8.7 ML IVP ONE (19:05)
[2018-01-23] MEDS: *HR* OxyCODONE/APAP 5/325 TABLET PO PRN (20:17)
[2018-01-23] MEDS ORDERED: Insulin LISPRO 300 UNITS/3 ML VIAL SQ SCH (21:00)
[2018-01-23] MEDS ORDERED: Insulin DETEMIR 100 UNIT/ML X5UNITS SQ SCH (21:00)
[2018-01-24] MEDS: Piperacillin/Tazobactam 3.375 GM in 0.9 % Sodium Chloride Mini Bag 100 ML IVPB SCH ×2 (01:00→07:33)
[2018-01-24 06:33] LABS: Hematocrit 42.3 % (35.3-44.9); Hemoglobin 13.1 g/dL (11.5-15.4); Mean Corpuscular Hemoglobin 24.2 pg (28.0-33.3); Mean Platelet Volume 10.7 fL (9.4-12.4); Platelet Count 198 K/mcL (140-400); Red Blood Count 5.42 M/mcL (3.82-4.97); Red Cell Distribution Width 15.9 % (11.5-14.5)
[2018-01-24 07:17] LABS: Estimated Average Glucose 301 mg/dl; Hemoglobin A1C 12.1 %
[2018-01-24] MEDS: Insulin LISPRO 300 UNITS/3 ML VIAL SQ SCH ×4 (07:32→21:14)
[2018-01-24] MEDS: *HR* Heparin 5,000 UNIT/ML VIAL SQ SCH ×3 (07:32→21:13)
[2018-01-24] MEDS: *HR* OxyCODONE/APAP 5/325 TABLET PO PRN (07:43)
[2018-01-24] MEDS: Ondansetron 4 MG/2 ML VIAL IVP PRN (07:43)
[2018-01-24 07:57] LABS: BUN/Creatinine Ratio 38 (6-26); Blood Urea Nitrogen 19 mg/dL (6-20); Calcium 8.8 mg/dL (8.6-10.3); Carbon Dioxide 26 mEq/L (23-29); Chloride 101 mEq/L (98-107); Glucose 360 mg/dL (70-105); Osmolality,Calculated 295 (280-300); Potassium 4.4 mEq/L (3.5-5.1); Sodium 134 mEq/L (136-145); eGFR For Non-African Americans > 60 (> 60)
[2018-01-24] MEDS ORDERED: Furosemide 20 MG TABLET PO PRN ×2 (09:00→12:35)
--- NOTE | 2018-01-24 12:26 | Internal Med Progress Note ---
Hospitalist Progress Note - Encounter Date of Encounter: 01/24/18 Time of Encounter: 07:45 - Subjective Interval History: 57 y/o F with history of ascites in the setting of a liver hemangioma which is being followed closely at [facility] who presents due to concern of a developing infection in her left foot. she has has noted a developing lesion on the plantar aspect just proximal to the big toe. she is unsure if tehre was trauma to the LLE, she denies fever, chills, N/V/D. currently tolerating diet. denies SOB, cough, Chest pain, orthopnea or PND - Exam Vitals: Temp Pulse Resp BP Pulse Ox 98.1 F 84 16 103/63 93 01/24/18 11:17 01/24/18 11:17 01/24/18 11:17 01/24/18 11:17 01/24/18 11:17 Exam: General: Patient is alert, oriented, no acute distress, Head: atraumatic, normocephalic, Eye: normal appearance, PERRL, no scleral icterus, no conjunctival injection ENT: mucous membranes moist, normal external ear exam Neck: normal inspection, trachea midline, full ROM, no carotid bruits Chest: normal inspection, symmetric chest rise Respiratory: Good respiratory effort. Bilateral breath sounds are clear without wheezing, crackles, or rhonchi. Cardiovascular: Regular rate and rhythm. s1 and s2 No clicks, rubs, gallops, or murmors. Abdomen: Bowel sounds present normoactive x-4 quadrants. Abdomen is soft, distended. no Epigastric tenderness. No guarding or rebound. No organomegaly noted, obese musculoskeletal: Spontaneously moving all extremities. has right sided BKA no edema, no calf tenderness Skin: warm, dry, intact. LLE is wrapped in clean dressing. Neuro: Alert and oriented x4. Sensation light touch intact. Cranial nerves 2- 12 is intact. no focal deficit Psych: Patient's affect is normal - Assessment and Plan (1) Diabetic foot ulcer Current Visit: No Status: Chronic Assessment and Plan: LLE ulcer s/p debridement on 01/23 no drainage, no odor, no sinus tracts or undermining as per podiatry wound cx in process ESR 89, CRP 42 lactic acid 1.2 JULIANA- pending A1c 01/23/18- 12.1 podiatry consulted s/p debridement at bedside holding off of MRI of the LLE as per podiatry pain control Abx discontinued as per podiatry recommendations wound care as per podiatry (2) Bilateral pleural effusion Current Visit: Yes Status: Acute Assessment and Plan: was given lasix 40 mg IV - will continue with 20mg daily Echocardiogram - LVEF 55%. Normal LV chamber size, wall thickness and systolic function. Moderately dilated right ventricle with mild hypokinesis. Persistent D-shape septum consistent with RV pressure overload, pulmonary hypertension. no WBC count or fever will hold off of Abx for now cardiology consulted will follow recommendations (3) Pulmonary hypertension Current Visit: Yes Status: Acute Assessment and Plan: seen on TTE on 01/23/18- Moderately dilated right ventricle with mild hypokines is. Persistent D-shape septum consistent with RV pressure overload, pulmonary hypertension. continue oxygen via nasal cannula Duo-nebs V/Q scan STAT based on above results will consider pulmonology consultation (4) IDDM (insulin dependent diabetes mellitus) Current Visit: Yes Status: Acute Assessment and Plan: uncontrolled A1c is 12.1 on 01/23 started her on long acting insulin 12 units qhS will increase to 25 units Qhs as glucose remains above 200 along with high dose sliding scale strict glucose control (5) Hyperlipidemia Current Visit: Yes Status: Acute Assessment and Plan: was counseled on diet for PCP to follow lipid panel will start her on statins (6) Liver mass, right lobe Current Visit: Yes Status: Acute Assessment and Plan: as per patient sh has ascites in the setting of a liver hemangioma which is being followed closely at [facility] will get records from [facility] (7) DVT prophylaxis Current Visit: No Status: Acute Assessment and Plan: heparin sc - Time Spent with Patient Total time spent is greater than 50% in coordination of care (as documented) at patient's floor/unit and/or counseling patient: Internal Medicine: Result - Labs CBC & Chem 7: 01/24/18 05:47 01/24/18 05:47 Labs: Short CBC 01/24/18 Range/Units 05:47 WBC 8.6 (4.3-11.1) K/mcL Hgb 13.1 (11.5-15.4) g/dL Hct 42.3 (35.3-44.9) % Plt Count 198 (140-400) K/mcL BMP 01/24/18 05:47 Sodium 134 L Potassium 4.4 Chloride 101 Carbon Dioxide 26 BUN 19 Creatinine 0.50 L Glucose 360 H Calcium 8.8 - ABG Interpretation ABG results: PT/INR, D-dimer PT 14.2 Seconds (9.4-12.1) H 01/23/18 05:40 - Impressions Impressions Chest X-Ray 01/22/18 18:45 IMPRESSION: Findings suggest pulmonary edema, including bilateral pleural effusions. D/ / 01/22/2018 20:44:36 Tameka White MD / florentin Interpreting Provider: Tameka White MD Foot X-Ray 01/22/18 19:56 IMPRESSION: Soft tissue swelling and gas medial to the first MTP joint, consistent with known open wound. No radiographic evidence of osteomyelitis. D/ / 01/22/2018 20:45:49 Tameka White MD / florentin Interpreting Provider: Tameka White MD Echocardiogram Limited Views 01/22/18 22:29 Impressions: LVEF 55%. Normal LV chamber size, wall thickness and systolic function. Moderately dilated right ventricle with mild hypokinesis. Persistent D-shape septum consistent with RV pressure overload, pulmonary hypertension. Left Ventricular Wall Motion: Rest Echo Findings All wall segments showed normal motion. Findings: Comments * Limited Echo. Study Quality * Technically adequate exam. ECG Findings * Normal sinus rhythm. Left Ventricle * LVEF 55%. * Normal LV chamber size, wall thickness and systolic function. * Definity echo contrast was used. Right Ventricle * Moderately dilated right ventricle. * Mild right ventricular hypokinesis. * Persistent D-shape septum consistent with RV pressure overload, pulmonary hypertension. Left Atrium * Mildly dilated left atrium. Right Atrium * Normal right atrial size. Consult Discharge Plan - Plan Referrals: lAmas Ac DO [Primary Care Provider] - 01/31/18 2:00 pm (Please follow up as schedule...) (1) Diabetic foot ulcer Qualifiers: Diabetic foot ulcer location: midfoot Diabetes mellitus type: type 2 Laterality: left Non-pressure ulcer stage: limited to breakdown of skin Qualified Code(s): E11.621 - Type 2 diabetes mellitus with foot ulcer; L97.421 - Non-pressure chronic ulcer of left heel and midfoot limited to breakdown of skin (5) Hyperlipidemia Qualifiers: Hyperlipidemia type: mixed hyperlipidemia Qualified Code(s): E78.2 - Mixed hyperlipidemia
[2018-01-24] MEDS ORDERED: Isovue-370 500 ML INFUS..BTL IV ONE (13:23)
--- NOTE | 2018-01-24 16:05 | Procedure Note ---
Date of procedure: 01/23/18 Pre-op diagnosis: hyperkeratosis with blood filled bullous lesion Post-op diagnosis: other (Reyna stage II diabetic ulceration) Procedure: Discussed debridement with patient and need to evacuate hematoma - discussed risks vs benefits and verbal consent was obtained at bedside Painted wound with betadine prior to procedure Sharp debridement was performed using #15 sterile blade at bedside to remove devitalized tissue surrounding ulceration to the plantar aspect of the left foot. a [id number] area was debrided into the subQ tissue. 3cc of bloody fluid was released from wound after debridement. There was no further bleeding or drainage noted. Cultures were obtained from drainage and sent to lab. Patient tolerated procedure well Wound was flushed with saline, painted again with betadine and dry 4x4 and kerlix was applied to wound. [id number] Anesthesia: none Surgeon: Citlali Li Was there an office manager executive assistant present: No Estimated blood loss (cc): 0 Specimen: cultures sent Pathology: none sent Condition: stable Disposition: floor
--- NOTE | 2018-01-24 16:08 | Procedure Note ---
Date of procedure: 01/24/18 Pre-op diagnosis: onychomycosis Post-op diagnosis: same Procedure: Nail debridement #1 Exam and evaluate #2 Discuss and educate on diabetic foot care and necessity for daily inspection of skin. Discuss proper footwear fit and size. #3 Debridement of nails x5 of left foot in Length, width and thickness with nail nipper to prevent ulceration or trauma to nails. Anesthesia: GETA, none Surgeon: Citlali Li Was there an talent acquisition assistant present: No Estimated blood loss (cc): 0 Specimen: none Pathology: none sent Condition: stable Disposition: floor
--- NOTE | 2018-01-24 16:11 | Podiatry Progress Note ---
Date of Encounter: 01/24/18 Time of Encounter: 12:00 - Assessment and Plan (1) IDDM (insulin dependent diabetes mellitus) Current Visit: Yes Status: Acute Discussed a1c of 12.0 Patient reports that she was not aware of glucose was so poorly controlled Patient states she does not monitor is as closely as she should Explained this placed her at a very high risk of wound healing complications States she is not on nighttime insulin and this is when her glucose spikes May need to consider addition of lantus at bedtime prior to discharge (2) Ulcer of left foot Current Visit: Yes Status: Acute Assessment: Hyperkeratosis with associated blood filled bullous lesion noted to left foot Plan: Does not appear infectious in appearance Wound was debrided at bedside yesterday, hematoma evacuated- underlying ulceration, castro stage II into the subQ tissue but without probe to bone, 0. 6cmx0.4cm0.3cm, fibrous macerated tissue to base and surrounding ulceration has improved since prior exam. no drainage, no odor, no sinus tracts or undermining Cultures were obtained and gram stain shows gram positive cocci- hospitalist services has consulted ID for further recommendations. Minimal indication for MRI at this time as wound does not appear infected Patient will need to offload as much as possible, bulk dressing applied, weight bearing to heel, protection of foot limited related to patient having right BKA- Daily dressing changes, cleanse with saline, apply adaptic, 4x4 and kerlix bulk dressing Please send patient with adaptic and kerlix prior to discharge for home changes until she is able to be seen in wound care Once discharged will need to be seen by in the wound care center- please make appointment and provide to patient prior to discharge. Will need post operative shoe prior to discharge- patient states she cannot ambulate with weight of CAM or diabetic boot JULIANA's have been ordered-have not yet returned Xray negative for osteomyelitis Blood cultures have been obtained- await results as well as wound culture results Hospitalist services restarted vanc and consulted ID WBC 8.6 today, ESR 89, CRP 42. Will continue to monitor . Qualifiers: Non-pressure ulcer stage: limited to breakdown of skin Qualified Code(s): L97.521 - Non-pressure chronic ulcer of other part of left foot limited to br eakdown of skin Subjective Interval history: Following patient in regards to a left foot wound which was noted x1 month ago. Patient reports she is feeling somewhat better today. Reports vomiting this AM and remains nauseated at times. Wound of left foot was debrided at bedside today and dressing to foot which was placed s/p procedure is cdi. Patient denies any fevers, chills, or fls. Patient denies any calf pain or sob. Objective - Vital Signs Vital Signs: Vital Signs Temp Pulse Resp BP Pulse Ox 01/24/18 15:28 97.6 F 82 16 118/67 95 01/24/18 11:17 98.1 F 84 16 103/63 93 01/24/18 07:50 94 01/24/18 07:03 97.8 F 85 16 100/66 94 01/24/18 03:58 97.8 F 85 16 127/76 92 01/23/18 23:20 98 F 83 16 110/63 93 01/23/18 19:56 97.9 F 84 16 110/63 94 Intake and Output 01/24/18 01/24/18 01/24/18 07:59 15:59 23:59 Intake Total 300 / 300 710 / 710 Balance 300 / 300 710 / 710 Intake: IV Fluids 100 / 100 350 / 350 Zosyn 3.375 GM In 0.9 % Sodium 100 / 100 100 / 100 Chloride (Mini-Bag +) 100 ML @ 25 mls/hr IVPB Q8HR JULIEN Rx#: [id number] Vancocin 1,250 MG In 0.9 % 250 / 250 Sodium Chloride 250 ML @ 166.67 mls/hr IVPB Q12H JULIEN Rx#: [id number] Oral 200 / 200 360 / 360 Other: Meal Lunch Percent of Meal Consumed 100% # Voids 1 Blood Glucose* 319 201 - Exam Exam: Awake, alert and oriented Pulses palpable DP/PT warm toes to tibia Cap refill < 3 seconds There is a healing castro stage II wound to the plantar aspect of the left foot- sub mt head #1 Maceration surrounding wound has decreased since yesterdays assessment There is no probe to bone There is no drainage, odor or surrounding edema, erythema or warmth. No appearance of infection noted at this time. - Lab Result Diagrams: 01/24/18 05:47 01/24/18 05:47 Labs: Abnormal lab results RBC 5.42 M/mcL (3.82-4.97) H 11/14/18 05:47 MCV 78.0 fL (83.0-100.0) L 01/24/18 05:47 MCH 24.2 pg (28.0-33.3) L 01/24/18 05:47 MCHC 31.0 g/dL (31.6-35.5) L 01/24/18 05:47 RDW 15.9 % (11.5-14.5) H 01/24/18 05:47 ESR 89 mm/hr (0-15) H 01/23/18 05:40 PT 14.2 Seconds (9.4-12.1) H 01/23/18 05:40 Sodium 134 mEq/L (136-145) L 01/24/18 05:47 Creatinine 0.50 mg/dL (0.60-1.20) L 01/24/18 05:47 BUN/Creatinine Ratio 38 (6-26) H 01/24/18 05:47 Glucose 360 mg/dL (70-105) H 01/24/18 05:47 POC Glucose 259 mg/dL (70-99) H 01/23/18 19:49 Hemoglobin A1c 12.1 % (-5.6) H 01/24/18 05:47 Alkaline Phosphatase 169 Units/L (34-104) H 01/22/18 19:06 C-Reactive Protein 42 mg/L (Less than 10) H 01/23/18 05:40 Globulin 3.6 g/dL (2.4-3.5) H 01/22/18 19:06 Triglycerides 385 mg/dL (< 150) H 01/23/18 05:40 Cholesterol 255 mg/dL (< 200) H 01/23/18 05:40 LDL Cholesterol, Calc 142 mg/dL (0-99) H 01/23/18 05:40 VLDL Cholesterol, Calc 77 mg/dL (< 31) H 01/23/18 05:40 HDL Cholesterol 36 mg/dL (40-59) L 01/23/18 05:40 Cholesterol/HDL Ratio 7.1 (0-4.9) H 01/23/18 05:40 Microbiology, Last 48 Hours 01/23/18 17:22 Gram Stain - Preliminary Left Foot 01/22/18 19:06 Blood Culture - Preliminary Peripheral Venipuncture Culture is incubating and being continuously monitored for growth. Final report to follow. 01/22/18 19:06 Blood Culture - Preliminary Peripheral Venipuncture Culture is incubating and being continuously monitored for growth. Final report to follow. Consult Discharge Plan - Plan Referrals: Almas Ac DO [Primary Care Provider] - 01/31/18 2:00 pm (Please follow up as schedule...)
[2018-01-24] MEDS: Ipratropium/Albuterol Neb 3 ML IH SCH ×2 (16:36→20:13)
--- NOTE | 2018-01-24 17:31 | Infectious Disease Consult ---
Date of Encounter: 01/24/18 Time of Encounter: 17:12 Assessment and Plan (1) Ulcer of left foot Status: Acute Assessment and plan: Status post debridement by podiatry service. X-ray with no obvious osteomyelitis Wound appears superficial so I am not that concerned but ESR is 85 which makes little bit anxious. Especially with the fact that the patient already has a right BKA so a deep infection on the left side could have detrimental consequences. I will discuss with podiatry to see if they would like us to do an MRI prior to discharge because it is a lot more sensitive test to rule out osteomyelitis or they are very comfortable feeling that this is just a superficial infection and no further workup is needed. Cultures are pending but Gram stain is showing also gram-positive cocci, await final cultures and susceptibilities to make further recommendations on antibiotics and duration. Monitor labs and for drug toxicity Goal vancomycin trough 10-15 Qualifiers: Non-pressure ulcer stage: limited to breakdown of skin Qualified Code(s): L97.521 - Non-pressure chronic ulcer of other part of left foot limited to breakdown of skin (2) History of MRSA infection Status: Acute (3) Diabetes mellitus type 2 in nonobese Status: Acute (4) History of Clostridium difficile colitis Status: Acute Assessment and plan: Patient tells me she always has diarrhea and she had 2 bowel movements the last 24 hours. She tells me that when she had C. difficile was severe diarrhea and so much different than her baseline. I told the patient that if she has more than 3 watery bowel movements a day we have to check her for C. difficile. Continue to monitor closely specially with history of C. difficile and is currently on antibiotics. Infectious Disease HPI - Data of Consult Consult date: 01/24/18 Requesting Physician: Danielle St MD Primary Care Provider: Almas Ac - Consult Narrative Reason for consult: "Left lower extremity ulcer status post debridement" History of present illness: Ms. Anthony Cook is a 57 year old female Patient is a 57-year-old woman who presented to [facility] on 01/22/2018 for cough, shortness of breath and increased abdominal fluid. We are consulted on 01/24/2018 for left lower extremity ulcer status post debridement. Patient tells me that she reason she came in was because she had this wound on her left foot that made her very concerned. Patient tells me she never walks barefoot and takes good care of her feet. Patient denied any fevers or chills at home. Since admission, patient has been afebrile, tachycardic and no tachypnea. Presenting labs revealed a WBC of 10.5 with 73% neutrophils and no bands. Chemistry revealed a BUN 20 creatinine 0.71 and elevated blood sugar to 260. Lactic acid within normal limits at 1.2. ESR was 89. Blood cultures obtained 2 on January 22 both no growth to date. Left foot wound culture revealing many gram-positive cocci over 25 per high power field but final cultures are pending. X-ray on 01/22/2018 revealed soft tissue swelling and gas medial to the first MTP joint, consistent with known open wound. No radiographic evidence of osteomyelitis. CT abdomen pelvis with no IV no oral contrast reviewed and showed no acute infectious process. Patient also had a CT chest which shows negative study for pulmonary embolism, moderate right pleural effusion and associated likely dependent/compressive atelectasis to right lower lobe, improved from prior CT chest on 10/17/2017. Patient was started on vancomycin and Zosyn initially and we were asked to evaluate the patient and make further recommendations. On further review of the chart, patient was seen by me in July 2016. At that time patient was diagnosed with MRSA bacteremia and Enterococcus faecalis that was ampicillin sensitive. non-complicated likely secondary to his tongue as a source was never fully identified. At that time patient also had C. difficile colitis. Patient was discharged on IV vancomycin and oral vancomycin at [facility] to treat through August 2016 but apparently patient was supposed to get a REBEKAH done as an outpatient and follow-up with us in clinic. Patient did not have the REBEKAH done and did not follow-up with us in clinic not sure how she was treated. She came in a year later in July 2014 with shortness of breath workup at that time was significant for pleural effusion was discharged home. CC: Danielle St MD Past Med Surg Social Fam HX - Past Medical History Medical history: diabetes, GERD, hyperlipidemia, other (BKA right due to osteomyelitis of right foot from a wound) Additional medical history: hemangioma on liver. Psychiatric history: anxiety, depression - Past Surgical History Surgical History: cholecystectomy, other Additional surgical history: Right BKA - Social History Smoking Status: Former smoker Smokeless Tobacco Status: No Alcohol use: none Drug use: none - Family History Father Living Status: Hx Family Cardiac Disorders: Yes ([place]) Hx Family Endocrine Disorder: Yes Mother Living Status: Hx Family Cardiac Disorders: Yes Hx Family Respiratory Disorders: No Hx Family Cancer: Yes Hx Family GI Disorders: No Hx Family Endocrine Disorder: No Hx Family Neuromuscular Disorders: No Hx Family Neurologic Disorders: No Hx Family HEENT Disorders: No Hx Family Autoimmune Disorders: No Infectious Disease-CN:Meds RX: Sertraline [Zoloft] 100 mg PO DAILY 10/15/14 [History] RX: Omeprazole [PriLOSEC] 20 mg PO DAILY 06/19/16 [History] RX: Insulin Aspart Prot/Insuln Asp [Novolog Mix 70-30 Vial] 80 unit SQ BID 08/03/17 [History] RX: OxyCODONE/APAP 5/325 [Percocet 5/325 MG] 1 tab PO TID PRN 08/03/17 [History] Allergy/AdvReac Type Severity Reaction Status Date / Time No Known Allergies Allergy Verified 08/03/17 21:31 Exam - Constitutional Vitals: Temp Pulse Resp BP Pulse Ox 97.6 F 82 16 118/67 95 01/24/18 15:28 01/24/18 15:28 01/24/18 15:28 01/24/18 15:28 01/24/18 15:28 General appearance: no acute distress, no febrile - Head Head exam: Present: atraumatic, normocephalic - Respiratory Respiratory exam: Present: CTAB. Absent: wheezes - Cardiovascular Cardiovascular exam: Present: RRR, +S1, +S2 - GI/Abdominal GI/Abdominal exam: Present: soft. Absent: tenderness - Extremities Exam Additional comments: Right BKA stump intact Left foot with a stage I or 2 ulcer debrided with no surrounding erythema or drainage. Infectious Disease CN: Results - Labs CBC & Chem 7: 01/24/18 05:47 01/24/18 05:47 Cultures: Cultures 01/23/18 17:22 Gram Stain - Preliminary Left Foot 01/22/18 19:06 Blood Culture - Preliminary Peripheral Venipuncture Culture is incubating and being continuously monitored for growth. Final report to follow. 01/22/18 19:06 Blood Culture - Preliminary Peripheral Venipuncture Culture is incubating and being continuously monitored for growth. Final report to follow. Consult Discharge Plan - Plan Referrals: Almas Ac DO [Primary Care Provider] - 01/31/18 2:00 pm (Please follow up as schedule...)
[2018-01-24] MEDS ORDERED: Ipratropium/Albuterol Neb 3 ML IH PRN (20:55)
[2018-01-24] MEDS ORDERED: Insulin DETEMIR 100 UNIT/ML X5UNITS SQ SCH (21:00)
[2018-01-25 01:06] LABS: Hematocrit 42.8 % (35.3-44.9); Hemoglobin 13.2 g/dL (11.5-15.4); Mean Corpuscular HGB Conc 30.8 g/dL (31.6-35.5); Mean Corpuscular Hemoglobin 23.9 pg (28.0-33.3); Mean Corpuscular Volume 77.4 fL (83.0-100.0); Platelet Count 193 K/mcL (140-400); Red Blood Count 5.53 M/mcL (3.82-4.97); Red Cell Distribution Width 15.7 % (11.5-14.5)
[2018-01-25 01:26] LABS: BUN/Creatinine Ratio 35 (6-26); Blood Urea Nitrogen 17 mg/dL (6-20); Calcium 8.9 mg/dL (8.6-10.3); Carbon Dioxide 25 mEq/L (23-29); Chloride 101 mEq/L (98-107); Glucose 320 mg/dL (70-105); Osmolality,Calculated 296 (280-300); Potassium 3.9 mEq/L (3.5-5.1); Sodium 136 mEq/L (136-145); eGFR For Non-African Americans > 60 (> 60)
[2018-01-25] MEDS: *HR* Heparin 5,000 UNIT/ML VIAL SQ SCH ×3 (05:50→20:26)
[2018-01-25] MEDS: Insulin LISPRO 300 UNITS/3 ML VIAL SQ SCH ×4 (08:25→20:26)
[2018-01-25] MEDS: Furosemide 20 MG TABLET PO SCH (08:25)
[2018-01-25] MEDS: Lactobacillus 1 EACH CAP.SPRINK PO SCH (08:25)
--- NOTE | 2018-01-25 10:32 | Cardiology Consult Note ---
<Eulalio Mehta - Last Filed: 01/25/18 10:23> Date of Encounter: 01/25/18 Time of Encounter: 10:23 Assessment and Plan (1) Congestive heart failure Current Visit: No Status: Acute TTE reveals EF 55%, right sided CHF, and RV pressure overload likely from PAH secondary to known liver mass. Findings reviewed with patient. Agree with diuresis. Reports no significant symptoms at this time. Can consider thoracentesis of no resolution of pleural effusion. ED CXR showed pulmonary edema. F/u chest CT shows moderate right pleural effusion with compressive atelectasis. No PE. Noted that CAD seen of CT. She is asymptomatic. Consider out-pt stress test. Low sodium diet reviewed. Out-pt f/u with [facility] for further evaluation and treatment. Qualifiers: Heart failure type: right-sided Heart failure chronicity: acute on chronic Qualified Code(s): I50.813 - Acute on chronic right heart failure (2) Liver mass, right lobe Current Visit: Yes Status: Acute Per primary team. Recommend out-pt f/u at [facility]. Discussion w patient/family: The assessment and plan as outlined above was discussed with the patient and/or family members who expressed understanding and agreement. All questions were answered. Thank you for involving us in the care of your patient. Please call with any questions. History of Present Illness Consult date: 01/25/18 Requesting physician: Danielle St Consult reason: PAH, right sided CHF Chief complaint: Foot wound History of present illness: Ms. Anthony Cook is a 57 year old female with past medical history significant for DM, RBKA, HLD, and liver hemangioma that is being followed by [facility]. She presented to ED due to concern of foot ulcer on her left foot. Denies chest pain or SOB. Denies palpitations. C/o dry cough developing in the ED. CXR was completed and she was found to have pulmonary edema and was given lasix. She denies history of CHF but was given lasix during recent hospital stay for PNA. Today she states she is feeling fine with no SOB, edema, orthopnea, or PND. TTE completed dis showed EF 55%, mod RV dilation with mild hypokenesis, D shaped septum consistent with RV pressure overload. Findings are new compared to prior echo completed 07/2016. Cardiology consulted for right sided CHF. Past Med Surg Social Fam HX - Past Medical History Medical history: diabetes, GERD, hyperlipidemia, other (BKA right due to osteomyelitis of right foot from a wound) Additional medical history: hemangioma on liver. Psychiatric history: anxiety, depression - Past Surgical History Surgical History: cholecystectomy, other Additional surgical history: Right BKA - Social History Smoking Status: Former smoker Smokeless Tobacco Status: No Alcohol use: none Drug use: none - Family History Mother Living Status: Hx Family Cardiac Disorders: Yes Hx Family Respiratory Disorders: No Hx Family Cancer: Yes Hx Family GI Disorders: No Hx Family Endocrine Disorder: No Hx Family Neuromuscular Disorders: No Hx Family Neurologic Disorders: No Hx Family HEENT Disorders: No Hx Family Autoimmune Disorders: No Father Living Status: Hx Family Cardiac Disorders: Yes ([place]) Hx Family Endocrine Disorder: Yes Medications and Allergies Sertraline [Zoloft] 100 mg PO DAILY 10/15/14 [History] Omeprazole [PriLOSEC] 20 mg PO DAILY 06/19/16 [History] Insulin Aspart Prot/Insuln Asp [Novolog Mix 70-30 Vial] 80 unit SQ BID 08/03/17 [History] OxyCODONE/APAP 5/325 [Percocet 5/325 MG] 1 tab PO TID PRN 08/03/17 [History] Allergy/AdvReac Type Severity Reaction Status Date / Time No Known Allergies Allergy Verified 08/03/17 21:31 All Systems Review: The remainder of the systems were reviewed and are negative Physical Examination Vital Signs, Last 4 Hours Temp Pulse Resp BP Pulse Ox 01/25/18 07:03 98.1 F 84 16 118/74 90 General: Conversant, No Apparent Distress HEENT: Atraumatic, Normocephaly, Mucus Membranes Moist Neck: No JVD, Normal carotid pulses Cardiac: Reg Rate and Rhythm, Normal S1 and S2, No Murmur Lungs: Normal Breath Sounds, No Wheeze, Rales, Rhonchi Neuro: Alert and responsive, No focal deficits noted Abdomen: Soft, Non-Tender, Other (large and round) Skin: No rashes noted on visualized skin Musculoskeletal: No Chest Wall Tenderness Extremities: No Clubbing, No Cyanosis, No Edema, Normal Pulses, Other (RBKA, scabbed areas LLE. Laft hand fingers amputated) Results 01/25/18 00:45 01/25/18 00:45 Lab Results 01/25/18 11 00:45 00:45 WBC 9.0 Hgb 13.2 Hct 42.8 Plt Count 193 Sodium 136 Potassium 3.9 Chloride 101 Carbon Dioxide 25 BUN 17 Creatinine 0.48 L Glucose 320 H Calcium 8.9 - Imaging and Cardiology Echo: report reviewed - EKG Interpretation EKG results cardiology: personally reviewed Consult Discharge Plan - Plan Additional Instructions: Follow up in wound clinic with Dr. Lenz. Please make appointment prior to D/C. Referrals: Almas Ac DO [Primary Care Provider] - 01/31/18 2:00 pm (Please follow up as schedule...) Stone Lenz DPM [Partnered Physician] - <Angel Elkins A - Last Filed: 01/25/18 15:27> Date of Encounter: 01/25/18 - Attending Attestation I have personally performed a face to face evaluation on this patient. I have reviewed and agree with the documented findings and care plan as documented by the MEASUREMENT SUPERINTENDENT. History and Exam by me shows: 57-year-old female with history of hepatic hemangioma followed at [facility], admitted for left foot. Osteomyelitis found to have on CTA, moderate right pleural effusion and associated likely dependent/compressive atelectasis to right lower lobe, improved from prior CT chest 10/17/2017. She denies shortness of breath at this time. Not requiring oxygen therapy. Echo shows normal EF with evidence of right ventricular pressure overload and pulmonary hypertension. Agree with diuresis with Lasix. Needs follow-up for management of pulmonary hypertension Angel Brown MD Assessment and Plan Discussion w patient/family: The assessment and plan as outlined above was discussed with the patient and/or family members who expressed understanding and agreement. All questions were answered. Thank you for involving us in the care of your patient. Please call with any questions. History of Present Illness History of present illness: Ms. Anthony Cook is a 57 year old female All Systems Review: The remainder of the systems were reviewed and are negative Results 01/25/18 00:45 01/25/18 00:45 Lab Results 01/25/18 01/25/18 00:45 00:45 WBC 9.0 Hgb 13.2 Hct 42.8 Plt Count 193 Sodium 136 Potassium 3.9 Chloride 101 Carbon Dioxide 25 BUN 17 Creatinine 0.48 L Glucose 320 H Calcium 8.9
--- NOTE | 2018-01-25 11:44 | Infectious Disease Progress No ---
Date of Encounter: 01/25/18 Time of Encounter: 09:20 - Assessment and Plan (1) Ulcer of left foot Current Visit: Yes Status: Acute - Status post debridement by podiatry service. - X-ray with no obvious osteomyelitis - Wound appears superficial so I am not that concerned but ESR is 85 which makes little bit anxious. Especially with the fact that the patient already has a right BKA so a deep infection on the left side could have detrimental consequences. - Per podiatry note, there is minimal indication for an MRI at this time as the wound did not appear infected - Cultures are pending but Gram stain is showing also gram-positive cocci, await final cultures and susceptibilities to make further recommendations on antibiotics and duration. - Monitor labs and for drug toxicity - Goal vancomycin trough 10-15 Plan - Continue vancomycin, Zosyn day #3 - Await culture results for further antibiotic recommendations Qualifiers: Non-pressure ulcer stage: limited to breakdown of skin Qualified Code(s): L97.521 - Non-pressure chronic ulcer of other part of left foot limited to breakdown of skin (2) History of MRSA infection Current Visit: Yes Status: Acute (3) Diabetes mellitus type 2 in nonobese Current Visit: Yes Status: Acute Poorly controlled with A1c of 12.1% Management per primary team and outpatient provider (4) History of Clostridium difficile colitis Current Visit: Yes Status: Chronic Patient is not complaining of diarrhea this morning Reported 2 episodes of loose bowel movements yesterday She tells me that when she had C. difficile was severe diarrhea and so much di fferent than her baseline. I told the patient that if she has more than 3 watery bowel movements a day we have to check her for C. difficile. Continue to monitor closely specially with history of C. difficile and is currently on antibiotics. - Subjective Interval history: Patient was seen and examined up and since morning. She states that overall she is feeling well without any complaints of fevers, chills, chest pain, shortness breath, nausea, vomiting. She states that her left foot wound is not painful at this time and she has not noticed any drainage. Denies any erythema in the legs or rashes. Infect Dis PN-Objective Data - Labs CBC & Chem 7: 01/25/18 00:45 01/25/18 00:45 Labs: Laboratory Results - last 24 hr 01/24/18 01/24/1818 07:00 11:16 15:26 WBC RBC Hgb Hct MCV MCH MCHC RDW Plt Count MPV Sodium Potassium Chloride Carbon Dioxide BUN Creatinine Est GFR ( Amer) Est GFR (Non-Af Amer) BUN/Creatinine Ratio Glucose POC Glucose 319 H 279 H 201 H Calculated Osmolality Calcium Vancomycin Trough 01/24/18 01/25/18 01/25/18 20:10 00:45 00:45 WBC 9.0 RBC 5.53 H Hgb 13.2 Hct 42.8 MCV 77.4 L MCH 23.9 L MCHC 30.8 L RDW 15.7 H Plt Count 193 MPV 10.0 Sodium 136 Potassium 3.9 Chloride 101 Carbon Dioxide 25 BUN 17 Creatinine 0.48 L Est GFR ( Amer) > 60 Est GFR (Non-Af Amer) > 60 BUN/Creatinine Ratio 35 H Glucose 320 H POC Glucose 311 H Calculated Osmolality 296 Calcium 8.9 Vancomycin Trough 01/25/18 00:45 WBC RBC Hgb Hct MCV MCH MCHC RDW Plt Count MPV Sodium Potassium Chloride Carbon Dioxide BUN Creatinine Est GFR ( Amer) Est GFR (Non-Af Amer) BUN/Creatinine Ratio Glucose POC Glucose Calculated Osmolality Calcium Vancomycin Trough 11 H Cultures: Cultures 01/23/18 17:22 Gram Stain - Preliminary Left Foot 01/22/18 19:06 Blood Culture - Preliminary Peripheral Venipuncture Culture is incubating and being continuously monitored for growth. Final report to follow. 01/22/18 19:06 Blood Culture - Preliminary Peripheral Venipuncture Culture is incubating and being continuously monitored for growth. Final report to follow. - Impressions Impressions Chest CTA 01/24/18 13:24 IMPRESSION: Negative study for pulmonary embolism. Moderate right pleural effusion and associated likely dependent/compressive atelectasis to right lower lobe, improved from prior CT chest 10/17/2017. Atherosclerosis to include coronary artery disease. D/ / 01/24/2018 14:20:35 Wes Francisco MD / [facility] Interpreting Provider: Wes Francisco MD Exam - Constitutional Vitals: Temp Pulse Resp BP Pulse Ox 97.7 F 85 16 122/68 92 01/25/18 11:18 01/25/18 11:18 01/25/18 11:18 01/25/18 11:18 01/25/18 11:18 Exam: Gen.: Vitals noted. No acute distress. AAOx3 HEENT: PERRL/EOMI, oropharynx clear, Normocephalic, atraumatic, MMM Cardiac: RRR, no murmur, +S1/S2 Pulmonary: CTA bilaterally, no wheezes, rales or rhonchi, equal chest expansion Abdomen: soft, nontender, BS noted, no guarding, no rebound. MSK: no joint swelling noted. Extremities: no BLE edema, left hand with multiple digits missing, well-healed. Left lower extremity with punctate ulcer on plantar surface distally. Evidence of dried bleeding but no purulent discharge. No redness, swelling. Right BKA Neuro: A&Ox3, moves all extremities, no focal deficits Psych: Appropriate mood and behavior Consult Discharge Plan - Plan Additional Instructions: Follow up in wound clinic with Dr. Lenz. Please make appointment prior to D/C. Referrals: Almas Ac DO [Primary Care Provider] - 01/31/18 2:00 pm (Please follow up as schedule...) Stone Lenz DPM [Partnered Physician] - - Attending Attestation I examined this patient and my medical decision-making was reviewed with the Resident Physician. I agree with the documented findings, disposition and treatment plan as described except to the extent set forth below.
--- NOTE | 2018-01-25 12:24 | Internal Med Progress Note ---
Hospitalist Progress Note - Encounter Date of Encounter: 01/25/18 Time of Encounter: 08:00 - Subjective Interval History: she was seen and examined at bedside. has no new complaints, breathing has improved. had 2 loose BM yesterday however reports that is normal for her. denies watery diarrhea. has had Cdif previously and reports that her stools where not similar to the time had Cdif. denies fever, chills, N/v/D, chest pain, SOB, palpitations. - Exam Vitals: Temp Pulse Resp BP Pulse Ox 97.7 F 85 16 122/68 92 01/25/18 11:18 01/25/18 11:18 01/25/18 11:18 01/25/18 11:18 01/25/18 11:18 Exam: General: Patient is alert, oriented, no acute distress, Head: atraumatic, normocephalic, Eye: normal appearance, PERRL, no scleral icterus, no conjunctival injection ENT: mucous membranes moist, normal external ear exam Neck: normal inspection, trachea midline, full ROM, no carotid bruits Chest: normal inspection, symmetric chest rise Respiratory: Good respiratory effort. Bilateral breath sounds are clear without wheezing, crackles, or rhonchi. Cardiovascular: Regular rate and rhythm. s1 and s2 No clicks, rubs, gallops, or murmors. Abdomen: Bowel sounds present normoactive x-4 quadrants. Abdomen is soft, distended. no Epigastric tenderness. No guarding or rebound. No organomegaly noted, obese musculoskeletal: Spontaneously moving all extremities. has right sided BKA no edema, no calf tenderness Skin: warm, dry, intact. LLE is wrapped in clean dressing. Neuro: Alert and oriented x4. Sensation light touch intact. Cranial nerves 2- 12 is intact. no focal deficit Psych: Patient's affect is normal - Assessment and Plan (1) Diabetic foot ulcer Current Visit: No Status: Chronic Assessment and Plan: LLE ulcer s/p debridement no drainage, no odor, no sinus tracts or undermining as per podiatry wound cx- growing gram positive cocci ESR 89, CRP 42 lactic acid 1.2 JULIANA- pending A1c 01/23/18- 12.1 podiatry and ID on board ?MRI of the LLE on hold as per podiatry however she does have elevated ESR ( will discuss with ID and podiatry- as she has a right sided BKA) pain control on vancomycin wound care as per podiatry will send C.Dif if she develops 3 x watery diarrhea (2) Bilateral pleural effusion Current Visit: Yes Status: Acute Assessment and Plan: was given lasix 40 mg IV - will continue with 20mg daily Echocardiogram - LVEF 55%. Normal LV chamber size, wall thickness and systolic function. Moderately dilated right ventricle with mild hypokinesis. Persistent D-shape septum consistent with RV pressure overload, pulmonary hypertension. no WBC count or fever will hold off of Abx for now cardiology on board will follow recommendations (3) Pulmonary hypertension Current Visit: Yes Status: Acute Assessment and Plan: seen on TTE on 01/23/18- Moderately dilated right ventricle with mild hypokin esis. Persistent D-shape septum consistent with RV pressure overload, pulmonary hypertension. continue oxygen via nasal cannula Duo-nebs CTPA negative for PE will need OP Pulmonology follow up CTPA: IMPRESSION: Negative study for pulmonary embolism. Moderate right pleural effusion and associated likely dependent/compressive atelectasis to right lower lobe, improved from prior CT chest 10/17/2017. Atherosclerosis to include coronary artery disease. (4) IDDM (insulin dependent diabetes mellitus) Current Visit: Yes Status: Acute Assessment and Plan: uncontrolled A1c is 12.1 on 01/23 will increase levemir to 30 units along with high dose sliding scale strict glucose control (5) Hyperlipidemia Current Visit: Yes Status: Acute Assessment and Plan: was counseled on diet for PCP to follow lipid panel started on statins (6) Liver mass, right lobe Current Visit: Yes Status: Acute Assessment and Plan: as per patient sh has ascites in the setting of a liver hemangioma which is being followed closely at [facility] will get records from [facility] (7) DVT prophylaxis Current Visit: No Status: Acute Assessment and Plan: heparin sc - Time Spent with Patient Total time spent is greater than 50% in coordination of care (as documented) at patient's floor/unit and/or counseling patient: Internal Medicine: Result - Labs CBC & Chem 7: 01/25/18 00:45 01/25/18 00:45 Labs: Short CBC 01/25/18 Range/Units 00:45 WBC 9.0 (4.3-11.1) K/mcL Hgb 13.2 (11.5-15.4) g/dL Hct 42.8 (35.3-44.9) % Plt Count 193 (140-400) K/mcL BMP 01/25/18 00:45 Sodium 136 Potassium 3.9 Chloride 101 Carbon Dioxide 25 BUN 17 Creatinine 0.48 L Glucose 320 H Calcium 8.9 - ABG Interpretation ABG results: PT/INR, D-dimer PT 14.2 Seconds (9.4-12.1) H 01/23/18 05:40 - Impressions Impressions Chest CTA 01/24/18 13:24 IMPRESSION: Negative study for pulmonary embolism. Moderate right pleural effusion and associated likely dependent/compressive atelectasis to right lower lobe, improved from prior CT chest 10/17/2017. Atherosclerosis to include coronary artery disease. D/ / 01/24/2018 14:20:35 Wes Francisco MD / [facility] Interpreting Provider: Wes Francisco MD Consult Discharge Plan - Plan Referrals: Almas Ac DO [Primary Care Provider] - 01/31/18 2:00 pm (Please follow up as schedule...) (1) Diabetic foot ulcer Qualifiers: Diabetic foot ulcer location: midfoot Diabetes mellitus type: type 2 Lat erality: left Non-pressure ulcer stage: limited to breakdown of skin Qualified Code(s): E11.621 - Type 2 diabetes mellitus with foot ulcer; L97.421 - Non- pressure chronic ulcer of left heel and midfoot limited to breakdown of skin (5) Hyperlipidemia Qualifiers: Hyperlipidemia type: mixed hyperlipidemia Qualified Code(s): E78.2 - Mixed hyperlipidemia
--- NOTE | 2018-01-25 12:46 | Podiatry Progress Note ---
Date of Encounter: 01/25/18 Time of Encounter: 12:30 - Assessment and Plan (1) IDDM (insulin dependent diabetes mellitus) Current Visit: Yes Status: Acute Patient HGB A1C 12.1 on 01/24. Blood glucose levels in hospital running in the 300s. Patient currently on high dose regimen and receiving 30 units of lantus daily. Primary managing. Recommend -Tight glycemic control while in hospital to promote wound healing. (2) Ulcer of left foot Current Visit: Yes Status: Acute Hyperkeratosis with hematoma ulceration, debrided 01/24/19. WBC 9.0 today ESR 89, CRP 42 on 01/23 Wound cultures, anaerobic cultures, and gram stain sent on 01/23- pending results Blood cultures sent 01/22- pending results. ID managing ATB. Dressing changed. No edema, no erythema, no streaking, no foul odor, no drainage noted. Please have nursing change daily. Cleanse with normal saline, apply adaptic, 4x4 dry gauze, and kerlex. Xray negative for OM. ABIs ordered and completed 01/23 per [facility], no preliminary note posted, no report posted at this time. Recommendations -Patient will need post op shoe prior to D/C. -Offload left foot -Follow up with Dr. Lenz in wound care center. Qualifiers: Non-pressure ulcer stage: limited to breakdown of skin Qualified Code(s): L97.521 - Non-pressure chronic ulcer of other part of left foot limited to breakdown of skin Subjective Interval history: Patient lying in bed. Awake, alert and oriented x 3. Patient denies any fevers, chills, nausea, diarrhea, or pain. Denies any overnight complications. Objective - Vital Signs Vital Signs: Vital Signs Temp Pulse Resp BP Pulse Ox 01/25/18 11:18 97.7 F 85 16 122/68 92 01/25/18 07:03 98.1 F 84 16 118/74 90 01/25/18 04:28 98.0 F 85 13 111/68 92 01/25/18 00:53 98.4 F 81 13 115/57 95 01/24/18 20:05 98.1 F 87 12 108/63 93 01/24/18 15:28 97.6 F 82 16 118/67 95 Intake and Output 01/24/18 01/25/18 01/25/18 23:59 07:59 15:59 Intake Total 360 / 360 240 / 240 Balance 360 / 360 240 / 240 Intake: Oral 360 / 360 240 / 240 Other: Meal Dinner Breakfast Percent of Meal Consumed 50% 100% # Voids 2 Weight 83.6 kg Blood Glucose* 311 346 335 Patient Weight 01/25/18 23:59 Weight 83.6 kg - Exam Exam: Constitiutional: Alert and oriented x 3. Vascular: 2/4 DP/PT left foot, CFT <3 sec to all digits left foot, warm to warm from tibia to toes left foot, R BKA Neurologic: Sensation to touch, normal plantar response Dermatologic: Ulcer noted to medial submetatarsal #1 left foot, no drainage noted, no erythema, no edema, no streaking, no foul odor. Musculoskeletal: 3/5 muscle strength and normal tone left foot - Lab Result Diagrams: 01/25/18 00:45 01/25/18 00:45 Labs: Abnormal lab results RBC 5.53 M/mcL (3.82-4.97) H 01/25/18 00:45 MCV 77.4 fL (83.0-100.0) L 01/25/18 00:45 MCH 23.9 pg (28.0-33.3) L 01/25/18 00:45 MCHC 30.8 g/dL (31.6-35.5) L 01/25/18 00:45 RDW 15.7 % (11.5-14.5) H 01/25/18 00:45 ESR 89 mm/hr (0-15) H 01/23/18 05:40 PT 14.2 Seconds (9.4-12.1) H 01/23/18 05:40 Creatinine 0.48 mg/dL (0.60-1.20) L 01/25/18 00:45 BUN/Creatinine Ratio 35 (6-26) H 01/25/18 00:45 Glucose 320 mg/dL (70-105) H 01/25/18 00:45 POC Glucose 311 mg/dL (70-99) H 01/24/18 20:10 Hemoglobin A1c 12.1 % (-5.6) H 01/24/18 05:47 Alkaline Phosphatase 169 Units/L (34-104) H 01/22/18 19:06 C-Reactive Protein 42 mg/L (Less than 10) H 01/23/18 05:40 Globulin 3.6 g/dL (2.4-3.5) H 01/22/18 19:06 Triglycerides 385 mg/dL (< 150) H 01/23/18 05:40 Cholesterol 255 mg/dL (< 200) H 01/23/18 05:40 LDL Cholesterol, Calc 142 mg/dL (0-99) H 01/23/18 05:40 VLDL Cholesterol, Calc 77 mg/dL (< 31) H 01/23/18 05:40 HDL Cholesterol 36 mg/dL (40-59) L 01/23/18 05:40 Cholesterol/HDL Ratio 7.1 (0-4.9) H 01/23/18 05:40 Vancomycin Trough 11 mcg/mL (5-10) H 01/25/18 00:45 Microbiology, Last 48 Hours 01/23/18 17:22 Gram Stain - Final Left Foot Consult Discharge Plan - Plan Additional Instructions: Follow up in wound clinic with Dr. Lenz. Please make appointment prior to D/C. Referrals: Almas Ac DO [Primary Care Provider] - 01/31/18 2:00 pm (Please follow up as schedule...) Stone Lenz DPM [Partnered Physician] -
[2018-01-25] MEDS: Insulin DETEMIR 100 UNIT/ML X5UNITS SQ SCH (20:27)
[2018-01-26] MEDS: *HR* Heparin 5,000 UNIT/ML VIAL SQ SCH ×3 (04:20→21:11)
[2018-01-26 05:40] LABS: Hematocrit 40.7 % (35.3-44.9); Hemoglobin 12.5 g/dL (11.5-15.4); Mean Corpuscular HGB Conc 30.7 g/dL (31.6-35.5); Mean Corpuscular Volume 78.3 fL (83.0-100.0); Mean Platelet Volume 10.2 fL (9.4-12.4); Platelet Count 158 K/mcL (140-400); Red Cell Distribution Width 15.3 % (11.5-14.5)
[2018-01-26 06:26] LABS: BUN/Creatinine Ratio 28 (6-26); Blood Urea Nitrogen 12 mg/dL (6-20); Calcium 8.8 mg/dL (8.6-10.3); Carbon Dioxide 25 mEq/L (23-29); Chloride 104 mEq/L (98-107); Glucose 365 mg/dL (70-105); Osmolality,Calculated 297 (280-300); Potassium 3.8 mEq/L (3.5-5.1); Sodium 136 mEq/L (136-145); eGFR For Non-African Americans > 60 (> 60)
[2018-01-26] MEDS: Insulin LISPRO 300 UNITS/3 ML VIAL SQ SCH ×4 (08:19→21:12)
[2018-01-26] MEDS: Furosemide 20 MG TABLET PO SCH (09:11)
[2018-01-26] MEDS: Lactobacillus 1 EACH CAP.SPRINK PO SCH (09:11)
--- NOTE | 2018-01-26 10:25 | Podiatry Progress Note ---
Date of Encounter: 01/26/18 Time of Encounter: 08:00 - Assessment and Plan (1) IDDM (insulin dependent diabetes mellitus) Current Visit: Yes Status: Acute Patient HGB A1C 12.1 on 01/24. Blood glucose levels in hospital running in the 300s. Patient currently on high dose regimen and receiving 30 units of lantus daily. Primary managing. Discussed controlling blood glucose levels at home as well. Patient states they are not as high at home as they have been in the hospital. Recommend -Tight glycemic control while in hospital to promote wound healing. (2) Ulcer of left foot Current Visit: Yes Status: Acute Hyperkeratosis with hematoma ulceration, debrided 01/24/19. WBC 7.6 today ESR 89, CRP 42 on 01/23 Wound cultures, anaerobic cultures, and gram stain sent on 01/23- wound culture and gram stain show gram positive cocci Blood cultures sent 01/22- pending results. ID managing ATB. Dressing changed. No edema, no erythema, no streaking, no foul odor, no drainage noted, no probe to bone. Please have nursing change daily. Cleanse with normal saline, apply adaptic, 4x4 dry gauze, and kerlex. Xray negative for OM. ABIs ordered, spoke with tech, they have not been completed at this time. To be completed today. Recommendations -Postoperative shoe ordered-please have patient wear. -Offload left foot -Follow up with Dr. Lenz in wound care center. Qualifiers: Non-pressure ulcer stage: limited to breakdown of skin Qualified Code(s): L97.521 - Non-pressure chronic ulcer of other part of left foot limited to breakdown of skin Subjective Interval history: Patient lying in bed. Awake, alert and oriented x 3. Eating breakfast. Patient denies any fevers, chills, nausea, diarrhea, or pain. Denies any overnight complications. Patient states she would like to go home today. Objective - Vital Signs Vital Signs: Vital Signs Temp Pulse Resp BP Pulse Ox 01/26/18 07:12 98.0 F 78 16 137/72 93 01/26/18 04:02 97.5 F L 80 18 136/78 92 01/26/18 00:15 98.4 F 83 18 124/69 93 01/25/18 19:09 98.2 F 88 16 117/64 01/25/18 15:58 97.6 F 82 16 134/77 93 01/25/18 11:18 97.7 F 85 16 122/68 92 Intake and Output 01/25/18 01/26/18 01/26/18 23:59 07:59 15:59 Output Total 300 / 300 600 / 600 Balance -300 / -300 -600 / -600 Output: Urine 300 / 300 600 / 600 Other: # Voids 1 1 Weight 84.4 kg Blood Glucose* 335 296 Patient Weight 01/26/18 23:59 Weight 84.4 kg - Exam Exam: Constitiutional: Alert and oriented x 3. Vascular: 2/4 DP/PT left foot, CFT <3 sec to all digits left foot, warm to warm from tibia to toes left foot, R BKA Neurologic: Sensation to touch, normal plantar response Dermatologic: Ulcer noted to medial submetatarsal #1 left foot, no drainage noted, no erythema, no edema, no streaking, no foul odor. Musculoskeletal: 3/5 muscle strength and normal tone left foot - Lab Result Diagrams: 01/26/18 05:21 01/26/18 05:21 Labs: Abnormal lab results RBC 5.20 M/mcL (3.82-4.97) H 01/26/18 05:21 MCV 78.3 fL (83.0-100.0) L 01/26/18 05:21 MCH 24.0 pg (28.0-33.3) L 01/26/18 05:21 MCHC 30.7 g/dL (31.6-35.5) L 01/26/18 05:21 RDW 15.3 % (11.5-14.5) H 01/26/18 05:21 ESR 89 mm/hr (0-15) H 01/23/18 05:40 PT 14.2 Seconds (9.4-12.1) H 01/23/18 05:40 Creatinine 0.43 mg/dL (0.60-1.20) L 01/26/18 05:21 BUN/Creatinine Ratio 28 (6-26) H 01/26/18 05:21 Glucose 365 mg/dL (70-105) H 01/26/18 05:21 POC Glucose 296 mg/dL (70-99) H 01/26/18 07:11 Hemoglobin A1c 12.1 % (-5.6) H 01/24/18 05:47 Alkaline Phosphatase 169 Units/L (34-104) H 01/22/18 19:06 C-Reactive Protein 42 mg/L (Less than 10) H 01/23/18 05:40 Globulin 3.6 g/dL (2.4-3.5) H 01/22/18 19:06 Triglycerides 385 mg/dL (< 150) H 01/23/18 05:40 Cholesterol 255 mg/dL (< 200) H 01/23/18 05:40 LDL Cholesterol, Calc 142 mg/dL (0-99) H 01/23/18 05:40 VLDL Cholesterol, Calc 77 mg/dL (< 31) H 01/23/18 05:40 HDL Cholesterol 36 mg/dL (40-59) L 01/23/18 05:40 Cholesterol/HDL Ratio 7.1 (0-4.9) H 01/23/18 05:40 Vancomycin Trough 11 mcg/mL (5-10) H 01/25/18 00:45 Microbiology, Last 48 Hours 01/23/18 17:22 Wound Culture - Preliminary Left Foot Gram Positive Cocci 01/23/18 17:22 Gram Stain - Final Left Foot Consult Discharge Plan - Plan Additional Instructions: Follow up in wound clinic with Dr. Lenz. Please make appointment prior to D/C. Referrals: Almas Ac DO [Primary Care Provider] - 01/31/18 2:00 pm (Please follow up as schedule...) Stone Lenz DPM [Partnered Physician] -
--- NOTE | 2018-01-26 10:37 | Internal Med Progress Note ---
<Merary Berger - Last Filed: 01/26/18 16:02> Hospitalist Progress Note - Encounter Date of Encounter: 01/26/18 - Exam Vitals: Temp Pulse Resp BP Pulse Ox 97.6 F 80 16 139/78 95 01/26/18 15:57 01/26/18 15:57 01/26/18 15:57 01/26/18 15:57 01/26/18 15:57 - Assessment and Plan (1) Diabetic foot ulcer Current Visit: No Status: Chronic (2) DVT prophylaxis Current Visit: No Status: Acute (3) Bilateral pleural effusion Current Visit: Yes Status: Acute (4) IDDM (insulin dependent diabetes mellitus) Current Visit: Yes Status: Acute (5) Hyperlipidemia Current Visit: Yes Status: Acute (6) Pulmonary hypertension Current Visit: Yes Status: Acute (7) Liver mass, right lobe Current Visit: Yes Status: Acute - Time Spent with Patient Total time spent is greater than 50% in coordination of care (as documented) at patient's floor/unit and/or counseling patient: Internal Medicine: Result - Labs CBC & Chem 7: 01/26/18 05:21 01/26/18 05:21 Labs: Short CBC 01/26/18 Range/Units 05:21 WBC 7.6 (4.3-11.1) K/mcL Hgb 12.5 (11.5-15.4) g/dL Hct 40.7 (35.3-44.9) % Plt Count 158 (140-400) K/mcL BMP 01/26/18 05:21 Sodium 136 Potassium 3.8 Chloride 104 Carbon Dioxide 25 BUN 12 Creatinine 0.43 L Glucose 365 H Calcium 8.8 - ABG Interpretation ABG results: PT/INR, D-dimer PT 14.2 Seconds (9.4-12.1) H 01/23/18 05:40 Consult Discharge Plan - Plan Additional Instructions: Follow up in wound clinic with Dr. Lenz. Please make appointment prior to D/C. Referrals: Almas Ac DO [Primary Care Provider] - 01/31/18 2:00 pm (Please follow up as schedule...) Stone Lenz DPM [Partnered Physician] - - Attending Attestation I examined this patient and my medical decision-making was reviewed with the Resident Physician Dr Mcmullen. I agree with the documented findings, disposition and treatment plan as described except to the extent set forth below/addl details below. Ms Cruz is admitted with diabetic foot ulcer being followed by podiatry and ID. She has incidental mod right pleural effusion, asx, with hx of liver mass followed at [facility] and hx right sided effusion in past, improved from cT in October. awake, alert, walking in room. no fevers, chills, n/v. no aob at rest or with exertion, no orthpnea or pnd, no cough. gen- alert, awake,appears stated age cv- reg rate and rhythm, normal s1,s2, no murmurs appreciated, no le edema lungs- ctabl, no wheezing, rhonchi , right basilar crackles, normal resp effort on ra msk- right leg BKA skln- left foot dressing c/d/i neuro- AAOx3 Left Foor Ulcer- podiatry following, debridement 01/24, cxs gpc and pending, ID following- cont iv vanc Xray negative for OM. ABIs ordered, pending -Follow up with Dr. Lenz in wound care center upon dc -monitor for diarrhea given c diff hx DM, with untrolled bs- levemir adjusted and SSI adjusted yesterday- monitor bs today and adjsut further in am Mod R Pleural effusion, improved from 10/2017 CT asx, hx of same, no pe, no pna CTPA: IMPRESSION: Negative study for pulmonary embolism. Moderate right pleural effusion and associated likely dependent/compressive atelectasis to right lower lobe, improved from prior CT chest 10/17/2017. Echo: TTE reveals EF 55%, right sided CHF, and RV pressure overload likely from PAH secondary to known liver mass. -on diuretic -echo obtained and cards followed- she needs outpt stress test -will need outpt pulm and cards fu and established [facility] hepatology fu -she does not appear to need thoracentesis at this time given asx and improved overall Pulm HTN continue oxygen via nasal cannula Duo-nebs CTPA negative for PE will need OP Pulmonology follow up further diagnoses and plan as documented by resident <Jonathan Mcmullen - Last Filed: 01/26/18 19:09> Hospitalist Progress Note - Encounter Date of Encounter: 01/26/18 Time of Encounter: 08:45 - Subjective Interval History: Ms. Cruz is a pleasant 57-year-old female with a past medical history of liver hemangioma with history of ascites , uncontrolled diabetes with A1c of 12.1, CHF , GERD, osteomyelitits who initially presented to the hospital with cough compounded by a left foot wound. Patient is s/p debridement for evacuation of hematoma, specifically it was hyper keratosis with associated blood found bullous lesions. Patient was initially on vancomycin and Zosyn. Zosyn was discontinued this morning because the wound cultures were positive for gram- positive cocci. Final cultures are still pending. She was in no acute distress when I saw her this morning. She denied no leg pain, the site of dressing looks clean with no bloody discharge. Patient endorses no pain. She denies any chest pain, palpitation or shortness of breath. Consider blood glucose was 365 this morning . Levemir has been adj usted. - Exam Vitals: Temp Pulse Resp BP Pulse Ox 98.0 F 78 16 137/72 93 01/26/18 07:12 01/26/18 07:12 01/26/18 07:12 01/26/18 07:12 01/26/18 07:12 Exam: General: Patient is alert, oriented, no acute distress, Head: atraumatic, normocephalic, Eye: normal appearance, PERRL, no scleral icterus, no conjunctival injection ENT: mucous membranes moist, normal external ear exam Neck: normal inspection, trachea midline, full ROM, no carotid bruits Chest: normal inspection, symmetric chest rise Respiratory: Good respiratory effort. Bilateral breath sounds are clear without wheezing, crackles, or rhonchi. Cardiovascular: Regular rate and rhythm. s1 and s2 No clicks, rubs, gallops, or murmors. Abdomen: Bowel sounds present normoactive x-4 quadrants. Abdomen is soft, distended. no Epigastric tenderness. No guarding or rebound. No organomegaly noted, obese musculoskeletal: Spontaneously moving all extremities. has right sided BKA no edema, no calf tenderness Skin: warm, dry, intact. LLE is wrapped in clean dressing. Neuro: Alert and oriented x4. Sensation light touch intact. Cranial nerves 2- 12 is intact. no focal deficit Psych: Patient's affect is normal - Assessment and Plan (1) Diabetic foot ulcer Current Visit: No Status: Chronic Assessment and Plan: - Likely due to history of uncontrolled diabetes. Patient's hemoglobin A1c was 0.1, patient takes NovoLog at home. 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 No evidence of tactile fremitus, or egophony -Currently on Lasix 20 mg PO daily - Blood count is normal. No indications for antibiotic at this point, no indications for thoracentesis at this point (3) IDDM (insulin dependent diabetes mellitus) Current Visit: Yes Status: Acute Assessment and Plan: -Patient has a history of diabetes. She was admitted with an A1c of 12.1 -Currently is a high doses of sliding scale insulin. Her levmemir has been adjusted to 30 units -Continue to monitor (4) Hyperlipidemia Current Visit: Yes Status: Acute Assessment and Plan: -History of hyperlipidemia -Continue home medications (5) Pulmonary hypertension Current Visit: Yes Status: Acute Assessment and Plan: -Likely group 2 pulmonary hypertension because of moderately dilated right ventricle with mild hypokinesis. This could partially explain why she was short of breath on admission. However currently she is on room air 95%. will need OP Pulmonology follow up - . (6) Liver mass, right lobe Current Visit: Yes Status: Acute Assessment and Plan: -Patient has a history of liver hemangioma. 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 Patient endorses that she has had ascites in the past and has had paracentesis. Her pleural effusion could be secondary to her liver hemangioma likely in the setting of hepatic hydrothorax -On physical exam patient endorses no nausea, vomiting, fatigue or right upper quadrant pain. -Continue to monitor (7) DVT prophylaxis Current Visit: No Status: Acute Assessment and Plan: heparin sc - Time Spent with Patient Total time spent is greater than 50% in coordination of care (as documented) at patient's floor/unit and/or counseling patient: Internal Medicine: Result - Labs CBC & Chem 7: 01/26/18 05:21 01/26/18 05:21 Labs: Short CBC 01/26/18 Range/Units 05:21 WBC 7.6 (4.3-11.1) K/mcL Hgb 12.5 (11.5-15.4) g/dL Hct 40.7 (35.3-44.9) % Plt Count 158 (140-400) K/mcL BMP 01/26/18 05:21 Sodium 136 Potassium 3.8 Chloride 104 Carbon Dioxide 25 BUN 12 Creatinine 0.43 L Glucose 365 H Calcium 8.8 - ABG Interpretation ABG results: PT/INR, D-dimer PT 14.2 Seconds (9.4-12.1) H 01/23/18 05:40 <Merary Berger - Last Filed: 01/26/18 16:02> (1) Diabetic foot ulcer Qualifiers: Diabetic foot ulcer location: midfoot Diabetes mellitus type: type 2 Laterality: left Non-pressure ulcer stage: limited to breakdown of skin Qualified Code(s): E11.621 - Type 2 diabetes mellitus with foot ulcer; L97.421 - Non-pressure chronic ulcer of left heel and midfoot limited to breakdown of skin (5) Hyperlipidemia Qualifiers: Hyperlipidemia type: mixed hyperlipidemia Qualified Code(s): E78.2 - Mixed h yperlipidemia <Jonathan Mcmullen - Last Filed: 01/26/18 19:09> (1) Diabetic foot ulcer Qualifiers: Diabetic foot ulcer location: midfoot Diabetes mellitus type: type 2 Laterality: left Non-pressure ulcer stage: limited to breakdown of skin Qualified Code(s): E11.621 - Type 2 diabetes mellitus with foot ulcer; L97.421 - Non-pressure chronic ulcer of left heel and midfoot limited to breakdown of skin (4) Hyperlipidemia Qualifiers: Hyperlipidemia type: mixed hyperlipidemia Qualified Code(s): E78.2 - Mixed hyperlipidemia
--- NOTE | 2018-01-26 10:52 | Infectious Disease Progress No ---
Date of Encounter: 01/26/18 Time of Encounter: 09:35 - Assessment and Plan (1) Ulcer of left foot Current Visit: Yes Status: Acute - Status post debridement by podiatry service. - X-ray with no obvious osteomyelitis - Wound appears superficial so I am not that concerned but ESR is 85 which makes little bit anxious. Especially with the fact that the patient already has a right BKA so a deep infection on the left side could have detrimental consequences. - Per podiatry note, there is minimal indication for an MRI at this time as the wound did not appear infected - Cultures and Gram stain is showing also gram-positive cocci, await final cultures and susceptibilities to make further recommendations on antibiotics and duration. - Monitor labs and for drug toxicity - Goal vancomycin trough 10-15 Plan - Continue vancomycin day #4 - Await culture results for further antibiotic recommendations Qualifiers: Non-pressure ulcer stage: limited to breakdown of skin Qualified Code(s): L97.521 - Non-pressure chronic ulcer of other part of left foot limited to breakdown of skin (2) History of MRSA infection Current Visit: Yes Status: Acute (3) Diabetes mellitus type 2 in nonobese Current Visit: Yes Status: Acute Poorly controlled with A1c of 12.1% Poor control since admission, recommend tighter glycemic control to promote healing Management per primary team and outpatient provider (4) History of Clostridium difficile colitis Current Visit: Yes Status: Chronic Patient is not complaining of diarrhea this morning Reported 2 episodes of loose bowel movements 01/24 She tells me that when she had C. difficile was severe diarrhea and so much different than her baseline. I told the patient that if she has more than 3 watery bowel movements a day we have to check her for C. difficile. Continue to monitor closely specially with history of C. difficile and is currently on antibiotics. - Subjective Interval history: Patient was seen and examined up and since morning. She states that overall she is feeling well without any complaints of fevers, chills, chest pain, shortness breath, nausea, vomiting. She states that her left foot wound is not painful at this time and she has not noticed any drainage. Denies any erythema in the legs or rashes. Infect Dis PN-Objective Data - Labs CBC & Chem 7: 01/26/18 05:21 01/26/18 05:21 Labs: Laboratory Results - last 24 hr 1101/25/18 01/25/18 07:00 11:15 15:54 WBC RBC Hgb Hct MCV MCH MCHC RDW Plt Count MPV Sodium Potassium Chloride Carbon Dioxide BUN Creatinine Est GFR ( Amer) Est GFR (Non-Af Amer) BUN/Creatinine Ratio Glucose POC Glucose 346 H 335 H 305 H Calculated Osmolality Calcium 01/26/18 01/26/18 01/26/18 00:22 04:00 05:21 WBC 7.6 RBC 5.20 H Hgb 12.5 Hct 40.7 MCV 78.3 L MCH 24.0 L MCHC 30.7 L RDW 15.3 H Plt Count 158 MPV 10.2 Sodium Potassium Chloride Carbon Dioxide BUN Creatinine Est GFR ( Amer) Est GFR (Non-Af Amer) BUN/Creatinine Ratio Glucose POC Glucose 295 H 316 H Calculated Osmolality Calcium 01/26/18 01/26/18 05:21 07:11 WBC RBC Hgb Hct MCV MCH MCHC RDW Plt Count MPV Sodium 136 Potassium 3.8 Chloride 104 Carbon Dioxide 25 BUN 12 Creatinine 0.43 L Est GFR ( Amer) > 60 Est GFR (Non-Af Amer) > 60 BUN/Creatinine Ratio 28 H Glucose 365 H POC Glucose 296 H Calculated Osmolality 297 Calcium 8.8 Cultures: Cultures 01/23/18 17:22 Wound Culture - Preliminary Left Foot Gram Positive Cocci 01/23/18 17:22 Gram Stain - Final Left Foot 01/22/18 19:06 Blood Culture - Preliminary Peripheral Venipuncture Culture is incubating and being continuously monitored for growth. Final report to follow. 01/22/18 19:06 Blood Culture - Preliminary Peripheral Venipuncture Culture is incubating and being continuously monitored for growth. Final report to follow. Exam - Constitutional Vitals: Temp Pulse Resp BP Pulse Ox 98.0 F 78 16 137/72 93 01/26/18 07:12 01/26/18 07:12 01/26/18 07:12 01/26/18 07:12 01/26/18 07:12 Exam: Gen.: Vitals noted. No acute distress. AAOx3 HEENT: PERRL/EOMI, oropharynx clear, Normocephalic, atraumatic, MMM Cardiac: RRR, no murmur, +S1/S2 Pulmonary: CTA bilaterally, no wheezes, rales or rhonchi, equal chest expansion Abdomen: soft, nontender, BS noted, no guarding, no rebound. MSK: ROM intact, no joint swelling noted Extremities: Right leg BKA, left plantar surface of the foot with ulceration over the ball, no obvious evidence of erythema, swelling, discharge. Dressing recently changed. nontender calf, no cyanosis or clubbing. Left hand missing 3 digits Neuro: A&Ox3, moves all extremities, no focal deficits Psych: Appropriate mood and behavior Consult Discharge Plan - Plan Additional Instructions: Follow up in wound clinic with Dr. Lenz. Please make appointment prior to D/C. Referrals: Almas Ac DO [Primary Care Provider] - 01/31/18 2:00 pm (Please follow up as schedule...) Stone Lenz DPM [Partnered Physician] - - Attending Attestation I examined this patient and my medical decision-making was reviewed with the Resident Physician. I agree with the documented findings, disposition and treatment plan as described except to the extent set forth below.
[2018-01-26] MEDS: Insulin DETEMIR 100 UNIT/ML X5UNITS SQ SCH ×2 (12:03→21:12)
--- NOTE | 2018-01-26 21:52 | Electrocardiograph Report ---
[address] [place], [place] [address] Test Date: 2018-01-22 Pat Name: Maggie Cook Department: [id number] Room: 2A47 Gender: F [employer]: : [id number] Requested By: Halley Carson Order Number: [id number] Reading MD: Rupesh Powers Measurements Intervals [place] Rate: 94 P: 49 IN: 159 QRS: 117 QRSD: 99 T: 13 QT: 366 QTc: 458 Interpretive Statements Sinus rhythm with ventricular premature complex Left atrial enlargement Right axis deviation Electronically Signed On 01-26-2018 21:50:39 EST by Rupesh Powers
[2018-01-27] MEDS: *HR* Heparin 5,000 UNIT/ML VIAL SQ SCH ×3 (05:19→21:24)
[2018-01-27 07:10] LABS: Basophils % 0.2 %; Eosinophils # 0.1 K/mcL (0.0-0.6); Eosinophils % 1.5 %; Hematocrit 39.2 % (35.3-44.9); Hemoglobin 12.4 g/dL (11.5-15.4); Immature Granulocytes % 0.5 % (0-4); Lymphocytes # 1.9 K/mcL (0.6-4.6); Lymphocytes % 22.9 %; Mean Corpuscular HGB Conc 31.6 g/dL (31.6-35.5); Mean Corpuscular Hemoglobin 24.4 pg (28.0-33.3); Mean Platelet Volume 10.9 fL (9.4-12.4); Monocytes # 0.4 K/mcL (0.0-1.3); Monocytes % 5.4 %; Neutrophils # 5.6 K/mcL (1.6-8.9); Platelet Count 163 K/mcL (140-400); Red Blood Count 5.09 M/mcL (3.82-4.97); Red Cell Distribution Width 15.4 % (11.5-14.5); Segmented Neutrophils % 69.5 %
[2018-01-27 07:16] LABS: INR 1.1; Prothrombin Time 12.1 Seconds (9.4-12.1)
[2018-01-27 07:33] LABS: BUN/Creatinine Ratio 25 (6-26); Blood Urea Nitrogen 11 mg/dL (6-20); Calcium 8.8 mg/dL (8.6-10.3); Carbon Dioxide 25 mEq/L (23-29); Chloride 104 mEq/L (98-107); Glucose 308 mg/dL (70-105); Osmolality,Calculated 297 (280-300); Potassium 3.9 mEq/L (3.5-5.1); Sodium 138 mEq/L (136-145); eGFR For Non-African Americans > 60 (> 60)
--- NOTE | 2018-01-27 08:03 | Internal Med Progress Note ---
Hospitalist Progress Note - Encounter Date of Encounter: 01/27/18 Time of Encounter: 09:30 - Subjective Interval History: awake inbed, no foot pain, fevers or chills. denies and sob, orthopnea, cough or wheezing. remains awaiting cx results. - Exam Vitals: Temp Pulse Resp BP Pulse Ox 97.3 F L 80 16 140/74 92 01/27/18 04:27 01/27/18 04:27 01/27/18 04:27 01/27/18 04:27 01/27/18 04:27 Exam: gen- alert, awake,appears stated age cv- reg rate and rhythm, normal s1,s2, no murmurs appreciated, no le edema lungs- ctabl, no wheezing, rhonchi , right basilar crackles, normal resp effort on ra msk- right leg BKA skln- left foot dressing c/d/i neuro- AAOx3 - Assessment and Plan (1) Diabetic foot ulcer Current Visit: No Status: Chronic Assessment and Plan: Left Foor Ulcer- podiatry following, debridement 01/24, ID following - cont iv vanc Xray negative for OM. JULIANA LLE prelim normal -Follow up with Dr. Lenz in wound care center upon dc -monitor for diarrhea given c diff hx 01/22 bl cxs ngtd 01/23 left foot gram stain many gpcs 01/23 anarobic cx ngtd 01/23 foot wound cx Staph Aureus and strep agalactiae - follow up ID recs to determine duration and preferred abx (2) Bilateral pleural effusion Current Visit: Yes Status: Acute Assessment and Plan: Initial CXR on admit with bl pleural effusions however- 01/24 CTA with Mod R Pleural effusion, improved from 10/2017 CT asx, hx of same, no pe, no pna CTPA: IMPRESSION: Negative study for pulmonary embolism. Moderate right pleural effusion and associated likely dependent/compressive atelectasis to right lower lobe, improved from prior CT chest 10/17/2017. Echo: TTE reveals EF 55%, right sided CHF, and RV pressure overload likely from PAH secondary to known liver mass. -on diuretic -echo obtained and cards followed- she needs outpt stress test -will need outpt pulm and cards fu and established [facility] fu -she does not appear to need thoracentesis at this time given asx and improved overall (3) IDDM (insulin dependent diabetes mellitus) Current Visit: Yes Status: Acute Assessment and Plan: DM, with untrolled bs- levemir adjusted to 20 units in am / 30 units hs ann fulld ay will be 01/28, high SSI - monitor bs today and adjust further as needed (4) Hyperlipidemia Current Visit: Yes Status: Acute Assessment and Plan: -History of hyperlipidemia -Continue home medications (5) Pulmonary hypertension Current Visit: Yes Status: Acute Assessment and Plan: Pulm HTN continue oxygen via nasal cannula Duo-nebs CTPA negative for PE will need OP Pulmonology follow up . (6) Liver mass, right lobe Current Visit: Yes Status: Acute Assessment and Plan: -Patient has a history of liver hemangioma. She sees moose hunter at [facility]. Patient endorses that she has had ascites in the past and has had paracentesis. Her pleural effusion could be secondary to her liver hemangioma likely in the setting of hepatic hydrothorax -outpt fu (7) DVT prophylaxis Current Visit: No Status: Acute Assessment and Plan: heparin sc - Time Spent with Patient Total time spent is greater than 50% in coordination of care (as documented) at patient's floor/unit and/or counseling patient: Internal Medicine: Result - Labs CBC & Chem 7: 01/27/18 06:48 01/27/18 06:48 Labs: Short CBC 01/27/18 Range/Units 06:48 WBC 8.1 (4.3-11.1) K/mcL Hgb 12.4 (11.5-15.4) g/dL Hct 39.2 (35.3-44.9) % Plt Count 163 (140-400) K/mcL Neutrophils # 5.6 (1.6-8.9) K/mcL BMP 01/27/18 06:48 Sodium 138 Potassium 3.9 Chloride 104 Carbon Dioxide 25 BUN 11 Creatinine 0.44 L Glucose 308 H Calcium 8.8 - ABG Interpretation ABG results: PT/INR, D-dimer PT 12.1 Seconds (9.4-12.1) 01/27/18 06:48 Consult Discharge Plan - Plan Additional Instructions: Follow up in wound clinic with Dr. Lenz. Please make appointment prior to D/C. Referrals: Almas Ac DO [Primary Care Provider] - 01/31/18 2:00 pm (Please follow up as schedule...) Stone Lenz DPM [Partnered Physician] - (1) Diabetic foot ulcer Qualifiers: Diabetic foot ulcer location: midfoot Diabetes mellitus type: type 2 Laterality: left Non-pressure ulcer stage: limited to breakdown of skin Qualified Code(s): E11.621 - Type 2 diabetes mellitus with foot ulcer; L97.421 - Non-pressure chronic ulcer of left heel and midfoot limited to breakdown of skin (4) Hyperlipidemia Qualifiers: Hyperlipidemia type: mixed hyperlipidemia Qualified Code(s): E78.2 - Mixed hyperlipidemia
[2018-01-27] MEDS: Lactobacillus 1 EACH CAP.SPRINK PO SCH (09:16)
[2018-01-27] MEDS: Furosemide 20 MG TABLET PO SCH (09:17)
[2018-01-27] MEDS: Insulin LISPRO 300 UNITS/3 ML VIAL SQ SCH ×4 (09:17→21:21)
[2018-01-27] MEDS: Insulin DETEMIR 100 UNIT/ML X5UNITS SQ SCH ×2 (09:17→21:20)
[2018-01-28] MEDS: *HR* Heparin 5,000 UNIT/ML VIAL SQ SCH ×3 (05:36→21:27)
[2018-01-28] MEDS: Insulin LISPRO 300 UNITS/3 ML VIAL SQ SCH ×4 (08:42→21:26)
[2018-01-28] MEDS: Furosemide 20 MG TABLET PO SCH (08:43)
[2018-01-28] MEDS: Lactobacillus 1 EACH CAP.SPRINK PO SCH (08:43)
[2018-01-28] MEDS ORDERED: Aminoglycoside Consult 1 EACH MC ONE (08:48)
[2018-01-28] MEDS ORDERED: Insulin DETEMIR 100 UNIT/ML X5UNITS SQ SCH ×2 (09:00→21:00)
--- NOTE | 2018-01-28 12:29 | Discharge Summary ---
Orders not resulted at time of discharge: Pending orders 01/23/18 17:22 Culture,Anaerobic [RM] Routine 01/29/18 14:00 Vancomycin,Trough Timed Date of Encounter: 01/28/18 Time of Encounter: 08:30 - Discharge Diagnosis (1) Diabetic foot ulcer Status: Chronic Qualifiers: Diabetic foot ulcer location: midfoot Diabetes mellitus type: type 2 Laterality: left Non-pressure ulcer stage: limited to breakdown of skin Qualified Code(s): E11.621 - Type 2 diabetes mellitus with foot ulcer; L97.421 - Non-pressure chronic ulcer of left heel and midfoot limited to breakdown of skin (2) Bilateral pleural effusion Status: Acute (3) IDDM (insulin dependent diabetes mellitus) Status: Acute (4) Hyperlipidemia Status: Acute Qualifiers: Hyperlipidemia type: mixed hyperlipidemia Qualified Code(s): E78.2 - Mixed hyperlipidemia (5) Pulmonary hypertension Status: Acute (6) Liver mass, right lobe Status: Acute (7) DVT prophylaxis Status: Acute Hospital course: Ms. Anthony Cook is a 57 year old female - Time Spent with Patient Total time spent providing and/or coordinating discharge services: - Discharge Medications Home Medications: Sertraline [Zoloft] 100 mg PO DAILY 10/15/14 [History] Omeprazole [PriLOSEC] 20 mg PO DAILY 06/19/16 [History] Insulin Aspart Prot/Insuln Asp [Novolog Mix 70-30 Vial] 80 unit SQ BID 08/03/17 [History] OxyCODONE/APAP 5/325 [Percocet 5/325 MG] 1 tab PO TID PRN 08/03/17 [History] Allergies/Adverse Reactions: Allergy/AdvReac Type Severity Reaction Status Date / Time No Known Allergies Allergy Verified 08/03/17 21:31 Date of admission: 01/24/18 15:24 Primary care physician: Almas Ac Consults: 01/23/18 11:26 Consult to Podiatry [CONS] Routine Consulting Provider: [facility] Reason for Consult: LLE ulcer Call Completed: No 01/24/18 12:31 Consult to Cardiology [CONS] Routine Comment: Consulting Provider: Cardiology [place] Reason for Consult: bilateral pleural effusions, new Echo findings Moderately dilated right ventricle with mild hypokinesis.Persistent D-shape septum consistent with RV pressure overload Call Completed: No 01/24/18 13:18 Consult to Infectious Diseases [CONS] Routine Consulting Provider: [facility] Reason for Consult: LLE ulcer s/p debridment Call Completed: No - Constitutional Vitals: Temp Pulse Resp BP Pulse Ox 97.6 F 80 18 126/70 91 01/28/18 12:02 01/28/18 12:02 01/28/18 12:02 01/28/18 12:02 01/28/18 12:02 - Patient Status Condition: Fair - Discharge Instructions Follow Up With: Almas Ac DO [Primary Care Provider] - 01/31/18 2:00 pm (Please follow up as schedule...) Kiana Bauman [Advanced Practice Nurse] - (Web-request completed 01/28/2018) Stone Lenz DPM [Partnered Physician] - (Web-request completed 01/28/2018) Torey Graham MD [Partnered Physician] - (Web-request completed 01/28/2018) Angel Elkins MD [Non-Partnered Physician] - (Web-request completed 01/28/2018 ) Jim Martinez MD [Partnered Physician] - (Web-request completed 01/28/2018) Additional Instructions: Follow up in wound clinic with Dr. Lenz. Please make appointment prior to D/C.
--- NOTE | 2018-01-28 12:40 | Internal Med Progress Note ---
Hospitalist Progress Note - Encounter Date of Encounter: 01/28/18 Time of Encounter: 09:00 - Subjective Interval History: awake inbed, no foot pain, fevers or chills. she continues to have no sob, orthopnea, wheezing or cough. Beginning to prep for dc and discussed required outpt follow ups. RN at bedside and will put in referral requests today for pulm, gi, cards. Discussed in detail her echo results and pleural effusion. She verbalized good understanding that effusion can indicate underlying serious disease and fu will be required. She has previously seen [facility] hepatology bt prefers to have a local gi to follow with routinely, and then be referred to hepatology as needed, and requested contact info. She is agreeable to pulm fu and cards for outpt stress testing. - Exam Vitals: Temp Pulse Resp BP Pulse Ox 97.6 F 80 18 126/70 91 01/28/18 12:02 01/28/18 12:02 01/28/18 12:02 01/28/18 12:02 01/28/18 12:02 Exam: gen- alert, awake,appears stated age cv- reg rate and rhythm, normal s1,s2, no murmurs appreciated, no le edema lungs- ctabl, no wheezing, rhonchi , diminished right base, normal resp effort on ra msk- right leg BKA skln- left foot dressing c/d/i neuro- AAOx3 - Assessment and Plan (1) Diabetic foot ulcer Current Visit: No Status: Chronic Assessment and Plan: Left Foor Ulcer- podiatry following, debridement 01/24, ID following - cont iv vanc Xray negative for OM. JULIANA LLE prelim normal -Follow up with Dr. Lenz in wound care center upon dc -monitor for diarrhea given c diff hx 01/22 bl cxs neg 01/23 left foot gram stain many gpcs 01/23 anarobic cx ngtd 01/23 foot wound cx Staph Aureus and strep agalactiae - sensitivities back 01/28 and discussed with podiatry--rec for 10 d of bactrim -as per my discussion today with podiatry she is able to dc to home with fu with Dr Cooley in one week and abx as above, however, her bs remains uncontrolled in 300s and further dosing adjustments will be made today so she has opportunity for tighter control at home to promote healing. (2) Bilateral pleural effusion Current Visit: Yes Status: Acute Assessment and Plan: Initial CXR on admit with bl pleural effusions however- 01/24 CTA with Mod R Pleural effusion, improved from 10/2017 CT asx, hx of same, no pe, no pna CTPA: IMPRESSION: Negative study for pulmonary embolism. Moderate right pleural effusion and associated likely dependent/compressive atelectasis to right lower lobe, improved from prior CT chest 10/17/2017. Echo: TTE reveals EF 55%, right sided CHF, and RV pressure overload with mild RV hypokinesis likely from PAH secondary to known liver mass as per cards -on diuretic and will dc on one -cards followed- she needs outpt stress test and she is agreeable -will need outpt pulm and she is agreeable to this as well, as she understands recurrent effusion is likely from liver mass as she has been told before, but underlying pulm disease needs to be ruled out as well, she has not required any o2 nc and is asx -she does not appear to need thoracentesis at this time given asx without any o2 requirements -she will fu with pulm, cards, and has requested to be established with our [facility] and has seen [facility] hepatology in past (3) IDDM (insulin dependent diabetes mellitus) Current Visit: Yes Status: Acute Assessment and Plan: DM, with untrolled bs- levemir adjusted to 30 units in am / 40 units hs , high SSI -tighter control in outpt setting needed for wound healing, hopefully we will see some improvement with bs in am and can dc her to home (4) Hyperlipidemia Current Visit: Yes Status: Acute Assessment and Plan: -History of hyperlipidemia -Continue home medications (5) Pulmonary hypertension Current Visit: Yes Status: Acute Assessment and Plan: Pulm HTN continue oxygen via nasal cannula Duo-nebs CTPA negative for PE will need OP Pulmonology follow up as above . (6) Liver mass, right lobe Current Visit: Yes Status: Acute Assessment and Plan: -Patient has a history of liver hemangioma. 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 -outpt fu (7) DVT prophylaxis Current Visit: No Status: Acute Assessment and Plan: heparin sc - Time Spent with Patient Total time spent is greater than 50% in coordination of care (as documented) at patient's floor/unit and/or counseling patient: 25 - 35 minutes Plan of Care Discussed with: patient Internal Medicine: Result - Labs CBC & Chem 7: 01/27/18 06:48 01/27/18 06:48 - ABG Interpretation ABG results: PT/INR, D-dimer PT 12.1 Seconds (9.4-12.1) 01/27/18 06:48 Consult Discharge Plan - Plan Additional Instructions: Follow up in wound clinic with Dr. Lenz. Please make appointment prior to D/C. Referrals: Almas Ac DO [Primary Care Provider] - 01/31/18 2:00 pm (Please follow up as schedule...) Kiana Bauman [Advanced Practice Nurse] - (Web-request completed 01/28/2018) Stone Lenz DPM [Partnered Physician] - (Web-request completed 01/28/2018) Torey Graham MD [Partnered Physician] - (Web-request completed 01/28/2018) Angel Elkins MD [Non-Partnered Physician] - (Web-request completed 01/28/2018 ) Jim Martinez MD [Partnered Physician] - (Web-request completed 01/28/2018) ___ (1) Diabetic foot ulcer Qualifiers: Diabetic foot ulcer location: midfoot Diabetes mellitus type: type 2 Laterality: left Non-pressure ulcer stage: limited to breakdown of skin Qualified Code(s): E11.621 - Type 2 diabetes mellitus with foot ulcer; L97.421 - Non-pressure chronic ulcer of left heel and midfoot limited to breakdown of skin (4) Hyperlipidemia Qualifiers: Hyperlipidemia type: mixed hyperlipidemia Qualified Code(s): E78.2 - Mixed hyperlipidemia
[2018-01-28] MEDS: Sulfamethoxazole/Trimeth DS 1 EACH TABLET PO SCH (21:23)
[2018-01-29] MEDS: *HR* Heparin 5,000 UNIT/ML VIAL SQ SCH (05:40)
[2018-01-29] MEDS: Furosemide 20 MG TABLET PO SCH (07:45)
[2018-01-29] MEDS: Insulin LISPRO 300 UNITS/3 ML VIAL SQ SCH ×2 (07:45→12:07)
[2018-01-29] MEDS: Lactobacillus 1 EACH CAP.SPRINK PO SCH (07:45)
[2018-01-29] MEDS: Sulfamethoxazole/Trimeth DS 1 EACH TABLET PO SCH (07:45)
--- NOTE | 2018-01-29 07:50 | Discharge Summary ---
- NOTES TO OUTPATIENT PROVIDER Notes to Outpatient Provider: She must fu with Dr Lenz in one week for wound check. She is discharged on keflex. Her blood sugars were uncontrolled this admission. I have reviewed with pharmacy and pt and it appears previous provider had underdosed from her home regimen. She has let us know PCP is wor joelle on adjusting insulin with plan for lantus and endocrinology referral and we agree. She is discharged on her home regimen and with close outpt fu of blood sugars as she needs tight control for wound healing. She has right pleural effusion and has been entirely asymptomatic with normal oxygenation on room air. We had lengthy discussion with her regarding need for pulm outpt eval, and close follow up with gi given her hemangioma, pulm htn and concern liver is contributing to recurrent right effusion. She has also been educated that recurrent effusions can indicate underlying lung pathology not excluding cancer. She has no signs of recurrent pna. She agreed to pulm and local gi follow up with referral back to [facility] hepatology if needed. Cards evaluated her with some evidence of RV strain and hypokinesis on echo and is rec home with oral diuretic and outpt stress test. referrals for appts with pulm, gi and cards have been made on dc. Orders not resulted at time of discharge: Pending orders 01/23/18 17:22 Culture,Anaerobic [RM] Routine Date of Encounter: 01/29/18 Time of Encounter: 09:30 - Discharge Diagnosis (1) Diabetic foot ulcer Priority: Primary Status: Chronic Assessment and Plan: Left Foor Ulcer- podiatry following, debridement 01/24, ID following - cont iv vanc Xray negative for OM. JULIANA LLE prelim normal -Follow up with Dr. Lenz in wound care center upon dc -monitor for diarrhea given c diff hx 01/22 bl cxs neg 01/23 left foot gram stain many gpcs 01/23 anarobic cx ngtd 01/23 foot wound cx Staph Aureus and strep agalactiae - sensitivities back 01/28 and discussed with podiatry--rec for 10 d of bactrim -I discussed with ID this morning and rec is for Keflex 500 mg TID on discharge to complete 14d course Qualifiers: Diabetic foot ulcer location: midfoot Diabetes mellitus type: type 2 Laterality: left Non-pressure ulcer stage: limited to breakdown of skin Qualified Code(s): E11.621 - Type 2 diabetes mellitus with foot ulcer; L97.421 - Non-pressure chronic ulcer of left heel and midfoot limited to breakdown of skin (2) Bilateral pleural effusion Priority: Secondary Status: Chronic Assessment and Plan: Initial CXR on admit with bl pleural effusions however- 01/24 CTA with Mod R Pleural effusion, improved from 10/2017 CT asx, hx of same, no pe, no pna CTPA: IMPRESSION: Negative study for pulmonary embolism. Moderate right pleural effusion and associated likely dependent/compressive atelectasis to right lower lobe, improved from prior CT chest 10/17/2017. Echo: TTE reveals EF 55%, right sided CHF, and RV pressure overload with mild RV hypokinesis likely from PAH secondary to known liver mass as per cards -on diuretic and will dc on one -cards followed- she needs outpt stress test and she is agreeable -will need outpt pulm and she is agreeable to this as well, as she understands recurrent effusion is likely from liver mass as she has been told before, but underlying pulm disease needs to be ruled out as well, she has not required any o2 nc and is asx -she does not appear to need thoracentesis at this time given asx without any o2 requirements -she will fu with pulm, cards, and has requested to be established with our local gi and has seen [facility] hepatology in past (3) IDDM (insulin dependent diabetes mellitus) Priority: Secondary Status: Chronic Assessment and Plan: DM, with untrolled bs- levemir BID had been ordered throughout admission -I held pt for dc to further monitor and adjust insulin and to discuss with pharmacist from floor whom had been following her with previous provider -it does appear that regimen she was on prior to my assuming care was not equivalent to her home 70/30 insulin and she is hyperglycemic due to under dosing -outpt pcp has been closely monitoring per pt and her bs at home is near goal and in 20ss as opposed to 300s here. -she is going to dc on home regimen with close outpt fu with pcp and rec pcp referral to endocrinology pending outpt blood sugars as she requires tight control for wound healing -discussed in detail with pt and pharmacist who are in agreement with plan as he bs control is better on her home med than what she was substituted with here (4) Hyperlipidemia Priority: Secondary Status: Chronic Assessment and Plan: -History of hyperlipidemia -Continue home medications Qualifiers: Hyperlipidemia type: mixed hyperlipidemia Qualified Code(s): E78.2 - Mixed hyperlipidemia (5) Pulmonary hypertension Priority: Secondary Status: Chronic Assessment and Plan: Pulm HTN continue oxygen via nasal cannula Duo-nebs CTPA negative for PE will need OP Pulmonology follow up as above . (6) Liver mass, right lobe Priority: Secondary Status: Chronic Assessment and Plan: -Patient has a history of liver hemangioma. 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 -outpt fu (7) DVT prophylaxis Priority: Secondary Status: Acute Assessment and Plan: heparin sc Hospital course: Ms Cruz was admitted with left foot diabetic ulcer and cellulitis which has greatly improved with podiatry debridement and IV abx. Culture results were reviewed bu ID whom has been following her and outpt oral abx received prior to discharge. Of note her bs were elevated above goal this admission. on further review of her chart and discussion with pharmacy it appears her home 70/30 Novolog had been under dosed. Pt bs better controlled at home with home regimen and pcp making adjustments and referral to endo as per pt. Will dc to home on home regimen with close outpt fu with pcp. She had incidental pleural effusions, worse on right with history of same in past with episode of pna, as well as chronic liver mass (hemangioma) with ascites in the past. [facility] eval of her for effusion, with echo revealing evidence of right heart strain with pulm htn and mild RV hypokinesis. They gave recommendation for diuretic and outpt stress test. She will fu with gi as well for liver mass likely contributing to this. She declined any further work up this admission as she has no symptoms from effusion and requires no oxygen support. She will fu with gi, cards and pulm. Further details of treatment this admission as documented in assessment/plan. Discharge discussed with: patient - Time Spent with Patient Total time spent providing and/or coordinating discharge services: Less than 30 minutes (25 min) - Discharge Medications Prescriptions: Atorvastatin [Lipitor] 40 mg PO HS 30 Days #30 tablet Cephalexin [Keflex] 500 mg PO TID 10 Days #30 capsule Furosemide [Lasix] 20 mg PO DAILY #30 tablet Lactobacillus [Culturelle] 1 each PO DAILY 10 Days #10 cap.sprink Home Medications: Sertraline [Zoloft] 100 mg PO DAILY 10/15/14 [History] Omeprazole [PriLOSEC] 20 mg PO DAILY 06/19/16 [History] Insulin Aspart Prot/Insuln Asp [Novolog Mix 70-30 Vial] 80 unit SQ BID 08/03/17 [History] OxyCODONE/APAP 5/325 [Percocet 5/325 MG] 1 tab PO TID PRN 08/03/17 [History] Atorvastatin [Lipitor] 40 mg PO HS 30 Days #30 tablet 01/29/18 [Rx] Cephalexin [Keflex] 500 mg PO TID 10 Days #30 capsule 01/29/18 [Rx] Furosemide [Lasix] 20 mg PO DAILY #30 tablet 01/29/18 [Rx] Lactobacillus [Culturelle] 1 each PO DAILY 10 Days #10 cap.sprink 01/29/18 [Rx] Allergies/Adverse Reactions: Allergy/AdvReac Type Severity Reaction Status Date / Time No Known Allergies Allergy Verified 08/03/17 21:31 Date of admission: 01/24/18 15:24 Primary care physician: Almas Ac Consults: 01/23/18 11:26 Consult to Podiatry [CONS] Routine Consulting Provider: [facility] Reason for Consult: LLE ulcer Call Completed: No 01/24/18 12:31 Consult to Cardiology [CONS] Routine Comment: Consulting Provider: Cardiology [place] Reason for Consult: bilateral pleural effusions, new Echo findings Moderately dilated right ventricle with mild hypokinesis.Persistent D-shape septum consistent with RV pressure overload Call Completed: No 01/24/18 13:18 Consult to Infectious Diseases [CONS] Routine Consulting Provider: Infectious Disease [facility] Reason for Consult: LLE ulcer s/p debridment Call Completed: No - Constitutional Vitals: Temp Pulse Resp BP Pulse Ox 97.8 F 79 16 134/71 92 01/29/18 07:25 01/29/18 07:25 01/29/18 07:25 01/29/18 07:25 01/29/18 07:25 Exam: gen- alert, awake,appears stated age cv- reg rate and rhythm, normal s1,s2, no murmurs appreciated, no le edema lungs- ctabl, no wheezing, rhonchi , diminished right base, normal resp effort on ra msk- right leg BKA skln- left foot dressing c/d/i neuro- AAOx3 - Patient Status Disposition: Home, Self-Care Condition: Good Overall status at discharge: patient is back to baseline - Discharge Instructions Instructions: Cephalexin (By mouth), Furosemide (By mouth), Atorvastatin (By mouth), Probiotic (By mouth) Follow Up With: Almas Ac DO [Primary Care Provider] - 01/31/18 2:00 pm (Please follow up as schedule...) Kiana Bauman [Advanced Practice Nurse] - (Web-request completed 01/28/2018) Stone Lenz DPM [Partnered Physician] - (Web-request completed 01/28/2018) Torey Graham MD [Partnered Physician] - (Web-request completed 01/28/2018) Angel Elkins MD [Non-Partnered Physician] - (Web-request completed 01/28/2018 ) Jim Martinez MD [Partnered Physician] - (Web-request completed 01/28/2018) Additional Instructions: Follow up in wound clinic with Dr. Lenz. Please make appointment prior to D/C. - Diet and Activity Activity: increase activity as tolerated, other (-Postoperative shoe ordered- please have patient wear.) Diet: diabetic diet, low fat, low cholesterol, low salt diet
[2018-01-29] MEDS ORDERED: Insulin DETEMIR 100 UNIT/ML X5UNITS SQ SCH (09:00)
--- NOTE | 2018-01-29 10:30 | Infectious Disease Progress No ---
Date of Encounter: 01/29/18 Time of Encounter: 09:35 - Assessment and Plan (1) Ulcer of left foot Status: Acute Location: Left foot. Etiology: non-healing DFU. Status post bedside debridement by the podiatry team X-ray negative for OM, but ESR elevated at 85. Wound culture positive for GBS and MSSA. Currently on Bactrim PO. Recommendations: - Wound care per the podiatry team. - Repeat ESR and CRP. - Discontinue Bactrim. - Start keflex 500mg PO TID. - Duration of treatment depends on the clinical picture, but likely a total fo 14 days of treatment. - Monitor renal function and dose-adjust antibiotics. Qualifiers: Non-pressure ulcer stage: limited to breakdown of skin Qualified Code(s): L97.521 - Non-pressure chronic ulcer of other part of left foot limited to breakdown of skin (2) Diabetes mellitus type 2 in nonobese Status: Acute Poorly controlled with A1c of 12.1%. Poor control since admission, recommend tighter glycemic control to promote healing. Management per primary team and outpatient provider. (3) History of Clostridium difficile colitis Status: Chronic Patient is not complaining of diarrhea this morning. Reported 2 episodes of loose bowel movements 01/24. Last BM was yesterday. Continue to monitor closely specially with history of C. difficile and is currently on antibiotics. (4) History of MRSA infection Status: Acute - Subjective Interval history: Patient seen and examined. No acute events noted overnight. Patient states overall she feels well and wants to go home. Denies fevers, chills, or rigors. Denies chest pain, shortness of breath, or cough. Denies nausea, vomiting, or diarrhea. Last BM was yesterday. Denies abdominal pain or urinary complaints. Denies oral thrush or skin lesions. Infect Dis PN-Objective Data - Labs CBC & Chem 7: 01/27/18 06:48 01/27/18 06:48 Labs: Laboratory Results - last 24 hr 01/27/18 01/27/18 01/27/18 08:05 17:00 20:18 POC Glucose 321 H 231 H 297 H 01/28/18 01/28/18 01/28/18 08:36 12:01 15:28 POC Glucose 314 H 313 H 311 H 11/18/18 11/18/18 17:37 20:43 POC Glucose 304 H 283 H Cultures: Cultures 01/22/18 19:06 Blood Culture - Final Peripheral Venipuncture No growth. Final report. 01/22/18 19:06 Blood Culture - Final Peripheral Venipuncture No growth. Final report. 01/23/18 17:22 Anaerobic Culture - Preliminary Left Foot At this time, no anaerobic growth is present. The culture will be finalized after 5 days of incubation. 01/23/18 17:22 Wound Culture - Final Left Foot Staphylococcus aureus Strep agalactiae - (Group B) 01/23/18 17:22 Gram Stain - Final Left Foot Exam - Constitutional Vitals: Temp Pulse Resp BP Pulse Ox 97.8 F 79 16 134/71 92 01/29/18 07:25 01/29/18 07:25 01/29/18 07:25 01/29/18 07:25 01/29/18 07:56 General appearance: average body habitus, cooperative, no acute distress - Head Head exam: Present: atraumatic, normal inspection, normocephalic - Eye Eye exam: Present: EOMI, normal appearance, PERRL Pupils: Present: normal accommodation - ENT ENT exam: Present: mucous membranes moist - Neck Neck exam: Present: normal inspection - Respiratory Respiratory exam: Present: CTAB. Absent: rales, respiratory distress, rhonchi, wheezes - Cardiovascular Cardiovascular exam: Present: RRR, +S1, +S2 - GI/Abdominal GI/Abdominal exam: Present: distended, normal bowel sounds, soft. Absent: tenderness - Extremities Exam Extremities exam: Absent: normal inspection (Right AKA stump without abnormality. Left foot dressing C/D/I.), pedal edema, tenderness - Neurological Exam Neurological exam: Present: alert, oriented X3, no focal deficits - Psychiatric Psychiatric exam: Present: normal affect, normal mood - Skin Skin exam: Present: dry, intact, normal color, warm Consult Discharge Plan - Plan Instructions: Cephalexin (By mouth), Furosemide (By mouth), Atorvastatin (By mouth), Probiotic (By mouth) Additional Instructions: Follow up in wound clinic with Dr. Lenz. Please make appointment prior to D/C. Referrals: Almas Ac DO [Primary Care Provider] - 01/31/18 2:00 pm (Please follow up as schedule...) Stone Lenz DPM [Partnered Physician] - 02/07/18 2:15 pm (wound care [phone]) Angel Elkins MD [Non-Partnered Physician] - (Office will call with an appointment ) Prescriptions: Atorvastatin [Lipitor] 40 mg PO HS 30 Days #30 tablet Cephalexin [Keflex] 500 mg PO TID 10 Days #30 capsule Furosemide [Lasix] 20 mg PO DAILY #30 tablet Lactobacillus [Culturelle] 1 each PO DAILY 10 Days #10 cap.allie
[2018-01-29 11:46] VITALS: BP 135/72
[2018-01-29] MEDS ORDERED: cephALEXin 500 MG CAPSULE PO SCH (15:00)
== END 2018-01-29 13:27 | disposition home or self-care (01) | DRG 623 ==
LOC: 2ANU 17:00 → EMEROOARM 17:00 → SUATTDRO 21:51 → 2ANU 22:39 → SUATTDRO 01-24 15:24
PROVIDERS: ADMIT Internal Medicine; ATTEND Internal Medicine

== ENCOUNTER 2018-04-08 19:40 | Inpatient (IN) ==
[2018-04-08] MEDS ORDERED: Ondansetron ODT 4 MG TAB.RAPDIS SL ONE (20:06)
[2018-04-08] MEDS ORDERED: *HR* FentaNYL (PF) 100 MCG/2 ML VIAL IVP ONE (20:06)
--- NOTE | 2018-04-08 20:06 | Emergency Department Note ---
Disposition Clinical Impression: Hypoglycemia, Infection (chronic) of amputation stump, Nausea, Pleural effusion, right Fall Qualifiers: Encounter type: initial encounter Qualified Code(s): W19.XXXA - Unspecified fall, initial encounter Rib fracture Qualifiers: Encounter type: initial encounter Rib fracture type: multiple ribs Fracture type: closed Laterality: right Qualified Code(s): S22.41XA - Multiple fractures of ribs, right side, initial encounter for closed fracture Disposition: Admitted As Inpatient General Adult HPI - General Stated complaint: Low Blood Sugar Time Seen by Provider: 04/08/18 19:48 Source: patient, EMS Mode of arrival: private vehicle Limitations: no limitations Nursing Notes Reviewed: Yes Vital Signs Reviewed: Yes - History of Present Illness HPI Narrative: 57 year old female with past medical history including type 2 diabetes mellitus insulin dependent, right BKA, presenting with low glucose and fall. Patient states she was in her usual state of health and 30 minutes prior to arrival felt nauseous. She felt lightheaded and fell. Patient;s states the patient did not hit her head or lose consciousness. He gave her 40 units novolog and 2 candy bars. EMS arrived and patient's blood glucose was 41 and patient was alert and lethargic. They started D10 drip. Patient complains of nausea and RUQ abdominal pain after the fall. She also sustained a skin abrasian on left knee and complains of left knee pain. Denies headache, shortness of breath, change in vision, dizziness, chest pain, dysuria, abdnormal bowel movement. States her blood glucose has been fluctuating recently. She states she takes 80 units novolog BID daily. Denies recent infections or antibiotic use. Pain Scale: 10 - Related Data Home Medications Medication Instructions Recorded Confirmed Sertraline [Zoloft] 100 mg PO DAILY 10/15/14 01/22/18 Omeprazole [PriLOSEC] 20 mg PO DAILY 06/19/16 01/22/18 Insulin Aspart Prot/Insuln Asp 80 unit SQ BID 08/03/17 01/22/18 [Novolog Mix 70-30 Vial] OxyCODONE/APAP 5/325 [Percocet 1 tab PO TID PRN 08/03/17 01/22/18 5/325 MG] Previous Rx's Medication Instructions Recorded Furosemide [Lasix] 20 mg PO DAILY #30 tablet 01/29/18 Allergies Allergy/AdvReac Type Severity Reaction Status Date / Time No Known Allergies Allergy Verified 08/03/17 21:31 All systems ED: reviewed and negative except as stated. Review of Systems: As Per HPI Constitutional: Denies: fever, chills Eyes: Denies: vision change ENT ED: Denies: throat pain, congestion Cardiovascular: Denies: chest pain, palpitations Respiratory: Denies: cough, dyspnea Gastrointestinal: Reports: abdominal pain, nausea. Denies: vomiting, diarrhea Genitourinary: Denies: dysuria Musculoskeletal: Denies: back pain Integumentary: Reports: abrasion Past Medical History - Past Medical History Attestation: Yes The following information was validated with the patient. Source: patient Medical history: Reports: diabetes, GERD, hyperlipidemia, other Surgical history: Reports: cholecystectomy, other Psychiatric history: Reports: anxiety, depression HARNESS MENDER history: Reports: no HARNESS MENDER history - Social History Smoking Status: Former smoker Smokeless Tobacco Status: No Alcohol use: Reports: none Drug use: Reports: none Physical Exam - General Limitations: no limitations General appearance: alert, in distress (moderate) - Head Head exam: atraumatic, normocephalic, normal inspection - Eye Eye exam: Present: normal appearance, PERRL, EOMI. Absent: nystagmus - ENT ENT exam: normal exam, normal oropharynx, mucous membranes moist, TM's normal bilaterally, normal external ear exam - Neck Neck exam: Present: normal inspection, full ROM. Absent: tenderness - Chest Chest inspection: Present: normal inspection, symmetric chest wall rise. Absent: tenderness - Respiratory Respiratory exam: Present: normal lung sounds bilaterally. Absent: respiratory distress, wheezes - Cardiovascular Cardiovascular exam: Present: regular rate, normal rhythm, normal heart sounds - Abdominal Exam Abdominal exam: Present: soft, tenderness (moderate RUQ tenderness), distention. Absent: guarding, rebound - Extremities Exam Extremities exam: Present: other (Right BKA with prosthetic. Left knee skin tear cleaned and covered. No extremity tenderness) - Neurological Exam Neurological exam: Present: alert, oriented X3, CN II-XII intact - Expanded Neurological Exam Speech: Present: fluid speech Cerebellar function: finger to nose: Normal Motor strength - LUE: 5/5 Motor strength - RUE: 5/5 Motor strength - LLE: 5/5 Upper motor neuron exam: elena neglect: Absent bilaterally Sensory exam upper extremity: light touch: Normal Sensory exam lower extremity: light touch: Normal - Psychiatric Psychiatric exam: Present: normal affect, normal mood - Skin Skin exam: Present: warm, dry. Absent: diaphoresis, pallor Course Vital Signs Temperature 97.4 F L 04/08/18 19:44 Pulse Rate 79 04/08/18 19:44 Respiratory Rate 18 04/08/18 19:44 Blood Pressure 146/77 04/08/18 19:44 O2 Sat by Pulse Oximetry 94 04/08/18 19:44 Temperature 97.4 F L 04/08/18 19:44 Pulse Rate 80 04/08/18 21:35 Respiratory Rate 16 04/08/18 21:35 Blood Pressure 148/68 04/08/18 21:35 O2 Sat by Pulse Oximetry 100 04/08/18 21:35 Oxygen Delivery Oxygen Delivery Nasal Cannula Medical Decision Making - MDM Narrative Medical decision making narrative: Patient;s repeat blood glucose is 64. Will finish D10 drip. She is alert and oriented and complains of nausea. No weakness or stroke like symptoms. Will give her zofran for nausea and fentanyl for pain. She will eat PO. Will check chest xray, abdominal CT secondary to pain and tenderness, left knee xray. Check CBC, BMP, urinalysis for signs of infection and evaluation why she has labile blood glucose. 20:30 When patient's prosthetic was removed from her right BKA, there is noted to be an infection at the stump site and foul smell. Will check xray to evaluate for osteomyelitis. 20:[address] and family at bedside. Patients family state her blood sugars have been labile and hypoglycemic for a couple of weeks. Today, patient's blood glucose have been low and she has been nauseous all afternoon. Family state the past week she has increased abdominal distention and she has a history of hepatic hemangioma. She has once required paracentesis. Will check ammonia level, hepatic panel at this time. There is a sore with yellow purulent drainage on the right stump without erythema, evidence of gangrene, or necrosis. There is a callus that is broken down with abrasian on the left sole under the great toe. Patient has been managing her sores and cleaning and wrapping them herself. No antibiotics and she has not followed up with her PCP. Will check left foot xray to rule out osteomyelitis. Upon review, she has a known left plantar wound that she follows with Dr. Lenz. 21:30 Patient had decreased consciousness and was not answering questions. Repeat Accu-Chek was 19. She has not eaten anything here today as she has been and imaging. We will give an amp of D50. She became responsive and alert after the D50. We will start D5 and half-normal saline drip at 125 miles per hour. She will also eat crackers and peanut butter. 22:00 There is no evidence of acute or new osteomyelitis. However given the concern of labile blood sugars and soft tissue infection, we will start vancomycin and Zosyn. Patient remains alert. CT imaging with right atelectasis with concerns of pneumonia versus pleural effusion. There also appears to be right rib fractures. She also has a moderate amount of ascites and she does have a hemangioma. Hepatic panel normal. Patient will require admission for further management. hospitalist consulted. 22:[address] Quiñones who accepts admission. Another amp of D50 was given at this time as repeat accu check 44. Patient is still alert and responsive. - Medical Records Medical records reviewed: Yes I reviewed the patient's medical records. - Lab Data Lab results reviewed: Yes I reviewed the patient's lab results. Result diagrams: 04/08/18 19:55 04/08/18 19:55 Lab Results 04/08/18 04/08/18 04/08/18 Range/Units 19:44 19:55 19:55 WBC 10.2 (4.3-11.1) K/mcL RBC 4.80 (3.82-4.97) M/mcL Hgb 12.0 (11.5-15.4) g/dL Hct 39.1 (35.3-44.9) % MCV 81.5 L (83.0-100.0) fL MCH 25.0 L (28.0-33.3) pg MCHC 30.7 L (31.6-35.5) g/dL RDW 15.8 H (11.5-14.5) % Plt Count 250 (140-400) K/mcL MPV 10.2 (9.4-12.4) fL Immature Gran % 0.5 (0-4) % Seg Neutrophils % 73.6 % Lymphocytes % 18.5 % Monocytes % 6.3 % Eosinophils % 0.9 % Basophils % 0.2 % Neutrophils # 7.5 (1.6-8.9) K/mcL Lymphocytes # 1.9 (0.6-4.6) K/mcL Monocytes # 0.6 (0.0-1.3) K/mcL Eosinophils # 0.1 (0.0-0.6) K/mcL Basophils # 0.0 (0.0-0.2) K/mcL Sodium 138 (136-145) mEq/L Potassium 3.9 (3.5-5.1) mEq/L Chloride 105 (98-107) mEq/L Carbon Dioxide 27 (23-29) mEq/L BUN 19 (6-20) mg/dL Creatinine 0.49 L (0.60-1.20) mg/dL Est GFR ( Amer) > 60 (> 60) Est GFR (Non-Af Amer) > 60 (> 60) BUN/Creatinine Ratio 39 H (6-26) Glucose 60 L (70-105) mg/dL POC Glucose 62 L (70-99) mg/dL Calculated Osmolality 286 (280-300) Lactic Acid (0.5-2.2) mmol/L Calcium 8.8 (8.6-10.3) mg/dL Total Bilirubin (0.3-1.0) mg/dL Direct Bilirubin (0.0-0.2) mg/dL Indirect Bilirubin (0.0-1.2) mg/dL AST (13-39) Units/L ALT (7-52) Units/L Alkaline Phosphatase (34-104) Units/L Ammonia (16-53) mcmol/L Serum Total Protein (6.4-8.9) g/dL Albumin (3.5-5.7) g/dL Globulin (2.4-3.5) g/dL Albumin/Globulin Ratio (1.1-2.2) Lipase (11-82) Units/L 04/08/18 04/08/18 04/08/18 Range/Units 21:03 21:03 21:03 WBC (4.3-11.1) K/mcL RBC (3.82-4.97) M/mcL Hgb (11.5-15.4) g/dL Hct (35.3-44.9) % MCV (83.0-100.0) fL MCH (28.0-33.3) pg MCHC (31.6-35.5) g/dL RDW (11.5-14.5) % Plt Count (140-400) K/mcL MPV (9.4-12.4) fL Immature Gran % (0-4) % Seg Neutrophils % % Lymphocytes % % Monocytes % % Eosinophils % % Basophils % % Neutrophils # (1.6-8.9) K/mcL Lymphocytes # (0.6-4.6) K/mcL Monocytes # (0.0-1.3) K/mcL Eosinophils # (0.0-0.6) K/mcL Basophils # (0.0-0.2) K/mcL Sodium (136-145) mEq/L Potassium (3.5-5.1) mEq/L Chloride (98-107) mEq/L Carbon Dioxide (23-29) mEq/L BUN (6-20) mg/dL Creatinine (0.60-1.20) mg/dL Est GFR ( Amer) (> 60) Est GFR (Non-Af Amer) (> 60) BUN/Creatinine Ratio (6-26) Glucose (70-105) mg/dL POC Glucose (70-99) mg/dL Calculated Osmolality (280-300) Lactic Acid 0.5 (0.5-2.2) mmol/L Calcium (8.6-10.3) mg/dL Total Bilirubin 1.0 (0.3-1.0) mg/dL Direct Bilirubin 0.2 (0.0-0.2) mg/dL Indirect Bilirubin 0.8 (0.0-1.2) mg/dL AST 18 (13-39) Units/L ALT 14 (7-52) Units/L Alkaline Phosphatase 98 (34-104) Units/L Ammonia 53 (16-53) mcmol/L Serum Total Protein 6.3 L (6.4-8.9) g/dL Albumin 3.9 (3.5-5.7) g/dL Globulin 2.4 (2.4-3.5) g/dL Albumin/Globulin Ratio 1.6 (1.1-2.2) Lipase < 3 L (11-82) Units/L 04/08/18 04/08/18 04/08/18 Range/Units 21:25 21:28 22:09 WBC (4.3-11.1) K/mcL RBC (3.82-4.97) M/mcL Hgb (11.5-15.4) g/dL Hct (35.3-44.9) % MCV (83.0-100.0) fL MCH (28.0-33.3) pg MCHC (31.6-35.5) g/dL RDW (11.5-14.5) % Plt Count (140-400) K/mcL MPV (9.4-12.4) fL Immature Gran % (0-4) % Seg Neutrophils % % Lymphocytes % % Monocytes % % Eosinophils % % Basophils % % Neutrophils # (1.6-8.9) K/mcL Lymphocytes # (0.6-4.6) K/mcL Monocytes # (0.0-1.3) K/mcL Eosinophils # (0.0-0.6) K/mcL Basophils # (0.0-0.2) K/mcL Sodium (136-145) mEq/L Potassium (3.5-5.1) mEq/L Chloride (98-107) mEq/L Carbon Dioxide (23-29) mEq/L BUN (6-20) mg/dL Creatinine (0.60-1.20) mg/dL Est GFR ( Amer) (> 60) Est GFR (Non-Af Amer) (> 60) BUN/Creatinine Ratio (6-26) Glucose (70-105) mg/dL POC Glucose 19 L* 18 L* 44 L* (70-99) mg/dL Calculated Osmolality (280-300) Lactic Acid (0.5-2.2) mmol/L Calcium (8.6-10.3) mg/dL Total Bilirubin (0.3-1.0) mg/dL Direct Bilirubin (0.0-0.2) mg/dL Indirect Bilirubin (0.0-1.2) mg/dL AST (13-39) Units/L ALT (7-52) Units/L Alkaline Phosphatase (34-104) Units/L Ammonia (16-53) mcmol/L Serum Total Protein (6.4-8.9) g/dL Albumin (3.5-5.7) g/dL Globulin (2.4-3.5) g/dL Albumin/Globulin Ratio (1.1-2.2) Lipase (11-82) Units/L 04/08/18 04/08/18 Range/Units 22:11 22:39 WBC (4.3-11.1) K/mcL RBC (3.82-4.97) M/mcL Hgb (11.5-15.4) g/dL Hct (35.3-44.9) % MCV (83.0-100.0) fL MCH (28.0-33.3) pg MCHC (31.6-35.5) g/dL RDW (11.5-14.5) % Plt Count (140-400) K/mcL MPV (9.4-12.4) fL Immature Gran % (0-4) % Seg Neutrophils % % Lymphocytes % % Monocytes % % Eosinophils % % Basophils % % Neutrophils # (1.6-8.9) K/mcL Lymphocytes # (0.6-4.6) K/mcL Monocytes # (0.0-1.3) K/mcL Eosinophils # (0.0-0.6) K/mcL Basophils # (0.0-0.2) K/mcL Sodium (136-145) mEq/L Potassium (3.5-5.1) mEq/L Chloride (98-107) mEq/L Carbon Dioxide (23-29) mEq/L BUN (6-20) mg/dL Creatinine (0.60-1.20) mg/dL Est GFR ( Amer) (> 60) Est GFR (Non-Af Amer) (> 60) BUN/Creatinine Ratio (6-26) Glucose (70-105) mg/dL POC Glucose 44 L* 87 (70-99) mg/dL Calculated Osmolality (280-300) Lactic Acid (0.5-2.2) mmol/L Calcium (8.6-10.3) mg/dL Total Bilirubin (0.3-1.0) mg/dL Direct Bilirubin (0.0-0.2) mg/dL Indirect Bilirubin (0.0-1.2) mg/dL AST (13-39) Units/L ALT (7-52) Units/L Alkaline Phosphatase (34-104) Units/L Ammonia (16-53) mcmol/L Serum Total Protein (6.4-8.9) g/dL Albumin (3.5-5.7) g/dL Globulin (2.4-3.5) g/dL Albumin/Globulin Ratio (1.1-2.2) Lipase (11-82) Units/L - Radiology Data Radiology results reviewed: Yes I reviewed the patient's radiology results. Abdomen/Pelvis CT 04/08/18 19:48 IMPRESSION: 1. Moderate volume of ascites with enlarging right pleural effusion and trace left pleural effusion. 2. Diverticulosis without scan evidence for diverticulitis. 3. Stable liver mass. 4. Coronary artery disease. D/ / Ronald Hearn MD / Ronald Hearn MD Interpreting Provider: Ronald Hearn MD Chest X-Ray 04/08/18 19:48 IMPRESSION: Cardiomegaly. White out lower half right lung in keeping with consolidation and pleural effusion. If clinically there is concern of underlying rib fracture, sternal or other acute traumatic abnormality of the chest, then additional evaluation with dedicated imaging of the area of interest versus CT chest should be considered. D/ / Michael Salazar / Michael Salazar Interpreting Provider: Michael Salazar Tibia/Fibula X-Ray 04/08/18 20:15 IMPRESSION: 1. No acute osseous abnormalities status post [id number] amputation. 2. Mild patellofemoral compartment degenerative changes. D/ / Jam Brunner MD / Jam Brunner MD Interpreting Provider: Jam Brunner MD Foot X-Ray 04/08/18 20:48 IMPRESSION: No convincing evidence of acute or new osteomyelitis. Small amount of lucent area involving base of the proximal phalanx of the 1st digit. If there is a persistent concern for osteomyelitis, MRI would be a more sensitive examination. No evidence of acute fracture or dislocation. Diffuse osteopenia. D/ / 04/08/2018 21:50:20 Xavi White MD / Albertina Carroll Interpreting Provider: Xavi White MD Attestation Statement - Attestation Attestation: I, Nagi Mooney DO, examined this patient [id number] and my medical decision-making was reviewed with Dr. Janeth Temple , Resident Physician. I agree with the documented findings, disposition and treatment plan as described except to the extent set forth below. Please see my progress notes for details.
[2018-04-08 20:09] LABS: Basophils % 0.2 %; Eosinophils # 0.1 K/mcL (0.0-0.6); Eosinophils % 0.9 %; Hematocrit 39.1 % (35.3-44.9); Immature Granulocytes % 0.5 % (0-4); Lymphocytes # 1.9 K/mcL (0.6-4.6); Lymphocytes % 18.5 %; Mean Corpuscular HGB Conc 30.7 g/dL (31.6-35.5); Mean Corpuscular Volume 81.5 fL (83.0-100.0); Mean Platelet Volume 10.2 fL (9.4-12.4); Monocytes # 0.6 K/mcL (0.0-1.3); Monocytes % 6.3 %; Neutrophils # 7.5 K/mcL (1.6-8.9); Platelet Count 250 K/mcL (140-400); Red Cell Distribution Width 15.8 % (11.5-14.5); Segmented Neutrophils % 73.6 %
[2018-04-08 20:29] LABS: BUN/Creatinine Ratio 39 (6-26); Blood Urea Nitrogen 19 mg/dL (6-20); Calcium 8.8 mg/dL (8.6-10.3); Carbon Dioxide 27 mEq/L (23-29); Chloride 105 mEq/L (98-107); Glucose 60 mg/dL (70-105); Osmolality,Calculated 286 (280-300); Potassium 3.9 mEq/L (3.5-5.1); Sodium 138 mEq/L (136-145); eGFR For Non-African Americans > 60 (> 60)
--- NOTE | 2018-04-08 20:58 | Emergency Department Note ---
Disposition Clinical Impression: Hypoglycemia, Infection (chronic) of amputation stump, Nausea Disposition: Admitted As Inpatient Condition: Fair Time of Disposition: 23:17 General Adult HPI - General Chief complaint: ED Altered Mental Status Stated complaint: Low Blood Sugar Time Seen by Provider: 04/08/18 19:48 Source: patient, EMS Mode of arrival: private vehicle Limitations: no limitations - History of Present Illness Pain Scale: 10 - Related Data Home Medications Medication Instructions Recorded Confirmed Sertraline [Zoloft] 100 mg PO DAILY 10/15/14 04/08/18 Omeprazole [PriLOSEC] 20 mg PO DAILY 06/19/16 04/08/18 Insulin Aspart Prot/Insuln Asp 80 unit SQ BID 08/03/17 04/08/18 [Novolog Mix 70-30 Vial] OxyCODONE/APAP 5/325 [Percocet 1 tab PO TID PRN 08/03/17 04/08/18 5/325 MG] Previous Rx's Medication Instructions Recorded Furosemide [Lasix] 20 mg PO DAILY #30 tablet 01/29/18 Allergies Allergy/AdvReac Type Severity Reaction Status Date / Time No Known Allergies Allergy Verified 08/03/17 21:31 Constitutional: Denies: fever, chills Eyes: Denies: vision change ENT ED: Denies: throat pain, congestion Cardiovascular: Denies: chest pain, palpitations Respiratory: Denies: cough, dyspnea Gastrointestinal: Reports: abdominal pain, nausea. 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 - Social History Smoking Status: Former smoker Smokeless Tobacco Status: No Alcohol use: Reports: none Drug use: Reports: none Physical Exam - General Limitations: no limitations General appearance: alert, in distress (moderate) Course Vital Signs Temperature 97.4 F L 04/08/18 19:44 Pulse Rate 79 04/08/18 19:44 Respiratory Rate 18 04/08/18 19:44 Blood Pressure 146/77 04/08/18 19:44 O2 Sat by Pulse Oximetry 94 04/08/18 19:44 Temperature 97.4 F L 04/08/18 19:44 Pulse Rate 86 04/08/18 23:16 Respiratory Rate 20 04/08/18 23:16 Blood Pressure 149/77 04/08/18 23:16 O2 Sat by Pulse Oximetry 96 04/08/18 23:16 Oxygen Delivery Oxygen Delivery Nasal Cannula Medical Decision Making - Lab Data Result diagrams: 04/08/18 19:55 04/08/18 19:55 Lab Results 04/08/18 04/08/18 04/08/18 Range/Units 19:44 19:55 19:55 WBC 10.2 (4.3-11.1) K/mcL RBC 4.80 (3.82-4.97) M/mcL Hgb 12.0 (11.5-15.4) g/dL Hct 39.1 (35.3-44.9) % MCV 81.5 L (83.0-100.0) fL MCH 25.0 L (28.0-33.3) pg MCHC 30.7 L (31.6-35.5) g/dL RDW 15.8 H (11.5-14.5) % Plt Count 250 (140-400) K/mcL MPV 10.2 (9.4-12.4) fL Immature Gran % 0.5 (0-4) % Seg Neutrophils % 73.6 % Lymphocytes % 18.5 % Monocytes % 6.3 % Eosinophils % 0.9 % Basophils % 0.2 % Neutrophils # 7.5 (1.6-8.9) K/mcL Lymphocytes # 1.9 (0.6-4.6) K/mcL Monocytes # 0.6 (0.0-1.3) K/mcL Eosinophils # 0.1 (0.0-0.6) K/mcL Basophils # 0.0 (0.0-0.2) K/mcL Sodium 138 (136-145) mEq/L Potassium 3.9 (3.5-5.1) mEq/L Chloride 105 (98-107) mEq/L Carbon Dioxide 27 (23-29) mEq/L BUN 19 (6-20) mg/dL Creatinine 0.49 L (0.60-1.20) mg/dL Est GFR ( Amer) > 60 (> 60) Est GFR (Non-Af Amer) > 60 (> 60) BUN/Creatinine Ratio 39 H (6-26) Glucose 60 L (70-105) mg/dL POC Glucose 62 L (70-99) mg/dL Calculated Osmolality 286 (280-300) Lactic Acid (0.5-2.2) mmol/L Calcium 8.8 (8.6-10.3) mg/dL Total Bilirubin (0.3-1.0) mg/dL Direct Bilirubin (0.0-0.2) mg/dL Indirect Bilirubin (0.0-1.2) mg/dL AST (13-39) Units/L ALT (7-52) Units/L Alkaline Phosphatase (34-104) Units/L Ammonia (16-53) mcmol/L Serum Total Protein (6.4-8.9) g/dL Albumin (3.5-5.7) g/dL Globulin (2.4-3.5) g/dL Albumin/Globulin Ratio (1.1-2.2) Lipase (11-82) Units/L 04/08/18 04/08/18 04/08/18 Range/Units 21:03 21:03 21:03 WBC (4.3-11.1) K/mcL RBC (3.82-4.97) M/mcL Hgb (11.5-15.4) g/dL Hct (35.3-44.9) % MCV (83.0-100.0) fL MCH (28.0-33.3) pg MCHC (31.6-35.5) g/dL RDW (11.5-14.5) % Plt Count (140-400) K/mcL MPV (9.4-12.4) fL Immature Gran % (0-4) % Seg Neutrophils % % Lymphocytes % % Monocytes % % Eosinophils % % Basophils % % Neutrophils # (1.6-8.9) K/mcL Lymphocytes # (0.6-4.6) K/mcL Monocytes # (0.0-1.3) K/mcL Eosinophils # (0.0-0.6) K/mcL Basophils # (0.0-0.2) K/mcL Sodium (136-145) mEq/L Potassium (3.5-5.1) mEq/L Chloride (98-107) mEq/L Carbon Dioxide (23-29) mEq/L BUN (6-20) mg/dL Creatinine (0.60-1.20) mg/dL Est GFR ( Amer) (> 60) Est GFR (Non-Af Amer) (> 60) BUN/Creatinine Ratio (6-26) Glucose (70-105) mg/dL POC Glucose (70-99) mg/dL Calculated Osmolality (280-300) Lactic Acid 0.5 (0.5-2.2) mmol/L Calcium (8.6-10.3) mg/dL Total Bilirubin 1.0 (0.3-1.0) mg/dL Direct Bilirubin 0.2 (0.0-0.2) mg/dL Indirect Bilirubin 0.8 (0.0-1.2) mg/dL AST 18 (13-39) Units/L ALT 14 (7-52) Units/L Alkaline Phosphatase 98 (34-104) Units/L Ammonia 53 (16-53) mcmol/L Serum Total Protein 6.3 L (6.4-8.9) g/dL Albumin 3.9 (3.5-5.7) g/dL Globulin 2.4 (2.4-3.5) g/dL Albumin/Globulin Ratio 1.6 (1.1-2.2) Lipase < 3 L (11-82) Units/L 04/08/18 04/08/18 04/08/18 Range/Units 21:25 21:28 22:09 WBC (4.3-11.1) K/mcL RBC (3.82-4.97) M/mcL Hgb (11.5-15.4) g/dL Hct (35.3-44.9) % MCV (83.0-100.0) fL MCH (28.0-33.3) pg MCHC (31.6-35.5) g/dL RDW (11.5-14.5) % Plt Count (140-400) K/mcL MPV (9.4-12.4) fL Immature Gran % (0-4) % Seg Neutrophils % % Lymphocytes % % Monocytes % % Eosinophils % % Basophils % % Neutrophils # (1.6-8.9) K/mcL Lymphocytes # (0.6-4.6) K/mcL Monocytes # (0.0-1.3) K/mcL Eosinophils # (0.0-0.6) K/mcL Basophils # (0.0-0.2) K/mcL Sodium (136-145) mEq/L Potassium (3.5-5.1) mEq/L Chloride (98-107) mEq/L Carbon Dioxide (23-29) mEq/L BUN (6-20) mg/dL Creatinine (0.60-1.20) mg/dL Est GFR ( Amer) (> 60) Est GFR (Non-Af Amer) (> 60) BUN/Creatinine Ratio (6-26) Glucose (70-105) mg/dL POC Glucose 19 L* 18 L* 44 L* (70-99) mg/dL Calculated Osmolality (280-300) Lactic Acid (0.5-2.2) mmol/L Calcium (8.6-10.3) mg/dL Total Bilirubin (0.3-1.0) mg/dL Direct Bilirubin (0.0-0.2) mg/dL Indirect Bilirubin (0.0-1.2) mg/dL AST (13-39) Units/L ALT (7-52) Units/L Alkaline Phosphatase (34-104) Units/L Ammonia (16-53) mcmol/L Serum Total Protein (6.4-8.9) g/dL Albumin (3.5-5.7) g/dL Globulin (2.4-3.5) g/dL Albumin/Globulin Ratio (1.1-2.2) Lipase (11-82) Units/L 04/08/18 Range/Units 22:11 WBC (4.3-11.1) K/mcL RBC (3.82-4.97) M/mcL Hgb (11.5-15.4) g/dL Hct (35.3-44.9) % MCV (83.0-100.0) fL MCH (28.0-33.3) pg MCHC (31.6-35.5) g/dL RDW (11.5-14.5) % Plt Count (140-400) K/mcL MPV (9.4-12.4) fL Immature Gran % (0-4) % Seg Neutrophils % % Lymphocytes % % Monocytes % % Eosinophils % % Basophils % % Neutrophils # (1.6-8.9) K/mcL Lymphocytes # (0.6-4.6) K/mcL Monocytes # (0.0-1.3) K/mcL Eosinophils # (0.0-0.6) K/mcL Basophils # (0.0-0.2) K/mcL Sodium (136-145) mEq/L Potassium (3.5-5.1) mEq/L Chloride (98-107) mEq/L Carbon Dioxide (23-29) mEq/L BUN (6-20) mg/dL Creatinine (0.60-1.20) mg/dL Est GFR ( Amer) (> 60) Est GFR (Non-Af Amer) (> 60) BUN/Creatinine Ratio (6-26) Glucose (70-105) mg/dL POC Glucose 44 L* (70-99) mg/dL Calculated Osmolality (280-300) Lactic Acid (0.5-2.2) mmol/L Calcium (8.6-10.3) mg/dL Total Bilirubin (0.3-1.0) mg/dL Direct Bilirubin (0.0-0.2) mg/dL Indirect Bilirubin (0.0-1.2) mg/dL AST (13-39) Units/L ALT (7-52) Units/L Alkaline Phosphatase (34-104) Units/L Ammonia (16-53) mcmol/L Serum Total Protein (6.4-8.9) g/dL Albumin (3.5-5.7) g/dL Globulin (2.4-3.5) g/dL Albumin/Globulin Ratio (1.1-2.2) Lipase (11-82) Units/L Critical Care Time Critical Care Time: Yes Total Critical Care Time: 45 Attestation: Critical care performed: Time is exclusive of separately billable procedures. Time includes: direct patient care, patient reassessment, coordination of patient care, interpretation of data (laboratory data, radiology data, and respiratory data), review of patient's medical records, medical consultation and documentation of patient care. Procedures included in critical care time: Procedures excluded from critical care time: Attestation Statement - Attestation Attestation: I, Nagi Mooney DO, examined this patient [id number] and my medical decision-making was reviewed with Dr. Janeth Temple , Resident Physician. I agree with the documented findings, disposition and treatment plan as described except to the extent set forth below. Please see my progress notes for details. 57-year-old female presents emergency room for evaluation of a fall here at home as well as hypoglycemic event. Patient was in the kitchen and felt lightheaded and then fell down. The visualize event. She did not lose consciousness. She was slow to speak on arrival by EMS. Patient denies any headache or vision change at this time. Currently denying chest pain shortness of breath fevers or chills. Denies nausea vomiting or diarrhea. No other complaints or symptoms at this time. Glucose was given in-transit by EMS. IV access was obtained and D10. Patient's repeat Accu-Chek on arrival was 64. Patient was provided with the remainder of fluid and given a meal tray. Detailed workup for infectious etiology will be started this time. Patient is describing right-sided chest wall pain as well as abdominal discomfort. Her lungs are clear. Heart is regular. Abdomen is distended. She has no guarding or rigidity at this point. Extremities appear to be normal outside of the right lower extremity amputation. The prosthetic will be removed if any signs of wound. Patient also has a nonhealing wound on the left foot the will be a ddressed as well. Disposition will most likely be admission. See detailed documentation the physical exam, medical intervention, medical decision-making and disposition in the resident physician's note. No critical care by the patient's treatment course at this time. 2200 CT imaging of the abdomen shows stable ascites with no signs of inflammation or abnormality outside of the noted hemangioma to the liver. Patient has bilateral pleural effusion worse on the right than left. There is concern for possible rib fractures on the chest x-ray. Patient does have pain over that side. She did fall tonight. Unknown as to what she hit. While the patient is aware CAT scan her glucose dropped again. She was provided dextrose prior to arrival and was stable on arrival here. She was also given a meal at the bedside. She was not able to eat prior to going over for the imaging. On arrival back to his apartment her glucose was 18 1119. An amp of D50 was given and maintenance fluids with D5 half-normal saline were started. Patient is back to baseline mentation at this point. She has no other acute issues noted this time. The imaging of her leg as well as her left foot does not show any acute signs of osteomyelitis at this point. Patient will be started on vancomycin and Zosyn se condary to the possibility of pneumonia versus pulmonary related issues in the posterior aspect of the right amputation. Patient will be admitted for observation symptomatically control secondary to the fluctuating glucoses here in the emergency department. Patient is otherwise in no distress. She will monitor here in the emergency department to the hospitalist is contacted for admission process to be established. 2215 Patient had a repeat Accu-Chek was again 44 after the fluids were started and a dose of dextrose was given. Another dose of distress was started. Patient will have 45 minutes of critical care applied. The hospitalist Dr. Quiñones has been contacted for medical intervention and evaluation. No other recommendations or concerns noted this point. Patient will be admitted for symptomatic control and observation. Patient will be monitored here in the emergency room until admission process is completed.
[2018-04-08] MEDS ORDERED: *HR* Dextrose 50 % in Water (Syg) 50 ML SYRINGE IVP ONE ×3 (21:27→23:56)
[2018-04-08] MEDS ORDERED: *HR* Dextrose 50 % in Water (Syg) 50 ML SYRINGE ONE ×2 (21:29→22:11)
[2018-04-08] MEDS ORDERED: D5% in 0.45% NACL 1,000 ML IVC SCH (21:30)
[2018-04-08 21:45] LABS: Alanine Aminotransferase 14 Units/L (7-52); Albumin 3.9 g/dL (3.5-5.7); Albumin/Globulin Ratio 1.6 (1.1-2.2); Alkaline Phosphatase 98 Units/L (34-104); Aspartate Amino Transferase 18 Units/L (13-39); Bilirubin,Direct 0.2 mg/dL (0.0-0.2); Bilirubin,Indirect 0.8 mg/dL (0.0-1.2); Globulin 2.4 g/dL (2.4-3.5); Lipase < 3 Units/L (11-82); Total Protein 6.3 g/dL (6.4-8.9)
[2018-04-08] MEDS ORDERED: Piperacillin/Tazobactam 3.375 GM in 0.9 % Sodium Chloride Mini Bag 100 ML IVPB ONE (22:01)
[2018-04-08] MEDS ORDERED: Ondansetron 4 MG/2 ML VIAL IVP ONE (22:42)
[2018-04-09] MEDS ORDERED: Naloxone 0.4 MG/ML INJ IVP PRN (00:13)
[2018-04-09] MEDS ORDERED: Acetaminophen 325 MG TABLET PO PRN (00:16)
[2018-04-09 00:42] LABS: Bilirubin,Urine Negative (Negative); Blood,Urine Negative (Negative); Clarity,Urine Cloudy (Clear); Color,Urine Yellow (Yellow); Glucose,Urine (UA) 250 mg/dL (Normal); Ketones,Urine Negative (Negative); Leukocyte Esterase,Urine Negative (Negative); Nitrite,Urine Negative (Negative); Protein,Urine 30 mg/dL (Neg-Trace); Specific Gravity,Urine 1.025 (1.010-1.025); Urobilinogen,Urine Normal (Normal)
[2018-04-09 00:44] LABS: Bacteria,Urine Few per hpf (None-Few); Hyaline Casts,Urine None Seen per lpf (None-Few); Squamous Epithelial Cell,Urine Many per lpf (None-Few)
[2018-04-09] MEDS: *HR* OxyCODONE/APAP 5/325 TABLET PO PRN (01:44)
[2018-04-09] MEDS ORDERED: Dextrose 50 % in Water (Vial) 100 ML in D5% in 0.45% NACL 1,000 ML IVC SCH ×4 (02:30→05:38)
--- NOTE | 2018-04-09 02:42 | Internal Med History&Physical ---
Date of Encounter: 04/08/18 Time of Encounter: 23:40 Internal Medicine - H&P: HPI Chief complaint: low glucose; altered mental status Admitted From: Emergency Dept Plans for Post Hospital Care: Home History of present illness: Ms. Anthony Cook is a 57 year old female [facility] of weakness, near-syncope, and altered mental status. She was brought in the ER and noted to be hypoglycemic by squad. She received dextrose by squad and again in the ER. Because of persistent hypoglycemia, she was admitted to the hospitalist service for ongoing treatment. Of note, she did receive her home insulin this evening and has not eaten much the last couple days. Upon arrival to the floor, her glucose had again dropped significantly down to 31. I ordered an amp of D50 to be given and changed IV fluids to D10 concentration. Upon patient arrival to the floor, I came by shortly thereafter to assess patient. She is alert and oriented 3 and completely coherent. She recalls having the near syncopal spell and falling. She did not pass out completely. She did feel quite weak. She did not hit her head or anywhere except for her right-side of her ribs. She states she has not been eating much and not eating well the last few days but has been taking her insulin. She and her are in the process of moving, and she has been stressing over that lately. Additionally, she has been dealing with a left diabetic foot ulcer and also, more recently, right BKA stump ulceration and swelling. She denies any fevers. However, she complains of chills, sweats, and worsening generalized weakness. She also a hemangioma of her liver but denies any liver sequelae. I noted on her CT of abdomen and pelvis, as well as on exam, that she has evidence of ascites. She denies having had liver problems and follows regularly with MRI imaging of her hemangioma at [facility]. She does not drink alcohol and denies any prior history of hepatitis. She denies any history of GI bleeding or any complications of her diagnosis or of her cirrhosis. Past Med Surg Social Fam HX - Past Medical History Attestation: Yes The following information was validated with the patient. Source: patient, old records reviewed Medical history: diabetes, GERD, hyperlipidemia Additional medical history: hemangioma on liver. Psychiatric history: anxiety, depression - Past Surgical History Surgical History: cholecystectomy, other Additional surgical history: Right BKA - Social History Smoking Status: Former smoker Smokeless Tobacco Status: No Alcohol use: none Drug use: none Current living situation: Home, With Family Activity Level: Independent ambulation Recent Out of Country Travel Within the Last 8 Weeks: No - Family History Mother Living Status: Hx Family Cardiac Disorders: Yes Hx Family Respiratory Disorders: No Hx Family Cancer: Yes Hx Family GI Disorders: No Hx Family Endocrine Disorder: No Hx Family Neuromuscular Disorders: No Hx Family Neurologic Disorders: No Hx Family HEENT Disorders: No Hx Family Autoimmune Disorders: No Father Living Status: Hx Family Cardiac Disorders: Yes ([place]) Hx Family Endocrine Disorder: Yes Internal Medicine - H&P: Meds Sertraline [Zoloft] 100 mg PO DAILY 10/15/14 [History] Omeprazole [PriLOSEC] 20 mg PO DAILY 06/19/16 [History] Insulin Aspart Prot/Insuln Asp [Novolog Mix 70-30 Vial] 80 unit SQ BID 08/03/17 [History] OxyCODONE/APAP 5/325 [Percocet 5/325 MG] 1 tab PO TID PRN 08/03/17 [History] Furosemide [Lasix] 20 mg PO DAILY #30 tablet 01/29/18 [Rx] Allergy/AdvReac Type Severity Reaction Status Date / Time No Known Allergies Allergy Verified 08/03/17 21:31 - Constitutional Constitutional: chills, malaise, night sweats, weakness, no fever(s) - EENT Eyes: no blurry vision, no change in vision Ears: no tinnitus Nose, mouth and throat: no nasal congestion, no sore throat - Cardiovascular Cardiovascular ROS IM: lightheadedness, no chest pain, no dyspnea, no dyspnea on exertion, no syncope - Respiratory Respiratory: no cough, no chest congestion, no excessive phlegm production - Gastrointestinal Gastrointestinal: bloating, nausea, no abdominal pain, no diarrhea, no hematemesis, no hematochezia, no melena, no vomiting - Genitourinary Genitourinary: no dysuria, no flank pain, no hematuria - Musculoskeletal Musculoskeletal ROS IM: no arthralgias, no back pain - Integumentary Integumentary IM: new lesions (right BKA stump), no rash, no jaundice - Neurological Neurological ROS: confusion, dizziness, no convulsions, no focal weakness, no f requent falls, no headache(s) - Psychiatric Psychiatric: no anxiety, no depression - Endocrine Endocrine IM: no cold intolerance, no heat intolerance, no polydipsia, no polyuria - Allergic/Immunologic Allergic/Immunologic: no GI upset with certain foods - Constitutional Vitals: Temp Pulse Resp BP Pulse Ox 97.9 F 80 16 158/83 97 04/08/18 23:22 04/08/18 23:22 04/08/18 23:22 04/08/18 23:22 04/09/18 00:01 General appearance: Present: cooperative, A&O X 3, pleasant, answers questions appropriately Exam: A&Ox3 - Head Head exam: Present: atraumatic, normal inspection - Eye Eye exam: Present: EOMI, PERRL. Absent: scleral icterus - ENT ENT exam: Present: mucous membranes dry, normal exam, normal oropharynx - Neck Neck exam general surgery: Present: full ROM, supple. Absent: tenderness, nuchal rigidity, thyromegaly - Respiratory Respiratory exam: Present: CTAB. Absent: chest wall tenderness, rales, respiratory distress, rhonchi, wheezes - Cardiovascular Cardiovascular exam: Present: distant heart sounds, RRR, +S1, +S2, systolic murmur. Absent: diastolic murmur - GI/Abdominal GI/Abdominal exam: Present: distended, normal bowel sounds, soft. Absent: guarding, mass, tenderness Additional comments: + shifting dullness to percussion c/w ascites - Extremities Exam Extremities exam: Present: full ROM, normal capillary refill, warm, radial pulses palpable and symmetrical. Absent: calf tenderness, pedal edema Additional comments: left foot ulcer with mild redness and swelling; right BKA stump red, warm, tender, and with some skin breakdown - Back Exam Back exam: Absent: CVA tenderness (L), CVA tenderness (R) - Neurological Exam Neurological exam: Present: alert, CN II-XII intact, oriented X3, no focal d eficits - Psychiatric Psychiatric exam: Present: normal affect, normal mood - Skin Skin exam: Present: dry, warm Additional comments: left foot and right BKA stump as noted above -- red, swelling, with skin breakdown Internal Med - H&P Results - Labs CBC & Chem 7: 04/08/18 19:55 04/08/18 19:55 Labs: Short CBC 04/08/18 Range/Units 19:55 WBC 10.2 (4.3-11.1) K/mcL Hgb 12.0 (11.5-15.4) g/dL Hct 39.1 (35.3-44.9) % Plt Count 250 (140-400) K/mcL Neutrophils # 7.5 (1.6-8.9) K/mcL BMP 04/08/18 19:55 Sodium 138 Potassium 3.9 Chloride 105 Carbon Dioxide 27 BUN 19 Creatinine 0.49 L Glucose 60 L Calcium 8.8 Liver Function 04/08/18 Range/Units 21:03 Total Bilirubin 1.0 (0.3-1.0) mg/dL Direct Bilirubin 0.2 (0.0-0.2) mg/dL AST 18 (13-39) Units/L ALT 14 (7-52) Units/L Alkaline Phosphatase 98 (34-104) Units/L Albumin 3.9 (3.5-5.7) g/dL Urine 04/09/18 Range/Units 00:20 Urine Color Yellow (Yellow) Urine Clarity Cloudy A (Clear) Urine pH 6.0 (5.0-8.0) pH Units Ur Specific [place] 1.025 (1.010-1.025) Urine Protein 30 H (Neg-Trace) mg/dL Urine Glucose (UA) 250 H (Normal) mg/dL - Impressions ITS Impressions Abdomen/Pelvis CT 04/08/18 19:48 IMPRESSION: 1. Moderate volume of ascites with enlarging right pleural effusion and trace left pleural effusion. 2. Diverticulosis without scan evidence for diverticulitis. 3. Stable liver mass. 4. Coronary artery disease. D/ / Ronald Hearn MD / Ronald Hearn MD Interpreting Provider: Ronald Hearn MD Chest X-Ray 04/08/18 19:48 IMPRESSION: Cardiomegaly. White out lower half right lung in keeping with consolidation and pleural effusion. If clinically there is concern of underlying rib fracture, sternal or other acute traumatic abnormality of the chest, then additional evaluation with dedicated imaging of the area of interest versus CT chest should be considered. D/ / Michael Salazar / Michael Salazar Interpreting Provider: Michael Salazar Tibia/Fibula X-Ray 04/08/18 20:15 IMPRESSION: 1. No acute osseous abnormalities status post [id number] amputation. 2. Mild patellofemoral compartment degenerative changes. D/ / Jam Brunner MD / Jam Brunner MD Interpreting Provider: Jam Brunner MD Foot X-Ray 04/08/18 20:48 IMPRESSION: No convincing evidence of acute or new osteomyelitis. Small amount of lucent area involving base of the proximal phalanx of the 1st digit. If there is a persistent concern for osteomyelitis, MRI would be a more sensitive examination. No evidence of acute fracture or dislocation. Diffuse osteopenia. D/ / 04/08/2018 21:50:20 Xavi White MD / Albertina Carroll Interpreting Provider: Xavi White MD - Diagnostic Studies Chest x-ray Status: image reviewed by me (caridomegaly; right pleural effusion) - Assessment and plan (1) Hypoglycemia Current Visit: Yes Status: Acute Assessment and plan: 1. Continuous IVF with dextrose. 2. Frequent glucose checks. 3. Adjust dextrose drip as glucose levels stabilize. 4. Hold home insulin until glucose stabilized. (2) Diabetic foot ulcer Current Visit: Yes Status: Acute Assessment and plan: 1. Blood cultures ordered. 2. IV antibiotics ordered. 3. Consult podiatry for assistance in management. Qualifiers: Diabetic foot ulcer location: midfoot Diabetes mellitus type: type 1 Laterality: left Non-pressure ulcer stage: limited to breakdown of skin Qualified Code(s): E10.621 - Type 1 diabetes mellitus with foot ulcer; L97.421 - Non-pressure chronic ulcer of left heel and midfoot limited to breakdown of skin (3) Infection (chronic) of amputation stump Current Visit: Yes Status: Acute Assessment and plan: 1. Cultures and antibiotics as above. 2. Podiatry consult and wound care consult. (4) Ascites Current Visit: Yes Status: Acute Assessment and plan: 1. Consult GI and order LFT's. 2. May benefit from paracentesis. 3. Patient follows with [facility] for liver hemangioma. Qualifiers: Ascites type: other type Qualified Code(s): R18.8 - Other ascites (5) DVT prophylaxis Current Visit: Yes Status: Acute Assessment and plan: 1. Heparin SQ.
[2018-04-09] MEDS ORDERED: Aminoglycoside Consult 1 EACH MC ONE (07:35)
[2018-04-09 07:47] LABS: Basophils % 0.2 %; Eosinophils # 0.1 K/mcL (0.0-0.6); Eosinophils % 1.5 %; Hematocrit 39.2 % (35.3-44.9); Hemoglobin 11.8 g/dL (11.5-15.4); Immature Granulocytes % 0.5 % (0-4); Lymphocytes # 1.4 K/mcL (0.6-4.6); Lymphocytes % 15.5 %; Mean Corpuscular HGB Conc 30.1 g/dL (31.6-35.5); Mean Corpuscular Hemoglobin 24.5 pg (28.0-33.3); Mean Corpuscular Volume 81.3 fL (83.0-100.0); Mean Platelet Volume 10.2 fL (9.4-12.4); Monocytes # 0.6 K/mcL (0.0-1.3); Neutrophils # 7.1 K/mcL (1.6-8.9); Platelet Count 254 K/mcL (140-400); Red Blood Count 4.82 M/mcL (3.82-4.97); Red Cell Distribution Width 15.6 % (11.5-14.5); Segmented Neutrophils % 76.3 %
[2018-04-09 07:59] LABS: INR 1.2; Prothrombin Time 13.6 Seconds (9.4-12.1)
[2018-04-09] MEDS ORDERED: Piperacillin/Tazobactam 3.375 GM in 0.9 % Sodium Chloride Mini Bag 100 ML IVPB SCH (08:00)
[2018-04-09 08:02] LABS: Activated Partial Thrombo Time 29.5 Seconds (26.0-36.0)
[2018-04-09 08:07] LABS: Alanine Aminotransferase 14 Units/L (7-52); Albumin 3.7 g/dL (3.5-5.7); Albumin/Globulin Ratio 1.6 (1.1-2.2); Alkaline Phosphatase 93 Units/L (34-104); Aspartate Amino Transferase 16 Units/L (13-39); BUN/Creatinine Ratio 28 (6-26); Blood Urea Nitrogen 13 mg/dL (6-20); Calcium 8.6 mg/dL (8.6-10.3); Carbon Dioxide 28 mEq/L (23-29); Chloride 108 mEq/L (98-107); Globulin 2.3 g/dL (2.4-3.5); Glucose 134 mg/dL (70-105); Magnesium 2.2 mg/dL (1.6-2.6); Osmolality,Calculated 294 (280-300); Potassium 3.9 mEq/L (3.5-5.1); Sodium 141 mEq/L (136-145); eGFR For Non-African Americans > 60 (> 60)
--- NOTE | 2018-04-09 08:47 | Internal Med Progress Note ---
<Faizan Rodriguez - Last Filed: 04/09/18 13:12> Hospitalist Progress Note - Encounter Date of Encounter: 04/09/18 Time of Encounter: 09:10 - Subjective Interval History: Patient was seen and examined at bedside this morning. She states that overall she feels much better. She feels back to her normal self although is hesitant to return home this early as her blood sugars have been difficult to control the last couple of days. She states that she has had a low appetite and increased stress due to moving to a new home. She also states that she has been exerting herself lifting boxes in association with this move. She denies previous hypoglycemic events and has been compliant with her medications. She also states that she has chronic swelling in her abdomen related to her hemangioma, this is at baseline. She follows at [facility] for this. She denies any symptoms of fevers, chills, chest pain, shortness of breath, dizziness, lightheadedness, nausea, vomiting. She did eat breakfast and tolerated it well. - Exam Vitals: Temp Pulse Resp BP Pulse Ox 98.2 F 82 18 138/78 95 04/09/18 07:15 04/09/18 07:15 04/09/18 07:15 04/09/18 07:15 04/09/18 07:15 Exam: Gen.: Vitals noted. No acute distress. AAOx3, resting comfortably in bed. Cardiac: RRR, no murmur, +S1/S2, No BLE edema Pulmonary: Diminished at bases. Otherwise CTA bilaterally, no wheezes, rales or rhonchi, equal chest expansion, unlabored breathing Abdomen: soft, nontender, BS diminished, no guarding, no palpable HSM. Positive fluid wave and distention without tympany Skin: warm and dry, no visible lesions. MSK: ROM not assessed, no joint swelling noted, gait no assessed while in bed. Non tender calf or clubbing. Right BKA, left foot with covered ulcer. No erythema appreciated. No drainage. Left hand missing digits. Neuro: A&Ox3, moves all extremities, no focal deficits Psych: Appropriate mood and behavior, AOx3 - Assessment and Plan (1) Altered mental status Current Visit: Yes Status: Resolved Assessment and Plan: - Resolved - Most likely secondary to hypoglycemia - No focal deficits to suspect neurologic etiology. Nonseptic appearing - LFTs within normal limits and ammonia within normal limits at 53 - We will continue monitor (2) Hypoglycemia Current Visit: Yes Status: Resolved Assessment and Plan: - Resolved - Patient presented with blood sugars as low as 18 on this admission - Patient is insulin-dependent at home on 70/30 80 units BID - Likely etiology is continued insulin use despite poor appetite and physical exertion - Patient has a previous history of poorly controlled diabetes with an A1c of 12.1% on 01/24/18 and multiple amputations - Have low suspicion for infectious etiology at this time - Blood sugars have improved with most recent of 93 - Patient is tolerating diet Plan - We will continue to encourage diet - We will continue home insulin at half dose of 40 units twice a day - Continue monitor with every 2 hour blood sugar draws. Anticipate decrease as blood sugar stabilizes - We will monitor overnight with possible discharge tomorrow (3) Ascites Current Visit: Yes Status: Acute Assessment and Plan: - Secondary to hepatic hemangioma and mass effect - Follows at [facility] - Patient states this is chronic - We will continue monitor and attempt a paracentesis this afternoon. If unable to find adequate pocket, we will consult interventional radiology (4) Hemangioma of liver Current Visit: Yes Status: Chronic Assessment and Plan: - Patient is known history and follows with [facility] - Last MRI reportedly 2 years ago - Patient reportedly does have chronic ascites secondary to this - Continue management as outpatient - GI has evaluated recommends follow-up as outpatient with possible paracentesis (5) Insulin dependent diabetes mellitus Current Visit: Yes Status: Chronic Assessment and Plan: As above for hypoglycemia -We will continue home insulin at decreased dose (6) Infection (chronic) of amputation stump Current Visit: Yes Status: Acute Assessment and Plan: - As noted in previous documentation - Follows with Dr. 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 Lenz - Continue wound care - We will discontinue antibiotics pending recommendations from podiatry (8) Pleural effusion, right Current Visit: Yes Status: Acute Assessment and Plan: As above, likely related to ascites (9) DVT prophylaxis Current Visit: Yes Status: Acute Assessment and Plan: Subcutaneous heparin - Time Spent with Patient Total time spent is greater than 50% in coordination of care (as documented) at patient's floor/unit and/or counseling patient: Internal Medicine: Result - Labs CBC & Chem 7: 04/09/18 07:16 04/09/18 07:16 Labs: Short CBC 04/08/18 04/09/18 Range/Units 19:55 07:16 WBC 10.2 9.2 (4.3-11.1) K/mcL Hgb 12.0 11.8 (11.5-15.4) g/dL Hct 39.1 39.2 (35.3-44.9) % Plt Count 250 254 (140-400) K/mcL Neutrophils # 7.5 7.1 (1.6-8.9) K/mcL BMP 04/08/18 04/09/18 19:55 07:16 Sodium 138 141 Potassium 3.9 3.9 Chloride 105 108 H Carbon Dioxide 27 28 BUN 19 13 Creatinine 0.49 L 0.46 L Glucose 60 L 134 H Calcium 8.8 8.6 Liver Function 04/08/18 04/09/18 Range/Units 21:03 07:16 Total Bilirubin 1.0 1.0 (0.3-1.0) mg/dL Direct Bilirubin 0.2 (0.0-0.2) mg/dL AST 18 16 (13-39) Units/L ALT 14 14 (7-52) Units/L Alkaline Phosphatase 98 93 (34-104) Units/L Albumin 3.9 3.7 (3.5-5.7) g/dL Urine 04/09/18 Range/Units 00:20 Urine Color Yellow (Yellow) Urine Clarity Cloudy A (Clear) Urine pH 6.0 (5.0-8.0) pH Units Ur Specific [place] 1.025 (1.010-1.025) Urine Protein 30 H (Neg-Trace) mg/dL Urine Glucose (UA) 250 H (Normal) mg/dL - ABG Interpretation ABG results: PT/INR, D-dimer PT 13.6 Seconds (9.4-12.1) H 04/09/18 07:16 - Impressions Impressions Abdomen/Pelvis CT 04/08/18 19:48 IMPRESSION: 1. Moderate volume of ascites with enlarging right pleural effusion and trace left pleural effusion. 2. Diverticulosis without scan evidence for diverticulitis. 3. Stable liver mass. 4. Coronary artery disease. D/ / Ronald Hearn MD / Ronald Hearn MD Interpreting Provider: Ronald Hearn MD Chest X-Ray 04/08/18 19:48 IMPRESSION: Cardiomegaly. White out lower half right lung in keeping with consolidation and pleural effusion. If clinically there is concern of underlying rib fracture, sternal or other acute traumatic abnormality of the chest, then additional evaluation with dedicated imaging of the area of interest versus CT chest should be considered. D/ / Michael Salazar / Michael Salazar Interpreting Provider: Michael Salazar Tibia/Fibula X-Ray 04/08/18 20:15 IMPRESSION: 1. No acute osseous abnormalities status post [id number] amputation. 2. Mild patellofemoral compartment degenerative changes. D/ / Jam Brunner MD / Jam Brunner MD Interpreting Provider: Jam Brunner MD Foot X-Ray 04/08/18 20:48 IMPRESSION: No convincing evidence of acute or new osteomyelitis. Small amount of lucent area involving base of the proximal phalanx of the 1st digit. If there is a persistent concern for osteomyelitis, MRI would be a more sensitive examination. No evidence of acute fracture or dislocation. Diffuse osteopenia. D/ / 04/08/2018 21:50:20 Xavi White MD / Albertina Carroll Interpreting Provider: Xavi White MD Consult Discharge Plan - Plan Referrals: Almas Ac DO [Non-Partnered Physician] - 04/17/18 3:20 pm <Melina Xiong - Last Filed: 04/10/18 08:04> Hospitalist Progress Note - Encounter Date of Encounter: 04/09/18 Time of Encounter: 10:00 - Exam Vitals: Temp Pulse Resp BP Pulse Ox 98.1 F 84 16 149/85 98 04/10/18 07:06 04/10/18 07:06 04/10/18 07:06 04/10/18 07:06 04/10/18 07:06 - Assessment and Plan (1) Ascites Current Visit: Yes Status: Acute (2) Hypoglycemia Current Visit: Yes Status: Resolved (3) Infection (chronic) of amputation stump Current Visit: Yes Status: Acute (4) Diabetic foot ulcer Current Visit: Yes Status: Acute (5) DVT prophylaxis Current Visit: Yes Status: Acute - Time Spent with Patient Total time spent is greater than 50% in coordination of care (as documented) at patient's floor/unit and/or counseling patient: Internal Medicine: Result - Labs CBC & Chem 7: 04/09/18 07:16 04/10/18 03:49 Labs: BMP 04/09/18 04/10/18 07:16 03:49 Sodium 141 141 Potassium 3.9 4.2 Chloride 108 H 107 Carbon Dioxide 28 29 BUN 13 14 Creatinine 0.46 L 0.55 L Glucose 134 H 130 H Calcium 8.6 8.8 Liver Function 04/09/18 Range/Units 07:16 Total Bilirubin 1.0 (0.3-1.0) mg/dL AST 16 (13-39) Units/L ALT 14 (7-52) Units/L Alkaline Phosphatase 93 (34-104) Units/L Albumin 3.7 (3.5-5.7) g/dL - ABG Interpretation ABG results: PT/INR, D-dimer PT 14.1 Seconds (9.4-12.1) H 04/10/18 03:49 - Impressions Impressions Foot X-Ray 04/08/18 20:48 IMPRESSION: 1. No convincing evidence of acute or new osteomyelitis. Unchanged small amount of lucent area involving base of proximal phalanx of 1st digit. If there is a persistent concern for osteomyelitis, MRI would be a more sensitive examination. 2. No evidence of acute fracture or dislocation. 3. Diffuse osteopenia. D/ / 04/08/2018 21:50:20 Xavi White MD / Albertina Carroll Interpreting Provider: Xavi White MD - Attending Attestation I saw evaluated and examined this patient and my medical decision-making was reviewed with the Resident Physician, Faizan Rodriguez. I agree with the documented findings, disposition and treatment plan as described except to any changes set forth below. We independently had [id number] contact with the patient. Patient hospitalized with episodes of hypoglycemia. She reports that most of it because she has been in the process of moving and has been more active than usual while taking her insulin. She has a chronic left foot ulcer which has not changed in appearance and she has not noticed any discharge. She follows up with wound care as outpatient. She denies any fevers or chills. She is feeling much better now that her blood sugars are improving. General: Patient is alert, no acute distress, oriented x 3 ENT: Mucous membranes moist Respiratory: Good respiratory effort. Normal breath sounds. No wheezing or crackles. Cardiovascular: Regular rate and rhythm. s1 and s2 normal No clicks, rubs, gallops, or murmurs. No pedal edema Abdomen: Abdomen is soft, distended with fluid thrill nontender. Bowel sounds are present Musculoskeletal: Spontaneously moving all extremities , left foot bandaged. Right BKA stump has signs of superficial laceration wound without any drainage or signs of infection. Skin: warm, dry, intact. Neuro: Alert oriented x 3 normal cranial nerves, no focal deficits Acute metabolic encephalopathy: Due to hypoglycemia. Patient is getting ranjeet r overall. Resolving. Hypoglycemia: Due to insulin and diet and activity mismatch. Continue monit oring blood sugars. Diabetes mellitus: Insulin-dependent. Monitor blood sugars. Resume insulin on ce her blood sugars stabilize and are normal. Ascites: GI consult appreciated. Attempted paracentesis. However large enough pocket unable to be identified. We will consult interventional radiology. Hemangioma of the liver: GI consult appreciated. Infection of amputation stump: Continue superficial wound care. Known indication for systemic antibiotics. Left Diabetic foot ulcer: Continue local wound care. Follow up with podiatry as outpatient. Right Pleural effusion: Due to cirrhosis. No indication for paracentesis at this time. DVT prophylaxis with subcutaneous heparin <Faizan Rodriguez - Last Filed: 04/09/18 13:12> (1) Altered mental status Qualifiers: Altered mental status type: somnolence Qualified Code(s): R40.0 - Somnolence (3) Ascites Qualifiers: Ascites type: other type Qualified Code(s): R18.8 - Other ascites <Melina Xiong - Last Filed: 04/10/18 08:04> (1) Ascites Qualifiers: Ascites type: other type Qualified Code(s): R18.8 - Other ascites (4) Diabetic foot ulcer Qualifiers: Diabetic foot ulcer location: midfoot Diabetes mellitus type: type 1 Laterality: left Non-pressure ulcer stage: limited to breakdown of skin Qualified Code(s): E10.621 - Type 1 diabetes mellitus with foot ulcer; L97.421 - Non-pressure chronic ulcer of left heel and midfoot limited to breakdown of skin
[2018-04-09 09:28] LABS: C-Reactive Protein 18 mg/L (Less than 10)
--- NOTE | 2018-04-09 10:35 | Gastroenterology Consult Note ---
<Sergei Jaramillo Felipa - Last Filed: 04/09/18 10:33> Date of Encounter: 04/09/18 Time of Encounter: 09:25 - Assessment and plan (1) Ascites Current Visit: Yes Status: Acute Assessment and plan: CT A/P with moderate volume of ascites and stable liver mass. Complete paracentesis. Qualifiers: Ascites type: other type Qualified Code(s): R18.8 - Other ascites (2) Hemangioma of liver Current Visit: No Status: Chronic Assessment and plan: CT A/P with moderate volume of ascites and stable liver mass. CT A/P 08/03/2017 with right hepatic lobe mass measuring 15 x 9 cm and ascites. MRI 05/05/2012 at [facility] with 26 cm most likely hepatic adenoma, ascites likely reactive, couple small left lobe enhancing foci small vascular shunt versus flash filling hemangioma. LFTs WNL. Last MRI 2 years ago at [facility] per patient report. Dr. Martinez will review the CT images. Follow up with [facility]. - Time Spent With Patient Total time spent is greater than 50% in coordination of care (as documented) at patient's floor/unit and/or counseling patient: GI History of Present Illness - Data of Consult Patient: new to practice Consult date: 04/09/18 Requesting Physician: Melina Xiong MD - Consult Narrative Reason for consult: Liver hemangioma History of present illness: Ms. Anthony Cook is a 57 year old female with PMHx of DM, GERD, HLD, hemangioma of liver, right BKA 06/30/2016 who presented to the ED with complaints of weakness, near-syncope, altered mental status, and hypoglycemia. We have been consulted to evaluate her liver hemagioma and ascites. CT A/P with moderate volume of ascites and stable liver mass. CT A/P 08/03/2017 with right hepatic lobe mass measuring 15 x 9 cm and ascites. MRI 05/05/2012 at [facility] with 26 cm most likely hepatic adenoma, ascites likely reactive, couple small left lobe enhancing foci small vascular shunt versus flash filling hemangioma. Patient states she follows with [facility] for her hemangioma. She states her last MRI was 2 years ago. Procedures: None NSAIDs: None Anticoagulation: None Past Med Surg Social Fam HX - Past Medical History Medical history: diabetes, GERD, hyperlipidemia Additional medical history: hemangioma on liver. Psychiatric history: anxiety, depression - Past Surgical History Surgical History: cholecystectomy, other Additional surgical history: Right BKA - Social History Smoking Status: Former smoker Smokeless Tobacco Status: No Alcohol use: none Drug use: none - Family History Mother Living Status: Hx Family Cardiac Disorders: Yes Hx Family Respiratory Disorders: No Hx Family Cancer: Yes Hx Family GI Disorders: No Hx Family Endocrine Disorder: No Hx Family Neuromuscular Disorders: No Hx Family Neurologic Disorders: No Hx Family HEENT Disorders: No Hx Family Autoimmune Disorders: No Father Living Status: Hx Family Cardiac Disorders: Yes (MD) Hx Family Endocrine Disorder: Yes - Gastrointestinal Gastrointestinal: Present: as per HPI - Constitutional Constitutional: as per HPI - EENT Eyes: as per HPI Ears: Present: as per HPI Nose, mouth and throat: Present: as per HPI - Cardiovascular Cardiovascular ROS: Present: as per HPI - Respiratory Respiratory IM: Present: as per HPI - Genitourinary Genitourinary: Absent: change in color, Urinary frequency - Neurological ROS Neurological GI: Present: as per HPI - Hematologic/Lymphatic Hematologic/Lymphatic pediatric: Present: as per HPI - Musculoskeletal Musculoskeletal ROS GI: Present: as per HPI - Integumentary Integumentary GI: Present: as per HPI - Psychiatric ROS Psychiatric GI: Present: as per HPI - Endocrine Endocrine IM: Present: as per HPI - Constitutional Vitals: Temp Pulse Resp BP Pulse Ox 98.2 F 86 18 138/78 95 04/09/18 07:15 04/09/18 09:23 04/09/18 07:15 04/09/18 07:15 04/09/18 09:23 General appearance: Present: cooperative, A&O X 3, no acute distress, answers questions appropriately - Head Head exam: Present: atraumatic, normocephalic - Eye Eye exam: Present: normal appearance, sclera anicteric - ENT ENT exam: Present: mucous membranes dry - Neck Neck exam general surgery: Present: normal inspection, trachea midline - Respiratory Respiratory exam: Present: CTAB. Absent: rales, rhonchi - Cardiovascular Cardiovascular exam: Present: RRR, +S1, +S2 - GI/Abdominal GI/Abdominal exam: Present: distended, soft, no peritoneal signs. Absent: firm, guarding, tenderness - Expanded GI/Abdominal Exam GI/Abdominal exam expanded: Present: ascites - Rectal Rectal exam: Present: deferred - Extremities Exam Extremities exam: Present: warm Additional comments: Right BKA, left foot with dressing - Neurological Exam Neurological exam: Present: no focal deficits - Psychiatric Psychiatric exam: Present: normal affect, normal mood - Skin Skin exam: Present: dry, intact, normal color, warm Results - Labs CBC & Chem 7: 04/09/18 07:16 04/09/18 07:16 Labs: Last Result ESR 15 mm/hr (0-15) 04/09/18 07:16 Calcium 8.6 mg/dL (8.6-10.3) 04/09/18 07:16 C-Reactive Protein 18 mg/L (Less than 10) H 04/09/18 07:16 Entire Visit Hgb 11.8 g/dL (11.5-15.4) 04/09/18 07:16 Hct 39.2 % (35.3-44.9) 04/09/18 07:16 PT 13.6 Seconds (9.4-12.1) H 04/09/18 07:16 Total Bilirubin 1.0 mg/dL (0.3-1.0) 04/09/18 07:16 AST 16 Units/L (13-39) 04/09/18 07:16 ALT 14 Units/L (7-52) 04/09/18 07:16 Ammonia 53 mcmol/L (16-53) 04/08/18 21:03 Lipase < 3 Units/L (11-82) L 04/08/18 21:03 - ABG ABG results: PT/INR, D-dimer PT 13.6 Seconds (9.4-12.1) H 04/09/18 07:16 - Impressions Impressions Abdomen/Pelvis CT 04/08/18 19:48 IMPRESSION: 1. Moderate volume of ascites with enlarging right pleural effusion and trace left pleural effusion. 2. Diverticulosis without scan evidence for diverticulitis. 3. Stable liver mass. 4. Coronary artery disease. D/ / Ronald Hearn MD / Ronald Hearn MD Interpreting Provider: Ronald Hearn MD Chest X-Ray 04/08/18 19:48 IMPRESSION: Cardiomegaly. White out lower half right lung in keeping with consolidation and pleural effusion. If clinically there is concern of underlying rib fracture, sternal or other acute traumatic abnormality of the chest, then additional evaluation with dedicated imaging of the area of interest versus CT chest should be considered. D/ / Michael Salazar / Michael Salazar Interpreting Provider: Michael Salazar Tibia/Fibula X-Ray 04/08/18 20:15 IMPRESSION: 1. No acute osseous abnormalities status post [id number] amputation. 2. Mild patellofemoral compartment degenerative changes. D/ / Jam Brunner MD / Jam Brunner MD Interpreting Provider: Jam Brunner MD Foot X-Ray 04/08/18 20:48 IMPRESSION: No convincing evidence of acute or new osteomyelitis. Small amount of lucent area involving base of the proximal phalanx of the 1st digit. If there is a persistent concern for osteomyelitis, MRI would be a more sensitive examination. No evidence of acute fracture or dislocation. Diffuse osteopenia. D/ / 04/08/2018 21:50:20 Xavi White MD / Albertina Carroll Interpreting Provider: Xavi White MD Consult Discharge Plan - Plan Referrals: Almas Ac DO [Non-Partnered Physician] - 04/17/18 3:20 pm <Jim Martinez - Last Filed: 04/09/18 22:22> Date of Encounter: 04/09/18 Time of Encounter: 17:45 - Time Spent With Patient Total time spent is greater than 50% in coordination of care (as documented) at patient's floor/unit and/or counseling patient: GI History of Present Illness - Data of Consult Requesting Physician: Melina Xiong MD - Consult Narrative History of present illness: Ms. Anthony Cook is a 57 year old female - Constitutional Vitals: Temp Pulse Resp BP Pulse Ox 97.6 F 87 18 126/76 90 04/09/18 19:23 04/09/18 19:23 04/09/18 19:23 04/09/18 19:23 04/09/18 19:23 Results - Labs CBC & Chem 7: 04/09/18 07:16 04/09/18 07:16 Labs: Last Result ESR 15 mm/hr (0-15) 04/09/18 07:16 Calcium 8.6 mg/dL (8.6-10.3) 04/09/18 07:16 C-Reactive Protein 18 mg/L (Less than 10) H 04/09/18 07:16 Entire Visit Hgb 11.8 g/dL (11.5-15.4) 04/09/18 07:16 Hct 39.2 % (35.3-44.9) 04/09/18 07:16 PT 13.6 Seconds (9.4-12.1) H 04/09/18 07:16 Total Bilirubin 1.0 mg/dL (0.3-1.0) 04/09/18 07:16 AST 16 Units/L (13-39) 04/09/18 07:16 ALT 14 Units/L (7-52) 04/09/18 07:16 Ammonia 53 mcmol/L (16-53) 04/08/18 21:03 Lipase < 3 Units/L (11-82) L 04/08/18 21:03 - ABG ABG results: PT/INR, D-dimer PT 13.6 Seconds (9.4-12.1) H 04/09/18 07:16 - Attending Attestation I have personally performed a face to face evaluation on this patient. I have reviewed and agree with the care plan. History and Exam by me shows: Pt seen. No abd pain. O/E Abd soft. A: Cirrhosis most prob SANCHEZ. #2: Liver hemangioma per pt have at for long time Rec: w/u for cirrhosis . Will need f/u as out pt for further w/u
--- NOTE | 2018-04-09 13:25 | Electrocardiograph Report ---
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
--- NOTE | 2018-04-09 15:43 | Podiatry Consult Note ---
Date of Encounter: 04/09/18 Time of Encounter: 14:00 Assessment and Plan (1) Diabetic ulcer of left foot Current visit: Yes Status: Chronic Assessment: Reyna stage 1 measuring 1.3 x 0.3 x 0.3 with undermining noted. Minimal amount of purulent drainage noted. Hyperkeratotic tissue noted surrounding ulcer Does not probe to bone, no foul odor, no erythema, no streaking, no edema noted. Palpable DP/PT pulses CFT <3 seconds. Xray negative for OM, showed lucent area base proximal phalanax WBC 9.2 Blood glucose levels 130s ESR 15, CRP 18 HGB A1C 01/28 12.1 Plan: Wound cultures obtained. Nursing to send down Callus lesion x 1, left submetatarsal #1, sharp cutting performed with #15 blade scalpel Minimal amount of serosanginous drainage noted. Painted with betadine. Covered with maxorb, 4x4 dry gauze, and kerlex. Continue daily wound care. Orders placed. Low suspicion for OM. Heel medix boots ordered. Please keep foot elevated while in bed. Tight glycemic control to promote wound healing. Qualifiers: Diabetic foot ulcer location: unspecified part of foot Diabetes mellitus type: type 2 Non-pressure ulcer stage: limited to breakdown of skin Qu alified Code(s): E11.621 - Type 2 diabetes mellitus with foot ulcer; L97.521 - Non-pressure chronic ulcer of other part of left foot limited to breakdown of skin (2) BKA stump complication Current visit: Yes Status: Acute Assessment: Hyperkeratosis noted to right BKA stump, appears to be from friction of prosthesis. Boggy. No erythema noted, no active drainage, no edema, no foul odor. Peeling of skin noted around hyperkeratotic tissue. ESR 15, CRP 18 WBC 9.2 Plan: Sharp cutting x 1, right BKA stump, with #15 blade scalpel No purulent drainage or ulceration noted after debridement. Minimal amount of serosanginous drainage noted. Painted with betadine. Covered with maxorb, 4x4 dry gauze, and kerlex. Daily wound care. Orders placed. Heel medix boots ordered. Please place to prevent pressure ulcer. History of Present Illness HPI: Ms. Anthony Cook is a 57 year old female who presented last evening to the ER for hypoglycemic crisis with blood glucose levels in the 30s and altered mental status. Patient is currently alert and oriented x 3. 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 Patient is known to the podiatry group and follows with Dr. Lenz. Patient was consulted to podiatry for chronic ulceration of left submetatarsal #1 and for right BKA edema and ulceration. Patient denies any fevers, chills, nausea, vomiting, or diarrhea. Patient denies any chest pain, calf pain, or shortness of breath. Patient states she is wanting to go home tomorrow. No other questions or concerns at this time. Past Med Surg Social Fam HX - Past Medical History Medical history: diabetes, GERD, hyperlipidemia Additional medical history: hemangioma on liver. Psychiatric history: anxiety, depression - Past Surgical History Surgical History: cholecystectomy, other Additional surgical history: Right BKA - Social History Smoking Status: Former smoker Smokeless Tobacco Status: No Alcohol use: none Drug use: none - Family History Mother Living Status: Hx Family Cardiac Disorders: Yes Hx Family Respiratory Disorders: No Hx Family Cancer: Yes Hx Family GI Disorders: No Hx Family Endocrine Disorder: No Hx Family Neuromuscular Disorders: No Hx Family Neurologic Disorders: No Hx Family HEENT Disorders: No Hx Family Autoimmune Disorders: No Father Living Status: Hx Family Cardiac Disorders: Yes ([place]) Hx Family Endocrine Disorder: Yes Medications and Allergies Sertraline [Zoloft] 100 mg PO DAILY 10/15/14 [History] Omeprazole [PriLOSEC] 20 mg PO DAILY 06/19/16 [History] Insulin Aspart Prot/Insuln Asp [Novolog Mix 70-30 Vial] 80 unit SQ BID 08/03/17 [History] OxyCODONE/APAP 5/325 [Percocet 5/325 MG] 1 tab PO TID PRN 08/03/17 [History] Furosemide [Lasix] 20 mg PO DAILY #30 tablet 01/29/18 [Rx] Allergy/AdvReac Type Severity Reaction Status Date / Time No Known Allergies Allergy Verified 08/03/17 21:31 All Systems Reviewed: The remainder of the systems were reviewed and are negative - Constitutional Constitutional: no fever(s) - Cardiovascular Cardiovascular: leg ulcers, no chest pain, no dyspnea, no edema, no pedal edema - Respiratory Respiratory: no cough, no dyspnea - Musculoskeletal Musculoskeletal: numbness, tingling, other Additional comments: Right BKA Physical Exam - Constitutional Vitals: Temp Pulse Resp BP Pulse Ox 97.9 F 91 18 149/78 97 04/09/18 11:15 04/09/18 12:32 04/09/18 11:15 04/09/18 11:15 04/09/18 11:15 Exam: Constitiutional: Alert and oriented x 3. Well nourished. No acute distress noted Vascular: 2/4 DP/PT LLE, CFT <3 sec to all digits LLE, warm to warm from tibia to toes LLE, no calf pain with squeeze LLE, R BKA Neurologic: Diminished sensation to touch, normal plantar response, abnormal position sense dorsiflexion/plantar flexion Dermatologic: Pre-ulcerative callus noted to left submetatarsal #1 measuring 1.3 x 0.3 x 0.3. Right BKA with hyperkeratotic tissue noted Musculoskeletal: 3/5 muscle strength and normal tone LLE, right BKA Results - Labs Result Diagrams: 04/09/18 07:16 04/09/18 07:16 Labs: Abnormal lab results MCV 81.3 fL (83.0-100.0) L 04/09/18 07:16 MCH 24.5 pg (28.0-33.3) L 04/09/18 07:16 MCHC 30.1 g/dL (31.6-35.5) L 04/09/18 07:16 RDW 15.6 % (11.5-14.5) H 04/09/18 07:16 PT 13.6 Seconds (9.4-12.1) H 04/09/18 07:16 Chloride 108 mEq/L (98-107) H 04/09/18 07:16 Creatinine 0.46 mg/dL (0.60-1.20) L 04/09/18 07:16 BUN/Creatinine Ratio 28 (6-26) H 04/09/18 07:16 Glucose 134 mg/dL (70-105) H 04/09/18 07:16 POC Glucose 176 mg/dL (70-99) H 04/09/18 13:29 C-Reactive Protein 18 mg/L (Less than 10) H 04/09/18 07:16 Serum Total Protein 6.0 g/dL (6.4-8.9) L 04/09/18 07:16 Globulin 2.3 g/dL (2.4-3.5) L 04/09/18 07:16 Lipase < 3 Units/L (11-82) L 04/08/18 21:03 Urine Clarity Cloudy (Clear) A 04/09/18 00:20 Urine Protein 30 mg/dL (Neg-Trace) H 04/09/18 00:20 Urine Glucose (UA) 250 mg/dL (Normal) H 04/09/18 00:20 Urine Microscopic RBC 5-15 per hpf (0-3) H 04/09/18 00:20 Urine Microscopic WBC 5-15 per hpf (0-3) H 04/09/18 00:20 Ur Squamous Epith Cells Many per lpf (None-Few) H 04/09/18 00:20 H & H 04/08/18 04/09/18 Range/Units 19:55 07:16 Hgb 12.0 11.8 (11.5-15.4) g/dL Hct 39.1 39.2 (35.3-44.9) % All other labs normal. - Diagnostic results Ankle/Foot x-ray: report reviewed Consult Discharge Plan - Plan Referrals: Almas Ac DO [Non-Partnered Physician] - 04/17/18 3:20 pm
[2018-04-09] MEDS: Insulin NPH/REG 70/30 100 UNIT/ML (x5UNIT) SQ SCH (17:45)
[2018-04-10] MEDS: *HR* OxyCODONE/APAP 5/325 TABLET PO PRN ×2 (00:02→22:06)
[2018-04-10 05:09] LABS: INR 1.3; Prothrombin Time 14.1 Seconds (9.4-12.1)
[2018-04-10 05:21] LABS: BUN/Creatinine Ratio 25 (6-26); Blood Urea Nitrogen 14 mg/dL (6-20); Calcium 8.8 mg/dL (8.6-10.3); Carbon Dioxide 29 mEq/L (23-29); Chloride 107 mEq/L (98-107); Glucose 130 mg/dL (70-105); Osmolality,Calculated 294 (280-300); Potassium 4.2 mEq/L (3.5-5.1); Sodium 141 mEq/L (136-145); eGFR For Non-African Americans > 60 (> 60)
[2018-04-10] MEDS ORDERED: *HR* Dextrose 50 % in Water (Syg) 50 ML SYRINGE IVP PRN (08:54)
[2018-04-10] MEDS ORDERED: Dextrose Gel 15 GM/37.5 ML TUBE PO PRN ×2 (08:54)
[2018-04-10] MEDS ORDERED: D5% in Water 1,000 ML IVC PRN (08:54)
--- NOTE | 2018-04-10 10:06 | Discharge Summary ---
<Faizan Rodriguez - Last Filed: 04/11/18 14:26> - NOTES TO OUTPATIENT PROVIDER Notes to Outpatient Provider: Admitted for hypoglycemia. Likely due to low oral intake and strenuous activity. Also had a paracentesis and thoracentesis due to ascites/pleural effusion. Evaluated by podiatry and GI, low suspicion for infection. Orders not resulted at time of discharge: Pending orders 04/08/18 21:03 Culture,Blood [BC] Stat 04/09/18 10:46 Albumin,Body Fluid Routine Cell Cnt w Dif, Peritoneal Fl [BF] Routine Total Protein,Peritoneal Fluid [BF] Routine 04/09/18 15:30 Culture,Anaerobic [RM] Routine Culture,Wound [RM] Routine 04/10/18 08:25 IR paracentesis ultrasound [IR] Routine Date of Encounter: 04/11/18 Time of Encounter: 10:03 - Discharge Diagnosis (1) Altered mental status Priority: Secondary Status: Resolved Qualifiers: Altered mental status type: somnolence Qualified Code(s): R40.0 - Somnolence (2) Hypoglycemia Priority: Primary Status: Resolved (3) Ascites Priority: Secondary Status: Acute Qualifiers: Ascites type: other type Qualified Code(s): R18.8 - Other ascites (4) Hemangioma of liver Priority: Secondary Status: Chronic (5) Insulin dependent diabetes mellitus Priority: Secondary Status: Chronic (6) Infection (chronic) of amputation stump Priority: Secondary Status: Suspected (7) Foot ulcer due to secondary DM Priority: Secondary Status: Chronic (8) Pleural effusion, right Priority: Secondary Status: Acute (9) DVT prophylaxis Priority: Secondary Status: Acute (10) Hypoxemia Priority: Secondary Status: Acute Assessment and Plan: - Qualified for O2 needs at home. Will provide prescription. - Source is likely pleural effusion with deconditioning as well as atelectasis Hospital course: Ms. Anthony Cook is a 57 year old female who presented to ED with AMS. Found to be hypoglycemic at 22. Improved with dextrose and diet. Cause was likely poor PO intake as well as continued insulin use and exertion. Also had paracentesis and thoracentesis possible related to known hemangioma of liver vs infection. Exudative fluid consistent with previous results. Has had these previously. Evaluated by podiatry and debrided. Wound growing MSSA, possible colonization. Will treat both this and possible pneumonia with levaquin, 7 total days of abx. Discharged home in stable condition. Qualified for oxygen support with 6 minute walk test. Likely cause is deconditioning in combination with pleural effusions. Discharge discussed with: patient, social work, case management - Time Spent with Patient Total time spent providing and/or coordinating discharge services: - Discharge Medications Prescriptions: Bacitracin OINT [Ak-Tracin] 1 appl TP BID #1 tube Insulin Aspart Prot/Insuln Asp [Novolog Mix 70-30 Vial] 40 unit SQ BID #5 vial levoFLOXacin [Levaquin] 750 mg PO DAILY #5 tablet Home Medications: Sertraline [Zoloft] 100 mg PO DAILY 10/15/14 [History] Omeprazole [PriLOSEC] 20 mg PO DAILY 06/19/16 [History] OxyCODONE/APAP 5/325 [Percocet 5/325 MG] 1 tab PO TID PRN 08/03/17 [History] Atorvastatin [Lipitor] 40 mg PO HS 04/09/18 [History] Bacitracin OINT [Ak-Tracin] 1 appl TP BID #1 tube 04/10/18 [Rx] Insulin Aspart Prot/Insuln Asp [Novolog Mix 70-30 Vial] 40 unit SQ BID #5 vial 04/10/18 [Rx] levoFLOXacin [Levaquin] 750 mg PO DAILY #5 tablet 04/11/18 [Rx] Allergies/Adverse Reactions: Allergy/AdvReac Type Severity Reaction Status Date / Time No Known Allergies Allergy Verified 08/03/17 21:31 Date of admission: 04/09/18 00:14 Primary care physician: PCP NONE Consults: 04/09/18 00:16 Consult to Gastroenterology [CONS] Routine Consulting Provider: [facility] Reason for Consult: liver hemangioma; ascites Call Completed: No Consult to Podiatry [CONS] Routine Consulting Provider: Podiatry [facility] Reason for Consult: DFU left foot; stump infection right BKA Call Completed: No 04/09/18 05:48 Consult to Wound Care [CONS] Routine Reason for Consult: R BKA stump infection and L DFU Call Completed: No 04/10/18 07:00 Consult to Interventional Radiology [CONS] Routine Consulting Provider: [facility]iology [facility] Reason for Consult: Ascites on CT scan Call Completed: No Discharging clinician: Faizan Rodriguez Anticipated date of discharge: 04/11/18 - Constitutional Vitals: Temp Pulse Resp BP Pulse Ox 98.1 F 82 16 149/85 95 04/10/18 07:06 04/10/18 08:38 04/10/18 07:06 04/10/18 07:06 04/10/18 08:38 General appearance: Present: cooperative, A&O X 3, pleasant, answers questions appropriately Exam: Gen.: Vitals noted. No acute distress. AAOx3, resting comfortably in bed. Cardiac: RRR, no murmur, +S1/S2, No BLE edema Pulmonary: Diminished at bases. Otherwise CTA bilaterally, no wheezes, rales or rhonchi, equal chest expansion, unlabored breathing Abdomen: soft, nontender, BS diminished, no guarding, no palpable HSM. Positive fluid wave and distention without tympany Skin: warm and dry, no visible lesions. MSK: ROM not assessed, no joint swelling noted, gait no assessed while in bed. Non tender calf or clubbing. Right BKA, left foot with covered ulcer. No erythema appreciated. No drainage. Left hand missing digits. Neuro: A&Ox3, moves all extremities, no focal deficits Psych: Appropriate mood and behavior, AOx3 - Patient Status Disposition: Home, Self-Care Condition: Fair Functional capacity at discharge: uses cane/walker Overall status at discharge: patient is back to baseline - Discharge Instructions Instructions: Bacitracin (On the skin), Diabetic Foot Care (DC), Diabetic Hypoglycemia (DC) Follow Up With: Wound, Care [Other] - 04/18/18 2:45 pm Almas Ac DO [Non-Partnered Physician] - 04/17/18 3:20 pm Additional Instructions: Please follow up with your PCP in 3-5 days for further diabetes management. Until him, please decrease your insulin dose to 40 units, twice daily. Follow up with wound care. Please check your BG before meals and at bedside. Also, if you experience s/s of hypoglycemia. Wound care: Wash wounds daily with soap and water. No soaking in bath tub/pools/hot tubs. Pat dry. If wounds are draining: Apply Bacitracin ointment, cover with maxorb, then 4x4 gauze, then cover wound. Change daily or as needed if dressing falls off or is soiled. If wounds are not draining: Cover with Betadine, Bacitracin ointment, adaptic, 4x4 gauze, and cover. You may remove the Bandaid from the paracentesis tomorrow 04-11-18. When resting, elevate right lower ext off and wear a encarnacion boot to the left lower ext to prevent further ulceration. - Diet and Activity Activity: return to work once cleared by your PCP/specialist, resume usual activities as tolerated Diet: diabetic diet <Wilson Camacho - Last Filed: 04/11/18 15:15> Orders not resulted at time of discharge: Pending orders 04/08/18 21:03 Culture,Blood [BC] Stat 04/09/18 10:46 Albumin,Body Fluid Routine 04/09/18 15:30 Culture,Anaerobic [RM] Routine 04/10/18 14:11 Cytology [PTH] Routine 04/10/18 15:00 Culture,Body Fluid [RM] Routine Date of Encounter: 04/11/18 - Discharge Diagnosis (1) Acute metabolic encephalopathy due to hypoglycemia Priority: Primary Status: Resolved (2) Ascites Status: Chronic Qualifiers: Ascites type: other type Qualified Code(s): R18.8 - Other ascites (3) Hypoglycemia Status: Resolved (4) Infection (chronic) of amputation stump Status: Suspected (5) Diabetic foot ulcer Priority: Secondary Status: Chronic Qualifiers: Diabetic foot ulcer location: midfoot Diabetes mellitus type: type 1 Laterality: left Non-pressure ulcer stage: limited to breakdown of skin Qualified Code(s): E10.621 - Type 1 diabetes mellitus with foot ulcer; L97.421 - Non-pressure chronic ulcer of left heel and midfoot limited to breakdown of skin (6) DVT prophylaxis Status: Acute Hospital course: Ms. Anthony Cook is a 57 year old female - Time Spent with Patient Total time spent providing and/or coordinating discharge services: 38min Date of admission: 04/09/18 00:14 Primary care physician: PCP NONE Consults: 04/09/18 00:16 Consult to Gastroenterology [CONS] Routine Consulting Provider: [facility] Reason for Consult: liver hemangioma; ascites Call Completed: No Consult to Podiatry [CONS] Routine Consulting Provider: [facility] Reason for Consult: DFU left foot; stump infection right BKA Call Completed: No 04/09/18 05:48 Consult to Wound Care [CONS] Routine Reason for Consult: R BKA stump infection and L DFU Call Completed: No 04/10/18 07:00 Consult to Interventional Radiology [CONS] Routine Consulting Provider: Radiology [facility] Reason for Consult: Ascites on CT scan Call Completed: No - Constitutional Vitals: Temp Pulse Resp BP Pulse Ox 98.2 F 84 18 148/77 96 04/11/18 10:59 04/11/18 10:59 04/11/18 10:59 04/11/18 10:59 04/11/18 11:15 - Attending Attestation I examined this patient and my medical decision-making was reviewed with the Resident Physician on 04/11/18. I agree with the documented findings, disposition and treatment plan as described except to the extent set forth below. Ms Cruz has been admitted for severe hypoglycemia which improved with treatment and decreased insulin. She was requiring oxygen and had paracentesis and thoracentesis (has had before). Today she is afebrile and breathing much better though still requires oxygen due to persistent hypoxemia. She will be discharged home. Exam Alert Comfortable Mucus membranes dry Heart reg and not tachy No wheeze Abd distended and soft. Nontender Plan D/C home today. Complete course of abx for leg wound
[2018-04-10 11:56] LABS: RBC,Peritoneal Fluid 0.007 M/mcL
--- NOTE | 2018-04-10 11:59 | IR Procedure Note ---
Date of procedure: 04/10/18 Consent Obtained: Written consent Timeout: Correct patient and procedure verified, Correct site verified, Time out performed, Skin prep completed Local anesthetic: Lidocaine 1% Indications: ascites Procedure Performed: paracentesis Was there an assistant womens volleyball coach present: No Site/Technique: right abdomen Results/Findings: 2 L removed Estimated blood loss (cc): 0 Complications: None; Tolerated procedure well Post Procedure Treatment Plan: NA Specimen: 60 cc straw colored fluid
[2018-04-10] MEDS: Insulin NPH/REG 70/30 100 UNIT/ML (x5UNIT) SQ SCH ×2 (14:05→18:10)
[2018-04-10 14:17] LABS: Appearance of Peritoneal Fl HAZY (Clear)
--- NOTE | 2018-04-10 14:51 | Internal Med Progress Note ---
<Melina Xiong - Last Filed: 04/10/18 15:15> Hospitalist Progress Note - Encounter Date of Encounter: 04/10/18 Time of Encounter: 15:08 - Exam Vitals: Temp Pulse Resp BP Pulse Ox 97.7 F 85 16 146/76 96 04/10/18 10:59 04/10/18 12:00 04/10/18 10:59 04/10/18 12:00 04/10/18 14:03 - Assessment and Plan (1) Ascites Current Visit: Yes Status: Acute (2) Hypoglycemia Current Visit: Yes Status: Resolved (3) Infection (chronic) of amputation stump Current Visit: Yes Status: Suspected (4) Diabetic foot ulcer Current Visit: Yes Status: Acute (5) DVT prophylaxis Current Visit: Yes Status: Acute - Time Spent with Patient Total time spent is greater than 50% in coordination of care (as documented) at patient's floor/unit and/or counseling patient: Internal Medicine: Result - Labs CBC & Chem 7: 04/09/18 07:16 04/10/18 03:49 Labs: BMP 04/10/18 03:49 Sodium 141 Potassium 4.2 Chloride 107 Carbon Dioxide 29 BUN 14 Creatinine 0.55 L Glucose 130 H Calcium 8.8 - ABG Interpretation ABG results: PT/INR, D-dimer PT 14.1 Seconds (9.4-12.1) H 04/10/18 03:49 - Impressions Impressions Foot X-Ray 04/08/18 20:48 IMPRESSION: 1. No convincing evidence of acute or new osteomyelitis. Unchanged small amount of lucent area involving base of proximal phalanx of 1st digit. If there is a persistent concern for osteomyelitis, MRI would be a more sensitive examination. 2. No evidence of acute fracture or dislocation. 3. Diffuse osteopenia. D/ / 04/08/2018 21:50:20 Xavi White MD / Albertina Carroll Interpreting Provider: Xavi White MD Paracentesis Ultrasound 04/10/18 08:25 IMPRESSION: Successful ultrasound guided paracentesis. D/ / Robert Christianson / Robert Christianson Interpreting Provider: Robert Christianson Chest X-Ray 04/10/18 13:22 IMPRESSION: Similar right-sided effusion with airspace disease and interstitial edema. D/ / 04/10/2018 13:48:57 Hugh Gallego / earrubio Interpreting Provider: Hugh Gallego Consult Discharge Plan - Plan Instructions: Bacitracin (On the skin), Diabetic Foot Care (DC), Diabetic Hypoglycemia (DC) Additional Instructions: Please follow up with your PCP in 3-5 days for further diabetes management. Until him, please decrease your insulin dose to 40 units, twice daily. Follow up with wound care. Please check your BG before meals and at bedside. Also, if you experience s/s of hypoglycemia. Wound care: Wash wounds daily with soap and water. No soaking in bath tub/pools/hot tubs. Pat dry. If wounds are draining: Apply Bacitracin ointment, cover with maxorb, then 4x4 gauze, then cover wound. Change daily or as needed if dressing falls off or is soiled. If wounds are not draining: Cover with Betadine, Bacitracin ointment, adaptic, 4x4 gauze, and cover. You may remove the Bandaid from the paracentesis tomorrow 04-11-18. When resting, elevate right lower ext off and wear a encarnacion boot to the left lower ext to prevent further ulceration. Referrals: Wound, Care [Other] - 04/18/18 2:45 pm Almas Ac DO [Non-Partnered Physician] - 04/17/18 3:20 pm Prescriptions: Bacitracin OINT [Ak-Tracin] 1 appl TP BID #1 tube Insulin Aspart Prot/Insuln Asp [Novolog Mix 70-30 Vial] 40 unit SQ BID #5 vial - Attending Attestation I saw evaluated and examined this patient and my medical decision-making was reviewed with the Resident Physician, Faizan Rodriguez. I agree with the documented findings, disposition and treatment plan as described except to any changes set forth below. We independently had [id number] contact with the patient. Patient is doing much better overall. However she was found to be hypoxic and requiring O2 supplementation. She denies any significant shortness of breath. No fever or chills reported. No cough. General: Patient is alert, no acute distress, oriented x 3 ENT: Mucous membranes moist Respiratory: Decreased breath sounds in right base Cardiovascular: Regular rate and rhythm. s1 and s2 normal No clicks, rubs, gallops, or murmurs. No pedal edema Abdomen: Abdomen is soft, distended with fluid thrill nontender. Bowel sounds are present Musculoskeletal: Spontaneously moving all extremities , left foot bandaged. Right BKA stump has signs of superficial laceration wound without any drainage or signs of infection. Skin: warm, dry, intact. Neuro: Alert oriented x 3 normal cranial nerves, no focal deficits Acute hypoxic respiratory failure: Patient remains hypoxic. Chest x-ray shows moderate right-sided pleural effusion. Will consult IR for thoracentesis. Bea vallejo does have compressive atelectasis of the entire right lower lobe. This is likely causing her hypoxia. Will order incentive spirometry. Right Pleural effusion: Most likely due to cirrhosis. However CT of the abdomen and pelvis suggested possible loculated effusion. Will consult IR for parac entesis. Acute metabolic encephalopathy: Resolved. Hypoglycemia: Resolved. Will decrease insulin regimen at home. Diabetes mellitus: Insulin-dependent. Complicated by episodes of hypoglycemia. Now improved. Continue current insulin regimen and diabetic diet. Ascites: Patient underwent paracentesis this morning. Fluid analysis shows 1168 nucleated cells but predominantly lymphocytes. Less than 250 neutrophils. We will await culture results. Hemangioma of the liver: GI consult appreciated. Recommend outpatient follow- up. Infection of amputation stump: Continue local wound care. Left Diabetic foot ulcer: Evaluated by podiatry. Wound cleaned out yesterday. Wound culture growing staph aureus. Will place patient on Rocephin for now. DVT prophylaxis with subcutaneous heparin <Faizan Rodriguez - Last Filed: 04/10/18 16:16> Hospitalist Progress Note - Encounter Date of Encounter: 04/10/18 Time of Encounter: 09:00 - Subjective Interval History: Patient was seen and examined at bedside this morning. She states that overall she feels much better. No complaints morning of hypoglycemia, fevers, chills, confusion. Denies any symptoms of chest pain. She is still oxygen dependent on nasal cannula but has no other concerns at this time. She reports that she has had a paracentesis in the past as well as thoracentesis and previously tolerated these well. - Exam Vitals: Temp Pulse Resp BP Pulse Ox 97.7 F 85 16 146/76 96 04/10/18 10:59 04/10/18 12:00 04/10/18 10:59 04/10/18 12:00 04/10/18 14:03 Exam: Gen.: Vitals noted. No acute distress. AAOx3, resting comfortably in bed. Cardiac: RRR, no murmur, +S1/S2, No BLE edema Pulmonary: Diminished at bases. Otherwise CTA bilaterally, no wheezes, rales or rhonchi, equal chest expansion, unlabored breathing Abdomen: soft, nontender, BS diminished, no guarding, no palpable HSM. Positive fluid wave and distention without tympany Skin: warm and dry, no visible lesions. MSK: ROM not assessed, no joint swelling noted, gait no assessed while in bed. Non tender calf or clubbing. Right BKA, left foot with covered ulcer. No erythema appreciated. No drainage. Left hand missing digits. Neuro: A&Ox3, moves all extremities, no focal deficits Psych: Appropriate mood and behavior, AOx3 - Assessment and Plan (1) Altered mental status Current Visit: Yes Status: Resolved Assessment and Plan: - Resolved - Most likely secondary to hypoglycemia - No focal deficits to suspect neurologic etiology. Nonseptic appearing - LFTs within normal limits and ammonia within normal limits at 53 - We will continue monitor (2) Hypoglycemia Current Visit: Yes Status: Resolved Assessment and Plan: - Resolved - Patient presented with blood sugars as low as 18 on this admission - Patient is insulin-dependent at home on 80 units BID - Likely etiology is continued insulin use despite poor appetite and physical exertion - Patient has a previous history of poorly controlled diabetes with an A1c of 12.1% on 01/24/18 and multiple amputations - Have low suspicion for infectious etiology at this time - Blood sugars have improved with most recent of in 70-190 - Patient is tolerating diet Plan - We will continue to encourage diet - We will continue home insulin at half dose of 40 units twice a day - Continue monitor ACHS glucose. Anticipate decrease as blood sugar stabilizes (3) Ascites Current Visit: Yes Status: Acute Assessment and Plan: - Secondary to hepatic hemangioma and mass effect - Follows at [facility] - Patient states this is chronic - S/p paracentesis with 2 L Fluid removal this afternoon. - Fluid analysis pending (4) Hemangioma of liver Current Visit: Yes Status: Chronic Assessment and Plan: - Patient is known history and follows with [facility] - Last MRI reportedly 2 years ago - Patient reportedly does have chronic ascites secondary to this - Continue management as outpatient - GI has evaluated recommends follow-up as outpatient (5) Insulin dependent diabetes mellitus Current Visit: Yes Status: Chronic Assessment and Plan: As above for hypoglycemia -We will continue home insulin at decreased dose (6) Infection (chronic) of amputation stump Current Visit: Yes Status: Suspected Assessment and Plan: - As noted in previous documentation - Follows with Dr. 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 Continue bacitracin ointment. - Wound culture growing Staphylococcus aureus, we will start Rocephin day #1 (7) Foot ulcer due to secondary DM Current Visit: Yes Status: Chronic Assessment and Plan: As above - Follows with Dr. Lenz - Continue wound care - We will discontinue antibiotics pending recommendations from podiatry (8) Pleural effusion, right Current Visit: Yes Status: Acute Assessment and Plan: - As demonstrated on CT scan and chest x-rays - Likely related to ascites - Patient reports previous thoracentesis - We will arrange for thoracentesis afternoon with fluid analysis - Unable to wean from oxygen this afternoon, we will hold discharge (9) Acute respiratory failure Current Visit: Yes Status: Suspected Assessment and Plan: - As above for pleural effusion - Patient currently tolerating 2.5 L oxygen venous cannula - Upon attempting to wean this afternoon, patient did desaturate to the low 80s - We will attempt to improve after thoracentesis however patient may require home oxygen (10) DVT prophylaxis Current Visit: Yes Status: Acute Assessment and Plan: Subcutaneous heparin - Time Spent with Patient Total time spent is greater than 50% in coordination of care (as documented) at patient's floor/unit and/or counseling patient: Internal Medicine: Result - Labs CBC & Chem 7: 04/09/18 07:16 04/10/18 03:49 Labs: BMP 04/10/18 03:49 Sodium 141 Potassium 4.2 Chloride 107 Carbon Dioxide 29 BUN 14 Creatinine 0.55 L Glucose 130 H Calcium 8.8 - ABG Interpretation ABG results: PT/INR, D-dimer PT 14.1 Seconds (9.4-12.1) H 04/10/18 03:49 - Impressions Impressions Foot X-Ray 04/08/18 20:48 IMPRESSION: 1. No convincing evidence of acute or new osteomyelitis. Unchanged small amount of lucent area involving base of proximal phalanx of 1st digit. If there is a persistent concern for osteomyelitis, MRI would be a more sensitive examination. 2. No evidence of acute fracture or dislocation. 3. Diffuse osteopenia. D/ / 04/08/2018 21:50:20 Xavi White MD / Albertina Carroll Interpreting Provider: Xavi White MD Paracentesis Ultrasound 04/10/18 08:25 IMPRESSION: Successful ultrasound guided paracentesis. D/ / Robert Christianson / Robert Christianson Interpreting Provider: Robert Christianson Chest X-Ray 04/10/18 13:22 IMPRESSION: Similar right-sided effusion with airspace disease and interstitial edema. D/ / 04/10/2018 13:48:57 Hugh Gallego / saundra Interpreting Provider: Hugh Gallego <Melina Xiong - Last Filed: 04/10/18 15:15> (1) Ascites Qualifiers: Ascites type: other type Qualified Code(s): R18.8 - Other ascites (4) Diabetic foot ulcer Qualifiers: Diabetic foot ulcer location: midfoot Diabetes mellitus type: type 1 Laterality: left Non-pressure ulcer stage: limited to breakdown of skin Qualified Code(s): E10.621 - Type 1 diabetes mellitus with foot ulcer; L97.421 - Non-pressure chronic ulcer of left heel and midfoot limited to breakdown of skin <Faizan Rodriguez - Last Filed: 04/10/18 16:16> (1) Altered mental status Qualifiers: Altered mental status type: somnolence Qualified Code(s): R40.0 - Somnolence (3) Ascites Qualifiers: Ascites type: other type Qualified Code(s): R18.8 - Other ascites (9) Acute respiratory failure Qualifiers: Respiratory failure complication: hypoxia Qualified Code(s): J96.01 - Acute respiratory failure with hypoxia
[2018-04-10] MEDS ORDERED: cefTRIAXone 2,000 MG in Water for inj. (sterile) 20 ML 20 ML IVP SCH (15:00)
--- NOTE | 2018-04-10 15:11 | IR Procedure Note ---
Date of procedure: 04/10/18 Consent Obtained: Written consent Timeout: Correct patient and procedure verified, Correct site verified, Time out performed, Skin prep completed Local anesthetic: Lidocaine 1% Indications: right effusion Procedure Performed: thoracentesis Was there an neurosurgical physician assistant present: No Site/Technique: right chest Results/Findings: 1300 cc straw colol fluid Estimated blood loss (cc): 0 Complications: None; Tolerated procedure well Post Procedure Treatment Plan: xray Specimen: yes
[2018-04-10] MEDS: Lactobacillus 1 EACH CAP.SPRINK PO SCH (18:11)
[2018-04-10 19:29] LABS: Total Protein,Pleural Fluid 3.5 g/dL (No Ref Range)
[2018-04-10 20:12] LABS: RBC,Pleural Fluid 0.007 M/mcL
[2018-04-10 21:14] LABS: Appearance of Pleural Fl Cloudy (Clear)
[2018-04-10 21:18] LABS: Basophils,Pleural Fluid 0 %; Eosinophils,Pleural Fluid 0 %
[2018-04-11 05:03] LABS: Basophils % 0.2 %; Eosinophils # 0.2 K/mcL (0.0-0.6); Eosinophils % 2.1 %; Hematocrit 38.5 % (35.3-44.9); Hemoglobin 11.6 g/dL (11.5-15.4); Immature Granulocytes % 0.2 % (0-4); Lymphocytes # 1.7 K/mcL (0.6-4.6); Lymphocytes % 19.8 %; Mean Corpuscular HGB Conc 30.1 g/dL (31.6-35.5); Mean Corpuscular Hemoglobin 24.4 pg (28.0-33.3); Mean Corpuscular Volume 80.9 fL (83.0-100.0); Mean Platelet Volume 10.5 fL (9.4-12.4); Monocytes # 0.6 K/mcL (0.0-1.3); Monocytes % 6.7 %; Platelet Count 222 K/mcL (140-400); Red Blood Count 4.76 M/mcL (3.82-4.97); Red Cell Distribution Width 15.2 % (11.5-14.5)
[2018-04-11 05:21] LABS: BUN/Creatinine Ratio 19 (6-26); Blood Urea Nitrogen 12 mg/dL (6-20); Calcium 8.6 mg/dL (8.6-10.3); Carbon Dioxide 29 mEq/L (23-29); Chloride 106 mEq/L (98-107); Glucose 138 mg/dL (70-105); Osmolality,Calculated 292 (280-300); Potassium 3.7 mEq/L (3.5-5.1); Sodium 140 mEq/L (136-145); eGFR For Non-African Americans > 60 (> 60)
[2018-04-11] MEDS: Lactobacillus 1 EACH CAP.SPRINK PO SCH (07:56)
[2018-04-11] MEDS: Insulin NPH/REG 70/30 100 UNIT/ML (x5UNIT) SQ SCH (07:57)
[2018-04-11 11:04] VITALS: BP 148/77
[2018-04-12 01:29] LABS: Fluid Source for Albumin ASCITES
== END 2018-04-11 17:03 | disposition home or self-care (01) | DRG 637 ==
LOC: EMEROOARM 19:40 → 2NNU 19:40 → SUATTDRO 04-09 00:14
PROVIDERS: ADMIT Family Medicine; ATTEND Internal Medicine

== ENCOUNTER 2018-06-02 14:33 | Inpatient (IN) ==
[2018-06-02 16:04] LABS: Basophils % 0.1 %; Eosinophils % 0.4 %; Hematocrit 38.6 % (35.3-44.9); Hemoglobin 11.9 g/dL (11.5-15.4); Immature Granulocytes % 0.5 % (0-4); Lymphocytes % 10.7 %; Mean Corpuscular HGB Conc 30.8 g/dL (31.6-35.5); Mean Corpuscular Hemoglobin 24.1 pg (28.0-33.3); Mean Corpuscular Volume 78.3 fL (83.0-100.0); Mean Platelet Volume 10.4 fL (9.4-12.4); Monocytes # 0.6 K/mcL (0.0-1.3); Monocytes % 6.3 %; Platelet Count 175 K/mcL (140-400); Red Blood Count 4.93 M/mcL (3.82-4.97); Red Cell Distribution Width 14.9 % (11.5-14.5)
[2018-06-02 16:22] LABS: BUN/Creatinine Ratio 19 (6-26); Blood Urea Nitrogen 10 mg/dL (6-20); C-Reactive Protein 233 mg/L (Less than 10); Calcium 8.8 mg/dL (8.6-10.3); Carbon Dioxide 25 mEq/L (23-29); Chloride 97 mEq/L (98-107); Glucose 397 mg/dL (70-105); Osmolality,Calculated 288 (280-300); Potassium 3.6 mEq/L (3.5-5.1); Sodium 131 mEq/L (136-145); eGFR For Non-African Americans > 60 (> 60)
[2018-06-02] MEDS ORDERED: cefTRIAXone 1,000 MG in Water for inj. (sterile) 20 ML 10 ML IVP ONE (18:23)
[2018-06-02] MEDS ORDERED: 0.9 % Sodium Chloride 1,000 ML IVC ONE (18:25)
[2018-06-02] MEDS ORDERED: *HR* OxyCODONE Immed Rel 5 MG TABLET PO STA (18:25)
--- NOTE | 2018-06-02 19:16 | Emergency Department Note ---
Disposition Clinical Impression: Cellulitis Qualifiers: Site of cellulitis: unspecified site Qualified Code(s): L03.90 - Cellulitis, unspecified Disposition: Admitted As Inpatient Condition: Good General Adult HPI - General Chief complaint: ED Extremity Injury, Lower Stated complaint: R leg swelling Time Seen by Provider: 06/02/18 14:56 Source: patient Limitations: no limitations Nursing Notes Reviewed: Yes Vital Signs Reviewed: Yes - History of Present Illness HPI Narrative: Patient presenting to the emergency department for evaluation of cellulitis and concern for infection. Patient does have a previous below the knee and rotation secondary to previous complications from a foot wound. Patient did have this managed conservatively but hold for all underwent nerve damage which complicated things requiring the previous agitation. Patient has a [id number] dictation wears prosthesis. Patient has had problems with her inserts noticed a blister. Patient has been unable to get other insert. Blister itself is been healing well with patient has noticed increased amounts of erythema over the last 2 days. No systemic signs. No fevers, nausea, or abdominal pain. The patient does have significant erythema which has been marked with skin marker. Approximate 5 cm across and 7 cm going from anterior to posterior. Patient without purulent drainage. Screening labs have been obtained. Patient will likely require discussion with podiatry. Patient does not want to stay in the hospital. Pain Scale: 4 - Related Data Home Medications Medication Instructions Recorded Confirmed Sertraline [Zoloft] 100 mg PO DAILY 10/15/14 04/09/18 Omeprazole [PriLOSEC] 20 mg PO DAILY 06/19/16 04/09/18 OxyCODONE/APAP 5/325 [Percocet 1 tab PO TID PRN 08/03/17 04/09/18 5/325 MG] Previous Rx's Medication Instructions Recorded Insulin Aspart Prot/Insuln Asp 40 unit SQ BID #5 vial 04/10/18 [Novolog Mix 70-30 Vial] Allergies Allergy/AdvReac Type Severity Reaction Status Date / Time No Known Allergies Allergy Verified 08/03/17 21:31 All systems ED: reviewed and negative except as stated. Review of Systems: As Per HPI Constitutional: Denies: fever, chills, weakness ENT ED: Denies: congestion Cardiovascular: Denies: chest pain, palpitations, dyspnea on exertion Respiratory: Denies: cough, dyspnea Gastrointestinal: Denies: abdominal pain, nausea Musculoskeletal: Reports: other (swelling at BKA). Denies: back pain Integumentary: Reports: rash Endocrine: Denies: fatigue Past Medical History - Past Medical History Medical history: Reports: diabetes, GERD Surgical history: Reports: cholecystectomy, other Psychiatric history: Reports: anxiety, depression ORE MINER history: Reports: no ORE MINER history - Social History Smoking Status: Former smoker Smokeless Tobacco Status: No Alcohol use: Reports: none Drug use: Reports: none Physical Exam General: Well appearing, nontoxic, no acute distress Head: Normocephalic Atraumatic Eyes: PERRL, EOMI ENT: Airway patent, no stridor Neck: supple, no meningismus Chest: Lungs clear to auscultation bilateral Cardiac: Regular rate and rhythm, no murmurs, rubs or gallops Abdomen: soft, nontender, nondistended; no guarding, rebound, or tenderness to percussion Musculoskeletal: Calves symmetric, nontender. Skin: Small healing ulcer approximately half centimeter by 1 cm nature to the distal end of the BKA with surrounding erythema proximally 5 cm in diameter and 7 cm from anterior to posterior. Mild tenderness to palpation. Neuro: Alert and Oriented to person, place, and time; No obvious focal deficit. - General Limitations: no limitations General appearance: alert, in no apparent distress Course - Reevaluation(s) Reevaluation #1: X-ray without evidence of gas. Without evidence of osteomyelitis. Lab work significant concerning for elevated ESR and CRP. Discussed with podiatry. Recommends admission for IV antibiotics as outpatient antibiotics and nonhealing course could lead to further [id number] amputation. - Consultations Consultation #1: Discussed with on-call podiatry. Recommends admission for cellulitis. MRI will not be helpful as she has this area as a pressure region. We will continue to monitor and consult. Vital Signs Temperature 98.5 F 06/02/18 14:47 Pulse Rate 95 06/02/18 14:47 Respiratory Rate 18 06/02/18 14:47 Blood Pressure 113/60 06/02/18 14:47 O2 Sat by Pulse Oximetry 98 06/02/18 14:47 Temperature 97.6 F 06/02/18 20:35 Pulse Rate 106 06/02/18 20:35 Respiratory Rate 15 06/02/18 20:35 Blood Pressure 152/71 06/02/18 20:35 O2 Sat by Pulse Oximetry 95 06/02/18 20:35 Oxygen Delivery Oxygen Delivery Room Air Medical Decision Making - Medical Records Medical records reviewed: Yes I reviewed the patient's medical records. - Lab Data Lab results reviewed: Yes I reviewed the patient's lab results. Result diagrams: 06/02/18 15:41 06/02/18 15:41 Lab Results 06/02/18 06/02/18 06/02/18 Range/Units 15:41 15:41 15:41 WBC 9.7 (4.3-11.1) K/mcL RBC 4.93 (3.82-4.97) M/mcL Hgb 11.9 (11.5-15.4) g/dL Hct 38.6 (35.3-44.9) % MCV 78.3 L (83.0-100.0) fL MCH 24.1 L (28.0-33.3) pg MCHC 30.8 L (31.6-35.5) g/dL RDW 14.9 H (11.5-14.5) % Plt Count 175 (140-400) K/mcL MPV 10.4 (9.4-12.4) fL Immature Gran % 0.5 (0-4) % Seg Neutrophils % 82.0 % Lymphocytes % 10.7 % Monocytes % 6.3 % Eosinophils % 0.4 % Basophils % 0.1 % Neutrophils # 8.0 (1.6-8.9) K/mcL Lymphocytes # 1.0 (0.6-4.6) K/mcL Monocytes # 0.6 (0.0-1.3) K/mcL Eosinophils # 0.0 (0.0-0.6) K/mcL Basophils # 0.0 (0.0-0.2) K/mcL ESR 120 H (0-15) mm/hr Sodium 131 L (136-145) mEq/L Potassium 3.6 (3.5-5.1) mEq/L Chloride 97 L (98-107) mEq/L Carbon Dioxide 25 (23-29) mEq/L BUN 10 (6-20) mg/dL Creatinine 0.54 L (0.60-1.20) mg/dL Est GFR ( Amer) > 60 (> 60) Est GFR (Non-Af Amer) > 60 (> 60) BUN/Creatinine Ratio 19 (6-26) Glucose 397 H (70-105) mg/dL POC Glucose (70-99) mg/dL Calculated Osmolality 288 (280-300) Calcium 8.8 (8.6-10.3) mg/dL C-Reactive Protein 233 H (Less than 10) mg/L 06/02/18 Range/Units 21:19 WBC (4.3-11.1) K/mcL RBC (3.82-4.97) M/mcL Hgb (11.5-15.4) g/dL Hct (35.3-44.9) % MCV (83.0-100.0) fL MCH (28.0-33.3) pg MCHC (31.6-35.5) g/dL RDW (11.5-14.5) % Plt Count (140-400) K/mcL MPV (9.4-12.4) fL Immature Gran % (0-4) % Seg Neutrophils % % Lymphocytes % % Monocytes % % Eosinophils % % Basophils % % Neutrophils # (1.6-8.9) K/mcL Lymphocytes # (0.6-4.6) K/mcL Monocytes # (0.0-1.3) K/mcL Eosinophils # (0.0-0.6) K/mcL Basophils # (0.0-0.2) K/mcL ESR (0-15) mm/hr Sodium (136-145) mEq/L Potassium (3.5-5.1) mEq/L Chloride (98-107) mEq/L Carbon Dioxide (23-29) mEq/L BUN (6-20) mg/dL Creatinine (0.60-1.20) mg/dL Est GFR ( Amer) (> 60) Est GFR (Non-Af Amer) (> 60) BUN/Creatinine Ratio (6-26) Glucose (70-105) mg/dL POC Glucose 236 H (70-99) mg/dL Calculated Osmolality (280-300) Calcium (8.6-10.3) mg/dL C-Reactive Protein (Less than 10) mg/L - Radiology Data Radiology results reviewed: Yes I reviewed the patient's radiology results. Tibia/Fibula X-Ray 06/02/18 16:07 IMPRESSION: Soft tissue swelling surrounding the surgical stump. No definite radiographic evidence of acute osteomyelitis. D/ / 06/02/2018 17:10:56 Faizan Shaver MD / florentin Interpreting Provider: Faizan Shaver MD
[2018-06-02] MEDS ORDERED: Dextrose Gel 15 GM/37.5 ML TUBE PO PRN ×2 (21:48)
[2018-06-02] MEDS ORDERED: Naloxone 0.4 MG/ML INJ IVP PRN (21:48)
[2018-06-02] MEDS ORDERED: *HR* Dextrose 50 % in Water (Syg) 50 ML SYRINGE IVP PRN (21:48)
[2018-06-02] MEDS ORDERED: D5% in Water 1,000 ML IVC PRN (21:48)
[2018-06-02] MEDS ORDERED: Ondansetron 4 MG/2 ML VIAL IVP PRN (21:48)
[2018-06-02] MEDS ORDERED: NON-FORMULARY MEDICATION 1 EACH EACH (Insulin Aspart Prot/Insuln Asp [Novolog Mix 70-30 Vi SQ SCH (22:00)
[2018-06-02] MEDS: Insulin NPH/REG 70/30 100 UNIT/ML (x5UNIT) SQ SCH (22:38)
[2018-06-02] MEDS: 0.9 % Sodium Chloride w KCl 20 MEQ/1,000 ML MLS IVC SCH (22:39)
[2018-06-02 22:59] LABS: Estimated Average Glucose 289 mg/dl; Hemoglobin A1C 11.7 %
--- NOTE | 2018-06-03 00:01 | Internal Med History&Physical ---
Date of Encounter: 06/02/18 Time of Encounter: 20:15 Internal Medicine - H&P: HPI Chief complaint: BKA stump cellulitis Admitted From: Emergency Dept Plans for Post Hospital Care: Home History of present illness: Ms. Anthony Cook is a 57 year old female who presents to the ER today with concerns of infection and swelling in her right BKA stump. She wears a prosthetic leg and noticed that over the last several days she has had some redness, swelling, tenderness, and some subtle skin breakdown along the bottom of her stump. 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 In the ER, she was found to have evidence of cellulitis, and she was admitted to hospitalist service with podiatry consultation. Upon my assessment of the patient, she confirms the above history. She denies any fevers or chills or night sweats. She has had increasing redness, swelling, pain, and inability to wear her prosthetic leg, however. These symptoms have all progressed over the last 24-48 hours. She is diabetic, and normally her glucose is well-controlled. However, she states her glucose has been running high the last 1-2 days. She denies any vomiting, diarrhea, fever, cough, shortness of breath. She did have a GI virus last week, but the symptoms have all resolved. Past Med Surg Social Fam HX - Past Medical History Attestation: Yes The following information was validated with the patient. Source: patient, old records reviewed Medical history: diabetes, GERD Additional medical history: hemangioma on liver. Psychiatric history: anxiety, depression - Past Surgical History Surgical History: cholecystectomy, other Additional surgical history: Right BKA - Social History Smoking Status: Former smoker Smokeless Tobacco Status: No Alcohol use: none Drug use: none Current living situation: Home, With Family Activity Level: Independent ambulation Recent Out of Country Travel Within the Last 8 Weeks: No - Family History Mother Living Status: Hx Family Cardiac Disorders: Yes Hx Family Respiratory Disorders: No Hx Family Cancer: Yes Hx Family GI Disorders: No Hx Family Endocrine Disorder: No Hx Family Neuromuscular Disorders: No Hx Family Neurologic Disorders: No Hx Family HEENT Disorders: No Hx Family Autoimmune Disorders: No Father Living Status: Hx Family Cardiac Disorders: Yes Hx Family Endocrine Disorder: Yes Internal Medicine - H&P: Meds Sertraline [Zoloft] 100 mg PO DAILY 10/15/14 [History] Omeprazole [PriLOSEC] 20 mg PO DAILY 06/19/16 [History] OxyCODONE/APAP 5/325 [Percocet 5/325 MG] 1 tab PO TID PRN 08/03/17 [History] Insulin Aspart Prot/Insuln Asp [Novolog Mix 70-30 Vial] 40 unit SQ BID #5 vial 04/10/18 [Rx] Allergy/AdvReac Type Severity Reaction Status Date / Time No Known Allergies Allergy Verified 08/03/17 21:31 - Constitutional Constitutional: no chills, no fever(s), no night sweats - EENT Eyes: no blurry vision, no change in vision Ears: no ear pain, no tinnitus Nose, mouth and throat: no nasal congestion, no sinus pressure, no sore throat - Cardiovascular Cardiovascular ROS IM: no chest pain, no dyspnea, no dyspnea on exertion - Respiratory Respiratory: no cough, no hemoptysis, no chest congestion, no change in phlegm color - Gastrointestinal Gastrointestinal: no abdominal pain, no diarrhea, no hematemesis, no hematochezia, no melena, no nausea, no vomiting - Genitourinary Genitourinary: no dysuria, no flank pain, no hematuria - Musculoskeletal Musculoskeletal ROS IM: arthralgias (R BKA stump) - Integumentary Integumentary IM: erythema (BKA stump), sores (R BKA stump), no rash, no jaundice - Neurological Neurological ROS: no dizziness, no focal weakness, no frequent falls, no headache(s) - Psychiatric Psychiatric: no anxiety, no depression - Endocrine Endocrine IM: no cold intolerance, no heat intolerance, no polydipsia, no polyuria - Allergic/Immunologic Allergic/Immunologic: no GI upset with certain foods - Constitutional Vitals: Temp Pulse Resp BP Pulse Ox 97.6 F 106 15 152/71 95 06/02/18 20:35 06/02/18 20:35 06/02/18 20:35 06/02/18 20:35 06/02/18 20:35 General appearance: Present: cooperative, A&O X 3, pleasant, no acute distress, answers questions appropriately Exam: see below - Head Head exam: Present: atraumatic, normal inspection - Eye Eye exam: Present: EOMI, PERRL. Absent: scleral icterus Pupils: Present: normal accommodation - ENT ENT exam: Present: mucous membranes dry, normal exam, normal oropharynx - Neck Neck exam general surgery: Present: full ROM, supple, trachea midline. Absent: tenderness, nuchal rigidity, thyromegaly - Respiratory Respiratory exam: Present: CTAB. Absent: chest wall tenderness, rales, rhonchi, wheezes - Cardiovascular Cardiovascular exam: Present: RRR, +S1, +S2. Absent: diastolic murmur, systolic murmur - GI/Abdominal GI/Abdominal exam: Present: normal bowel sounds, soft. Absent: guarding, hepatomegaly, mass, splenomegaly, tenderness - Extremities Exam Extremities exam: Present: normal capillary refill, tenderness (R BKA stump), warm, radial pulses palpable and symmetrical. Absent: calf tenderness, mottling, pedal edema Additional comments: R BKA stump with surrounding redness, warmth, tenderness, and mild skin breakdown along bottom - Back Exam Back exam: Absent: CVA tenderness (L), CVA tenderness (R) - Neurological Exam Neurological exam: Present: alert, CN II-XII intact, oriented X3, no focal deficits, strengths equal and symetr throughout - Psychiatric Psychiatric exam: Present: normal affect, normal mood - Skin Skin exam: Present: dry, intact, warm Additional comments: R BKA stump as above Internal Med - H&P Results - Labs CBC & Chem 7: 06/02/18 15:41 06/02/18 15:41 Labs: Short CBC 06/02/18 Range/Units 15:41 WBC 9.7 (4.3-11.1) K/mcL Hgb 11.9 (11.5-15.4) g/dL Hct 38.6 (35.3-44.9) % Plt Count 175 (140-400) K/mcL Neutrophils # 8.0 (1.6-8.9) K/mcL BMP 06/02/18 15:41 Sodium 131 L Potassium 3.6 Chloride 97 L Carbon Dioxide 25 BUN 10 Creatinine 0.54 L Glucose 397 H Calcium 8.8 - Impressions ITS Impressions Tibia/Fibula X-Ray 06/02/18 16:07 IMPRESSION: Soft tissue swelling surrounding the surgical stump. No definite radiographic evidence of acute osteomyelitis. D/ / 06/02/2018 17:10:56 Faizan Shaver MD / florentin Interpreting Provider: Faizan Shaver MD - Assessment and Plan (1) Cellulitis Current Visit: Yes Status: Acute Assessment and plan: 1. Will order blood cultures as these were not done in ER. 2. Will order Vancomycin and Zosyn and monitor clinically. 3. Called and discussed with Podiatry -- Dr. Mtz. 4. Trend ESR, CRP as necessary to assist with monitoring treatment response. Qualifiers: Site of cellulitis: other site Qualified Code(s): L03.818 - Cellulitis of other sites (2) IDDM (insulin dependent diabetes mellitus) Current Visit: Yes Status: Chronic Assessment and plan: 1. Will continue basal insulin and add SSI. 2. Monitor glucose closely. 3. Adjust insulin as necessary. (3) DVT prophylaxis Current Visit: Yes Status: Acute Assessment and plan: 1. Heparin SQ.
[2018-06-03] MEDS: *HR* OxyCODONE/APAP 5/325 TABLET PO PRN ×2 (00:11→14:14)
[2018-06-03] MEDS: Piperacillin/Tazobactam 3.375 GM in 0.9 % Sodium Chloride Mini Bag 100 ML IVPB SCH ×3 (00:11→17:05)
[2018-06-03] MEDS: *HR* Heparin 5,000 UNIT/ML VIAL SQ SCH ×2 (06:00→17:06)
[2018-06-03 06:42] LABS: Basophils % 0.2 %; Eosinophils # 0.1 K/mcL (0.0-0.6); Eosinophils % 1.1 %; Hematocrit 36.5 % (35.3-44.9); Hemoglobin 11.2 g/dL (11.5-15.4); Immature Granulocytes % 0.6 % (0-4); Lymphocytes # 1.7 K/mcL (0.6-4.6); Lymphocytes % 20.3 %; Mean Corpuscular HGB Conc 30.7 g/dL (31.6-35.5); Mean Corpuscular Hemoglobin 24.1 pg (28.0-33.3); Mean Corpuscular Volume 78.7 fL (83.0-100.0); Mean Platelet Volume 11.1 fL (9.4-12.4); Monocytes # 0.4 K/mcL (0.0-1.3); Monocytes % 4.2 %; Neutrophils # 6.3 K/mcL (1.6-8.9); Platelet Count 181 K/mcL (140-400); Red Blood Count 4.64 M/mcL (3.82-4.97); Red Cell Distribution Width 15.3 % (11.5-14.5); Segmented Neutrophils % 73.6 %
[2018-06-03 07:04] LABS: Alanine Aminotransferase 6 Units/L (7-52); Albumin 3.2 g/dL (3.5-5.7); Alkaline Phosphatase 106 Units/L (34-104); Aspartate Amino Transferase 6 Units/L (13-39); BUN/Creatinine Ratio 24 (6-26); Bilirubin,Total 0.7 mg/dL (0.3-1.0); Blood Urea Nitrogen 13 mg/dL (6-20); Calcium 8.5 mg/dL (8.6-10.3); Carbon Dioxide 28 mEq/L (23-29); Chloride 102 mEq/L (98-107); Globulin 3.1 g/dL (2.4-3.5); Glucose 292 mg/dL (70-105); Osmolality,Calculated 293 (280-300); Potassium 4.2 mEq/L (3.5-5.1); Sodium 136 mEq/L (136-145); Total Protein 6.3 g/dL (6.4-8.9); eGFR For Non-African Americans > 60 (> 60)
[2018-06-03] MEDS ORDERED: Insulin LISPRO 300 UNITS/3 ML VIAL SQ SCH (07:30)
[2018-06-03] MEDS: Insulin NPH/REG 70/30 100 UNIT/ML (x5UNIT) SQ SCH (08:59)
[2018-06-03] MEDS: 0.9 % Sodium Chloride w KCl 20 MEQ/1,000 ML MLS IVC SCH (09:00)
--- NOTE | 2018-06-03 09:27 | Podiatry Consult Note ---
Date of Encounter: 06/03/18 Time of Encounter: 09:25 Assessment and Plan (1) Cellulitis Current visit: Yes Status: Acute 1. Continue IV antibiotics. No abscess or wound tissue to obtain cultures. Will continue to monitor cellulitis on IV antibiotics and will plan for I&D as needed. Qualifiers: Site of cellulitis: other site Qualified Code(s): L03.818 - Cellulitis of other sites (2) BKA stump complication Current visit: No Status: Acute 1. Patient has a wound with cellulitis at the right leg BKA stump. Wound painted with betadine and covered with dry dressing. Xrays without evidence of osteomyelitis. Will order repeat ESR and CRP after 48 hours of IV antibiotics. Will consider MRI of the knee and tib/fib for evidence of osteomyelitis, but given the previous amputation and stress on the stump, edema of the bone could resemble osteomyelitis. Plan for local wound care and IV antibiotics for now. Patient agrees with this plan. Code(s): T87.9 - Unspecified complications of amputation stump SNOMED Code(s): 926584573, 861908879 History of Present Illness Chief complaint: right leg BKA stump infection HPI: Ms. Anthony Cook is a 57 year old female presenting with concern for infection of her right BKA stump. She reports having a BKA over 2 years ago. She states that Dr. Lenz is now managing her wound care a the stump. She states that she developed a small blister due to her prosthetic, and over the past week she has noticed increased redness and swelling from the stump. She denies n/v/f/c. She states that she has not been doing any wound care to the stump besides padding in her prosthetic. Xrays showed no evidence of soft tissue gas or osteomyelitis. ESR was 120 and CRP 233 on admission. WBC normal. Past Med Surg Social Fam HX - Past Medical History Medical history: diabetes, GERD Additional medical history: hemangioma on liver. Psychiatric history: anxiety, depression - Past Surgical History Surgical History: cholecystectomy, other Additional surgical history: Right BKA - Social History Smoking Status: Former smoker Smokeless Tobacco Status: No Alcohol use: none Drug use: none - Family History Mother Living Status: Hx Family Cardiac Disorders: Yes Hx Family Respiratory Disorders: No Hx Family Cancer: Yes Hx Family GI Disorders: No Hx Family Endocrine Disorder: No Hx Family Neuromuscular Disorders: No Hx Family Neurologic Disorders: No Hx Family HEENT Disorders: No Hx Family Autoimmune Disorders: No Father Living Status: Hx Family Cardiac Disorders: Yes Hx Family Endocrine Disorder: Yes Medications and Allergies Sertraline [Zoloft] 100 mg PO DAILY 10/15/14 [History] Omeprazole [PriLOSEC] 20 mg PO DAILY 06/19/16 [History] OxyCODONE/APAP 5/325 [Percocet 5/325 MG] 1 tab PO TID PRN 08/03/17 [History] Insulin Aspart Prot/Insuln Asp [Novolog Mix 70-30 Vial] 40 unit SQ BID #5 vial 04/10/18 [Rx] Allergy/AdvReac Type Severity Reaction Status Date / Time No Known Allergies Allergy Verified 08/03/17 21:31 All Systems Reviewed: The remainder of the systems were reviewed and are negative Physical Exam - Constitutional Vitals: Temp Pulse Resp BP Pulse Ox 97.8 F 76 15 105/68 92 06/03/18 06:35 06/03/18 06:35 06/03/18 06:35 06/03/18 06:35 06/03/18 06:35 Exam: Alert, oriented x3, no acute distress. Vascular: Capillary refill brisk to right BKA stump. Dermatology: Superficial ulceration limited to breakdown of skin right distal stump 2cm x 0.5cm. No active drainage. No probe to bone. Moderate edema and erythema extending approximately 5cm from the distal stump circumferentially. Musculoskeletal: Right BKA. No pain at the distal stump. Neuro: Sensations diminished distally. Results - Labs Result Diagrams: 06/03/18 06:22 06/03/18 06:22 Labs: Abnormal lab results Hgb 11.2 g/dL (11.5-15.4) L 06/03/18 06:22 MCV 78.7 fL (83.0-100.0) L 06/03/18 06:22 MCH 24.1 pg (28.0-33.3) L 06/03/18 06:22 MCHC 30.7 g/dL (31.6-35.5) L 06/03/18 06:22 RDW 15.3 % (11.5-14.5) H 06/03/18 06:22 ESR 120 mm/hr (0-15) H 06/02/18 15:41 Creatinine 0.54 mg/dL (0.60-1.20) L 06/03/18 06:22 Glucose 292 mg/dL (70-105) H 06/03/18 06:22 POC Glucose 236 mg/dL (70-99) H 06/02/18 21:19 Hemoglobin A1c 11.7 % (-5.6) H 06/02/18 22:15 Calcium 8.5 mg/dL (8.6-10.3) L 06/03/18 06:22 AST 6 Units/L (13-39) L 06/03/18 06:22 ALT 6 Units/L (7-52) L 06/03/18 06:22 Alkaline Phosphatase 106 Units/L (34-104) H 06/03/18 06:22 C-Reactive Protein 233 mg/L (Less than 10) H 06/02/18 15:41 Serum Total Protein 6.3 g/dL (6.4-8.9) L 06/03/18 06:22 Albumin 3.2 g/dL (3.5-5.7) L 06/03/18 06:22 Albumin/Globulin Ratio 1.0 (1.1-2.2) L 06/03/18 06:22 H & H 06/02/18 06/03/18 Range/Units 15:41 06:22 Hgb 11.9 11.2 L (11.5-15.4) g/dL Hct 38.6 36.5 (35.3-44.9) % All other labs normal. Consult Discharge Plan - Plan Referrals: Almas Ac DO [Primary Care Provider] -
[2018-06-03] MEDS ORDERED: *HR* Dextrose 50 % in Water (Syg) 50 ML SYRINGE IVP PRN (10:01)
[2018-06-03] MEDS ORDERED: D5% in Water 1,000 ML IVC PRN (10:01)
[2018-06-03] MEDS ORDERED: Dextrose Gel 15 GM/37.5 ML TUBE PO PRN ×2 (10:01)
--- NOTE | 2018-06-03 10:08 | Internal Med Progress Note ---
Date of Encounter: 06/03/18 Time of Encounter: 10:06 - Assessment and plan (1) Cellulitis Current Visit: Yes Status: Acute Assessment and plan: Antibiotics in place, no changes at this time. DVT prophylaxis in place. Qualifiers: Site of cellulitis: other site Qualified Code(s): L03.818 - Cellulitis of other sites (2) IDDM (insulin dependent diabetes mellitus) Current Visit: Yes Status: Chronic Assessment and plan: Modified insulin schedule. (3) Diabetic ulcer of left foot Current Visit: No Status: Chronic Assessment and plan: Stable on the left plantar aspect. Qualifiers: Diabetic foot ulcer location: unspecified part of foot Diabetes mellitus type: type 2 Non-pressure ulcer stage: limited to breakdown of skin Qualified Code(s): E11.621 - Type 2 diabetes mellitus with foot ulcer; L97.521 - Non-pressure chronic ulcer of other part of left foot limited to breakdown of skin - Subjective Interval history: She is stable, pleasant, no new concerns. Dietary has wrapped the right stump's morning. Her sedimentation rate is significantly elevated, but may or may not signify bony involvement, right now holding on any further imaging. Appropriate antibiotics in place, day 1. Sugars remain quite high, therefore will modify subcutaneous insulin. Note is made of a stable, plantar metatarsal head ulceration on the left. - Constitutional Vitals: Temp Pulse Resp BP Pulse Ox 97.8 F 76 15 105/68 92 06/03/18 06:35 06/03/18 06:35 06/03/18 06:35 06/03/18 06:35 06/03/18 06:35 General appearance: Present: cooperative, A&O X 3, pleasant, no acute distress, answers questions appropriately - Neck Neck exam general surgery: Present: supple, trachea midline - Respiratory Respiratory exam: Present: CTAB - Cardiovascular Cardiovascular exam: Present: RRR, +S1, +S2. Absent: JVD - GI/Abdominal GI/Abdominal exam: Present: normal bowel sounds, soft, no peritoneal signs. Ab sent: tenderness - Extremities Exam Extremities exam: Present: warm Additional comments: The right stump again was dry dressing, was not examined, due to recent care with podiatry. Left foot without any worrisome changes, there may be chronic small vessel ischemic changes noted. Stable plantar ulcer, quarter sized on the first metatarsal head. Internal Medicine: Result - Labs CBC & Chem 7: 06/03/18 06:22 06/03/18 06:22 Labs: Short CBC 06/02/18 06/03/18 Range/Units 15:41 06:22 WBC 9.7 8.6 (4.3-11.1) K/mcL Hgb 11.9 11.2 L (11.5-15.4) g/dL Hct 38.6 36.5 (35.3-44.9) % Plt Count 175 181 (140-400) K/mcL Neutrophils # 8.0 6.3 (1.6-8.9) K/mcL BMP 06/02/18 06/03/18 15:41 06:22 Sodium 131 L 136 Potassium 3.6 4.2 Chloride 97 L 102 Carbon Dioxide 25 28 BUN 10 13 Creatinine 0.54 L 0.54 L Glucose 397 H 292 H Calcium 8.8 8.5 L Liver Function 06/03/18 Range/Units 06:22 Total Bilirubin 0.7 (0.3-1.0) mg/dL AST 6 L (13-39) Units/L ALT 6 L (7-52) Units/L Alkaline Phosphatase 106 H (34-104) Units/L Albumin 3.2 L (3.5-5.7) g/dL - Impressions Impressions Tibia/Fibula X-Ray 06/02/18 16:07 IMPRESSION: Soft tissue swelling surrounding the surgical stump. No definite radiographic evidence of acute osteomyelitis. D/ / 06/02/2018 17:10:56 Faizan Shaver MD / florentin Interpreting Provider: Faizan Shaver MD Consult Discharge Plan - Plan Referrals: Almas Ac DO [Primary Care Provider] -
[2018-06-03] MEDS: Insulin LISPRO 300 UNITS/3 ML VIAL SQ SCH ×4 (11:16→17:09)
[2018-06-03] MEDS: Insulin DETEMIR 100 UNIT/ML X5UNITS SQ SCH (21:10)
[2018-06-04] MEDS: Piperacillin/Tazobactam 3.375 GM in 0.9 % Sodium Chloride Mini Bag 100 ML IVPB SCH ×3 (00:10→17:23)
[2018-06-04] MEDS: *HR* OxyCODONE/APAP 5/325 TABLET PO PRN (00:10)
[2018-06-04] MEDS: Insulin LISPRO 300 UNITS/3 ML VIAL SQ SCH ×7 (02:48→17:22)
[2018-06-04] MEDS: *HR* Heparin 5,000 UNIT/ML VIAL SQ SCH ×2 (05:26→17:23)
[2018-06-04] MEDS: Insulin DETEMIR 100 UNIT/ML X5UNITS SQ SCH ×2 (09:24→20:20)
--- NOTE | 2018-06-04 14:07 | Podiatry Progress Note ---
Date of Encounter: 06/04/18 Time of Encounter: 12:45 - Assessment and Plan (1) Cellulitis Current Visit: Yes Status: Acute Assessment: Erythema and warmth noted to right stump Does not extend past demarcation line WBC 8.6 ESR 120, now 98 CRP 233, now 97 HGB A1C 11.7 Xray negative for OM Healing wound noted to distal aspect of stump, scabbed area noted. No active drainage noted, no streaking noted, no foul odor noted Palpable popliteal artery Agree with current ATB, zosyn and vanc Plan: Continue ATB per primary team, may consider de-escalation or switching to PO if plan for D/C. Painted scabbed area with betadine. Covered with 4x4 dry gauze and kerlix. Secured with paper tape Qualifiers: Site of cellulitis: other site Qualified Code(s): L03.818 - Cellulitis of other sites (2) BKA stump complication Current Visit: No Status: Acute Assessment: See Above Plan: See above (3) Ulcer of left foot Current Visit: Yes Status: Chronic Assessment: Chronic Reyna stage 1 ulceration to left submetatarsal #1 Does not probe to bone Minimal serosanginous drainage noted No erythema, no edema, no streaking, no foul odor Hyperkeratotic tissue surrounding ulceration WBC 8.6, ESR 98, CRP 97 Plan: Will debride tomorrow if patient still here Covered with adaptic, 4x4 dry gauze, and kerlix Secured with paper tape Follow up in wound care with Dr. Lenz. Please schedule appointment prior to d/c. Qualifiers: Non-pressure ulcer stage: limited to breakdown of skin Qualified Code(s): L97.521 - Non-pressure chronic ulcer of other part of left foot limited to breakdown of skin Subjective Interval history: Patient awake sitting in bed. Alert and oriented x 3. Patient reports she is going to be discharged tomorrow. Denies fevers, chills, nausea, vomiting, or diarrhea. Denies calf pain, chest pain, or shortness of breath. Objective - Vital Signs Vital Signs: Vital Signs Temp Pulse Resp BP Pulse Ox 06/04/18 13:59 97.6 F 86 15 103/64 95 06/04/18 10:14 97.9 F 80 15 107/62 94 06/04/18 08:31 98.2 F 68 18 116/70 95 06/04/18 05:35 98.5 F 82 15 101/62 90 06/03/18 19:17 97.3 F L 82 16 103/62 94 06/03/18 14:13 97.9 F 83 15 98/52 96 Intake and Output 06/03/18 06/04/18 06/04/18 23:59 07:59 15:59 Intake Total 1350 / 1350 100 / 100 830 / 830 Output Total 0 / 0 0 / 0 350 / 350 Balance 1350 / 1350 100 / 100 480 / 480 Intake: IV Fluids 1350 / 1350 100 / 100 350 / 350 KCl 20 mEq in 0.9% Sodium 1000 / 1000 Chloride 20 meq In 1,000 ml @ 100 mls/hr IVC .Q10H JULIEN Rx#: [id number] Zosyn 3.375 GM In 0.9 % Sodium 100 / 100 100 / 100 100 / 100 Chloride (Mini-Bag +) 100 ML @ 25 mls/hr IVPB Q8HR JULIEN Rx#: [id number] Vancocin 1,250 MG In 0.9 % 250 / 250 250 / 250 Sodium Chloride 250 ML @ 167 mls/hr IVPB Q12H JULIEN Rx#: [id number] Oral 0 / 0 0 / 0 480 / 480 Output: Urine 0 / 0 0 / 0 350 / 350 Other: Meal Dinner Lunch Percent of Meal Consumed 95% 100% Stool Size Large Stool Consistency loose formed Stool Color Brown # Bowel Movements 1 Weight 83.5 kg Blood Glucose* 153 203 Patient Weight 06/04/18 23:59 Weight 83.5 kg - Exam Exam: Constitiutional: Alert and oriented x 3. Well nourished. No acute distress noted Vascular: 1/4 popliteal artery right, 1/4 DP/PT LLE, CFT <3 sec to all digits LLE, warm to warm from tibia to toes LLE, hot to touch RLE, R BKA Neurologic: Diminished sensation to touch, normal plantar response, abormal position sense dorsiflexion/plantar flexion Dermatologic: Reyna grade 1 ulcer left submetatarsal #1, healing wound distal stump right BKA Musculoskeletal: 3/5 muscle strength. - Lab Result Diagrams: 06/03/18 06:22 06/03/18 06:22 Labs: Abnormal lab results Hgb 11.2 g/dL (11.5-15.4) L 06/03/18 06:22 MCV 78.7 fL (83.0-100.0) L 06/03/18 06:22 MCH 24.1 pg (28.0-33.3) L 06/03/18 06:22 MCHC 30.7 g/dL (31.6-35.5) L 06/03/18 06:22 RDW 15.3 % (11.5-14.5) H 06/03/18 06:22 ESR 98 mm/hr (0-15) H 06/04/18 12:38 Creatinine 0.54 mg/dL (0.60-1.20) L 06/03/18 06:22 Glucose 292 mg/dL (70-105) H 06/03/18 06:22 POC Glucose 215 mg/dL (70-99) H 06/04/18 08:33 Hemoglobin A1c 11.7 % (-5.6) H 06/02/18 22:15 Calcium 8.5 mg/dL (8.6-10.3) L 06/03/18 06:22 AST 6 Units/L (13-39) L 06/03/18 06:22 ALT 6 Units/L (7-52) L 06/03/18 06:22 Alkaline Phosphatase 106 Units/L (34-104) H 06/03/18 06:22 C-Reactive Protein 97 mg/L (Less than 10) H 06/04/18 12:38 Serum Total Protein 6.3 g/dL (6.4-8.9) L 06/03/18 06:22 Albumin 3.2 g/dL (3.5-5.7) L 06/03/18 06:22 Albumin/Globulin Ratio 1.0 (1.1-2.2) L 06/03/18 06:22 Vancomycin Trough 12 mcg/mL (5-10) H 06/04/18 06:40 Microbiology, Last 48 Hours 06/02/18 22:15 Blood Culture - Preliminary Peripheral Venipuncture Culture is incubating and being continuously monitored for growth. Final report to follow. 06/02/18 22:10 Blood Culture - Preliminary Peripheral Venipuncture Culture is incubating and being continuously monitored for growth. Final report to follow. Consult Discharge Plan - Plan Referrals: Almas Ac DO [Primary Care Provider] -
--- NOTE | 2018-06-04 19:40 | Internal Med Progress Note ---
<Susana Flores - Last Filed: 06/04/18 19:36> Hospitalist Progress Note - Encounter Date of Encounter: 06/04/18 Time of Encounter: 09:00 - Subjective Interval History: Ms. Cruz was seen at bedside this morning. Her vitals were reviewed and she remained afebrile overnight. She was resting comfortably in did not complain of any fever, chills, nausea, emesis. She also denied any pain of her right lower leg. - Exam Vitals: Temp Pulse Resp BP Pulse Ox 97.6 F 86 15 103/64 95 06/04/18 13:59 06/04/18 13:59 06/04/18 13:59 06/04/18 13:59 06/04/18 13:59 Exam: Gen: Vitals noted. No acute distress. Appears comfortable. Neck: Trachea midline; supple Cardiac: RRR, no murmur, +S1/S2. No JVD noted. Pulmonary: CTA bilaterally, no wheezes, rales or rhonchi, equal chest expansion Abdomen: soft, nontender, no guarding. No masses Extremities: no edema, nontender Skin: Right lower leg is amputated below the knee with dressing, left plantar aspect has a healing ulcer Neuro: moves all extremities, no focal deficits. Psych: Appropriate mood and behavior. A&Ox3 - Assessment and Plan (1) Cellulitis Current Visit: Yes Status: Acute Assessment and Plan: Presented with right edema and pain of the right stump. She follows with podiatry on a regular basis due to worsening of her symptoms she presented to the ED 2 days ago. Podiatry has been consulted and recommending medical management. Her CRP was elevated at 233 on 9 repeat CRP on 06/04/18 was 98. She had an x-ray of the right lower leg which did not show findings of osteomyelitis. At this time podiatry recommends IV antibiotics and if symptoms do not improve would recommend MRI of the right lower leg. -Continue vancomycin day 3 and Zosyn day 2; duration of treatment depends on clinical picture. -Continue home Percocet for pain control (2) Diabetic ulcer of left foot Current Visit: No Status: Chronic Assessment and Plan: History of left plantar aspect ulcer. This morning the ulcer was healing without any purulence noted. Podiatry is consulted and getting regular dressing changes. Continue to stabilize glucose. (3) IDDM (insulin dependent diabetes mellitus) Current Visit: Yes Status: Chronic Assessment and Plan: History of uncontrolled diabetes is on insulin at home. At presentation her hemoglobin A1c was noted to be 11.7. -Continue detemir 20 units twice a day-continue lispro 6 units 3 times a day -Continue sliding-scale lispro -We will continue to monitor glucose (4) GERD (gastroesophageal reflux disease) Current Visit: Yes Status: Acute Assessment and Plan: Continue omeprazole (5) Depression Current Visit: Yes Status: Acute Assessment and Plan: Continue home sertraline DVT Prophylaxis: Subcutaneous heparin - Time Spent with Patient Total time spent is greater than 50% in coordination of care (as documented) at patient's floor/unit and/or counseling patient: Internal Medicine: Result - Labs CBC & Chem 7: 06/03/18 06:22 06/03/18 06:22 Consult Discharge Plan - Plan Additional Instructions: Follow up in wound care with Dr. Lenz next week. Please make appointment prior to d/c Referrals: Almas Ac DO [Primary Care Provider] - <Tacho Pritchard - Last Filed: 06/05/18 18:49> Hospitalist Progress Note - Encounter Date of Encounter: 06/05/18 - Exam Vitals: Temp Pulse Resp BP Pulse Ox 97.3 F L 81 16 115/52 94 06/05/18 15:00 06/05/18 15:00 06/05/18 15:00 06/05/18 15:00 06/05/18 15:00 - Assessment and Plan (1) Diabetic ulcer of left foot Current Visit: No Status: Chronic (2) Cellulitis Current Visit: Yes Status: Acute (3) IDDM (insulin dependent diabetes mellitus) Current Visit: Yes Status: Chronic (4) GERD (gastroesophageal reflux disease) Current Visit: Yes Status: Acute (5) Depression Current Visit: Yes Status: Acute - Time Spent with Patient Total time spent is greater than 50% in coordination of care (as documented) at patient's floor/unit and/or counseling patient: Internal Medicine: Result - Labs CBC & Chem 7: 06/05/18 06:19 06/03/18 06:22 Labs: Short CBC 06/05/18 Range/Units 06:19 WBC 8.1 (4.3-11.1) K/mcL Hgb 10.3 L (11.5-15.4) g/dL Hct 34.4 L (35.3-44.9) % Plt Count 262 (140-400) K/mcL Neutrophils # 5.7 (1.6-8.9) K/mcL - Attending Attestation I examined this patient and my medical decision-making was reviewed with the Resident Physician. I agree with the documented findings, disposition and treatment plan as described except to the extent set forth below. _ <Susana Flores - Last Filed: 06/04/18 19:36> (1) Cellulitis Qualifiers: Site of cellulitis: other site Qualified Code(s): L03.818 - Cellulitis of other sites (2) Diabetic ulcer of left foot Qualifiers: Diabetic foot ulcer location: unspecified part of foot Diabetes mellitus type: type 2 Non-pressure ulcer stage: limited to breakdown of skin Qualified Code(s): E11.621 - Type 2 diabetes mellitus with foot ulcer; L97.521 - Non- pressure chronic ulcer of other part of left foot limited to breakdown of skin (4) GERD (gastroesophageal reflux disease) Qualifiers: Esophagitis presence: esophagitis presence not specified Qualified Code(s): K21.9 - Gastro-esophageal reflux disease without esophagitis (5) Depression Qualifiers: Depression Type: major depressive disorder Major depression recurrence: unspecified whether recurrent Major depression episode severity: unspecified <Tacho Pritchard - Last Filed: 06/05/18 18:49> (1) Diabetic ulcer of left foot Qualifiers: Diabetic foot ulcer location: unspecified part of foot Diabetes mellitus type: type 2 Non-pressure ulcer stage: limited to breakdown of skin Qualified Code(s): E11.621 - Type 2 diabetes mellitus with foot ulcer; L97.521 - Non- pressure chronic ulcer of other part of left foot limited to breakdown of skin (2) Cellulitis Qualifiers: Site of cellulitis: other site Qualified Code(s): L03.818 - Cellulitis of other sites (4) GERD (gastroesophageal reflux disease) Qualifiers: Esophagitis presence: esophagitis presence not specified Qualified Code(s): K21.9 - Gastro-esophageal reflux disease without esophagitis (5) Depression Qualifiers: Depression Type: major depressive disorder Major depression recurrence: unspecified whether recurrent Major depression episode severity: unspecified
[2018-06-05] MEDS: Piperacillin/Tazobactam 3.375 GM in 0.9 % Sodium Chloride Mini Bag 100 ML IVPB SCH ×3 (00:15→17:47)
[2018-06-05] MEDS: Insulin LISPRO 300 UNITS/3 ML VIAL SQ SCH ×8 (01:23→22:01)
[2018-06-05] MEDS: *HR* Heparin 5,000 UNIT/ML VIAL SQ SCH ×2 (05:33→17:48)
[2018-06-05 07:36] LABS: Basophils % 0.1 %; Eosinophils # 0.1 K/mcL (0.0-0.6); Eosinophils % 1.6 %; Hematocrit 34.4 % (35.3-44.9); Hemoglobin 10.3 g/dL (11.5-15.4); Immature Granulocytes % 1.6 % (0-4); Lymphocytes # 1.5 K/mcL (0.6-4.6); Lymphocytes % 18.7 %; Mean Corpuscular HGB Conc 29.9 g/dL (31.6-35.5); Mean Corpuscular Volume 80.2 fL (83.0-100.0); Mean Platelet Volume 10.9 fL (9.4-12.4); Monocytes # 0.6 K/mcL (0.0-1.3); Monocytes % 7.2 %; Neutrophils # 5.7 K/mcL (1.6-8.9); Platelet Count 262 K/mcL (140-400); Red Blood Count 4.29 M/mcL (3.82-4.97); Red Cell Distribution Width 15.5 % (11.5-14.5); Segmented Neutrophils % 70.8 %
[2018-06-05] MEDS: Insulin DETEMIR 100 UNIT/ML X5UNITS SQ SCH ×2 (10:36→22:01)
--- NOTE | 2018-06-05 14:01 | Podiatry Progress Note ---
Date of Encounter: 06/05/18 Time of Encounter: 11:45 - Assessment and Plan (1) Cellulitis Current Visit: Yes Status: Acute Assessment: Erythema and warmth noted to right stump Does not extend past demarcation line WBC 8.1 ESR 98 CRP 97 HGB A1C 11.7 Xray negative for OM Healing wound noted to distal aspect of stump, scabbed area noted. No active drainage noted, no streaking noted, no foul odor noted Palpable popliteal artery Agree with current ATB, zosyn and vanc Blood cultures x 2 pending Plan: Continue ATB per primary team, may consider de-escalation or switching to PO if plan for D/C. Painted scabbed area with betadine. Open to air Qualifiers: Site of cellulitis: other site Qualified Code(s): L03.818 - Cellulitis of other sites (2) BKA stump complication Current Visit: No Status: Acute Assessment: See Above Plan: See above (3) Ulcer of left foot Current Visit: Yes Status: Chronic Assessment: Chronic Reyna stage 1 ulceration to left submetatarsal #1 Does not probe to bone Minimal serosanginous drainage noted No erythema, no edema, no streaking, no foul odor Hyperkeratotic tissue surrounding ulceration WBC 8.1, ESR 98, CRP 97 Blood cultures pending x 2 Plan: Sharp surgical excisional debridement of all hyperkeratotic tissue/callus lesions submetatarsal #1 left foot with #15 scalpel blade reveals ulceration measuring 1.5 cm x 1 cm. x 0.1 cm. no undermining or tunneling noted. No cellulitis or lymphangitis noted. No abscess noted. Wound thoroughly irrigated with sterile saline. Dry sterile dressing applied with 4x4 dry gauze. Covered with kerlix and paper tape. Follow up in wound care with Dr. Lenz. Please schedule appointment prior to d/c. Qualifiers: Non-pressure ulcer stage: limited to breakdown of skin Qualified Code(s): L97.521 - Non-pressure chronic ulcer of other part of left foot limited to breakdown of skin Subjective Interval history: Patient awake sitting in bed. Alert and oriented x 3. Patient reports she is going to be discharged today. Denies fevers, chills, nausea, vomiting, or diarrhea. Denies calf pain, chest pain, or shortness of breath. Objective - Vital Signs Vital Signs: Vital Signs Temp Pulse Resp BP Pulse Ox 06/05/18 11:00 97.8 F 78 16 104/54 94 06/05/18 08:15 94 06/05/18 07:32 98.0 F 80 16 115/74 94 06/05/18 05:03 97.8 F 78 14 115/67 94 06/04/18 19:40 97.9 F 86 15 107/56 93 06/04/18 13:59 97.6 F 86 15 103/64 95 Intake and Output 06/04/18 06/05/18 06/05/18 23:59 07:59 15:59 Intake Total 710 / 710 100 / 100 240 / 240 Output Total 200 / 200 0 / 0 Balance 510 / 510 100 / 100 240 / 240 Intake: IV Fluids 350 / 350 100 / 100 Zosyn 3.375 GM In 0.9 % Sodium 100 / 100 100 / 100 Chloride (Mini-Bag +) 100 ML @ 25 mls/hr IVPB Q8HR JULI[facility] Rx#: [id number] Vancocin 1,250 MG In 0.9 % 250 / 250 Sodium Chloride 250 ML @ 167 mls/hr IVPB Q12H JULIEN Rx#: [id number] Oral 360 / 360 0 / 0 240 / 240 Output: Urine 200 / 200 0 / 0 Other: Meal Dinner Breakfast Percent of Meal Consumed 100% 100% Stool Size Small Stool Consistency loose liquid Stool Color Brown Yellow # Voids 1 # Bowel Movements 2 Weight 87.2 kg Blood Glucose* 245 179 154 Patient Weight 06/05/18 23:59 Weight 87.2 kg - Exam Exam: Constitiutional: Alert and oriented x 3. Well nourished. No acute distress noted Vascular: 1/4 popliteal artery right, 1/4 DP/PT LLE, CFT <3 sec to all digits LLE, warm to warm from tibia to toes LLE, warm to touch RLE, R BKA Neurologic: Diminished sensation to touch, normal plantar response, abormal position sense dorsiflexion/plantar flexion Dermatologic: Reyna grade 1 ulcer left submetatarsal #1, healing wound distal stump right BKA, minimal erythema noted to right stump Musculoskeletal: 3/5 muscle strength LLE. - Radiology X-Rays: report reviewed - Lab Result Diagrams: 06/05/18 06:19 06/03/18 06:22 Labs: Abnormal lab results Hgb 10.3 g/dL (11.5-15.4) L 06/05/18 06:19 Hct 34.4 % (35.3-44.9) L 06/05/18 06:19 MCV 80.2 fL (83.0-100.0) L 06/05/18 06:19 MCH 24.0 pg (28.0-33.3) L 06/05/18 06:19 MCHC 29.9 g/dL (31.6-35.5) L 06/05/18 06:19 RDW 15.5 % (11.5-14.5) H 06/05/18 06:19 ESR 98 mm/hr (0-15) H 06/04/18 12:38 Creatinine 0.54 mg/dL (0.60-1.20) L 06/03/18 06:22 Glucose 292 mg/dL (70-105) H 06/03/18 06:22 POC Glucose 154 mg/dL (70-99) H 06/05/18 11:03 Hemoglobin A1c 11.7 % (-5.6) H 06/02/18 22:15 Calcium 8.5 mg/dL (8.6-10.3) L 06/03/18 06:22 AST 6 Units/L (13-39) L 06/03/18 06:22 ALT 6 Units/L (7-52) L 06/03/18 06:22 Alkaline Phosphatase 106 Units/L (34-104) H 06/03/18 06:22 C-Reactive Protein 97 mg/L (Less than 10) H 06/04/18 12:38 Serum Total Protein 6.3 g/dL (6.4-8.9) L 06/03/18 06:22 Albumin 3.2 g/dL (3.5-5.7) L 06/03/18 06:22 Albumin/Globulin Ratio 1.0 (1.1-2.2) L 06/03/18 06:22 Vancomycin Trough 12 mcg/mL (5-10) H 06/04/18 06:40 Consult Discharge Plan - Plan Additional Instructions: Follow up in wound care with Dr. Lenz next week. Please make appointment prior to d/c Referrals: Almas Ac DO [Primary Care Provider] -
[2018-06-05] MEDS ORDERED: Gadolinium Contrast Agent (WT Based) IV PRN (16:37)
--- NOTE | 2018-06-05 17:43 | Internal Med Progress Note ---
<Susana Flores - Last Filed: 06/05/18 17:40> Hospitalist Progress Note - Encounter Date of Encounter: 06/05/18 Time of Encounter: 08:30 - Subjective Interval History: Ms. Joey Cruz was seen at bedside this morning. Her vitals were reviewed and she remained afebrile overnight. She denied any pain at the right lower leg amputation site. She was resting comfortably and denies any fever, chills, nausea, emesis, shortness of breath or chest pain. - Exam Vitals: Temp Pulse Resp BP Pulse Ox 97.3 F L 81 16 115/52 94 06/05/18 15:00 06/05/18 15:00 06/05/18 15:00 06/05/18 15:00 06/05/18 15:00 Exam: Gen: Vitals noted. No acute distress. Appears comfortable. Neck: Trachea midline; supple Cardiac: RRR, no murmur, +S1/S2. No JVD noted. Pulmonary: CTA bilaterally, no wheezes, rales or rhonchi, equal chest expansion Abdomen: soft, nontender, no guarding. No masses Extremities: no edema, nontender Skin: Right lower leg is amputated below the knee has erythema and tenderness around the amputation site, left plantar aspect has a healing ulcer Neuro: moves all extremities, no focal deficits. Psych: Appropriate mood and behavior. A&Ox3 - Assessment and Plan (1) Cellulitis Current Visit: Yes Status: Acute Assessment and Plan: Presented with right edema and pain of the right stump. She follows with podiatry on a regular basis due to worsening of her symptoms she presented to the ED 2 days ago. Podiatry has been consulted and recommending medical management. Her CRP was elevated at 233 on 9 repeat CRP on 06/04/18 was 97. She had an x-ray of the right lower leg which did not show findings of osteomy elitis. Her ESR was 120 at presentation repeat was 98 after 2 days of antibiotic. At this time podiatry recommends IV antibiotics and if symptoms do not improve would recommend MRI of the right lower leg. -Continue vancomycin day 4 and Zosyn day 3; duration of treatment depends on clinical picture. -Continue home Percocet for pain control -MRI of the right leg pending due to concern for osteomyelitis (2) Diabetic ulcer of left foot Current Visit: No Status: Chronic Assessment and Plan: History of left plantar aspect ulcer. There was some blood noted under the dressing. Had debridement of the ulcer this morning by podiatry Podiatry is consulted and getting regular dressing changes. Continue to stabilize glucose. (3) IDDM (insulin dependent diabetes mellitus) Current Visit: Yes Status: Chronic Assessment and Plan: History of uncontrolled diabetes is on insulin at home. At presentation her hemoglobin A1c was noted to be 11.7. Local is continues to remain elevated, this morning was 179 and this afternoon is 233. -Increased to 30 unit of detemir twice a day, also has 6 units 3 times a day with meals with medium corrective scale ordered -Continue sliding-scale lispro -We will continue to monitor glucose (4) GERD (gastroesophageal reflux disease) Current Visit: Yes Status: Acute Assessment and Plan: Continue omeprazole (5) Depression Current Visit: Yes Status: Acute Assessment and Plan: Continue home sertraline DVT Prophylaxis: Subcutaneous heparin - Time Spent with Patient Total time spent is greater than 50% in coordination of care (as documented) at patient's floor/unit and/or counseling patient: Internal Medicine: Result - Labs CBC & Chem 7: 06/05/18 06:19 06/03/18 06:22 Labs: Short CBC 06/05/18 Range/Units 06:19 WBC 8.1 (4.3-11.1) K/mcL Hgb 10.3 L (11.5-15.4) g/dL Hct 34.4 L (35.3-44.9) % Plt Count 262 (140-400) K/mcL Neutrophils # 5.7 (1.6-8.9) K/mcL Consult Discharge Plan - Plan Additional Instructions: Follow up in wound care with Dr. Lenz next week. Please make appointment prior to d/c Referrals: Almas Ac DO [Primary Care Provider] - <Tacho Pritchard - Last Filed: 06/05/18 18:44> Hospitalist Progress Note - Encounter Date of Encounter: 06/05/18 - Exam Vitals: Temp Pulse Resp BP Pulse Ox 97.3 F L 81 16 115/52 94 06/05/18 15:00 06/05/18 15:00 06/05/18 15:00 06/05/18 15:00 06/05/18 15:00 - Assessment and Plan (1) Diabetic ulcer of left foot Current Visit: No Status: Chronic (2) Cellulitis Current Visit: Yes Status: Acute (3) IDDM (insulin dependent diabetes mellitus) Current Visit: Yes Status: Chronic (4) GERD (gastroesophageal reflux disease) Current Visit: Yes Status: Acute (5) Depression Current Visit: Yes Status: Acute - Time Spent with Patient Total time spent is greater than 50% in coordination of care (as documented) at patient's floor/unit and/or counseling patient: Internal Medicine: Result - Labs CBC & Chem 7: 06/05/18 06:19 06/03/18 06:22 Labs: Short CBC 06/05/18 Range/Units 06:19 WBC 8.1 (4.3-11.1) K/mcL Hgb 10.3 L (11.5-15.4) g/dL Hct 34.4 L (35.3-44.9) % Plt Count 262 (140-400) K/mcL Neutrophils # 5.7 (1.6-8.9) K/mcL - Attending Attestation I examined this patient and my medical decision-making was reviewed with the Resident Physician. I agree with the documented findings, disposition and treatment plan as described except to the extent set forth below. <Susana Flores - Last Filed: 06/05/18 17:40> (1) Cellulitis Qualifiers: Site of cellulitis: other site Qualified Code(s): L03.818 - Cellulitis of other sites (2) Diabetic ulcer of left foot Qualifiers: Diabetic foot ulcer location: unspecified part of foot Diabetes mellitus type: type 2 Non-pressure ulcer stage: limited to breakdown of skin Qualified Code(s): E11.621 - Type 2 diabetes mellitus with foot ulcer; L97.521 - Non- pressure chronic ulcer of other part of left foot limited to breakdown of skin (4) GERD (gastroesophageal reflux disease) Qualifiers: Esophagitis presence: esophagitis presence not specified Qualified Code(s): K21.9 - Gastro-esophageal reflux disease without esophagitis (5) Depression Qualifiers: Depression Type: major depressive disorder Major depression recurrence: unspecified whether recurrent Major depression episode severity: unspecified <Tacho Pritchard - Last Filed: 06/05/18 18:44> (1) Diabetic ulcer of left foot Qualifiers: Diabetic foot ulcer location: unspecified part of foot Diabetes mellitus type: type 2 Non-pressure ulcer stage: limited to breakdown of skin Qualified Code(s): E11.621 - Type 2 diabetes mellitus with foot ulcer; L97.521 - Non- pressure chronic ulcer of other part of left foot limited to breakdown of skin (2) Cellulitis Qualifiers: Site of cellulitis: other site Qualified Code(s): L03.818 - Cellulitis of other sites (4) GERD (gastroesophageal reflux disease) Qualifiers: Esophagitis presence: esophagitis presence not specified Qualified Code(s): K21.9 - Gastro-esophageal reflux disease without esophagitis (5) Depression Qualifiers: Depression Type: major depressive disorder Major depression recurrence: unspecified whether recurrent Major depression episode severity: unspecified
[2018-06-05] MEDS ORDERED: Insulin DETEMIR 100 UNIT/ML X5UNITS SQ SCH (21:00)
[2018-06-06] MEDS: Piperacillin/Tazobactam 3.375 GM in 0.9 % Sodium Chloride Mini Bag 100 ML IVPB SCH ×3 (02:15→16:48)
[2018-06-06] MEDS: *HR* Heparin 5,000 UNIT/ML VIAL SQ SCH ×2 (05:56→18:56)
[2018-06-06 06:37] LABS: Basophils % 0.3 %; Eosinophils # 0.1 K/mcL (0.0-0.6); Eosinophils % 1.5 %; Hematocrit 34.2 % (35.3-44.9); Hemoglobin 10.3 g/dL (11.5-15.4); Immature Granulocytes % 2.6 % (0-4); Lymphocytes # 1.2 K/mcL (0.6-4.6); Lymphocytes % 16.1 %; Mean Corpuscular HGB Conc 30.1 g/dL (31.6-35.5); Mean Corpuscular Volume 79.5 fL (83.0-100.0); Mean Platelet Volume 10.1 fL (9.4-12.4); Monocytes # 0.6 K/mcL (0.0-1.3); Monocytes % 8.1 %; Neutrophils # 5.3 K/mcL (1.6-8.9); Platelet Count 279 K/mcL (140-400); Red Cell Distribution Width 15.2 % (11.5-14.5); Segmented Neutrophils % 71.4 %
[2018-06-06] MEDS: Insulin LISPRO 300 UNITS/3 ML VIAL SQ SCH ×7 (08:12→21:27)
[2018-06-06] MEDS: Insulin DETEMIR 100 UNIT/ML X5UNITS SQ SCH ×2 (08:13→21:29)
--- NOTE | 2018-06-06 11:09 | Podiatry Progress Note ---
Date of Encounter: 06/06/18 Time of Encounter: 10:20 - Assessment and Plan (1) Cellulitis Current Visit: Yes Status: Acute Assessment: -Erythema and warmth noted to right stump -Does not extend past demarcation line -Mild fluctuance noted -WBC 7.4 -ESR 98 -CRP 97 -HGB A1C 11.7 -Xray negative for OM -Healing wound noted to distal aspect of stump, scabbed area noted. -No active drainage noted, no streaking noted, no foul odor noted -Palpable popliteal artery -Blood cultures x 2 pending Plan: -Painted scabbed area with betadine. -Open to air Qualifiers: Site of cellulitis: other site Qualified Code(s): L03.818 - Cellulitis of other sites (2) BKA stump complication Current Visit: No Status: Acute -Erythema and warmth noted to right stump -Does not extend past demarcation line -Mild fluctuance noted -WBC 7.4 -ESR 98 -CRP 97 -HGB A1C 11.7 -Xray negative for OM -MRI with evidence of: 1. Large lobular peripherally enhancing fluid collection measuring approximately 5.8 x 3.1 x 3.8 cm in the soft tissues distal to the tibial stump compatible with an abscess. 2. Smaller separate 1 x 0.9 x 0.6 cm fluid collection in the soft tissues distal to the fibular stump also compatible with an abscess. 3. Mild bone marrow edema and mild decreased T1 signal in the distal aspect of the tibial stump compatible with early osteomyelitis versus noninfectious reactive osteitis. 4. Mild patellofemoral compartment degenerative changes and small effusion. -Healing wound noted to distal aspect of stump, scabbed area noted. -No active drainage noted, no streaking noted, no foul odor noted -Palpable popliteal artery -Blood cultures x 2 pending Plan: -Recommend Vascular consult for surgical recommendations, osteomyelitis and abscess -Painted scabbed area with betadine. -Open to air (3) Wound of left foot Current Visit: No Status: Acute Assessment: -Chronic Reyna stage 1 ulceration to left submetatarsal #1 -Does not probe to bone -Minimal serosanginous drainage noted -No erythema, no edema, no streaking, no foul odor -WBC 7.4, ESR 98, CRP 97 -Blood cultures pending x 2 Plan: Follow up in wound care with Dr. Lenz. Please schedule appointment prior to d/c. Subjective Interval history: Patient is alert and oriented x 3, no acute distress noted, resting in bed. Patient denies any chest pain, shortness of breath, or calf pain. Patient denies any fever, chills, nausea, vomiting, or diarrhea. Objective - Vital Signs Vital Signs: Vital Signs Temp Pulse Resp BP Pulse Ox 06/06/18 10:52 97.3 F L 75 15 104/58 94 06/06/18 07:05 98.0 F 77 15 132/69 93 06/06/18 03:59 98.2 F 76 18 109/57 93 06/05/18 19:55 98.0 F 79 16 120/66 94 06/05/18 15:00 97.3 F L 81 16 115/52 94 Intake and Output 06/05/18 06/06/18 06/06/18 23:59 07:59 15:59 Intake Total 250 / 250 200 / 200 490 / 490 Output Total 400 / 400 Balance 250 / 250 -200 / -200 490 / 490 Intake: IV Fluids 250 / 250 200 / 200 250 / 250 Zosyn 3.375 GM In 0.9 % Sodium 200 / 200 Chloride (Mini-Bag +) 100 ML @ 25 mls/hr IVPB Q8HR [facility] Rx#: [id number] Vancocin 1,250 MG In 0.9 % 250 / 250 250 / 250 Sodium Chloride 250 ML @ 167 mls/hr IVPB Q12H J[facility] Rx#: [id number] Oral 240 / 240 Output: Urine 400 / 400 Other: Meal Breakfast Percent of Meal Consumed 100% Stool Size Small Stool Consistency loose liquid Stool Color Brown # Voids 2 Blood Glucose* 302 240 - Exam Exam: Constitutional: Alert and oriented x 3, no acute distress noted, well nourished. Vascular: 2/4 right popliteal artery, 1/4 PT/DP LLE, cap refill less than 3 seconds to all digits, skin temperature warm from toes to tibia, Rt BKA warm to touch. Neurologic: Diminished sensation to touch, normal plantar response, abormal position sense dorsiflexion/plantar flexion Dermatologic: Reyna grade 1 ulcer left submetatarsal #1, healing wound distal stump right BKA, minimal erythema noted to right stump, minimal fluctuance noted to stump Musculoskeletal: 3/5 muscle strength LLE. - Lab Result Diagrams: 06/06/18 06:05 06/03/18 06:22 Labs: Abnormal lab results Hgb 10.3 g/dL (11.5-15.4) L 06/06/18 06:05 Hct 34.2 % (35.3-44.9) L 06/06/18 06:05 MCV 79.5 fL (83.0-100.0) L 06/06/18 06:05 MCH 24.0 pg (28.0-33.3) L 06/06/18 06:05 MCHC 30.1 g/dL (31.6-35.5) L 06/06/18 06:05 RDW 15.2 % (11.5-14.5) H 06/06/18 06:05 ESR 98 mm/hr (0-15) H 06/04/18 12:38 Creatinine 0.54 mg/dL (0.60-1.20) L 06/03/18 06:22 Glucose 292 mg/dL (70-105) H 06/03/18 06:22 POC Glucose 240 mg/dL (70-99) H 06/06/18 07:01 Hemoglobin A1c 11.7 % (-5.6) H 06/02/18 22:15 Calcium 8.5 mg/dL (8.6-10.3) L 06/03/18 06:22 AST 6 Units/L (13-39) L 06/03/18 06:22 ALT 6 Units/L (7-52) L 06/03/18 06:22 Alkaline Phosphatase 106 Units/L (34-104) H 06/03/18 06:22 C-Reactive Protein 97 mg/L (Less than 10) H 06/04/18 12:38 Serum Total Protein 6.3 g/dL (6.4-8.9) L 06/03/18 06:22 Albumin 3.2 g/dL (3.5-5.7) L 06/03/18 06:22 Albumin/Globulin Ratio 1.0 (1.1-2.2) L 06/03/18 06:22 Vancomycin Trough 12 mcg/mL (5-10) H 06/05/18 19:56 Consult Discharge Plan - Plan Additional Instructions: Follow up in wound care with Dr. Lenz next week. Please make appointment prior to d/c Referrals: Almas Ac DO [Primary Care Provider] -
--- NOTE | 2018-06-06 11:26 | Infectious Disease Consult ---
Date of Encounter: 06/06/18 Time of Encounter: 11:23 Assessment and Plan (1) Abscess of right lower extremity Status: Acute Assessment and plan: Location: Right BKA stump. Causative organism: Unclear. MRI of the right stump shows a large globular peripherally enhancing fluid collection measuring approximately 5.8 x 3.1 x 3.8 cm in the soft tissues distal to the tibial stump compatible with an abscess as well as a smaller separate 1 x 0.9 x 0.6 and an air-fluid collection soft tissues distal to the fibular stump also compatible with an abscess. Likely secondary to chronic nonhealing ulceration. ESR elevated at 120 with a CRP of 233. Improved since being on IV antibiotics. Podiatry consult and following. Await further recommendations. Currently on vancomycin and Zosyn. Recommendations: Await blood cultures to finalize. Await further recommendations from the podiatry team. Wound care and dressing changes per the podiatry team. Continue vancomycin IV. Pharmacy to dose. Goal trough approximately 15. Continue Zosyn 3.375 g IV every 8 hours. Duration of treatment depends on the clinical picture. Monitor renal function for drug toxicity and dose adjust antibiotics. (2) Osteomyelitis Status: Suspected Assessment and plan: Suspected. Location: Right tibial stump. Reactive osteitis vs. early OM. ESR and CRP very elevated. High index of suspicion for OM. Await further surgical recommendations from the Podiatry team. Qualifiers: Osteomyelitis type: chronic multifocal Osteomyelitis location: foot Laterality: right Qualified Code(s): M86.371 - Chronic multifocal osteomyelitis, right ankle and foot (3) Cellulitis Status: Acute Assessment and plan: Location: Right stump. Causative organism: Unclear. No wound cultures have been obtained. Clinically improved per patient report. Currently on IV vancomycin and Zosyn. Qualifiers: Site of cellulitis: other site Qualified Code(s): L03.818 - Cellulitis of other sites (4) Hemangioma of liver Status: Chronic (5) Insulin dependent diabetes mellitus Status: Chronic Assessment and plan: Hemoglobin A1c 11.7%. Recommend aggressive glucose monitoring and control to promote wound healing and prevent reinfection. Management per the primary team. 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 (7) Hypertension Status: Chronic Qualifiers: Hypertension type: essential hypertension Qualified Code(s): I10 - Essential (primary) hypertension (8) Depression Status: Acute Qualifiers: Depression Type: major depressive disorder Major depression recurrence: unspecified whether recurrent Major depression episode severity: unspecified Qualified Code(s): F32.9 - Major depressive disorder, single episode, unspecified Infectious Disease HPI - Data of Consult Patient: known to practice within the last 3 years Consult date: 06/06/18 Requesting Physician: Tim Quiñones MD Primary Care Provider: Almas Ac - Consult Narrative Reason for consult: Right stump infection History of present illness: Ms. Anthony Cook is a 57 year old female with a past medical history of diabetes, GERD, C. difficile, liver hemangioma, and right BKA. The patient was admitted to the hospital 06/02/18 for right stump infection. We are consulted 06/06/18 for further treatment recommendations for right stump infection. Briefly, the patient is a 57-year-old female with past medical history as stated above. The patient is known to the infectious disease service as we have been consulted on her case in the past. The patient presented to the ER on the day of admission with complaints of right leg swelling, erythema, and wound dehiscence that started about 2 days prior to admission. Upon arrival, the patient was afebrile. She is mildly tachycardic, but was otherwise hemodynamically stable. Laboratory studies revealed a normal white blood cell count and renal function. ESR was elevated at 120 with a CRP of 233. Her hemoglobin A1c was elevated 11.7%. A right tib-fib x-ray was positive for soft tissue swelling, but no osteomyelitis. Blood cultures were obtained 2 sets and are no growth to date. She was started. Clear on IV vancomycin and Zosyn and admitted to the hospital for further evaluation. Since admission, the patient has remained afebrile and hemodynamically stable. She was evaluated by podiatry who recommended close monitoring while on IV antibiotics. She had an MRI of the RLE 06/05/18 that showed a large globular peripherally enhancing fluid collection measuring approximately 5.8 x 3.1 x 3.8 cm in the soft tissues distal to the tibial stump compatible with an abscess. There is also a smaller separate 1 x 0.9 x 0.6 cm fluid collection in the soft t issues distal to the fibular stump also compatible with an abscess. There is mild bone marrow edema and mild decreased T1 signal in the distal aspect of the tibial stomach compatible with early osteomyelitis versus noninfectious reactive osteitis. Currently, the patient is on vancomycin and Zosyn. We have been asked to evaluate and make further recommendations. During my exam today, the patient states that about a month ago she developed a blister to the distal aspect of her right stump secondary to a poorly fitting prosthetic. She had been following with Dr. Lenz in the wound clinic and the wound was improving until last week when she developed redness, swelling, warmth, and tenderness. She reports some bloody drainage from the wound, but no pus. Denies any fevers or chills or rigors. Denies headache or neck pain. Denies congestion, earache, or sore throat. Denies nausea, vomiting, diarrhea, or constipation. Denies abdominal pain or urinary complaints. Denies any oral thrush or new skin lesions. She states that she has not been on any antibiotics prior to admission. The patient lives at home with her . She does not work outside the home. She denies any tobacco, alcohol, or illicit drug use. She denies any recent travel. She does have 2 dogs at home, but denies any bites or scratches. She denies any chronic infectious diseases. CC: Tim Quiñones MD Past Med Surg Social Fam HX - Past Medical History Attestation: Yes The following information was validated with the patient. Source: patient, old records reviewed, nursing notes reviewed Medical history: diabetes, GERD Additional medical history: hemangioma on liver. Psychiatric history: anxiety, depression - Past Surgical History Surgical History: cholecystectomy, other Additional surgical history: Right BKA - Social History Smoking Status: Former smoker Smokeless Tobacco Status: No Alcohol use: none Drug use: none Occupational status: disabled Current living situation: Home, With Family Activity Level: Independent ambulation Recent Out of Country Travel Within the Last 8 Weeks: No Exposure or Possible Exposure to Illness During Travel: No - Family History Father Living Status: Hx Family Cardiac Disorders: Yes Hx Family Endocrine Disorder: Yes Mother Living Status: Hx Family Cardiac Disorders: Yes Hx Family Respiratory Disorders: No Hx Family Cancer: Yes Hx Family GI Disorders: No Hx Family Endocrine Disorder: No Hx Family Neuromuscular Disorders: No Hx Family Neurologic Disorders: No Hx Family HEENT Disorders: No Hx Family Autoimmune Disorders: No Infectious Disease-CN:Meds RX: Sertraline [Zoloft] 100 mg PO DAILY 10/15/14 [History] RX: Omeprazole [PriLOSEC] 20 mg PO DAILY 06/19/16 [History] RX: OxyCODONE/APAP 5/325 [Percocet 5/325 MG] 1 tab PO Q8H PRN 08/03/17 [History] Insulin Aspart Prot/Insuln Asp [Novolog Mix 70-30 Vial] 80 unit SQ BID 06/04/18 [History] Allergy/AdvReac Type Severity Reaction Status Date / Time No Known Allergies Allergy Verified 06/04/18 09:52 All systems: reviewed and no additional remarkable complaints except as stated Exam - Constitutional Vitals: Temp Pulse Resp BP Pulse Ox 97.3 F L 75 15 104/58 94 06/06/18 10:52 06/06/18 10:52 06/06/18 10:52 06/06/18 10:52 06/06/18 10:52 General appearance: average body habitus, cooperative, no acute distress - Head Head exam: Present: atraumatic, normal inspection, normocephalic - Eye Eye exam: Present: EOMI, normal appearance, PERRL Pupils: Present: normal accommodation - ENT ENT exam: Present: mucous membranes moist - Neck Neck exam: Present: normal inspection - Respiratory Respiratory exam: Present: CTAB. Absent: rales, respiratory distress, rhonchi, wheezes - Cardiovascular Cardiovascular exam: Present: RRR, +S1, +S2 - GI/Abdominal GI/Abdominal exam: Present: distended, normal bowel sounds, soft. Absent: tenderness - Extremities Exam Extremities exam: Absent: joint swelling, normal inspection (Right BKA stump with scabbed lesion noted to the distal aspect of the stump.), pedal edema, tenderness Additional comments: Discoloration noted to the right distal stump, receded from previous skin markings. - Neurological Exam Neurological exam: Present: alert, oriented X3, no focal deficits - Psychiatric Psychiatric exam: Present: normal affect, normal mood - Skin Skin exam: Present: dry, intact, normal color, warm Infectious Disease CN: Results - Labs CBC & Chem 7: 06/08/18 05:19 06/08/18 05:19 Cultures: Cultures 06/02/18 22:15 Blood Culture - Preliminary Peripheral Venipuncture Culture is incubating and being continuously monitored for growth. Final report to follow. 06/02/18 22:10 Blood Culture - Preliminary Peripheral Venipuncture Culture is incubating and being continuously monitored for growth. Final report to follow. Consult Discharge Plan - Plan Additional Instructions: Follow up in wound care with Dr. Lenz next week. Please make appointment prior to d/c Referrals: Almas Ac DO [Primary Care Provider] - Florentin Keating MD [Partnered Physician] - - Attending Attestation I have personally performed a face to face evaluation on this patient. I have reviewed and agree with the care plan. History and Exam by me shows: This is an addendum to original report dictated by Kiana Carlos CNP. Please refer to Kiana's note for full details. Patient is a 57-year-old woman who has seen by us in the past who has a right BKA stump apparently had trauma to her BKA stump and initially had a little "bubble" that is starting getting red and swollen. Patient also was feeling nauseated and had low-grade fever. Patient came to the emergency department for evaluation. Since admission patient was noted to have abscess of the right lowe r extremity and questionable osteomyelitis. We were asked to evaluate the patient and make further recommendations. Assessment and plan: 1.Abscess of right lower extremity - 5.8 x 3.1 x 3.8 cm . Causative organism not clear 2.Osteomyelitis 3.Insulin-dependent diabetes mellitus 4.Hypertension 5.Depression Recommendations: I did speak with Dr. Butler and recommended that they consult surgery. Dr. Lenz is on the case but he is just there for wound care. I did also call Dr. Tobar and he is aware that the patient was noted. At this point continue broad-spectrum antibiotics. Helping for prompt I&D and sent Intra-Op cultures for Gram stain, routine and anaerobic cultures. Duration of treatment depends on the clinical picture. Check baseline inflammatory markers.
--- NOTE | 2018-06-06 17:20 | Internal Med Progress Note ---
<Susana Flores - Last Filed: 06/06/18 17:42> Hospitalist Progress Note - Encounter Date of Encounter: 06/06/18 Time of Encounter: 08:30 - Subjective Interval History: Ms. Cruz was seen at bedside this morning. Her vitals were reviewed and she remained afebrile and normotensive overnight. She reported increased pain in her right lower stump site. She denied fever, chills, nausea, emesis, shortness of breath or chest pain. - Exam Vitals: Temp Pulse Resp BP Pulse Ox 97.4 F L 80 15 105/66 91 06/06/18 13:50 06/06/18 13:50 06/06/18 13:50 06/06/18 13:50 06/06/18 13:50 Exam: Gen: Vitals noted. No acute distress. Appears comfortable. Neck: Trachea midline; supple Cardiac: RRR, no murmur, +S1/S2. No JVD noted. Pulmonary: CTA bilaterally, no wheezes, rales or rhonchi, equal chest expansion Abdomen: soft, nontender, no guarding. 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 Psych: Appropriate mood and behavior. A&Ox3 - Assessment and Plan (1) Cellulitis Current Visit: Yes Status: Acute Assessment and Plan: Presented with right edema and pain of the right stump. Remained afebrile and normotensive overnight. She follows with podiatry on a regular basis due to worsening of her symptoms she presented to the ED 2 days ago. Podiatry has been consulted and recommending medical management. Her CRP was elevated at 233 on 9 repeat CRP on 06/04/18 was 97. She had an x-ray of the right lower leg which did not show findings of osteomyelitis. Her ESR was 120 at presentation repeat was 98 after 2 days of antibiotic. -Continue vancomycin day 4 and Zosyn day 4; duration of treatment depends on clinical picture. -Continue home Percocet for pain control -MRI of the right leg shows abscess formation at the tibial and fibular region as well as concern for osteomyelitis -Vascular surgery consulted and may require further amputation -Infectious disease consulted for antibiotic duration her condition (2) Diabetic ulcer of left foot Current Visit: No Status: Chronic Assessment and Plan: History of left plantar aspect ulcer. There was some blood noted under the dressing. Had debridement of the ulcer yesterday Had Betadine applied podiatry Podiatry is consulted and getting regular dressing changes. Continue to stabilize glucose (3) IDDM (insulin dependent diabetes mellitus) Current Visit: Yes Status: Chronic Assessment and Plan: History of uncontrolled diabetes is on insulin at home. At presentation her hemoglobin A1c was noted to be 11.7. Local is continues to remain elevated, this morning was 179 and this afternoon is 233. -Was increased yesterday to 30 unit of detemir twice a day, also has 6 units 3 times a day with meals with medium corrective scale ordered -We will increase to 35 twice a day detemir starting tonight -Continue sliding-scale lispro -We will continue to monitor glucose -Continue diabetic diet (4) GERD (gastroesophageal reflux disease) Current Visit: Yes Status: Acute Assessment and Plan: Continue omeprazole (5) Depression Current Visit: Yes Status: Acute Assessment and Plan: Continue home sertraline (6) Abscess Current Visit: Yes Status: Acute Assessment and Plan: Presented with right stump erythema and tenderness. MRI of the right leg showed large lobular fluid collection 5.8 x 3.1 x 3.8 cm in the soft tissues distal to the tibial stump as well as smaller fluid collection distal to the fibular stump 1 x 0.9 x 0.6 cm fluid collection in the soft tissues. Currently on vancomycin and Zosyn for the past 4 days Blood cultures are still pending -Infectious disease consulted, any recommendations appreciated -Vascular surgery recommendations for these abscess development; may require [id number] amputation depending on involvement DVT Prophylaxis: Heparin subcutaneous every 12 hours - Time Spent with Patient Total time spent is greater than 50% in coordination of care (as documented) at patient's floor/unit and/or counseling patient: Internal Medicine: Result - Labs CBC & Chem 7: 06/06/18 06:05 06/03/18 06:22 Labs: Short CBC 06/06/18 Range/Units 06:05 WBC 7.4 (4.3-11.1) K/mcL Hgb 10.3 L (11.5-15.4) g/dL Hct 34.2 L (35.3-44.9) % Plt Count 279 (140-400) K/mcL Neutrophils # 5.3 (1.6-8.9) K/mcL - Impressions Impressions Lower Extremity MRI 06/05/18 16:37 IMPRESSION: 1. Large lobular peripherally enhancing fluid collection measuring approximately 5.8 x 3.1 x 3.8 cm in the soft tissues distal to the tibial stump compatible with an abscess. 2. Smaller separate 1 x 0.9 x 0.6 cm fluid collection in the soft tissues distal to the fibular stump also compatible with an abscess. 3. Mild bone marrow edema and mild decreased T1 signal in the distal aspect of the tibial stump compatible with early osteomyelitis versus noninfectious reactive osteitis. 4. Mild patellofemoral compartment degenerative changes and small effusion. D/ / Jam Brunner MD / Jam Brunner MD Interpreting Provider: Jam Brunner MD Consult Discharge Plan - Plan Additional Instructions: Follow up in wound care with Dr. Lenz next week. Please make appointment prior to d/c Referrals: Almas Ac DO [Primary Care Provider] - <Reta Teixeira - Last Filed: 06/06/18 18:00> Hospitalist Progress Note - Encounter Date of Encounter: 06/06/18 - Exam Vitals: Temp Pulse Resp BP Pulse Ox 97.4 F L 80 15 105/66 91 06/06/18 13:50 06/06/18 13:50 06/06/18 13:50 06/06/18 13:50 06/06/18 13:50 - Assessment and Plan (1) Diabetic ulcer of left foot Current Visit: No Status: Chronic (2) Cellulitis Current Visit: Yes Status: Acute (3) IDDM (insulin dependent diabetes mellitus) Current Visit: Yes Status: Chronic (4) GERD (gastroesophageal reflux disease) Current Visit: Yes Status: Acute (5) Depression Current Visit: Yes Status: Acute (6) Abscess Current Visit: Yes Status: Acute - Time Spent with Patient Total time spent is greater than 50% in coordination of care (as documented) at patient's floor/unit and/or counseling patient: Internal Medicine: Result - Labs CBC & Chem 7: 06/06/18 06:05 06/03/18 06:22 Labs: Short CBC 06/06/18 Range/Units 06:05 WBC 7.4 (4.3-11.1) K/mcL Hgb 10.3 L (11.5-15.4) g/dL Hct 34.2 L (35.3-44.9) % Plt Count 279 (140-400) K/mcL Neutrophils # 5.3 (1.6-8.9) K/mcL - Impressions Impressions Lower Extremity MRI 06/05/18 16:37 IMPRESSION: 1. Large lobular peripherally enhancing fluid collection measuring approximately 5.8 x 3.1 x 3.8 cm in the soft tissues distal to the tibial stump compatible with an abscess. 2. Smaller separate 1 x 0.9 x 0.6 cm fluid collection in the soft tissues distal to the fibular stump also compatible with an abscess. 3. Mild bone marrow edema and mild decreased T1 signal in the distal aspect of the tibial stump compatible with early osteomyelitis versus noninfectious reactive osteitis. 4. Mild patellofemoral compartment degenerative changes and small effusion. D/ / Jam Brunner MD / Jam Brunner MD Interpreting Provider: Jam Brunner MD - Attending Attestation I examined this patient and my medical decision-making was reviewed with the Resident Physician. I agree with the documented findings, disposition and treatment plan as described except to the extent set forth below. <Susana Flores - Last Filed: 06/06/18 17:42> (1) Cellulitis Qualifiers: Site of cellulitis: other site Qualified Code(s): L03.818 - Cellulitis of other sites (2) Diabetic ulcer of left foot Qualifiers: Diabetic foot ulcer location: unspecified part of foot Diabetes mellitus type: type 2 Non-pressure ulcer stage: limited to breakdown of skin Qualified Code(s): E11.621 - Type 2 diabetes mellitus with foot ulcer; L97.521 - Non-p ressure chronic ulcer of other part of left foot limited to breakdown of skin (4) GERD (gastroesophageal reflux disease) Qualifiers: Esophagitis presence: esophagitis presence not specified Qualified Code(s): K21.9 - Gastro-esophageal reflux disease without esophagitis (5) Depression Qualifiers: Depression Type: major depressive disorder Major depression recurrence: unspecified whether recurrent Major depression episode severity: unspecified <Reta Teixeira - Last Filed: 06/06/18 18:00> (1) Diabetic ulcer of left foot Qualifiers: Diabetic foot ulcer location: unspecified part of foot Diabetes mellitus type: type 2 Non-pressure ulcer stage: limited to breakdown of skin Qualified Code(s): E11.621 - Type 2 diabetes mellitus with foot ulcer; L97.521 - Non- pressure chronic ulcer of other part of left foot limited to breakdown of skin (2) Cellulitis Qualifiers: Site of cellulitis: other site Qualified Code(s): L03.818 - Cellulitis of other sites (4) GERD (gastroesophageal reflux disease) Qualifiers: Esophagitis presence: esophagitis presence not specified Qualified Code(s): K21.9 - Gastro-esophageal reflux disease without esophagitis (5) Depression Qualifiers: Depression Type: major depressive disorder Major depression recurrence: unspecified whether recurrent Major depression episode severity: unspecified
[2018-06-06] MEDS: *HR* OxyCODONE/APAP 5/325 TABLET PO PRN (20:06)
[2018-06-07] MEDS: Piperacillin/Tazobactam 3.375 GM in 0.9 % Sodium Chloride Mini Bag 100 ML IVPB SCH ×3 (00:31→16:57)
[2018-06-07] MEDS: *HR* Heparin 5,000 UNIT/ML VIAL SQ SCH ×2 (05:50→16:54)
[2018-06-07 06:34] LABS: Basophils % 0.2 %; Eosinophils # 0.1 K/mcL (0.0-0.6); Eosinophils % 1.5 %; Hematocrit 32.4 % (35.3-44.9); Hemoglobin 9.9 g/dL (11.5-15.4); Immature Granulocytes % 1.7 % (0-4); Lymphocytes # 1.4 K/mcL (0.6-4.6); Lymphocytes % 17.2 %; Mean Corpuscular HGB Conc 30.6 g/dL (31.6-35.5); Mean Corpuscular Hemoglobin 24.3 pg (28.0-33.3); Mean Corpuscular Volume 79.6 fL (83.0-100.0); Mean Platelet Volume 10.3 fL (9.4-12.4); Monocytes # 0.8 K/mcL (0.0-1.3); Monocytes % 9.4 %; Neutrophils # 5.6 K/mcL (1.6-8.9); Platelet Count 276 K/mcL (140-400); Red Blood Count 4.07 M/mcL (3.82-4.97); Red Cell Distribution Width 15.3 % (11.5-14.5)
[2018-06-07 06:53] LABS: BUN/Creatinine Ratio 19 (6-26); Blood Urea Nitrogen 8 mg/dL (6-20); Calcium 8.5 mg/dL (8.6-10.3); Carbon Dioxide 28 mEq/L (23-29); Chloride 106 mEq/L (98-107); Glucose 96 mg/dL (70-105); Osmolality,Calculated 290 (280-300); Potassium 3.6 mEq/L (3.5-5.1); Sodium 141 mEq/L (136-145); eGFR For Non-African Americans > 60 (> 60)
[2018-06-07] MEDS: Insulin LISPRO 300 UNITS/3 ML VIAL SQ SCH ×6 (08:12→22:51)
[2018-06-07] MEDS: Insulin DETEMIR 100 UNIT/ML X5UNITS SQ SCH (09:27)
--- NOTE | 2018-06-07 10:15 | Internal Med Progress Note ---
<Susana Flores - Last Filed: 06/07/18 15:05> Hospitalist Progress Note - Encounter Date of Encounter: 06/07/18 Time of Encounter: 09:15 - Subjective Interval History: Ms. Cruz was seen at bedside this morning. Her mood appeared labile given she will require surgical intervention later today. She is concerned about her mobility. She currently remains asymptomatic. She denies fever, chills, nausea, emesis, shortness of breath or chest pain. - Exam Vitals: Temp Pulse Resp BP Pulse Ox 99.0 F 92 16 127/63 91 06/07/18 07:46 06/07/18 07:46 06/07/18 07:46 06/07/18 07:46 06/07/18 07:46 Exam: Gen: Vitals noted. No acute distress. Appears comfortable. Mood labile given intervention today Neck: Trachea midline; supple Cardiac: RRR, no murmur, +S1/S2. No JVD noted. Pulmonary: CTA bilaterally, no wheezes, rales or rhonchi, equal chest expansion Abdomen: soft, nontender, no guarding. 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 Psych: Appropriate mood and behavior. A&Ox3 - Assessment and Plan (1) Cellulitis Current Visit: Yes Status: Acute Assessment and Plan: Presented with right edema and pain of the right stump. Remained afebrile and normotensive overnight. She follows with podiatry on a regular basis due to worsening of her symptoms she presented to the ED 2 days ago. Podiatry has been consulted and recommending medical management. Her CRP was elevated at 233 on 9 repeat CRP on 06/04/18 was 97. She had an x-ray of the right lower leg which did not show findings of o steomyelitis. Her ESR was 120 at presentation repeat was 98 after 2 days of antibiotic. -Continue vancomycin day 5 and Zosyn day 5; duration of treatment depends on clinical picture. -Continue home Percocet for pain control -MRI of the right leg shows abscess formation at the tibial and fibular region as well as concern for osteomyelitis -Vascular surgery consulted and may require further amputation -Infectious disease consulted for antibiotic duration her condition (2) Diabetic ulcer of left foot Current Visit: No Status: Chronic Assessment and Plan: History of left plantar aspect ulcer. There was some blood noted under the dressing. Podiatry is consult has daily dressing changes Continue to stabilize glucose (3) IDDM (insulin dependent diabetes mellitus) Current Visit: Yes Status: Chronic Assessment and Plan: History of uncontrolled diabetes is on insulin at home. At presentation her hemoglobin A1c was noted to be 11.7. Because this morning improved significantly and is noted to be 115 -Chandan decreased to 20 units and is currently on hold as she is nothing by mouth, -6 units 3 times a day with meals is currently on hold given she is undergoing surgical intervention later today -Continue medium corrective insulin scale ordered -We will continue to monitor glucose -Continue diabetic diet (4) GERD (gastroesophageal reflux disease) Current Visit: Yes Status: Acute Assessment and Plan: Continue omeprazole (5) Depression Current Visit: Yes Status: Acute Assessment and Plan: Continue home sertraline (6) Abscess Current Visit: Yes Status: Acute Assessment and Plan: Presented with right stump erythema and tenderness. MRI of the right leg showed large lobular fluid collection 5.8 x 3.1 x 3.8 cm in the soft tissues distal to the tibial stump as well as smaller fluid collection distal to the fibular stump 1 x 0.9 x 0.6 cm fluid collection in the soft tissues. Currently on vancomycin and Zosyn for the past 5 days Blood cultures are still pending -Infectious disease consulted, any recommendations appreciated -Surgical intervention for incision and drainage by Dr. Keating later today DVT Prophylaxis: Heparin subcutaneous every 12 hours - Time Spent with Patient Total time spent is greater than 50% in coordination of care (as documented) at patient's floor/unit and/or counseling patient: Internal Medicine: Result - Labs CBC & Chem 7: 06/07/18 06:08 06/07/18 06:08 Labs: Short CBC 06/07/18 Range/Units 06:08 WBC 8.1 (4.3-11.1) K/mcL Hgb 9.9 L (11.5-15.4) g/dL Hct 32.4 L (35.3-44.9) % Plt Count 276 (140-400) K/mcL Neutrophils # 5.6 (1.6-8.9) K/mcL BMP 06/07/18 06:08 Sodium 141 Potassium 3.6 Chloride 106 Carbon Dioxide 28 BUN 8 Creatinine 0.42 L Glucose 96 Calcium 8.5 L Consult Discharge Plan - Plan Additional Instructions: Follow up in wound care with Dr. Lenz next week. Please make appointment prior to d/c Referrals: Almas Ac DO [Primary Care Provider] - <IshakevinRocky landaverdeul Nayelibabak - Last Filed: 06/07/18 17:33> Hospitalist Progress Note - Encounter Date of Encounter: 06/07/18 - Exam Vitals: Temp Pulse Resp BP Pulse Ox 97.7 F 75 17 116/58 92 06/07/18 16:57 06/07/18 16:57 06/07/18 16:57 06/07/18 16:57 06/07/18 16:57 - Assessment and Plan (1) Diabetic ulcer of left foot Current Visit: No Status: Chronic (2) Cellulitis Current Visit: Yes Status: Acute (3) IDDM (insulin dependent diabetes mellitus) Current Visit: Yes Status: Chronic (4) GERD (gastroesophageal reflux disease) Current Visit: Yes Status: Acute (5) Depression Current Visit: Yes Status: Acute (6) Abscess Current Visit: Yes Status: Acute - Time Spent with Patient Total time spent is greater than 50% in coordination of care (as documented) at patient's floor/unit and/or counseling patient: Internal Medicine: Result - Labs CBC & Chem 7: 06/07/18 06:08 06/07/18 06:08 Labs: Short CBC 06/07/18 Range/Units 06:08 WBC 8.1 (4.3-11.1) K/mcL Hgb 9.9 L (11.5-15.4) g/dL Hct 32.4 L (35.3-44.9) % Plt Count 276 (140-400) K/mcL Neutrophils # 5.6 (1.6-8.9) K/mcL BMP 06/07/18 06:08 Sodium 141 Potassium 3.6 Chloride 106 Carbon Dioxide 28 BUN 8 Creatinine 0.42 L Glucose 96 Calcium 8.5 L - Attending Attestation I examined this patient and my medical decision-making was reviewed with the Resident Physician. I agree with the documented findings, disposition and treatment plan as described except to the extent set forth below. in addition, patient is concerned she may not be able to take care of herself at home right now if she gets an I&D and with infection healing process. PT/OT consulted. ___ <Susana Flores - Last Filed: 06/07/18 15:05> (1) Cellulitis Qualifiers: Site of cellulitis: other site Qualified Code(s): L03.818 - Cellulitis of other sites (2) Diabetic ulcer of left foot Qualifiers: Diabetic foot ulcer location: unspecified part of foot Diabetes mellitus type: type 2 Non-pressure ulcer stage: limited to breakdown of skin Qualified Code(s): E11.621 - Type 2 diabetes mellitus with foot ulcer; L97.521 - Non- pressure chronic ulcer of other part of left foot limited to breakdown of skin (4) GERD (gastroesophageal reflux disease) Qualifiers: Esophagitis presence: esophagitis presence not specified Qualified Code(s): K21.9 - Gastro-esophageal reflux disease without esophagitis (5) Depression Qualifiers: Depression Type: major depressive disorder Major depression recurrence: unspecified whether recurrent Major depression episode severity: unspecified <Reta Teixeira - Last Filed: 06/07/18 17:33> (1) Diabetic ulcer of left foot Qualifiers: Diabetic foot ulcer location: unspecified part of foot Diabetes mellitus type: type 2 Non-pressure ulcer stage: limited to breakdown of skin Qualified Code(s): E11.621 - Type 2 diabetes mellitus with foot ulcer; L97.521 - Non- pressure chronic ulcer of other part of left foot limited to breakdown of skin (2) Cellulitis Qualifiers: Site of cellulitis: other site Qualified Code(s): L03.818 - Cellulitis of other sites (4) GERD (gastroesophageal reflux disease) Qualifiers: Esophagitis presence: esophagitis presence not specified Qualified Code(s): K21.9 - Gastro-esophageal reflux disease without esophagitis (5) Depression Qualifiers: Depression Type: major depressive disorder Major depression recurrence: unspecified whether recurrent Major depression episode severity: unspecified Qualified Code(s): F32.9 - Major depressive disorder, single episode, unspecified
--- NOTE | 2018-06-07 11:43 | Podiatry Progress Note ---
Date of Encounter: 06/07/18 Time of Encounter: 11:00 - Assessment and Plan (1) Cellulitis Current Visit: Yes Status: Acute Assessment: -Erythema and warmth noted to right stump -Does not extend past demarcation line -Mild fluctuance noted -WBC 8.1 -ESR 98 -CRP 97 -HGB A1C 11.7 -Xray negative for OM -MRI with evidence of: 1. Large lobular peripherally enhancing fluid collection measuring approximately 5.8 x 3.1 x 3.8 cm in the soft tissues distal to the tibial stump compatible with an abscess. 2. Smaller separate 1 x 0.9 x 0.6 cm fluid collection in the soft tissues distal to the fibular stump also compatible with an abscess. 3. Mild bone marrow edema and mild decreased T1 signal in the distal aspect of the tibial stump compatible with early osteomyelitis versus noninfectious reactive osteitis. 4. Mild patellofemoral compartment degenerative changes and small effusion. -Healing wound noted to distal aspect of stump, scabbed area noted. -No active drainage noted, no streaking noted, no foul odor noted -Palpable popliteal artery -Blood cultures x 2 pending Plan: -Vascular consulted and plan for patient to have I&D today by Dr. Keating Qualifiers: Site of cellulitis: other site Qualified Code(s): L03.818 - Cellulitis of other sites (2) BKA stump complication Current Visit: No Status: Acute -Erythema and warmth noted to right stump -Does not extend past demarcation line -Mild fluctuance noted -WBC 8.1 -ESR 98 -CRP 97 -HGB A1C 11.7 -Xray negative for OM -MRI with evidence of: 1. Large lobular peripherally enhancing fluid collection measuring approximately 5.8 x 3.1 x 3.8 cm in the soft tissues distal to the tibial stump compatible with an abscess. 2. Smaller separate 1 x 0.9 x 0.6 cm fluid collection in the soft tissues distal to the fibular stump also compatible with an abscess. 3. Mild bone marrow edema and mild decreased T1 signal in the distal aspect of the tibial stump compatible with early osteomyelitis versus noninfectious reactive osteitis. 4. Mild patellofemoral compartment degenerative changes and small effusion. -Healing wound noted to distal aspect of stump, scabbed area noted. -No active drainage noted, no streaking noted, no foul odor noted -Palpable popliteal artery -Blood cultures x 2 pending Plan: -Vascular consulted and plan for patient to have I&D today by Dr. Keating (3) Wound of left foot Current Visit: No Status: Acute Assessment: -Chronic Reyna stage 1 ulceration to left submetatarsal #1 -Does not probe to bone -Minimal serosanginous drainage noted -No erythema, no edema, no streaking, no foul odor -WBC 8.1, ESR 98, CRP 97 -Blood cultures pending x 2 Plan: -Flushed with .9NS and pat dry -Painted with betadine and covered with adaptic, 4x4, and kerlix -Dressing change every other day -Wound care orders placed -Follow up in wound care with Dr. Lenz. Please schedule appointment prior to d/c. Subjective Interval history: Patient is alert and oriented x 3, no acute distress noted, resting in bed. Patient denies any chest pain, shortness of breath, or calf pain. Patient denies any fever, chills, nausea, vomiting, or diarrhea. Objective - Vital Signs Vital Signs: Vital Signs Temp Pulse Resp BP Pulse Ox 06/07/18 07:46 99.0 F 92 16 127/63 91 06/07/18 03:41 97.7 F 68 16 119/73 96 06/06/18 23:27 98.1 F 75 16 127/72 93 06/06/18 18:57 98.2 F 83 16 122/67 93 06/06/18 13:50 97.4 F L 80 15 105/66 91 Intake and Output 06/06/18 06/07/18 06/07/18 23:59 07:59 15:59 Intake Total 830 / 830 100 / 100 Output Total 400 / 400 Balance 430 / 430 100 / 100 Intake: IV Fluids 350 / 350 100 / 100 Zosyn 3.375 GM In 0.9 % Sodium 100 / 100 100 / 100 Chloride (Mini-Bag +) 100 ML @ 25 mls/hr IVPB Q8HR JULIEN Rx#: [id number] Vancocin 1,250 MG In 0.9 % 250 / 250 Sodium Chloride 250 ML @ 167 mls/hr IVPB Q12H JULIEN Rx#: [id number] Oral 480 / 480 Output: Urine 400 / 400 Other: Meal Dinner npo Percent of Meal Consumed 100% 0% Stool Size Small Stool Consistency loose Stool Color Brown # Bowel Movements 1 Weight 88 kg Blood Glucose* 188 115 Patient Weight 06/07/18 23:59 Weight 88 kg - Exam Exam: Constitutional: Alert and oriented x 3, no acute distress noted, well nourished. Vascular: 2/4 right popliteal artery, 1/4 PT/DP LLE, cap refill less than 3 seconds to all digits, skin temperature warm from toes to tibia, Rt BKA warm to touch. Neurologic: Diminished sensation to touch, normal plantar response, abnormal proprioception dorsiflexion/plantar flexion Dermatologic: Reyna grade 1 ulcer left submetatarsal #1, healing wound distal stump right BKA, minimal erythema noted to right stump, minimal fluctuance noted to stump Musculoskeletal: 3/5 muscle strength LLE. - Lab Result Diagrams: 06/07/18 06:08 06/07/18 06:08 Labs: Abnormal lab results Hgb 9.9 g/dL (11.5-15.4) L 06/07/18 06:08 Hct 32.4 % (35.3-44.9) L 06/07/18 06:08 MCV 79.6 fL (83.0-100.0) L 06/07/18 06:08 MCH 24.3 pg (28.0-33.3) L 06/07/18 06:08 MCHC 30.6 g/dL (31.6-35.5) L 06/07/18 06:08 RDW 15.3 % (11.5-14.5) H 06/07/18 06:08 ESR 98 mm/hr (0-15) H 06/04/18 12:38 Creatinine 0.42 mg/dL (0.60-1.20) L 06/07/18 06:08 POC Glucose 115 mg/dL (70-99) H 06/07/18 07:50 Hemoglobin A1c 11.7 % (-5.6) H 06/02/18 22:15 Calcium 8.5 mg/dL (8.6-10.3) L 06/07/18 06:08 AST 6 Units/L (13-39) L 06/03/18 06:22 ALT 6 Units/L (7-52) L 06/03/18 06:22 Alkaline Phosphatase 106 Units/L (34-104) H 06/03/18 06:22 C-Reactive Protein 97 mg/L (Less than 10) H 06/04/18 12:38 Serum Total Protein 6.3 g/dL (6.4-8.9) L 06/03/18 06:22 Albumin 3.2 g/dL (3.5-5.7) L 06/03/18 06:22 Albumin/Globulin Ratio 1.0 (1.1-2.2) L 06/03/18 06:22 Vancomycin Trough 15 mcg/mL (5-10) H 06/07/18 06:08 Consult Discharge Plan - Plan Additional Instructions: Follow up in wound care with Dr. Lenz next week. Please make appointment prior to d/c Referrals: Almas Ac DO [Primary Care Provider] -
--- NOTE | 2018-06-07 14:20 | Infectious Disease Progress No ---
Date of Encounter: 06/07/18 Time of Encounter: 10:00 - Assessment and Plan (1) Abscess of right lower extremity Current Visit: Yes Status: Acute Location: Right BKA stump. Causative organism: Unclear. MRI of the right stump shows a large globular peripherally enhancing fluid collection measuring approximately 5.8 x 3.1 x 3.8 cm in the soft tissues distal to the tibial stump compatible with an abscess as well as a smaller separate 1 x 0.9 x 0.6 and an air-fluid collection soft tissues distal to the fibular stump also compatible with an abscess. Likely secondary to chronic nonhealing ulceration. ESR elevated at 120 with a CRP of 233. Improved since being on IV antibiotics. Podiatry consult and following. Vascular surgery consult pending. Await recommendations. Currently on vancomycin and Zosyn. Recommendations: Await blood cultures to finalize. Await further recommendations from the podiatry and Vascular teams. If the patient is going to the OR today, please obtain cultures (aerobic, anaerobic, AFB, fungal). Wound care and dressing changes per the podiatry team. Continue vancomycin IV. Pharmacy to dose. Goal trough approximately 15. Continue Zosyn 3.375 g IV every 8 hours. Duration of treatment depends on the clinical picture. Monitor renal function for drug toxicity and dose adjust antibiotics. (2) Osteomyelitis Current Visit: No Status: Suspected Suspected. Location: Right tibial stump. Reactive osteitis vs. early OM. ESR and CRP very elevated. High index of suspicion for OM. Vascular surgery consulted. Await recommendations. Qualifiers: Osteomyelitis type: chronic multifocal Osteomyelitis location: foot Laterality: right Qualified Code(s): M86.371 - Chronic multifocal osteomyelitis, right ankle and foot (3) Cellulitis Current Visit: Yes Status: Acute Location: Right stump. Causative organism: Unclear. No wound cultures have been obtained. Clinically improved. Currently on IV vancomycin and Zosyn. Qualifiers: Site of cellulitis: other site Qualified Code(s): L03.818 - Cellulitis of other sites (4) Hemangioma of liver Current Visit: No Status: Chronic (5) Insulin dependent diabetes mellitus Current Visit: No Status: Chronic Hemoglobin A1c 11.7%. Recommend aggressive glucose monitoring and control to promote wound healing and prevent reinfection. Management per the primary team. 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 No acute events noted overnight. Patient states overall she feels okay. Denies any fevers or chills or rigors. Denies chest pain, shortness of breath, or cough. Denies nausea, vomiting, diarrhea, or constipation. Denies abdominal pain or urinary complaints. Denies any oral t hrush or new skin lesions. Denies any pain at the site of her infection. States she is going to surgery later today for an incision and debridement. Infect Dis PN-Objective Data - Labs CBC & Chem 7: 06/08/18 05:19 06/08/18 05:19 Labs: Laboratory Results - last 24 hr 06/06/18 06/06/18 06/07/18 16:10 19:41 06:08 WBC RBC Hgb Hct MCV MCH MCHC RDW Plt Count MPV Immature Gran % Seg Neutrophils % Lymphocytes % Monocytes % Eosinophils % Basophils % Neutrophils # Lymphocytes # Monocytes # Eosinophils # Basophils # Sodium Potassium Chloride Carbon Dioxide BUN Creatinine Est GFR ( Amer) Est GFR (Non-Af Amer) BUN/Creatinine Ratio Glucose POC Glucose 206 H 188 H Calculated Osmolality Calcium Vancomycin Trough 15 H 06/07/18 06/07/18 06/07/18 06:08 06:08 07:50 WBC 8.1 RBC 4.07 Hgb 9.9 L Hct 32.4 L MCV 79.6 L MCH 24.3 L MCHC 30.6 L RDW 15.3 H Plt Count 276 MPV 10.3 Immature Gran % 1.7 Seg Neutrophils % 70.0 Lymphocytes % 17.2 Monocytes % 9.4 Eosinophils % 1.5 Basophils % 0.2 Neutrophils # 5.6 Lymphocytes # 1.4 Monocytes # 0.8 Eosinophils # 0.1 Basophils # 0.0 Sodium 141 Potassium 3.6 Chloride 106 Carbon Dioxide 28 BUN 8 Creatinine 0.42 L Est GFR ( Amer) > 60 Est GFR (Non-Af Amer) > 60 BUN/Creatinine Ratio 19 Glucose 96 POC Glucose 115 H Calculated Osmolality 290 Calcium 8.5 L Vancomycin Trough 06/07/18 12:07 WBC RBC Hgb Hct MCV MCH MCHC RDW Plt Count MPV Immature Gran % Seg Neutrophils % Lymphocytes % Monocytes % Eosinophils % Basophils % Neutrophils # Lymphocytes # Monocytes # Eosinophils # Basophils # Sodium Potassium Chloride Carbon Dioxide BUN Creatinine Est GFR ( Amer) Est GFR (Non-Af Amer) BUN/Creatinine Ratio Glucose POC Glucose 117 H Calculated Osmolality Calcium Vancomycin Trough Cultures: Cultures 06/02/18 22:15 Blood Culture - Preliminary Peripheral Venipuncture Culture is incubating and being continuously monitored for growth. Final report to follow. 06/02/18 22:10 Blood Culture - Preliminary Peripheral Venipuncture Culture is incubating and being continuously mon itored for growth. Final report to follow. Exam - Constitutional Vitals: Temp Pulse Resp BP Pulse Ox 97.9 F 75 18 112/58 93 06/07/18 12:03 06/07/18 12:03 06/07/18 12:03 06/07/18 12:03 06/07/18 12:03 General appearance: average body habitus, cooperative, no acute distress - Head Head exam: Present: atraumatic, normal inspection, normocephalic - Eye Eye exam: Present: EOMI, normal appearance, PERRL Pupils: Present: normal accommodation - ENT ENT exam: Present: mucous membranes moist - Neck Neck exam: Present: normal inspection - Respiratory Respiratory exam: Present: CTAB. Absent: rales, respiratory distress, rhonchi, wheezes - Cardiovascular Cardiovascular exam: Present: RRR, +S1, +S2 - GI/Abdominal GI/Abdominal exam: Present: distended, normal bowel sounds, soft. Absent: tenderness - Extremities Exam Extremities exam: Absent: normal inspection (Right BKA stump with small scabbed lesion to the distal aspect. No surrounding erythema, warmth, or fluctuance noted. No drainage noted. Mild tenderness noted with palpation. Left foot dressing is clean, dry, and intact.) - Neurological Exam Neurological exam: Present: alert, oriented X3, no focal deficits - Psychiatric Psychiatric exam: Present: normal affect, normal mood - Skin Skin exam: Present: dry, intact, normal color, warm Consult Discharge Plan - Plan Additional Instructions: Follow up in wound care with Dr. Lenz next week. Please make appointment prior to d/c Referrals: Almas Ac DO [Primary Care Provider] - Florentin Keating MD [Partnered Physician] - - Attending Attestation I have personally performed a face to face evaluation on this patient. I have reviewed and agree with the care plan. History and Exam by me shows: Assessment and plan: 1.Abscess of right lower extremity - 5.8 x 3.1 x 3.8 cm . Causative organism not clear 2.Osteomyelitis 3.Insulin-dependent diabetes mellitus 4.Hypertension 5.Depression Recommendations: waiting to go to surgery later today. continue current antibiotics will follow up on patient post surgery
--- NOTE | 2018-06-07 17:03 | Vascular/Endovasc Consult Note ---
Date of Encounter: 06/07/18 Time of Encounter: 08:10 Assessment and Plan (1) IDDM (insulin dependent diabetes mellitus) Current Visit: Yes Status: Chronic Patient has long-standing diabetes. She is under medical management. (2) Abscess of right lower extremity Current Visit: Yes Status: Acute Patient has abnormal MRI suggestive S of the distal aspect of the right kcnrg-ath-vwxb amputation site. The area appears to be relatively loculated and so therefore I believe this is a clinical circumstances that may permit salvage of the qnrkd-pht-ipjh amputation Y I&D and then prolonged wound care. The alternative of course would be transitioned to an ybvyf-fqw-xtuf amputation which I would initially attempt to avoid. This was discussed in full with the patient. - History of Present Illness Consult date: 06/07/18 Consult reason: Suspected right gcnii-sld-esfm amputation abscess Chief complaint: Right amputation site pain History of present illness: Ms. Anthony Cook is a 57 year old female Who had undergone a right below the knee amputation in June 2016. She had a Charcot foot and nonhealing infection and wound. Patient did well following the operation. However she was admitted now because of pain and swelling in the right xzewf-gob-gcus amputation site. An MRI was performed which I reviewed personally which revealed 2 areas of what appears to be abscess formation. The larger abscess area is on the medial aspect of the hhocd-pmd-xksm amputation and the other is on the more lateral aspect. The patient is not septic. Because of the symptoms and the findings on the MRI vascular surgery was asked see the patient. Past Med Surg Social Fam HX - Past Medical History Medical history: diabetes, GERD Additional medical history: hemangioma on liver. Psychiatric history: anxiety, depression - Past Surgical History Surgical History: cholecystectomy, other Additional surgical history: Right BKA - Social History Smoking Status: Former smoker Smokeless Tobacco Status: No Alcohol use: none Drug use: none - Family History Mother Living Status: Hx Family Cardiac Disorders: Yes Hx Family Respiratory Disorders: No Hx Family Cancer: Yes Hx Family GI Disorders: No Hx Family Endocrine Disorder: No Hx Family Neuromuscular Disorders: No Hx Family Neurologic Disorders: No Hx Family HEENT Disorders: No Hx Family Autoimmune Disorders: No Father Living Status: Hx Family Cardiac Disorders: Yes Hx Family Endocrine Disorder: Yes Medications and Allergies Sertraline [Zoloft] 100 mg PO DAILY 10/15/14 [History] Omeprazole [PriLOSEC] 20 mg PO DAILY 06/19/16 [History] OxyCODONE/APAP 5/325 [Percocet 5/325 MG] 1 tab PO Q8H PRN 08/03/17 [History] Insulin Aspart Prot/Insuln Asp [Novolog Mix 70-30 Vial] 80 unit SQ BID 06/04/18 [History] Allergy/AdvReac Type Severity Reaction Status Date / Time No Known Allergies Allergy Verified 06/04/18 09:52 All Systems Review: The remainder of the systems were reviewed and are negative Exam General: Present: Conversant, No Apparent Distress HEENT: Present: Atraumatic, Normocephaly Neck: Absent: JVD Vascular: Present: Amputation(s) (Patient has an area of fluctuance on the distal medial aspect of the right below the knee amputation. This is not tender. There is increased warmth to this area. There is mild erythema. There is no streaking. There is no crepitus.) Skin: Present: No rashes noted on visualized skin Consult Discharge Plan - Plan Additional Instructions: Follow up in wound care with Dr. Lenz next week. Please make appointment prior to d/c Referrals: Almas Ac DO [Primary Care Provider] -
--- NOTE | 2018-06-07 18:14 | Anesthesia Evaluation PreOp ---
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) Other Medical History: Hepatic (hemangioma liver), Diabetes Type I, GERD Anesthesia History: Problems (nausea) Alcohol Use: none Drug use: none Medications and Allergies Sertraline [Zoloft] 100 mg PO DAILY 10/15/14 [History] Omeprazole [PriLOSEC] 20 mg PO DAILY 06/19/16 [History] OxyCODONE/APAP 5/325 [Percocet 5/325 MG] 1 tab PO Q8H PRN 08/03/17 [History] Insulin Aspart Prot/Insuln Asp [Novolog Mix 70-30 Vial] 80 unit SQ BID 06/04/18 [History] Allergy/AdvReac Type Severity Reaction Status Date / Time No Known Allergies Allergy Verified 06/04/18 09:52 - Meds/Allergy Pre-op Review Medications Reviewed: Yes Allergies Reviewed: Yes Beta Blockers on Current Med List: No Anesthesia Results - Labs 06/07/18 06:08 06/07/18 06:08 - Imaging EKG: report reviewed, image reviewed (SINUS RHYTHM RIGHT AXIS DEVIATION) Additional studies: TTE: Impressions: LVEF 50-55%. Normal LV chamber size, wall thickness and function. Indeterminate diastolic function. Normal right ventricular structure and function. No evidence of a PFO with agitated saline contrast. Mild tricuspid regurgitation. Moderate pulmonary hypertension. Anesthesia Exam Last Vital Signs Temp 97.7 F 06/07/18 16:57 Pulse 75 06/07/18 16:57 Resp 17 06/07/18 16:57 BP 116/58 06/07/18 16:57 Pulse Ox 92 06/07/18 16:57 Weight: 88 kg - HEENT Pupil (Motor): Pupils equal, EOMI Mallampati: II Teeth: Normal Oral Opening: Greater than 3 - WOODWORKER HELPER LOC: Oriented - Cardiac Rhythm: Regular Murmur: None - Pulmonary Breath Sounds: bilateral Clear Respiratory Effort: Symmetrical Anesthesia Assess/Plan ASA Score: 3 Level of consciousness: Cooperative Anesthetic Plan: General Monitoring Plan: Standard Monitors Recovery Plan: PACU
[2018-06-07] MEDS ORDERED: Scopolamine Patch 1.5 MG PATCH.TD72 ONE (18:57)
[2018-06-07] MEDS ORDERED: *HR* Midazolam HCl 2 MG/2 ML VIAL ONE (20:31)
[2018-06-07] MEDS ORDERED: Lidocaine -MPF 2% 2 ML VIAL ONE (20:31)
[2018-06-07] MEDS ORDERED: Dexamethasone 4 MG/ML VIAL ONE (20:31)
[2018-06-07] MEDS ORDERED: *HR* Succinylcholine 200 MG/10 ML VIAL IVP ONE (20:31)
[2018-06-07] MEDS ORDERED: *HR* Propofol 200 MG/20 ML VIAL IVP ONE ×2 (20:31→21:10)
[2018-06-07] MEDS ORDERED: Ondansetron 4 MG/2 ML VIAL ONE (20:31)
[2018-06-07] MEDS ORDERED: *HR* FentaNYL (PF) 100 MCG/2 ML VIAL ONE (20:31)
[2018-06-07] MEDS ORDERED: Insulin DETEMIR 100 UNIT/ML X5UNITS SQ SCH ×2 (21:00)
[2018-06-07] MEDS ORDERED: Albuterol 2.5 MG/3 ML NEBULIZER IH ONE (21:19)
[2018-06-07] MEDS ORDERED: *HR* OxyCODONE/APAP 5/325 TABLET PO PRN (21:19)
[2018-06-07] MEDS ORDERED: *HR* Promethazine 25 MG/ML VIAL IVP PRN ×2 (21:19→22:20)
--- NOTE | 2018-06-07 21:58 | Operative Note ---
Date of procedure: 06/07/18 Pre-op diagnosis: Right below-knee amputation stump abscess Post-op diagnosis: same Procedure: Incision and drainage of right below the knee amputation abscess Complications: 0 Anesthesia: GETA Surgeon: Florentin Keating Was there an assistant director of admissions present: No Estimated blood loss (cc): 0 Specimen: Cultures Condition: stable Disposition: PACU Procedure in Detail: History This patient is a 57-year-old white female who was admitted because of pain in her right below the knee amputation site. She had undergone a right below-knee amputation in June 2016. This had healed without difficulty and the patient has been using a prosthesis. The patient fell about one month ago though she was wearing her prosthesis at the time. She developed a blister at the distal aspect of the amputation area about a month ago. She is also noted variability in controlling her diabetes. Patient was admitted because of redness and pain. An MRI was performed yesterday which demonstrated fluid collection suggestive of abscess. The patient IN the operating room for an I&D of these areas to drain the abscess and to promote resolution of the infection. Procedure After informed consent was obtained the patient was taken the operating room. Gen. anesthesia by LMA was established. The right lower extremity was sterilely prepped and draped. A timeout protocol was observed. An incision was made on the medial aspect of the distal right below the knee amputation at an area of fluctuance. A large amount of creamy pus immediately expressed itself from this area. Cultures and Gram stain were obtained from this material. The wound was then suction and the large cavity was identified. This was then irrigated. No necrotic material was identified. As the MRI had indicated there was also a fluid collection laterally a second incision was then made on the lateral portion of the amputation incision. No gross pus was identified however. This area was explored. Then both of the wounds were packed with half-inch iodoform gauze. A bulky dry dressing was then applied. The patient was then reversed from anesthesia and the LMA was removed. She was taken to the recovery room in stable condition. There were no intraoperative complications.
[2018-06-07] MEDS ORDERED: *HR* Dextrose 50 % in Water (Syg) 50 ML SYRINGE IVP PRN (22:20)
[2018-06-07] MEDS ORDERED: Ondansetron 4 MG/2 ML VIAL IVP PRN (22:20)
[2018-06-07] MEDS ORDERED: Naloxone 0.4 MG/ML INJ IVP PRN (22:20)
[2018-06-07] MEDS ORDERED: D5% in Water 1,000 ML IVC PRN (22:20)
[2018-06-07] MEDS ORDERED: Dextrose Gel 15 GM/37.5 ML TUBE PO PRN (22:20)
--- NOTE | 2018-06-08 00:21 | Anesthesia Evaluation Post Op ---
Date of Encounter: 06/08/18 Time of Encounter: 22:20 - Vital Signs Vital Signs: Last Vital Signs Temp 98.0 F 06/07/18 22:23 Pulse 72 06/07/18 22:23 Resp 16 06/07/18 22:23 BP 127/70 06/07/18 22:23 Pulse Ox 94 06/07/18 22:23 - Lungs Lungs: Clear Ascult./Percussion - Airway Airway: Non-obstructed - Cardiovascular Regular Rate - Mental Status Mental Status: Alert & Oriented, Answers Appropriately - Pain Pain Scale: 2 - Nausea Vomiting Nausea Vomiting: Not Present - Hydration Hydration: NPO - Discharge PostOp Status: Transfer Patient to floor
[2018-06-08] MEDS: Piperacillin/Tazobactam 3.375 GM in 0.9 % Sodium Chloride Mini Bag 100 ML IVPB SCH ×3 (01:27→16:55)
[2018-06-08] MEDS: traMADol 50 MG TABLET PO PRN ×3 (02:25→20:53)
[2018-06-08] MEDS: *HR* Heparin 5,000 UNIT/ML VIAL SQ SCH ×2 (05:26→16:57)
[2018-06-08 06:02] LABS: Basophils % 0.4 %; Eosinophils % 0.4 %; Hematocrit 36.1 % (35.3-44.9); Hemoglobin 10.7 g/dL (11.5-15.4); Immature Granulocytes % 3.2 % (0-4); Lymphocytes # 0.9 K/mcL (0.6-4.6); Lymphocytes % 10.6 %; Mean Corpuscular HGB Conc 29.6 g/dL (31.6-35.5); Mean Corpuscular Hemoglobin 24.3 pg (28.0-33.3); Mean Corpuscular Volume 81.9 fL (83.0-100.0); Mean Platelet Volume 10.2 fL (9.4-12.4); Monocytes # 0.3 K/mcL (0.0-1.3); Monocytes % 3.5 %; Neutrophils # 6.9 K/mcL (1.6-8.9); Platelet Count 277 K/mcL (140-400); Red Blood Count 4.41 M/mcL (3.82-4.97); Red Cell Distribution Width 15.6 % (11.5-14.5); Segmented Neutrophils % 81.9 %
[2018-06-08 06:18] LABS: BUN/Creatinine Ratio 22 (6-26); Blood Urea Nitrogen 13 mg/dL (6-20); Calcium 8.4 mg/dL (8.6-10.3); Carbon Dioxide 26 mEq/L (23-29); Chloride 101 mEq/L (98-107); Glucose 398 mg/dL (70-105); Osmolality,Calculated 301 (280-300); Potassium 5.1 mEq/L (3.5-5.1); Sodium 137 mEq/L (136-145); eGFR For Non-African Americans > 60 (> 60)
--- NOTE | 2018-06-08 06:59 | Internal Med Progress Note ---
<Sergei Garcia - Last Filed: 06/08/18 16:05> Hospitalist Progress Note - Encounter Date of Encounter: 06/08/18 Time of Encounter: 09:15 - Subjective Interval History: Patient is resting comfortably in bed at time of examination. She says that her pain status post I&D is not significantly unbearable and that she is doing well. Overall she has no acute complaints. - Exam Vitals: Temp Pulse Resp BP Pulse Ox 97.5 F L 70 16 124/73 98 06/08/18 02:21 06/08/18 03:39 06/08/18 03:39 06/08/18 03:39 06/08/18 03:39 Exam: Gen: Vitals noted. No acute distress. Appears comfortable. Mood labile given intervention today Neck: Trachea midline; supple Cardiac: RRR, no murmur, +S1/S2. No JVD noted. Pulmonary: CTA bilaterally, no wheezes, rales or rhonchi, equal chest expansion Abdomen: soft, nontender, no guarding. No masses Extremities: no edema, tenderness at the right stump site Skin: Right BKA with dressing over stump Neuro: moves all extremities, no focal deficits. Psych: Appropriate mood and behavior. A&Ox3 - Assessment and Plan (1) Diabetic ulcer of left foot Current Visit: No Status: Chronic Assessment and Plan: History of left plantar aspect ulcer. There was some blood noted under the dressing. Podiatry is consult has daily dressing changes Continue to stabilize glucose (2) Cellulitis Current Visit: Yes Status: Acute Assessment and Plan: Presented with right edema and pain of the right stump. Remained afebrile and normotensive overnight. She follows with podiatry on a regular basis due to worsening of her symptoms she presented to the ED 2 days ago. Podiatry has been consulted and recommending medical management. Her CRP was elevated at 233 on 9 repeat CRP on 06/04/18 was 97. She had an x-ray of the right lower leg which did not show findings of osteomyelitis. Her ESR was 120 at presentation repeat was 98 after 2 days of antibiotic. -Continue vancomycin day 6 and Zosyn day 6; duration of treatment depends on clinical picture. -Continue home Percocet for pain control -MRI of the right leg shows abscess formation at the tibial and fibular region as well as concern for osteomyelitis -Infectious disease consulted for antibiotic duration her condition (3) IDDM (insulin dependent diabetes mellitus) Current Visit: Yes Status: Chronic Assessment and Plan: History of uncontrolled diabetes is on insulin at home. At presentation her hemoglobin A1c was noted to be 11.7. Because this morning improved significantly and is noted to be 115 -Seffner decreased to 20 units and is currently on hold as she is nothing by mouth, -6 units 3 times a day with meals is currently on hold given she is undergoing surgical intervention later today -Continue medium corrective insulin scale ordered -We will continue to monitor glucose -Continue diabetic diet (4) GERD (gastroesophageal reflux disease) Current Visit: Yes Status: Acute Assessment and Plan: Continue omeprazole (5) Depression Current Visit: Yes Status: Acute Assessment and Plan: Continue home sertraline (6) Abscess Current Visit: Yes Status: Acute Assessment and Plan: Presented with right stump erythema and tenderness. MRI of the right leg showed large lobular fluid collection 5.8 x 3.1 x 3.8 cm in the soft tissues distal to the tibial stump as well as smaller fluid collection distal to the fibular stump 1 x 0.9 x 0.6 cm fluid collection in the soft tissues. Currently on vancomycin and Zosyn for the past 6 days Blood cultures are still pending -Infectious disease consulted, any recommendations appreciated -Surgical intervention for incision and drainage by Dr. Keating in OR yesterday which appears to have been successful. Management per Dr. Keating, we appreciate recommendations - Time Spent with Patient Total time spent is greater than 50% in coordination of care (as documented) at patient's floor/unit and/or counseling patient: Internal Medicine: Result - Labs CBC & Chem 7: 06/08/18 05:19 06/08/18 05:19 Labs: Short CBC 06/08/18 Range/Units 05:19 WBC 8.4 (4.3-11.1) K/mcL Hgb 10.7 L (11.5-15.4) g/dL Hct 36.1 (35.3-44.9) % Plt Count 277 (140-400) K/mcL Neutrophils # 6.9 (1.6-8.9) K/mcL BMP 06/08/18 05:19 Sodium 137 Potassium 5.1 D Chloride 101 Carbon Dioxide 26 BUN 13 Creatinine 0.59 L Glucose 398 H Calcium 8.4 L Consult Discharge Plan - Plan Additional Instructions: Follow up in wound care with Dr. Lenz next week. Please make appointment prior to d/c Referrals: Almas Ac DO [Primary Care Provider] - Florentin Keating MD [Partnered Physician] - <Reta Teixeira - Last Filed: 06/08/18 17:38> Hospitalist Progress Note - Encounter Date of Encounter: 06/08/18 - Exam Vitals: Temp Pulse Resp BP Pulse Ox 97.2 F L 73 18 124/52 97 06/08/18 16:00 06/08/18 16:00 06/08/18 16:00 06/08/18 16:00 06/08/18 16:00 - Assessment and Plan (1) Diabetic ulcer of left foot Current Visit: No Status: Chronic (2) Cellulitis Current Visit: Yes Status: Acute (3) IDDM (insulin dependent diabetes mellitus) Current Visit: Yes Status: Chronic (4) GERD (gastroesophageal reflux disease) Current Visit: Yes Status: Acute (5) Depression Current Visit: Yes Status: Acute (6) Abscess Current Visit: Yes Status: Acute - Time Spent with Patient Total time spent is greater than 50% in coordination of care (as documented) at patient's floor/unit and/or counseling patient: Internal Medicine: Result - Labs CBC & Chem 7: 06/08/18 05:19 06/08/18 05:19 Labs: Short CBC 06/08/18 Range/Units 05:19 WBC 8.4 (4.3-11.1) K/mcL Hgb 10.7 L (11.5-15.4) g/dL Hct 36.1 (35.3-44.9) % Plt Count 277 (140-400) K/mcL Neutrophils # 6.9 (1.6-8.9) K/mcL BMP 06/08/18 05:19 Sodium 137 Potassium 5.1 D Chloride 101 Carbon Dioxide 26 BUN 13 Creatinine 0.59 L Glucose 398 H Calcium 8.4 L - Attending Attestation I examined this patient and my medical decision-making was reviewed with the Resident Physician. I agree with the documented findings, disposition and treatment plan as described except to the extent set forth below. <Sergei Garcia - Last Filed: 06/08/18 16:05> (1) Diabetic ulcer of left foot Qualifiers: Diabetic foot ulcer location: unspecified part of foot Diabetes mellitus typ e: type 2 Non-pressure ulcer stage: limited to breakdown of skin Qualified Code(s): E11.621 - Type 2 diabetes mellitus with foot ulcer; L97.521 - Non- pressure chronic ulcer of other part of left foot limited to breakdown of skin (2) Cellulitis Qualifiers: Site of cellulitis: other site Qualified Code(s): L03.818 - Cellulitis of other sites (4) GERD (gastroesophageal reflux disease) Qualifiers: Esophagitis presence: esophagitis presence not specified Qualified Code(s): K21.9 - Gastro-esophageal reflux disease without esophagitis (5) Depression Qualifiers: Depression Type: major depressive disorder Major depression recurrence: unspecified whether recurrent Major depression episode severity: unspecified <Reta Teixeira - Last Filed: 06/08/18 17:38> (1) Diabetic ulcer of left foot Qualifiers: Diabetic foot ulcer location: unspecified part of foot Diabetes mellitus type: type 2 Non-pressure ulcer stage: limited to breakdown of skin Qualified Code(s): E11.621 - Type 2 diabetes mellitus with foot ulcer; L97.521 - Non- pressure chronic ulcer of other part of left foot limited to breakdown of skin (2) Cellulitis Qualifiers: Site of cellulitis: other site Qualified Code(s): L03.818 - Cellulitis of other sites (4) GERD (gastroesophageal reflux disease) Qualifiers: Esophagitis presence: esophagitis presence not specified Qualified Code(s): K21.9 - Gastro-esophageal reflux disease without esophagitis (5) Depression Qualifiers: Depression Type: major depressive disorder Major depression recurrence: unspecified whether recurrent Major depression episode severity: unspecified Qualified Code(s): F32.9 - Major depressive disorder, single episode, unspecified
[2018-06-08] MEDS: Insulin LISPRO 300 UNITS/3 ML VIAL SQ SCH ×7 (08:42→20:50)
[2018-06-08] MEDS: *HR* OxyCODONE/APAP 5/325 TABLET PO PRN ×2 (08:42→16:56)
[2018-06-08] MEDS ORDERED: Insulin DETEMIR 100 UNIT/ML X5UNITS SQ SCH (09:00)
[2018-06-08] MEDS: Insulin DETEMIR 100 UNIT/ML X5UNITS SQ SCH ×2 (11:33→20:50)
--- NOTE | 2018-06-08 11:43 | Infectious Disease Progress No ---
Date of Encounter: 06/08/18 Time of Encounter: 11:41 - Assessment and Plan (1) Abscess of right lower extremity Current Visit: Yes Status: Acute Location: Right BKA stump. Causative organism: Unclear. MRI of the right stump shows a large globular peripherally enhancing fluid collection measuring approximately 5.8 x 3.1 x 3.8 cm in the soft tissues distal to the tibial stump compatible with an abscess as well as a smaller separate 1 x 0.9 x 0.6 and an air-fluid collection soft tissues distal to the fibular stump also compatible with an abscess. Likely secondary to chronic nonhealing ulceration. ESR elevated at 120 with a CRP of 233. Improved since being on IV antibiotics. Podiatry consult and following. Vascular surgery consulted. Status post I & D right stump 06/07/[address] Keating. Operative note reviewed. Intra-op findings discussed with Dr. Keating. States infection very close to bone. Intra-op cultures are pending. Currently on vancomycin and Zosyn. Recommendations: Await blood cultures to finalize. Await intra-op cultures. Wound care and dressing changes per the podiatry team. Continue vancomycin IV. Pharmacy to dose. Goal trough approximately 15. Continue Zosyn 3.375 g IV every 8 hours. Duration of treatment depends on the clinical picture, but likely 2-6 weeks. Monitor renal function for drug toxicity and dose adjust antibiotics. family services specialist to assist with discharge planning. (2) Osteomyelitis Current Visit: No Status: Suspected Suspected. Location: Right tibial stump. Reactive osteitis vs. early OM. ESR and CRP very elevated. High index of suspicion for OM. Vascular surgery consulted. Status post I & D. No obvious bone infection noted intra-op, but pus was very close to the bone. Currently on Vanc and Zosyn. Qualifiers: Osteomyelitis type: chronic multifocal Osteomyelitis location: foot Laterality: right Qualified Code(s): M86.371 - Chronic multifocal osteomyelitis, right ankle and foot (3) Cellulitis Current Visit: Yes Status: Acute Location: Right stump. Causative organism: Unclear. No wound cultures have been obtained.Clinically improved. Intra-op cultures pending. Currently on IV vancomycin and Zosyn. Qualifiers: Site of cellulitis: other site Qualified Code(s): L03.818 - Cellulitis of other sites (4) Hemangioma of liver Current Visit: No Status: Chronic (5) Insulin dependent diabetes mellitus Current Visit: No Status: Chronic Hemoglobin A1c 11.7%. Recommend aggressive glucose monitoring and control to promote wound healing and prevent reinfection. Management per the primary team. 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 No acute events noted overnight. Patient states overall she feels okay. Denies any fevers or chills or rigors. Denies chest pain, shortness of breath, or cough. Denies nausea, vomiting, diarrhea, or constipation. Denies abdominal pain or urinary complaints. Denies any oral thrush or new skin lesions. Reports minimal pain at the surgical site. Infect Dis PN-Objective Data - Labs CBC & Chem 7: 06/08/18 05:19 06/08/18 05:19 Labs: Laboratory Results - last 24 hr 06/06/18 06/06/18 06/07/18 11:18 19:41 12:07 WBC RBC Hgb Hct MCV MCH MCHC RDW Plt Count MPV Immature Gran % Seg Neutrophils % Lymphocytes % Monocytes % Eosinophils % Basophils % Neutrophils # Lymphocytes # Monocytes # Eosinophils # Basophils # Sodium Potassium Chloride Carbon Dioxide BUN Creatinine Est GFR ( Amer) Est GFR (Non-Af Amer) BUN/Creatinine Ratio Glucose POC Glucose 174 H 188 H 117 H Calculated Osmolality Calcium 06/07/18 06/08/18 06/08/18 17:02 05:19 05:19 WBC 8.4 RBC 4.41 Hgb 10.7 L Hct 36.1 MCV 81.9 L MCH 24.3 L MCHC 29.6 L RDW 15.6 H Plt Count 277 MPV 10.2 Immature Gran % 3.2 Seg Neutrophils % 81.9 Lymphocytes % 10.6 Monocytes % 3.5 Eosinophils % 0.4 Basophils % 0.4 Neutrophils # 6.9 Lymphocytes # 0.9 Monocytes # 0.3 Eosinophils # 0.0 Basophils # 0.0 Sodium 137 Potassium 5.1 D Chloride 101 Carbon Dioxide 26 BUN 13 Creatinine 0.59 L Est GFR ( Amer) > 60 Est GFR (Non-Af Amer) > 60 BUN/Creatinine Ratio 22 Glucose 398 H POC Glucose 97 Calculated Osmolality 301 H Calcium 8.4 L Cultures: Cultures 06/07/18 21:50 Gram Stain - Final Right Leg 06/07/18 21:50 Wound Culture - Preliminary Right Leg Culture is incubating. 06/07/18 21:50 Anaerobic Culture - Preliminary Right Leg Culture is incubating. 06/02/18 22:15 Blood Culture - Final Peripheral Venipuncture No growth. Final report. 06/02/18 22:10 Blood Culture - Final Peripheral Venipuncture No growth. Final report. Exam - Constitutional Vitals: Temp Pulse Resp BP Pulse Ox 97.7 F 78 16 119/60 95 06/08/18 11:12 06/08/18 11:12 06/08/18 11:12 06/08/18 11:12 06/08/18 11:12 General appearance: average body habitus, cooperative, no acute distress - Head Head exam: Present: atraumatic, normal inspection, normocephalic - Eye Eye exam: Present: EOMI, normal appearance, PERRL Pupils: Present: normal accommodation - ENT ENT exam: Present: mucous membranes moist - Neck Neck exam: Present: normal inspection - Respiratory Respiratory exam: Present: CTAB. Absent: rales, respiratory distress, rhonchi, wheezes - Cardiovascular Cardiovascular exam: Present: RRR, +S1, +S2 - GI/Abdominal GI/Abdominal exam: Present: distended, normal bowel sounds, soft. Absent: tenderness - Extremities Exam Extremities exam: Absent: normal inspection (Right stump dressing C/D/I.), pedal edema - Neurological Exam Neurological exam: Present: alert, oriented X3, no focal deficits - Psychiatric Psychiatric exam: Present: normal affect, normal mood - Skin Skin exam: Present: dry, intact, normal color, warm Consult Discharge Plan - Plan Additional Instructions: Follow up in wound care with Dr. Lenz next week. Please make appointment prior to d/c Referrals: Almas Ac DO [Primary Care Provider] - Florentin Keating MD [Partnered Physician] - - Attending Attestation I have personally performed a face to face evaluation on this patient. I have reviewed and agree with the care plan. History and Exam by me shows: Assessment and plan: 1.Abscess of right lower extremity - 5.8 x 3.1 x 3.8 cm . Causative organism not clear 2.Osteomyelitis 3.Insulin-dependent diabetes mellitus 4.Hypertension 5.Depression Recommendations: s/p I&D appreciate surgery eval and intra op findings continue current antibiotics until cultures finalize
--- NOTE | 2018-06-08 17:25 | Vascular/[facility] Progress Note ---
Date of Encounter: 06/08/18 Time of Encounter: 10:00 - Assessment and plan (1) IDDM (insulin dependent diabetes mellitus) Current Visit: Yes Status: Chronic Patient has long-standing diabetes. She is under medical management. (2) Abscess of right lower extremity Current Visit: Yes Status: Acute Patient is status post I&D of right lower knee amputation stump abscess. Gram stain is positive. Culture is pending. Anticipate patient will require extended care facility placement upon discharge. - Subjective Interval history: Patient is postoperative day #1 following incision and drainage of right vkdyg-sik-xyxs amputation stump abscess. The initial Gram stain was for gram- positive cocci. The culture results are pending. The patient has no new complaints. - Physical Examination General: Present: Conversant, No Apparent Distress Vascular: Present: Surgical incisions (Dressing is intact to right below the knee amputation.) Results 06/08/18 05:19 06/08/18 05:19 Lab Results, Last 24 hours 06/08/18 06/08/18 05:19 05:19 WBC 8.4 Hgb 10.7 L Hct 36.1 Plt Count 277 Sodium 137 Potassium 5.1 D Chloride 101 Carbon Dioxide 26 BUN 13 Creatinine 0.59 L Glucose 398 H Calcium 8.4 L Consult Discharge Plan - Plan Additional Instructions: Follow up in wound care with Dr. Lenz next week. Please make appointment prior to d/c Referrals: Almas Ac DO [Primary Care Provider] - Florentin Keating MD [Partnered Physician] -
[2018-06-09] MEDS: Piperacillin/Tazobactam 3.375 GM in 0.9 % Sodium Chloride Mini Bag 100 ML IVPB SCH ×4 (00:01→23:21)
[2018-06-09] MEDS: *HR* OxyCODONE/APAP 5/325 TABLET PO PRN ×3 (00:08→17:16)
[2018-06-09 05:03] LABS: BUN/Creatinine Ratio 15 (6-26); Blood Urea Nitrogen 12 mg/dL (6-20); Calcium 8.1 mg/dL (8.6-10.3); Carbon Dioxide 29 mEq/L (23-29); Chloride 100 mEq/L (98-107); Glucose 299 mg/dL (70-105); Osmolality,Calculated 293 (280-300); Potassium 4.1 mEq/L (3.5-5.1); Sodium 136 mEq/L (136-145); eGFR For Non-African Americans > 60 (> 60)
[2018-06-09] MEDS: *HR* Heparin 5,000 UNIT/ML VIAL SQ SCH ×2 (05:39→18:12)
[2018-06-09] MEDS: traMADol 50 MG TABLET PO PRN ×2 (05:39→20:49)
[2018-06-09] MEDS: Insulin LISPRO 300 UNITS/3 ML VIAL SQ SCH ×7 (08:10→20:50)
[2018-06-09] MEDS: Insulin DETEMIR 100 UNIT/ML X5UNITS SQ SCH (10:21)
--- NOTE | 2018-06-09 11:09 | Vascular/[facility] Progress Note ---
Date of Encounter: 06/09/18 Time of Encounter: 11:06 - Assessment and plan (1) IDDM (insulin dependent diabetes mellitus) Current Visit: Yes Status: Chronic Patient has long-standing diabetes. She is under medical management. (2) Abscess of right lower extremity Current Visit: Yes Status: Acute Patient is status post I&D of right lower knee amputation stump abscess. Gram stain is positive. Culture is S aureus. Anticipate patient will require extended care facility placement upon discharge. Begin daily dressing changes with packing. Further recommendations per Wound Service. - Subjective Interval history: Patient is postoperative day #2 following incision and drainage of right isfkw-dhi-dwtw amputation stump abscess. The Gram stain was for gram-positive cocci. The culture results are S aureus. The patient has no new complaints. Vital Signs, Last 4 Hours Temp Pulse Resp BP Pulse Ox 06/09/18 07:09 97.4 F L 73 18 114/64 97 - Physical Examination General: Present: Conversant, No Apparent Distress HEENT: Present: Atraumatic Neck: Absent: JVD Vascular: Present: Surgical incisions (clean. no erythema. no edema. packing removed/viable tissue in wound/no gross pus) Results 06/08/18 05:19 06/09/18 04:06 Lab Results, Last 24 hours 06/09/18 04:06 Sodium 136 Potassium 4.1 Chloride 100 Carbon Dioxide 29 BUN 12 Creatinine 0.79 Glucose 299 H Calcium 8.1 L Consult Discharge Plan - Plan Additional Instructions: Follow up in wound care with Dr. Lenz next week. Please make appointment prior to d/c Referrals: Almas Ac DO [Primary Care Provider] - Florentin Keating MD [Partnered Physician] -
--- NOTE | 2018-06-09 13:22 | Internal Med Progress Note ---
Hospitalist Progress Note - Encounter Date of Encounter: 06/09/18 Time of Encounter: 11:38 - Subjective Interval History: no complaints, no acute events. right post-op pain controlled. Denies fevers/chills. - Exam Vitals: Temp Pulse Resp BP Pulse Ox 97.6 F 84 16 99/59 97 06/09/18 11:47 06/09/18 11:47 06/09/18 11:47 06/09/18 11:47 06/09/18 12:44 Exam: Gen: NAD Neck: warm, supple Cardiac: RRR, no murmur, +S1/S2. No JVD noted. Pulmonary: CTA bilaterally, no wheezes, rales or rhonchi, equal chest expansion Abdomen: soft, nontender, no guarding. No masses Extremities: no edema, tenderness at the right stump site Skin: Right BKA with dressing over stump Neuro: moves all extremities, no focal deficits. Psych: Appropriate mood and behavior. A&Ox3 - Assessment and Plan (1) Abscess Current Visit: Yes Status: Acute Assessment and Plan: Presented with right stump erythema and tenderness. MRI of the right leg showed large lobular fluid collection 5.8 x 3.1 x 3.8 cm in the soft tissues distal to the tibial stump as well as smaller fluid collection distal to the fibular stump 1 x 0.9 x 0.6 cm fluid collection in the soft tissues. Currently on vancomycin and Zosyn S/P I&D, cultures pending. Await final cultures prior to DC (2) Diabetic ulcer of left foot Current Visit: No Status: Chronic Assessment and Plan: History of left plantar aspect ulcer. There was some blood noted under the dressing. Podiatry is consult has daily dressing changes Continue to stabilize glucose (3) Cellulitis Current Visit: Yes Status: Acute Assessment and Plan: Presented with right edema and pain of the right stump. Remained afebrile and normotensive overnight. She follows with podiatry on a regular basis due to worsening of her symptoms she presented to the ED 2 days ago. Podiatry has been consulted and recommending medical management. Her CRP was elevated at 233 on 9 repeat CRP on 06/04/18 was 97. She had an x-ray of the right lower leg which did not show findings of osteomyelitis. Her ESR was 120 at presentation repeat was 98 after 2 days of antibiotic. -Continue vancomycin/Zosyn -Continue home Percocet for pain control -MRI of the right leg shows abscess formation at the tibial and fibular region as well as concern for osteomyelitis -Infectious disease consulted for antibiotic duration her condition (4) IDDM (insulin dependent diabetes mellitus) Current Visit: Yes Status: Chronic Assessment and Plan: History of uncontrolled diabetes is on insulin at home. Currently on [place] with humalog TID but will switch to her home dose of novolog 70-30 and adjust as needed. (5) GERD (gastroesophageal reflux disease) Current Visit: Yes Status: Acute Assessment and Plan: Continue omeprazole (6) Depression Current Visit: Yes Status: Acute Assessment and Plan: Continue home sertraline - Time Spent with Patient Total time spent is greater than 50% in coordination of care (as documented) at patient's floor/unit and/or counseling patient: Internal Medicine: Result - Labs CBC & Chem 7: 06/08/18 05:19 06/09/18 04:06 Labs: BMP 06/09/18 04:06 Sodium 136 Potassium 4.1 Chloride 100 Carbon Dioxide 29 BUN 12 Creatinine 0.79 Glucose 299 H Calcium 8.1 L Consult Discharge Plan - Plan Additional Instructions: Follow up in wound care with Dr. Lenz next week. Please make appointment prior to d/c Referrals: Almas Ac DO [Primary Care Provider] - Florentin Keating MD [Partnered Physician] - (2) Diabetic ulcer of left foot Qualifiers: Diabetic foot ulcer location: unspecified part of foot Diabetes mellitus type: type 2 Non-pressure ulcer stage: limited to breakdown of skin Qualified Code(s): E11.621 - Type 2 diabetes mellitus with foot ulcer; L97.521 - Non- pressure chronic ulcer of other part of left foot limited to breakdown of skin (3) Cellulitis Qualifiers: Site of cellulitis: other site Qualified Code(s): L03.818 - Cellulitis of other sites (5) GERD (gastroesophageal reflux disease) Qualifiers: Esophagitis presence: esophagitis presence not specified Qualified Code(s): K21.9 - Gastro-esophageal reflux disease without esophagitis (6) Depression Qualifiers: Depression Type: major depressive disorder Major depression recurrence: unspecified whether recurrent Major depression episode severity: unspecified Qualified Code(s): F32.9 - Major depressive disorder, single episode, unspecified
[2018-06-09] MEDS: Insulin NPH/REG 70/30 100 UNIT/ML (x5UNIT) SQ SCH (17:17)
[2018-06-09] MEDS ORDERED: NON-FORMULARY MEDICATION 1 EACH EACH (Insulin Aspart Prot/Insuln Asp [Novolog Mix 70-30 Vi SQ SCH (21:00)
[2018-06-10] MEDS: *HR* Heparin 5,000 UNIT/ML VIAL SQ SCH ×2 (05:30→18:34)
[2018-06-10] MEDS: *HR* OxyCODONE/APAP 5/325 TABLET PO PRN ×3 (05:31→16:36)
[2018-06-10] MEDS: Insulin NPH/REG 70/30 100 UNIT/ML (x5UNIT) SQ SCH ×2 (08:52→16:45)
[2018-06-10] MEDS: Insulin LISPRO 300 UNITS/3 ML VIAL SQ SCH ×7 (08:53→23:27)
[2018-06-10] MEDS: Piperacillin/Tazobactam 3.375 GM in 0.9 % Sodium Chloride Mini Bag 100 ML IVPB SCH ×3 (08:55→23:28)
[2018-06-10] MEDS: traMADol 50 MG TABLET PO PRN ×2 (08:56→20:34)
[2018-06-10 11:41] LABS: BUN/Creatinine Ratio 30 (6-26); Blood Urea Nitrogen 17 mg/dL (6-20); Calcium 8.5 mg/dL (8.6-10.3); Carbon Dioxide 30 mEq/L (23-29); Chloride 104 mEq/L (98-107); Glucose 167 mg/dL (70-105); Osmolality,Calculated 291 (280-300); Potassium 3.8 mEq/L (3.5-5.1); Sodium 138 mEq/L (136-145); eGFR For Non-African Americans > 60 (> 60)
[2018-06-10] MEDS ORDERED: Furosemide 40 MG/4 ML VIAL IVP ONE (14:20)
--- NOTE | 2018-06-10 14:24 | Internal Med Progress Note ---
Hospitalist Progress Note - Encounter Date of Encounter: 06/10/18 Time of Encounter: 10:21 - Subjective Interval History: Patient has complaints of abdominal distension. Denies cp, SOB, n/v, palpitations, fevers. Post- I&D area no complaints. - Exam Vitals: Temp Pulse Resp BP Pulse Ox 97.9 F 83 15 145/75 96 06/10/18 10:03 06/10/18 10:03 06/10/18 10:03 06/10/18 10:03 06/10/18 10:03 Exam: Gen: NAD Neck: warm, supple Cardiac: RRR, no murmur, +S1/S2. No JVD noted. Pulmonary: CTA bilaterally, no wheezes, rales or rhonchi, equal chest expansion Abdomen: soft, moderate distension, normal bowel sounds, no tenderness, no guarding. Extremities: tenderness at the right stump site improved. Right stump edematous. 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 Psych: Appropriate mood and behavior. A&Ox3 - Assessment and Plan (1) Abscess Current Visit: Yes Status: Acute Assessment and Plan: Presented with right stump erythema and tenderness. MRI of the right leg showed large lobular fluid collection 5.8 x 3.1 x 3.8 cm in the soft tissues distal to the tibial stump as well as smaller fluid collection distal to the fibular stump 1 x 0.9 x 0.6 cm fluid collection in the soft tissues. Currently on vancomycin and Zosyn S/P I&D, cultures pending. Await final cultures prior to DC (2) Diabetic ulcer of left foot Current Visit: No Status: Chronic Assessment and Plan: History of left plantar aspect ulcer. There was some blood noted under the dressing. Podiatry is consult has daily dressing changes (3) Cellulitis Current Visit: Yes Status: Acute Assessment and Plan: Presented with right edema and pain of the right stump. Remained afebrile and normotensive overnight. She follows with podiatry on a regular basis due to worsening of her symptoms she presented to the ED 2 days ago. Podiatry has been consulted and recommending medical management. Her CRP was elevated at 233 on 9 repeat CRP on 06/04/18 was 97. She had an x-ray of the right lower leg which did not show findings of osteomyelitis. Her ESR was 120 at presentation repeat was 98 after 2 days of antibiotic. -Continue vancomycin/Zosyn -Continue home Percocet for pain control -MRI of the right leg shows abscess formation at the tibial and fibular region as well as concern for osteomyelitis -Infectious disease following (4) IDDM (insulin dependent diabetes mellitus) Current Visit: Yes Status: Chronic Assessment and Plan: History of uncontrolled diabetes is on insulin at home. Continue Novolog 70-30 (5) GERD (gastroesophageal reflux disease) Current Visit: Yes Status: Acute Assessment and Plan: Continue omeprazole (6) Depression Current Visit: Yes Status: Acute Assessment and Plan: Continue home sertraline (7) Ascites Current Visit: No Status: Chronic Assessment and Plan: Occurs frequently and patient often needs paracentesis. Will arrange for paracentesis tomorrow and also give Lasix today. - Time Spent with Patient Total time spent is greater than 50% in coordination of care (as documented) at patient's floor/unit and/or counseling patient: Internal Medicine: Result - Labs CBC & Chem 7: 06/08/18 05:19 06/10/18 11:10 Labs: BMP 06/10/18 11:10 Sodium 138 Potassium 3.8 Chloride 104 Carbon Dioxide 30 H BUN 17 Creatinine 0.56 L Glucose 167 H Calcium 8.5 L Consult Discharge Plan - Plan Additional Instructions: Follow up in wound care with Dr. Lenz next week. Please make appointment prior to d/c Referrals: Almas Ac DO [Primary Care Provider] - Florentin Keating MD [Partnered Physician] - (2) Diabetic ulcer of left foot Qualifiers: Diabetic foot ulcer location: unspecified part of foot Diabetes mellitus type: type 2 Non-pressure ulcer stage: limited to breakdown of skin Qualified Code(s): E11.621 - Type 2 diabetes mellitus with foot ulcer; L97.521 - Non- pressure chronic ulcer of other part of left foot limited to breakdown of skin (3) Cellulitis Qualifiers: Site of cellulitis: other site Qualified Code(s): L03.818 - Cellulitis of other sites (5) GERD (gastroesophageal reflux disease) Qualifiers: Esophagitis presence: esophagitis presence not specified Qualified Code(s): K21.9 - Gastro-esophageal reflux disease without esophagitis (6) Depression Qualifiers: Depression Type: major depressive disorder Major depression recurrence: unspecified whether recurrent Major depression episode severity: unspecified Qualified Code(s): F32.9 - Major depressive disorder, single episode, unspecified (7) Ascites Qualifiers: Ascites type: other type Qualified Code(s): R18.8 - Other ascites
--- NOTE | 2018-06-10 14:46 | Vascular/[facility] Progress Note ---
Date of Encounter: 06/10/18 Time of Encounter: 13:50 - Assessment and plan (1) IDDM (insulin dependent diabetes mellitus) Current Visit: Yes Status: Chronic Patient has long-standing diabetes. She is under medical management. (2) Abscess of right lower extremity Current Visit: Yes Status: Acute Patient is status post I&D of right lower knee amputation stump abscess. Gram stain is positive. Culture is S aureus. Anticipate patient will require extended care facility placement upon discharge. Daily dressing changes with packing. Further recommendations per Wound Service. Patient to outpatient wound service for further follow-up for right BKA abscess and dressing changes. At this point it does not appear the patient needs a wound VAC for this lesion. No scheduled follow-up with vascular surgery. Patient may return to the vascular surgery service outpatient clinic as an on needed basis - Subjective Interval history: Patient is postoperative day #3 following incision and drainage of right awqvm-ykn-yjkv amputation stump abscess. The Gram stain was for gram-positive cocci. The culture results are S aureus. Sensitivities demonstrate the bacteria is sensitive to multiple antibiotics. The patient has no new complaints referable to the amputation site however, she is concerned because her abdomen can continues to distend and feels that it is time for another paracentesis. Her last paracentesis was in March and the one before that was in December 2017.. - Physical Examination General: Present: Conversant, No Apparent Distress Vascular: Present: Surgical incisions (Patient has dry sterile dressing on right BKA site.) Results 06/08/18 05:19 06/10/18 11:10 Lab Results, Last 24 hours 06/10/18 11:10 Sodium 138 Potassium 3.8 Chloride 104 Carbon Dioxide 30 H BUN 17 Creatinine 0.56 L Glucose 167 H Calcium 8.5 L Consult Discharge Plan - Plan Additional Instructions: Follow up in wound care with Dr. Lenz next week. Please make appointment prior to d/c Referrals: Almas Ac DO [Primary Care Provider] - Florentin Keating MD [Partnered Physician] -
[2018-06-10] MEDS: Dextrose Gel 15 GM/37.5 ML TUBE PO PRN ×2 (16:30→17:03)
[2018-06-11 04:36] LABS: BUN/Creatinine Ratio 36 (6-26); Blood Urea Nitrogen 24 mg/dL (6-20); Calcium 8.6 mg/dL (8.6-10.3); Carbon Dioxide 28 mEq/L (23-29); Chloride 99 mEq/L (98-107); Glucose 351 mg/dL (70-105); Osmolality,Calculated 300 (280-300); Potassium 4.3 mEq/L (3.5-5.1); Sodium 136 mEq/L (136-145); eGFR For Non-African Americans > 60 (> 60)
[2018-06-11] MEDS: *HR* OxyCODONE/APAP 5/325 TABLET PO PRN ×3 (05:48→17:39)
[2018-06-11] MEDS: *HR* Heparin 5,000 UNIT/ML VIAL SQ SCH ×2 (05:48→17:39)
[2018-06-11] MEDS: Insulin NPH/REG 70/30 100 UNIT/ML (x5UNIT) SQ SCH ×2 (07:42→21:38)
[2018-06-11] MEDS: Insulin LISPRO 300 UNITS/3 ML VIAL SQ SCH ×4 (07:43→11:43)
[2018-06-11] MEDS: Piperacillin/Tazobactam 3.375 GM in 0.9 % Sodium Chloride Mini Bag 100 ML IVPB SCH (07:46)
--- NOTE | 2018-06-11 10:18 | IR Procedure Note ---
Date of procedure: 06/11/18 Consent Obtained: Written consent Timeout: Correct patient and procedure verified, Correct site verified, Time out performed, Skin prep completed Local anesthetic: Lidocaine 1% Indications: abdominal ascites Procedure Performed: paracentesis, left Was there an environmental engineering assistant present: No Site/Technique: left abdominal paracentesis Results/Findings: straw colored abdominal fluid Estimated blood loss (cc): 0 Complications: None; Tolerated procedure well Post Procedure Treatment Plan: stay on floor Specimen: abdominal ascites fluid
--- NOTE | 2018-06-11 10:46 | Infectious Disease Progress No ---
Date of Encounter: 06/11/18 Time of Encounter: 10:44 - Assessment and Plan (1) Abscess of right lower extremity Current Visit: Yes Status: Acute Location: Right BKA stump. Causative organism: MSSA MRI of the right stump shows a large globular peripherally enhancing fluid collection measuring approximately 5.8 x 3.1 x 3.8 cm in the soft tissues distal to the tibial stump compatible with an abscess as well as a smaller separate 1 x 0.9 x 0.6 and an air-fluid collection soft tissues distal to the fibular stump also compatible with an abscess. Likely secondary to chronic nonhealing ulceration. ESR elevated at 120 with a CRP of 233. Improved since being on IV antibiotics. Podiatry consult and following. Vascular surgery consulted. Status post I & D right stump 06/07/[address] Keating. Operative note reviewed. Intra-op findings discussed with Dr. Keating. States infection very close to bone. Intra-op cultures as above. Currently on vancomycin and Zosyn. Recommendations: Add ESR and CRP to AM labs. Wound care and dressing changes per the podiatry team. Discontinue Vanc and Zosyn. Start Ancef 2 grams IV Q8H. Duration of treatment depends on the clinical picture, but likely 2-6 weeks. Monitor renal function for drug toxicity and dose adjust antibiotics. director field services to assist with discharge planning. Consult VAT to switch out EPIV for midline. Will need weekly CBC, BUN/Cr, ESR, CRP. Will need weekly IV care per protocol. Follow up with ID 06/27/18 at 1345. (2) Osteomyelitis Current Visit: No Status: Suspected Suspected. Location: Right tibial stump. Reactive osteitis vs. early OM. ESR and CRP very elevated. High index of suspicion for OM. Vascular surgery consulted. Status post I & D. No obvious bone infection noted intra-op, but pus was very close to the bone. Currently on Vanc and Zosyn. Qualifiers: Osteomyelitis type: chronic multifocal Osteomyelitis location: foot Laterality: right Qualified Code(s): M86.371 - Chronic multifocal osteomyelitis, right ankle and foot (3) Cellulitis Current Visit: Yes Status: Acute Location: Right stump. Causative organism: Unclear. No wound cultures have been obtained.Clinically improved. Intra-op cultures positive for MSSA. Currently on IV vancomycin and Zosyn. Qualifiers: Site of cellulitis: other site Qualified Code(s): L03.818 - Cellulitis of other sites (4) Hemangioma of liver Current Visit: No Status: Chronic (5) Insulin dependent diabetes mellitus Current Visit: No Status: Chronic Hemoglobin A1c 11.7%. Recommend aggressive glucose monitoring and control to promote wound healing and prevent reinfection. Management per the primary team. 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 No acute events noted overnight. Patient states overall she feels okay. Denies any fevers or chills or rigors. Denies chest pain, shortness of breath, or cough. Denies nausea, vomiting, diarrhea, or constipation. Denies abdominal pain or urinary complaints. Denies any oral thrush or new skin lesions. Reports minimal pain at the surgical site. STatus post paracentesis this morning. Infect Dis PN-Objective Data - Labs CBC & Chem 7: 06/08/18 05:19 06/11/18 03:35 Labs: Laboratory Results - last 24 hr 06/09/18 06/09/18 06/10/18 11:50 16:09 11:10 Sodium 138 Potassium 3.8 Chloride 104 Carbon Dioxide 30 H BUN 17 Creatinine 0.56 L Est GFR ( Amer) > 60 Est GFR (Non-Af Amer) > 60 BUN/Creatinine Ratio 30 H Glucose 167 H POC Glucose 271 H 202 H Calculated Osmolality 291 Calcium 8.5 L 06/11/18 06/11/18 03:35 07:02 Sodium 136 Potassium 4.3 Chloride 99 Carbon Dioxide 28 BUN 24 H Creatinine 0.66 Est GFR ( Amer) > 60 Est GFR (Non-Af Amer) > 60 BUN/Creatinine Ratio 36 H Glucose 351 H POC Glucose 369 H Calculated Osmolality 300 Calcium 8.6 Cultures: Cultures 06/07/18 21:50 Anaerobic Culture - Preliminary Right Leg At this time, no anaerobic growth is present. The culture will be finalized after 5 days of incubation. 06/07/18 21:50 Wound Culture - Final Right Leg Staphylococcus aureus 06/07/18 21:50 Gram Stain - Final Right Leg 06/02/18 22:15 Blood Culture - Final Peripheral Venipuncture No growth. Final report. 06/02/18 22:10 Blood Culture - Final Peripheral Venipuncture No growth. Final report. - Impressions Impressions Chest X-Ray 06/10/18 14:20 IMPRESSION: 1. Small right pleural effusion with right basilar atelectasis. 2. Borderline enlarged cardiac silhouette. D/ / Rodri Bullock MD / Rodri Bullock MD Interpreting Provider: Rodri Bullock MD Exam - Constitutional Vitals: Temp Pulse Resp BP Pulse Ox 97.7 F 87 17 116/67 95 06/11/18 06:29 06/11/18 06:29 06/11/18 06:29 06/11/18 06:29 06/11/18 06:29 General appearance: average body habitus, cooperative, no acute distress - Head Head exam: Present: atraumatic, normal inspection, normocephalic - Eye Eye exam: Present: EOMI, normal appearance, PERRL Pupils: Present: normal accommodation - ENT ENT exam: Present: mucous membranes moist - Neck Neck exam: Present: normal inspection - Respiratory Respiratory exam: Present: CTAB. Absent: rales, respiratory distress, rhonchi, wheezes - Cardiovascular Cardiovascular exam: Present: RRR, +S1, +S2 - GI/Abdominal GI/Abdominal exam: Present: distended, normal bowel sounds, soft. Absent: tenderness - Extremities Exam Extremities exam: Absent: joint swelling, normal inspection (Right stump dressing C/D/I. Left foot dressing C/D/I.), pedal edema, tenderness - Neurological Exam Neurological exam: Present: alert, oriented X3, no focal deficits - Psychiatric Psychiatric exam: Present: normal affect, normal mood - Skin Skin exam: Present: dry, intact, normal color, warm Consult Discharge Plan - Plan Additional Instructions: Follow up in wound care with Dr. Lenz next week. Please make appointment prior to d/c Referrals: Almas Ac DO [Primary Care Provider] - Florentin Keating MD [Partnered Physician] - Kiana Carlos CNP [Advanced Practice Nurse] - 06/27/18 1:45 pm Prescriptions: CeFAZolin Syr 2,000MG/20 ML [Ancef Syringe 2,000 MG/20 ML] 2,000 mg IVPB Q8H 30 Days #90 syringe RX: OxyCODONE/APAP 5/325 [Percocet 5/325 MG] 1 tab PO Q8H PRN 1 Days #3 tablet PRN Reason: Pain - Attending Attestation I have personally performed a face to face evaluation on this patient. I have reviewed and agree with the care plan. History and Exam by me shows: Assessment and plan: 1.Abscess of right lower extremity - 5.8 x 3.1 x 3.8 cm . Causative organism not clear 2.Osteomyelitis 3.Insulin-dependent diabetes mellitus 4.Hypertension 5.Depression Recommendations: s/p I&D; intra op culture MSSA will d/c on 6 weeks of cefazolin
--- NOTE | 2018-06-11 15:00 | Discharge Summary ---
<Sergei Garcia - Last Filed: 06/11/18 14:53> - NOTES TO OUTPATIENT PROVIDER Notes to Outpatient Provider: Presented with right BKA cellulitis and abscess. S/p surgical I&D. D/c to snf on IV ancef with f/u at ID clinic Orders not resulted at time of discharge: Pending orders 06/07/18 21:50 Culture,Anaerobic [RM] Routine Date of Encounter: 06/11/18 Time of Encounter: 14:54 - Discharge Diagnosis (1) Cellulitis Priority: Primary Status: Acute Qualifiers: Site of cellulitis: other site Qualified Code(s): L03.818 - Cellulitis of other sites (2) Ascites Priority: Secondary Status: Chronic Qualifiers: Ascites type: other type Qualified Code(s): R18.8 - Other ascites (3) Diabetic ulcer of left foot Priority: Secondary Status: Chronic Qualifiers: Diabetic foot ulcer location: unspecified part of foot Diabetes mellitus type: type 2 Non-pressure ulcer stage: limited to breakdown of skin Qualified Code(s): E11.621 - Type 2 diabetes mellitus with foot ulcer; L97.521 - Non-pressure chronic ulcer of other part of left foot limited to breakdown of skin (4) IDDM (insulin dependent diabetes mellitus) Priority: Secondary Status: Chronic (5) GERD (gastroesophageal reflux disease) Priority: Secondary Status: Acute Qualifiers: Esophagitis presence: esophagitis presence not specified Qualified Code(s): K21.9 - Gastro-esophageal reflux disease without esophagitis (6) Depression Priority: Secondary Status: Acute Qualifiers: Depression Type: major depressive disorder Major depression recurrence: unspecified whether recurrent Major depression episode severity: unspecified Qualified Code(s): F32.9 - Major depressive disorder, single episode, unspecified (7) Abscess Priority: Primary Status: Acute Hospital course: Ms. 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 She has been following with podiatry for the skin breakdown but she had noticed that her glucose of been getting high and she was having some redness and swelling as well as some pain in her legs so she felt that she had needed to get it checked out. She was initially treated for cellulitis however because the patient's skin did not seem to be improving significantly to get a lower extremity MRI which was significant for large lobular peripherally enhancing fluid collection suspicious for abscess as well as osteomyelitis of the right fibular stump. Vascular surgery was consulted and performed a surgical I&D with drainage of significant pus. Infectious disease also consulted and recommended long-term IV antibiotics. The patient was agreeable to transfer to SNF for management. - Time Spent with Patient Total time spent providing and/or coordinating discharge services: - Discharge Medications Prescriptions: New CeFAZolin Syr 2,000MG/20 ML [Ancef Syringe 2,000 MG/20 ML] 2,000 mg IVPB Q8H 30 Days #90 syringe Continue Sertraline [Zoloft] 100 mg PO DAILY Omeprazole [PriLOSEC] 20 mg PO DAILY Insulin Aspart Prot/Insuln Asp [Novolog Mix 70-30 Vial] 80 unit SQ BID OxyCODONE/APAP 5/325 [Percocet 5/325 MG] 1 tab PO Q8H PRN 1 Days #3 tablet PRN Reason: Pain Home Medications: Sertraline [Zoloft] 100 mg PO DAILY 10/15/14 [History] Omeprazole [PriLOSEC] 20 mg PO DAILY 06/19/16 [History] Insulin Aspart Prot/Insuln Asp [Novolog Mix 70-30 Vial] 80 unit SQ BID 06/04/18 [History] CeFAZolin Syr 2,000MG/20 ML [Ancef Syringe 2,000 MG/20 ML] 2,000 mg IVPB Q8H 30 Days #90 syringe 06/11/18 [Rx] OxyCODONE/APAP 5/325 [Percocet 5/325 MG] 1 tab PO Q8H PRN 1 Days #3 tablet 06/11/18 [Rx] Allergies/Adverse Reactions: Allergy/AdvReac Type Severity Reaction Status Date / Time No Known Allergies Allergy Verified 06/04/18 09:52 Date of admission: 06/02/18 22:18 Primary care physician: Almas Ac Consults: 06/02/18 21:54 Consult to Physician [CONS] Routine Consulting Provider: Triston Mtz Reason for Consult: BKA stump cellulitis/?osteo Call Completed: Yes 06/06/18 08:16 Consult to Infectious Diseases [CONS] Routine Consulting Provider: Infectious Disease Avenue Reason for Consult: right stump osteomyelitis and concern for abscess Call Completed: Yes 06/06/18 17:32 Consult to Vascular Surgery [CONS] Routine Consulting Provider: Vascular Surgery Josefa Reason for Consult: abscess formation at stump site Call Completed: Yes 06/07/18 10:14 Consult to Slab Grinder [CONS] Routine Reason for SW Consult: concerned about returning home due to her right leg requiring further surgical interventions. 06/07/18 17:27 Consult to Occupational Therapy [CONS] Routine Comment: Evaluate, develop and implement POC Reason for Consult: Evaluate, develop and implement POC Does patient have active BEDREST order?: No Is patient medically & hemodynamically stable?: Yes Consult to Physical Therapy [CONS] Routine Comment: Evaluate, develop and implement POC Reason for Consult: Disposition planning. Therapy - weakness in bed. Does patient have active BEDREST order?: No Is patient medically & hemodynamically stable?: Yes 06/07/18 22:26 Consult to Wound Care [CONS] Routine Reason for Consult: Patient is status post I&D of right zonfm-gri-poer amputation abscess sites. These wounds were initially packed with Xeroform gauze dressing. Please evaluate for continued outpatient treatment and management via the wound clinic. Call Completed: No 06/10/18 14:21 Consult to Interventional Radiology [CONS] Routine Consulting Provider: Radiology Interventional Cols Reason for Consult: Paracentesis Call Completed: No Discharging clinician: Sergei Garcia Anticipated date of discharge: 06/11/18 - Constitutional Vitals: Temp Pulse Resp BP Pulse Ox 97.8 F 81 15 113/56 91 06/11/18 14:13 06/11/18 14:13 06/11/18 14:13 06/11/18 14:13 06/11/18 14:13 General appearance: Present: cooperative, A&O X 3, pleasant, no acute distress, answers questions appropriately Exam: Gen: NAD Neck: warm, supple Cardiac: RRR, no murmur, +S1/S2. No JVD noted. Pulmonary: CTA bilaterally, no wheezes, rales or rhonchi, equal chest expansion Abdomen: soft, moderate distension, normal bowel sounds, no tenderness, no guarding. Extremities: tenderness at the right stump site improved. Right stump edematous. 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 Psych: Appropriate mood and behavior. A&Ox3 - Patient Status Disposition: Transfer SNF Condition: Good Overall status at discharge: patient is progressing back to baseline - Discharge Instructions Follow Up With: Almas Ac DO [Primary Care Provider] - Kiana Carlos GALLERY OR MUSEUM GUIDE [Advanced Practice Nurse] - 06/27/18 1:45 pm Florentin Keating MD [Partnered Physician] - Additional Instructions: Follow up in wound care with Dr. Lenz next week. Please make appointment prior to d/c - Diet and Activity Activity: increase activity as tolerated, return to work once cleared by your PCP/specialist Diet: diabetic diet <Reta Teixeira - Last Filed: 06/11/18 20:47> Orders not resulted at time of discharge: Pending orders 06/07/18 21:50 Culture,Anaerobic [RM] Routine Date of Encounter: 06/11/18 - Discharge Diagnosis (1) Ascites Status: Chronic Qualifiers: Ascites type: other type Qualified Code(s): R18.8 - Other ascites (2) Diabetic ulcer of left foot Status: Chronic Qualifiers: Diabetic foot ulcer location: unspecified part of foot Diabetes mellitus type: type 2 Non-pressure ulcer stage: limited to breakdown of skin Qualified Code(s): E11.621 - Type 2 diabetes mellitus with foot ulcer; L97.521 - Non-pressure chronic ulcer of other part of left foot limited to breakdown of skin (3) Cellulitis Status: Acute Qualifiers: Site of cellulitis: other site Qualified Code(s): L03.818 - Cellulitis of other sites (4) IDDM (insulin dependent diabetes mellitus) Status: Chronic (5) GERD (gastroesophageal reflux disease) Status: Acute Qualifiers: Esophagitis presence: esophagitis presence not specified Qualified Code(s): K21.9 - Gastro-esophageal reflux disease without esophagitis (6) Depression Status: Acute Qualifiers: Depression Type: major depressive disorder Major depression recurrence: unspecified whether recurrent Major depression episode severity: unspecified Qualified Code(s): F32.9 - Major depressive disorder, single episode, unspecified (7) Abscess Status: Acute Hospital course: Ms. Anthony Cook is a 57 year old female - Time Spent with Patient Total time spent providing and/or coordinating discharge services: Date of admission: 06/02/18 22:18 Primary care physician: Almas Ac Consults: 06/02/18 21:54 Consult to Physician [CONS] Routine Consulting Provider: Triston Mtz Reason for Consult: BKA stump cellulitis/?osteo Call Completed: Yes 06/06/18 08:16 Consult to Infectious Diseases [CONS] Routine Consulting Provider: Infectious Disease Josefa Reason for Consult: right stump osteomyelitis and concern for abscess Call Completed: Yes 06/06/18 17:32 Consult to Vascular Surgery [CONS] Routine Consulting Provider: Vascular Surgery Josefa Reason for Consult: abscess formation at stump site Call Completed: Yes 06/07/18 10:14 Consult to Slab Grinder [CONS] Routine Reason for SW Consult: concerned about returning home due to her right leg requiring further surgical interventions. 06/07/18 17:27 Consult to Occupational Therapy [CONS] Routine Comment: Evaluate, develop and implement POC Reason for Consult: Evaluate, develop and implement POC Does patient have active BEDREST order?: No Is patient medically & hemodynamically stable?: Yes Consult to Physical Therapy [CONS] Routine Comment: Evaluate, develop and implement POC Reason for Consult: Disposition planning. Therapy - weakness in bed. Does patient have active BEDREST order?: No Is patient medically & hemodynamically stable?: Yes 06/07/18 22:26 Consult to Wound Care [CONS] Routine Reason for Consult: Patient is status post I&D of right rsozr-ijc-jlfe amputation abscess sites. These wounds were initially packed with Xeroform gauze dressing. Please evaluate for continued outpatient treatment and management via the wound clin ic. Call Completed: No 06/10/18 14:21 Consult to Interventional Radiology [CONS] Routine Consulting Provider: Radiology Interventional Cols Reason for Consult: Paracentesis Call Completed: No - Constitutional Vitals: Temp Pulse Resp BP Pulse Ox 97.8 F 81 15 113/56 91 06/11/18 14:13 06/11/18 14:13 06/11/18 14:13 06/11/18 14:13 06/11/18 14:13 - Attending Attestation I examined this patient and my medical decision-making was reviewed with the Resident Physician. I agree with the documented findings, disposition and treatment plan as described except to the extent set forth below.
--- NOTE | 2018-06-11 15:13 | Physician Discharge Referral ---
ExtendedCare Referral Info Provider in Charge: [facility] Provider in Charge after Transfer: PCP Institutional Level of Care: Skilled - Diagnosis (1) Abscess Priority: Primary Status: Acute (2) Cellulitis Priority: Primary Status: Acute (3) Ascites Priority: Secondary Status: Chronic (4) Diabetic ulcer of left foot Priority: Secondary Status: Chronic (5) IDDM (insulin dependent diabetes mellitus) Priority: Secondary Status: Chronic (6) GERD (gastroesophageal reflux disease) Priority: Secondary Status: Acute (7) Depression Priority: Secondary Status: Acute - Transfer Medications Prescriptions: CeFAZolin Syr 2,000MG/20 ML [Ancef Syringe 2,000 MG/20 ML] 2,000 mg IVPB Q8H 30 Days #90 syringe OxyCODONE/APAP 5/325 [Percocet 5/325 MG] 1 tab PO Q8H PRN 1 Days #3 tablet PRN Reason: Pain Home Medications: Sertraline [Zoloft] 100 mg PO DAILY 10/15/14 [History] Omeprazole [PriLOSEC] 20 mg PO DAILY 06/19/16 [History] Insulin Aspart Prot/Insuln Asp [Novolog Mix 70-30 Vial] 80 unit SQ BID 06/04/18 [History] CeFAZolin Syr 2,000MG/20 ML [Ancef Syringe 2,000 MG/20 ML] 2,000 mg IVPB Q8H 30 Days #90 syringe 06/11/18 [Rx] OxyCODONE/APAP 5/325 [Percocet 5/325 MG] 1 tab PO Q8H PRN 1 Days #3 tablet 06/11/18 [Rx] Allergies/Adverse Reactions: Allergy/AdvReac Type Severity Reaction Status Date / Time No Known Allergies Allergy Verified 06/04/18 09:52 - Respiratory Orders Smoking Cessation: Smoking cessation has been advised. For more information, call the [place] Tobacco Quit Line at 1-629-EOKT-NOW. - Ancillary Orders May use pressure relief devices daily prn - Advance Directives Living Will: No Power of Industrial Roofer for Health Care: No Code Status: Full Code - Mobility Orders Chair, Ambulate - Rehabiliation Orders Rehab Potential: Good Rehab Orders: ROM Exercises, Evaluation for Physical Therapy, Evaluation for Occupational Therapy - Treatments Skin tear care topically daily PRN per policy - Diet Orders No Concentrated Sweets CERTIFICATION: I certify that the transfer of the above named patient to an Extended Care Facility is necessary for the continuing treatment of the diagnosis listed. The above information is true and accurate reflection of patient's current condition. Confidential - Redisclosure prohibited without a patient's written consent.
--- NOTE | 2018-06-11 16:02 | Podiatry Progress Note ---
Date of Encounter: 06/11/18 Time of Encounter: 13:30 - Assessment and Plan (1) Cellulitis Current Visit: Yes Status: Acute Assessment: No erythema or edema noted to R BKA Does not extend past demarcation line No labs recently ESR 98, CRP 97 HGB A1C 11.7 Xray negative for OM Dressing in tact to R BKA No strike through noted Palpable popliteal artery Blood cultures negative, Anaerobic cultures negative Wound culture R BKA returned staph aureus Continue ATB per ID recommendations- appreciate input Plan: Continue ATB per ID Packed R BKA with iodaform gauze Covered with 4X4 dry gauze, kerlix, and HENRIK bandage Continue with dressing changes per vascular recommendations Nursing to change Qualifiers: Site of cellulitis: other site Qualified Code(s): L03.818 - Cellulitis of other sites (2) BKA stump complication Current Visit: No Status: Acute Assessment: See Above Plan: See above (3) Ulcer of left foot Current Visit: Yes Status: Chronic Assessment: Chronic Reyna stage 1 ulceration to left submetatarsal #1 Does not probe to bone Minimal serosanginous drainage noted No erythema, no edema, no streaking, no foul odor Hyperkeratotic tissue surrounding ulceration No recent lab work ESR 98, CRP 97 Blood cultures negative, anaerobic cultures negative Plan: Cleansed with 0.9 NS Covered with calcium alginate, 4x4 dry gauze, and medipore tape Follow up in wound care with Dr. Lenz. Please schedule appointment prior to d/c. Qualifiers: Non-pressure ulcer stage: limited to breakdown of skin Qualified Code(s): L97.521 - Non-pressure chronic ulcer of other part of left foot limited to b reakdown of skin Subjective Interval history: Patient awake sitting in bed. Alert and oriented x 3. Patient reports she is going to be discharged today or tomorrow, planning on ECF placement at this time. Denies fevers, chills, nausea, vomiting, or diarrhea. Denies calf pain, chest pain, or shortness of breath. No other questions or concerns at this time. Objective - Vital Signs Vital Signs: Vital Signs Temp Pulse Resp BP Pulse Ox 06/11/18 14:13 97.8 F 81 15 113/56 91 06/11/18 10:00 97.6 F 83 16 105/55 94 06/11/18 06:29 97.7 F 87 17 116/67 95 06/11/18 05:03 98.2 F 95 14 124/75 91 06/10/18 19:38 97.9 F 80 16 131/73 97 06/10/18 16:17 97.4 F L 86 17 132/66 94 Intake and Output 06/10/18 06/11/18 06/11/18 23:59 07:59 15:59 Intake Total 350 / 350 100 / 100 830 / 830 Output Total 0 / 0 1999 Balance 350 / 350 -1900 / -1900 830 / 830 Intake: IV Fluids 350 / 350 100 / 100 350 / 350 Zosyn 3.375 GM In 0.9 % Sodium 100 / 100 100 / 100 100 / 100 Chloride (Mini-Bag +) 100 ML @ 25 mls/hr IVPB Q8HR JULIEN Rx#: [id number] Vancocin 1,250 MG In 0.9 % 250 / 250 250 / 250 Sodium Chloride 250 ML @ 167 mls/hr IVPB Q12H JULIEN Rx#: [id number] Oral 0 / 0 0 / 0 480 / 480 Output: Urine 0 / 0 1999 Other: Meal Lunch Percent of Meal Consumed 100% Stool Size Moderate Moderate Stool Consistency loose formed formed Stool Color Brown Brown # Voids 3 # Bowel Movements 1 1 Blood Glucose* 203 369 241 - Exam Exam: Constitiutional: Alert and oriented x 3. Well nourished. No acute distress noted Vascular: 1/4 popliteal artery right, 1/4 DP/PT LLE, CFT <3 sec to all digits LLE, warm to warm from tibia to toes LLE, warm to touch RLE, R BKA Neurologic: Diminished sensation to touch, normal plantar response, abormal position sense dorsiflexion/plantar flexion Dermatologic: Reyna grade 1 ulcer left submetatarsal #1, Incision noted to lateral and medial aspect of R BKA, iodaform packing noted Musculoskeletal: 3/5 muscle strength LLE. - Lab Result Diagrams: 06/08/18 05:19 06/11/18 03:35 Labs: Abnormal lab results Hgb 10.7 g/dL (11.5-15.4) L 06/08/18 05:19 MCV 81.9 fL (83.0-100.0) L 06/08/18 05:19 MCH 24.3 pg (28.0-33.3) L 06/08/18 05:19 MCHC 29.6 g/dL (31.6-35.5) L 06/08/18 05:19 RDW 15.6 % (11.5-14.5) H 06/08/18 05:19 ESR 70 mm/hr (0-15) H 06/11/18 12:45 BUN 24 mg/dL (6-20) H 06/11/18 03:35 BUN/Creatinine Ratio 36 (6-26) H 06/11/18 03:35 Glucose 351 mg/dL (70-105) H 06/11/18 03:35 POC Glucose 241 mg/dL (70-99) H 06/11/18 11:09 Hemoglobin A1c 11.7 % (-5.6) H 06/02/18 22:15 AST 6 Units/L (13-39) L 06/03/18 06:22 ALT 6 Units/L (7-52) L 06/03/18 06:22 Alkaline Phosphatase 106 Units/L (34-104) H 06/03/18 06:22 C-Reactive Protein 65 mg/L (Less than 10) H 06/11/18 12:45 Serum Total Protein 6.3 g/dL (6.4-8.9) L 06/03/18 06:22 Albumin 3.2 g/dL (3.5-5.7) L 06/03/18 06:22 Albumin/Globulin Ratio 1.0 (1.1-2.2) L 06/03/18 06:22 Vancomycin Trough 14 mcg/mL (5-10) H 06/08/18 19:15 Microbiology, Last 48 Hours 06/07/18 21:50 Anaerobic Culture - Preliminary Right Leg At this time, no anaerobic growth is present. The culture will be finalized after 5 days of incubation. 06/07/18 21:50 Wound Culture - Final Right Leg Staphylococcus aureus Consult Discharge Plan - Plan Additional Instructions: Follow up in wound care with Dr. Lenz next week. Please make appointment prior to d/c Referrals: Almas Ac DO [Primary Care Provider] - Kiana Carlos, COLLEGE PHYSICS INSTRUCTOR [Advanced Practice Nurse] - 06/27/18 1:45 pm Florentin Keating MD [Partnered Physician] - Prescriptions: CeFAZolin Syr 2,000MG/20 ML [Ancef Syringe 2,000 MG/20 ML] 2,000 mg IVPB Q8H 30 Days #90 syringe OxyCODONE/APAP 5/325 [Percocet 5/325 MG] 1 tab PO Q8H PRN 1 Days #3 tablet PRN Reason: Pain
[2018-06-11] MEDS ORDERED: Insulin NPH/REG 70/30 100 UNIT/ML (x5UNIT) SQ SCH (16:30)
[2018-06-11] MEDS: traMADol 50 MG TABLET PO PRN (19:39)
--- NOTE | 2018-06-12 00:18 | Event Note ---
Date of Encounter: 06/11/18 Time of Encounter: 19:31 Alerted by patient's nurse Jameel that patient had received 80 units of 70/30 and BG dropped to 72. Day team increased dose to 85 units but 16:30 dose not given due to hypoglycemia. Next insulin dose tomorrow a.m. Contacted Dr. Teixeira w/recommendation to order 75 units 70/30 for next dose d/t pts. swings in BG. Nurse instructed to continue monitoring pt. closely and alert me immediately of any adverse changes.
[2018-06-12] MEDS: *HR* Heparin 5,000 UNIT/ML VIAL SQ SCH ×2 (06:16→17:25)
--- NOTE | 2018-06-12 06:24 | Internal Med Progress Note ---
<Sergei Garcia - Last Filed: 06/12/18 06:21> Hospitalist Progress Note - Encounter Date of Encounter: 06/12/18 - Exam Vitals: Temp Pulse Resp BP Pulse Ox 97.4 F L 83 16 114/64 90 06/12/18 03:58 06/12/18 03:58 06/12/18 03:58 06/12/18 03:58 06/12/18 03:58 Exam: Gen: NAD Neck: warm, supple Cardiac: RRR, no murmur, +S1/S2. No JVD noted. Pulmonary: CTA bilaterally, no wheezes, rales or rhonchi, equal chest expansion Abdomen: soft, moderate distension, normal bowel sounds, no tenderness, no guarding. Extremities: tenderness at the right stump site improved. Right stump edematous. 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 Psych: Appropriate mood and behavior. A&Ox3 - Assessment and Plan (1) Cellulitis Status: Acute Assessment and Plan: Presented with right edema and pain of the right stump. Remained afebrile and normotensive overnight. She follows with podiatry on a regular basis due to worsening of her symptoms she presented to the ED 2 days ago. Podiatry has been consulted and recommending medical management. Her CRP was elevated at 233 on 9 repeat CRP on 06/04/18 was 97. She had an x-ray of the right lower leg which did not show findings of osteo myelitis. Her ESR was 120 at presentation repeat was, Now 70 -Continue home Percocet for pain control -MRI of the right leg shows abscess formation at the tibial and fibular region as well as concern for osteomyelitis -Infectious disease following (2) Ascites Status: Chronic Assessment and Plan: Occurs frequently and patient often needs paracentesis. Paracentesis yesterday drained ~1250 (3) Diabetic ulcer of left foot Status: Chronic Assessment and Plan: History of left plantar aspect ulcer. There was some blood noted under the dressing. Podiatry is consult has daily dressing changes (4) IDDM (insulin dependent diabetes mellitus) Status: Chronic Assessment and Plan: History of uncontrolled diabetes is on insulin at home. Continue Novolog 70-30 Patient has periods of hypoglycemia, titrating insulin dose accordingly Currently 75U BID (5) GERD (gastroesophageal reflux disease) Status: Acute Assessment and Plan: Continue omeprazole (6) Depression Status: Acute Assessment and Plan: Continue home sertraline (7) Abscess Status: Acute Assessment and Plan: Presented with right stump erythema and tenderness. MRI of the right leg showed large lobular fluid collection 5.8 x 3.1 x 3.8 cm in the soft tissues distal to the tibial stump as well as smaller fluid collection distal to the fibular stump 1 x 0.9 x 0.6 cm fluid collection in the soft tissues. Transitioned to Ancef per ID recs S/P I&D, anaerobic cultures pending DVT Prophylaxis: Heparin subcutaneous every 12 hours - Time Spent with Patient Total time spent is greater than 50% in coordination of care (as documented) at patient's floor/unit and/or counseling patient: Internal Medicine: Result - Labs CBC & Chem 7: 06/08/18 05:19 06/11/18 03:35 - Impressions Impressions Paracentesis Ultrasound 06/11/18 08:42 IMPRESSION: Successful ultrasound guided paracentesis. D/ / Faizan Bhatia MD / Faizan Bhatia MD Interpreting Provider: Faizan Bhatia MD Consult Discharge Plan - Plan Additional Instructions: Follow up in wound care with Dr. Lenz next week. Please make appointment prior to d/c Referrals: Almas Ac DO [Primary Care Provider] - Kiana Carlos CANE BURNER [Advanced Practice Nurse] - 06/27/18 1:45 pm Florentin Keating MD [Partnered Physician] - Prescriptions: CeFAZolin Syr 2,000MG/20 ML [Ancef Syringe 2,000 MG/20 ML] 2,000 mg IVPB Q8H 30 Days #90 syringe <Reta Teixeira - Last Filed: 06/12/18 23:45> Hospitalist Progress Note - Encounter Date of Encounter: 06/12/18 Time of Encounter: 09:00 - Exam Vitals: Temp Pulse Resp BP Pulse Ox 97.7 F 91 15 107/61 92 06/12/18 09:50 06/12/18 09:50 06/12/18 09:50 06/12/18 09:50 06/12/18 09:50 - Assessment and Plan (1) Ascites Status: Chronic (2) Diabetic ulcer of left foot Status: Chronic (3) Cellulitis Status: Acute (4) IDDM (insulin dependent diabetes mellitus) Status: Chronic (5) GERD (gastroesophageal reflux disease) Status: Acute (6) Depression Status: Acute (7) Abscess Status: Acute - Time Spent with Patient Total time spent is greater than 50% in coordination of care (as documented) at patient's floor/unit and/or counseling patient: Internal Medicine: Result - Labs CBC & Chem 7: 06/08/18 05:19 06/11/18 03:35 - Attending Attestation I examined this patient and my medical decision-making was reviewed with the Resident Physician. I agree with the documented findings, disposition and treatment plan as described except to the extent set forth below. Date of discharge 06/12/2018 <Sergei Garcia - Last Filed: 06/12/18 06:21> (1) Cellulitis Qualifiers: Site of cellulitis: other site Qualified Code(s): L03.818 - Cellulitis of other sites (2) Ascites Qualifiers: Ascites type: other type Qualified Code(s): R18.8 - Other ascites (3) Diabetic ulcer of left foot Qualifiers: Diabetic foot ulcer location: unspecified part of foot Diabetes mellitus type: type 2 Non-pressure ulcer stage: limited to breakdown of skin Qualified Code(s): E11.621 - Type 2 diabetes mellitus with foot ulcer; L97.521 - Non-pre ssure chronic ulcer of other part of left foot limited to breakdown of skin (5) GERD (gastroesophageal reflux disease) Qualifiers: Esophagitis presence: esophagitis presence not specified Qualified Code(s): K21.9 - Gastro-esophageal reflux disease without esophagitis (6) Depression Qualifiers: Depression Type: major depressive disorder Major depression recurrence: unspecified whether recurrent Major depression episode severity: unspecified Qualified Code(s): F32.9 - Major depressive disorder, single episode, unspecified <Reta Teixeira - Last Filed: 06/12/18 23:45> (1) Ascites Qualifiers: Ascites type: other type Qualified Code(s): R18.8 - Other ascites (2) Diabetic ulcer of left foot Qualifiers: Diabetic foot ulcer location: unspecified part of foot Diabetes mellitus type: type 2 Non-pressure ulcer stage: limited to breakdown of skin Qualified Code(s): E11.621 - Type 2 diabetes mellitus with foot ulcer; L97.521 - Non- pressure chronic ulcer of other part of left foot limited to breakdown of skin (3) Cellulitis Qualifiers: Site of cellulitis: other site Qualified Code(s): L03.818 - Cellulitis of other sites (5) GERD (gastroesophageal reflux disease) Qualifiers: Esophagitis presence: esophagitis presence not specified Qualified Code(s): K21.9 - Gastro-esophageal reflux disease without esophagitis (6) Depression Qualifiers: Depression Type: major depressive disorder Major depression recurrence: unspecified whether recurrent Major depression episode severity: unspecified Qualified Code(s): F32.9 - Major depressive disorder, single episode, unspecified
[2018-06-12] MEDS: Insulin NPH/REG 70/30 100 UNIT/ML (x5UNIT) SQ SCH (07:32)
[2018-06-12] MEDS: *HR* OxyCODONE/APAP 5/325 TABLET PO PRN ×3 (07:33→17:24)
[2018-06-12 09:54] VITALS: BP 107/61
--- NOTE | 2018-06-12 11:12 | Infectious Disease Progress No ---
Date of Encounter: 06/12/18 Time of Encounter: 11:10 - Assessment and Plan (1) Abscess of right lower extremity Current Visit: Yes Status: Acute Location: Right BKA stump. Causative organism: MSSA MRI of the right stump shows a large globular peripherally enhancing fluid collection measuring approximately 5.8 x 3.1 x 3.8 cm in the soft tissues distal to the tibial stump compatible with an abscess as well as a smaller separate 1 x 0.9 x 0.6 and an air-fluid collection soft tissues distal to the fibular stump also compatible with an abscess. Likely secondary to chronic nonhealing ulceration. ESR elevated at 120 with a CRP of 233. Improved since being on IV antibiotics. Podiatry consulted and following. Vascular surgery consulted. Status post I & D right stump 06/07/[address] Keating. Operative note reviewed. Intra-op findings discussed with Dr. Keating. States infection very close to bone. Intra-op cultures as above. Currently on Ancef. Recommendations: Wound care and dressing changes per the podiatry team. Continue Ancef 2 grams IV Q8H. Duration of treatment depends on the clinical picture, but likely 2-6 weeks. Monitor renal function for drug toxicity and dose adjust antibiotics. client services administrator to assist with discharge planning. Consult VAT to switch out EPIV for midline. Will need weekly CBC, BUN/Cr, ESR, CRP. Will need weekly IV care per protocol. Follow up with ID 06/27/18 at 1345. (2) Osteomyelitis Current Visit: No Status: Suspected Suspected. Location: Right tibial stump. Reactive osteitis vs. early OM. ESR and CRP very elevated. High index of suspicion for OM. Vascular surgery consulted. Status post I & D. No obvious bone infection noted intra-op, but pus was very close to the bone. Currently on IV ancef. Qualifiers: Osteomyelitis type: chronic multifocal Osteomyelitis location: foot Laterality: right Qualified Code(s): M86.371 - Chronic multifocal osteomyelitis, right ankle and foot (3) Cellulitis Current Visit: Yes Status: Acute Location: Right stump. Causative organism: Intra-op cultures positive for MSSA. Currently on IV Ancef. Qualifiers: Site of cellulitis: other site Qualified Code(s): L03.818 - Cellulitis of other sites (4) Hemangioma of liver Current Visit: No Status: Chronic (5) Insulin dependent diabetes mellitus Current Visit: No Status: Chronic Hemoglobin A1c 11.7%. Recommend aggressive glucose monitoring and control to promote wound healing and prevent reinfection. Management per the primary team. 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 No acute events noted overnight. Patient states overall she feels okay. Denies any fevers or chills or rigors. Denies chest pain, shortness of breath, or cough. Denies nausea, vomiting, diarrhea, or constipation. Denies abdominal pain or urinary complaints. Denies any oral thrush or new skin lesions. Reports minimal pain at the surgical site. Infect Dis PN-Objective Data - Labs CBC & Chem 7: 06/08/18 05:19 06/11/18 03:35 Labs: Laboratory Results - last 24 hr 06/10/18 06/10/18 06/10/18 11:09 16:19 16:20 ESR POC Glucose 153 H 52 L 51 L C-Reactive Protein 06/10/18 06/11/18 06/11/18 21:53 11:09 12:45 ESR 70 H POC Glucose 203 H 241 H C-Reactive Protein 06/11/18 06/11/18 06/11/18 12:45 16:28 23:38 ESR POC Glucose 72 102 H C-Reactive Protein 65 H Cultures: Cultures 06/07/18 21:50 Anaerobic Culture - Preliminary Right Leg At this time, no anaerobic growth is present. The culture will be finalized after 5 days of incubation. 06/07/18 21:50 Wound Culture - Final Right Leg Staphylococcus aureus 06/07/18 21:50 Gram Stain - Final Right Leg 06/02/18 22:15 Blood Culture - Final Peripheral Venipuncture No growth. Final report. 06/02/18 22:10 Blood Culture - Final Peripheral Venipuncture No growth. Final report. - Impressions Impressions Paracentesis Ultrasound 06/11/18 08:42 IMPRESSION: Successful ultrasound guided paracentesis. D/ / Fiazan Bhatia MD / Faizan Bhatia MD Interpreting Provider: Faizan Bhatia MD Exam - Constitutional Vitals: Temp Pulse Resp BP Pulse Ox 97.7 F 91 15 107/61 92 06/12/18 09:50 06/12/18 09:50 06/12/18 09:50 06/12/18 09:50 06/12/18 09:50 General appearance: average body habitus, cooperative, no acute distress - Head Head exam: Present: atraumatic, normal inspection, normocephalic - Eye Eye exam: Present: EOMI, normal appearance, PERRL Pupils: Present: normal accommodation - ENT ENT exam: Present: mucous membranes moist - Neck Neck exam: Present: normal inspection - Respiratory Respiratory exam: Present: CTAB. Absent: rales, respiratory distress, rhonchi, wheezes - Cardiovascular Cardiovascular exam: Present: RRR, +S1, +S2 - GI/Abdominal GI/Abdominal exam: Present: distended, normal bowel sounds, soft. Absent: tenderness - Extremities Exam Extremities exam: Absent: joint swelling, normal inspection (Right BKA stump dressing C/D/I.), pedal edema, tenderness - Neurological Exam Neurological exam: Present: alert, oriented X3, no focal deficits - Psychiatric Psychiatric exam: Present: normal affect, normal mood - Skin Skin exam: Present: dry, intact, normal color, warm Consult Discharge Plan - Plan Additional Instructions: Follow up in wound care with Dr. Lenz next week. Please make appointment prior to d/c Referrals: Almas Ac DO [Primary Care Provider] - Kiana Carlos PRECAST MOLDER [Advanced Practice Nurse] - 06/27/18 1:45 pm Florentin Keating MD [Partnered Physician] - Prescriptions: CeFAZolin Syr 2,000MG/20 ML [Ancef Syringe 2,000 MG/20 ML] 2,000 mg IVPB Q8H 30 Days #90 syringe - Attending Attestation I have personally performed a face to face evaluation on this patient. I have reviewed and agree with the care plan. History and Exam by me shows: Assessment and plan: 1.Abscess of right lower extremity - 5.8 x 3.1 x 3.8 cm . Causative organism not clear 2.Osteomyelitis 3.Insulin-dependent diabetes mellitus 4.Hypertension 5.Depression Recommendations: s/p I&D; intra op culture MSSA will d/c on 6 weeks of cefazolin weekly cbc, bun/cr, esr, crp
[2018-06-12] MEDS ORDERED: Insulin NPH/REG 70/30 100 UNIT/ML (x5UNIT) SQ STA (12:21)
[2018-06-12] MEDS ORDERED: Insulin NPH/REG 70/30 100 UNIT/ML (x5UNIT) SQ SCH (16:30)
== END 2018-06-12 18:45 | DRG 501 ==
LOC: 3ANU 14:33 → EMEROOARM 14:33 → 3ANU 19:57 → SUATTDRO 22:18
PROVIDERS: ADMIT Family Medicine; ATTEND Student in an Organized Health Care Education/Training Program

== ENCOUNTER 2018-07-09 10:23 | Observation (INO) ==
--- NOTE | 2018-07-09 11:23 | Emergency Department Note ---
Disposition Clinical Impression: Pleural effusion, right Disposition: Admitted As Inpatient Condition: Good Time of Disposition: 13:01 General Adult HPI - General Chief complaint: ED General Medical Stated complaint: Fluid retention Time Seen by Provider: 07/09/18 11:09 Source: patient Limitations: no limitations Nursing Notes Reviewed: Yes Vital Signs Reviewed: Yes - History of Present Illness HPI Narrative: Female patient presenting to emergency department after being sent here by her primary care physician. She does have a right lower extremity indication secondary to nerve damage and infection that occurred approximately 6 years ago however over the past 2 months she had to be admitted for a abscess to be drained on her stump. She was placed on IV antibiotics. She has been using these at home. She does have a left-sided PICC. She reports that over the past couple days she has been having a cough. She denies any soreness of breath. She denies any chest pain. The home health nurse did assess her lung sounds and stated that she had some crackles so a chest x-ray was done on the . This did show a pleural effusions that she was sent to the ER today. Pain Scale: 4 - Related Data Home Medications Medication Instructions Recorded Confirmed Sertraline [Zoloft] 100 mg PO DAILY 10/15/14 07/09/18 Omeprazole [PriLOSEC] 20 mg PO DAILY 06/19/16 07/09/18 OxyCODONE/APAP 5/325 [Percocet 5 mg PO Q8HR PRN 06/18/18 07/09/18 5/325 MG] Cefazolin Sodium/Water [Cefazolin 2 gm IV TID 06/19/18 07/09/18 2 G/20 ml-Water Syrg] Insulin Aspart Prot/Insuln Asp 80 unit SQ BIDWM 06/19/18 07/09/18 [Novolog Mix 70-30 Vial] Previous Rx's Medication Instructions Recorded Furosemide [Lasix] 40 mg PO DAILY 30 Days #60 06/22/18 levoFLOXacin [Levaquin] 500 mg PO DAILY 5 Days #5 tablet 07/10/18 Allergies Allergy/AdvReac Type Severity Reaction Status Date / Time No Known Allergies Allergy Verified 06/04/18 09:52 Past Medical History - Past Medical History Medical history: Reports: diabetes, GERD Surgical history: Reports: cholecystectomy, other Psychiatric history: Reports: anxiety, depression FINISHING ROOM OPERATOR history: Reports: no FINISHING ROOM OPERATOR history - Social History Smoking Status: Former smoker Smokeless Tobacco Status: No Alcohol use: Reports: none Drug use: Reports: none Physical Exam - General Limitations: no limitations General appearance: alert Course Course Narrative: Patient appears well and is not hypoxic. We did repeat the labs as well as her chest x-ray. It showed minimal interval change of this pleural effusion. My concern is the previous x-ray was read as a possible underlying pneumonia. She is currently on IV antibodies. Again she is not hypoxic. She is not tachycardic. She is not febrile. However after drainage patient may need repeat imaging to ensure that there is no underlying pneumonia that she will need her antibiotics changed with. Patient appears well here. She was noted to be hypoglycemic states that she took her insulin this morning and did not eat that she did drink an Atkins shake. She states she normally does this however her glucose dropped today. She is tolerating by mouth food at this time. We will repeat her glucose. - Consultations Consultation #1: I spoke with Dr Doshi, he is agreeable to see the patient on the floor. Time: 12:43 Consultation #2: Dr Henderson accepted Pt in stable condition. Time: 12:59 Vital Signs Temperature 98.3 F 07/09/18 10:25 Pulse Rate 90 07/09/18 10:25 Respiratory Rate 18 07/09/18 10:25 Blood Pressure 164/77 07/09/18 10:25 O2 Sat by Pulse Oximetry 94 07/09/18 10:25 Temperature 98.3 F 07/09/18 10:25 Pulse Rate 90 07/09/18 10:25 Respiratory Rate 18 07/09/18 10:25 Blood Pressure 164/77 07/09/18 10:25 O2 Sat by Pulse Oximetry 94 07/09/18 10:25 Oxygen Delivery Oxygen Delivery Room Air Medical Decision Making - Medical Records Medical records reviewed: Yes I reviewed the patient's medical records. - Lab Data Lab results reviewed: Yes I reviewed the patient's lab results. Result diagrams: 07/10/18 04:15 07/10/18 04:15 Lab Results 07/09/18 07/09/18 07/09/18 Range/Units 11:28 11:42 11:42 WBC 10.9 D (4.3-11.1) K/mcL RBC 4.94 (3.82-4.97) M/mcL Hgb 11.9 (11.5-15.4) g/dL Hct 39.8 (35.3-44.9) % MCV 80.6 L (83.0-100.0) fL MCH 24.1 L (28.0-33.3) pg MCHC 29.9 L (31.6-35.5) g/dL RDW 16.3 H (11.5-14.5) % Plt Count 258 (140-400) K/mcL MPV 9.7 (9.4-12.4) fL Immature Gran % 1.3 (0-4) % Seg Neutrophils % 66.0 % Lymphocytes % 24.0 % Monocytes % 5.9 % Eosinophils % 2.6 % Basophils % 0.2 % Neutrophils # 7.2 (1.6-8.9) K/mcL Lymphocytes # 2.6 (0.6-4.6) K/mcL Monocytes # 0.6 (0.0-1.3) K/mcL Eosinophils # 0.3 (0.0-0.6) K/mcL Basophils # 0.0 (0.0-0.2) K/mcL PT (9.4-12.1) Seconds INR Sodium 143 (136-145) mEq/L Potassium 3.6 (3.5-5.1) mEq/L Chloride 103 (98-107) mEq/L Carbon Dioxide 31 H (23-29) mEq/L BUN 16 (6-20) mg/dL Creatinine 0.42 L (0.60-1.20) mg/dL Est GFR ( Amer) > 60 (> 60) Est GFR (Non-Af Amer) > 60 (> 60) BUN/Creatinine Ratio 38 H (6-26) Glucose 39 L* (70-105) mg/dL Calculated Osmolality 294 (280-300) Lactic Acid (0.5-2.2) mmol/L Calcium 8.9 (8.6-10.3) mg/dL Total Bilirubin 0.7 (0.3-1.0) mg/dL AST 11 L (13-39) Units/L ALT 4 L (7-52) Units/L Alkaline Phosphatase 107 H (34-104) Units/L Troponin I < 0.03 (< 0.04) ng/mL B-Natriuretic Peptide (Less than 100) pg/mL Serum Total Protein 6.6 (6.4-8.9) g/dL Albumin 3.9 (3.5-5.7) g/dL Globulin 2.7 (2.4-3.5) g/dL Albumin/Globulin Ratio 1.4 (1.1-2.2) Urine Color Yellow (Yellow) Urine Clarity Clear (Clear) Urine pH 6.0 (5.0-8.0) pH Units Ur Specific [place] 1.026 H (1.010-1.025) Urine Protein 100 H (Neg-Trace) mg/dL Urine Glucose (UA) Normal (Normal) mg/dL Urine Ketones Negative (Negative) mg/dL Urine Blood Small H (Negative) Urine Nitrite Negative (Negative) Urine Bilirubin Negative (Negative) Urine Urobilinogen Normal (Normal) mg/dL Ur Leukocyte Esterase Negative (Negative) Urine Microscopic RBC 15-30 H (0-3) per hpf Urine Microscopic WBC 0-3 (0-3) per hpf Ur Squamous Epith Cells Many H (None-Few) per lpf Urine Bacteria None Seen (None-Few) per hpf Hyaline Casts None Seen (None-Few) per lpf Ur Culture Indicated? NO (NO) 07/09/18 07/09/18 07/09/18 Range/Units 11:42 11:42 11:42 WBC (4.3-11.1) K/mcL RBC (3.82-4.97) M/mcL Hgb (11.5-15.4) g/dL Hct (35.3-44.9) % MCV (83.0-100.0) fL MCH (28.0-33.3) pg MCHC (31.6-35.5) g/dL RDW (11.5-14.5) % Plt Count (140-400) K/mcL MPV (9.4-12.4) fL Immature Gran % (0-4) % Seg Neutrophils % % Lymphocytes % % Monocytes % % Eosinophils % % Basophils % % Neutrophils # (1.6-8.9) K/mcL Lymphocytes # (0.6-4.6) K/mcL Monocytes # (0.0-1.3) K/mcL Eosinophils # (0.0-0.6) K/mcL Basophils # (0.0-0.2) K/mcL PT 13.4 H (9.4-12.1) Seconds INR 1.2 Sodium (136-145) mEq/L Potassium (3.5-5.1) mEq/L Chloride (98-107) mEq/L Carbon Dioxide (23-29) mEq/L BUN (6-20) mg/dL Creatinine (0.60-1.20) mg/dL Est GFR ( Amer) (> 60) Est GFR (Non-Af Amer) (> 60) BUN/Creatinine Ratio (6-26) Glucose (70-105) mg/dL Calculated Osmolality (280-300) Lactic Acid 1.0 (0.5-2.2) mmol/L Calcium (8.6-10.3) mg/dL Total Bilirubin (0.3-1.0) mg/dL AST (13-39) Units/L ALT (7-52) Units/L Alkaline Phosphatase (34-104) Units/L Troponin I (< 0.04) ng/mL B-Natriuretic Peptide 222 H (Less than 100) pg/mL Serum Total Protein (6.4-8.9) g/dL Albumin (3.5-5.7) g/dL Globulin (2.4-3.5) g/dL Albumin/Globulin Ratio (1.1-2.2) Urine Color (Yellow) Urine Clarity (Clear) Urine pH (5.0-8.0) pH Units Ur Specific [place] (1.010-1.025) Urine Protein (Neg-Trace) mg/dL Urine Glucose (UA) (Normal) mg/dL Urine Ketones (Negative) mg/dL Urine Blood (Negative) Urine Nitrite (Negative) Urine Bilirubin (Negative) Urine Urobilinogen (Normal) mg/dL Ur Leukocyte Esterase (Negative) Urine Microscopic RBC (0-3) per hpf Urine Microscopic WBC (0-3) per hpf Ur Squamous Epith Cells (None-Few) per lpf Urine Bacteria (None-Few) per hpf Hyaline Casts (None-Few) per lpf Ur Culture Indicated? (NO) - Radiology Data Radiology results reviewed: Yes I reviewed the patient's radiology results. Chest X-Ray 07/09/18 11:21 IMPRESSION: Minimal improved appearance of the right pleural effusion. Otherwise, no change. D/ / 07/09/2018 12:25:17 Lee Silva MD / gerri Interpreting Provider: Lee Silva MD - EKG Data EKG #1 EKG attestation: Yes I reviewed and interpreted this EKG. EKG results narrative: Normal sinus rhythm at a rate of 91. W[place] interval is 147. QRS duration is 99. QT is 476. QTC is 586. No signs of acute ischemia. Good R-wave progression. No significant change from previous EKG dated 06/18/2018. Attestation Statement - Attestation Attestation: Resident Attestation: I examined this patient and my medical decision making was reviewed with the Resident Physician. I agree with the documented findings, disposition and treatment plan as described except to the extent set forth below. We independently had [id number] contact with the patient. Patient presenting for associated shortness of breath. X-ray concerning for pleural effusion. Patient with previous thoracentesis earlier this year. Given the patient's symptoms patient will be admitted for further removal of fluid and investigation. Resting comfortable in bed with no acute distress, decreased breath sounds to the right with associated Rales, abdomen soft nontender palpation without guarding or rebound.
[2018-07-09 11:41] LABS: Bilirubin,Urine Negative (Negative); Blood,Urine Small (Negative); Clarity,Urine Clear (Clear); Color,Urine Yellow (Yellow); Glucose,Urine (UA) Normal (Normal); Ketones,Urine Negative (Negative); Leukocyte Esterase,Urine Negative (Negative); Nitrite,Urine Negative (Negative); Protein,Urine 100 mg/dL (Neg-Trace); Specific Gravity,Urine 1.026 (1.010-1.025); Urobilinogen,Urine Normal (Normal)
[2018-07-09 11:43] LABS: Bacteria,Urine None Seen per hpf (None-Few); Hyaline Casts,Urine None Seen per lpf (None-Few); RBC,Urine 15-30 per hpf (0-3); Squamous Epithelial Cell,Urine Many per lpf (None-Few); WBC,Urine 0-3 per hpf (0-3)
[2018-07-09 12:00] LABS: Basophils % 0.2 %; Eosinophils # 0.3 K/mcL (0.0-0.6); Eosinophils % 2.6 %; Hematocrit 39.8 % (35.3-44.9); Hemoglobin 11.9 g/dL (11.5-15.4); Immature Granulocytes % 1.3 % (0-4); Lymphocytes # 2.6 K/mcL (0.6-4.6); Mean Corpuscular HGB Conc 29.9 g/dL (31.6-35.5); Mean Corpuscular Hemoglobin 24.1 pg (28.0-33.3); Mean Corpuscular Volume 80.6 fL (83.0-100.0); Mean Platelet Volume 9.7 fL (9.4-12.4); Monocytes # 0.6 K/mcL (0.0-1.3); Monocytes % 5.9 %; Neutrophils # 7.2 K/mcL (1.6-8.9); Platelet Count 258 K/mcL (140-400); Red Blood Count 4.94 M/mcL (3.82-4.97); Red Cell Distribution Width 16.3 % (11.5-14.5)
[2018-07-09 12:08] LABS: INR 1.2; Prothrombin Time 13.4 Seconds (9.4-12.1)
[2018-07-09 12:28] LABS: Alanine Aminotransferase 4 Units/L (7-52); Albumin 3.9 g/dL (3.5-5.7); Albumin/Globulin Ratio 1.4 (1.1-2.2); Alkaline Phosphatase 107 Units/L (34-104); Aspartate Amino Transferase 11 Units/L (13-39); BUN/Creatinine Ratio 38 (6-26); Bilirubin,Total 0.7 mg/dL (0.3-1.0); Blood Urea Nitrogen 16 mg/dL (6-20); Calcium 8.9 mg/dL (8.6-10.3); Carbon Dioxide 31 mEq/L (23-29); Chloride 103 mEq/L (98-107); Globulin 2.7 g/dL (2.4-3.5); Glucose 39 mg/dL (70-105); Osmolality,Calculated 294 (280-300); Potassium 3.6 mEq/L (3.5-5.1); Sodium 143 mEq/L (136-145); Total Protein 6.6 g/dL (6.4-8.9); Troponin I < 0.03 ng/mL (< 0.04); eGFR For Non-African Americans > 60 (> 60)
[2018-07-09] MEDS ORDERED: Naloxone 0.4 MG/ML INJ IVP PRN (13:27)
[2018-07-09] MEDS ORDERED: *HR* OxyCODONE/APAP 5/325 TABLET PO PRN (14:46)
[2018-07-09] MEDS ORDERED: Dextrose Gel 15 GM/37.5 ML TUBE PO PRN ×2 (14:50)
[2018-07-09] MEDS ORDERED: *HR* Dextrose 50 % in Water (Syg) 50 ML SYRINGE IVP PRN (14:50)
[2018-07-09] MEDS ORDERED: D5% in Water 1,000 ML IVC PRN (14:50)
[2018-07-09] MEDS ORDERED: [UNRECOGNIZED DRUG - OTHER] IV SCH (15:00)
[2018-07-09] MEDS ORDERED: WATER IV SCH (15:00)
[2018-07-09] MEDS ORDERED: CEFAZOLIN SODIUM IV SCH (15:00)
[2018-07-09 15:01] LABS: Lactate Dehydrogenase 144 Units/L (140-271)
--- NOTE | 2018-07-09 15:44 | Pulmonology Consult Note ---
Date of Encounter: 07/09/18 Time of Encounter: 15:00 Assessment and Plan (1) Pleural effusion, right Current Visit: Yes Status: Chronic This patient was seen in the emergency room and discussed the plan of care with a physician. Patient has pleural effusion and a right side and she was already treated and interventional radiologist has done thoracentesis. Patient stated she is feeling better after thoracentesis and fluid needs to be sent for analys is and chest x-ray for tomorrow. It is important to see if this is transudative or exudative effusion. Hopefully will have some answers for this recurrent pleural effusion. It is not clear at this time if this is related to pneumonia or some other causes. We might need to have a CT chest, Thanks for the consultation and will continue follow up. History of Present Illness Consult date: 07/09/18 Requesting physician: Kim Gerenwood Reason for consult: pleural effusion Chief complaint: Cough and abnormal CXR History of present illness: This is a pleasant 57 year old female with history of recurrent pleural effusion. I was called by ER physician to evaluate this patient and when I saw the patient, she had already had thoracentesis and she stated she was feeling better. She stated she had this before and she denies any history of CHF or liver failure and she stated she has liver hemangioma and she thinks it might be related to that. She stated she had non-productive cough for about 1 wek and she denies any fever or chills and she thinks it might be related to her liver. She had CXR as outpatient and she was referred to ER to have it drained. She denies any history of asbestos exposure and she denies any significant chest pain. Past Med Surg Social Fam HX - Past Medical History Medical history: diabetes, GERD Additional medical history: hemangioma on liver. Psychiatric history: anxiety, depression - Past Surgical History Surgical History: cholecystectomy, other Additional surgical history: Right BKA - Social History Smoking Status: Former smoker Smokeless Tobacco Status: No Alcohol use: none Drug use: none - Family History Mother Living Status: Hx Family Cardiac Disorders: Yes Hx Family Respiratory Disorders: No Hx Family Cancer: Yes Hx Family GI Disorders: No Hx Family Endocrine Disorder: No Hx Family Neuromuscular Disorders: No Hx Family Neurologic Disorders: No Hx Family HEENT Disorders: No Hx Family Autoimmune Disorders: No Father Living Status: Hx Family Cardiac Disorders: Yes Hx Family Endocrine Disorder: Yes Medications and Allergies Sertraline [Zoloft] 100 mg PO DAILY 10/15/14 [History] Omeprazole [PriLOSEC] 20 mg PO DAILY 06/19/16 [History] OxyCODONE/APAP 5/325 [Percocet 5/325 MG] 5 mg PO Q8HR PRN 06/18/18 [History] Cefazolin Sodium/Water [Cefazolin 2 G/20 ml-Water Syrg] 2 gm IV TID 06/19/18 [History] Insulin Aspart Prot/Insuln Asp [Novolog Mix 70-30 Vial] 80 unit SQ BIDWM 06/19/18 [History] Furosemide [Lasix] 40 mg PO DAILY 30 Days #60 06/22/18 [Rx] Allergy/AdvReac Type Severity Reaction Status Date / Time No Known Allergies Allergy Verified 06/04/18 09:52 All Systems: The remainder of the systems were reviewed and are negative Physical Examination Vital Signs: Vital Signs, Last 4 Hours Temp Pulse Resp BP Pulse Ox 07/09/18 15:20 97.7 F 88 16 137/74 90 07/09/18 14:44 86 16 128/62 97 General appearance: no acute distress Eyes: nonicteric ENT: oropharynx moist Neck: supple Effort: normal Inspection: normal Auscultation: left: rhonchi, right: diminished breath sounds Percussion: right: dull Cardiovascular: regular rate and rhythm Gastrointestinal: normoactive bowel sounds, non-distended Extremities: no cyanosis, other (right BKA amputation) normal mental status, non-focal exam mood appropriate Results - Laboratory Findings CBC and BMP: 07/09/18 11:42 07/09/18 11:42 PT/INR, D-dimer PT 13.4 Seconds (9.4-12.1) H 07/09/18 11:42 Abnormal lab findings: Abnormal lab results MCV 80.6 fL (83.0-100.0) L 07/09/18 11:42 MCH 24.1 pg (28.0-33.3) L 07/09/18 11:42 MCHC 29.9 g/dL (31.6-35.5) L 07/09/18 11:42 RDW 16.3 % (11.5-14.5) H 07/09/18 11:42 PT 13.4 Seconds (9.4-12.1) H 07/09/18 11:42 Carbon Dioxide 31 mEq/L (23-29) H 07/09/18 11:42 0.42 mg/dL (0.60-1.20) L 07/09/18 11:42 38 (6-26) H 07/09/18 11:42 Glucose 39 mg/dL (70-105) L* 07/09/18 11:42 AST 11 Units/L (13-39) L 07/09/18 11:42 ALT 4 Units/L (7-52) L 07/09/18 11:42 107 Units/L (34-104) H 07/09/18 11:42 B-Natriuretic Peptide 222 pg/mL (Less than 100) H 07/09/18 11:42 Ur Specific [place] 1.026 (1.010-1.025) H 07/09/18 11:28 100 mg/dL (Neg-Trace) H 07/09/18 11:28 Small (Negative) H 07/09/18 11:28 15-30 per hpf (0-3) H 07/09/18 11:28 Ur Squamous Epith Cells Many per lpf (None-Few) H 07/09/18 11:28 - Diagnostic Findings Chest x-ray: report reviewed, image reviewed - Clinical Findings Intake & Output: Intake & Output 07/08/18 07/09/18 07/09/18 23:59 07:59 15:59 Weight 83.3 kg Consult Discharge Plan - Plan Referrals: Almas Ac DO [Primary Care Provider] -
[2018-07-09] MEDS: Levofloxacin 750 MG/150 ML 750 MG/150 ML BAG IVPB SCH (16:08)
[2018-07-09 16:44] LABS: RBC,Pleural Fluid 0.003 M/mcL
[2018-07-09 16:45] LABS: Appearance of Pleural Fl Hazy (Clear)
[2018-07-09 16:53] LABS: Total Protein,Pleural Fluid 3.6 g/dL (No Ref Range)
[2018-07-09] MEDS: Insulin LISPRO 300 UNITS/3 ML VIAL SQ SCH (17:00)
--- NOTE | 2018-07-09 17:35 | Internal Med History&Physical ---
Date of Encounter: 07/09/18 Time of Encounter: 16:00 Internal Medicine - H&P: HPI Chief complaint: Coughing for about a week, sent by pcp to ER for effusion on xray History of present illness: Ms. Anthony Cook is a 57 year old female with pmh of liver hemangioma, diabetes, right below knee amputation for infection and abscess for which she is to complete a course of cefazolin for 6 weeks, GERD presenting with complaints of cough of1 week duration. Patient has ascites and pleural effusions of unclear etiology possibly secondary to liver mass requiring intermittent paracentesis and thoracentesis. She presents to the hospital today with complaints of coughing for one week, non productive, no fevers or chills. She says her PCP had her get a chest xray last week monday, but that she was notified today that her chest xray came back showing a significant pleural effusion and told her to come to the Er to have it drained. She denies any shortness of breath, abdominal pain or any other acute symptoms. In the ER, she had a thoracentesis performed with removal of 1.5 L and pulmonary was consulted Past Med Surg Social Fam HX - Past Medical History Medical history: diabetes, GERD Additional medical history: hemangioma on liver. Psychiatric history: anxiety, depression - Past Surgical History Surgical History: cholecystectomy, other Additional surgical history: Right BKA - Social History Smoking Status: Former smoker Smokeless Tobacco Status: No Alcohol use: none Drug use: none - Family History Mother Living Status: Hx Family Cardiac Disorders: Yes Hx Family Respiratory Disorders: No Hx Family Cancer: Yes Hx Family GI Disorders: No Hx Family Endocrine Disorder: No Hx Family Neuromuscular Disorders: No Hx Family Neurologic Disorders: No Hx Family HEENT Disorders: No Hx Family Autoimmune Disorders: No Father Living Status: Hx Family Cardiac Disorders: Yes Hx Family Endocrine Disorder: Yes Internal Medicine - H&P: Meds Sertraline [Zoloft] 100 mg PO DAILY 10/15/14 [History] Omeprazole [PriLOSEC] 20 mg PO DAILY 06/19/16 [History] OxyCODONE/APAP 5/325 [Percocet 5/325 MG] 5 mg PO Q8HR PRN 06/18/18 [History] Cefazolin Sodium/Water [Cefazolin 2 G/20 ml-Water Syrg] 2 gm IV TID 06/19/18 [History] Insulin Aspart Prot/Insuln Asp [Novolog Mix 70-30 Vial] 80 unit SQ BIDWM 06/19/18 [History] Furosemide [Lasix] 40 mg PO DAILY 30 Days #60 06/22/18 [Rx] Allergy/AdvReac Type Severity Reaction Status Date / Time No Known Allergies Allergy Verified 06/04/18 09:52 All Systems PM: A 10-system review of systems was performed and is negative for pertinent findings except as documented above in the HPI. - Constitutional Constitutional: no chills, no fever(s), no night sweats - EENT Eyes: no change in vision, no discharge, no pain, no photophobia Ears: no ear discharge, no ear pain, no tinnitus Nose, mouth and throat: no dysphagia, no nasal discharge, no neck pain, no sore throat - Cardiovascular Cardiovascular ROS IM: no chest pain, no diaphoresis, no dyspnea, no lightheadedness, no palpitations, no syncope - Respiratory Respiratory: cough, no dyspnea, no wheezing, no excessive phlegm production - Gastrointestinal Gastrointestinal: no abdominal pain, no diarrhea, no hematemesis, no hematochezia, no melena, no nausea, no vomiting - Genitourinary Genitourinary: no change in urinary stream, no dysuria, no flank pain, no hematuria - Musculoskeletal Musculoskeletal ROS IM: no numbness, no tingling - Integumentary Integumentary IM: no rash, no unusual bruising - Neurological Neurological ROS: no confusion, no convulsions, no focal weakness, no numbness, no tingling, no tremor(s) - Hematologic/Lymphatic Hematologic/Lymphatic: no easy bruising - Constitutional Vitals: Temp Pulse Resp BP Pulse Ox 97.7 F 88 16 137/74 90 07/09/18 15:20 07/09/18 15:20 07/09/18 15:20 07/09/18 15:20 07/09/18 15:20 Exam: NAD - Head Head exam: Present: atraumatic, normocephalic - Eye Eye exam: Present: PERRL, conjuntiva pink, sclera anicteric Pupils: Present: PERRL - Neck Neck exam general surgery: Present: supple, trachea midline. Absent: lymphadenopathy - Respiratory Respiratory exam: Present: decreased breath sounds, rales. Absent: accessory muscle use, rhonchi, wheezes - Cardiovascular Cardiovascular exam: Present: RRR, +S1, +S2. Absent: diastolic murmur, gallop, rubs, systolic murmur - GI/Abdominal GI/Abdominal exam: Present: normal bowel sounds, soft, no peritoneal signs. Absent: distended, tenderness Additional comments: Obese abdomen. not tympanitic to percussion - Extremities Exam Extremities exam: Present: warm, radial pulses palpable and symmetrical. Absent: calf tenderness, cyanotic, pedal edema - Neurological Exam Neurological exam: Present: CN II-XII intact, oriented X3, no focal deficits. Absent: pronater drift, facial droop, speech deficit - Skin Skin exam: Present: dry, intact Internal Med - H&P Results - Labs CBC & Chem 7: 07/09/18 11:42 07/09/18 11:42 Labs: Short CBC 07/09/18 Range/Units 11:42 WBC 10.9 D (4.3-11.1) K/mcL Hgb 11.9 (11.5-15.4) g/dL Hct 39.8 (35.3-44.9) % Plt Count 258 (140-400) K/mcL Neutrophils # 7.2 (1.6-8.9) K/mcL BMP 07/09/18 11:42 Sodium 143 Potassium 3.6 Chloride 103 Carbon Dioxide 31 H BUN 16 Creatinine 0.42 L Glucose 39 L* Calcium 8.9 Cardiac Enzymes 07/09/18 Range/Units 11:42 Troponin I < 0.03 (< 0.04) ng/mL Liver Function 07/09/18 Range/Units 11:42 Total Bilirubin 0.7 (0.3-1.0) mg/dL AST 11 L (13-39) Units/L ALT 4 L (7-52) Units/L Alkaline Phosphatase 107 H (34-104) Units/L Albumin 3.9 (3.5-5.7) g/dL Urine 07/09/18 Range/Units 11:28 Urine Color Yellow (Yellow) Urine Clarity Clear (Clear) Urine pH 6.0 (5.0-8.0) pH Units Ur Specific [place] 1.026 H (1.010-1.025) Urine Protein 100 H (Neg-Trace) mg/dL Urine Glucose (UA) Normal (Normal) mg/dL - Impressions ITS Impressions Chest X-Ray 07/09/18 11:21 IMPRESSION: Minimal improved appearance of the right pleural effusion. Otherwise, no change. D/ / 07/09/2018 12:25:17 Lee Silva MD / [facility] Interpreting Provider: Lee Silva MD Thoracentesis 07/09/18 13:29 IMPRESSION: Successful ultrasound guided thoracentesis. D/ / Gurdeep Altman MD / Gurdeep Altman MD Interpreting Provider: Gurdeep Altman MD Chest X-Ray 07/09/18 14:17 IMPRESSION: No pneumothorax following right lung thoracentesis. D/ / 07/09/2018 14:41:14 Lee Silva MD / [facility] Interpreting Provider: Lee Silva MD - Assessment and Plan (1) Pleural effusion, right Current Visit: Yes Status: Acute Assessment and plan: Patient comes in with one week history of cough and right sided pleural effusion Effusion Possibly secondary to pneumonia vs liver dysfunction from mass. Patient does have recurrent ascites and pleural effusions of unclear etiology Will obtain cultures, cover empirically with levaquin. Thoracentesis done in ER and 1.5L drained. Follow up pleural fluid analysis. Continue lasix. Pleural fluid appears to be transudative . Pulmonary following (2) Abscess of right lower extremity Current Visit: Yes Status: Acute Assessment and plan: s/p right extremity amputation. Wound is well healed. to continue cefazolin till July 19 (3) Diabetes mellitus Current Visit: Yes Status: Chronic Assessment and plan: Continue insulin and monitor fingersticks Qualifiers: Diabetes mellitus type: type 2 Diabetes mellitus blogs manager insulin use: with residential use Diabetes mellitus complication status: with unspecified complications Qualified Code(s): E11.8 - Type 2 diabetes mellitus with unspecified complications; Z79.4 - shipper/receiver (current) use of insulin (4) Hypoglycemia Current Visit: Yes Status: Acute Assessment and plan: Resolved (5) DVT prophylaxis Current Visit: Yes Status: Acute Assessment and plan: Heparin sc - Time Spent With Patient Total time spent is greater than 50% in coordination of care (as documented) at patient's floor/unit and/or counseling patient:
[2018-07-09 18:59] LABS: Estimated Average Glucose 255 mg/dl; Hemoglobin A1C 10.5 %
[2018-07-09] MEDS ORDERED: Insulin DETEMIR 100 UNIT/ML X5UNITS SQ SCH (21:00)
[2018-07-10 04:32] LABS: Basophils % 0.2 %; Eosinophils # 0.2 K/mcL (0.0-0.6); Eosinophils % 2.5 %; Hematocrit 36.1 % (35.3-44.9); Hemoglobin 10.7 g/dL (11.5-15.4); Immature Granulocytes % 0.7 % (0-4); Lymphocytes # 2.2 K/mcL (0.6-4.6); Lymphocytes % 26.6 %; Mean Corpuscular HGB Conc 29.6 g/dL (31.6-35.5); Mean Corpuscular Hemoglobin 23.9 pg (28.0-33.3); Mean Corpuscular Volume 80.6 fL (83.0-100.0); Monocytes # 0.4 K/mcL (0.0-1.3); Monocytes % 5.2 %; Neutrophils # 5.4 K/mcL (1.6-8.9); Platelet Count 219 K/mcL (140-400); Red Blood Count 4.48 M/mcL (3.82-4.97); Red Cell Distribution Width 16.3 % (11.5-14.5); Segmented Neutrophils % 64.8 %
[2018-07-10 04:52] LABS: BUN/Creatinine Ratio 33 (6-26); Blood Urea Nitrogen 15 mg/dL (6-20); Calcium 8.5 mg/dL (8.6-10.3); Carbon Dioxide 31 mEq/L (23-29); Chloride 103 mEq/L (98-107); Glucose 253 mg/dL (70-105); Osmolality,Calculated 295 (280-300); Phosphorous 3.7 mg/dL (2.7-4.5); Potassium 4.2 mEq/L (3.5-5.1); Sodium 138 mEq/L (136-145); eGFR For Non-African Americans > 60 (> 60)
[2018-07-10] MEDS ORDERED: *HR* Heparin 5,000 UNIT/ML VIAL SQ SCH (06:00)
[2018-07-10] MEDS: Levofloxacin 750 MG/150 ML 750 MG/150 ML BAG IVPB SCH (07:52)
[2018-07-10] MEDS: Insulin LISPRO 300 UNITS/3 ML VIAL SQ SCH ×2 (07:52→12:53)
[2018-07-10] MEDS ORDERED: Furosemide 40 MG TABLET PO SCH (09:00)
--- NOTE | 2018-07-10 11:43 | Discharge Summary ---
- NOTES TO OUTPATIENT PROVIDER Notes to Outpatient Provider: PCP in 5 to 7 days Orders not resulted at time of discharge: Pending orders 07/09/18 17:14 Culture,Body Fluid [RM] Routine Date of Encounter: 07/10/18 Time of Encounter: 11:40 - Discharge Diagnosis (1) Pleural effusion, right Priority: Primary Status: Chronic Assessment and Plan: Patient comes in with one week history of cough and right sided pleural effusion. Patient reports having recurrent ascites and pleural effusions and has been drained multiple times in the past, etiology not yet determined. Recurrent effusion possibly secondary to right lower lobe pna and or obstruction of extra-hepatic portal vein by liver hemangioma vs other cause. Cultures of fluid incubating. Will DC levaquin. Thoracentesis done in ER and 1.5L drained. so far f/u pleural fluid analysis appears to be transudative. Continue home dose lasix. Seen by director asset and suggested possible chest CT, results below. Pt is to f/u out pt with pulmonology. CTA chest CT/CT angio chest IMPRESSION: 1. No pulmonary embolism. 2. Moderate right and small left pleural effusions. 3. Right lower lobe infiltrate, consistent with atypical infection versus pneumonia. 4. Two adjacent ground-glass right upper lobe nodules, measuring up to 6 mm in size. Although stable from recent exams, these are increased from 2017. A follow-up chest CT in 1 year is recommended to document stability. 5. Severe coronary artery disease. 6. Stable partially visualized complex right hepatic mass. (2) Pneumonia of right lower lobe due to infectious organism Priority: Secondary Status: Acute Assessment and Plan: Pt denies fever or chills. Positive occasional dry cough. CTA chest showing right lower lobe infiltrate, consistent with atypical infection versus pneumonia. Will DC patient on few days of levaquin (3) Hypoglycemia Priority: Secondary Status: Acute Assessment and Plan: Resolved (4) Diabetes mellitus Priority: Secondary Status: Chronic Assessment and Plan: Continue home dose insulin Qualifiers: Diabetes mellitus type: type 2 Diabetes mellitus terminal worker insulin use: with terminal worker use Diabetes mellitus complication status: with unspecified complications Qualified Code(s): E11.8 - Type 2 diabetes mellitus with unspecified complications; Z79.4 - correction (current) use of insulin (5) Abscess of right lower extremity Priority: Secondary Status: Acute Assessment and Plan: Previous diagnosis. s/p right extremity amputation. Wound is well healed. Pt is to continue cefazolin till July 19. Hospital course: History of present illness: Radha Baum Ms. Anthony Cook is a 57 year old female with pmh of liver hemangioma, diabetes, right below knee amputation for infection and abscess for which she is to complete a course of cefazolin for 6 weeks, GERD presenting with complaints of cough of1 week duration. Patient has ascites and pleural effusions of unclear etiology possibly secondary to liver mass requiring intermittent paracentesis and thoracentesis. She presents to the hospital today with complaints of coughing for one week, non productive, no fevers or chills. She says her PCP had her get a chest xray last week monday, but that she was notified today that her chest xray came back showing a significant pleural effusion and told her to come to the Er to have it drained. She denies any shortness of breath, abdominal pain or any other acute symptoms. In the ER, she had a thoracentesis performed with removal of 1.5 L and pulmonary was consulted Discharge discussed with: patient - Time Spent with Patient Total time spent providing and/or coordinating discharge services: Time spent: Greater than 30 minutes - Discharge Medications Prescriptions: New levoFLOXacin [Levaquin] 500 mg PO DAILY 5 Days #5 tablet Continued Sertraline [Zoloft] 100 mg PO DAILY Omeprazole [PriLOSEC] 20 mg PO DAILY OxyCODONE/APAP 5/325 [Percocet 5/325 MG] 5 mg PO Q8HR PRN PRN Reason: Pain Cefazolin Sodium/Water [Cefazolin 2 G/20 ml-Water Syrg] 2 gm IV TID Insulin Aspart Prot/Insuln Asp [Novolog Mix 70-30 Vial] 80 unit SQ BIDWM Furosemide [Lasix] 40 mg PO DAILY 30 Days #60 Home Medications: Sertraline [Zoloft] 100 mg PO DAILY 10/15/14 [History] Omeprazole [PriLOSEC] 20 mg PO DAILY 06/19/16 [History] OxyCODONE/APAP 5/325 [Percocet 5/325 MG] 5 mg PO Q8HR PRN 06/18/18 [History] Cefazolin Sodium/Water [Cefazolin 2 G/20 ml-Water Syrg] 2 gm IV TID 06/19/18 [History] Insulin Aspart Prot/Insuln Asp [Novolog Mix 70-30 Vial] 80 unit SQ BIDWM 06/19/18 [History] Furosemide [Lasix] 40 mg PO DAILY 30 Days #60 06/22/18 [Rx] levoFLOXacin [Levaquin] 500 mg PO DAILY 5 Days #5 tablet 07/10/18 [Rx] Allergies/Adverse Reactions: Allergy/AdvReac Type Severity Reaction Status Date / Time No Known Allergies Allergy Verified 06/04/18 09:52 Date of admission: 07/09/18 13:48 Primary care physician: Almas Ac Consults: 07/09/18 12:42 Consult to Pulmonology [CONS] Stat Consulting Provider: [facility] [place] Reason for Consult: right pleural effusion Call Completed: Yes Discharging clinician: Ernestine Red Anticipated date of discharge: 07/10/18 - Constitutional Vitals: Temp Pulse Resp BP Pulse Ox 97.8 F 82 16 150/78 91 07/10/18 07:21 07/10/18 07:21 07/10/18 07:21 07/10/18 07:21 07/10/18 07:21 Exam: Exam: NAD - Head Head exam: Present: atraumatic, normocephalic - Eye Eye exam: Present: PERRL, conjuntiva pink, sclera anicteric Pupils: Present: PERRLA - Neck Neck exam general surgery: Present: supple, trachea midline. Absent: lymphadenopathy - Respiratory Respiratory exam: Present: decreased breath sounds, rales. Absent: accessory muscle use, rhonchi, wheezes - Cardiovascular Cardiovascular exam: Present: RRR, +S1, +S2. Absent: diastolic murmur, gallop, rubs, systolic murmur - GI/Abdominal GI/Abdominal exam: Present: normal bowel sounds, soft, no peritoneal signs. Absent: distended, tenderness Additional comments: Obese abdomen. not tympanitic to percussion - Extremities Exam Extremities exam: Present: warm, radial pulses palpable and symmetrical. Right BKA. Absent: calf tenderness, cyanotic, pedal edema - Neurological Exam Neurological exam: Present: CN II-XII intact, oriented X3, no focal deficits. Absent: pronater drift, facial droop, speech deficit - Skin Skin exam: Present: dry, intact - Patient Status Disposition: Home Health Service Condition: Good Overall status at discharge: patient is back to baseline - Discharge Instructions Follow Up With: Almas Ac DO [Primary Care Provider] - - Diet and Activity Activity: increase activity as tolerated Diet: diabetic diet, low fat, low cholesterol, low salt diet
[2018-07-10] MEDS ORDERED: Isovue-370 500 ML BOTTLE IVP ONE (11:56)
[2018-07-10 12:03] VITALS: BP 144/72
--- NOTE | 2018-07-10 15:49 | Physician Discharge Referral ---
Home Health/Hosp Referral Info Transfer to: Home Health Provider in Charge Post Discharge: PCP - Diagnosis (1) Pleural effusion, right Priority: Primary Status: Chronic (2) Pneumonia of right lower lobe due to infectious organism Priority: Primary Status: Acute (3) Hypoglycemia Status: Acute (4) Diabetes mellitus Status: Chronic (5) Abscess of right lower extremity Status: Acute - Respiratory Orders Smoking Cessation: Smoking cessation has been advised. For more information, call the [place] Tobacco Quit Line at 3-377-OKNB-NOW. - Diet/Nutrition Diet/Nutrition Orders: Cardiac, No Concentrated Sweets - Services Needed Following services are medically necessary services: Nursing, Home Health Aide, Physical Therapy - Transfer Medications Prescriptions: levoFLOXacin [Levaquin] 500 mg PO DAILY 5 Days #5 tablet Home Medications: Sertraline [Zoloft] 100 mg PO DAILY 10/15/14 [History] Omeprazole [PriLOSEC] 20 mg PO DAILY 06/19/16 [History] OxyCODONE/APAP 5/325 [Percocet 5/325 MG] 5 mg PO Q8HR PRN 06/18/18 [History] Cefazolin Sodium/Water [Cefazolin 2 G/20 ml-Water Syrg] 2 gm IV TID 06/19/18 [History] Insulin Aspart Prot/Insuln Asp [Novolog Mix 70-30 Vial] 80 unit SQ BIDWM 06/19/18 [History] Furosemide [Lasix] 40 mg PO DAILY 30 Days #60 06/22/18 [Rx] levoFLOXacin [Levaquin] 500 mg PO DAILY 5 Days #5 tablet 07/10/18 [Rx] Allergies/Adverse Reactions: Allergy/AdvReac Type Severity Reaction Status Date / Time No Known Allergies Allergy Verified 06/04/18 09:52 Certification: Further, I certify that my clinical findings support that this patient is homebound (i.e. absences from home require considerable and taxing effort and are for medical reasons or yazidism services or infrequently or short duration when for other reasons) because: Homebound Reason: Patient requires assistance of a person or device to safely leave home Attestation: My signature below is to certify that this patient is under my care and that I, or nurse practitioner, or a physician's certified nursing assistant working with me, has a [id number] encounter with this patient.
--- NOTE | 2018-07-10 16:08 | Pulmonology Progress Note ---
Date of Encounter: 07/11/18 Time of Encounter: 15:15 Assessment and Plan (1) Pleural effusion, right Status: Chronic Patient clinically feeling better and reviewing care fluid analysis this is transudate of in nature. I discussed this with the patient and primary team and patient was discharged home to follow-up as outpatient on empiric antibiotics. Subjective Principal diagnosis: Right-sided pleural effusion Interval history: Patient is feeling better. Objective PUL Vital signs: Last Vital Signs Temp 97.5 F L 07/10/18 11:56 Pulse 86 07/10/18 11:56 Resp 16 07/10/18 11:56 BP 144/72 07/10/18 11:56 Pulse Ox 94 07/10/18 11:56 General appearance: no acute distress Eyes: nonicteric ENT: oropharynx moist Neck: supple Auscultation: left: clear, right: diminished breath sounds Tactile fremitus: left: diminished Cardiovascular: regular rate and rhythm Gastrointestinal: normoactive bowel sounds, non-distended Extremities: no cyanosis, no edema normal mental status, non-focal exam mood appropriate Results - Laboratory Findings CBC and BMP: 07/10/18 04:15 07/10/18 04:15 PT/INR, D-dimer PT 13.4 Seconds (9.4-12.1) H 07/09/18 11:42 Abnormal lab findings: Abnormal lab results Hgb 10.7 g/dL (11.5-15.4) L 07/10/18 04:15 MCV 80.6 fL (83.0-100.0) L 07/10/18 04:15 MCH 23.9 pg (28.0-33.3) L 07/10/18 04:15 MCHC 29.6 g/dL (31.6-35.5) L 07/10/18 04:15 RDW 16.3 % (11.5-14.5) H 07/10/18 04:15 PT 13.4 Seconds (9.4-12.1) H 07/09/18 11:42 Carbon Dioxide 31 mEq/L (23-29) H 07/10/18 04:15 0.46 mg/dL (0.60-1.20) L 07/10/18 04:15 33 (6-26) H 07/10/18 04:15 Glucose 253 mg/dL (70-105) H 07/10/18 04:15 POC Glucose 153 mg/dL (70-99) H 07/09/18 21:50 10.5 % (-5.6) H 07/09/18 11:42 Calcium 8.5 mg/dL (8.6-10.3) L 07/10/18 04:15 AST 11 Units/L (13-39) L 07/09/18 11:42 ALT 4 Units/L (7-52) L 07/09/18 11:42 107 Units/L (34-104) H 07/09/18 11:42 B-Natriuretic Peptide 222 pg/mL (Less than 100) H 07/09/18 11:42 Ur Specific [place] 1.026 (1.010-1.025) H 07/09/18 11:28 100 mg/dL (Neg-Trace) H 07/09/18 11:28 Small (Negative) H 07/09/18 11:28 15-30 per hpf (0-3) H 07/09/18 11:28 Ur Squamous Epith Cells Many per lpf (None-Few) H 07/09/18 11:28 Pleural Appearance Hazy (Clear) A 07/09/18 14:05 Pleural RBC 0.003 M/mcL (0.000-0.002) H 07/09/18 14:05 - Clinical Findings Intake & Output: Intake & Output 07/10/18 07/10/18 07/10/18 07:59 15:59 23:59 Intake Total 220 / 700 480 / 700 Balance 220 / 700 480 / 700 Consult Discharge Plan - Plan Instructions: Levofloxacin (By mouth), Pleural Effusion (DC), Bacterial Pneumonia (DC) Additional Instructions: Continue IV antibiotics per [facility] per previous Please complete course of by mouth antibiotics that we prescribed on d/c. Referrals: Almas Ac DO [Primary Care Provider] - 07/10/18 2:00 pm Ilir Sanchez MD [Partnered Physician] - 07/19/18 8:30 am Prescriptions: levoFLOXacin [Levaquin] 500 mg PO DAILY 5 Days #5 tablet
--- NOTE | 2018-07-10 16:18 | Electrocardiograph Report ---
[facility] [employer] Test Date: 2018-07-09 Pat Name: Maggie Cook Department: [id number] Room: 2NE20 Gender: F Gill Box Operator: : [id number] Requested By: Kim Greenwood Order Number: [id number] Reading MD: Almas Aguila Measurements Intervals [place] Rate: 91 P: 76 [place]: 147 QRS: 133 QRSD: 99 T: QT: 476 QTc: 586 Interpretive Statements Sinus rhythm Right axis deviation Borderline repolarization abnormality Prolonged QT interval Baseline wander in lead(s) II aVR V2 Electronically Signed On 07-10-2018 16:16:31 EDT by Almas Aguila
== END 2018-07-10 15:49 | disposition home health service (06) ==
LOC: EMEROOARM 10:23 → 2NENU 10:23
PROVIDERS: ADMIT Student in an Organized Health Care Education/Training Program; ATTEND Student in an Organized Health Care Education/Training Program

== ENCOUNTER 2020-07-03 14:40 | Inpatient (IN) ==
[2020-07-03 15:54] LABS: Basophils % 0.4 %; Eosinophils % 0.2 %; Hematocrit 39.4 % (35.3-44.9); Hemoglobin 11.7 g/dL (11.5-15.4); Immature Granulocytes % 0.9 % (0-4); Lymphocytes # 0.6 K/mcL (0.6-4.6); Lymphocytes % 11.3 %; Mean Corpuscular HGB Conc 29.7 g/dL (31.6-35.5); Mean Corpuscular Volume 77.6 fL (83.0-100.0); Mean Platelet Volume 9.5 fL (9.4-12.4); Monocytes # 0.5 K/mcL (0.0-1.3); Monocytes % 8.6 %; Neutrophils # 4.2 K/mcL (1.6-8.9); Platelet Count 210 K/mcL (140-400); Red Blood Count 5.08 M/mcL (3.82-4.97); Red Cell Distribution Width 16.5 % (11.5-14.5); Segmented Neutrophils % 78.6 %; White Blood Count 5.3 K/mcL (4.3-11.1)
[2020-07-03 16:04] LABS: Bacteria,Urine Few per hpf (None-Few); Bilirubin,Urine Negative (Negative); Blood,Urine Negative (Negative); Clarity,Urine Clear (Clear); Color,Urine Colorless (Yellow); Glucose,Urine (UA) >=1000 mg/dL (Normal); Ketones,Urine Trace mg/dL (Negative); Leukocyte Esterase,Urine Negative (Negative); Mucus,Urine Few per lpf (None-Few); Nitrite,Urine Negative (Negative); PH,Urine 6.5 pH Units (5.0-8.0); Protein,Urine Trace mg/dL (Neg-Trace); RBC,Urine 0-3 per hpf (0-3); Specific Gravity,Urine 1.025 (1.010-1.025); Squamous Epithelial Cell,Urine Few per hpf (None-Few); Urobilinogen,Urine Normal (Normal); WBC,Urine 0-3 per hpf (0-3)
[2020-07-03 16:20] LABS: Alanine Aminotransferase 6 Units/L (7-52); Alkaline Phosphatase 104 Units/L (34-104); Aspartate Amino Transferase 9 Units/L (13-39); BUN/Creatinine Ratio 25 (6-26); Bilirubin,Total 0.7 mg/dL (0.3-1.0); Blood Urea Nitrogen 15 mg/dL (6-20); Calcium 7.9 mg/dL (8.6-10.3); Carbon Dioxide 27 mEq/L (23-29); Chloride 97 mEq/L (98-107); Glucose 539 mg/dL (70-105); Lipase 9 Units/L (11-82); Osmolality,Calculated 291 (280-300); Potassium 5.9 mEq/L (3.5-5.1); Sodium 128 mEq/L (136-145); Troponin I < 0.03 ng/mL (< 0.04); eGFR For African Americans > 60 (> 60); eGFR For Non-African Americans > 60 (> 60)
[2020-07-03] MEDS ORDERED: 0.9 % Sodium Chloride 1,000 ML IVC ONE (16:25)
[2020-07-03] MEDS ORDERED: Insulin Human Regular 8 UNIT in 0.9 % Sodium Chloride 10 ML SUBQ ONE (16:26)
[2020-07-03] MEDS ORDERED: Dexamethasone 4 MG/ML VIAL IVP ONE (16:47)
[2020-07-03 18:52] LABS: Ferritin 348 ng/mL (10-120)
[2020-07-03] MEDS ORDERED: Naloxone 0.4 MG/ML INJ IVP PRN (19:21)
[2020-07-03] MEDS ORDERED: Ibuprofen 400 MG TABLET PO PRN (19:21)
[2020-07-03] MEDS ORDERED: Ondansetron 4 MG/2 ML VIAL IVP PRN (19:21)
[2020-07-03] MEDS ORDERED: D5% in 0.45% NACL 1,000 ML IVC PRN (19:26)
[2020-07-03] MEDS ORDERED: *HR* Dextrose 50 % in Water (Vial) 50 ML VIAL IVP PRN (19:26)
[2020-07-03] MEDS ORDERED: Insulin Regular, Human 100 UNIT/ML IV PRN (19:26)
[2020-07-03 20:38] LABS: VBG HCO3 26 mEq/L (21-27); VBG PCO2 47 mmHg (41-51); VBG PH 7.35 pH Units (7.32-7.42); VBG PO2 35 mmHg (25-50)
[2020-07-03] MEDS ORDERED: 0.45 % Sodium Chloride w/KCl 20 MEQ/1,000 ML MLS IVC PRN (22:49)
[2020-07-03] MEDS: *HR* OxyCODONE Immed Rel 5 MG TABLET PO PRN (23:56)
[2020-07-04 00:26] LABS: Hematocrit 37.4 % (35.3-44.9); Hemoglobin 11.1 g/dL (11.5-15.4); Immature Granulocytes % 1.5 % (0-4); Lymphocytes # 0.3 K/mcL (0.6-4.6); Lymphocytes % 8.1 %; Mean Corpuscular HGB Conc 29.7 g/dL (31.6-35.5); Mean Corpuscular Hemoglobin 22.7 pg (28.0-33.3); Mean Corpuscular Volume 76.6 fL (83.0-100.0); Mean Platelet Volume 9.3 fL (9.4-12.4); Monocytes # 0.2 K/mcL (0.0-1.3); Monocytes % 4.2 %; Neutrophils # 3.5 K/mcL (1.6-8.9); Platelet Count 213 K/mcL (140-400); Red Blood Count 4.88 M/mcL (3.82-4.97); Red Cell Distribution Width 16.5 % (11.5-14.5); Segmented Neutrophils % 86.2 %; White Blood Count 4.1 K/mcL (4.3-11.1)
[2020-07-04 00:46] LABS: D-Dimer 2688 ng/mLFEU (0-500)
[2020-07-04 00:51] LABS: Fibrinogen 811 mg/dL (169-393)
[2020-07-04 00:55] LABS: Alanine Aminotransferase 6 Units/L (7-52); Alkaline Phosphatase 98 Units/L (34-104); Aspartate Amino Transferase 8 Units/L (13-39); BUN/Creatinine Ratio 27 (6-26); Bilirubin,Direct 0.2 mg/dL (0.0-0.2); Bilirubin,Indirect 0.3 mg/dL (0.0-1.0); Bilirubin,Total 0.5 mg/dL (0.3-1.0); Blood Urea Nitrogen 14 mg/dL (6-20); Calcium 7.8 mg/dL (8.6-10.3); Carbon Dioxide 25 mEq/L (23-29); Chloride 102 mEq/L (98-107); Globulin 2.9 g/dL (2.4-3.5); Glucose 335 mg/dL (70-105); Magnesium 2.1 mg/dL (1.6-2.6); Osmolality,Calculated 290 (280-300); Potassium 4.2 mEq/L (3.5-5.1); Sodium 133 mEq/L (136-145); Total Protein 5.9 g/dL (6.4-8.9); eGFR For African Americans > 60 (> 60); eGFR For Non-African Americans > 60 (> 60)
[2020-07-04] MEDS: D5% in 0.45% NACL w KCl 20 MEQ/1,000 ML MLS IVC PRN ×2 (01:42→05:23)
[2020-07-04] MEDS: *HR* Enoxaparin 40 MG/0.4 ML SYRINGE SQ SCH (05:01)
[2020-07-04] MEDS ORDERED: Isovue-370 500 ML BOTTLE IVP ONE (07:38)
[2020-07-04] MEDS ORDERED: Dextrose Gel 15 GM/37.5 ML TUBE PO PRN ×2 (07:41)
[2020-07-04] MEDS ORDERED: *HR* Dextrose 50 % in Water (Vial) 50 ML VIAL IVP PRN (07:41)
[2020-07-04] MEDS ORDERED: D5% in Water 1,000 ML IVC PRN (07:41)
[2020-07-04] MEDS: Dexamethasone 4 MG/ML VIAL IVP SCH (10:37)
[2020-07-04] MEDS ORDERED: Insulin LISPRO 300 UNITS/3 ML VIAL SUBQ SCH ×2 (11:30→21:00)
[2020-07-04] MEDS ORDERED: Insulin NPH/REG 70/30 100 UNIT/ML (x5UNIT) SUBQ SCH (16:30)
[2020-07-04] MEDS ORDERED: Insulin LISPRO 300 UNITS/3 ML VIAL SUBQ ONE (20:34)
[2020-07-04] MEDS: *HR* OxyCODONE Immed Rel 5 MG TABLET PO PRN (23:26)
[2020-07-05] MEDS ORDERED: Insulin LISPRO 300 UNITS/3 ML VIAL SUBQ ONE (00:32)
[2020-07-05 02:09] LABS: Basophils % 0.1 %; Eosinophils % 0.1 %; Hematocrit 37.8 % (35.3-44.9); Hemoglobin 11.4 g/dL (11.5-15.4); Immature Granulocytes % 1.3 % (0-4); Lymphocytes # 0.8 K/mcL (0.6-4.6); Lymphocytes % 10.8 %; Mean Corpuscular HGB Conc 30.2 g/dL (31.6-35.5); Mean Corpuscular Hemoglobin 23.2 pg (28.0-33.3); Mean Platelet Volume 9.6 fL (9.4-12.4); Monocytes # 0.5 K/mcL (0.0-1.3); Monocytes % 5.9 %; Neutrophils # 6.2 K/mcL (1.6-8.9); Platelet Count 271 K/mcL (140-400); Red Blood Count 4.91 M/mcL (3.82-4.97); Red Cell Distribution Width 16.5 % (11.5-14.5); Segmented Neutrophils % 81.8 %
[2020-07-05 02:11] LABS: White Blood Count 7.6 K/mcL (4.3-11.1)
[2020-07-05 02:25] LABS: BUN/Creatinine Ratio 34 (6-26); Blood Urea Nitrogen 19 mg/dL (6-20); Calcium 8.2 mg/dL (8.6-10.3); Carbon Dioxide 22 mEq/L (23-29); Chloride 102 mEq/L (98-107); Glucose 321 mg/dL (70-105); Magnesium 2.1 mg/dL (1.6-2.6); Osmolality,Calculated 291 (280-300); Potassium 4.8 mEq/L (3.5-5.1); Sodium 133 mEq/L (136-145); eGFR For African Americans > 60 (> 60); eGFR For Non-African Americans > 60 (> 60)
[2020-07-05 02:27] LABS: Fibrinogen 672 mg/dL (169-393)
[2020-07-05 02:28] LABS: D-Dimer 2791 ng/mLFEU (0-500)
[2020-07-05] MEDS: *HR* Enoxaparin 40 MG/0.4 ML SYRINGE SQ SCH (06:01)
[2020-07-05] MEDS: Dexamethasone 4 MG/ML VIAL IVP SCH (09:30)
[2020-07-06 07:01] VITALS: BP 94/61
== END 2020-07-05 13:02 | disposition home or self-care (01) | DRG 177 ==
LOC: 2NENU 14:40 → EMEROOARM 14:40 → SUATTDRO 18:23 → 2NENU 19:39
PROVIDERS: ADMIT Pharmacist; ATTEND Pharmacist